=== PATIENT | female | born 1955 | race African-American/Black ===

== ENCOUNTER 2018-11-20 16:05 | Observation (INO) | payer OTHER ==
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
--- OUTSIDE RECORDS SUMMARY | 2018-11-20 16:08 | XMS REPORT | Clinical Summary ---
:1955 Author Organization [facility] Address [address] [place] [address] Care Team Providers Name Role Phone Michelle Pollard MD Primary Care Provider Allergies No Known Allergies Medications Medication Sig Dispensed Refills Start Date End Date Status metoprolol succinate Take 25 mg by 0 Active XL (TOPROL-XL) 25 MG mouth daily. 24 hr tablet zolpidem (AMBIEN) 10 Take 10 mg by 0 Active mg tablet mouth nightly as needed for sleep. therapeutic Take 1 tablet by 0 Active multivitamin mouth daily. (THERAGRAN) tablet exemestane (AROMASIN) Take 25 mg by 3 04/08/2017 Active 25 mg chemo tablet mouth once daily. atorvastatin (LIPITOR) Take 10 mg by 3 04/27/2017 Active 10 MG tablet mouth once daily. HYDROcodone-acetaminop Take 1 tablet by 0 Active hen (NORCO) 5-325 mg mouth every 6 per tablet (six) hours as needed for moderate pain. ASPIRIN/CAFFEINE Take 500 mg by 0 Active (MOLLY BACK AND BODY mouth as needed. ORAL) Active Problems Problem Noted Date Recurrent left pleural effusion 09/01/2016 Pleural effusion on left 08/25/2016 Family History Medical History Relation Name Comments Lung cancer Father Breast cancer Sister Breast cancer Sister Ovarian cancer Sister Relation Name Status Comments Father Sister Sister Sister Social History Tobacco Use Types Packs/Day Years Used Date Former Smoker Cigarettes 5 Quit: 06/03/1997 Alcohol Use Drinks/Week oz/Week Comments No Sex Assigned at Date Recorded Not on file Job Start Date Occupation Industry Not on file Not on file Not on file Travel History Travel Start Travel End No recent travel history available. Last Filed Vital Signs Not on file Plan of Treatment Health Maintenance Due Date Last Done Comments CERVICAL CANCER SCREENING 1977 COLON CANCER SCREENING 2006 SHINGLES VACCINES (1 of 2) 2006 BREAST CANCER SCREENING 04/08/2014 04/08/2012 INFLUENZA VACCINE 06/08/2018 Results Not on fileafter 11/19/2017 Insurance Payer Benefit Plan / Group Subscriber ID Type Phone Address MEDICARE MEDICARE PART A AND B xxxxxxxxxx Medicare [place], [place] MEDICAID MEDICAID xxxxxxxxx Medicaid Advance Directives Patient has advance care planning documents on file. For more information, please contact:Don Sam[address] [place] [address]
[2018-11-20] MEDS ORDERED: TETANUS & DIPHTHERIA TOX,ADULT 0.5 ML VIAL ONE (16:21)
--- NOTE | 2018-11-20 17:23 | RAD REPORT ---
EXAM DESCRIPTION: RAD - Chest Single View - 11/20/2018 5:13 pm CLINICAL HISTORY: CHEST PAIN Chest pain. COMPARISON: Chest Pa And Lat (2 Views) dated 01/11/2018; Chest Single View dated 08/21/2016; Chest Sin gle View dated 08/21/2016; Chest Single View dated 08/20/2016 FINDINGS: Portable technique limits examination quality. Emphysematous changes are present with a small amount of haziness in the left base with a small left pleural effusion. The heart is normal in size. Mild dextroscoliosis of the thoracic spine is present.
[2018-11-20 17:26] LABS: Absolute Lymphocytes (CBC) 2.8 K/uL (0.7-4.9); Absolute Monocytes 0.4 K/uL (0.1-1.3); Absolute Neutrophil 2.7 K/uL (1.8-8.0); Basophils % 2.1 % (0-1.3); Eosinophils % 2.2 % (0-4.4); Hematocrit 35.8 % (36.0-45.0); Lymphocytes % 45.7 % (15.3-44.8); MPV 7.4 fL (7.6-11.3); Monocytes % 7.1 % (3.3-12.3); RBC Red Blood Cell Count 3.45 M/uL (3.86-4.86)
[2018-11-20 17:30] LABS: Protime INR 1.03
[2018-11-20 17:46] LABS: Albumin 3.4 g/dL (3.4-5.0); Bilirubin Direct 0.1 mg/dL (0-0.2); Bilirubin Total 0.4 mg/dL (0.2-1.0); Magnesium 2.2 mg/dL (1.8-2.4); Potassium 4.2 mmol/L (3.5-5.1); Protein, Total 7.7 g/dL (6.4-8.2); Troponin (Emerg Dept Use Only) 0.02 ng/mL (0.0-0.045)
[2018-11-20] MEDS ORDERED: LEVALBUTEROL 1.25 MG/3 ML NEB ONE (18:02)
[2018-11-20 18:27] LABS: Platelet Estimate DECR; Urine White Blood Cell Casts OK
[2018-11-20 18:28] LABS: Blood Morphology Comment NOT SEEN (NOT SEEN)
--- NOTE | 2018-11-20 20:21 | EDPHYS ---
Physician Documentation [facility] Name: Angie Spring Age: 63 yrs Sex: Female : 1955 Arrival Date: 11/20/2018 Time: 16:06 Bed 6 Private MD: Michelle Pollard ED Physician Fernando Anderson HPI: 11/20 16:24 This 63 yrs old Black Female presents to ER via Wheelchair with complaints of Chest jmm Pain, Shortness Of Breath. 16:24 The patient or guardian reports chest pain that is located primarily in the substernal jmm area. Onset: gradually, 1 week(s) ago. The pain does not radiate. Associated signs and symptoms: Pertinent positives: shortness of breath. The chest pain is described as aching, sharp. Duration: The patient or guardian reports multiple episodes, that are intermittent. This is a 63 year old female with a history of breast cancer, htn, that presents to the ED with substernal chest pain beginning approx a week ago with shortness of breath. Patient denies fever. States symptoms are worsened with exertion. . Historical: - Allergies: 16:12 No Known Allergies; aj1 - Home Meds: 16:12 anastrozole Oral [Active]; metoprolol [Active]; Zolpidem Tartrate Oral [Active]; aj1 - PMHx: 16:12 breast cancer; Hypertension; lymphedema; fluid around lungs; aj1 - Immunization history:: Flu vaccine is up to date. - Social history:: Smoking status: Patient/guardian denies using tobacco. - Ebola Screening: : Patient denies travel to an Ebola-affected area in the 21 days before illness onset. ROS: 16:24 Constitutional: Negative for fever, chills, and weight loss, Eyes: Negative for injury, jmm pain, redness, and discharge. 16:24 Abdomen/GI: Negative for abdominal pain, nausea, vomiting, diarrhea, and constipation, MS/Extremity: Negative for injury and deformity, Skin: Negative for injury, rash, and discoloration, Neuro: Negative for headache, weakness, numbness, tingling, and seizure. 16:24 Cardiovascular: Positive for chest pain. 16:24 Respiratory: Positive for shortness of breath. 16:24 All other systems are negative. Exam: 16:24 Constitutional: This is a well developed, well nourished patient who is awake, alert, jmm and in no acute distress. Head/Face: atraumatic. Eyes: EOMI, no conjunctival erythema appreciated ENT: Moist Mucus Membranes Neck: Trachea midline, Supple Chest/axilla: Normal chest wall appearance and motion. Cardiovascular: Regular rate and rhythm. No edema appreciated Respiratory: Normal respirations, no respiratory distress appreciated Abdomen/GI: Non distended, soft Back: Normal ROM Skin: General appearance color normal MS/ Extremity: Moves all extremities, no obvious deformities appreciated, no edema noted to the lower extremities Neuro: Awake and alert, normal gait Psych: Behavior is normal, Mood is normal, Patient is cooperative and pleasant 16:24 Cardiovascular: Rate: normal, Rhythm: regular, Pulses: no pulse deficits are appreciated. 16:24 Respiratory: the patient does not display signs of respiratory distress, Respirations: normal, Breath sounds: are clear throughout. Vital Signs: 16:12 BP 141 / 75; Pulse 99; Resp 28; Temp 97.7; Pulse Ox 100% on R/A; Weight 95.25 kg (R); aj1 Height 5 ft. 8 in. (172.72 cm) (R); Pain 6/10; 16:56 Pulse 89; Resp 24; Pulse Ox 98% ; sv 17:40 BP 121 / 74; Pulse 88; Resp 18; Pulse Ox 98% on R/A; sv 18:47 BP 131 / 86; Pulse 93; Resp 16; Pulse Ox 98% on R/A; sv 21:34 BP 122 / 73; Pulse 95; Resp 18; Pulse Ox 97% on R/A; tl2 23:00 BP 122 / 73; Pulse 98; Resp 22; Pulse Ox 97% on R/A; tl2 16:12 Body Mass Index 31.93 (95.25 kg, 172.72 cm) aj1 MDM: 16:24 Patient medically screened. [facility] 20:19 Data reviewed: vital signs, nurses notes. Counseling: I had a detailed discussion with karan the patient and/or guardian regarding: the historical points, exam findings, and any diagnostic results supporting the discharge/admit diagnosis, lab results, radiology results, the need for further work-up and treatment in the hospital. ED course: I discussed the patient with Dr. Yeung whom accepted admission. 11/20 16:25 Order name: Basic Metabolic Panel; Complete Time: 17:48 [facility] 11/20 16:25 Order name: CBC with Diff; Complete Time: 18:28 [facility] 11/20 16:25 Order name: LFT's; Complete Time: 17:48 [facility] 11/20 16:25 Order name: Magnesium; Complete Time: 17:48 [facility] 11/20 16:25 Order name: NT PRO-BNP; Complete Time: 17:48 [facility] 11/20 16:25 Order name: PT-INR; Complete Time: 17:44 [facility] 11/20 16:25 Order name: Troponin (emerg Dept Use Only); Complete Time: 17:48 [facility] 11/20 16:25 Order name: XRAY Chest (1 view); Complete Time: 17:30 [facility] 11/20 16:25 Order name: EKG; Complete Time: 16:26 [facility] 11/20 16:25 Order name: Cardiac monitoring; Complete Time: 16:54 [facility] 11/20 17:31 Order name: CBC Smear Scan; Complete Time: 18:28 [facility] 11/20 20:12 Order name: D-Dimer [facility] 11/20 16:25 Order name: EKG - Nurse/Tech; Complete Time: 16:54 [facility] 11/20 16:25 Order name: IV Saline Lock; Complete Time: 16:54 [facility] 11/20 16:25 Order name: Labs collected and sent; Complete Time: 16:54 [facility] 11/20 16:25 Order name: O2 Per Protocol; Complete Time: 16:54 [facility] 11/20 16:25 Order name: O2 Sat Monitoring; Complete Time: 16:54 [facility] Administered Medications: 17:56 Drug: Xopenex (3) 1.25 mg Route: Inhalation; sv 22:27 Drug: Aspirin Chewable Tablet 324 mg Route: PO; tl2 11/21 00:13 Follow up: Response: No adverse reaction lp1 Disposition: 11/20/18 20:20 Hospitalization ordered by Jonathon Yeung for Observation. Preliminary diagnosis is Chest pain, unspecified. - Bed requested for Telemetry/MedSurg (observation). - Status is Observation. lp1 - Condition is Stable. - Problem is new. - Symptoms are unchanged. UTI on Admission? No Addendum: 11/25/2018 01:34 Co-signature as Attending Physician, Fernando Anderson MD. g s Signatures: Dispatcher [employer] EDOK Lorrie Mejia, RN RN aj1 Brigid Pichardo, RN RN Sen Calderon PA PA [facility] Lia Vega, RN RN Leticia Astudillo, RN RN lp1 Leyda Siu, RN RN tl2 Fernando Anderson MD MD Corrections: (The following items were deleted from the chart) 11/20 22:35 20:20 Hospitalization Ordered by Jonathon Yeung MD for Observation. Preliminary diagnosis is Chest pain, unspecified. Bed requested for Telemetry/MedSurg (observation). Status is Observation. Condition is Stable. Problem is new. Symptoms are unchanged. UTI on Admission? No. [facility] 11/21 00:13 11/20 22:35 11/20/2018 20:20 Hospitalization Ordered by Jonathon Yeung MD for lp1 Observation. Preliminary diagnosis is Chest pain, unspecified. Bed requested for Telemetry/MedSurg (observation). Status is Observation. Condition is Stable. Problem is new. Symptoms are unchanged. UTI on Admission? No. fc
--- NOTE | 2018-11-20 20:21 | ER ---
Nurse's Notes [facility] Name: Angie Spring Age: 63 yrs Sex: Female : 1955 Arrival Date: 11/20/2018 Time: 16:06 Bed 6 Private MD: Michelle Pollard Diagnosis: Chest pain, unspecified Presentation: 11/20 16:09 Presenting complaint: Patient states: Shortness of breath, light headedness, chest pain aj1 for the past week. Reports nasal congestion and discharge, denies cough. Denies fever. Transition of care: patient was not received from another setting of care. Onset of symptoms was November 13, 2017. Risk Assessment: Do you want to hurt yourself or someone else? Patient reports no desire to harm self or others. Initial Sepsis Screen: Does the patient meet any 2 criteria? HR > 90 bpm. No. Patient's initial sepsis screen is negative. Does the patient have a suspected source of infection? No. Patient's initial sepsis screen is negative. Care prior to arrival: None. 16:09 Method Of Arrival: Wheelchair aj1 16:09 Acuity: KAT 3 aj1 Triage Assessment: 16:12 General: Appears in no apparent distress. uncomfortable, Behavior is calm, cooperative, aj1 appropriate for age. Pain: Complains of pain in chest Pain currently is 6 out of 10 on a pain scale. Is intermittent. Neuro: Level of Consciousness is awake, alert, obeys commands. Cardiovascular: Reports chest pain, lightheadedness, shortness of breath, Patient's skin is warm and dry. Respiratory: Reports shortness of breath Airway is patent Respiratory effort is even, labored, Respiratory pattern is regular, symmetrical, tachypnea. Historical: - Allergies: 16:12 No Known Allergies; aj1 - Home Meds: 16:12 anastrozole Oral [Active]; metoprolol [Active]; Zolpidem Tartrate Oral [Active]; aj1 - PMHx: 16:12 breast cancer; Hypertension; lymphedema; fluid around lungs; aj1 - Immunization history:: Flu vaccine is up to date. - Social history:: Smoking status: Patient/guardian denies using tobacco. - Ebola Screening: : Patient denies travel to an Ebola-affected area in the 21 days before illness onset. Screenin:02 Abuse screen: Denies threats or abuse. Denies injuries from another. Nutritional sv screening: No deficits noted. Tuberculosis screening: No symptoms or risk factors identified. Fall Risk None identified. Assessment: 16:50 General: Appears in no apparent distress. uncomfortable, well developed, Behavior is sv calm, cooperative, appropriate for age. Pain: Complains of pain in chest Pain does not radiate. Pain currently is 6 out of 10 on a pain scale. Pain began suddenly, Is intermittent. Neuro: Level of Consciousness is awake, alert, obeys commands, Oriented to person, place, time, situation, Moves all extremities. Full function Gait is steady. Respiratory: Reports shortness of breath at rest on exertion Respiratory effort is even, unlabored, Respiratory pattern is regular, symmetrical. Derm: Skin is normal. 16:54 Reassessment: Inside lab called to get blood from pt. sv 17:02 Reassessment: Lab at bedside. sv 17:56 Reassessment: Patient appears in no apparent distress at this time. No changes from sv previously documented assessment. Patient and/or family updated on plan of care and expected duration. Pain level reassessed. Patient is alert, oriented x 3, equal unlabored respirations, skin warm/dry/pink. 18:20 Reassessment: Patient appears in no apparent distress at this time. No changes from sv previously documented assessment. Patient and/or family updated on plan of care and expected duration. Pain level reassessed. Patient is alert, oriented x 3, equal unlabored respirations, skin warm/dry/pink. 19:20 General: Appears in no apparent distress. uncomfortable, Behavior is calm, cooperative, lp1 appropriate for age. Pain: Complains of pain in chest Pain does not radiate. Neuro: Level of Consciousness is awake, alert, obeys commands, Oriented to person, place, time, situation. Cardiovascular: Chest pain is described as vague, is located in chest wall episodes are intermittent. Respiratory: Reports shortness of breath Airway is patent Respiratory effort is even, unlabored, Respiratory pattern is regular, symmetrical. GI: No signs and/or symptoms were reported involving the gastrointestinal system. Derm: Skin is pink, warm \T\ dry. 21:00 Reassessment: Patient appears in no apparent distress at this time. Patient and/or lp1 family updated on plan of care and expected duration. Pain level reassessed. Patient is alert, oriented x 3, equal unlabored respirations, skin warm/dry/pink. 22:30 Reassessment: Patient appears in no apparent distress at this time. Patient and/or tl2 family updated on plan of care and expected duration. Pain level reassessed. Patient is alert, oriented x 3, equal unlabored respirations, skin warm/dry/pink. 23:30 Reassessment: Patient appears in no apparent distress at this time. Patient and/or lp1 family updated on plan of care and expected duration. Pain level reassessed. Patient is alert, oriented x 3, equal unlabored respirations, skin warm/dry/pink. pt stable and ready for transport to floor. Vital Signs: 16:12 BP 141 / 75; Pulse 99; Resp 28; Temp 97.7; Pulse Ox 100% on R/A; Weight 95.25 kg (R); aj1 Height 5 ft. 8 in. (172.72 cm) (R); Pain 6/10; 16:56 Pulse 89; Resp 24; Pulse Ox 98% ; sv 17:40 BP 121 / 74; Pulse 88; Resp 18; Pulse Ox 98% on R/A; sv 18:47 BP 131 / 86; Pulse 93; Resp 16; Pulse Ox 98% on R/A; sv 21:34 BP 122 / 73; Pulse 95; Resp 18; Pulse Ox 97% on R/A; tl2 23:00 BP 122 / 73; Pulse 98; Resp 22; Pulse Ox 97% on R/A; tl2 16:12 Body Mass Index 31.93 (95.25 kg, 172.72 cm) [facility] Vitals: 21:34 Cardiac Rhythm Assessment Sinus rhythm. tl2 ED Course: 16:05 Patient has correct armband on for positive identification. Placed in gown. Bed in low sv position. Call light in reach. lead maintenance technician on. Pulse ox on. NIBP on. Door closed. Warm blanket given. Head of bed elevated. 16:06 Patient arrived in ED. sb2 16:07 Michelle Pollard MD is Private Physician. sb2 16:12 Triage completed. aj 16:12 Arm band placed on Patient placed in an exam room. [facility] 16:18 [facility] 16:18 Fernando Anderson MD is Attending Physician. [facility] 16:36 Brigid Pichardo, RN is Primary Nurse. sv 16:50 Inserted saline lock: 22 gauge in left forearm, using aseptic technique. Flushed left sv forearm with 5 ml normal saline. 16:52 X-ray(s) taken. sv 17:03 Patient maintains SpO2 saturation greater than 95% on room air. sv 17:14 XRAY Chest (1 view) In Process Unspecified. EDMS 20:03 Primary Nurse role handed off by Brigid Pichardo, SEVERIANO sv 20:20 Jonathon Yeung MD is Hospitalizing Provider. [facility] 22:15 Notified ED physician of a critical lab result(s). d dimer 1720 - notified Dr Yeung. 23:30 No provider procedures requiring assistance completed. Patient admitted, IV remains in lp1 place. Administered Medications: 17:56 Drug: Xopenex (3) 1.25 mg Route: Inhalation; sv 22:27 Drug: Aspirin Chewable Tablet 324 mg Route: PO; tl2 11/21 00:13 Follow up: Response: No adverse reaction lp1 Outcome: 11/20 20:20 Decision to Hospitalize by Provider. [facility] 23:30 Admitted to Tele accompanied by tech, via stretcher, room 428, with chart, Report lp1 called to SEVERIANO Lucero 23:30 Condition: stable 23:30 Discharge instructions given to patient, Instructed on the need for admit. 11/21 00:13 Patient left the ED. lp1 Signatures: Dispatcher [employer] EDMS Lorrie Mejia RN RN aj1 Brigid Pichardo, RN RN Sen Galindo PA PA [facility] Lia Vega RN RN eLticia Astudillo RN RN lp1 Leyda Siu RN RN tl2 Anna Hilario sb2 Corrections: (The following items were deleted from the chart) 11/20 17:03 16:50 Inserted saline lock: 20 gauge in left forearm, using aseptic technique. Flushed sv left forearm with 5 ml normal saline sv
--- NOTE | 2018-11-20 21:44 | P.HP ---
Certification for Inpatient Patient admitted to: Observation With expected LOS: <2 Midnights Practitioner: I am a practitioner with admitting privileges, knowledge of patient current condition, hospital course, and medical plan of care. Services: Services provided to patient in accordance with Admission requirements found in Title 42 Section 412.3 of the Code of Federal Regulations Patient History Date of Service: 11/20/18 Reason for admission: chest pain History of Present Illness: Ms Spring is a 63 years old woman with history of breast cancer, HTN, Dyslipidemia, who came to ED complaining of episodes of SOB associated with chest pain, nasal congestion for about 1 week. She has had subjective fever episodes at home. She describe the chest pain as pressure like in substernal area, comes and go, lasting for 3-4 minutes each time, 5/10 of intensity. She has never had this pain before. Lab work shows normal WBC count, negative trop I , abnormal kidney function, EKG shows SR without ST-T abnormalities. Afebrile at arrival, CXR remarkable for COPD. Allergies No Known Allergies Allergy (Verified 08/18/16 03:47) Home Medications: Anastrozole [Arimidex*] 1 mg PO DAILY 08/18/16 Lovastatin [Mevacor*] 20 mg PO BEDTIME 08/18/16 Metoprolol Tartrate [Lopressor*] 25 mg PO DAILY 08/18/16 Zolpidem Tartrate [Ambien*] 10 mg PO BEDTIME PRN PRN 08/18/16 - Past Medical/Surgical History Diabetic: No -: Thyroid disease -: Breast cancer -: hypertension -: Insomnia -: Dyslipidemia -: Lumpectomy -: Thyroidectomy - Social History Smoking Status: Former smoker Alcohol use: No CD- Drugs: No Caffeine use: No Place of Residence: Home Review of Systems 10-point ROS is otherwise unremarkable Physical Examination - Physical Exam General: Alert, In no apparent distress HEENT: Atraumatic, PERRLA, Mucous membr. moist/pink, EOMI, Sclerae nonicteric Neck: Supple, 2+ carotid pulse no bruit, No LAD, Without JVD or thyroid abnormality Respiratory: Clear to auscultation bilaterally, Normal air movement Cardiovascular: Regular rate/rhythm, Normal S1 S2 Gastrointestinal: Normal bowel sounds, No tenderness Musculoskeletal: No tenderness Integumentary: No rashes Neurological: Normal gait, Normal speech, Normal strength at 5/5 x4 extr, Normal tone, Normal affect Lymphatics: No axilla or inguinal lymphadenopathy - Studies Laboratory Data (last 24 hrs) 11/20/18 17:05: PT 12.2, INR 1.03 11/20/18 17:05: WBC 6.2, Hgb 12.2, Hct 35.8 L, Plt Count 152 11/20/18 17:05: Sodium 143, Potassium 4.2, BUN 18, Creatinine 1.88 H, Glucose 103, Magnesium 2.2, Total Bilirubin 0.4, AST 19, ALT 15, Alkaline Phosphatase 57 Assessment and Plan - Problems (Diagnosis) (1) Breast cancer Current Visit: No Status: Acute Qualifiers: Breast location: unspecified site of breast Estrogen receptor status: unspecified Patient sex: female Laterality: unspecified laterality Qualified Code(s): C50.919 - Malignant neoplasm of unspecified site of unspecified female breast (2) Hypertension Current Visit: No Status: Acute Qualifiers: Hypertension type: essential hypertension Qualified Code(s): I10 - Essential (primary) hypertension (3) SOB (shortness of breath) Onset Date: 08/18/16 Current Visit: No Status: Acute - Plan The patient will be admitted to the hospital due to chest pain evaluation in order to rule out ACS. So fare negative work up. Will order serial cardiac enzymes, EKG, ECHO and cardiology consult. - Advance Directives Does patient have a Living Will: No Does patient have a Durable POA for Healthcare: No - Code Status/Comfort Care Code Status Assessed: Yes Code Status: Full Code
[2018-11-20] MEDS ORDERED: ASPIRIN 81 MG CHEWABLE TABLET ONE (22:32)
[2018-11-21] MEDS ORDERED: ACETAMINOPHEN 500 MG TAB PO PRN (00:29)
[2018-11-21] MEDS ORDERED: NITROGLYCERIN 0.4 MG/TAB SL PRN (00:29)
[2018-11-21] MEDS ORDERED: ENOXAPARIN 100 MG/ML SYR SQ SCH (04:00)
--- NOTE | 2018-11-21 07:58 | EKG ---
Test Date: 2018-11-20 Test Time: 17:02:53 Air Bag Buffer: HALLIE MEASUREMENT RESULTS: Intervals: Rate: 85 CA: 160 QRSD: 76 QT: 364 QTc: 433 [place]: P: 49 CA: 160 QRS: 47 T: 37 INTERPRETIVE STATEMENTS: Normal sinus rhythm Normal ECG Compared to ECG 08/17/2016 15:59:17 No significant changes Electronically Signed On 11-21-18 07:58:15 SORT WORKER by Jean-Paul Calderon
--- NOTE | 2018-11-21 08:27 | RAD REPORT ---
EXAM DESCRIPTION: US - Extrem Venous W Compress E[place] - 11/21/2018 8:16 am CLINICAL HISTORY: R/O DVT Bilateral leg edema and swelling. COMPARISON: No comparisons TECHNIQUE: Real-time sonographic interrogation of the left and right lower extremity deep venous sys tems was performed. FINDINGS: Normal compressibility, flow augmentation, phasic flow and spontaneous flow is identified in both the left and right lower extremity deep venous systems. IMPRESSION: No sonographic evidence of left or right lower extremity deep venous thrombosis.
[2018-11-21] MEDS ORDERED: ASPIRIN EC 81 MG TAB PO SCH (09:00)
[2018-11-21] MEDS ORDERED: REGADENOSON 0.4 MG/5 ML SYR IV ONE (10:16)
--- NOTE | 2018-11-21 12:07 | ECHO ---
HEIGHT: 5 ft 8 in WEIGHT: 222 lb 11.2 oz DATE OF STUDY: 11/21/[address]: Jonathon Julien MD 2-DIMENSIONAL: YES M.MODE: YES DOPPLER: YES COLOR FLOW: YES TDS: NO PORTABLE: NO DEFINITY: NO BUBBLE STUDY: NO DIAGNOSIS: CHEST PAIN, SHORTNESS OF BREATH CARDIAC HISTORY: CATHERIZATION: NO SURGERY: NO PROSTHETIC VALVE: NO PACEMAKER: NO MEASUREMENTS (cm) DIASTOLIC (NORMALS) SYSTOLIC (NORMALS) IVSd 1.1 (0.6-1.2) LA Diam 3.3 (1.9-4.0) LVEF 74% LVIDd 4.3 (3.5-5.7) LVIDs 2.5 (2.0-3.5) %FS 43% LVPWd 1.1 (0.6-1.2) Ao Diam 3.0 (2.0-3.7) 2 DIMENSIONAL ASSESSMENT: RIGHT ATRIUM: NORMAL LEFT ATRIUM: NORMAL RIGHT VENTRICLE: NORMAL LEFT VENTRICLE: NORMAL TRICUSPID VALVE: NORMAL MITRAL VALVE: NORMAL PULMONIC VALVE: NORMAL AORTIC VALVE: NORMAL PERICARDIAL EFFUSION: NONE AORTIC ROOT: NORMAL LEFT VENTRICULAR WALL MOTION: NORMAL. DOPPLER/COLOR FLOW: NORMAL. COMMENTS: NORMAL 2D ECHOCARDIOGRAM WITH DOPPLER. TECHNOLOGIST: VICTORINO WILHELM RDCS
--- NOTE | 2018-11-21 13:50 | P.SSS ---
Patient History Date of Service: 11/21/18 Reason for admission: chest pain History of Present Illness: Ms Spring is a 63 years old woman with history of breast cancer, HTN, Dyslipidemia, who came to ED complaining of episodes of SOB associated with chest pain, nasal congestion for about 1 week. She has had subjective fever episodes at home. She describe the chest pain as pressure like in substernal area, comes and go, lasting for 3-4 minutes each time, 5/10 of intensity. She has never had this pain before. Lab work shows normal WBC count, negative trop I , abnormal kidney function, EKG shows SR without ST-T abnormalities. Afebrile at arrival, CXR remarkable for COPD. Allergies No Known Allergies Allergy (Verified 11/21/18 02:52) Home Medications: Zolpidem Tartrate [Ambien*] 10 mg PO BEDTIME PRN PRN 08/18/16 Metoprolol Tartrate [Lopressor*] 25 mg PO DAILY 11/21/18 Vit D3/Folic Acid/B2/B6/B12 [Folgard Tablet] 1 each PO DAILY 11/21/18 - Past Medical/Surgical History Has patient received pneumonia vaccine in the past: Yes Diabetic: No -: Thyroid disease -: Breast cancer -: hypertension -: Insomnia -: Dyslipidemia -: Lumpectomy -: Thyroidectomy - Family History Brother -: Hypertension Sister -: Hypertension - Social History Smoking Status: Former smoker Alcohol use: No CD- Drugs: No Caffeine use: Yes Place of Residence: Home Review of Systems 10-point ROS is otherwise unremarkable Physical Examination - Vital Signs Temperature: 97.3 F Blood Pressure: 121/58 Pulse: 94 Respirations: 20 Pulse Ox (%): 99 - Physical Exam General: Alert, In no apparent distress HEENT: Atraumatic, PERRLA, Mucous membr. moist/pink, EOMI, Sclerae nonicteric Neck: Supple, 2+ carotid pulse no bruit, No LAD, Without JVD or thyroid abnormality Respiratory: Clear to auscultation bilaterally, Normal air movement Cardiovascular: Regular rate/rhythm, Normal S1 S2 Gastrointestinal: Normal bowel sounds, No tenderness Musculoskeletal: No tenderness Integumentary: No rashes Neurological: Normal gait, Normal speech, Normal strength at 5/5 x4 extr, Normal tone, Normal affect Lymphatics: No axilla or inguinal lymphadenopathy - Studies Laboratory Data (last 24 hrs) 11/20/18 17:05: PT 12.2, INR 1.03 11/20/18 17:05: WBC 6.2, Hgb 12.2, Hct 35.8 L, Plt Count 152 11/20/18 17:05: Sodium 143, Potassium 4.2, BUN 18, Creatinine 1.88 H, Glucose 103, Magnesium 2.2, Total Bilirubin 0.4, AST 19, ALT 15, Alkaline Phosphatase 57 Treatment Summary: Overall during the hospital stay patient remained stable Patient was initially admitted to the hospital for having chest pain. Troponin x2 was negative. Initial EKG was negative for any acute abnormality. Cardiology was consulted who recommended echocardiogram and stress test. Both of which were done here in the hospital. Echocardiogram and stress test were will within normal limits no signs of acute coronary syndrome. Patient then was discharged home under stable condition was asked to follow up with primary care provider in about 1-2 days post discharge. Patient chest pain was most likely secondary to Anxiety vs GERD. Patient thus was asked to follow up with primary care provider for further treatment. - Disposition Condition: GOOD Patient Discharge Instructions: Please followup with PCP and cardiology in about 1-2 weeks post discharge. No new medications Diet: Regular Activity: Ad martina
--- NOTE | 2018-11-21 15:28 | CON ---
CARDIOLOGY CONSULT Chief Complaint: Shortness of breath. History Of Present Illness: The patient has been to the emergency room 3 different times for the ariel e symptoms over the last several months. She gets pain in the chest, and if she walks very far, she g ets very out of breath. Sometimes, she describes it as pain and tightness. The patient has never had heart disease in the past. She does not have diabetes, dyslipidemia, or smoking history. She has a history of breast cancer, had a mastectomy. Has lymphedema in the right arm because of that. She ta kes a blood pressure medicine, metoprolol. Outpatient medications are vitamin D3, metoprolol and zol pidem. She has no allergies. Alcohol use, none. Tobacco use, none. Physical Examination: General: She is 5 feet 8 inches, 222 pounds. Obese. Alert, oriented, pleasant. Not in distress. Lungs: Clear. Heart Exam: Within normal limits. Abdomen: Soft. Extremities: Palpable distal pulses. Her right arm has 2 to 3+ lymphedema. Left arm, no edema. Diagnostic Data: Electrocardiogram shows sinus rhythm and it is normal in every way. Impression: Mrs. Spring has pain that is suspicious at least for being due to coronary heart disease. Her enzymes are normal. EKGs normal. I would recommend we do an echocardiogram and pharmacologic n uclear stress test. After that, we will see what we need to see if she has a perfusion defect on str ess imaging. We will do a cardiac cath. Her echocardiogram preliminary report is her ejection fract ion is normal without any significant valvular heart disease. Thank you very much for your kind referral of Mrs. Angie Spring. I will follow her with you. DANILO Voice ID: [id number] Report ID: [id number]
== END 2018-11-21 17:40 | disposition home or self-care (01) ==
LOC: ER 16:05 → ERHOLD 21:31 → 4TH 23:29
PROVIDERS: ADMIT Internal Medicine; ATTEND Internal Medicine
DX: R07.9 Chest pain, unspecified (principal); I10 Essential (primary) hypertension; E78.5 Hyperlipidemia, unspecified; Z85.3 Personal history of malignant neoplasm of breast; Z87.891 Personal history of nicotine dependence
CPT/HCPCS: 36415; 71045; 80048; 80061; 80076; 83735; 83880; 84484 ×4; 85025; 85379; 85610; 93005; 93306; 93970; 99285; G0378 ×2; J1650; 90714; J2785

== ENCOUNTER 2019-01-15 14:04 | Observation (INO) | payer OTHER ==
--- OUTSIDE RECORDS SUMMARY | 2019-01-15 14:07 | XMS REPORT | Clinical Summary ---
:1955 Author Organization [facility] Address [address] [place] [address] Care Team Providers Name Role Phone Michelle [...] 1976 COLON CANCER SCREENING 2006 SHINGLES VACCINES (#1) 2006 BREAST CANCER SCREENING 04/08/2014 04/08/2012 INFLUENZA VACCINE 06/08/2018 Results Not on fileafter 01/14/2018 Insurance Payer Benefit Plan / Group Subscriber ID Type Phone Address MEDICARE MEDICARE PART A AND B xxxxxxxxxx Medicare [place], [place] MEDICAID MEDICAID xxxxxxxxx Medicaid Advance Directives Patient has advance care planning documents on file. For more information, please contact:Don Sam[address] [place] [address]
[2019-01-15 14:54] LABS: Absolute Lymphocytes (CBC) 1.3 K/uL (0.7-4.9); Absolute Monocytes 0.2 K/uL (0.1-1.3); Absolute Neutrophil 4.3 K/uL (1.8-8.0); Eosinophils % 0.9 % (0-4.4); Hematocrit 31.4 % (36.0-45.0); Lymphocytes % 21.5 % (15.3-44.8); MPV 6.9 fL (7.6-11.3); Protime INR 1.27
[2019-01-15 15:19] LABS: Albumin 2.7 g/dL (3.4-5.0); Bilirubin Direct 0.2 mg/dL (0-0.2); Bilirubin Total 0.6 mg/dL (0.2-1.0); Magnesium 2.1 mg/dL (1.8-2.4); Potassium 3.4 mmol/L (3.5-5.1); Troponin (Emerg Dept Use Only) 0.1 ng/mL (0.0-0.045)
--- NOTE | 2019-01-15 15:28 | RAD REPORT ---
EXAM DESCRIPTION: RAD - Chest Single View - 01/15/2019 2:50 pm CLINICAL HISTORY: CHEST PAIN Chest pain. COMPARISON: Chest Single View dated 11/20/2018; Chest Pa And Lat (2 Views) dated 01/11/2018; Chest Sing le View dated 08/21/2016; Chest Single View dated 08/21/2016 FINDINGS: Portable technique limits examination quality. The lungs are grossly clear. Small left pleural effusion suspected. The heart is normal in size. No d isplaced fractures.Aortic atherosclerosis.
--- NOTE | 2019-01-15 17:02 | RAD REPORT ---
EXAM DESCRIPTION: CT - Chest Abdomen Pelvis W Cont - 01/15/2019 4:47 pm CLINICAL HISTORY: Chest and abdomen pain. abdominal pain, IV ONLY COMPARISON: Bone Imaging Whole Body dated 04/07/2017 TECHNIQUE: Approximately 100 mL nonionic IV contrast was administered to the patient. All CT scans are performed using dose optimization technique as appropriate and may include automated exposure control or mA/KV adjustment according to patient size. FINDINGS: Opacity is present in the left lung base, likely an area of aspiration or atelectasis. Sma ll left pleural effusion is seen.Small hiatal hernia.No intrathoracic adenopathy. Mild ascites is seen. Fatty liver is noted. The spleen, pancreas, adrenal glands left kidney normal. Right kidney contains a 12 mm cyst lateral right kidney. No bowel obstruction, free air, free fluid or abscess. Normal appendix. Sigmoid diverticulosis is pre sent without diverticulitis. No pathologic lymphadenopathy in the abdomen or pelvis. Areas of sclerosis are seen throughout the axial skeleton raising suspicion for blastic bony metastat ic disease. IMPRESSION: Small left lung base opacity with small left pleural effusion suspicious for aspiration or pneumonia. Mild ascites with fatty liver. Subtle areas sclerosis seen in the axial skeleton suspicious for bony metastasis. Recommend nuclear m edicine bone scan correlation for followup assessment.
--- NOTE | 2019-01-15 17:31 | RAD REPORT ---
EXAM DESCRIPTION: US - Abdomen Exam Limited - 01/15/2019 5:12 pm CLINICAL HISTORY: EPIGASTRIC PAIN COMPARISON: No comparisons FINDINGS: The gallbladder demonstrates no gallstones. No pericholecystic fluid or gallbladder wall t hickening. The common bile duct is normal measuring 4 mm. Mild ascites noted. IMPRESSION: Negative gallbladder/ biliary tree findings.
[2019-01-15 18:24] LABS: Urine Bacteria <20 /HPF (<20); Urine Culture Reflex Order NOT NEEDED; Urine RBC <5 /HPF (NONE SEEN)
--- NOTE | 2019-01-15 19:52 | RAD REPORT ---
EXAM DESCRIPTION: CT - Abdomen Pelvis Wo Contrast - 01/15/2019 7:37 pm CLINICAL HISTORY: Abdominal pain. oral only COMPARISON: No comparisons TECHNIQUE: CT imaging of the abdomen and pelvis was performed without contrast. Solid organ and vasc ular assessment is limited due to lack of IV contrast. All CT scans are performed using dose optimization technique as appropriate and may include automated exposure control or mA/KV adjustment according to patient size. FINDINGS: Left basilar lung opacity may represent an area of aspiration or atelectasis. Trace left p leural fluid is seen. Small hiatal hernia is noted. Mild ascites is noted in the abdomen. Several mildly prominent small bowel loops are seen with slight ly thickened vazquez which could indicate enteritis.No acute solid organ abnormality. No evidence of or al contrast spillage into the peritoneal cavity. An abscess is not present. No free air. Moderate sigmoid diverticulosis coli without diverticulitis. The appendix is normal. Moderate degenerative changes present in the lower lumbar spine. Vague areas of sclerosis seen throug hout the axial skeleton raise the possibility of bony metastatic disease. IMPRESSION: Mild ascites with mildly prominent small bowel loops demonstrating mild fold thickening. This may indicate a nonspecific small bowel enteritis. No evidence of oral contrast spillage into th e peritoneal cavity. Subtle areas of sclerosis are present in the axial skeleton raising suspicion for bony metastasis. Fo llowup nuclear medicine bone scan would be recommended. Sigmoid diverticulosis coli is present without diverticulitis. Small left pleural effusion with opacity in the left lung base which may represent an area of aspirat ion or atelectasis. A limited non-contrast examination was performed as detailed.
--- NOTE | 2019-01-15 19:59 | ER ---
Nurse's Notes [facility] Name: Angie Spring Age: 63 yrs Sex: Female : 1955 Arrival Date: 01/15/2019 Time: 14:05 Bed 15 Private MD: Diagnosis: Non-ST elevation (NSTEMI) myocardial infarction Presentation: 01/15 14:17 Presenting complaint: Patient states: Substernal chest pain x 2-3 days, also c/o ph palpitations, upper abdominal pain, SOB, N/V. Transition of care: patient was not received from another setting of care. Onset of symptoms was January 15, 2019. Risk Assessment: Do you want to hurt yourself or someone else? Patient reports no desire to harm self or others. Initial Sepsis Screen: Does the patient meet any 2 criteria? No. Patient's initial sepsis screen is negative. Does the patient have a suspected source of infection? No. Patient's initial sepsis screen is negative. Care prior to arrival: None. 14:17 Method Of Arrival: Ambulatory ph 14:17 Acuity: KAT 2 ph Historical: - Allergies: 14:20 No Known Allergies; ph - Home Meds: 14:20 anastrozole Oral [Active]; metoprolol [Active]; Zolpidem Tartrate Oral [Active]; ph - PMHx: 14:20 breast cancer; fluid around lungs; Hypertension; lymphedema; ph - Immunization history:: Adult Immunizations unknown. - Social history:: Smoking status: Patient/guardian denies using tobacco. - Ebola Screening: : No symptoms or risks identified at this time. Screenin:20 Abuse screen: Denies threats or abuse. Denies injuries from another. Nutritional aj1 screening: No deficits noted. Tuberculosis screening: No symptoms or risk factors identified. 23:10 Fall Risk No fall in past 12 months (0 pts). Secondary diagnosis (15 points) impaired aj1 mobility, IV access (20 points). Ambulatory Aid- None/Bed Rest/Nurse Assist (0 pts). Gait- Weak (10 pts.). Mental Status- Oriented to own ability (0 pts). Total Reza Fall Scale indicates High Risk Score (45 or more points). Frequent Obs/Assessments Occuring As available patient and family educated on Fall Prevention Program and Strategies. Assessment: 14:20 General: Appears in no apparent distress. uncomfortable, Behavior is calm, cooperative. aj1 Pain: Complains of pain in mid-sternal area and abdomen Pain does not radiate. Pain currently is 8 out of 10 on a pain scale. Pain began suddenly. Neuro: Level of Consciousness is awake, alert, obeys commands, Oriented to person, place, time, situation, Speech is normal. Cardiovascular: Reports chest pain, palpitations, shortness of breath, Heart tones S1 S2 present Patient's skin is warm and dry. Rhythm is sinus tachycardia. Respiratory: Airway is patent Respiratory effort is even, unlabored, Respiratory pattern is regular, symmetrical, Breath sounds are diminished in left posterior lower lobe and right posterior lower lobe. GI: Abdomen is round Bowel sounds present X 4 quads. Abd is soft X 4 quads Abdomen is tender to palpation X 4 quads. Reports nausea, vomiting. : No signs and/or symptoms were reported regarding the genitourinary system. EENT: No signs and/or symptoms were reported regarding the EENT system. Derm: No signs and/or symptoms reported regarding the dermatologic system. Skin is pink, warm \T\ dry. normal. Musculoskeletal: No signs and/or symptoms reported regarding the musculoskeletal system. Circulation, motion, and sensation intact. 15:43 Reassessment: Patient appears in no apparent distress at this time. No changes from aj1 previously documented assessment. Patient and/or family updated on plan of care and expected duration. Pain level reassessed. Patient is alert, oriented x 3, equal unlabored respirations, skin warm/dry/pink. 17:32 Reassessment: Patient appears in no apparent distress at this time. Patient and/or ch family updated on plan of care and expected duration. Pain level reassessed. Patient is alert, oriented x 3, equal unlabored respirations, skin warm/dry/pink. pt c/o pain, medicated per orders. pt oob to bsc, tolerated well. 18:06 Reassessment: Patient appears in no apparent distress at this time. Patient and/or ch family updated on plan of care and expected duration. Pain level reassessed. Patient is alert, oriented x 3, equal unlabored respirations, skin warm/dry/pink. pt awaiting admission to floor. 19:09 Reassessment: Patient and/or family updated on plan of care and expected duration. Pain aj1 level reassessed. General: Appears in no apparent distress. comfortable, Behavior is calm, cooperative. Neuro: Level of Consciousness is awake, alert, obeys commands, Oriented to person, place, time, situation, Speech is normal. Cardiovascular: Heart tones S1 S2 present Patient's skin is warm and dry. Rhythm is sinus rhythm. Respiratory: Airway is patent Respiratory effort is even, unlabored, Respiratory pattern is regular, symmetrical. GI: Abdomen is round. Derm: No signs and/or symptoms reported regarding the dermatologic system. Skin is pink, warm \T\ dry. normal. Musculoskeletal: No signs and/or symptoms reported regarding the musculoskeletal system. Circulation, motion, and sensation intact. 20:07 Reassessment: Patient appears in no apparent distress at this time. No changes from [facility] previously documented assessment. Patient and/or family updated on plan of care and expected duration. Pain level reassessed. Patient is alert, oriented x 3, equal unlabored respirations, skin warm/dry/pink. 21:05 Reassessment: Patient appears in no apparent distress at this time. No changes from [facility] previously documented assessment. Patient and/or family updated on plan of care and expected duration. Pain level reassessed. Patient is alert, oriented x 3, equal unlabored respirations, skin warm/dry/pink. 21:43 Reassessment: Patient heart rate up to the 140's. Patient denies any new symptoms at [facility] this time. Reports that she is having intermittent chest pain, in the same manner that she has since arrival. Repeat EKG obtained and Dr. Yeung notified. Denies shortness of breath, denies palpitations. Breath sounds diminished bilaterally at bases. 21:50 Reassessment: DR. Yeung at bedside to evaluate patient. Order received to give [facility] patient Lopressor PO and monitor pt, if heart rate comes down to low 100's send patient upstairs. If heart rate has not improved in 2 hours, notify Dr. Yeung. 22:20 Reassessment: HR is down to 115, patient states that she is feeling better than when [facility] she originally arrived, but still isn't feeling well. Patient is sinus tachycardia on the monitor, respirations are even and unlabored. 22:32 Reassessment: Patient's heart rate is up to the 150's. Dr. Yeung at bedside to aj1 evaluate patient. Patient is sitting up on the side of the bed, reports that she is feeling nauseated and just threw up. No obvious blood noted in emesis. Order received to give patient Zofran 4mg IV and upgrade patient to ICU. Patient denies chest pain at this time, denies shortness of breath, denies palpitations. Patient is sinus tachycardia on the monitor, respirations are even and unlabored at this time. 23:10 Reassessment: Patient's heart rate has decreased to the 120's, remains sinus aj1 tachycardia on the monitor. General: Appears in no apparent distress. comfortable, Behavior is calm, cooperative. Neuro: Level of Consciousness is awake, alert, obeys commands, Oriented to person, place, time, situation, Speech is normal. Cardiovascular: Patient's skin is warm and dry. Respiratory: Airway is patent Respiratory effort is even, unlabored, Respiratory pattern is regular, symmetrical. GI: Abdomen is round distended, Abd is soft X 4 quads Abdomen is tender to palpation X 4 quads. Derm: Skin is pink, warm \T\ dry. normal. 01/16 15:50 Reassessment: pt waiting for a ride, refused to wait at the lobby;;. hj Vital Signs: 01/15 14:20 BP 117 / 81; Pulse 130; Resp 24; Temp 97.7; Pulse Ox 99% on R/A; Weight 97.52 kg; ph Height 5 ft. 7 in. (170.18 cm); 15:16 BP 112 / 75; Pulse 119; Resp 24; Pulse Ox 97% on R/A; aj1 17:32 BP 167 / 99; Pulse 94; Resp 21; Pulse Ox 99% on R/A; Pain 7/10; ch 18:07 BP 116 / 74; Pulse 108; Resp 22; Pulse Ox 99% on R/A; Pain 6/10; ch 19:10 BP 106 / 55; Pulse 94; Resp 18; Pulse Ox 95% on R/A; aj1 20:05 BP 125 / 85; Pulse 102; Resp 20; Pulse Ox 97% on R/A; aj1 21:10 BP 132 / 75; Pulse 108; Resp 20; Pulse Ox 98% on R/A; aj1 21:43 BP 137 / 98; Pulse 141; Resp 20; Pulse Ox 98% on R/A; ak1 22:17 BP 136 / 77; Pulse 117; Resp 18; Pulse Ox 98% on R/A; ak1 22:32 BP 120 / 68; Pulse 158; Resp 20; Pulse Ox 100% ; aj1 23:10 BP 114 / 82; Pulse 128; Resp 18; Pulse Ox 100% on R/A; aj1 14:20 Body Mass Index 33.67 (97.52 kg, 170.18 cm) ph ED Course: 14:05 Patient arrived in ED. mr 14:19 Triage completed. ph 14:20 Patient has correct armband on for positive identification. quality assurance monitor chassis on. Pulse aj1 ox on. NIBP on. 14:20 No provider procedures requiring assistance completed. Patient maintains SpO2 aj1 saturation greater than 95% on room air. 14:21 Arm band placed on Patient placed in an exam room, on a stretcher, on pvc monitor, ph on pulse oximetry. 14:30 Lorrie Mejia RN is Primary Nurse. aj1 14:40 Sen Galindo PA is PHCP. [facility] 14:40 Vidal Espinal MD is Attending Physician. jmm 14:40 Inserted saline lock: 24 gauge in left ,using aseptic technique. anterior chest wall. ss 14:49 XRAY Chest (1 view) In Process Unspecified. EDMS 14:58 Radiology exam delayed due to lab results not completed at this time. (BUN/Creatinine). kw1 15:43 Radiology exam delayed due to PA with pt at this time /drawing blood. sg3 16:22 Radiology exam delayed due to pt in CT. sg3 16:47 Chest Abdomen Pelvis W Cont In Process Unspecified. EDMS 16:47 CT completed. Patient tolerated procedure well. Patient moved back from CT. kw1 17:00 EKG done, by ED staff, reviewed by Sen PARKS. dh3 17:12 US Abdomen Limited In Process Unspecified. EDMS 18:04 Urine collected: hat, monica. dh3 19:04 EKG done, by ED staff, reviewed by Sen PARKS. dh3 19:37 CT Abd/Pelvis - Without Cont In Process Unspecified. EDMS 19:37 CT completed. Patient tolerated procedure well. Patient moved back from CT. kw1 19:58 Jonathon Yeung MD is Hospitalizing Provider. jmm 23:10 Patient admitted, IV remains in place. aj1 23:15 Report given to SEVERIANO Brantley, who will start her documentation as ER HOLD in [facility]. aj1 01/16 15:32 Echocardiogram with doppler done by coordinate measuring machine technician. tc Administered Medications: 01/15 16:30 Drug: NS 0.9% 1000 ml Route: IV; Rate: 1 bolus; Site: left upper arm; aj1 20:30 Follow up: IV Status: Completed infusion; IV Intake: 1000ml aj1 17:22 Drug: morphine 4 mg Route: IVP; Site: left upper arm; 19:36 Follow up: Response: No adverse reaction aj1 19:36 Follow up: Response: Pain is decreased aj1 17:22 Drug: Zofran 4 mg Route: IVP; Site: left upper arm; 19:37 Follow up: Response: No adverse reaction aj1 17:42 CANCELLED (will evaluate ct first): Aspirin Chewable Tablet 324 mg PO once; 81 mg jmm tablets x 4 20:56 Drug: Aspirin Chewable Tablet 324 mg Route: PO; aj1 22:00 Follow up: Response: No adverse reaction aj1 20:56 Drug: Lovenox 1 mg/kg Route: Sub-Q; Site: left lower abdomen; aj1 22:00 Follow up: Response: No adverse reaction aj1 20:57 Drug: Zofran 4 mg Route: IVP; Site: left upper arm; aj1 22:00 Follow up: Response: No adverse reaction aj1 22:26 Drug: Lopressor 25 mg Route: PO; ak1 23:15 Follow up: Response: No adverse reaction; No change in condition aj1 23:00 Drug: Zofran 4 mg Route: IVP; Site: left upper arm; aj1 01/16 00:06 Follow up: Response: No adverse reaction aj1 Intake: 01/15 20:30 IV: 1000ml; Total: 1000ml. aj1 Outcome: 19:58 Decision to Hospitalize by Provider. jmm 23:58 Admitted to ICU Other Patient ER HOLD aj1 23:58 critical 23:58 Discharge instructions given to patient, Instructed on the need for admit. 01/16 16:07 Patient left the ED. hj Signatures: Dispatcher [employer] EDMS Lisbeth Crawford RN RN Lorrie Mejia RN RN aj1 Sen Galindo PA PA jmm Daniel, Damaris mr Cisco, Pearl, RN RN ss Kathleen Otto, focus puller EKG Ttc Monica Orellana, RN RN ak1 Iman May, RN RN Sunny Wadsworth, RN RN Barrington, Maddie 3 Kassie Alas 1 Pirscila Avery 3 Corrections: (The following items were deleted from the chart) 01/15 23:19 21:43 Reassessment: Patient heart rate up to the 140's. Patient denies any new symptoms aj1 at this time. Reports that she is having intermittent chest pain, in the same manner that she has since arrival. Repeat EKG obtained and Dr. Yeung notified. aj1 23:55 22:32 Reassessment: Patient's heart rate is up to the 150's. Dr. Yeung at bedside to aj1 evaluate patient. Patient is sitting up on the side of the bed, reports that she is feeling nauseated and just threw up. No obvious blood noted in emesis. Order received to give patient Zofran 4mg IV and upgrade patient to ICU. aj1
--- NOTE | 2019-01-15 19:59 | EDPHYS ---
Physician Documentation [facility] Name: Angie Spring Age: 63 yrs Sex: Female : 1955 Arrival Date: 01/15/2019 Time: 14:05 Bed 15 Private MD: ED Physician Vidal Espinal HPI: 01/15 14:41 This 63 yrs old Black Female presents to ER via Ambulatory with complaints of Chest jmm Pain, Elevated Heart Rate. 14:41 The patient or guardian reports chest pain that is located primarily in the substernal jmm area. Onset: gradually, 5 day(s) ago. The pain radiates to Associated signs and symptoms: Pertinent positives: abdominal pain. This is a 63 year old female with a history of htn that presents to the ED with complaints of abdominal pain ongoing for the past 5 days. patient was diagnosed with gastroenteritits at another ED. Patient noticed today her heart rate was high and no complains of chest pain. . Historical: - Allergies: 14:20 No Known Allergies; ph - Home Meds: 14:20 anastrozole Oral [Active]; metoprolol [Active]; Zolpidem Tartrate Oral [Active]; ph - PMHx: 14:20 breast cancer; fluid around lungs; Hypertension; lymphedema; ph - Immunization history:: Adult Immunizations unknown. - Social history:: Smoking status: Patient/guardian denies using tobacco. - Ebola Screening: : No symptoms or risks identified at this time. ROS: 14:41 Constitutional: Negative for fever, chills, and weight loss, Respiratory: Negative for jmm shortness of breath, cough, wheezing, and pleuritic chest pain. 14:41 Back: Negative for injury and pain, MS/Extremity: Negative for injury and deformity, Skin: Negative for injury, rash, and discoloration, Neuro: Negative for headache, weakness, numbness, tingling, and seizure. 14:41 Cardiovascular: Positive for chest pain, palpitations. 14:41 Respiratory: Positive for shortness of breath. 14:41 Abdomen/GI: Positive for abdominal pain, nausea and vomiting. 14:41 All other systems are negative. Exam: 14:41 Head/Face: atraumatic. Eyes: EOMI, no conjunctival erythema appreciated ENT: Moist jmm Mucus Membranes Neck: Trachea midline, Supple Chest/axilla: Normal chest wall appearance and motion. 14:41 Constitutional: The patient appears in no acute distress, alert, awake. 14:41 Cardiovascular: Rate: tachycardic, Rhythm: regular. 14:41 Respiratory: the patient does not display signs of respiratory distress, Respirations: normal, Breath sounds: are clear throughout. 14:41 Abdomen/GI: Inspection: abdomen appears normal, Bowel sounds: normal, Palpation: soft, mild abdominal tenderness, in the right upper quadrant and left upper quadrant. 14:41 Back: ROM is normal. 14:41 Musculoskeletal/extremity: ROM: intact in all extremities. 14:41 Skin: Appearance: Color: normal in color. 14:41 Neuro: Orientation: is normal, Mentation: is normal, Memory: is normal. 14:41 Psych: Behavior/mood is pleasant, cooperative. Vital Signs: 14:20 BP 117 / 81; Pulse 130; Resp 24; Temp 97.7; Pulse Ox 99% on R/A; Weight 97.52 kg; ph Height 5 ft. 7 in. (170.18 cm); 15:16 BP 112 / 75; Pulse 119; Resp 24; Pulse Ox 97% on R/A; aj1 17:32 BP 167 / 99; Pulse 94; Resp 21; Pulse Ox 99% on R/A; Pain 7/10; ch 18:07 BP 116 / 74; Pulse 108; Resp 22; Pulse Ox 99% on R/A; Pain 6/10; ch 19:10 BP 106 / 55; Pulse 94; Resp 18; Pulse Ox 95% on R/A; aj1 20:05 BP 125 / 85; Pulse 102; Resp 20; Pulse Ox 97% on R/A; aj1 21:10 BP 132 / 75; Pulse 108; Resp 20; Pulse Ox 98% on R/A; aj1 21:43 BP 137 / 98; Pulse 141; Resp 20; Pulse Ox 98% on R/A; ak1 22:17 BP 136 / 77; Pulse 117; Resp 18; Pulse Ox 98% on R/A; ak1 22:32 BP 120 / 68; Pulse 158; Resp 20; Pulse Ox 100% ; aj1 23:10 BP 114 / 82; Pulse 128; Resp 18; Pulse Ox 100% on R/A; aj1 14:20 Body Mass Index 33.67 (97.52 kg, 170.18 cm) ph MDM: 14:41 Patient medically screened. [facility] 19:57 The patient was given aspirin in the Emergency Department. Data reviewed: vital signs, [facility] nurses notes, lab test result(s), radiologic studies, plain films. ED course: I discussed the patient with Dr. Yeung whom accepted admission. . 01/15 14:34 Order name: Basic Metabolic Panel; Complete Time: 15:56 [facility] 01/15 14:34 Order name: CBC with Diff; Complete Time: 15:56 [facility] 01/15 14:34 Order name: LFT's; Complete Time: 15:56 [facility] 01/15 14:34 Order name: Magnesium; Complete Time: 15:56 [facility] 01/15 14:34 Order name: NT PRO-BNP; Complete Time: 15:56 [facility] 01/15 14:34 Order name: PT-INR; Complete Time: 15:56 [facility] 01/15 14:34 Order name: Troponin (emerg Dept Use Only); Complete Time: 15:56 [facility] 01/15 14:40 Order name: Lipase; Complete Time: 15:56 [facility] 01/15 14:40 Order name: Procalcitonin; Complete Time: 15:56 [facility] 01/15 14:40 Order name: Lactate; Complete Time: 16:31 [facility] 01/15 14:40 Order name: Blood Culture Adult (2) [facility] 01/15 17:42 Order name: Troponin (emerg Dept Use Only); Complete Time: 20:38 [facility] 01/15 18:04 Order name: Urine Microscopic Only; Complete Time: 18:48 dh3 01/15 18:05 Order name: Urine Dipstick--Ancillary (enter results); Complete Time: 20:17 ms 01/15 14:34 Order name: XRAY Chest (1 view); Complete Time: 15:56 [facility] 01/15 14:41 Order name: US Abdomen Limited; Complete Time: 17:40 [facility] 01/15 16:14 Order name: Chest Abdomen Pelvis W Cont; Complete Time: 17:18 [facility] 01/15 17:41 Order name: CT Abd/Pelvis - Without Cont; Complete Time: 19:56 [facility] 01/15 22:54 Order name: Hemoglobin [facility] 01/15 22:54 Order name: Hematocrit [facility] 01/15 23:21 Order name: Hemoglobin; Complete Time: 08:47 EDMT 01/15 23:21 Order name: Hematocrit; Complete Time: 08:47 EDMS 01/16 05:45 Order name: Troponin I; Complete Time: 08:47 EDMT 01/16 06:54 Order name: CBC with Automated Diff; Complete Time: 08:47 EDMS 01/16 07:25 Order name: Basic Metabolic Panel; Complete Time: 08:47 EDMS 01/16 07:25 Order name: Troponin I; Complete Time: 08:47 EDMS 01/16 07:25 Order name: Lipid Profile; Complete Time: 08:47 EDMT 01/15 14:34 Order name: EKG; Complete Time: 14:34 [facility] 01/15 14:34 Order name: Cardiac monitoring; Complete Time: 14:58 [facility] 01/15 14:34 Order name: EKG - Nurse/Tech; Complete Time: 15:44 [facility] 01/15 14:34 Order name: IV Saline Lock; Complete Time: 14:58 [facility] 01/15 14:34 Order name: Labs collected and sent; Complete Time: 14:58 [facility] 01/15 14:34 Order name: O2 Per Protocol; Complete Time: 14:58 [facility] 01/15 14:34 Order name: O2 Sat Monitoring; Complete Time: 14:58 [facility] 01/15 18:49 Order name: EKG - Nurse/Tech; Complete Time: 19:03 [facility] 01/16 14:24 Order name: NM EDMT Administered Medications: 16:30 Drug: NS 0.9% 1000 ml Route: IV; Rate: 1 bolus; Site: left upper arm; aj1 20:30 Follow up: IV Status: Completed infusion; IV Intake: 1000ml aj1 17:22 Drug: morphine 4 mg Route: IVP; Site: left upper arm; ch 19:36 Follow up: Response: No adverse reaction aj1 19:36 Follow up: Response: Pain is decreased aj1 17:22 Drug: Zofran 4 mg Route: IVP; Site: left upper arm; ch 19:37 Follow up: Response: No adverse reaction aj1 17:42 CANCELLED (will evaluate ct first): Aspirin Chewable Tablet 324 mg PO once; 81 mg jmm tablets x 4 20:56 Drug: Aspirin Chewable Tablet 324 mg Route: PO; aj1 22:00 Follow up: Response: No adverse reaction aj1 20:56 Drug: Lovenox 1 mg/kg Route: Sub-Q; Site: left lower abdomen; aj1 22:00 Follow up: Response: No adverse reaction aj1 20:57 Drug: Zofran 4 mg Route: IVP; Site: left upper arm; aj1 22:00 Follow up: Response: No adverse reaction aj1 22:26 Drug: Lopressor 25 mg Route: PO; ak1 23:15 Follow up: Response: No adverse reaction; No change in condition aj1 23:00 Drug: Zofran 4 mg Route: IVP; Site: left upper arm; aj1 01/16 00:06 Follow up: Response: No adverse reaction aj1 Disposition: 01/17 06:18 Co-signature as Attending Physician, Vidal Espinal MD I agree with the assessment and aminata plan of care. Disposition: 01/15/19 19:58 Hospitalization ordered by Jonathon Yeung for Observation. Preliminary diagnosis is Non-ST elevation (NSTEMI) myocardial infarction. - Bed requested for [facility] ER HOLD. - Status is Observation. hj - Condition is Stable. - Problem is new. - Symptoms have improved. UTI on Admission? Yes Signatures: Dispatcher [employer] EDMT Lisbeth Crawford, RN Lorrie Rice ch RN RN aj1 Aurora Rowe RN Vidal Leyva MD MD cha Mickail, Joel, PA PA jmm Krenek, Amber RN RN ak1 Iman May RN Sunny Ramon ph, RN Vidal Villaseñor PA PA cp Botello, Elizabeth eb Corrections: (The following items were deleted from the chart) 01/15 14:54 14:41 Chest Abdomen Pelvis W Con+CT.RAD.BRZ ordered. EDMT EDMS 16:14 14:46 Abdomen Pelvis W Con+CT.RAD.BRZ ordered. EDMT EDMS 16:25 14:46 Chest For PE Angio+CT.RAD.BRZ ordered. [facility] EDMS 17:42 17:27 Aspirin Chewable Tablet 324 mg PO once; 81 mg tablets x 4 ordered. [facility] 21:03 19:58 Hospitalization Ordered by Jonathon Yeung MD for Observation. Preliminary diagnosis is Non-ST elevation (NSTEMI) myocardial infarction. Bed requested for Telemetry/MedSurg (observation). Status is Observation. Condition is Stable. Problem is new. Symptoms have improved. UTI on Admission? Yes. jmm 01/16 00:51 01/15 21:03 01/15/2019 19:58 Hospitalization Ordered by Jonathon Yeung MD for dw Observation. Preliminary diagnosis is Non-ST elevation (NSTEMI) myocardial infarction. Bed requested for Telemetry/MedSurg (observation). Status is Observation. Condition is Stable. Problem is new. Symptoms have improved. UTI on Admission? Yes. dw 01/16 01:58 00:51 01/15/2019 19:58 Hospitalization Ordered by Jonathon Yeung MD for Observation. eb Preliminary diagnosis is Non-ST elevation (NSTEMI) myocardial infarction. Bed requested for [facility] ER HOLD. Status is Observation. Condition is Stable. Problem is new. Symptoms have improved. UTI on Admission? Yes. dw 16:07 01:58 01/15/2019 19:58 Hospitalization Ordered by Jonathon Yeung MD for Observation. hj Preliminary diagnosis is Non-ST elevation (NSTEMI) myocardial infarction. Bed requested for [facility] ER HOLD. Status is Observation. Condition is Stable. Problem is new. Symptoms have improved. UTI on Admission? Yes. eb
[2019-01-15 20:08] LABS: Urine Blood NEGATIVE (NEG); Urine Glucose NEGATIVE (NEG); Urine Protein 1+ (NEG)
[2019-01-15] MEDS ORDERED: ASPIRIN 81 MG CHEWABLE TABLET ONE (20:46)
[2019-01-15] MEDS ORDERED: ENOXAPARIN 100 MG/ML SYR SQ ONE (20:46)
[2019-01-15] MEDS ORDERED: SODIUM CHLORIDE 0.9% 10ML INJ IV PRN (20:47)
[2019-01-15] MEDS ORDERED: ONDANSETRON 4 MG/2 ML VIAL ONE ×2 (20:53→23:04)
--- NOTE | 2019-01-15 21:03 | P.HP ---
Certification for Inpatient Patient admitted to: Inpatient With expected LOS: >2 Midnights Practitioner: I am a practitioner with admitting privileges, knowledge of patient current condition, hospital course, and medical plan of care. Services: Services provided to patient in accordance with Admission requirements found in Title 42 Section 412.3 of the Code of Federal Regulations Patient History Date of Service: 01/15/19 Reason for admission: NSTEMI History of Present Illness: Ms Spring is a 63 years old woman with history of breast cancer, HTN and dyslipidemia, who was admitted to the hospital in 11/26 due to chest pain and SOB. She had an ECHO which was basically unremarkable, normal cardiac enzymes, no changes on EKG. She was evaluated by cardiology team, it was recommended a stress test, but it was not done. About 4 days ago, she start with epigastric pain. She went to [facility] and was diagnosed with enteritis. She was started on oral antibiotics. Today, she also start feeling chest pain. She describe a sharp pain, on left chest wall, no radiating, comes and go, lasting for 3 seconds, associated with SOB. She denied nausea or vomiting, sweating episodes. EKG shows nor acute ST-T changes, however, trop I was elevated 0.1. Subsequent trop I was 0.09. At my encounter the patient was pain free. CT chest/ abd/pelvis was remarkable for left base infiltrate consistent with possible pneumonia and left pleural effusion, however, the patient has no respiratory symptoms consistent with pneumonia. Also report small amount of ascites and possible bone mets. Allergies No Known Allergies Allergy (Verified 11/21/18 02:52) Home medications list reviewed: Yes Home Medications: Zolpidem Tartrate [Ambien*] 10 mg PO BEDTIME PRN PRN 08/18/16 Metoprolol Tartrate [Lopressor*] 25 mg PO DAILY 11/21/18 Vit D3/Folic Acid/B2/B6/B12 [Folgard Tablet] 1 each PO DAILY 11/21/18 - Past Medical/Surgical History Diabetic: No -: Thyroid disease -: Breast cancer -: hypertension -: Insomnia -: Dyslipidemia -: Lumpectomy -: Thyroidectomy - Family History Brother -: Hypertension Sister -: Hypertension - Social History Smoking Status: Never smoker Alcohol use: No CD- Drugs: No Caffeine use: Yes Place of Residence: Home Review of Systems 10-point ROS is otherwise unremarkable Physical Examination - Physical Exam General: Alert, In no apparent distress HEENT: Atraumatic, PERRLA, Mucous membr. moist/pink, EOMI, Sclerae nonicteric Neck: Supple, 2+ carotid pulse no bruit, No LAD, Without JVD or thyroid abnormality Respiratory: Clear to auscultation bilaterally, Normal air movement Cardiovascular: Regular rate/rhythm, Normal S1 S2 Gastrointestinal: Normal bowel sounds, No tenderness Musculoskeletal: No tenderness Integumentary: No rashes Neurological: Normal speech, Normal strength at 5/5 x4 extr, Normal tone, Normal affect Lymphatics: No axilla or inguinal lymphadenopathy - Studies Laboratory Data (last 24 hrs) 01/15/19 14:31: Lipase 65 L 01/15/19 14:31: PT 14.9 H, INR 1.27 01/15/19 14:31: WBC 6.0, Hgb 10.6 L, Hct 31.4 L, Plt Count 266 01/15/19 14:31: Sodium 139, Potassium 3.4 L, BUN 10, Creatinine 1.48 H, Glucose 152 H, Magnesium 2.1, Total Bilirubin 0.6, AST 14 L, ALT 9 L, Alkaline Phosphatase 44 L Assessment and Plan - Problems (Diagnosis) (1) NSTEMI (non-ST elevated myocardial infarction) Current Visit: Yes Status: Acute (2) Enteritis Current Visit: Yes Status: Acute (3) Breast cancer Onset Date: 11/21/18 Current Visit: No Status: Acute Qualifiers: Breast location: unspecified site of breast Estrogen receptor status: unspecified Patient sex: female Laterality: unspecified laterality Qualified Code(s): C50.919 - Malignant neoplasm of unspecified site of unspecified female breast (4) Hypertension Onset Date: 11/21/18 Current Visit: No Status: Acute Qualifiers: Hypertension type: essential hypertension Qualified Code(s): I10 - Essential (primary) hypertension (5) Pleural effusion, left Onset Date: 08/18/16 Current Visit: No Status: Acute - Plan Will admit the patient due to chest pain, she has no EKG changes but elevated troponin I. Will assume as a NSTEMI, will start ASA, Full dose lovenox, Statins , beta blockers. She has a recent ECHO already. Consult Cardiology team. Also start empiric antibiotics for enteritis. - Advance Directives Does patient have a Living Will: No Does patient have a Durable POA for Healthcare: No - Code Status/Comfort Care Code Status Assessed: Yes Code Status: Full Code
[2019-01-15] MEDS ORDERED: METOPROLOL TAR 25 MG TAB ONE (22:36)
[2019-01-16] MEDS ORDERED: ZOLPIDEM TARTRATE 10 MG TABLET PO PRN ×2 (00:47→05:52)
[2019-01-16] MEDS ORDERED: ZOLPIDEM TARTRATE 5 MG TABLET ONE (01:02)
[2019-01-16] MEDS ORDERED: ATORVASTATIN 80 MG TAB PO SCH ×2 (05:52→21:00)
[2019-01-16] MEDS: METRONIDAZOLE 500mg IVPB 500 MG/100 ML BAG IV SCH ×2 (05:52→08:07)
[2019-01-16] MEDS ORDERED: ENOXAPARIN 100 MG/ML SYR SQ SCH (05:52)
[2019-01-16 06:49] LABS: Absolute Lymphocytes (CBC) 1.1 K/uL (0.7-4.9); Absolute Monocytes 0.3 K/uL (0.1-1.3); Absolute Neutrophil 3.9 K/uL (1.8-8.0); Basophils % 1.1 % (0-1.3); Eosinophils % 1.6 % (0-4.4); Hematocrit 31.5 % (36.0-45.0); Lymphocytes % 19.6 % (15.3-44.8); MPV 6.7 fL (7.6-11.3); Monocytes % 6.3 % (3.3-12.3)
[2019-01-16 07:24] LABS: Potassium 3.8 mmol/L (3.5-5.1); Troponin I 0.06 ng/mL (0.0-0.045)
[2019-01-16] MEDS: ENOXAPARIN 100 MG/ML SYR SQ SCH ×2 (08:26→09:00)
[2019-01-16] MEDS ORDERED: METOPROLOL TAR 25 MG TAB ONE (08:29)
[2019-01-16] MEDS ORDERED: ASPIRIN 81 MG CHEWABLE TABLET ONE (08:29)
[2019-01-16] MEDS ORDERED: CIPROFLOXACIN 400mg IV 400 MG/200 ML BAG IV ONE (08:30)
[2019-01-16] MEDS ORDERED: PANTOPRAZOLE 40 MG INJ ONE (08:30)
[2019-01-16] MEDS ORDERED: ENOXAPARIN 100 MG/ML SYR SQ ONE (08:30)
--- NOTE | 2019-01-16 08:34 | EKG ---
Test Date: 2019-01-15 Test Time: 20:52:53 Histotechnician: LUDA MEASUREMENT RESULTS: Intervals: Rate: 141 SC: 122 QRSD: 74 QT: 302 QTc: 462 [place]: P: 30 SC: 122 QRS: 60 T: 14 INTERPRETIVE STATEMENTS: Sinus tachycardia Otherwise normal ECG Compared to ECG 01/15/2019 17:58:56 Sinus rhythm no longer present T-wave abnormality no longer present Electronically Signed On 01-16-19 08:33:35 CDT by Jean-Paul Calderon
--- NOTE | 2019-01-16 08:35 | EKG ---
Test Date: 2019-01-15 Test Time: 17:58:56 Edger Technician: DOUGLAS MEASUREMENT RESULTS: Intervals: Rate: 98 FL: 146 QRSD: 76 QT: 338 QTc: 431 [place]: P: 26 FL: 146 QRS: 54 T: -8 INTERPRETIVE STATEMENTS: Normal sinus rhythm Non specific T wave abnormality Abnormal ECG Compared to ECG 11/20/2018 17:02:53 T-wave abnormality now present Electronically Signed On 01-16-19 08:35:36 CDT by Jean-Paul Calderon
--- NOTE | 2019-01-16 08:38 | EKG ---
Test Date: 2019-01-15 Test Time: 16:15:13 Photo Colorer: DOUGLAS MEASUREMENT RESULTS: Intervals: Rate: 97 RI: 144 QRSD: 78 QT: 372 QTc: 472 [place]: P: 46 RI: 144 QRS: 61 T: 39 INTERPRETIVE STATEMENTS: Normal sinus rhythm Normal ECG Compared to ECG 11/20/2018 17:02:53 No significant changes Electronically Signed On 01-16-19 08:37:31 CDT by Jean-Paul Calderon
[2019-01-16] MEDS ORDERED: ASPIRIN EC 81 MG TAB PO SCH (09:00)
[2019-01-16] MEDS ORDERED: PANTOPRAZOLE 40 MG INJ IVP SCH (09:00)
[2019-01-16] MEDS ORDERED: METOPROLOL TAR 25 MG TAB PO SCH (09:00)
[2019-01-16] MEDS ORDERED: CIPROFLOXACIN 400mg IV 400 MG/200 ML BAG IV SCH (09:00)
[2019-01-16] MEDS ORDERED: ONDANSETRON 4 MG/2 ML VIAL IV PRN (11:44)
[2019-01-16] MEDS ORDERED: ONDANSETRON 4 MG/2 ML VIAL ONE (11:58)
--- NOTE | 2019-01-16 12:00 | CON ---
Chief Complaint: Chest pain. History Of Present Illness: Mrs. Spring has been having chest pain off and on. It is in left of the sternum, just about the left sternal border, one location, nonradiating, does not seem to be related to exertion, body position, deep breath, or anything else. It has been fairly constant. Since she h as been in the hospital, her troponins are elevated. They are all virtually the same over an almost 24-hour period, 230 in the afternoon yesterday until this morning; they are all 0.10, 0.09, 0.06. Th e patient has never had myocardial infarction or stroke. She had breast cancer treated with lumpecto my, adjuvant chemotherapy, anastrozole, and later developed metastatic breast cancer with a malignant pleural effusion, I believe it was on the right, and she is on other chemotherapy now, and I think t he oncologists would have to tell us what her overall prognosis is from the breast cancer. The newes t agent is abemaciclib or Verzenio 150 b.i.d. She has underlying hypertension, and she takes zolpide m, metoprolol, vitamin D, Protonix, and Verzenio. She uses no tobacco. Never had myocardial infarct ion or stroke. In November of this year, she came in with a similar presentation. We ordered a stres s test, it was not ever accomplished, not sure the reason why. I think it was scheduled as an outpat ient, and she failed to follow through. She is in the hospital now, and I think it is a good time fo r us to do a stress test and see. Her electrocardiogram would not indicate an acute coronary syndrom e, it shows sinus tachycardia; otherwise, it is normal. The troponins be what they are, would make barbie valdivia most concerned that it could be from pericardial involvement or myocardial involvement, or just the pleural effusion with malignant cells, and that could make this level of troponin go up. A chest CT indicates there is an abnormality in the chest, and the CT of the abdomen reveals mild ascites in th e abdomen, degenerative changes in the lower lumbar skeleton raise the possibility of bony metastases , and she has a left pleural effusion consistent with her history of malignant pleural effusion. I would recommend we do an echocardiogram and pharmacologic nuclear stress test to see if we can help her. In spite of the troponins being what they are, I really doubt she has an acute coronary syndro me. I would not label this as non-ST elevation AR as was done in the emergency room. LISA/COLTEN Voice ID: [id number] Report ID: [id number]
[2019-01-16] MEDS ORDERED: REGADENOSON 0.4 MG/5 ML SYR IV ONE (12:18)
--- NOTE | 2019-01-16 14:23 | RAD REPORT ---
EXAM DESCRIPTION: NM - Rest Stress Cardiac Imaging - 01/16/2019 2:16 pm CLINICAL HISTORY: CP Chest pain. COMPARISON: No comparisons TECHNIQUE: The patient was administered approximately 10mCi of Tc 99m Sestamibi prior to resting SPE CT imaging of the heart. The patient was then administered approximately 30 mCi of Tc 99m Sestamibi f ollowing exercise or pharmacologic stress. Multiplanar SPECT images were reviewed. FINDINGS: No stress induced ischemic defect is seen to suggest stress induced ischemia. No fixed def ect is seen to suggest hibernating myocardium or scarred myocardium. The end diastolic volume is 73 ml, the end systolic volume is 36 ml, and the ejection fraction is 51 %. IMPRESSION: No stress induced ischemia.
--- NOTE | 2019-01-16 14:35 | P.SSS ---
Patient History Date of Service: 01/16/19 Reason for admission: NSTEMI History of Present Illness: Ms Spring is a 63 years old woman with history of breast cancer, HTN and dyslipidemia, who was admitted to the hospital in 11/26 due to chest pain and SOB. She had an ECHO which was basically unremarkable, normal cardiac enzymes, no changes on EKG. She was evaluated by cardiology team, it was recommended a stress test, but it was not done. About 4 days ago, she start with epigastric pain. She went to [facility] and was diagnosed with enteritis. She was started on oral antibiotics. Today, she also start feeling chest pain. She describe a sharp pain, on left chest wall, no radiating, comes and go, lasting for 3 seconds, associated with SOB. She denied nausea or vomiting, sweating episodes. EKG shows nor acute ST-T changes, however, trop I was elevated 0.1. Subsequent trop I was 0.09. At my encounter the patient was pain free. CT chest/ abd/pelvis was remarkable for left base infiltrate consistent with possible pneumonia and left pleural effusion, however, the patient has no respiratory symptoms consistent with pneumonia. Also report small amount of ascites and possible bone mets. Allergies No Known Allergies Allergy (Verified 11/21/18 02:52) Home Medications: Zolpidem Tartrate [Ambien*] 10 mg PO BEDTIME PRN PRN 08/18/16 Metoprolol Tartrate [Lopressor*] 25 mg PO DAILY 11/21/18 Vit D3/Folic Acid/B2/B6/B12 [Folgard Tablet] 1 each PO DAILY 11/21/18 Abemaciclib [Verzenio] 150 mg PO BID 01/16/19 Pantoprazole [Protonix Tab*] 40 mg PO DAILY 01/16/19 - Past Medical/Surgical History Has patient received pneumonia vaccine in the past: Yes Diabetic: No -: Thyroid disease -: Breast cancer -: hypertension -: Insomnia -: Dyslipidemia -: Lumpectomy -: Thyroidectomy - Family History Brother -: Hypertension Sister -: Hypertension - Social History Smoking Status: Never smoker Alcohol use: No CD- Drugs: No Caffeine use: Yes Place of Residence: Home Review of Systems 10-point ROS is otherwise unremarkable Physical Examination - Vital Signs Temperature: 97.8 F Blood Pressure: 95/74 Pulse: 89 Respirations: 17 Pulse Ox (%): 98 - Physical Exam General: Alert, In no apparent distress HEENT: Atraumatic, PERRLA, Mucous membr. moist/pink, EOMI, Sclerae nonicteric Neck: Supple, 2+ carotid pulse no bruit, No LAD, Without JVD or thyroid abnormality Respiratory: Clear to auscultation bilaterally, Normal air movement Cardiovascular: Regular rate/rhythm, Normal S1 S2 Gastrointestinal: Normal bowel sounds, No tenderness Musculoskeletal: No tenderness Integumentary: No rashes Neurological: Normal gait, Normal speech, Normal strength at 5/5 x4 extr, Normal tone, Normal affect Lymphatics: No axilla or inguinal lymphadenopathy - Studies Laboratory Data (last 24 hrs) 01/15/19 14:31: Lipase 65 L 01/15/19 14:31: PT 14.9 H, INR 1.27 01/15/19 14:31: WBC 6.0, Hgb 10.6 L, Hct 31.4 L, Plt Count 266 01/15/19 14:31: Sodium 139, Potassium 3.4 L, BUN 10, Creatinine 1.48 H, Glucose 152 H, Magnesium 2.1, Total Bilirubin 0.6, AST 14 L, ALT 9 L, Alkaline Phosphatase 44 L - Diagnosis (Problem(s)) (1) Enteritis Current Visit: Yes Status: Acute (2) Breast cancer Onset Date: 11/21/18 Current Visit: No Status: Chronic Qualifiers: Breast location: unspecified site of breast Estrogen receptor status: unspecified Patient sex: female Laterality: unspecified laterality Qualified Code(s): C50.919 - Malignant neoplasm of unspecified site of unspecified female breast (3) Hypertension Onset Date: 11/21/18 Current Visit: No Status: Chronic Qualifiers: Hypertension type: essential hypertension Qualified Code(s): I10 - Essential (primary) hypertension (4) Hypothyroidism Current Visit: No Status: Chronic Qualifiers: Hypothyroidism type: acquired Qualified Code(s): E03.9 - Hypothyroidism, unspecified (5) Malignant pleural effusion Current Visit: No Status: Chronic Treatment Summary: Overall during the hospital stay patient remained stable Patient was initially admitted to the hospital for intermittent chest pain with elevated troponins and negative EKG. Cardiology was consulted. Who ordered echocardiogram and stress test. Cardiology disease the patient's troponin are falsely positive and patient does not have non ST elevation MT or coronary artery disease. Patient's echocardiogram done couple of months ago was negative for any acute abnormality. Stress test done here in the hospital was also negative for any acute coronary artery syndrome. Patient's chest pain intermittent in the epigastric area was most likely secondary to gastritis. Patient's pain in the shoulder area is most likely secondary to her metastatic breast cancer. Patient at that time was discharged home and was asked to follow up with primary care provider along with baffle mounter and outcomes analyst. Patient was also asked to resume taking her antibiotics that she was prescribed for her enteritis at this [facility]. Patient demonstrated understanding and thus was discharged home under stable condition. - Disposition Disposition: ROUTINE DISCHARGE Condition: GOOD Diet: Regular Activity: Ad martina
--- NOTE | 2019-01-16 15:41 | ECHO ---
HEIGHT: 5 ft 7 in WEIGHT: 215 lb 0 oz DATE OF STUDY: 01/16/[address]: Jean-Paul Calderon MD 2-DIMENSIONAL: YES M.MODE: YES DOPPLER: YES COLOR FLOW: YES TDS: PORTABLE: YES DEFINITY: BUBBLE STUDY: DIAGNOSIS: RULE OUT MAGLIGNANT PERICARDIAL EFFUSION CARDIAC HISTORY: CATHERIZATION: NO SURGERY: NO PROSTHETIC VALVE: NO PACEMAKER: NO MEASUREMENTS (cm) DIASTOLIC (NORMALS) SYSTOLIC (NORMALS) IVSd 1.0 (0.6-1.2) LA Diam 3.5 (1.9-4.0) LVEF 51% LVIDd 3.5 (3.5-5.7) LVIDs 2.7 (2.0-3.5) %FS 25% LVPWd 1.1 (0.6-1.2) Ao Diam 2.8 (2.0-3.7) 2 DIMENSIONAL ASSESSMENT: RIGHT ATRIUM: NORMAL LEFT ATRIUM: NORMAL RIGHT VENTRICLE: NORMAL LEFT VENTRICLE: NORMAL TRICUSPID VALVE: NORMAL MITRAL VALVE: NORMAL PULMONIC VALVE: NORMAL AORTIC VALVE: NORMAL PERICARDIAL EFFUSION: NONE AORTIC ROOT: NORMAL LEFT VENTRICULAR WALL MOTION: NORMAL DOPPLER/COLOR FLOW: NORMAL COMMENTS: NORMAL 2-DIMENSIONAL ECHOCARDIOGRAM WITH DOPPLER. TECHNOLOGIST: KATE BREEN
--- NOTE | 2019-01-16 15:47 | TREADPHA ---
DX: CHEST PAIN Date of Study: 01/16/2019 Ht: 5 7 Wt: 215 lb 0 oz Consulting Physician: MIKEY MEDICATIONS: ASPIRIN, LIPITOR, CIPRO, LOVENOX, LOPRESSOR, FLAGYL, PROTONIX HISTORY: 63 YEAR OLD FEMALE WITH COMPLAINTS OF CHEST PAIN. HISTORY OF HYPERTENSION, HYPERLIPIDEMIA, BREAST CANCER EIGHT YEARS AGO, RIGHT LUMPECTOMY. PHYSICIAL EXAMINATION: RESTING B.P.: 118/82 RESTING H.R.: 90 RESTING EKG: NORMAL PROTOCOL: LEXISCAN EXERCISE TIME: 3:30 B.P. AT PEAK STRESS: 117/83 IMPRESSION: LEXISCAN INJECTED, CARDIOLITE INJECTED PER PROTOCOL. SEE NUCLEAR MEDICINE REPORT. NO SUPRAVENTRICULAR TACHYCARDIA. NO VENTRICULAR TACHYCARDIA. NO PREMATURE VENTRICULAR COMPLEXES. DENIED CHEST PAIN. NON-DIAGNOSTIC ELECTROCARDIOGRAM WITH LEXISCAN STRESS.
[2019-01-17] MEDS ORDERED: PANTOPRAZOLE 40MG TABLET PO SCH (09:00)
== END 2019-01-16 16:11 | disposition home or self-care (01) ==
LOC: ER 14:04 → INTOOBSV 20:41 → ERHOLD 20:41
PROVIDERS: ADMIT Internal Medicine; ATTEND Internal Medicine
DX: K52.9 Noninfective gastroenteritis and colitis, unspecified (principal); R07.9 Chest pain, unspecified; I10 Essential (primary) hypertension; E78.5 Hyperlipidemia, unspecified; E03.9 Hypothyroidism, unspecified; Z85.3 Personal history of malignant neoplasm of breast; J91.0 Malignant pleural effusion
CPT/HCPCS: 96361; 93005 ×3; 93017; 93306; 87040 ×2; 85025 ×2; 80048 ×2; 36415; 83735; 85610; 80061; 80076; 83605; 85018; 85014; 84484 ×4; 83690; 84145; 83880; 71260; 74176; 74177; 71045; 76705; 78452; 96375; 96372; 96374; 99285; Q9967; C9113; J1650 ×2; J2785; J2405 ×3; J0744; A9500; G0378 ×2; 81003; 81015

== ENCOUNTER 2019-01-19 13:56 | Inpatient (IN) | payer OTHER ==
--- OUTSIDE RECORDS SUMMARY | 2019-01-19 14:02 | XMS REPORT | Clinical Summary ---
:1955 Author Organization [facility] Address [address] [place] [address] Care Team Providers Name Role Phone Michelle [...] INFLUENZA VACCINE 06/08/2018 Results Not on fileafter 01/18/2018 Insurance Payer Benefit Plan / Group Subscriber ID Type Phone Address MEDICARE MEDICARE PART A AND B xxxxxxxxxx Medicare [place], [place] MEDICAID MEDICAID xxxxxxxxx Medicaid Advance Directives Patient has advance care planning documents on file. For more information, please contact:Don Sam[address] [place] [address]
--- NOTE | 2019-01-19 15:31 | RAD REPORT ---
EXAM DESCRIPTION: US - Abdomen Exam Limited - 01/19/2019 3:22 pm CLINICAL HISTORY: ABD PAIN COMPARISON: Abdomen Exam Limited dated 01/15/2019; Abdomen Pelvis Wo Contrast dated 01/15/2019; Ches t Abdomen Pelvis W Cont dated 01/15/2019 FINDINGS: The gallbladder demonstrates no gallstones. No pericholecystic fluid or gallbladder wall t hickening. The common bile duct is normal measuring 3 mm. Mild ascites is present. IMPRESSION: Negative gallbladder findings.
--- NOTE | 2019-01-19 15:34 | RAD REPORT ---
EXAM DESCRIPTION: RAD - Chest Single View - 01/19/2019 3:03 pm CLINICAL HISTORY: CHEST PAIN Chest pain. COMPARISON: Chest Single View dated 01/15/2019; Chest Single View dated 11/20/2018; Chest Pa And Lat ( 2 Views) dated 01/11/2018; Chest Single View dated 08/21/2016 FINDINGS: Portable technique limits examination quality. The lungs are grossly clear. Small left pleural effusion present. Heart is mildly prominent size. IMPRESSION: Stable chest since 01/15/2019
--- NOTE | 2019-01-19 16:20 | EDPHYS ---
Physician Documentation [facility] Name: Angie Spring Age: 63 yrs Sex: Female : 1955 Arrival Date: 01/19/2019 Time: 13:59 Bed 18 Private MD: ED Physician Vidal Espinal HPI: 01/19 14:41 This 63 yrs old Black Female presents to ER via Wheelchair with complaints of Chest aminata Pain. 14:41 The patient or guardian reports chest pain that is located primarily in the substernal aminata area, epigastric area, anterior chest wall. Onset: 2 day(s) ago. The pain does not radiate. Associated signs and symptoms: Pertinent positives: abdominal pain, nausea, vomiting. The chest pain is described as a pressure. Severity of pain: At its worst the pain was mild moderate in the emergency department the pain is unchanged. The patient has experienced similar episodes in the past, a few times. Historical: - Allergies: 14:17 No Known Allergies; ph - PMHx: 14:17 breast cancer; fluid around lungs; Hypertension; lymphedema; ph - Immunization history:: Adult Immunizations up to date. - Social history:: Smoking status: Patient/guardian denies using tobacco. - Ebola Screening: : Patient denies travel to an Ebola-affected area in the 21 days before illness onset. ROS: 14:43 Constitutional: Negative for fever, chills, and weight loss, Eyes: Negative for injury, aminata pain, redness, and discharge, ENT: Negative for injury, pain, and discharge, Neck: Negative for injury, pain, and swelling, Respiratory: Negative for shortness of breath, cough, wheezing, and pleuritic chest pain, Back: Negative for injury and pain, : Negative for injury, bleeding, discharge, and swelling, MS/Extremity: Negative for injury and deformity, Skin: Negative for injury, rash, and discoloration, Neuro: Negative for headache, weakness, numbness, tingling, and seizure, Psych: Negative for depression, anxiety, suicide ideation, homicidal ideation, and hallucinations, Allergy/Immunology: Negative for hives, rash, and allergies, Endocrine: Negative for neck swelling, polydipsia, polyuria, polyphagia, and marked weight changes, Hematologic/Lymphatic: Negative for swollen nodes, abnormal bleeding, and unusual bruising. 14:43 Cardiovascular: Positive for chest pain. 14:43 Abdomen/GI: Positive for abdominal pain, nausea and vomiting, abdominal distension, of the right upper quadrant, left upper quadrant, right lower quadrant and left lower quadrant. Exam: 14:43 Constitutional: This is a well developed, well nourished patient who is awake, alert, aminata and in no acute distress. Head/Face: Normocephalic, atraumatic. Eyes: Pupils equal round and reactive to light, extra-ocular motions intact. Lids and lashes normal. Conjunctiva and sclera are non-icteric and not injected. Cornea within normal limits. Periorbital areas with no swelling, redness, or edema. ENT: Nares patent. No nasal discharge, no septal abnormalities noted. Tympanic membranes are normal and external auditory canals are clear. Oropharynx with no redness, swelling, or masses, exudates, or evidence of obstruction, uvula midline. Mucous membranes moist. Neck: Trachea midline, no thyromegaly or masses palpated, and no cervical lymphadenopathy. Supple, full range of motion without nuchal rigidity, or vertebral point tenderness. No Meningismus. Chest/axilla: Normal chest wall appearance and motion. Nontender with no deformity. No lesions are appreciated. Respiratory: Lungs have equal breath sounds bilaterally, clear to auscultation and percussion. No rales, rhonchi or wheezes noted. No increased work of breathing, no retractions or nasal flaring. Back: No spinal tenderness. No costovertebral tenderness. Full range of motion. Female : Normal external genitalia. Skin: Warm, dry with normal turgor. Normal color with no rashes, no lesions, and no evidence of cellulitis. MS/ Extremity: Pulses equal, no cyanosis. Neurovascular intact. Full, normal range of motion. Neuro: Awake and alert, GCS 15, oriented to person, place, time, and situation. Cranial nerves II-XII grossly intact. Motor strength 5/5 in all extremities. Sensory grossly intact. Cerebellar exam normal. Normal gait. Psych: Awake, alert, with orientation to person, place and time. Behavior, mood, and affect are within normal limits. 14:43 Cardiovascular: Rate: tachycardic, Rhythm: regular, Pulses: Pulses are 4+ in bilateral radial, brachial, femoral, popliteal, posterior tibial and and dorsalis pedis arteries.. 14:43 Abdomen/GI: Inspection: distension, Bowel sounds: normal, Palpation: moderate abdominal tenderness, in all quadrants, Liver: tenderness, Hernia: not appreciated. Vital Signs: 14:15 BP 124 / 78; Pulse 140; Resp 20; Pulse Ox 100% on R/A; Weight 97.52 kg; Height 5 ft. 7 ph in. (170.18 cm); 15:45 BP 118 / 99; Pulse 118; Resp 24; Pulse Ox 99% ; aj1 16:45 BP 141 / 91; Pulse 120; Resp 18; Pulse Ox 100% on R/A; aj1 17:45 BP 134 / 95; Pulse 118; Resp 20; Pulse Ox 100% on R/A; aj1 18:45 BP 116 / 87; Pulse 92; Resp 18; Pulse Ox 100% on R/A; aj1 19:15 BP 114 / 88; Pulse 90; Resp 18; Pulse Ox 99% on R/A; jb4 20:00 BP 116 / 90; Pulse 94; Resp 16; Temp 98.3(O); Pulse Ox 100% on R/A; jb4 14:15 Body Mass Index 33.67 (97.52 kg, 170.18 cm) ph Procedures: 16:22 Peripheral line: by aseptic technique a peripheral line was placed in the left external aminata jugular vein. MDM: 14:28 Patient medically screened. [facility] 14:45 Data reviewed: vital signs, nurses notes, lab test result(s), EKG, radiologic studies, [facility] CT scan, plain films. 01/19 14:28 Order name: Basic Metabolic Panel; Complete Time: 17:43 hb 01/19 14:28 Order name: CBC with Diff; Complete Time: 16:52 hb 01/19 14:28 Order name: LFT's; Complete Time: 17:43 hb 01/19 14:28 Order name: Magnesium; Complete Time: 17:43 hb 01/19 14:28 Order name: NT PRO-BNP; Complete Time: 17:43 hb 01/19 14:28 Order name: PT-INR; Complete Time: 16:52 hb 01/19 14:28 Order name: Troponin (emerg Dept Use Only); Complete Time: 17:43 hb 01/19 14:28 Order name: XRAY Chest (1 view); Complete Time: 15:44 hb 01/19 14:41 Order name: Lipase; Complete Time: 17:43 aminata 01/19 14:41 Order name: Urine Culture aminata 01/19 14:41 Order name: TSH; Complete Time: 17:43 [facility] 01/19 15:45 Order name: AMMONIA; Complete Time: 17:43 [facility] 01/19 16:46 Order name: Urine Dipstick--Ancillary (enter results) 01/19 16:57 Order name: Urine Dipstick-Ancillary; Complete Time: 17:43 EDMS 01/19 14:28 Order name: EKG; Complete Time: 14:29 hb 01/19 14:28 Order name: Cardiac monitoring; Complete Time: 14:44 hb 01/19 14:28 Order name: EKG - Nurse/Tech; Complete Time: 14:44 hb 01/19 14:28 Order name: IV Saline Lock; Complete Time: 14:44 hb 01/19 14:28 Order name: Labs collected and sent; Complete Time: 14:44 hb 01/19 14:28 Order name: O2 Per Protocol; Complete Time: 14:44 hb 01/19 14:28 Order name: O2 Sat Monitoring; Complete Time: 14:44 hb 01/19 14:41 Order name: Urine Dipstick-Ancillary (obtain specimen); Complete Time: 16:48 aminata 01/19 14:41 Order name: CT Aorta for Dissection [facility] 01/19 14:45 Order name: US Abdomen Limited; Complete Time: 15:44 [facility] 01/19 17:58 Order name: CT; Complete Time: 18:17 EDMS Administered Medications: 17:22 Drug: Zofran 4 mg Route: IVP; Site: left jugular; aj1 19:00 Follow up: Response: No adverse reaction jb4 17:22 Drug: Lopressor (metoprolol TARTRATE) 50 mg Route: PO; aj1 19:00 Follow up: Response: No adverse reaction jb4 17:23 Drug: NS 0.9% 1000 ml Route: IV; Rate: 125 ml/hr; Site: left jugular; aj1 20:17 Follow up: Response: No adverse reaction; IV Status: Infusion continued upon admission jb4 17:23 Drug: morphine 4 mg Route: IVP; Site: left jugular; aj1 20:17 Follow up: Response: No adverse reaction; Pain is decreased jb4 18:18 Drug: Rocephin - (cefTRIAXone) 1 grams Route: IVPB; Infused Over: 30 mins; Site: left aj1 jugular; Disposition: 01/19/19 16:20 Hospitalization ordered by Napoleon Birmingham for Inpatient Admission. Preliminary diagnosis are Chest pain, unspecified, Abdominal tenderness, Tachycardia, unspecified, Unspecified kidney failure, Urinary tract infection, site not specified. - Bed requested for Telemetry/MedSurg (Inpatient). - Status is Inpatient Admission. jb4 - Condition is Fair. - Problem is new. - Symptoms have improved. UTI on Admission? Yes Signatures: Dispatcher [employer] EDMS Galina Sheffield Angela RN RN aj1 Aurora Rowe RN Vidal Leyva MD MD cha Hall, Patricia RN RN Sara Arreola, RN RN Mazin Guzman RN RN jb4 Corrections: (The following items were deleted from the chart) 16:20 16:20 Hospitalization Ordered by Napoleon Birmingham MD for Inpatient Admission. Preliminary aminata diagnosis is Chest pain, unspecified; Abdominal tenderness. Bed requested for Telemetry/MedSurg (Inpatient). Status is Inpatient Admission. Condition is Fair. Problem is new. Symptoms have improved. UTI on Admission? No. aminata 17:45 16:20 01/19/2019 16:20 Hospitalization Ordered by Napoleon Birmingham MD for Inpatient aminata Admission. Preliminary diagnosis is Chest pain, unspecified; Abdominal tenderness; Tachycardia, unspecified. Bed requested for Telemetry/MedSurg (Inpatient). Status is Inpatient Admission. Condition is Fair. Problem is new. Symptoms have improved. UTI on Admission? No. aminata 18:34 17:45 01/19/2019 16:20 Hospitalization Ordered by Napoleon Birmingham MD for Inpatient dw Admission. Preliminary diagnosis is Chest pain, unspecified; Abdominal tenderness; Tachycardia, unspecified; Unspecified kidney failure; Urinary tract infection, site not specified. Bed requested for Telemetry/MedSurg (Inpatient). Status is Inpatient Admission. Condition is Fair. Problem is new. Symptoms have improved. UTI on Admission? Yes. aminata 18:34 18:34 01/19/2019 16:20 Hospitalization Ordered by Napoleon Birmingham MD for Inpatient bd Admission. Preliminary diagnosis is Chest pain, unspecified; Abdominal tenderness; Tachycardia, unspecified; Unspecified kidney failure; Urinary tract infection, site not specified. Bed requested for Telemetry/MedSurg (Inpatient). Status is Inpatient Admission. Condition is Fair. Problem is new. Symptoms have improved. UTI on Admission? Yes. 20:18 18:34 01/19/2019 16:20 Hospitalization Ordered by Napoleon Birmingham MD for Inpatient jb4 Admission. Preliminary diagnosis is Chest pain, unspecified; Abdominal tenderness; Tachycardia, unspecified; Unspecified kidney failure; Urinary tract infection, site not specified. Bed requested for Telemetry/MedSurg (Inpatient). Status is Inpatient Admission. Condition is Fair. Problem is new. Symptoms have improved. UTI on Admission? Yes. bd
--- NOTE | 2019-01-19 16:20 | ER ---
Nurse's Notes [facility] Name: Angie Spring Age: 63 yrs Sex: Female : 1955 Arrival Date: 01/19/2019 Time: 13:59 Bed 18 Private MD: Diagnosis: Chest pain, unspecified;Abdominal tenderness;Tachycardia, unspecified;Unspecified kidney failure;Urinary tract infection, site not specified Presentation: 01/19 14:13 Presenting complaint: Patient states: Admitted last week for chest pain ,was following ph up w/ linotype worker and HR was 150, pt reports substernal chest pain, nausea, palpitations and SOB, HR 140 in triage. Transition of care: patient was not received from another setting of care. Onset of symptoms was January 19, 2019. Risk Assessment: Do you want to hurt yourself or someone else? Patient reports no desire to harm self or others. Initial Sepsis Screen: Does the patient meet any 2 criteria? No. Patient's initial sepsis screen is negative. Care prior to arrival: None. 14:13 Method Of Arrival: Wheelchair ph 14:13 Acuity: KAT 2 ph 19:18 Initial Sepsis Screen: Does the patient have a suspected source of infection? Yes: aj1 Acute abdominal pain. Historical: - Allergies: 14:17 No Known Allergies; ph - PMHx: 14:17 breast cancer; fluid around lungs; Hypertension; lymphedema; ph - Immunization history:: Adult Immunizations up to date. - Social history:: Smoking status: Patient/guardian denies using tobacco. - Ebola Screening: : Patient denies travel to an Ebola-affected area in the 21 days before illness onset. Screenin:30 Abuse screen: Denies threats or abuse. Denies injuries from another. Nutritional aj1 screening: No deficits noted. Tuberculosis screening: No symptoms or risk factors identified. 19:00 Fall Risk IV access (20 points). Mental Status- Oriented to own ability (0 pts). Total jb4 Reza Fall Scale indicates No Risk (0-24 pts). Assessment: 14:30 General: Appears in no apparent distress. uncomfortable, Behavior is calm, cooperative, aj1 appropriate for age. Pain: Complains of pain in chest and abdomen Pain does not radiate. Pain currently is 8 out of 10 on a pain scale. Pain began 5-6 days. Neuro: Level of Consciousness is awake, alert, obeys commands, Oriented to person, place, time, situation, Speech is normal, Facial symmetry appears normal. Cardiovascular: Reports chest pain, Heart tones S1 S2 present Patient's skin is warm and dry. Rhythm is sinus tachycardia Chest pain is described as Pain is 8 out of 10 on a pain scale. quality is aching is located in substernal area. Respiratory: Airway is patent Respiratory effort is even, unlabored, Respiratory pattern is regular, symmetrical, Breath sounds are diminished bilaterally. GI: Abdomen is round distended, Bowel sounds present X 4 quads. Reports lower abdominal pain, upper abdominal pain, nausea, vomiting. : No signs and/or symptoms were reported regarding the genitourinary system. EENT: No signs and/or symptoms were reported regarding the EENT system. Derm: No signs and/or symptoms reported regarding the dermatologic system. Skin is pink, warm \T\ dry. normal. Musculoskeletal: No signs and/or symptoms reported regarding the musculoskeletal system. Circulation, motion, and sensation intact. 15:14 Reassessment: Patient taken to ultrasound via stretcher. aj1 15:45 Reassessment: Patient returned to room. aj1 15:45 Reassessment: Patient appears in no apparent distress at this time. No changes from aj1 previously documented assessment. Patient and/or family updated on plan of care and expected duration. Pain level reassessed. Patient is alert, oriented x 3, equal unlabored respirations, skin warm/dry/pink. 16:34 Reassessment: Patient appears in no apparent distress at this time. No changes from aj1 previously documented assessment. Patient and/or family updated on plan of care and expected duration. Pain level reassessed. Patient is alert, oriented x 3, equal unlabored respirations, skin warm/dry/pink. 17:30 Reassessment: Patient and/or family updated on plan of care and expected duration. Pain aj1 level reassessed. General: Appears in no apparent distress. comfortable, Behavior is calm, cooperative, appropriate for age. Neuro: Level of Consciousness is awake, alert, obeys commands, Oriented to person, place, time, situation. Cardiovascular: Heart tones S1 S2 present Patient's skin is warm and dry. Rhythm is sinus tachycardia. Respiratory: Airway is patent Respiratory effort is even, unlabored, Respiratory pattern is regular, symmetrical, Breath sounds are diminished bilaterally. GI: Abdomen is round distended. Derm: Skin is pink, warm \T\ dry. normal. Musculoskeletal: No signs and/or symptoms reported regarding the musculoskeletal system. Circulation, motion, and sensation intact. 18:30 Reassessment: Patient appears in no apparent distress at this time. No changes from aj1 previously documented assessment. Patient and/or family updated on plan of care and expected duration. Pain level reassessed. Patient is alert, oriented x 3, equal unlabored respirations, skin warm/dry/pink. 19:10 Reassessment: Patient appears in no apparent distress at this time. Patient and/or jb4 family updated on plan of care and expected duration. Pain level reassessed. Patient is alert, oriented x 3, equal unlabored respirations, skin warm/dry/pink. 20:14 Reassessment: Patient appears in no apparent distress at this time. Patient and/or jb4 family updated on plan of care and expected duration. Pain level reassessed. Patient is alert, oriented x 3, equal unlabored respirations, skin warm/dry/pink. Vital Signs: 14:15 BP 124 / 78; Pulse 140; Resp 20; Pulse Ox 100% on R/A; Weight 97.52 kg; Height 5 ft. 7 ph in. (170.18 cm); 15:45 BP 118 / 99; Pulse 118; Resp 24; Pulse Ox 99% ; aj1 16:45 BP 141 / 91; Pulse 120; Resp 18; Pulse Ox 100% on R/A; aj1 17:45 BP 134 / 95; Pulse 118; Resp 20; Pulse Ox 100% on R/A; aj1 18:45 BP 116 / 87; Pulse 92; Resp 18; Pulse Ox 100% on R/A; aj1 19:15 BP 114 / 88; Pulse 90; Resp 18; Pulse Ox 99% on R/A; jb4 20:00 BP 116 / 90; Pulse 94; Resp 16; Temp 98.3(O); Pulse Ox 100% on R/A; jb4 14:15 Body Mass Index 33.67 (97.52 kg, 170.18 cm) ph ED Course: 13:59 Patient arrived in ED. tw3 14:15 Triage completed. ph 14:17 Arm band placed on. ph 14:21 EKG done, by hvac technician. reviewed by Vidal Espinal MD. sm3 14:27 Vidal Espinal MD is Attending Physician. aminata 14:30 Patient has correct armband on for positive identification. ruby on rails software developer on. Pulse aj1 ox on. NIBP on. 14:30 No provider procedures requiring assistance completed. Patient maintains SpO2 aj1 saturation greater than 95% on room air. 14:33 Lorrie Mejia, RN is Primary Nurse. aj1 15:03 XRAY Chest (1 view) In Process Unspecified. EDMS 15:05 X-ray completed. Portable x-ray completed in exam room. Patient tolerated procedure jb2 well. 15:06 Patient has correct armband on for positive identification. Placed in gown. Bed in low mh5 position. Call light in reach. Side rails up X2. Warm blanket given. ruby on rails software developer on. Pulse ox on. NIBP on. 15:23 US Abdomen Limited In Process Unspecified. EDMS 15:54 Radiology exam delayed due to lab results not completed at this time. (BUN/Creatinine). j6 16:18 Napoleon Birmingham MD is Hospitalizing Provider. [facility] 16:43 Initial lab(s) drawn, by ED staff, sent to lab. Urine collected:. Accessed [facility] 16:44 Radiology exam delayed due to lab results not completed at this time. (BUN/Creatinine). 2 16:47 Urine Dipstick--Ancillary (enter results) Sent. 5 16:47 AMMONIA Sent. 5 16:48 TSH Sent. 5 16:48 Urine Culture Sent. 5 16:48 Lipase Sent. 5 16:48 Troponin (emerg Dept Use Only) Sent. 5 16:48 LFT's Sent. 5 16:48 Magnesium Sent. 5 16:48 NT PRO-BNP Sent. 5 17:[address] via stretcher. vm2 17:34 CT completed. Patient tolerated procedure well. Patient moved back from CT. nj 20:15 Patient admitted, IV remains in place. jb4 Administered Medications: 17:22 Drug: Zofran 4 mg Route: IVP; Site: left jugular; aj1 19:00 Follow up: Response: No adverse reaction jb4 17:22 Drug: Lopressor (metoprolol TARTRATE) 50 mg Route: PO; aj1 19:00 Follow up: Response: No adverse reaction jb4 17:23 Drug: NS 0.9% 1000 ml Route: IV; Rate: 125 ml/hr; Site: left jugular; aj1 20:17 Follow up: Response: No adverse reaction; IV Status: Infusion continued upon admission jb4 17:23 Drug: morphine 4 mg Route: IVP; Site: left jugular; aj1 20:17 Follow up: Response: No adverse reaction; Pain is decreased jb4 18:18 Drug: Rocephin - (cefTRIAXone) 1 grams Route: IVPB; Infused Over: 30 mins; Site: left aj1 jugular; Outcome: 16:20 Decision to Hospitalize by Provider. aminata 20:15 Admitted to Med/surg accompanied by tech, via stretcher, room 216, with chart, Report jb4 called to SEVERIANO Langley 20:15 Condition: stable 20:15 Discharge instructions given to patient, Instructed on the need for admit, Demonstrated understanding of instructions. 20:18 Patient left the ED. jb4 Signatures: Dispatcher [employer] EDLorrie Mcdaniel RN RN audelia1 Vidal Espinal MD MD cha Buechter, Jesse jb2 Iman May, RN RN Mazin Guzman, RN RN jb4 Pranav Phoenix Maria 5 Tyshawn, Keisha pearson3 Annmarie Naylor Shakira sm3 Garcia, Jessica jg6
[2019-01-19 16:41] LABS: Absolute Lymphocytes (CBC) 1.4 K/uL (0.7-4.9); Absolute Monocytes 0.4 K/uL (0.1-1.3); Absolute Neutrophil 3.8 K/uL (1.8-8.0); Basophils % 0.6 % (0-1.3); Eosinophils % 0.8 % (0-4.4); Hematocrit 30.9 % (36.0-45.0); Lymphocytes % 24.3 % (15.3-44.8); MPV 6.5 fL (7.6-11.3); Monocytes % 7.3 % (3.3-12.3); RBC Red Blood Cell Count 3.05 M/uL (3.86-4.86)
[2019-01-19 16:42] LABS: Protime INR 1.27
[2019-01-19 16:57] LABS: Urine Blood TRACE (NEG); Urine Glucose NEGATIVE (NEG); Urine Protein 2+ (NEG); Urine Specific Gravity 1.015 (1.005-1.030)
[2019-01-19 16:59] LABS: ALT/SGPT 9 U/L (12-78); AST/SGOT 11 U/L (15-37); Albumin 2.6 g/dL (3.4-5.0); Alkaline Phosphatase 38 U/L (45-117); BUN Blood Urea Nitrogen 9 mg/dL (7-18); Bicarbonate 26 mmol/L (21-32); Bilirubin Direct 0.2 mg/dL (0-0.2); Bilirubin Total 0.5 mg/dL (0.2-1.0); Glucose Level 107 mg/dL (74-106); Magnesium 2.2 mg/dL (1.8-2.4); NT PRO-BNP 100 pg/mL (<125); Potassium 3.6 mmol/L (3.5-5.1); Sodium Level 139 mmol/L (136-145); Troponin (Emerg Dept Use Only) < 0.02 ng/mL (0.0-0.045)
[2019-01-19 17:13] LABS: Thyroid Stimulating Hormone 0.812 uIU/mL (0.360-3.740)
[2019-01-19] MEDS ORDERED: NA CHLORIDE 0.9% 1,000 ML ONE (17:20)
[2019-01-19] MEDS ORDERED: ONDANSETRON 4 MG/2 ML VIAL ONE (17:20)
[2019-01-19] MEDS ORDERED: MORPHINE 4 MG/ML SYR ONE (17:20)
[2019-01-19] MEDS ORDERED: METOPROLOL TAR 50 MG TAB ONE (17:20)
--- NOTE | 2019-01-19 17:57 | RAD REPORT ---
EXAM DESCRIPTION: CT - Chest Abdomen Pelvis W Cont - 01/19/2019 5:34 pm CLINICAL HISTORY: Chest and abdomen pain. Abdominal distention;Chest pain COMPARISON: Chest Abdomen Pelvis W Cont dated 01/15/2019 TECHNIQUE: Approximately 100 mL nonionic IV contrast was administered to the patient. All CT scans are performed using dose optimization technique as appropriate and may include automated exposure control or mA/KV adjustment according to patient size. FINDINGS: Linear opacities are present in the left lung base with a small left pleural effusion seen . Left basilar lung aeration does appear improved since the comparative study, however.Small hiatal h ernia with dilatation of the esophagus present.No intrathoracic adenopathy.Postsurgical changes a pre vious right lobectomy. Liver cirrhosis is seen with a small liver size. Spleen the pancreas, adrenal glands kidneys show no new or acute finding. Prominent small bowel loops are seen in the central abdomen in a non-organized fashion. No abscess or free air. Normal appendix. Sigmoid diverticulosis is present without diverticulitis. No pathologic l ymphadenopathy in the abdomen or pelvis. Mild ascites is present. Moderate lumbosacral degenerative changes. Areas of sclerosis again noted throughout the axial skelet on. IMPRESSION: Non-organized mildly distended small bowel loops are present in central abdomen with mil d ascites, appearing similar there to the prior study. Mild improvement in left base lung aeration since comparative study. Sclerotic axial skeleton lesions again seen, without significant change. Liver cirrhosis.
[2019-01-19] MEDS ORDERED: CEFTRIAXONE/SWI 1gm 1 GM/10 ML SYR ONE (18:25)
[2019-01-19] MEDS ORDERED: MORPHINE 4 MG/ML SYR IV PRN (22:48)
[2019-01-19] MEDS ORDERED: ACETAMINOPHEN 500 MG TAB PO PRN (22:48)
[2019-01-19] MEDS ORDERED: PANTOPRAZOLE 40 MG INJ IVP ONE (22:51)
[2019-01-19] MEDS: ALPRAZOLAM 0.25 MG TABLET PO PRN (23:41)
[2019-01-20] MEDS ORDERED: ONDANSETRON 4 MG/2 ML VIAL IV ONE (02:53)
[2019-01-20 05:09] LABS: Absolute Lymphocytes (CBC) 0.8 K/uL (0.7-4.9); Absolute Monocytes 0.6 K/uL (0.1-1.3); Absolute Neutrophil 3.6 K/uL (1.8-8.0); Basophils % 0.8 % (0-1.3); Eosinophils % 1.1 % (0-4.4); Hematocrit 33.3 % (36.0-45.0); Lymphocytes % 14.9 % (15.3-44.8); MPV 6.7 fL (7.6-11.3); Monocytes % 12.3 % (3.3-12.3); RBC Red Blood Cell Count 3.27 M/uL (3.86-4.86)
[2019-01-20 05:21] LABS: Potassium 3.9 mmol/L (3.5-5.1)
--- NOTE | 2019-01-20 05:29 | EKG ---
Test Date: 2019-01-19 Test Time: 14:17:10 Crm Developer: HETAL MEASUREMENT RESULTS: Intervals: Rate: 136 NH: 132 QRSD: 74 QT: 384 QTc: 577 Bangs: P: 59 NH: 132 QRS: 89 T: 34 INTERPRETIVE STATEMENTS: Sinus tachycardia T wave abnormality, consider inferior ischemia Abnormal ECG Compared to ECG 01/15/2019 20:52:53 T-wave abnormality now present Possible ischemia now present Electronically Signed On 01-20-19 05:28:15 CDT by Jean-Paul Calderon
[2019-01-20] MEDS: PANTOPRAZOLE 40 MG INJ IVP SCH ×2 (08:57→21:08)
[2019-01-20] MEDS: ENOXAPARIN 40 MG/0.4 ML SQ SCH (08:57)
[2019-01-20] MEDS: METOPROLOL TAR 50 MG TAB PO SCH ×2 (08:57→21:00)
[2019-01-20] MEDS: ASPIRIN EC 81 MG TAB PO SCH (08:58)
[2019-01-20] MEDS ORDERED: ASPIRIN 325 MG TAB PO SCH (09:00)
[2019-01-20] MEDS: ALPRAZOLAM 0.25 MG TABLET PO PRN (09:11)
[2019-01-20] MEDS ORDERED: INFLUENZA VACCINE (for 3y+) 0.5 ML DOSE IMVAC ONE (10:00)
[2019-01-20] MEDS: ONDANSETRON 4 MG/2 ML VIAL IV PRN ×2 (15:01→18:34)
--- NOTE | 2019-01-20 18:20 | P.PN ---
Subjective Date of Service: 01/20/19 Chief Complaint: Abdominal pain Subjective: Improving Patient seen and examined at bedside. No family at bedside. Chart reviewed and case discussed with nursing staff. States that her chest pain has improved. And her abdominal pain is also improved. No acute events noted overnight Continues to be tachycardic. Slightly tolerating clear liquids but would still like to try something more. Review of Systems 10-point ROS is otherwise unremarkable Physical Examination - Vital Signs Temperature: 97.9 F Blood Pressure: 104/60 Pulse: 99 Respirations: 16 Pulse Ox (%): 99 - Physical Exam General: Alert, In no apparent distress HEENT: Atraumatic, PERRLA, EOMI Neck: Supple, JVD not distended Respiratory: Clear to auscultation bilaterally, Normal air movement Cardiovascular: Regular rate/rhythm, Normal S1 S2 Gastrointestinal: Normal bowel sounds, Tenderness Musculoskeletal: No tenderness Integumentary: No rashes Neurological: Normal speech, Normal tone, Normal affect Assessment And Plan - Plan This is a 63-year-old female with: Abdominal pain Chest pain Nausea/vomiting Patient with a recent negative stress test and echocardiogram in 4 days ago. We will continue IV fluids. Patient would like to try more food, trial of full liquids. Discussed with patient that if unable to tolerate, back down to clear liquids. Zofran for nausea/vomiting. Chest pain has resolved at this time. Disposition: Pending symptomatic improvement. Possible discharge in the next 24-48 hr
[2019-01-20] MEDS: SODIUM CHLORIDE 0.9% 10ML INJ IV PRN (21:07)
[2019-01-21] MEDS: ZOLPIDEM TARTRATE 10 MG TABLET PO PRN ×2 (01:06→22:36)
[2019-01-21] MEDS: ENOXAPARIN 40 MG/0.4 ML SQ SCH (09:58)
[2019-01-21] MEDS: METOPROLOL TAR 50 MG TAB PO SCH ×2 (09:58→22:36)
[2019-01-21] MEDS: ASPIRIN EC 81 MG TAB PO SCH (09:58)
[2019-01-21] MEDS: PANTOPRAZOLE 40 MG INJ IVP SCH ×2 (09:59→21:06)
--- NOTE | 2019-01-21 18:11 | P.PN ---
Subjective Date of Service: 01/21/19 Chief Complaint: Abdominal pain Subjective: Improving Patient seen and examined at bedside. No family at bedside. Chart reviewed and case discussed with nursing staff. States that her chest pain has improved. And her abdominal pain is also improved. No acute events noted overnight Continues to be tachycardic. Slightly tolerating clear liquids but would still like to try something more. Review of Systems 10-point ROS is otherwise unremarkable Physical Examination - Vital Signs Temperature: 97.5 F Blood Pressure: 114/76 Pulse: 109 Respirations: 18 Pulse Ox (%): 98 - Physical Exam General: Alert, In no apparent distress, Obese HEENT: Atraumatic, PERRLA, EOMI Neck: Supple, JVD not distended Respiratory: Clear to auscultation bilaterally, Normal air movement Cardiovascular: Regular rate/rhythm, Normal S1 S2 Gastrointestinal: Normal bowel sounds, Tenderness Musculoskeletal: No tenderness Integumentary: No rashes Neurological: Normal speech, Normal tone, Normal affect Lymphatics: No axilla or inguinal lymphadenopathy Assessment And Plan - Plan This is a 63-year-old female with: Abdominal pain Chest pain Nausea/vomiting Patient with a recent negative stress test and echocardiogram in 4 days ago. We will continue IV fluids. Patient would like to try more food, trial of full liquids. Discussed with patient that if unable to tolerate, back down to clear liquids. Zofran for nausea/vomiting. Chest pain has resolved at this time. Disposition: Pending symptomatic improvement. Possible discharge in the next 24-48 hr
[2019-01-21] MEDS: SODIUM CHLORIDE 0.9% 10ML INJ IV PRN (21:08)
[2019-01-22] MEDS: ALPRAZOLAM 0.25 MG TABLET PO PRN (01:32)
[2019-01-22] MEDS: ONDANSETRON 4 MG/2 ML VIAL IV PRN (01:54)
[2019-01-22 06:40] LABS: Absolute Lymphocytes (CBC) 1.1 K/uL (0.7-4.9); Absolute Monocytes 0.5 K/uL (0.1-1.3); Basophils % 0.8 % (0-1.3); Eosinophils % 1.2 % (0-4.4); Hematocrit 30.7 % (36.0-45.0); MPV 6.5 fL (7.6-11.3); Monocytes % 8.2 % (3.3-12.3); RBC Red Blood Cell Count 3.06 M/uL (3.86-4.86)
[2019-01-22 06:58] LABS: Albumin 2.4 g/dL (3.4-5.0); Bilirubin Total 0.5 mg/dL (0.2-1.0); Potassium 3.8 mmol/L (3.5-5.1); Protein, Total 6.9 g/dL (6.4-8.2)
[2019-01-22] MEDS: PANTOPRAZOLE 40 MG INJ IVP SCH (09:59)
[2019-01-22] MEDS: ASPIRIN EC 81 MG TAB PO SCH (10:00)
[2019-01-22] MEDS: METOPROLOL TAR 50 MG TAB PO SCH (10:00)
[2019-01-22] MEDS: ENOXAPARIN 40 MG/0.4 ML SQ SCH (10:00)
--- NOTE | 2019-02-06 04:21 | P.HP ---
Certification for Inpatient Patient admitted to: Inpatient With expected LOS: >2 Midnights Patient will require the following post-hospital care: None Practitioner: I am a practitioner with admitting privileges, knowledge of patient current condition, hospital course, and medical plan of care. Services: Services provided to patient in accordance with Admission requirements found in Title 42 Section 412.3 of the Code of Federal Regulations Patient History Date of Service: 01/19/19 Reason for admission: Abdominal pain/chest pain History of Present Illness: Patient is a 63-year-old female came to the hospital with chest discomfort. Pain was mainly in the sternal region. The was no radiation. Patient came to the ER in troponin and EKG were negative. Patient be admitted to the hospital for further workup. Allergies No Known Allergies Allergy (Verified 11/21/18 02:52) Home Medications: Zolpidem Tartrate [Ambien*] 10 mg PO BEDTIME PRN PRN 08/18/16 Vit D3/Folic Acid/B2/B6/B12 [Folgard Tablet] 1 each PO DAILY 11/21/18 Abemaciclib [Verzenio] 150 mg PO BID 01/16/19 Pantoprazole [Protonix Tab*] 40 mg PO DAILY 01/16/19 Metoprolol Tartrate [Lopressor*] 50 mg PO BID #60 tab 01/22/19 Ondansetron [Zofran] 4 mg PO Q6H PRN #15 tab 01/22/19 - Past Medical/Surgical History Has patient received pneumonia vaccine in the past: Yes Diabetic: No -: Thyroid disease -: Breast cancer -: hypertension -: Insomnia -: Dyslipidemia -: Lumpectomy Rt -: Thyroidectomy - Family History Brother Medical History: Hypertension Sister Medical History: Hypertension - Social History Smoking Status: Never smoker Alcohol use: No CD- Drugs: No Caffeine use: No Place of Residence: Home Review of Systems 10-point ROS is otherwise unremarkable Physical Examination - Vital Signs Temperature: 98.7 F Blood Pressure: 94/66 Pulse: 97 Respirations: 18 Pulse Ox (%): 96 - Physical Exam General: Alert, In no apparent distress, Oriented x3 HEENT: Atraumatic, PERRLA, Mucous membr. moist/pink, EOMI, Sclerae nonicteric Neck: Supple, 2+ carotid pulse no bruit, No LAD, Without JVD or thyroid abnormality Respiratory: Clear to auscultation bilaterally, Normal air movement Cardiovascular: Regular rate/rhythm, Normal S1 S2 Gastrointestinal: Normal bowel sounds, Soft and benign, Non-distended, No tenderness Musculoskeletal: No clubbing, No swelling, No tenderness Integumentary: No rashes Neurological: Normal gait, Normal speech, Normal strength at 5/5 x4 extr, Normal tone, Sensation intact, Cranial nerves 3-12 intact, Normal affect Lymphatics: No axilla or inguinal lymphadenopathy Assessment & Plan - Problems (Diagnosis) (1) Chest pain Status: Acute (2) Abdominal pain Status: Acute (3) Enteritis Status: Acute (4) SOB (shortness of breath) Onset Date: 08/18/16 Status: Acute (5) Hypertension Onset Date: 11/21/18 Status: Chronic Qualifiers: Hypertension type: essential hypertension Qualified Code(s): I10 - Essential (primary) hypertension (6) Hypothyroidism Status: Chronic Qualifiers: Hypothyroidism type: acquired Qualified Code(s): E03.9 - Hypothyroidism, unspecified (7) Malignant pleural effusion Status: Chronic - Plan 1. Serial troponins and EKG 2. Cardiology consultation 3. Echocardiogram and may need stress test to further evaluate 4. Anti-platelet therapy, anti coagulation, beta-byron, statin, and O2 as needed 5. IV morphine for pain 6. Nitro p.r.n. Discharge Plan: Home Plan to discharge in: Greater than 2 days - Advance Directives Does patient have a Living Will: No Does patient have a Durable POA for Healthcare: No - Code Status/Comfort Care Code Status Assessed: Yes Code Status: Full Code Critical Care: No Time Spent Managing PTS Care (In Minutes): 45
--- NOTE | 2019-02-08 16:45 | P.DS ---
Admission Date: 01/21/19 Discharge Date: 01/22/19 Disposition: ROUTINE DISCHARGE Discharge Condition: GOOD Reason for Admission: Abdominal pain Hospital Course: Patient admitted for Abdominal pain Chest pain Nausea/vomiting Patient with a recent negative stress test and echocardiogram 4 days ago. Started on IVF, kept NPO. SLowly restarted diet. Given zofran for nausea/ vomiting. Her chest pain resolved as did her abdominal pain. She was instructed to follow up [facility] outpatient GI. Vital Signs/Physical Exam: Temp Pulse Resp BP Pulse Ox 98.7 F 97 H 18 94/66 96 02/06/19 04:21 02/06/19 04:21 02/06/19 04:21 02/06/19 04:21 02/06/19 04:21 General: Alert, In no apparent distress HEENT: Atraumatic, PERRLA, EOMI Neck: Supple, JVD not distended Respiratory: Clear to auscultation bilaterally, Normal air movement Cardiovascular: Regular rate/rhythm, Normal S1 S2 Gastrointestinal: Normal bowel sounds, No tenderness Musculoskeletal: No tenderness Integumentary: No rashes Neurological: Normal speech, Normal tone, Normal affect Lymphatics: No axilla or inguinal lymphadenopathy Laboratory Data at Discharge: WBC 5.7 K/uL (4.3-10.9) 01/22/19 06:14 Hgb 10.6 g/dL (12.0-15.0) L 01/22/19 06:14 Hct 30.7 % (36.0-45.0) L 01/22/19 06:14 Plt Count 336 K/uL (152-406) 01/22/19 06:14 PT 14.9 SECONDS (9.5-12.5) H 01/19/19 16:19 INR 1.27 01/19/19 16:19 Sodium 137 mmol/L (136-145) 01/22/19 06:14 Potassium 3.8 mmol/L (3.5-5.1) 01/22/19 06:14 BUN 12 mg/dL (7-18) 01/22/19 06:14 Creatinine 1.28 mg/dL (0.55-1.3) 01/22/19 06:14 Glucose 122 mg/dL (74-106) H 01/22/19 06:14 Magnesium 2.2 mg/dL (1.8-2.4) 01/19/19 16:19 Total Bilirubin 0.5 mg/dL (0.2-1.0) 01/22/19 06:14 AST 13 U/L (15-37) L 01/22/19 06:14 ALT 9 U/L (12-78) L 01/22/19 06:14 Alkaline Phosphatase 38 U/L (45-117) L 01/22/19 06:14 Lipase 72 U/L (73-393) L 01/19/19 16:19 Home Medications: Zolpidem Tartrate [Ambien*] 10 mg PO BEDTIME PRN PRN 08/18/16 Vit D3/Folic Acid/B2/B6/B12 [Folgard Tablet] 1 each PO DAILY 11/21/18 Abemaciclib [Verzenio] 150 mg PO BID 01/16/19 Pantoprazole [Protonix Tab*] 40 mg PO DAILY 01/16/19 Metoprolol Tartrate [Lopressor*] 50 mg PO BID #60 tab 01/22/19 Ondansetron [Zofran] 4 mg PO Q6H PRN #15 tab 01/22/19 New Medications: Metoprolol Tartrate [Lopressor*] 50 mg PO BID #60 tab Ondansetron [Zofran] 4 mg PO Q6H PRN #15 tab PRN Reason: Nausea / Vomiting Patient Discharge Instructions: Please follow up with your primary care physician in 2-3 days. I have provided you with information for 3 gastroenterology doctors. Please call their office to schedule an appointment with them. Please return to the Emergency Room with worsening symptoms. Diet: [place] Activity: Ad martina Followup: Michelle Pollard MD [OUTSIDE PHYSICIAN] - Liam Wu MD [ACTIVE - CAN ADMIT] - Miles Blanton MD [ACTIVE - CAN ADMIT] - Kevin Rosales MD [ASSOCIATE-ACTIVE - CAN ADMIT] - Time spent managing pt's care (in minutes): 60
== END 2019-01-22 15:04 | disposition home or self-care (01) | DRG 313 ==
LOC: ER 13:56 → ERHOLD 16:35 → 2ND 20:01 → OBSVTOIN 01-21 22:11
PROVIDERS: ADMIT Family Medicine; ATTEND Family Medicine
PROC: 05HQ33Z Insertion of Infusion Device into Left External Jugular Vein, Percutaneous Approach (ICD-10-PCS; principal; 2019-01-21)
DX: R07.9 Chest pain, unspecified (principal); J91.0 Malignant pleural effusion; R11.2 Nausea with vomiting, unspecified; Z85.3 Personal history of malignant neoplasm of breast; I10 Essential (primary) hypertension; E78.5 Hyperlipidemia, unspecified; K52.9 Noninfective gastroenteritis and colitis, unspecified; R06.02 Shortness of breath; E03.9 Hypothyroidism, unspecified; R00.0 Tachycardia, unspecified
CPT/HCPCS: 36415; 71045; 71260; 74177; 76705; 80048; 80053; 80076; 81003; 82140; 83690; 83735; 83880; 84443; 84484; 85025; 85610; 87086; 87088; 93005; 96361; 96374; 96375; 99285; C9113; G0378; J0696; J1650; J2405; J7030; Q9967

== ENCOUNTER 2019-02-08 12:59 | Inpatient (IN) | payer OTHER ==
[2019-02-08] MEDS ORDERED: ONDANSETRON 4 MG/2 ML VIAL ONE (14:04)
[2019-02-08] MEDS ORDERED: NA CHLORIDE 0.9% 500 ML ONE ×3 (14:04→18:40)
[2019-02-08 15:12] LABS: Absolute Lymphocytes (CBC) 1.8 K/uL (0.7-4.9); Absolute Monocytes 0.5 K/uL (0.1-1.3); Absolute Neutrophil 4.4 K/uL (1.8-8.0); Basophils % 1.3 % (0-1.3); Eosinophils % 0.4 % (0-4.4); Hematocrit 31.9 % (36.0-45.0); Lymphocytes % 26.1 % (15.3-44.8); MPV 6.6 fL (7.6-11.3); Monocytes % 7.3 % (3.3-12.3); RBC Red Blood Cell Count 3.23 M/uL (3.86-4.86)
[2019-02-08] MEDS ORDERED: PROMETHAZINE 25 MG/ML VIAL ONE (15:19)
[2019-02-08 15:25] LABS: Albumin 2.5 g/dL (3.4-5.0); Bilirubin Direct 0.3 mg/dL (0-0.2); Bilirubin Total 0.9 mg/dL (0.2-1.0); Potassium 4.2 mmol/L (3.5-5.1); Protein, Total 7.5 g/dL (6.4-8.2)
--- OUTSIDE RECORDS SUMMARY | 2019-02-08 16:05 | XMS REPORT | Clinical Summary ---
:1955 Author Organization [facility] Address [address] [place] [address] Care Team Providers Name Role Phone Pcp, No Primary Care Provider Unavailable Allergies No Known Allergies Medications Medication Sig Dispensed Refills Start Date End Date Status metoprolol Take 50 mg by 0 01/22/2019 Active (LOPRESSOR) 50 MG mouth daily. tablet zolpidem (AMBIEN) 10 Take 10 mg by 5 01/13/2019 Active mg tablet mouth every night as needed. pantoprazole Take 40 mg by 0 Active (PROTONIX) 40 MG mouth daily. tablet abemaciclib 150 mg Take 150 mg by 0 Active Tab mouth 2 (two) times daily. ondansetron Take 4 mg by 0 01/22/2019 Active (ZOFRAN-ODT) 4 MG mouth every 6 disintegrating (six) hours as tablet needed DISSOLVE FOR NAUSEA AND VOMITING. sertraline (ZOLOFT) Take 50 mg by 12 12/15/2018 Active 50 MG tablet mouth daily. ALPRAZolam (XANAX) Take 0.5 mg by 0 Active 0.5 MG mouth 3 tabletIndications: (three) times anxiety daily as needed for Anxiety. metroNIDAZOLE Take 500 mg by 0 01/09/2019 Discontinued (FLAGYL) 500 MG mouth every 8 9 tablet (eight) hours. metoprolol Take 25 mg by 4 01/09/2019 Discontinued (TOPROL-XL) 25 MG 24 mouth daily. 9 hr tablet Active Problems Problem Noted Date Abdominal distension 01/31/2019 Nausea and vomiting 01/31/2019 Weight loss 01/31/2019 Ascites 01/31/2019 Encounters Date Type Specialty Care Team Description 02/01/2019 Travel 01/31/2019 - Hospital Encounter General Internal Kassie Lovett Intractable vomiting with nausea, unspecified vomiting type; 02/03/2019 Jacqui Hearn MD Abdominal distension; Rosina Wolfe Other ascites; Lou Oconnell, Weight loss MD Elizondo, Mary Plunkett, MD Charline Kasper, Krysten Yanez MD after 02/07/2018 Family History Medical History Relation Name Comments Cancer Neg Hx Social History Tobacco Use Types Packs/Day Years Used Date Former Smoker Smokeless Tobacco: Never Used Comments: Remote, social Alcohol Use Drinks/Week oz/Week Comments No Alcohol Habits Answer Date Recorded How often do you have a drink containing alcohol? Never 01/31/2019 How many drinks containing alcohol do you have on a typical Not asked day when you are drinking? How often do you have six or more drinks on one occasion? Not asked Sex Assigned at Date Recorded Not on file Job Start Date Occupation Industry Not on file Not on file Not on file Travel History Travel Start Travel End No recent travel history available. Last Filed Vital Signs Vital Sign Reading Time Taken Blood Pressure 118/60 02/03/2019 3:27 PM CDT Pulse 94 02/03/2019 3:27 PM CDT Temperature 36.5 C (97.7 F) 02/03/2019 3:27 PM CDT Respiratory Rate 18 02/03/2019 3:27 PM CDT Oxygen Saturation 97% 02/03/2019 8:00 AM CDT Inhaled Oxygen Concentration - - Weight 79.4 kg (175 lb) 01/31/2019 9:27 PM CDT Height 170.2 cm (5' 7") 01/31/2019 9:27 PM CDT Body Mass Index 27.41 01/31/2019 9:27 PM CDT Plan of Treatment Not on file Procedures Procedure Name Priority Date/Time Associated Comments Diagnosis C. DIFFICILE GDH Routine 02/02/2019 1:36 Results for this TOXIN PM CDT procedure are in the results section. STOOL PATH CHARGE Routine 02/02/2019 1:35 Results for this PM CDT procedure are in the results section. SHIGA TOXIN SCREEN Routine 02/02/2019 1:35 Results for this PM CDT procedure are in the results section. STOOL CULTURE + SHIGA Routine 02/02/2019 1:35 Results for this TOXIN PM CDT procedure are in the results section. CBC W/PLT COUNT & Routine 02/02/2019 12:33 Results for this AUTO DIFFERENTIAL PM CDT procedure are in the results section. CBC W/PLT COUNT & Routine 02/02/2019 12:33 Results for this AUTO DIFFERENTIAL PM CDT procedure are in the results section. MAGNESIUM Routine 02/02/2019 12:33 Results for this PM CDT procedure are in the results section. BASIC METABOLIC PANEL Routine 02/02/2019 12:33 Results for this (7) PM CDT procedure are in the results section. HEPATIC FUNCTION Routine 02/02/2019 12:33 Results for this PANEL PM CDT procedure are in the results section. US ABDOMINAL WITH Routine 02/02/2019 6:17 Results for this DOPPLER AM CDT procedure are in the results section. US PARACENTESIS Routine 02/01/2019 5:05 Results for this PM CDT procedure are in the results section. ALBUMIN, BODY FLUID Routine 02/01/2019 4:55 Results for this PM CDT procedure are in the results section. PROTEIN, BODY FLUID Routine 02/01/2019 4:55 Results for this PM CDT procedure are in the results section. BODY FLUID CULTURE + Routine 02/01/2019 4:55 Results for this GRAM STAIN PM CDT procedure are in the results section. BODY FLUID CELL COUNT Routine 02/01/2019 4:55 Results for this WITH DIFFERENTIAL PM CDT procedure are in the results section. CYTOLOGY AP Routine 02/01/2019 4:54 Results for this PM CDT procedure are in the results section. PROTHROMBIN TIME/INR Routine 02/01/2019 12:20 Results for this PM CDT procedure are in the results section. CBC (HEMOGRAM ONLY) Routine 02/01/2019 12:20 Results for this PM CDT procedure are in the results section. MAGNESIUM Routine 02/01/2019 12:20 Results for this PM CDT procedure are in the results section. BASIC METABOLIC PANEL Routine 02/01/2019 12:20 Results for this (7) PM CDT procedure are in the results section. HEPATIC FUNCTION Routine 02/01/2019 12:20 Results for this PANEL PM CDT procedure are in the results section. after 02/07/2018 Results Clostridium difficile GDH Toxin (02/02/2019 1:36 PM CDT) C. Difficle Toxin Negative Negative [facility] C. Difficile GDH Antigen NegativeComment: No Negative [facility] indication of [facility] difficile infection and no colonization. Discontinue enteric isolation and therapy. Specimen Stool - Stool Narrative Performed At Testing performed by [employer] [facility] Assay.For GDH, published sensitivity of the assay is 98.7% compared to cytotoxicity testing.For Toxin AB, published sensitivity is 87.8% and specificity 99.4% compared to cytotoxicity testing. Verification of kit performance was done by the [facility] Microbiology Lab prior to clinical use. Performing Organization Address [facility] Phone Number [address] [address] [phone] [place] STOOL PATH CHARGE (02/02/2019 1:35 PM CDT) Pathogen exam charged Done [facility] Specimen Stool - Stool Performing Organization Address [facility] Phone Number [address] [address] [place] Shiga Toxin Screen (02/02/2019 1:35 PM CDT) Shiga toxin 1 Not detected Not detected [facility] Shiga toxin 2 Not detected Not detected [facility] Specimen Stool - Stool Narrative Performed At Resubmit new specimen if clinically [facility] indicated. Performing Organization Address [facility] Phone Number [address] [address] [place] Stool culture + Shiga toxin (02/02/2019 1:35 PM CDT) Result No Salmonella, Shigella or [facility] Campylobacter isolated [facility] [place] Specimen Stool - Stool Performing Organization Address [facility] Phone Number [address] [address] [place] CBC with platelet count + automated diff (02/02/2019 12:33 PM CDT) WBC 6.6 3.5 - 10.5 K/L [facility] RBC 2.65 (L) 3.93 - 5.22 M/L [facility] Hemoglobin 8.6 (L) 11.2 - 15.7 GM/DL [facility] Hematocrit 28.1 (L) 34.1 - 44.9 % [facility] MCV 106.0 (H) 79.4 - 94.8 fL [facility] MCH 32.5 (H) 25.6 - 32.2 pg [facility] MCHC 30.6 (L) 32.2 - 35.5 GM/DL [facility] RDW 13.6 11.7 - 14.4 % [facility] Platelets 285 150 - 450 K/CU MM [facility] MPV 8.3 (L) 9.4 - 12.3 fL [facility] nRBC 0 0 - 0 /100 WBC [facility] % Neutros 71 % [facility] % Lymphs 22 % [facility] % Monos 6 % [facility] % Eos 0 % [facility] % Baso 1 % [facility] # Neutros 4.68 1.56 - 6.13 K/L [facility] # Lymphs 1.43 1.18 - 3.74 K/L [facility] # Monos 0.39 (H) 0.24 - 0.36 K/L [facility] # Eos 0.02 (L) 0.04 - 0.36 K/L [facility] # Baso 0.03 0.01 - 0.08 K/L [facility] Immature 1 0 - 1 % [facility] Granulocytes-[facility] Specimen Blood - Arm, Left Performing Organization Address City/State/Zipcode Phone Number [facility] [address] [place] [address] [place] Magnesium (02/02/2019 12:33 PM CDT)Only the most recent of2 resultswithin the time period is included. Magnesium 1.9 1.6 - 2.6 mg/dL [facility] Specimen Blood - Arm, Left Performing Organization Address [facility] Phone Number [address] [address] [phone] [place] Hepatic function panel (02/02/2019 12:33 PM CDT)Only the most recent of2 resultswithin the time period is included. Protein, Total 6.2 6.0 - 8.3 gm/dL [facility] Albumin 2.7 (L) 3.5 - 5.0 g/dL [facility] Total Bilirubin 0.5 0.2 - 1.2 mg/dL [facility] Bilirubin, Direct 0.2 0.1 - 0.5 mg/dL [facility] Alkaline Phosphatase 36 (L) 40 - 150 U/L [facility] AST 16 5 - 34 U/L [facility] ALT 10 6 - 55 U/L [facility] Specimen Blood - Arm, Left Performing Organization Address [facility] Phone Number [address] [address] [place] Basic metabolic panel (02/02/2019 12:33 PM CDT)Only the most recent of2 resultswithin the time period is included. Sodium 139 136 - 145 meq/L [facility] Potassium 4.0 3.5 - 5.1 meq/L [facility] Chloride 110 (H) 98 - 107 meq/L [facility] CO2 21 (L) 22 - 29 meq/L [facility] BUN 21 7 - 21 mg/dL [facility] Creatinine 1.34 (H) 0.57 - 1.25 mg/dL [facility] Glucose 112 (H) 70 - 105 mg/dL [facility] Calcium 8.5 8.4 - 10.2 mg/dL [facility] EGFR 49Comment: ESTIMATED GFR IS mL/min/1.73 sq m [facility] NOT ACCURATE CREATININE [facility] CLEARANCE IN PREDICTING GLOMERULAR FILTRATION RATE. ESTIMATED GFR IS NOT APPLICABLE FOR DIALYSIS PATIENTS. Specimen Blood - Arm, Left Performing Organization Address City/State/Zipcode Phone Number [facility] [address] [place] [address] CENTER US abdominal with doppler (02/02/2019 6:17 AM CDT) Narrative Performed At FINAL REPORT [facility] Abdominal ultrasound and Doppler Clinical History:Portal vein thrombosis Discussion: Sonographic evaluation of the the abdomen is performed including color Doppler and spectral waveform analysis The liver has normal size and measures 11.2 cm in length. The liver demonstrates heterogeneous echotexture, without focal mass. There is no intrahepatic biliary dilatation. The common bile duct was not visualized. The gallbladder has normal appearance, without wall thickening, stones, or pericholecystic fluid.The main portal vein diameter is normal,measuring 8 mm. The pancreas was not well seen. There is moderate ascites. The right and the left kidney measure 9.0 and 9.3 cm in length respectively and are normal in size. There is no renal mass, hydronephrosis, or shadowing renal calculus. The spleen measures 7.2 cm in length and is normal in echotexture. Segments of the inferior vena cava and aorta visualized demonstrate no abnormality. The main portal vein is 0.8 cm in diameter with peak systolic velocity of 51 cm/sec. The main, right, and left portal vein demonstrate hepatopedal flow. The resistive indices of the proper, right and left hepatic arteries are 0.7, 0.6 and 0.5. The IVC, right, middle hepatic veins and splenic veins are patent. The left hepatic vein was not visualized. Impression: 1. Heterogeneous liver echotexture likely represents cirrhosis. 2. Moderate ascites. 3. No Doppler evidence of portal vein thrombosis. Signed: Vahid Espinoza MD Report Verified Date/Time:02/02/2019 10:51:26 Reading Location: [address] Ultrasound Reading Room Procedure Note Interface, External Ris In - 02/02/2019 10:53 AM CDT FINAL REPORT Abdominal ultrasound and Doppler Clinical History: Portal vein thrombosis Discussion: Sonographic evaluation of the the abdomen is performed including color Doppler and spectral waveform analysis The liver has normal size and measures 11.2 cm in length. The liver demonstrates heterogeneous echotexture, without focal mass. There is no intrahepatic biliary dilatation. The common bile duct was not visualized. The gallbladder has normal appearance, without wall thickening, stones, or pericholecystic fluid. The main portal vein diameter is normal, measuring 8 mm. The pancreas was not well seen. There is moderate ascites. The right and the left kidney measure 9.0 and 9.3 cm in length respectively and are normal in size. There is no renal mass, hydronephrosis, or shadowing renal calculus. The spleen measures 7.2 cm in length and is normal in echotexture. Segments of the inferior vena cava and aorta visualized demonstrate no abnormality. The main portal vein is 0.8 cm in diameter with peak systolic velocity of 51 cm/sec. The main, right, and left portal vein demonstrate hepatopedal flow. The resistive indices of the proper, right and left hepatic arteries are 0.7, 0.6 and 0.5. The IVC, right, middle hepatic veins and splenic veins are patent. The left hepatic vein was not visualized. Impression: 1. Heterogeneous liver echotexture likely represents cirrhosis. 2. Moderate ascites. 3. No Doppler evidence of portal vein thrombosis. Signed: Vahid Espinoza MD Report Verified Date/Time: 02/02/2019 10:51:26 Reading Location: [address] Ultrasound Reading Room Performing Organization Address City/State/Zipcode Phone Number [facility] US paracentesis (02/01/2019 5:05 PM CDT) Narrative Performed At FINAL REPORT [facility] Ultrasound-guided paracentesis. Clinical History: Ascites Informed consent was obtained from the patient and the risks of the procedure were explained including bleeding, infection, bowel perforation and visceral injury. Sedation: 1% Xylocaine was used as local sedation. Conscious sedation protocol was not utilized as no systemic analgesia was administered. Technique: Using sterile technique, ultrasound guidance and a 5 Guinean coaxial needle, a single pass right lower quadrant paracentesis was performed.The inner needle was removed and the plastic catheter was left in place and connected through sterile tubing to an evacuated container.The procedure yielded 4100 cc of serous fluid. The catheter was then removed.No immediate complications developed. Labs were sent as requested. Estimated blood loss: None Patient disposition: The patient was asymptomatic at the end of the exam. Impression: Successful paracentesis yielding 4100 cc of fluid Signed: Brian Segundo MD Report Verified Date/Time:02/01/2019 17:07:23 Reading Location: [address] Ultrasound Reading Room Procedure Note Interface, External Ris In - 02/01/2019 5:29 PM CDT FINAL REPORT Ultrasound-guided paracentesis. Clinical History: Ascites Informed consent was obtained from the patient and the risks of the procedure were explained including bleeding, infection, bowel perforation and visceral injury. Sedation: 1% Xylocaine was used as local sedation. Conscious sedation protocol was not utilized as no systemic analgesia was administered. Technique: Using sterile technique, ultrasound guidance and a 5 Guinean coaxial needle, a single pass right lower quadrant paracentesis was performed. The inner needle was removed and the plastic catheter was left in place and connected through sterile tubing to an evacuated container. The procedure yielded 4100 cc of serous fluid. The catheter was then removed. No immediate complications developed. Labs were sent as requested. Estimated blood loss: None Patient disposition: The patient was asymptomatic at the end of the exam. Impression: Successful paracentesis yielding 4100 cc of fluid Signed: Brian Segundo MD Report Verified Date/Time: 02/01/2019 17:07:23 Reading Location: [address] Ultrasound Reading Room Performing Organization Address [facility] Phone Number GE RIS Body fluid culture + gram stain (02/01/2019 4:55 PM CDT) Result No growth [facility] Gram Stain Result 1+ WBCs [facility] Gram Stain Result No organisms seen [facility] Specimen Body Fluid - Ascites Performing Organization Address [facility] Phone Number [facility] [address] [place] [address] [phone] CENTER Body fluid cell count with differential (02/01/2019 4:55 PM CDT) Appearance Slightly Hazy (A) Clear [facility] Color Yellow (A) Colorless, Straw [facility] RBCs 262 (H) <=1 /cu mm [facility] Adjusted WBC Count 93 (H) <=5 /cu mm [facility] Lining Cells 4 (H) <=1 /cu mm [facility] % Segs 1 % [facility] % Lymphs 14 % [facility] % Monos 85 % [facility] % Eos 0 % [facility] % Baso 0 % [facility] Container Body Fluid EDTA Tube [facility] Specimen Body Fluid - Ascites Performing Organization Address [facility] Phone Number [facility] [address] [place] [address] CENTER Protein, body fluid (02/01/2019 4:55 PM CDT) Protein, Fluid 4.6 g/dL [facility] Specimen Body Fluid - Ascites Narrative Performed At Absence of reference range indicates that [facility] normals have not been defined. Assay performance has not been validated for this type of specimen. Performing Organization Address [facility]/Zipcode Phone Number [facility] [address], [place] [address] [phone] [place] Albumin, body fluid (02/01/2019 4:55 PM CDT) Albumin, Fluid 2.6 gm/dL [facility] Specimen Body Fluid - Ascites Narrative Performed At Reference Range:No Normals [facility] Assay performance has not been validated for this type of specimen. Performing Organization Address City/[facility] Phone Number [facility] [address] [place] [address] [place] Cytology (02/01/2019 4:54 PM CDT) Case Report Medical Cytology Report Case: [id number] [facility] Authorizing Provider:Mary Elizondo MD Collected: 02/01/2019 1654 [facility] Ordering Location: [address] Received: 02/02/2019 0857 Service Pathologist: Cherri Covington MD Specimen:Peritoneal Fluid DIAGNOSIS PERITONEAL FLUID (CYTOSPINS AND CELL BLOCK): [facility] - METASTATIC ADENOCARCINOMA, COMPATIBLE WITH BREAST PRIMARY (SEE COMMENT ) [facility] Signing Pathologist Direct Phone Line: [phone] COMMENT The peritoneal fluid shows few atypical cells, scattered mostly singly. These cells are positive for MOC-31, Irwin-EP4 and MAYUR-3. GCDFP is negative. Calretinin and WT-1 highlight mesothelial cells. The i [facility] mmunoprofile is compatible with patient's history of breast primary [facility] An addendm report will follow with the results of the biomarkers. CPT Code(s) 68213, 73459; 17806; 97438 x 5 [facility] CLINICAL DATA Ascites, history of of breast cancer (dx 2009 s/p chemoXRT, lumpectomy) [facility] SPECIMEN SOURCE PERITONEAL FLUID [facility] GROSS DESCRIPTION 1100 mls yellow; 4 cytospins, cell block [facility] Collected: [id number] [facility] Received: [id number] STATEMENT OF ADEQUACY Satisfactory [facility] SPECIAL STUDIES The interpretation of this case included the use of immunohistochemistry or special stains. [facility] Calretinin; WT-1; MAYUR-3; GCDFP; MOC-31 AND IRWIN-EP4 [facility] Immunohistochemistry technical testing was performed at [facility], Pathology Laboratory where it was developed and its performance characteristics were determined. It has not be en cleared or approved by the U.S. Food and Drug Administration. The FDA has determined that such clearance or approval is not necessary. The test is used for clinical purposes. It should not be regarde d as investigational or for research. This laboratory is certified under the Clinical Laboratory Improvement Amendments of 1988 (CLIA-88) as qualified to perform high complexity clinical laboratory testing. Gross assessment was [facility] performed at [place], Department [facility], [address] [place] [id number], Technical component was [facility] performed at [place], Department of [facility] Pathology, [address] [place] [address], Professional component [facility] was performed at [place], [facility], [address] [place] [id number], Specimen Body Fluid - Peritoneal Fluid Narrative Performed At Performing Organization Address City/State/Zipcode Phone Number [address] [address] [place] Prothrombin time/INR (02/01/2019 12:20 PM CDT) Protime 16.5 (H) 11.7 - 14.7 seconds [facility] INR 1.3 <=5.9 [facility] Specimen Blood Narrative Performed At RECOMMENDED COUMADIN/WARFARIN INR THERAPY [facility] RANGES STANDARD DOSE: 2.0 - 3.0 Includes: PROPHYLAXIS for venous thrombosis, systemic embolization; TREATMENT for venous thrombosis and/or pulmonary embolus. HIGH RISK: Target INR is 2.5-3.5 for patients with mechanical heart valves. Performing Organization Address City/State/Zipcode Phone Number [facility] [address], [place] [phone] [place] CBC (Hemogram only) (02/01/2019 12:20 PM CDT) WBC 9.6 3.5 - 10.5 K/L [facility] RBC 2.77 (L) 3.93 - 5.22 M/L [facility] Hemoglobin 9.1 (L) 11.2 - 15.7 GM/DL [facility] Hematocrit 28.9 (L) 34.1 - 44.9 % [facility] MCV 104.3 (H) 79.4 - 94.8 fL [facility] MCH 32.9 (H) 25.6 - 32.2 pg [facility] MCHC 31.5 (L) 32.2 - 35.5 GM/DL [facility] RDW 13.7 11.7 - 14.4 % [facility] Platelets 318 150 - 450 K/CU MM [facility] MPV 8.3 (L) 9.4 - 12.3 fL [facility] nRBC 0 0 - 0 /100 WBC [facility] Specimen Blood Performing Organization Address City/State/Zipcode Phone Number [facility] [address] [place] [address] CENTER after 02/07/2018 Insurance Payer Benefit Plan / Group Subscriber ID Type Phone Address MEDICARE MEDICARE A B xxxxxxxxxxx Medicare MEDICAID MEDICAID [facility] [place] Medicaid Advance Directives For more information, please contact:[address] [phone] Code Status Date Activated Date Inactivated Comments Full Code 01/31/2019 10:57 PM 02/03/2019 7:00 PM This code status was determined by: Patient
--- OUTSIDE RECORDS SUMMARY | 2019-02-08 16:05 | XMS REPORT | Clinical Summary ---
:1955 Author Organization [facility] Address [address] [place] [address] Care Team Providers Name Role Phone Michelle [...] BREAST CANCER SCREENING 04/08/2014 04/08/2012 INFLUENZA VACCINE 06/08/2019 Results Not on fileafter 02/07/2018 Insurance Payer Benefit Plan / Group Subscriber ID Type Phone Address MEDICARE MEDICARE PART A AND B xxxxxxxxxx Medicare [place] MEDICA[place] MEDICAID xxxxxxxxx Medicaid Advance Directives Patient has advance care planning documents on file. For more information, please contact:Don Sam[address] [place] [address]
--- OUTSIDE RECORDS SUMMARY | 2019-02-08 16:06 | XMS REPORT ---
:1955 Author Organization [facility] Address [address] [place] [address] [address] [place] [address] Care Team Providers Name Role Phone MADISON DOUGLAS Unavailable Unavailable Problems This patient has no known problems. Allergies, Adverse Reactions, Alerts This patient has no known allergies or adverse reactions. Medications This patient has no known medications. Results Test Description Test Time Test Comments Text Results Atomic Results Result Comments CYTOLOGY 2019-02-07 16:06:00 Medical Cytology Report Case: [id number] Authorizing Provider: Mary Elizondo MD Collected: 02/01/2019 1654 Ordering Location: [address] Received: 02/02/2019 0857 Service Pathologist: Cherri Covington MD Specimen: Peritoneal Fluid PERITONEAL FLUID (CYTOSPINS AND CELL BLOCK): - METASTATIC ADENOCARCINOMA, COMPATIBLE WITH BREAST PRIMARY (SEE COMMENT) Signing Pathologist Direct Phone Line: [phone] signed by hCerri Covington MD on 02/07/2019 at 4:06 PMThe peritoneal fluid shows few atypical cells, scattered mostly singly. These cells are positive for MOC-31, Esteban-EP4 and MAYUR-3. GCDFP is negative. Calretinin and WT-1 highlight mesothelial cells. The immunoprofile is compatible with patient's history of breast primaryAn addendm report will follow with the results of the biomarkers.45762, 05920; 15793; 08197 x 5Ascites, history of of breast cancer (dx 2009 s/p chemoXRT, lumpectomy)PERITONEAL [id number] mls yellow; 4 cytospins, cell blockCollected: [id number]: [id number] interpretation of this case included the use of immunohistochemistry or special stains. Calretinin; WT-1; MAYUR-3; GCDFP; MOC-31 AND ESTEBAN-TK3Kfbgidhwqkbhssqufgfk technical testing was performed at [facility], Pathology Laboratory where it was developed and its performance characteristics were determined. It has not been cleared or approved by the U.S. Food and Drug Administration. The FDA has determined that such clearance or approval is not necessary. The test is used for clinical purposes. It should not be regarded as investigational or for research. This laboratory is certified under the Clinical Laboratory Improvement Amendments of 1988 (CLIA-88) as qualified to perform high complexity clinical laboratory testing.[facility], Department of Pathology, [address] [place] [address], [facility], [address] [place] [address], [facility], [facility] of [facility], [address] [place] [address], STOOL CULTURE + SHIGA TOXIN 2019-02-06 00:23:00 Test Item Value Reference Range Comments CULTURE (BEAKER) (test tqyf=1490) No Salmonella, Shigella or Campylobacter isolated SHIGA TOXIN [id number] 10:46:00 Test Item Value Reference Range Comments SHIGA TOXIN 1 (BEAKER) (test iipd=3449) Not detected Not detected SHIGA TOXIN 2 (BEAKER) (test assp=0738) Not detected Not detected Resubmit new specimen if clinically indicated.BODY FLUID CULTURE + GRAM [id number] 08:40:00 Test Item Value Reference Range Comments CULTURE (BEAKER) (test qvpx=1992) No growth GRAM STAIN RESULT (BEAKER) (test 1+ WBCs yhaf=0359) GRAM STAIN RESULT (BEAKER) (test No organisms seen sxdz=16046) STOOL PATH [id number] 11:26:00 Test Item Value Reference Range Comments PATHOGEN EXAM CHARGED (BEAKER) (test ehjx=1058) Done C. DIFFICILE GDH [id number] 17:05:00 Test Item Value Reference Range Comments CDT TOXIN (test Negative Negative gzap=[id number]) CDT GDH ANTIGEN (test Negative Negative No indication of Clostridium eqwg=[id number]) difficile infection and no colonization. Discontinue enteric isolation and therapy. Testing performed by [facility] Rapid Cassette Assay. For GDH, published sensitivity of the assay is 98.7% compared to cytotoxicity testing. For Toxin AB, published sensitivity is 87.8% and specificity 99.4% compared to cytotoxicity testing.Verification of kit performance was done by the [facility] Microbiology Lab prior to clinical use.[id number] 13:10:00 Test Item Value Reference Range Comments MAGNESIUM (BEAKER) (test lior=229) 1.9 mg/dL 1.6-2.6 BASIC METABOLIC [id number] 13:10:00 Test Item Value Reference Range Comments SODIUM (BEAKER) (test 139 meq/L 136-145 ydar=768) POTASSIUM (BEAKER) (test 4.0 meq/L 3.5-5.1 luee=099) CHLORIDE (BEAKER) (test 110 meq/L 98-107 oyin=781) CO2 (BEAKER) (test 21 meq/L 22-29 dhfk=779) BLOOD UREA NITROGEN 21 mg/dL 7-21 (BEAKER) (test dcew=648) CREATININE (BEAKER) (test 1.34 mg/dL 0.57-1.25 axdz=545) GLUCOSE RANDOM (BEAKER) 112 mg/dL 70-105 (test chrv=162) CALCIUM (BEAKER) (test 8.5 mg/dL 8.4-10.2 yhud=682) EGFR (BEAKER) (test 49 mL/min/1.73 sq m ESTIMATED GFR IS NOT eoxc=7738) ACCURATE CREATININE CLEARANCE IN PREDICTING GLOMERULAR FILTRATION RATE. ESTIMATED GFR IS NOT APPLICABLE FOR DIALYSIS PATIENTS. HEPATIC FUNCTION [id number] 13:10:00 Test Item Value Reference Range Comments TOTAL PROTEIN (BEAKER) (test ujxv=397) 6.2 gm/dL 6.0-8.3 ALBUMIN (BEAKER) (test avvc=0770) 2.7 g/dL 3.5-5.0 BILIRUBIN TOTAL (BEAKER) (test argb=668) 0.5 mg/dL 0.2-1.2 BILIRUBIN DIRECT (BEAKER) (test lsyh=512) 0.2 mg/dL 0.1-0.5 ALKALINE PHOSPHATASE (BEAKER) (test xljm=902) 36 U/L 40-150 AST (SGOT) (BEAKER) (test bgct=491) 16 U/L 5-34 ALT (SGPT) (BEAKER) (test tyrn=100) 10 U/L 6-55 CBC W/PLT COUNT & AUTO [id number] 12:41:00 Test Item Value Reference Range Comments WHITE BLOOD CELL COUNT (BEAKER) (test hiyx=801) 6.6 K/ L 3.5-10.5 RED BLOOD CELL COUNT (BEAKER) (test jkwb=016) 2.65 M/ L 3.93-5.22 HEMOGLOBIN (BEAKER) (test gxqv=639) 8.6 GM/DL 11.2-15.7 HEMATOCRIT (BEAKER) (test plmo=624) 28.1 % 34.1-44.9 MEAN CORPUSCULAR VOLUME (BEAKER) (test upqe=174) 106.0 fL 79.4-94.8 MEAN CORPUSCULAR HEMOGLOBIN (BEAKER) (test 32.5 pg 25.6-32.2 azst=377) MEAN CORPUSCULAR HEMOGLOBIN CONC (BEAKER) (test 30.6 GM/DL 32.2-35.5 mgrl=039) RED CELL DISTRIBUTION WIDTH (BEAKER) (test 13.6 % 11.7-14.4 zqqe=486) PLATELET COUNT (BEAKER) (test cyre=003) 285 K/CU MM 150-450 MEAN PLATELET VOLUME (BEAKER) (test jygw=423) 8.3 fL 9.4-12.3 NUCLEATED RED BLOOD CELLS (BEAKER) (test 0 /100 WBC 0-0 dehk=900) NEUTROPHILS RELATIVE PERCENT (BEAKER) (test 71 % gnuy=183) LYMPHOCYTES RELATIVE PERCENT (BEAKER) (test 22 % buzu=270) MONOCYTES RELATIVE PERCENT (BEAKER) (test 6 % ensv=027) EOSINOPHILS RELATIVE PERCENT (BEAKER) (test 0 % yqko=689) BASOPHILS RELATIVE PERCENT (BEAKER) (test 1 % govt=596) NEUTROPHILS ABSOLUTE COUNT (BEAKER) (test 4.68 K/ L 1.56-6.13 iulo=464) LYMPHOCYTES ABSOLUTE COUNT (BEAKER) (test 1.43 K/ L 1.18-3.74 cvfs=557) MONOCYTES ABSOLUTE COUNT (BEAKER) (test 0.39 K/ L 0.24-0.36 ptdu=876) EOSINOPHILS ABSOLUTE COUNT (BEAKER) (test 0.02 K/ L 0.04-0.36 eczo=745) BASOPHILS ABSOLUTE COUNT (BEAKER) (test 0.03 K/ L 0.01-0.08 mbsy=894) IMMATURE GRANULOCYTES-RELATIVE PERCENT (BEAKER) 1 % 0-1 (test mmjg=4801) U/S, ABDOMINAL, WITH [id number] 10:51:00Reason for exam:->ascites, evaluate for PVTFINAL REPORT Abdominal ultrasound and Doppler Clinical History: Portal vein thrombosis Discussion: Sonographic evaluation of the the abdomen is performed including color Dopplerand spectral waveform analysis The liver has normal [...] of portal vein thrombosis. Signed: Vahid Espinoza MDReport Verified Date/Time: 10:51:26 Reading Location: [address] Ultrasound Reading Room BODY FLUID CELL COUNT WITH [id number] 19:54:00 Test Item Value Reference Range Comments APPEARANCE FLUID (BEAKER) (test odzy=416) Slightly Hazy Clear COLOR FLUID (BEAKER) (test vssv=137) Yellow Colorless, Straw RBC FLUID (BEAKER) (test nslp=773) 262 /cu mm <=1 ADJUSTED WBC FLUID (BEAKER) (test bqbe=5075) 93 /cu mm <=5 LINING CELLS (BEAKER) (test xjsc=2428) 4 /cu mm <=1 NEUTROPHILS FLUID (BEAKER) (test cgtx=3592) 1 % LYMPHS FLUID (BEAKER) (test zjvu=773) 14 % MONO/MACROPHAGE FLUID (BEAKER) (test 85 % uhhp=295) EOSINOPHILS FLUID (BEAKER) (test mayy=333) 0 % BASO FLUID (BEAKER) (test rhha=738) 0 % CONTAINER BODY FLUID (BEAKER) (test EDTA Tube hldj=5209) ALBUMIN, BODY [id number] 18:05:00 Test Item Value Reference Range Comments ALBUMIN FLUID (BEAKER) (test oglg=170) 2.6 gm/dL Reference Range: No Normals Assay performance has not been validated for this type of specimen.PROTEIN, BODY [id number] 18:05:00 Test Item Value Reference Range Comments PROTEIN FLUID (BEAKER) (test ijbp=902) 4.6 g/dL Absence of reference range indicates that normals have not been defined.Assay performance has not been validated for this type of specimen.U/S, [id number] 17:07:00Reason for exam:->ascites of unclear etiology , for diagnosis and therapeuticFINAL REPORT Ultrasound- guided paracentesis. Clinical History: Ascites Informed consent was obtained from the patient and the risks of the procedure were explained including bleeding, infection, bowel perforation and visceral injury. Sedation: 1% Xylocaine was used as local sedation. Conscious sedation protocol was not utilized as no systemic analgesia was administered. Technique: Using sterile technique, ultrasound guidance and a 5 Azerbaijani coaxial needle, a single pass right lower [...] yielding 4100 cc of fluid Signed: Brian Segundoeport Verified Date/Time: 02/01/2019 17:07:23 Reading Location: [facility] P006J Ultrasound Reading Room [id number] 12:56:00 Test Item Value Reference Range Comments MAGNESIUM (BEAKER) (test knzj=269) 2.2 mg/dL 1.6-2.6 BASIC METABOLIC [id number] 12:56:00 Test Item Value Reference Range Comments SODIUM (BEAKER) (test 142 meq/L 136-145 trud=589) POTASSIUM (BEAKER) (test 4.3 meq/L 3.5-5.1 bpda=170) CHLORIDE (BEAKER) (test 108 meq/L 98-107 cezl=586) CO2 (BEAKER) (test 24 meq/L 22-29 jucs=699) BLOOD UREA NITROGEN 22 mg/dL 7-21 (BEAKER) (test lprv=532) CREATININE (BEAKER) (test 1.72 mg/dL 0.57-1.25 mfby=833) GLUCOSE RANDOM (BEAKER) 139 mg/dL 70-105 (test wdro=460) CALCIUM (BEAKER) (test 9.1 mg/dL 8.4-10.2 tfhh=395) EGFR (BEAKER) (test 36 mL/min/1.73 sq m ESTIMATED GFR IS NOT lcwg=0315) ACCURATE CREATININE CLEARANCE IN PREDICTING GLOMERULAR FILTRATION RATE. ESTIMATED GFR IS NOT APPLICABLE FOR DIALYSIS PATIENTS. HEPATIC FUNCTION [id number] 12:56:00 Test Item Value Reference Range Comments TOTAL PROTEIN (BEAKER) (test mqsw=144) 7.0 gm/dL 6.0-8.3 ALBUMIN (BEAKER) (test crkf=0742) 3.1 g/dL 3.5-5.0 BILIRUBIN TOTAL (BEAKER) (test llrd=031) 0.6 mg/dL 0.2-1.2 BILIRUBIN DIRECT (BEAKER) (test dahf=286) 0.4 mg/dL 0.1-0.5 ALKALINE PHOSPHATASE (BEAKER) (test nxtb=356) 42 U/L 40-150 AST (SGOT) (BEAKER) (test yufp=374) 15 U/L 5-34 ALT (SGPT) (BEAKER) (test usvz=757) 10 U/L 6-55 PROTHROMBIN [id number] 12:51:00 Test Item Value Reference Range Comments PROTIME (BEAKER) (test gutt=900) 16.5 seconds 11.7-14.7 INR (BEAKER) (test bzpw=982) 1.3 <=5.9 RECOMMENDED COUMADIN/WARFARIN INR THERAPY RANGESSTANDARD DOSE: 2.0 - 3.0 Includes: PROPHYLAXIS forvenous thrombosis, systemic embolization; TREATMENT for venous thrombosis and/or pulmonary embolus.HIGH RISK: Target INR is 2.5-3.5 for patients with mechanical heart valves.CBC (HEMOGRAM ONLY)2019-02-01 12:38:00 Test Item Value Reference Range Comments WHITE BLOOD CELL COUNT (BEAKER) (test eyrc=803) 9.6 K/ L 3.5-10.5 RED BLOOD CELL COUNT (BEAKER) (test tmgd=058) 2.77 M/ L 3.93-5.22 HEMOGLOBIN (BEAKER) (test yloy=304) 9.1 GM/DL 11.2-15.7 HEMATOCRIT (BEAKER) (test meel=497) 28.9 % 34.1-44.9 MEAN CORPUSCULAR VOLUME (BEAKER) (test cdtu=946) 104.3 fL 79.4-94.8 MEAN CORPUSCULAR HEMOGLOBIN (BEAKER) (test 32.9 pg 25.6-32.2 alwo=460) MEAN CORPUSCULAR HEMOGLOBIN CONC (BEAKER) (test 31.5 GM/DL 32.2-35.5 crda=445) RED CELL DISTRIBUTION WIDTH (BEAKER) (test 13.7 % 11.7-14.4 gogm=254) PLATELET COUNT (BEAKER) (test uwpv=368) 318 K/CU MM 150-450 MEAN PLATELET VOLUME (BEAKER) (test eoal=904) 8.3 fL 9.4-12.3 NUCLEATED RED BLOOD CELLS (BEAKER) (test 0 /100 WBC 0-0 vyah=552)
--- NOTE | 2019-02-08 16:40 | RAD REPORT ---
EXAM DESCRIPTION: CT - Abdomen Pelvis Wo Contrast - 02/08/2019 3:50 pm CLINICAL HISTORY: Abdominal pain COMPARISON: January 15, 2019 TECHNIQUE: Computed axial tomography of the abdomen and pelvis was obtained. IV and oral contrast we re not requested. All CT scans are performed using dose optimization technique as appropriate and may include automated exposure control or mA/KV adjustment according to patient size. FINDINGS: The evaluation of solid organs, vessels and bowel is limited secondary to the lack of con trast administration. 16 x 5 centimeter loculated low-density fluid collection is present within the lateral aspect of the right upper quadrant. It compresses and displaces the right lobe of the liver medially. A small to moderate amount of ascites is present within the remainder of the abdomen. A small amount of ascites is present within the pelvis. Portions of the ascites superior loculated. Spleen, pancreas, adrenals and kidneys demonstrate no acute abnormality. There is no evidence of diverticulitis. Previously described sclerotic foci within the bones is unchanged Small to moderate hiatal hernia Several mildly dilated loops of small bowel probably indicate an ileus IMPRESSION: 16 x 5 centimeter loculated low-density fluid collection within the lateral aspect of th e right upper quadrant exhibits mass effect on the adjacent liver. The liver is compressed and displa betito medially. Presumably this represents loculated ascites. A subcapsular hepatic hematoma which has developed since the prior CAT scan is doubtful but should be correlated with clinical history and hem atocrit. Given the loculated ascites this may be malignant.
--- NOTE | 2019-02-08 16:56 | EDPHYS ---
Physician Documentation [facility] Name: Angie Spring Age: 63 yrs Sex: Female : 1955 Arrival Date: 02/08/2019 Time: 13:05 Bed 23 Private MD: ED Physician Hal Patino HPI: 02/08 14:43 This 63 yrs old Black Female presents to ER via EMS with complaints of low blood rn pressure. 14:43 The patient presents to the emergency department with nausea, vomiting. Onset: The rn symptoms/episode began/occurred at an unknown time. Possible causes: unknown. The symptoms are aggravated by nothing. The symptoms are alleviated by nothing. Severity of symptoms: At their worst the symptoms were moderate in the emergency department the symptoms are unchanged. The patient has experienced similar episodes in the past. Sent by Dr. Blanton from GI center for hypotension and vomiting, was tachycardic, reports was at clinic to get results of recent EGD, denies chest pain/sob/urinary symptoms/blood in stool. + chronic acid reflux, has been throwing up this week. . Historical: - Allergies: 13:16 No Known Allergies; ca1 - Home Meds: 13:16 metoprolol [Active]; ca1 - PMHx: 13:16 breast cancer; fluid around lungs; Hypertension; lymphedema; ca1 - PSHx: 13:16 Lymph Nodes removed (8); ca1 - Immunization history:: Flu vaccine is up to date. - Social history:: Smoking status: Patient/guardian denies using tobacco. - Ebola Screening: : No symptoms or risks identified at this time. - Family history:: not pertinent. - Hospitalizations: : No recent hospitalization is reported. ROS: 14:43 Constitutional: Negative for fever, chills, and weight loss, Eyes: Negative for injury, rn pain, redness, and discharge, Neck: Negative for injury, pain, and swelling, Cardiovascular: Negative for chest pain, palpitations, and edema, Respiratory: Negative for shortness of breath, cough, wheezing, and pleuritic chest pain, Abdomen/GI: + nausea/vomiting MS/Extremity: Negative for injury and deformity, Skin: Negative for injury, rash, and discoloration, Neuro: + generalized weakness, no focal weakness Exam: 14:43 Constitutional: This is a well developed, well nourished patient who is awake, alert, rn appears tired Head/Face: Normocephalic, atraumatic. Eyes: Pupils equal round and reactive to light, extra-ocular motions intact. Lids and lashes normal. Conjunctiva and sclera are non-icteric and not injected. Cornea within normal limits. Periorbital areas with no swelling, redness, or edema. ENT: dry MM Cardiovascular: tachycardic, regular, no murmur Respiratory: Diminished bilateral breath sounds at bases, no wheezing Abdomen/GI: sof,t non-tender MS/ Extremity: Pulses equal, no cyanosis. Neurovascular intact. Full, normal range of motion. Equal circumference. Neuro: Awake and alert, GCS 15, oriented to person, place, time, and situation. Cranial nerves II-XII grossly intact. Motor strength 4/5 in all extremities. Sensory grossly intact. Vital Signs: 13:16 BP 114 / 77; Pulse 131; Resp 19; Temp 98.1(O); Pulse Ox 100% on R/A; Weight 95.25 kg; ca1 Height 5 ft. 7 in. (170.18 cm); Pain 6/10; 14:07 BP 96 / 66; Pulse 132; Resp 16; Pulse Ox 97% ; ca1 14:45 BP 121 / 89; Pulse 121; Resp 20; Pulse Ox 100% ; ca1 15:16 BP 121 / 73; Pulse 129; Resp 19; Pulse Ox 100% on R/A; ca1 16:07 BP 111 / 74; Pulse 125; Resp 16; Pulse Ox 97% on R/A; ca1 16:15 BP 103 / 80; Pulse 126; Resp 19; Pulse Ox 99% on R/A; ca1 16:30 BP 98 / 74; Pulse 128; Resp 21; Pulse Ox 99% on R/A; ca1 16:45 BP 106 / 80; Pulse 128; Resp 20; Pulse Ox 99% on R/A; ca1 17:00 BP 118 / 86; Pulse 130; Resp 20; Pulse Ox 99% on R/A; ca1 17:15 BP 101 / 76; Pulse 129; Resp 19; Pulse Ox 99% on R/A; ca1 17:30 BP 100 / 81; Pulse 130; Resp 21; Pulse Ox 99% on R/A; ca1 17:45 BP 107 / 80; Pulse 146; Resp 20; Pulse Ox 98% on R/A; ca1 18:00 BP 103 / 84; Pulse 137; Resp 20; Pulse Ox 99% on R/A; ca1 19:00 BP 105 / 67; Pulse 138; Resp 20; Pulse Ox 95% on R/A; ca1 20:00 BP 108 / 89; Pulse 131; Resp 19; Pulse Ox 100% on R/A; ca1 20:30 BP 108 / 85; Pulse 136; Resp 21; Pulse Ox 99% on R/A; ca1 21:00 BP 107 / 79; Pulse 134; Resp 21; Pulse Ox 98% on R/A; ca1 21:30 BP 109 / 81; Pulse 134; Resp 20; Pulse Ox 99% on R/A; ca1 22:13 BP 116 / 80; Pulse 140; Resp 19; Pulse Ox 100% on R/A; ca1 22:40 BP 118 / 81; Pulse 138; Resp 18; Pulse Ox 99% on R/A; ca1 13:16 Body Mass Index 32.89 (95.25 kg, 170.18 cm) ca1 MDM: 13:05 Patient medically screened. rn 16:53 Differential diagnosis: Nonspecific abd pain, ascites, ileus, dehydration, cancer, rn cirrhosis. Data reviewed: vital signs, nurses notes, lab test result(s), radiologic studies, CT scan, and as a result, I will admit patient. Counseling: I had a detailed discussion with the patient and/or guardian regarding: the historical points, exam findings, and any diagnostic results supporting the discharge/admit diagnosis, lab results, radiology results, the need for further work-up and treatment in the hospital. Admission orders: after a detailed discussion of the patient's condition and case, the admit orders are written by me. ED course: Paged Dr. Blanton, PA returned call, notified her of loculated ascites and ileus and need for admission, states will pass on information to Dr. Blanton.. 18:05 ED course: Consulted with Dr. Lincoln and Dr. Blanton at [facility], were contacted by rn our Dr. Blanton and Delonte Bowen, they accept for transfer pending an ICU bed, Request Abx and blood cultures. . 18:18 ED course: No bed available at [facility] despite being accepted for transfer, told by [facility] to admit to our ICU and will remain on transfer list (waiting). Notified Dr. Bowen and will put in admit orders. . 02/08 13:06 Order name: Basic Metabolic Panel; Complete Time: 15:53 rn 02/08 13:06 Order name: CBC with Diff; Complete Time: 15:53 rn 02/08 13:06 Order name: Hepatic Function; Complete Time: 15:53 rn 02/08 13:06 Order name: Lipase; Complete Time: 15:53 rn 02/08 13:08 Order name: BNP; Complete Time: 15:53 rn 02/08 18:07 Order name: Blood Culture Adult (2) rn 02/08 15:30 Order name: Abdomen ; Complete Time: 16:43 EDMS 02/08 13:06 Order name: IV Saline Lock; Complete Time: 15:14 rn 02/08 13:06 Order name: Labs collected and sent; Complete Time: 15:14 rn 02/08 13:06 Order name: EKG; Complete Time: 13:07 rn 02/08 13:06 Order name: EKG - Nurse/Tech; Complete Time: 13:59 rn Administered Medications: 14:40 Drug: NS 0.9% 500 ml Route: IV; Rate: bolus; Site: left upper arm; ca1 15:13 Follow up: IV Status: Completed infusion ca1 14:40 Drug: Zofran 4 mg Route: IVP; Site: left upper arm; ca1 15:13 Follow up: Response: No adverse reaction; Vomiting unchanged; Vomiting unchanged, ca1 informed provider 14:40 Drug: NS 0.9% 500 ml Route: IV; Rate: bolus; Site: left upper arm; ca1 17:16 Follow up: Urine output 300 ml; Response: No adverse reaction; IV Status: Completed ca1 infusion 15:13 Drug: Phenergan 12.5 mg Route: IVP; Site: left upper arm; ca1 17:15 Follow up: Response: No adverse reaction; Nausea is decreased; Nausea is decreased, no ca1 reports of vomiting 18:10 Drug: NS 0.9% 500 ml Route: IV; Rate: bolus; Site: left upper arm; ca1 18:40 Follow up: Response: No adverse reaction; IV Status: Completed infusion ca1 19:40 Drug: vancoMYCIN 1 grams Route: IVPB; Infused Over: 2 hrs; Site: left upper arm; ca1 22:00 Follow up: Response: No adverse reaction; IV Status: Completed infusion ca1 22:38 Drug: Zosyn 3.375 grams Route: IVPB; Infused Over: 60 mins; Site: left upper arm; ca1 22:38 Follow up: IV Status: Infusion continued upon admission ca1 Disposition: 02/08/19 18:19 Hospitalization ordered by Alex Bowen for Inpatient Admission. Preliminary diagnosis are Ileus, unspecified, Dehydration, Tachycardia, unspecified, Intraperitoneal fluid collection. - Bed requested for Intensive Care Unit. - Status is Inpatient Admission. ca1 - Condition is Stable. - Problem is new. - Symptoms have improved. UTI on Admission? No Signatures: Dispatcher [employer] EDMD Hal Patino MD MD rn Garcia, Cindy, RN RN cg Acob, Cheryl, RN RN ca1 Corrections: (The following items were deleted from the chart) 15:30 13:08 Abdomen Pelvis W Con+CT.RAD.BRZ ordered. [facility] EDMD 17:58 16:56 Hospitalization Ordered by Alex Bowen DO for Inpatient Admission. Preliminary rn diagnosis is Dehydration; Ileus, unspecified; Ascites. Bed requested for Telemetry/MedSurg (Inpatient). Status is Inpatient Admission. Condition is Stable. Problem is new. Symptoms have improved. UTI on Admission? No. rn 18:07 17:59 02/08/2019 17:[address] [facility]. Diagnosis is rn Ileus, unspecified. Reason for transfer: Higher level of care. Accepting physician is Dr. Shin. Condition is Stable. Problem is new. Symptoms have improved. rn 18:19 18:07 02/08/2019 17:[address] [facility]. Diagnosis is rn Ileus, unspecified; Loculated ascites; Intraperitoneal Hematoma. Reason for transfer: Higher level of care. Accepting physician is Dr. Lincoln. Condition is Stable. Problem is new. Symptoms have improved. rn 21:57 18:19 Hospitalization Ordered by Alex Bowen DO for Inpatient Admission. Preliminary cg diagnosis is Ileus, unspecified; Dehydration; Tachycardia, unspecified; Intraperitoneal fluid collection. Bed requested for Intensive Care Unit. Status is Inpatient Admission. Condition is Stable. Problem is new. Symptoms have improved. UTI on Admission? No. rn 23:25 21:57 02/08/2019 18:19 Hospitalization Ordered by Alex Bowen DO for Inpatient ca1 Admission. Preliminary diagnosis is Ileus, unspecified; Dehydration; Tachycardia, unspecified; Intraperitoneal fluid collection. Bed requested for Intensive Care Unit. Status is Inpatient Admission. Condition is Stable. Problem is new. Symptoms have improved. UTI on Admission? No. cg
--- NOTE | 2019-02-08 16:56 | ER ---
Nurse's Notes [facility] Name: Angie Spring Age: 63 yrs Sex: Female : 1955 Arrival Date: 02/08/2019 Time: 13:05 Bed 23 Private MD: Diagnosis: Ileus, unspecified;Dehydration;Tachycardia, unspecified;Intraperitoneal fluid collection Presentation: 02/08 13:10 Presenting complaint: EMS states: pt from GI center, c/o dizziness with HR 153, SBP 76, ca1 positive orthostatics. Pt was put on Trendelenburg, HR decreased to 134, SBP increased to 134. Transition of care: patient was received from another setting of care (ambulatory specialty care practice), GI center for result of upper GI studies done a week ago. Onset of symptoms was February 08, 2019. Risk Assessment: Do you want to hurt yourself or someone else? Patient reports no desire to harm self or others. Initial Sepsis Screen: Does the patient meet any 2 criteria? No. Patient's initial sepsis screen is negative. Does the patient have a suspected source of infection? No. Patient's initial sepsis screen is negative. Care prior to arrival: Glucose check: 117 Orthostatics done, put on Trendelenburg position. 13:10 Method Of Arrival: EMS: [facility] ca1 13:10 Acuity: KAT 2 iw Triage Assessment: 13:16 General: Appears in no apparent distress. ill, Behavior is calm, cooperative, ca1 appropriate for age. Pain: Complains of pain in abdomen Pain currently is 6 out of 10 on a pain scale. Cardiovascular: Heart tones S1 S2 present Capillary refill < 3 seconds Patient's skin is warm and dry. Rhythm is sinus tachycardia. Historical: - Allergies: 13:16 No Known Allergies; ca1 - Home Meds: 13:16 metoprolol [Active]; ca1 - PMHx: 13:16 breast cancer; fluid around lungs; Hypertension; lymphedema; ca1 - PSHx: 13:16 Lymph Nodes removed (8); ca1 - Immunization history:: Flu vaccine is up to date. - Social history:: Smoking status: Patient/guardian denies using tobacco. - Ebola Screening: : No symptoms or risks identified at this time. - Family history:: not pertinent. - Hospitalizations: : No recent hospitalization is reported. Screenin:18 Abuse screen: Denies threats or abuse. Denies injuries from another. Nutritional ca1 screening: No deficits noted. Tuberculosis screening: No symptoms or risk factors identified. Fall Risk IV access (20 points). Assessment: 13:18 General: Appears in no apparent distress. ill, Behavior is calm, cooperative, ca1 appropriate for age. Pain: Complains of pain in abdomen Pain does not radiate. Pain currently is 6 out of 10 on a pain scale. Pain began several days ago. Neuro: Level of Consciousness is awake, alert, obeys commands, Oriented to person, place, time, situation. Cardiovascular: Heart tones S1 S2 present Capillary refill < 3 seconds Patient's skin is warm and dry. Edema is 2+ to right elbow, right forearm, right wrist, right hand and right fingers Rhythm is sinus tachycardia. Respiratory: Airway is patent Respiratory effort is even, unlabored, Respiratory pattern is regular, symmetrical, Breath sounds are clear bilaterally. GI: Abdomen is round non-distended, Bowel sounds present X 4 quads. Abd is soft X 4 quads Abdomen is tender to palpation in epigastric area Reports nausea, vomiting. : No deficits noted. No signs and/or symptoms were reported regarding the genitourinary system. EENT: No deficits noted. No signs and/or symptoms were reported regarding the EENT system. Derm: Skin is intact, is healthy with good turgor, Skin is pink, warm \T\ dry. Musculoskeletal: Circulation, motion, and sensation intact. Capillary refill < 3 seconds. 13:45 Reassessment: Asked CN for assistance with IV insertion. 3 attempts by 2 ED techs. ca1 14:00 Reassessment: Patient appears in no apparent distress at this time. Patient is alert, ca1 oriented x 3, equal unlabored respirations, skin warm/dry/pink. 14:54 Reassessment: Patient appears in no apparent distress at this time. Patient and/or ca1 family updated on plan of care and expected duration. Pain level reassessed. Patient is alert, oriented x 3, equal unlabored respirations, skin warm/dry/pink. 15:10 Reassessment: PT vomited, informed Dr. Patino. ca1 15:20 Reassessment: Pt to CT scan, informed medical supply technician, oral contrast not consumed due to ca1 delayed IV insertion, hence administration of Zofran. After Zofran administration, pt vomited, administered Phenergan, waited few minutes to start taking oral contrast again. 16:04 Reassessment: Patient appears in no apparent distress at this time. Patient is alert, ca1 oriented x 3, equal unlabored respirations, skin warm/dry/pink. Pt from CT scan, went to restroom to urinate then assisted back to bed. 17:05 Reassessment: Patient appears in no apparent distress at this time. Patient and/or ca1 family updated on plan of care and expected duration. Pain level reassessed. Patient is alert, oriented x 3, equal unlabored respirations, skin warm/dry/pink. 18:00 Reassessment: Patient appears in no apparent distress at this time. Patient and/or ca1 family updated on plan of care and expected duration. Pain level reassessed. Patient is alert, oriented x 3, equal unlabored respirations, skin warm/dry/pink. Dr. Bowen at bedside. Awaiting room assignment. 18:10 Reassessment: Attempted to draw blood for cultures. No visible veins, called lab for ca1 blood culture draw. 18:30 Reassessment: Transfer ordered, awaiting acceptance. [facility] 18:50 Reassessment: Lab came and look for a vein, found a good one at the foot. Informed Dr. anibal Patino. Dr. Patino says just insert a midline and draw cultures from feet. Informed CN. 19:00 Reassessment: Patient appears in no apparent distress at this time. Patient and/or ca1 family updated on plan of care and expected duration. Pain level reassessed. 19:10 Reassessment: Pt being hospitalized here, since no bed is available at [address] 20:00 Reassessment: Patient appears in no apparent distress at this time. Patient is alert, ca1 oriented x 3, equal unlabored respirations, skin warm/dry/pink. 21:28 Reassessment: Patient appears in no apparent distress at this time. Patient and/or ca1 family updated on plan of care and expected duration. Pain level reassessed. Patient is alert, oriented x 3, equal unlabored respirations, skin warm/dry/pink. Pending room assignement. 22:00 Reassessment: Patient appears in no apparent distress at this time. Patient and/or ca1 family updated on plan of care and expected duration. Pain level reassessed. Patient is alert, oriented x 3, equal unlabored respirations, skin warm/dry/pink. Awaiting ICU bed assignment. 22:15 Reassessment: Called ICU for report. Receiving RN will call back. ca1 Vital Signs: 13:16 BP 114 / 77; Pulse 131; Resp 19; Temp 98.1(O); Pulse Ox 100% on R/A; Weight 95.25 kg; ca1 Height 5 ft. 7 in. (170.18 cm); Pain 6/10; 14:07 BP 96 / 66; Pulse 132; Resp 16; Pulse Ox 97% ; ca1 14:45 BP 121 / 89; Pulse 121; Resp 20; Pulse Ox 100% ; ca1 15:16 BP 121 / 73; Pulse 129; Resp 19; Pulse Ox 100% on R/A; ca1 16:07 BP 111 / 74; Pulse 125; Resp 16; Pulse Ox 97% on R/A; ca1 16:15 BP 103 / 80; Pulse 126; Resp 19; Pulse Ox 99% on R/A; ca1 16:30 BP 98 / 74; Pulse 128; Resp 21; Pulse Ox 99% on R/A; ca1 16:45 BP 106 / 80; Pulse 128; Resp 20; Pulse Ox 99% on R/A; ca1 17:00 BP 118 / 86; Pulse 130; Resp 20; Pulse Ox 99% on R/A; ca1 17:15 BP 101 / 76; Pulse 129; Resp 19; Pulse Ox 99% on R/A; ca1 17:30 BP 100 / 81; Pulse 130; Resp 21; Pulse Ox 99% on R/A; ca1 17:45 BP 107 / 80; Pulse 146; Resp 20; Pulse Ox 98% on R/A; ca1 18:00 BP 103 / 84; Pulse 137; Resp 20; Pulse Ox 99% on R/A; ca1 19:00 BP 105 / 67; Pulse 138; Resp 20; Pulse Ox 95% on R/A; ca1 20:00 BP 108 / 89; Pulse 131; Resp 19; Pulse Ox 100% on R/A; ca1 20:30 BP 108 / 85; Pulse 136; Resp 21; Pulse Ox 99% on R/A; ca1 21:00 BP 107 / 79; Pulse 134; Resp 21; Pulse Ox 98% on R/A; ca1 21:30 BP 109 / 81; Pulse 134; Resp 20; Pulse Ox 99% on R/A; ca1 22:13 BP 116 / 80; Pulse 140; Resp 19; Pulse Ox 100% on R/A; ca1 22:40 BP 118 / 81; Pulse 138; Resp 18; Pulse Ox 99% on R/A; ca1 13:16 Body Mass Index 32.89 (95.25 kg, 170.18 cm) ca1 ED Course: 13:05 Patient arrived in ED. iw 13:05 Hal Patino MD is Attending Physician. rn 13:09 Shania Jiang RN is Primary Nurse. ca1 13:14 Triage completed. ca1 13:16 Arm band placed on right wrist. EKG completed in triage. Results shown to MD. ca1 13:17 EKG done, by sonography technologist. reviewed by Hal Patino MD. sm3 13:18 Patient maintains SpO2 saturation greater than 95% on room air. ca1 13:18 Patient has correct armband on for positive identification. Placed in gown. Bed in low ca1 position. Call light in reach. Side rails up X 1. surveillance monitor on. Pulse ox on. NIBP on. Warm blanket given. 13:20 Missed attempt(s): 20 gauge in left antecubital area. ca1 13:30 Missed attempt(s): 22 gauge in left forearm. ca1 13:40 Missed attempt(s): 22 gauge in left hand. ca1 14:39 Initial lab(s) drawn, by me, sent to lab. Inserted saline lock: 22 gauge in left ,using iw aseptic technique. shoulder Blood collected. 15:07 Radiology exam delayed due to lab results not completed at this time. (BUN/Creatinine). jg6 15:20 Radiology exam delayed due to lab results not completed at this time. (BUN/Creatinine). jg6 15:49 CT completed. Patient tolerated procedure well. Patient moved back from CT. vm2 15:50 Abdomen In Process Unspecified. EDMS 16:55 Alex Bowen DO is Hospitalizing Provider. rn 17:35 attempted transfer to [facility], pt denied due to no capacity, per stevie. bd 17:36 attempted transfer to [facility], no interventional radiology available. per bd stevie. 18:19 Alex Bowen DO is Hospitalizing Provider. rn 19:40 First set of blood cultures drawn. Inserted 18 gauge 10 cm midline to left upper fc brachial vein on first attempt. Line with good blood return and flushes well. Done per Galen Vega RN. 22:15 No provider procedures requiring assistance completed. Patient admitted, IV remains in ca1 place. Administered Medications: 14:40 Drug: NS 0.9% 500 ml Route: IV; Rate: bolus; Site: left upper arm; ca1 15:13 Follow up: IV Status: Completed infusion ca1 14:40 Drug: Zofran 4 mg Route: IVP; Site: left upper arm; ca1 15:13 Follow up: Response: No adverse reaction; Vomiting unchanged; Vomiting unchanged, ca1 informed provider 14:40 Drug: NS 0.9% 500 ml Route: IV; Rate: bolus; Site: left upper arm; ca1 17:16 Follow up: Urine output 300 ml; Response: No adverse reaction; IV Status: Completed ca1 infusion 15:13 Drug: Phenergan 12.5 mg Route: IVP; Site: left upper arm; ca1 17:15 Follow up: Response: No adverse reaction; Nausea is decreased; Nausea is decreased, no ca1 reports of vomiting 18:10 Drug: NS 0.9% 500 ml Route: IV; Rate: bolus; Site: left upper arm; ca1 18:40 Follow up: Response: No adverse reaction; IV Status: Completed infusion ca1 19:40 Drug: vancoMYCIN 1 grams Route: IVPB; Infused Over: 2 hrs; Site: left upper arm; ca1 22:00 Follow up: Response: No adverse reaction; IV Status: Completed infusion ca1 22:38 Drug: Zosyn 3.375 grams Route: IVPB; Infused Over: 60 mins; Site: left upper arm; ca1 22:38 Follow up: IV Status: Infusion continued upon admission ca1 Output: 17:16 Urine: 300ml; Total: 300ml. ca1 Outcome: 16:56 Decision to Hospitalize by Provider. rn 17:59 ER care complete, transfer ordered by MD. rn 18:19 Decision to Hospitalize by Provider. rn 22:51 Admitted to ICU accompanied by nurse, accompanied by tech, via stretcher, room #7, on ca1 monitor, with chart, Report called to Alina Bautista RN 22:51 Condition: stable 22:51 Instructed on the need for admit. 23:25 Patient left the ED. ca1 Signatures: Dispatcher [employer] EDMS Galina Sheffield Felicia, SEVERIANO RN Lisbeth Zuluaga RN RN Hal Patino MD MD rn McGuire, Victoria 2 Beatrzi Dunaway 3 Miriam Mitchell Shania Jiang RN RN ca1 Corrections: (The following items were deleted from the chart) 13:40 13:10 Acuity: KAT 3 ca1 iw 20:08 19:40 Inserted 18 gauge 10 cm midline to left upper brachial vein on first attempt. fc Line with good blood return and flushes well. iw 20:08 19:40 First set of blood cultures drawn [facility] 22:12 18:00 Reassessment: Patient appears in no apparent distress at this time. Patient ca1 and/or family updated on plan of care and expected duration. Pain level reassessed. Patient is alert, oriented x 3, equal unlabored respirations, skin warm/dry/pink. ca1 22:15 18:40 Reassessment: Lab came and look for a vein, found a good one at the foot. ca1 Informed Dr[address] Patino. Dr. Patino says just insert a midline and draw cultures from their. ca1 22:54 22:51 Admitted to ICU accompanied by nurse, accompanied by tech, via stretcher, room ca1 #7, with chart, Report called to Alina Bautista, SEVERIANO ca1
[2019-02-08] MEDS ORDERED: PIPER/TAZO/NS 3.375gm 3.375 GM/100 ML BAG ONE (18:41)
[2019-02-08] MEDS ORDERED: VANCOMYCIN/NS 1 gm 1 GM/250 ML BAG IV ONE (18:45)
--- NOTE | 2019-02-08 21:10 | P.HP ---
Certification for Inpatient Patient admitted to: Inpatient With expected LOS: >2 Midnights Practitioner: I am a practitioner with admitting privileges, knowledge of patient current condition, hospital course, and medical plan of care. Services: Services provided to patient in accordance with Admission requirements found in Title 42 Section 412.3 of the Code of Federal Regulations Patient History Date of Service: 02/08/19 Reason for admission: hypovolemic shock History of Present Illness: Ms Spring is a 63 years old woman with history of liver cirrhosis, breast cancer , HTN, who was admitted last week ago due to ascites, she had a paracentesis, I bilieve in [facility]. Since she was discharged, she has been with nausea and vomiting, unable to keep fluids or solids down. Today, whe went to see Dr Blanton to his office for follow up. The patient was foun hypotensive and tachycardic. She was transfer to ER for further evaluation. Lab work shows normal WBC count. Hgb 10.5 mg/dl, creatinine 1.88, increased compared with 2 weeks ago. No fever or chills. CT abd/pelvis remarkable for possible loculated ascites and liver hematoma, (see CT scan report for details) Allergies No Known Allergies Allergy (Verified 11/21/18 02:52) Home medications list reviewed: Yes Home Medications: Zolpidem Tartrate [Ambien*] 10 mg PO BEDTIME PRN PRN 08/18/16 Vit D3/Folic Acid/B2/B6/B12 [Folgard Tablet] 1 each PO DAILY 11/21/18 Abemaciclib [Verzenio] 150 mg PO BID 01/16/19 Pantoprazole [Protonix Tab*] 40 mg PO DAILY 01/16/19 Metoprolol Tartrate [Lopressor*] 50 mg PO BID #60 tab 01/22/19 Ondansetron [Zofran] 4 mg PO Q6H PRN #15 tab 01/22/19 - Past Medical/Surgical History Diabetic: No -: Thyroid disease -: Breast cancer -: hypertension -: Insomnia -: Dyslipidemia -: Lumpectomy Rt -: Thyroidectomy - Family History Brother -: Hypertension Sister -: Hypertension - Social History Smoking Status: Former smoker Alcohol use: No CD- Drugs: No Caffeine use: No Place of Residence: Home Review of Systems 10-point ROS is otherwise unremarkable Physical Examination - Physical Exam General: Alert, In no apparent distress HEENT: Atraumatic, PERRLA, Mucous membr. moist/pink, EOMI, Sclerae nonicteric Neck: Supple, 2+ carotid pulse no bruit, No LAD, Without JVD or thyroid abnormality Respiratory: Clear to auscultation bilaterally, Normal air movement Cardiovascular: Regular rate/rhythm, Normal S1 S2 Gastrointestinal: Normal bowel sounds, No tenderness Musculoskeletal: No tenderness Integumentary: No rashes Neurological: Normal speech, Normal strength at 5/5 x4 extr, Normal tone, Normal affect Lymphatics: No axilla or inguinal lymphadenopathy - Studies Laboratory Data (last 24 hrs) 02/08/19 14:35: WBC 6.8, Hgb 10.5 L, Hct 31.9 L, Plt Count 284 02/08/19 14:35: Sodium 141, Potassium 4.2, BUN 18, Creatinine 1.88 H, Glucose 107 H, Total Bilirubin 0.9, AST 22, ALT 19, Alkaline Phosphatase 44 L, Lipase 99 Assessment and Plan - Problems (Diagnosis) (1) Ascites Current Visit: Yes Status: Acute Qualifiers: Ascites type: other type Qualified Code(s): R18.8 - Other ascites (2) Cirrhosis Current Visit: Yes Status: Acute Qualifiers: Hepatic cirrhosis type: unspecified hepatic cirrhosis Ascites presence: with ascites Qualified Code(s): K74.60 - Unspecified cirrhosis of liver; R18.8 - Other ascites (3) Orthostatic hypotension Current Visit: Yes Status: Acute (4) Volume depletion Current Visit: Yes Status: Acute (5) Hypertension Onset Date: 11/21/18 Current Visit: No Status: Chronic Qualifiers: Hypertension type: essential hypertension Qualified Code(s): I10 - Essential (primary) hypertension - Plan The patient will be admitted to the hospital due to tachycardia and hypotension in context of volume depletion. Will order gently IV fluid replacement, paracentesis US guided, empiric treatment with Zosyn. Attempt to transfer the patient to a tertiary facility for higher level of care was done, however, no bed available. Consult Dr Blanton. - Advance Directives Does patient have a Living Will: No Does patient have a Durable POA for Healthcare: No - Code Status/Comfort Care Code Status Assessed: Yes Code Status: Full Code
[2019-02-08] MEDS ORDERED: ONDANSETRON 4 MG/2 ML VIAL IV PRN (23:39)
[2019-02-08] MEDS ORDERED: NA CHLORIDE 0.9% 1,000 ML IV SCH (23:39)
[2019-02-09 05:52] LABS: Albumin 2.1 g/dL (3.4-5.0); Bilirubin Total 0.8 mg/dL (0.2-1.0); Potassium 3.4 mmol/L (3.5-5.1); Protein, Total 6.2 g/dL (6.4-8.2)
[2019-02-09 06:00] LABS: Absolute Lymphocytes (CBC) 1.3 K/uL (0.7-4.9); Absolute Monocytes 0.5 K/uL (0.1-1.3); Absolute Neutrophil 4.3 K/uL (1.8-8.0); Basophils % 1.4 % (0-1.3); Eosinophils % 1.2 % (0-4.4); Hematocrit 26.7 % (36.0-45.0); Lymphocytes % 20.4 % (15.3-44.8); MPV 6.8 fL (7.6-11.3); Monocytes % 8.1 % (3.3-12.3); RBC Red Blood Cell Count 2.72 M/uL (3.86-4.86)
[2019-02-09] MEDS ORDERED: NA CHLORIDE 0.9% 100 ML ONE (06:07)
[2019-02-09] MEDS ORDERED: PIPERACIL/TAZO 3.375 GM VIAL IV ONE (06:07)
[2019-02-09] MEDS: PIPER/TAZO/NS 3.375gm 3.375 GM/100 ML BAG IVPB SCH ×2 (06:23)
[2019-02-09] MEDS ORDERED: SODIUM CHLORIDE 0.9% 10ML INJ IV PRN (07:16)
[2019-02-09] MEDS ORDERED: PANTOPRAZOLE 40 MG INJ IVP SCH (09:00)
[2019-02-09 09:37] LABS: Hematocrit 28.3 % (36.0-45.0)
--- NOTE | 2019-02-09 10:19 | RAD REPORT ---
EXAM DESCRIPTION: RAD - Chest Single View - 02/09/2019 10:12 am CLINICAL HISTORY: monitor for Pulmonary edema, Hx cirrhosis Chest pain. COMPARISON: Chest Single View dated 01/19/2019; Chest Single View dated 01/15/2019; Chest Single View dated 11/20/2018; Chest Pa And Lat (2 Views) dated 01/11/2018 FINDINGS: Portable technique limits examination quality. The lungs are grossly clear. The heart is normal in size. Small left pleural effusion.Aortic atherosc lerosis. IMPRESSION: Small left pleural effusion.
--- NOTE | 2019-02-09 10:54 | P.PN ---
Subjective Date of Service: 02/09/19 Primary Care Provider: Dr. Guerrero([place]); GI-Dr. Blanton Chief Complaint: Low blood pressure Subjective: Other (Patient appears stable. Patient still tachycardic.) Physical Examination - Vital Signs Temperature: 99.1 F Blood Pressure: 99/67 Pulse: 130 Respirations: 19 Pulse Ox (%): 99 - Physical Exam General: Alert, In no apparent distress, Cooperative HEENT: Atraumatic Neck: Supple Respiratory: Clear to auscultation bilaterally, Normal air movement Cardiovascular: Abnormal pulses (Sinus tachycardia rate 130s) Gastrointestinal: Normal bowel sounds, Soft and benign, Non-distended, No tenderness, No masses, No rebound, No guarding, Ascites (Mild ascites noted) Integumentary: No erythema, No warmth, No cyanosis Neurological: Normal speech, Normal strength at 5/5 x4 extr, Normal tone, Normal affect - Studies Laboratory Data (last 24 hrs) 02/08/19 14:35: WBC 6.8, Hgb 10.5 L, Hct 31.9 L, Plt Count 284 02/08/19 14:35: Sodium 141, Potassium 4.2, BUN 18, Creatinine 1.88 H, Glucose 107 H, Total Bilirubin 0.9, AST 22, ALT 19, Alkaline Phosphatase 44 L, Lipase 99 Medications List Reviewed: Yes Assessment & Plan Discharge Plan: Transfer Plan to discharge in: 24 Hours Physician Review Additional Text: Impression: Hypotension and tachycardia likely volume depletion 16 x 5 cm loculated low-density fluid collection within the lateral aspect of the right upper quadrant compressing the right lobe of the liver medially complicated with history of liver cirrhosis and recent paracentesis to the right quadrant Small left pleural effusion Anemia of chronic disease History of breast cancer GERD with hiatal hernia Acute on Chronic renal disease, stage 3 Plan: Hypotension and tachycardia likely volume depletion: Patient received IV fluids upon admission. Will discontinue IV fluids due to the left pleural effusion and history of liver cirrhosis. Will continue to monitor closely. Tachycardia remains stable. Patient with history of hypertension and previously on beta-byron therapy. Will continue to hold blood pressure medication due to low blood pressure. Patient does not appear septic. Blood cultures obtained. Patient on IV antibiotic therapy. Pharmacy to monitor and adjust. Patient with complicated loculated fluid collection to the right upper quadrant. Etiology unknown. Differential includes hematoma, cancer, other. Patient did have recent paracentesis up in [place]. Arrangements for transfer for higher level of care including interventional radiology and hepatology to further evaluate has been initiated. Patient was to be transferred from the ER but there was no bed availability up in [place]. Patient currently in ICU awaiting bed. Case discussed at length with GI and liver specialist-Dr. Lincoln who also recommends and agrees with transfer of care to further evaluate her condition. 16 x 5 cm loculated low-density blood collection within the lateral aspect of the right upper quadrant compressing the right lobe of the liver medially complicated with history of liver cirrhosis and recent paracentesis to the right quadrant: Case discussed with GI and liver specialist. Awaiting transfer to [place] for further evaluation. Patient will need interventional radiology. Will need to further assess her condition. Differential includes hematoma, cancer verses other. Patient on IV antibiotic therapy. Pharmacy to monitor and adjust. Will monitor closely. Continue to monitor hemoglobin. Will keep the patient NPO as patient may require intervention in [place]. Small left pleural effusion: Will maintain oxygen saturations above 90%. Will monitor closely. Recent echocardiogram and cardiac stress test unremarkable. Anemia of chronic disease: Continue as above. Hemoglobin remained stable. No DVT prophylaxis at this time due to possible hematoma. Will provide SCD for DVT prophylaxis. History of breast cancer: Stable. GERD with hiatal hernia: Will provide medication. Acute on Chronic renal disease, stage 3: Overall stable. Will consult Nephrology to further evaluate. Patient may be volume depleted. IV fluids discontinued due to liver cirrhosis and pleural effusion. Will discuss with nephrology. Time Spent Managing Pts Care (In Minutes): 55
--- NOTE | 2019-02-09 11:39 | P.DS ---
Admission Date: 02/08/19 Discharge Date: 02/09/19 Primary Care Provider: Dr. Guerrero([place]); GI-Dr. Blanton Disposition: TRANSFER TO [facility] Discharge Condition: FAIR Reason for Admission: Low blood pressure Consultations: GI-Dr. Blanton Procedures: CT scan: FINDINGS: The evaluation of solid organs, vessels and bowel is limited secondary to the lack of contrast administration. 16 x 5 centimeter loculated low-density fluid collection is present within the lateral aspect of the right upper quadrant. It compresses and displaces the right lobe of the liver medially. A small to moderate amount of ascites is present within the remainder of the abdomen. A small amount of ascites is present within the pelvis. Portions of the ascites superior loculated. Spleen, pancreas, adrenals and kidneys demonstrate no acute abnormality. There is no evidence of diverticulitis. Previously described sclerotic foci within the bones is unchanged Small to moderate hiatal hernia Several mildly dilated loops of small bowel probably indicate an ileus IMPRESSION: 16 x 5 centimeter loculated low-density fluid collection within the lateral aspect of the right upper quadrant exhibits mass effect on the adjacent liver. The liver is compressed and displaced medially. Presumably this represents loculated ascites. A subcapsular hepatic hematoma which has developed since the prior CAT scan is doubtful but should be correlated with clinical history and hematocrit. Given the loculated ascites this may be malignant. CXR: FINDINGS: Portable technique limits examination quality. The lungs are grossly clear. The heart is normal in size. Small left pleural effusion.Aortic atherosclerosis. IMPRESSION: Small left pleural effusion. Medical Problem List: Hypotension and tachycardia likely volume depletion 16 x 5 cm loculated low-density fluid collection within the lateral aspect of the right upper quadrant compressing the right lobe of the liver medially complicated with history of liver cirrhosis and recent paracentesis to the right quadrant Small left pleural effusion Anemia of chronic disease History of breast cancer GERD with hiatal hernia Acute on Chronic renal disease, stage 3 Brief History of Present Illness: 63-year-old female presented to the emergency room after she was seen by her GI specialist for tachycardia and hypotension. Patient with liver cirrhosis, breast cancer. In the ER patient was evaluated. Patient with tachycardia with a rate around 140. Patient given IV fluid in the emergency room. CT scan revealed a loculated right upper quadrant fluid collection compressing the right lobe of the kidney. Transfer was initiated. No beds were available. Patient was admitted to ICU. Hospital Course: Patient presented with hypotension and tachycardia. Patient found to have some volume depletion. Patient with underlying history of liver cirrhosis. Patient had recent paracentesis up in [place]. Patient also found to have a 16 x 5 cm loculated low-density fluid collection within the lateral aspect of the right upper quadrant compressing the right lobe of the liver medially. Transfer was initiated in the Emergency room due to the complexity of her issues. Beds were not available. Case discussed with GI and hepatology. Patient was monitored Overnite in the ICU. Bed now available. Patient will be transferred for further evaluation and treatment. Patient will likely require interventional radiology to further assess the fluid collection. Hematoma versus cancer versus other will need to be further evaluated. Patient may require further intervention. Patient with small pleural effusion. This to be further monitored and addressed. Recent echocardiogram and cardiac stress test unremarkable. \ Patient with anemia of chronic disease Hemoglobin has remained stable. This will need to be monitored closely due to the fluid collection as this may be a hematoma from recent paracentesis. Patient with history of breast cancer. Patient currently on chemotherapy. Patient with GERD and hiatal hernia. Patient will continue with medication. Patient with history of hypertension. Beta-byron therapy currently on hold due to low blood pressure. This can be further monitored and addressed in [place]. Vital Signs/Physical Exam: Temp Pulse Resp BP Pulse Ox 99.1 F 130 H 19 99/67 99 02/09/19 10:58 02/09/19 10:58 02/09/19 10:58 02/09/19 10:58 02/09/19 10:58 General: Alert, In no apparent distress, Cooperative HEENT: Atraumatic Neck: Supple Respiratory: Clear to auscultation bilaterally, Normal air movement Cardiovascular: Abnormal pulses (Sinus tachycardia) Gastrointestinal: Normal bowel sounds, No tenderness, No masses, No rebound, No guarding, Ascites (Mild ascites) Musculoskeletal: No erythema, No tenderness, No warmth Integumentary: No erythema, No warmth, No cyanosis Neurological: Normal speech, Normal strength at 5/5 x4 extr, Normal tone Laboratory Data at Discharge: WBC 6.3 K/uL (4.3-10.9) 02/09/19 05:05 Hgb 9.2 g/dL (12.0-15.0) L 02/09/19 09:22 Hct 28.3 % (36.0-45.0) L 02/09/19 09:22 Plt Count 254 K/uL (152-406) 02/09/19 05:05 Sodium 142 mmol/L (136-145) 02/09/19 05:05 Potassium 3.4 mmol/L (3.5-5.1) L 02/09/19 05:05 BUN 17 mg/dL (7-18) 02/09/19 05:05 Creatinine 1.93 mg/dL (0.55-1.3) H 02/09/19 05:05 Glucose 119 mg/dL (74-106) H 02/09/19 05:05 Total Bilirubin 0.8 mg/dL (0.2-1.0) 02/09/19 05:05 AST 19 U/L (15-37) 02/09/19 05:05 ALT 18 U/L (12-78) 02/09/19 05:05 Alkaline Phosphatase 39 U/L (45-117) L 02/09/19 05:05 Lipase 99 U/L (73-393) 02/08/19 14:35 Home Medications: Zolpidem Tartrate [Ambien*] 10 mg PO BEDTIME PRN PRN 08/18/16 Vit D3/Folic Acid/B2/B6/B12 [Folgard Tablet] 1 each PO DAILY 11/21/18 Abemaciclib [Verzenio] 150 mg PO BID 01/16/19 Pantoprazole [Protonix Tab*] 40 mg PO DAILY 01/16/19 Metoprolol Tartrate [Lopressor*] 50 mg PO BID #60 tab 01/22/19 Ondansetron [Zofran] 4 mg PO Q6H PRN #15 tab 01/22/19 Patient Discharge Instructions: Patient to be discharge to [facility] for further evaluation by interventional radiology and hepatology Diet: NPO Activity: Bedrest Time spent managing pt's care (in minutes): 55
[2019-02-09] MEDS ORDERED: PIPER/TAZO/NS 3.375gm 3.375 GM/100 ML BAG IVPB SCH (17:00)
--- NOTE | 2019-02-14 11:15 | EKG ---
Test Date: 2019-02-08 Test Time: 13:10:43 Tank Filler: HETAL MEASUREMENT RESULTS: Intervals: Rate: 131 LA: 128 QRSD: 72 QT: 302 QTc: 445 [place]: P: 59 LA: 128 QRS: 85 T: 23 INTERPRETIVE STATEMENTS: Sinus tachycardia Otherwise normal ECG Compared to ECG 01/19/2019 14:17:10 T-wave abnormality no longer present Possible ischemia no longer present Electronically Signed On 02-08-19 16:58:59 CDT by Jean-Paul Calderon
== END 2019-02-09 11:45 | disposition short-term general hospital (02) | DRG 315 ==
LOC: ER 12:59 → ERHOLD 20:59 → 3RD-ICU 22:51
PROVIDERS: ADMIT Internal Medicine; ATTEND Internal Medicine
DX: I95.9 Hypotension, unspecified (principal); J90 Pleural effusion, not elsewhere classified; R18.8 Other ascites; N17.9 Acute kidney failure, unspecified; E86.9 Volume depletion, unspecified; R00.0 Tachycardia, unspecified; D64.9 Anemia, unspecified; K21.9 Gastro-esophageal reflux disease without esophagitis; K44.9 Diaphragmatic hernia without obstruction or gangrene; I10 Essential (primary) hypertension; I12.9 Hypertensive chronic kidney disease with stage 1 through stage 4 chronic kidney disease, or unspecified chronic kidney disease; N18.3 Chronic kidney disease, stage 3 (moderate); Z85.3 Personal history of malignant neoplasm of breast
CPT/HCPCS: 36415; 71045; 74176; 80048; 80053; 80076; 83690; 83880; 85014; 85018; 85025; 87040; 87493; 93005; 96361; 96365; 96366; 96375; 99285; C9113; J2405; J2543; J2550; J3370; J7030

== ENCOUNTER 2019-03-15 08:17 | Day surgery (SDC) | payer OTHER ==
--- OUTSIDE RECORDS SUMMARY | 2019-03-15 08:22 | XMS REPORT | Clinical Summary ---
:1955 Author Organization [facility] Address [address] [place] [address] Care Team Providers Name Role Phone Michelle [...] INFLUENZA VACCINE 06/08/2019 Results Not on fileafter 03/14/2018 Insurance Payer Benefit Plan / Group Subscriber ID Type Phone Address MEDICARE MEDICARE PART A AND B xxxxxxxxxx Medicare [place], [place] MEDICAID MEDICAID xxxxxxxxx Medicaid Advance Directives Patient has advance care planning documents on file. For more information, please contact:Don [id number] [place] [address]
--- OUTSIDE RECORDS SUMMARY | 2019-03-15 08:23 | XMS REPORT | Clinical Summary ---
:1955 Author Organization [facility] Address [address] [place] [address] Care Team Providers Name Role Phone Pcp, [...] Active (PROTONIX) 40 MG mouth daily. tablet ondansetron Take 4 mg by 0 01/22/2019 Active (ZOFRAN-ODT) 4 MG mouth every 6 disintegrating (six) hours as tablet needed DISSOLVE FOR NAUSEA AND VOMITING. ALPRAZolam (XANAX) Take 0.5 mg by 0 Active 0.5 MG mouth 3 tabletIndications: (three) times anxiety daily as needed for Anxiety. acetaminophen Take 2 tablets 30 tablet 0 02/20/2019 Active (TYLENOL) 325 MG (650 mg total) 0 tablet by mouth every 6 (six) hours as needed for up to 360 days. allopurinol Take 1 tablet 30 tablet 0 02/21/2019 Active (ZYLOPRIM) 100 MG (100 mg total) 0 tablet by mouth daily. Lactobacillus Take 1 tablet 30 tablet 0 02/20/2019 Active acidoph-L.bulgar by mouth 2 (FLORANEX) 1 million (two) times cell Tab per tablet daily. abemaciclib 150 mg Take 150 mg by 0 Discontinued Tab mouth 2 (two) 9 times daily. metroNIDAZOLE Take 500 mg by 0 01/09/2019 Discontinued (FLAGYL) 500 MG mouth every 8 9 tablet (eight) hours. sertraline (ZOLOFT) Take 50 mg by 12 12/15/2018 Discontinued 50 MG tablet mouth daily. 9 metoprolol Take 25 mg by 4 01/09/2019 Discontinued (TOPROL-XL) 25 MG 24 mouth daily. 9 hr tablet loperamide (IMODIUM) Take 1 capsule 30 capsule 0 02/20/2019 2 mg capsule (2 mg total) 9 by mouth 3 (three) times daily as needed for Diarrhea for up to 10 days. ondansetron (ZOFRAN) Take 1 tablet 30 tablet 0 02/20/2019 8 MG tablet (8 mg total) 9 by mouth every 8 (eight) hours as needed for Nausea for up to 7 days. Active Problems Problem Noted Date Tachycardia 02/10/2019 [place] (acute kidney injury) 02/10/2019 Cirrhosis of liver 02/10/2019 Hypodense mass of liver 02/09/2019 Abdominal distension 01/31/2019 Nausea and vomiting 01/31/2019 Weight loss 01/31/2019 Malignant ascites 01/31/2019 Encounters Date Type Specialty Care Team Description 02/16/2019 Travel 02/09/2019 - Hospital Encounter Oncology [facility], Abdominal distension; 02/20/2019 Ramon Kay MD CARLEY (acute kidney injury) (HCC); Srikanth Arzate MD Malignant ascites; [place], Tachycardia; MD [place] Weight loss Erika Turpin MD 02/09/2019 Orders Only General Internal Medicine 02/01/2019 Travel 01/31/2019 - Hospital Encounter General Internal Kassie Lovett Intractable vomiting with nausea, unspecified vomiting type; 02/03/2019 Medicine MD Nadiya Abdominal distension; Rosina Wolfe Other ascites; Lou Oconnell, Weight loss Mary Farrar MD Shiekh Sroujieh, Krysten Yanez MD after 03/14/2018 Family History Medical History Relation Name Comments [...] Vital Sign Reading Time Taken Blood Pressure 126/69 02/20/2019 4:00 PM CDT Pulse 110 02/20/2019 4:00 PM CDT Temperature 37.5 C (99.5 F) 02/20/2019 4:00 PM CDT Respiratory Rate 18 02/20/2019 4:00 PM CDT Oxygen Saturation 100% 02/20/2019 4:00 PM CDT Inhaled Oxygen Concentration - - Weight 95.5 kg (210 lb 8.6 oz) 02/16/2019 11:10 AM CDT Height 170.2 cm (5' 7") 02/16/2019 11:10 AM CDT Body Mass Index 32.98 02/16/2019 11:10 AM CDT Plan of Treatment Not on file Procedures Procedure Name Priority Date/Time Associated Comments Diagnosis RHYTHM STRIP - SCAN 02/22/2019 3:51 PM CDT REPORT OF PROCEDURE - 02/22/2019 3:51 ENDOSCOPY SCAN PM CDT (CELLAVISION MANUAL Routine 02/20/2019 5:26 Results for this DIFF) AM CDT procedure are in the results section. CBC W/PLT COUNT & Routine 02/20/2019 5:26 Results for this AUTO DIFFERENTIAL AM CDT procedure are in the results section. HEPATIC FUNCTION Routine 02/20/2019 5:26 Results for this PANEL AM CDT procedure are in the results section. PHOSPHORUS Routine 02/20/2019 5:26 Results for this AM CDT procedure are in the results section. MAGNESIUM Routine 02/20/2019 5:26 Results for this AM CDT procedure are in the results section. BASIC METABOLIC PANEL Routine 02/20/2019 5:26 Results for this (7) AM CDT procedure are in the results section. CBC W/PLT COUNT & Routine 02/20/2019 5:26 Results for this AUTO DIFFERENTIAL AM CDT procedure are in the results section. CREATINE KINASE (CK) Routine 02/20/2019 5:26 Results for this AM CDT procedure are in the results section. TRANSFUSION SERVICE 02/19/2019 6:00 REPORT - SCAN PM CDT CBC W/PLT COUNT & Routine 02/19/2019 6:31 Results for this AUTO DIFFERENTIAL AM CDT procedure are in the results section. HEPATIC FUNCTION Routine 02/19/2019 6:31 Results for this PANEL AM CDT procedure are in the results section. PHOSPHORUS Routine 02/19/2019 6:31 Results for this AM CDT procedure are in the results section. MAGNESIUM Routine 02/19/2019 6:31 Results for this AM CDT procedure are in the results section. CBC W/PLT COUNT & Routine 02/19/2019 6:31 Results for this AUTO DIFFERENTIAL AM CDT procedure are in the results section. BASIC METABOLIC PANEL Routine 02/19/2019 6:31 Results for this (7) AM CDT procedure are in the results section. PREPARE LEUKO-REDUCED Routine 02/18/2019 11:54 Results for this RBC PM CDT procedure are in the results section. TRANSFUSION SERVICE 02/18/2019 6:01 REPORT - SCAN PM CDT US PARACENTESIS STAT 02/18/2019 5:38 Results for this PM CDT procedure are in the results section. CBC W/PLT COUNT & Routine 02/18/2019 6:27 Results for this AUTO DIFFERENTIAL AM CDT procedure are in the results section. HEPATIC FUNCTION Routine 02/18/2019 6:27 Results for this PANEL AM CDT procedure are in the results section. PHOSPHORUS Routine 02/18/2019 6:27 Results for this AM CDT procedure are in the results section. MAGNESIUM Routine 02/18/2019 6:27 Results for this AM CDT procedure are in the results section. CBC W/PLT COUNT & Routine 02/18/2019 6:27 Results for this AUTO DIFFERENTIAL AM CDT procedure are in the results section. PT/APTT Routine 02/18/2019 6:27 Results for this AM CDT procedure are in the results section. BASIC METABOLIC PANEL Routine 02/18/2019 6:27 Results for this (7) AM CDT procedure are in the results section. ECG 12-LEAD Routine 02/18/2019 5:09 AM CDT Procedure Note - Interface, External Ris In - 02/18/2019 6:30 AM CDT Ventricular Rate 121 BPM Atrial Rate 121 BPM P-R Interval 144 ms QRS Duration 74 ms Q-T Interval 342 ms QTC Calculation(Bazett) 485 ms P Broughton 45 degrees R Broughton 59 degrees T Broughton 41 degrees Sinus tachycardia Otherwise normal ECG When compared with ECG of 16-FEB-2019 09:02, No significant change was found ECG 12-LEAD STAT 02/18/2019 5:09 AM CDT TRANSFUSE LEUKO-REDUCED RED Routine 02/17/2019 5:47 PM CDT BLOOD CELLS TYPE AND SCREEN, AUTOMATED Routine 02/17/2019 12:01 PM CDT CBC W/PLT COUNT & AUTO Routine 02/17/2019 7:48 AM CDT Results for this DIFFERENTIAL procedure are in the results section. HEPATIC FUNCTION PANEL Routine 02/17/2019 7:48 AM CDT PHOSPHORUS Routine 02/17/2019 7:48 AM CDT MAGNESIUM Routine 02/17/2019 7:48 AM CDT BASIC METABOLIC PANEL (7) Routine 02/17/2019 7:48 AM CDT URIC ACID Routine 02/17/2019 7:48 AM CDT COMPREHENSIVE METABOLIC Routine 02/17/2019 7:48 AM CDT Results for this PANEL procedure are in the results section. CALCIUM, IONIZED Routine 02/17/2019 7:48 AM CDT CBC W/PLT COUNT & AUTO Routine 02/17/2019 7:48 AM CDT Results for this DIFFERENTIAL procedure are in the results section. C. DIFFICILE GDH TOXIN Routine 02/16/2019 5:52 PM CDT ECG 12-LEAD Routine 02/16/2019 9:02 AM CDT (MANUAL DIFFERENTIAL) Routine 02/16/2019 5:33 AM CDT CBC W/PLT COUNT & AUTO Routine 02/16/2019 5:33 AM CDT Results for this DIFFERENTIAL procedure are in the results section. HEPATIC FUNCTION PANEL Routine 02/16/2019 5:33 AM CDT PHOSPHORUS Routine 02/16/2019 5:33 AM CDT MAGNESIUM Routine 02/16/2019 5:33 AM CDT BASIC METABOLIC PANEL (7) Routine 02/16/2019 5:33 AM CDT CBC W/PLT COUNT & AUTO Routine 02/16/2019 5:33 AM CDT Results for this DIFFERENTIAL procedure are in the results section. COMPREHENSIVE METABOLIC Routine 02/16/2019 5:33 AM CDT Results for this PANEL procedure are in the results section. CALCIUM, IONIZED Routine 02/16/2019 5:33 AM CDT XR CHEST 1 VIEW STAT 02/15/2019 8:25 PM CDT Results for this PORTABLE/BEDSIDE procedure are in the results section. PROTEIN, RANDOM URINE Routine 02/15/2019 5:57 AM CDT CREATININE, RANDOM URINE Routine 02/15/2019 5:57 AM CDT (CELLAVISION MANUAL DIFF) Routine 02/15/2019 5:29 AM CDT CBC W/PLT COUNT & AUTO Routine 02/15/2019 5:29 AM CDT Results for this DIFFERENTIAL procedure are in the results section. CBC W/PLT COUNT & AUTO Routine 02/15/2019 5:29 AM CDT Results for this DIFFERENTIAL procedure are in the results section. HEPATIC FUNCTION PANEL Routine 02/15/2019 5:29 AM CDT PHOSPHORUS Routine 02/15/2019 5:29 AM CDT MAGNESIUM Routine 02/15/2019 5:29 AM CDT CBC W/PLT COUNT & AUTO Routine 02/15/2019 5:29 AM CDT Results for this DIFFERENTIAL procedure are in the results section. CALCIUM, IONIZED Routine 02/15/2019 5:29 AM CDT COMPREHENSIVE METABOLIC Routine 02/15/2019 5:29 AM CDT Results for this PANEL procedure are in the results section. HEPATIC FUNCTION PANEL Routine 02/15/2019 5:29 AM CDT CBC W/PLT COUNT & AUTO Routine 02/15/2019 5:29 AM CDT Results for this DIFFERENTIAL procedure are in the results section. HEMOGLOBIN AND HEMATOCRIT Routine 02/14/2019 12:53 PM CDT CBC W/PLT COUNT & AUTO Routine 02/14/2019 5:22 AM CDT Results for this DIFFERENTIAL procedure are in the results section. PHOSPHORUS Routine 02/14/2019 5:22 AM CDT MAGNESIUM Routine 02/14/2019 5:22 AM CDT CBC W/PLT COUNT & AUTO Routine 02/14/2019 5:22 AM CDT Results for this DIFFERENTIAL procedure are in the results section. COMPREHENSIVE METABOLIC Routine 02/14/2019 5:22 AM CDT Results for this PANEL procedure are in the results section. CALCIUM, IONIZED Routine 02/14/2019 5:22 AM CDT ECHOCARDIOGRAM REPORT - 02/13/2019 9:11 PM CDT SCAN 2D ECHO W/ DOPPLER Routine 02/13/2019 1:10 PM CDT Results for this (CW/PW/COLOR) procedure are in the results section. XR CHEST 1 VIEW Routine 02/13/2019 11:33 AM CDT Results for this PORTABLE/BEDSIDE procedure are in the results section. CBC W/PLT COUNT & AUTO Routine 02/13/2019 10:03 AM CDT Results for this DIFFERENTIAL procedure are in the results section. PHOSPHORUS Routine 02/13/2019 10:03 AM CDT MAGNESIUM Routine 02/13/2019 10:03 AM CDT CREATINE KINASE (CK) Routine 02/13/2019 10:03 AM CDT B-TYPE NATRIURETIC FACTOR Routine 02/13/2019 10:03 AM CDT Results for this (BNP) procedure are in the results section. CBC W/PLT COUNT & AUTO Routine 02/13/2019 10:03 AM CDT Results for this DIFFERENTIAL procedure are in the results section. COMPREHENSIVE METABOLIC Routine 02/13/2019 10:03 AM CDT Results for this PANEL procedure are in the results section. CALCIUM, IONIZED Routine 02/13/2019 10:03 AM CDT HEPATIC FUNCTION PANEL Routine 02/13/2019 10:03 AM CDT BASIC METABOLIC PANEL (7) Routine 02/13/2019 10:03 AM CDT RHYTHM STRIP - SCAN 02/13/2019 9:00 AM CDT CBC W/PLT COUNT & AUTO Routine 02/12/2019 6:00 AM CDT Results for this DIFFERENTIAL procedure are in the results section. PHOSPHORUS Routine 02/12/2019 6:00 AM CDT MAGNESIUM Routine 02/12/2019 6:00 AM CDT CBC W/PLT COUNT & AUTO Routine 02/12/2019 6:00 AM CDT Results for this DIFFERENTIAL procedure are in the results section. COMPREHENSIVE METABOLIC Routine 02/12/2019 6:00 AM CDT Results for this PANEL procedure are in the results section. CALCIUM, IONIZED Routine 02/12/2019 6:00 AM CDT PERIPHERAL VASCULAR REPORT 02/11/2019 9:11 PM CDT - SCAN CBC W/PLT COUNT & AUTO Routine 02/11/2019 4:46 PM CDT Results for this DIFFERENTIAL procedure are in the results section. CBC W/PLT COUNT & AUTO Routine 02/11/2019 4:46 PM CDT Results for this DIFFERENTIAL procedure are in the results section. B-TYPE NATRIURETIC FACTOR Routine 02/11/2019 4:46 PM CDT Results for this (BNP) procedure are in the results section. CT ABDOMEN/PELVIS WITHOUT STAT 02/11/2019 3:25 PM CDT Results for this IV CONTRAST procedure are in the results section. TRANSFUSION SERVICE REPORT 02/10/2019 5:54 PM CDT - SCAN VENOUS DOPPLER ARMS Routine 02/10/2019 3:00 PM CDT Results for this BILATERAL procedure are in the results section. VENOUS DOPPLER LEGS Routine 02/10/2019 3:00 PM CDT Results for this BILATERAL procedure are in the results section. CBC W/PLT COUNT & AUTO Routine 02/10/2019 3:53 AM CDT Results for this DIFFERENTIAL procedure are in the results section. HEPATIC FUNCTION PANEL Routine 02/10/2019 3:53 AM CDT PHOSPHORUS Routine 02/10/2019 3:53 AM CDT MAGNESIUM Routine 02/10/2019 3:53 AM CDT BASIC METABOLIC PANEL (7) Routine 02/10/2019 3:53 AM CDT CBC W/PLT COUNT & AUTO Routine 02/10/2019 3:53 AM CDT Results for this DIFFERENTIAL procedure are in the results section. ANTI-MITOCHONDRIAL AB, Routine 02/10/2019 3:53 AM CDT REFLEX TO TITER ACTIN (SMOOTH MUSCLE) Routine 02/10/2019 3:53 AM CDT Results for this ANTIBODY, IGG procedure are in the results section. ABORH, MANUAL STAT 02/09/2019 6:14 PM CDT CARROL TITER AND PATTERN Routine 02/09/2019 6:14 PM CDT GAMMA GLUTAMYL TRANSFERASE Routine 02/09/2019 6:14 PM CDT Results for this (GGT) procedure are in the results section. IMMUNOGLOBULIN G (IGG) Routine 02/09/2019 6:14 PM CDT HEPATITIS C ANTIBODY Routine 02/09/2019 6:14 PM CDT HEPATITIS B SURFACE ANTIGEN Routine 02/09/2019 6:14 PM CDT HEPATITIS B SURFACE Routine 02/09/2019 6:14 PM CDT Results for this ANTIBODY procedure are in the results section. HEPATITIS A ANTIBODY, IGG Routine 02/09/2019 6:14 PM CDT FERRITIN Routine 02/09/2019 6:14 PM CDT IRON, TIBC, % SAT. (WITHOUT Routine 02/09/2019 6:14 PM CDT Results for this FERRITIN) procedure are in the results section. ANTI-NUCLEAR ANTIBODY (CARROL) Routine 02/09/2019 6:14 PM CDT US ABDOMINAL WITH DOPPLER STAT 02/09/2019 5:45 PM CDT CYTOLOGY AP Routine 02/09/2019 4:00 PM CDT BODY FLUID CULTURE + GRAM Routine 02/09/2019 4:00 PM CDT Results for this STAIN procedure are in the results section. ALBUMIN, BODY FLUID Routine 02/09/2019 3:59 PM CDT LACTATE DEHYDROGENASE Routine 02/09/2019 3:59 PM CDT Results for this (LDH), BODY FLUID procedure are in the results section. BODY FLUID CELL COUNT WITH Routine 02/09/2019 3:59 PM CDT Results for this DIFFERENTIAL procedure are in the results section. URINALYSIS W/ REFLEX URINE Routine 02/09/2019 3:35 PM CDT Results for this CULTURE procedure are in the results section. UREA NITROGEN, RANDOM URINE Routine 02/09/2019 3:35 PM CDT CREATININE, RANDOM URINE Routine 02/09/2019 3:35 PM CDT SODIUM, RANDOM URINE Routine 02/09/2019 3:35 PM CDT URINE CULTURE Routine 02/09/2019 3:35 PM CDT XR CHEST 1 VIEW Routine 02/09/2019 3:03 PM CDT Results for this PORTABLE/BEDSIDE procedure are in the results section. BLOOD CULTURE Routine 02/09/2019 2:54 PM CDT CBC W/PLT COUNT & AUTO Routine 02/09/2019 2:53 PM CDT Results for this DIFFERENTIAL procedure are in the results section. TYPE AND SCREEN, AUTOMATED Routine 02/09/2019 2:53 PM CDT PROCALCITONIN STAT 02/09/2019 2:53 PM CDT B-TYPE NATRIURETIC FACTOR Routine 02/09/2019 2:53 PM CDT Results for this (BNP) procedure are in the results section. TROPONIN I Routine 02/09/2019 2:53 PM CDT AMMONIA Routine 02/09/2019 2:53 PM CDT LACTIC ACID, VENOUS STAT 02/09/2019 2:53 PM CDT FIBRINOGEN Routine 02/09/2019 2:53 PM CDT PROTHROMBIN TIME/INR Routine 02/09/2019 2:53 PM CDT HEPATIC FUNCTION PANEL Routine 02/09/2019 2:53 PM CDT BASIC METABOLIC PANEL (7) Routine 02/09/2019 2:53 PM CDT CBC W/PLT COUNT & AUTO Routine 02/09/2019 2:53 PM CDT Results for this DIFFERENTIAL procedure are in the results section. ECG 12-LEAD Routine 02/09/2019 1:58 PM CDT ECG 12-LEAD Routine 02/09/2019 1:58 PM CDT Procedure Note - Interface, External Ris In - 02/09/2019 2:09 PM CDT Ventricular Rate 121 BPM Atrial Rate 121 BPM P-R Interval 140 ms QRS Duration 72 ms Q-T Interval 320 ms QTC Calculation(Bazett) 454 ms P Broughton 28 degrees R Broughton 40 degrees T Broughton 20 degrees Sinus tachycardia Nonspecific T wave abnormality Abnormal ECG When compared with ECG of 09-FEB-2019 13:57, No significant change was found ECG 12-LEAD Routine 02/09/2019 1:57 PM CDT ECG 12-LEAD Routine 02/09/2019 1:57 PM CDT Procedure Note - Interface, External Ris In - 02/09/2019 2:08 PM CDT Ventricular Rate 119 BPM Atrial Rate 119 BPM P-R Interval 130 ms QRS Duration 72 ms Q-T Interval 332 ms QTC Calculation(Bazett) 467 ms P Broughton 31 degrees R Broughton 40 degrees T Broughton 24 degrees Sinus tachycardia Otherwise normal ECG No previous ECGs available C. DIFFICILE GDH TOXIN Routine 02/02/2019 1:36 PM CDT STOOL PATH CHARGE Routine 02/02/2019 1:35 PM CDT SHIGA TOXIN SCREEN Routine 02/02/2019 1:35 PM CDT STOOL CULTURE + SHIGA Routine 02/02/2019 1:35 PM CDT Results for this TOXIN procedure are in the results section. CBC W/PLT COUNT & AUTO Routine 02/02/2019 12:33 PM CDT Results for this DIFFERENTIAL procedure are in the results section. CBC W/PLT COUNT & AUTO Routine 02/02/2019 12:33 PM CDT Results for this DIFFERENTIAL procedure are in the results section. MAGNESIUM Routine 02/02/2019 12:33 PM CDT BASIC METABOLIC PANEL (7) Routine 02/02/2019 12:33 PM CDT HEPATIC FUNCTION PANEL Routine 02/02/2019 12:33 PM CDT US ABDOMINAL WITH DOPPLER Routine 02/02/2019 6:17 AM CDT US PARACENTESIS Routine 02/01/2019 5:05 PM CDT ALBUMIN, BODY FLUID Routine 02/01/2019 4:55 PM CDT PROTEIN, BODY FLUID Routine 02/01/2019 4:55 PM CDT BODY FLUID CULTURE + GRAM Routine 02/01/2019 4:55 PM CDT Results for this STAIN procedure are in the results section. BODY FLUID CELL COUNT WITH Routine 02/01/2019 4:55 PM CDT Results for this DIFFERENTIAL procedure are in the results section. CYTOLOGY AP Routine 02/01/2019 4:54 PM CDT PROTHROMBIN TIME/INR Routine 02/01/2019 12:20 PM CDT CBC (HEMOGRAM ONLY) Routine 02/01/2019 12:20 PM CDT MAGNESIUM Routine 02/01/2019 12:20 PM CDT BASIC METABOLIC PANEL (7) Routine 02/01/2019 12:20 PM CDT HEPATIC FUNCTION PANEL Routine 02/01/2019 12:20 PM CDT after 03/14/2018 Results RHYTHM STRIP - SCAN (02/22/2019 3:51 PM CDT)Only the most recent of2 resultswithin the time period is included. Narrative Performed At EKG-SCANNED (02/22/2019 3:51 PM CDT) Narrative Performed At Manual Differential (02/20/2019 5:26 AM CDT)Only the most recent of2 resultswithin the time period is included. % Neutros 86 % [facility] % Lymphs 7 % [facility] % Monos 1 % [facility] % [place] 3 (H) 0 - 0 % [facility] % Bands 3 0 - 10 % [facility] # Neutros 4.39 1.56 - 6.13 K/ul [facility] # Lymphs 0.36 (L) 1.18 - 3.74 K/ul [facility] # Monos 0.05 (L) 0.24 - 0.36 K/uL [facility] # Metamyelo 0.15 (H) 0.00 - 0.00 K/uL [facility] # Bands 0.15 0.00 - 0.80 K/uL [facility] Total Counted 100 [facility] Smudge Cells Present [facility] Large Platelet Present [facility] Anisocytosis 1+ few [facility] Poikilocytes 1+ few [facility] Schistocytes 1+ few [facility] Elliptocytes 2+ moderate [facility] [place] Cells 2+ moderate [facility] Artifact Present [facility] Platelet Conc Adequate [facility] Specimen Blood Narrative Performed At Received comment: [facility] User comments: Slide comments: WBC: SEGMENTED WITH TOXIC GRANULATION PRESENT Performing Organization Address City/State/Zipcode Phone Number [facility] [address] [place] [address] CENTER CBC with platelet count + automated diff (02/20/2019 5:26 AM CDT)Only the most recent of14 resultswithin the time period is included. WBC 5.1 3.5 - 10.5 K/L [facility] RBC 2.77 (L) 3.93 - 5.22 M/L [facility] Hemoglobin 8.4 (L) 11.2 - 15.7 GM/DL [facility] Hematocrit 26.7 (L) 34.1 - 44.9 % [facility] MCV 96.4 (H) 79.4 - 94.8 fL [facility] MCH 30.3 25.6 - 32.2 pg [facility] MCHC 31.5 (L) 32.2 - 35.5 GM/DL [facility] RDW 15.5 (H) 11.7 - 14.4 % [facility] Platelets 179 150 - 450 K/CU MM [facility] MPV 10.2 9.4 - 12.3 fL [facility] nRBC 0 0 - 0 /100 WBC [facility] Specimen Blood Performing Organization Address City/[facility]/Zipcode Phone Number [address] [address] CENTER Phosphorus (02/20/2019 5:26 AM CDT)Only the most recent of10 resultswithin the time period is included. Phosphorus 1.9 (L) 2.3 - 4.7 mg/dL [facility] Specimen Blood Performing Organization Address City/[facility]/Zipcode Phone Number [address] [address] CENTER Magnesium (02/20/2019 5:26 AM CDT)Only the most recent of12 resultswithin the time period is included. Magnesium 1.5 (L) 1.6 - 2.6 mg/dL [facility] Specimen Blood Performing Organization Address City/[facility]/Zipcode Phone Number [address] [phone] CENTER Creatine Kinase (CK) (02/20/2019 5:26 AM CDT)Only the most recent of2 resultswithin the time period is included. Total CK 39 29 - 200 U/L [facility] Specimen Blood Performing Organization Address City/[facility] Phone Number [address] [address] [place] Hepatic function panel (02/20/2019 5:26 AM CDT)Only the most recent of12 resultswithin the time period is included. Protein, Total 5.4 (L) 6.0 - 8.3 gm/dL [facility] Albumin 2.9 (L) 3.5 - 5.0 g/dL [facility] Total Bilirubin 1.0 0.2 - 1.2 mg/dL [facility] Bilirubin, Direct 0.6 (H) 0.1 - 0.5 mg/dL [facility] Alkaline Phosphatase 47 40 - 150 U/L [facility] AST 44 (H) 5 - 34 U/L [facility] ALT 22 6 - 55 U/L [facility] Specimen Blood Performing Organization Address City/[facility] Phone Number [address] [address] [place] Basic Metabolic Panel (02/20/2019 5:26 AM CDT)Only the most recent of10 resultswithin the time period is included. Sodium 140 136 - 145 meq/L [facility] Potassium 3.4 (L) 3.5 - 5.1 meq/L [facility] Chloride 107 98 - 107 meq/L [facility] CO2 26 22 - 29 meq/L [facility] BUN 14 7 - 21 mg/dL [facility] Creatinine 1.71 (H) 0.57 - 1.25 mg/dL [facility] Glucose 104 70 - 105 mg/dL [facility] Calcium 7.8 (L) 8.4 - 10.2 mg/dL [facility] EGFR 37Comment: ESTIMATED GFR IS mL/min/1.73 sq m [facility] NOT ACCURATE CREATININE MEDICAL CENTER CLEARANCE IN PREDICTING GLOMERULAR FILTRATION RATE. ESTIMATED GFR IS NOT APPLICABLE FOR DIALYSIS PATIENTS. Specimen Blood Performing Organization Address City/State/Zipcode Phone Number [place] [phone] [place] [address] CENTER TRANSFUSION SERVICE REPORT - SCAN (02/19/2019 6:00 PM CDT)Only the most recent of3 resultswithin the time period is included. Narrative Performed At Prepare Leuko-Red RBC (02/18/2019 11:54 PM CDT) CROSSMATCH COMPATIBLE [employer] TX Unit ABO O Pos [employer] TX UNIT NUMBER [id number] [employer] TX Status TX_TIMEINCHART [employer] TX Blood Bank Product RED BLOOD CELLS [employer] [place] PRODUCT CODE [id number] [employer] [place] Specimen Other Performing Organization Address City/[facility] Phone Number [employer] [place] US paracentesis (02/18/2019 5:38 PM CDT)Only the most recent of2 resultswithin the time period is included. Specimen Narrative Performed At FINAL REPORT Press About Us Ultrasound-guided paracentesis. Clinical History: Ascites Informed consent was obtained from the patient and the risks of the procedure were explained including bleeding, infection, bowel perforation and visceral injury. Sedation: 1% Xylocaine was used as local sedation. Conscious sedation protocol was not utilized as no systemic analgesia was administered. Technique: Using sterile technique, ultrasound guidance and a 5 Venezuelan coaxial needle, a single pass right lower quadrant paracentesis was performed.The inner needle was removed and the plastic catheter was left in place and connected through sterile tubing to an evacuated container.The procedure yielded 3600 cc of clear yellow fluid. The catheter was then removed.No immediate complications developed. No labs were ordered,Purple and red top test tubes were sent to the lab to be stored for 7 days in the event that labs are required. Estimated blood loss: None Patient disposition: The patient was asymptomatic at the end of the exam. Impression: Successful paracentesis yielding 3600 cc of fluid Signed: Brian Segundo MD Report Verified Date/Time:02/18/2019 17:56:45 Reading Location: [facility] C0[facility] Ortho Consult Reading Room Procedure Note Interface, External Ris In - 02/18/2019 5:58 PM CDT FINAL REPORT Ultrasound-guided paracentesis. Clinical History: Ascites Informed consent was obtained from the patient and the risks of the procedure were explained including bleeding, infection, bowel perforation and visceral injury. Sedation: 1% Xylocaine was used as local sedation. Conscious sedation protocol was not utilized as no systemic analgesia was administered. Technique: Using sterile technique, ultrasound guidance and a 5 Venezuelan coaxial needle, a single pass right lower quadrant paracentesis was performed. The inner needle was removed and the plastic catheter was left in place and connected through sterile tubing to an evacuated container. The procedure yielded 3600 cc of clear yellow fluid. The catheter was then removed. No immediate complications developed. No labs were ordered, Purple and red top test tubes were sent to the lab to be stored for 7 days in the event that labs are required. Estimated blood loss: None Patient disposition: The patient was asymptomatic at the end of the exam. Impression: Successful paracentesis yielding 3600 cc of fluid Signed: Brian Segundo MD Report Verified Date/Time: 02/18/2019 17:56:45 Reading Location: [facility] C013X Ortho Consult Reading Room Performing Organization Address City/State/Zipcode Phone Number [facility] PT/aPTT (02/18/2019 6:27 AM CDT) Protime 15.1 (H) 11.7 - 14.7 seconds [facility] INR 1.2 <=5.9 [facility] PTT 31.5 22.5 - 36.0 seconds [facility] Specimen Blood Narrative Performed At RECOMMENDED COUMADIN/WARFARIN INR THERAPY [facility] RANGES STANDARD DOSE: 2.0 - 3.0 Includes: PROPHYLAXIS for venous thrombosis, systemic embolization; TREATMENT for venous thrombosis and/or pulmonary embolus. HIGH RISK: Target INR is 2.5-3.5 for patients with mechanical heart valves. Forparacentesis Forparacentesis Performing Organization Address City/State/Zipcode Phone Number [facility] [address] [place] [address] CENTER ECG 12 lead (02/18/2019 5:09 AM CDT)Only the most recent of4 resultswithin the time period is included. Specimen Narrative Performed At Ventricular Rate 121 BPM GE MUSE Atrial Rate 121 BPM P-R Interval 144 ms QRS Duration 74 ms Q-T Interval 342 ms QTC Calculation(Bazett) 485 ms P Broughton 45 degrees R Broughton 59 degrees T Broughton 41 degrees Sinus tachycardia Otherwise normal ECG When compared with ECG of 16-FEB-2019 09:02, No significant change was found Confirmed by MD Lew Roberto ([id number]) on 02/18/2019 4:23:29 PM Procedure Note Interface, External Ris In - 02/18/2019 4:23 PM CDT Ventricular Rate 121 BPM Atrial Rate 121 BPM P-R Interval 144 ms QRS Duration 74 ms Q-T Interval 342 ms QTC Calculation(Bazett) 485 ms P Broughton 45 degrees R Broughton 59 degrees T Broughton 41 degrees Sinus tachycardia Otherwise normal ECG When compared with ECG of 16-FEB-2019 09:02, No significant change was found Confirmed by MD Lew Roberto ([id number]) on 02/18/2019 4:23:29 PM Performing Organization Address City/[facility]/Zipcode Phone Number GE MUSE Transfuse Leuko-Red RBC (02/17/2019 5:47 PM CDT)Only the most recent of2 resultswithin the time period is included.Type and screen, automated (2018 12:01 PM CDT)Only the most recent of2 resultswithin the time period is included. ABO/RH AUTOMATED (BEAKER) O POSITIVE [facility] Ab Scrn NEGATIVE [facility] Specimen Blood Performing Organization Address City/State/Zipcode Phone Number [facility] [address] [place] [phone] Calcium, Ionized (02/17/2019 7:48 AM CDT)Only the most recent of6 resultswithin the time period is included. Calcium, Ion 0.92 (L) 1.12 - 1.27 mmol/L [facility] pH, Blood 7.41 [facility] Specimen Blood Performing Organization Address City/State/Zipcode Phone Number [address] [address] CENTER Uric acid (02/17/2019 7:48 AM CDT) Uric Acid 8.7 (H) 2.6 - 7.2 mg/dL [facility] Specimen Blood Performing Organization Address City/State/Zipcode Phone Number [facility] [address] [place] [phone] CENTER Comprehensive metabolic panel (02/17/2019 7:48 AM CDT)Only the most recent of6 resultswithin the time period is included. Protein, Total 5.9 (L) 6.0 - 8.3 gm/dL [facility] Albumin 3.2 (L) 3.5 - 5.0 g/dL [facility] Alkaline Phosphatase 46 40 - 150 U/L [facility] Total Bilirubin 0.8 0.2 - 1.2 mg/dL [facility] Sodium 139 136 - 145 meq/L [facility] Potassium 3.5 3.5 - 5.1 meq/L [facility] Chloride 106 98 - 107 meq/L [facility] CO2 23 22 - 29 meq/L [facility] BUN 20 7 - 21 mg/dL [facility] Creatinine 2.29 (H) 0.57 - 1.25 mg/dL [facility] Glucose 130 (H) 70 - 105 mg/dL [facility] Calcium 7.8 (L) 8.4 - 10.2 mg/dL [facility] AST 32 5 - 34 U/L [facility] ALT 16 6 - 55 U/L [facility] EGFR 26Comment: ESTIMATED GFR mL/min/1.73 sq m [facility] IS NOT ACCURATE [facility] CREATININE CLEARANCE IN PREDICTING GLOMERULAR FILTRATION RATE. ESTIMATED GFR IS NOT APPLICABLE FOR DIALYSIS PATIENTS. Specimen Blood Performing Organization Address City/[facility] Cent[facility]ode Phone Number [address] [address] CENTER Clostridium difficile [facility] Toxin (02/16/2019 5:52 PM CDT)Only the most recent of2 resultswithin the time period is included. C. Difficle Toxin Negative Negative [facility] C. Difficile [facility] Antigen NegativeComment: No Negative [facility] indication of Clostridium [facility] difficile infection and no colonization. Discontinue enteric isolation and therapy. Specimen Stool Narrative Performed At Testing performed by [employer] [facility] Assay.For GDH, published sensitivity of the assay is 98.7% compared to cytotoxicity testing.For Toxin AB, published sensitivity is 87.8% and specificity 99.4% compared to cytotoxicity testing. Verification of kit performance was done by the [facility] Microbiology Lab prior to clinical use. Performing Organization Address City/[facility]/Zipcode Phone Number [address] [address] CENTER Manual Differential (02/16/2019 5:33 AM CDT) % Neutros (manual) 74 % [facility] % Lymphs (manual) 14 % [facility] % Monos (manual) 10 % [facility] % Eos (manual) 1 % [facility] % Baso (manual) 1 % [facility] # Neutros (manual) 5.40 1.80 - 8.00 K/L [facility] # Lymphs (manual) 1.02 (L) 1.48 - 4.50 K/L [facility] # Monos (manual) 0.73 0.00 - 1.30 K/L [facility] # Eos (manual) 0.07 0.00 - 0.50 K/L [facility] # Baso (manual) 0.07 0.00 - 0.20 K/L [facility] Total Counted 100 [facility] WBC Morphology Normal [facility] Platelet Morphology Normal [facility] RBC Morphology Normal [facility] Specimen Blood Performing Organization Address City/State/Zipcode Phone Number [place] [id number] [place] [address] [phone] CENTER XR chest 1 view portable / bedside (02/15/2019 8:25 PM CDT)Only the most recent of3 resultswithin the time period is included. Specimen Narrative Performed At FINAL REPORT [facility] History: PICC line placement. Comparison: 02/13/2019 Findings: A single view of the chest is submitted. A left-sided PICC line tip overlies the superior vena cava. The cardiac silhouette is within normal limits for size. There is atherosclerotic calcification of the aorta. A small left pleural effusion and adjacent opacity in the left lower lung is similar to previous. There is no pneumothorax, evidence of overt pulmonary edema or acute bony abnormality. Signed: Aneesh Reed MD Report Verified Date/Time:02/15/2019 21:33:22 Reading Location: [address] Reading Room Procedure Note Interface, External Ris In - 02/15/2019 9:35 PM CDT FINAL REPORT History: PICC line placement. Comparison: 02/13/2019 Findings: A single view of the chest is submitted. A left-sided PICC line tip overlies the superior vena cava. The cardiac silhouette is within normal limits for size. There is atherosclerotic calcification of the aorta. A small left pleural effusion and adjacent opacity in the left lower lung is similar to previous. There is no pneumothorax, evidence of overt pulmonary edema or acute bony abnormality. Signed: Aneesh Reed MD Report Verified Date/Time: 02/15/2019 21:33:22 Reading Location: [address] Reading Room Performing Organization Address City/[facility] Center[facility]m Phone Number RIS Protein, random urine (02/15/2019 5:57 AM CDT) Protein, Urine 58 (H) 0 - 14 mg/dL [facility] Specimen Urine Performing Organization Address [facility] Phone Number [address] [address] [place] Creatinine, random urine (02/15/2019 5:57 AM CDT)Only the most recent of2 resultswithin the time period is included. Creatinine, Ur 166.6 mg/dL [facility] Specimen Urine Narrative Performed At Reference Range: No Normals [facility] Performing Organization Address City/[facility] Centercode Phone Number [address] [address] CENTER Hemoglobin and hematocrit (02/14/2019 12:53 PM CDT) Hemoglobin 8.1 (L) 11.2 - 15.7 GM/DL [facility] Hematocrit 25.7 (L) 34.1 - 44.9 % [facility] Specimen Blood Performing Organization Address City/[facility] Centercode Phone Number [facility] [address] [place] [address] CENTER ECHOCARDIOGRAM REPORT - SCAN (02/13/2019 9:11 PM CDT) Narrative Performed At 2D Echo W/Doppler(CW/PW/Color) (02/13/2019 1:10 PM CDT) Ejection Fraction [facility] Specimen Narrative Performed At Transthoracic Echocardiography Report (TTE) [facility] Demographics Patient NameANGIE SPRING Date of Study02/13/2019 Female Visit [id number] Black Room [id number] Number Date of 1955Referring Roslyn Espinosa Age 63 year(s)SonographBere Sheehan [facility] Printmaker Javier Zamora Interpreting Jeremy Shepherd MD Physician Procedure Type of Study TTE procedure:2DECHO W DOPPLER(CW/PW/COLOR) (Routine) Indications:Cirrhosis and Hypertension. Clinical History HGB 7.6 HCT 23.2 % Cancer, Cirrhosis, Ascites, Tachycardia, HTN Height: 67 inches Weight: 95.25 kg (210 lbs) BSA: 2.06 m^2 BMI: 32.89 kg/m^2 HR: 106 bpm BP: 119/65 mmHg Summary Normal left ventricular chamber size. Normal wall thickness. Normal overall left ventricular systolic function. No apparent segmental wall motion abnormalities. Estimated LVEF by qualitative assessment is normal (>60%) . Grade 1 diastolic dysfunction (impaired relaxation and low-normal LA pressure). Estimated peak systolic PA pressure is 30-35 mmHg . No evidence of pericardial effusion. Signature Findings Technical Quality: Technically adequate exam. Left Ventricle Normal left ventricular chamber size. Normal wall th ickness. Normal overall left ventricular systolic fu nction. No apparent segmental wall motion ab normalities. Estimated LVEF by qualitative as sessment is normal (>60%) . Grade 1 diastolic dy sfunction (impaired relaxation and low-normal LA pr essure). Left AtriumLA size is normal . Right VentricleNormal right ventricle structure and function. Right Atrium Normal right atrium. Aortic Valve Normal AoV structure and function. Mitral Valve Normal MV structure and function. Tricuspid ValveA trace of tricuspid regurgitation. Es timated peak systolic PA pressure is 30-35 mmHg . Pulmonic Valve Normal PV structure and function by limited views an d Doppler. AortaAortic root size (SInus of Valsalva diameter) is no rmal . PericardiumNo evidence of pericardial effusion. IVC/SVC/PA/PV/PleuralThe estimated RA pressure by IVC dynamics 5-10mmHg . Chambers/Structures Left Atrium LA Volume: 41.37 ml LA Area: 16.08 cm^2 LA Vol. Index: 20 ml/m^2 Left Ventricle LVIDd: 4.78 cm LVEDV:106.58 ml LVIDs: 3.21 cm LVESV:33.05 ml LV Septum Diastolic: 0.6 cmLVEF 2D Cube: 69.8 % LV PW Diastolic: 0.45 cm LVEDV Jo's:56.67 ml LV Length: 7.39 cm LVESV Jo's:17.77 ml LV FS: 32.9 % LVEF Jo's: 68.6 % LVEDVI: 28 ml/m^2 LVOT Diameter: 2.21 cm LVESVI: 9 ml/m^2 LVEF: 69 % Doppler/Quantitative Measurements Mitral Valve MV Peak E-Wave: 0.7 m/sMV Peak A-Wave: 0.85 m/s P1/2t: 46.3 msec E/A Ratio: 0.83 Peak Gradient: 1.97 mmHg Deceleration Time: 177.3 msec MV Area (PHT): 4.75 cm^2 MV Eduardo. Peak: Aortic Valve Peak Velocity: 1.23 m/sMean Velocity: 0.82 m/s Peak Gradient: 6.02 mmHg Mean Gradient: 3.13 mmHg AV Area (continuity): 3.62 cm^2 AV VTI: 21.63 cm AV DVI: 0.94 LVOT Peak Velocity: 1.12 m/s Peak Gradient: 5.06 mmHg Mean Velocity: 0.64 m/s Mean Gradient: 2 mmHg LVOT Diameter: 2.21 cmLVOT VTI: 20.43 cm LVOT Area: 3.84 cm^2LVOT SV:78.33 ml LVOT CO: 8.3 l/minLVOT CI: 4.03 l/min/m^2 Procedure Note Interface, External Ris In - 02/13/2019 3:37 PM CDT Transthoracic Echocardiography Report (TTE) Demographics Patient Name ANGIE SPRING Date of Study 02/13/2019 Gender Female Visit Number [id number] Race Black Room Number [id number] Number Date of 1955 Referring Physician Duarte Espinosa Age 63 year(s) Educational Fundraising Director Angeles Sheehan, [facility] Printmaker Javier Zamora Interpreting Jeremy Shepherd MD Physician Procedure Type of Study TTE procedure:2DECHO W DOPPLER(CW/PW/COLOR) (Routine) Indications:Cirrhosis and Hypertension. Clinical History HGB 7.6 HCT 23.2 % Cancer, Cirrhosis, Ascites, Tachycardia, HTN Height: 67 inches Weight: 95.25 kg (210 lbs) BSA: 2.06 m^2 BMI: 32.89 kg/m^2 HR: 106 bpm BP: 119/65 mmHg Summary Normal left ventricular chamber size. Normal wall thickness. Normal overall left ventricular systolic function. No apparent segmental wall motion abnormalities. Estimated LVEF by qualitative assessment is normal (>60%) . Grade 1 diastolic dysfunction (impaired relaxation and low-normal LA pressure). Estimated peak systolic PA pressure is 30-35 mmHg . No evidence of pericardial effusion. Signature Findings Technical Quality: Technically adequate exam. Left Ventricle Normal left ventricular chamber size. Normal wall thickness. Normal overall left ventricular systolic function. No apparent segmental wall motion abnormalities. Estimated LVEF by qualitative assessment is normal (>60%) . Grade 1 diastolic dysfunction (impaired relaxation and low-normal LA pressure). Left Atrium LA size is normal . Right Ventricle Normal right ventricle structure and function. Right Atrium Normal right atrium. Aortic Valve Normal AoV structure and function. Mitral Valve Normal MV structure and function. Tricuspid Valve A trace of tricuspid regurgitation. Estimated peak systolic PA pressure is 30-35 mmHg . Pulmonic Valve Normal PV structure and function by limited views and Doppler. Aorta Aortic root size (SInus of Valsalva diameter) is normal . Pericardium No evidence of pericardial effusion. IVC/SVC/PA/PV/Pleural The estimated RA pressure by IVC dynamics 5-10mmHg . Chambers/Structures Left Atrium LA Volume: 41.37 ml LA Area: 16.08 cm^2 LA Vol. Index: 20 ml/m^2 Left Ventricle LVIDd: 4.78 cm LVEDV:106.58 ml LVIDs: 3.21 cm LVESV:33.05 ml LV Septum Diastolic: 0.6 cm LVEF 2D Cube: 69.8 % LV PW Diastolic: 0.45 cm LVEDV Jo's:56.67 ml LV Length: 7.39 cm LVESV Jo's:17.77 ml LV FS: 32.9 % LVEF Jo's: 68.6 % LVEDVI: 28 ml/m^2 LVOT Diameter: 2.21 cm LVESVI: 9 ml/m^2 LVEF: 69 % Doppler/Quantitative Measurements Mitral Valve MV Peak E-Wave: 0.7 m/s MV Peak A-Wave: 0.85 m/s P1/2t: 46.3 msec E/A Ratio: 0.83 Peak Gradient: 1.97 mmHg Deceleration Time: 177.3 msec MV Area (PHT): 4.75 cm^2 MV Eduardo. Peak: Aortic Valve Peak Velocity: 1.23 m/s Mean Velocity: 0.82 m/s Peak Gradient: 6.02 mmHg Mean Gradient: 3.13 mmHg AV Area (continuity): 3.62 cm^2 AV VTI: 21.63 cm AV DVI: 0.94 LVOT Peak Velocity: 1.12 m/s Peak Gradient: 5.06 mmHg Mean Velocity: 0.64 m/s Mean Gradient: 2 mmHg LVOT Diameter: 2.21 cm LVOT VTI: 20.43 cm LVOT Area: 3.84 cm^2 LVOT SV:78.33 ml LVOT CO: 8.3 l/min LVOT CI: 4.03 l/min/m^2 Performing Organization Address City/[facility] Cent[facility]ode Phone Number [facility] CP[facility] B-type Natriuretic Factor (BNP) (02/13/2019 10:03 AM CDT)Only the most recent of3 resultswithin the time period is included. BNP 107 (H) 0 - 100 pg/mL [facility] Specimen Blood Performing Organization Address [facility] Phone Number [facility] [address] [place] [address] [phone] CENTER PERIPHERAL VASCULAR REPORT - SCAN (02/11/2019 9:11 PM CDT) Narrative Performed At CT abdomen/pelvis without iv contrast (02/11/2019 3:25 PM CDT) Specimen Narrative Performed At FINAL REPORT Yaphie TECHNIQUE: CT of the abdomen and pelvis WITHOUT intravenous contrast and WITHOUT oral contrast. Dose modulation, iterative reconstruction, and/or weight-based adjustment of the mA/kV was utilized to reduce the radiation dose to as low as reasonably achievable. INDICATION: 63-year-old woman with loculated hepatic fluid collection. COMPARISON: Outside abdomen and pelvis CT 02/08/2019. FINDINGS: ABSENCE OF INTRAVENOUS CONTRAST DECREASES SENSITIVITY FOR DETECTION OF FOCAL LESIONS AND VASCULAR PATHOLOGY. LOWER THORAX: Trace bilateral pleural effusions. Unchanged hyperdensity/calcification along the pleura in the left lung base. HEPATOBILIARY: No focal hepatic lesions. Gallbladder is unremarkable. No biliary ductal dilatation. SPLEEN: No splenomegaly. PANCREAS: No focal masses or ductal dilatation. ADRENALS: No adrenal nodules. KIDNEYS/URETERS: No hydronephrosis or stones. 1.7 x 1.3 cm right renal cyst. PELVIC ORGANS/BLADDER: Prior hysterectomy. No adnexal mass. Bladder is unremarkable. PERITONEUM/RETROPERITONEUM: Small-moderate loculated ascites. No free air. LYMPH NODES: No lymphadenopathy. VESSELS: Unremarkable. GI TRACT: Mildly distended loops of small bowel in the right abdomen. Evaluation for transition point is limited without intravenous or oral contrast. Colonic diverticula. Normal appendix. Small hiatal hernia. BONES AND SOFT TISSUES: Scattered sclerotic lesions in the visualized thoracolumbar lumbar spine and bony pelvis measure up to 1.1 cm. Unchanged mild presacral soft tissue stranding. IMPRESSION: Small-moderate loculated ascites. Mildly distended loops of small bowel in the right abdomen are nonspecific, but may be seen in the setting of small bowel obstruction. Evaluation for a transition point is limited by lack of intravenous or oral contrast. Scattered sclerotic lesions in the visualized bones, suspicious for metastases. Signed: Jose Mayorga MD Report Verified Date/Time:02/11/2019 16:19:52 Reading Location: [facility] C013Y CT Body Reading Room Procedure Note Interface, External Ris In - 02/11/2019 4:22 PM CDT FINAL REPORT TECHNIQUE: CT of the abdomen and pelvis WITHOUT intravenous contrast and WITHOUT oral contrast. Dose modulation, iterative reconstruction, and/or weight-based adjustment of the mA/kV was utilized to reduce the radiation dose to as low as reasonably achievable. INDICATION: 63-year-old woman with loculated hepatic fluid collection. COMPARISON: Outside abdomen and pelvis CT 02/08/2019. FINDINGS: ABSENCE OF INTRAVENOUS CONTRAST DECREASES SENSITIVITY FOR DETECTION OF FOCAL LESIONS AND VASCULAR PATHOLOGY. LOWER THORAX: Trace bilateral pleural effusions. Unchanged hyperdensity/calcification along the pleura in the left lung base. HEPATOBILIARY: No focal hepatic lesions. Gallbladder is unremarkable. No biliary ductal dilatation. SPLEEN: No splenomegaly. PANCREAS: No focal masses or ductal dilatation. ADRENALS: No adrenal nodules. KIDNEYS/URETERS: No hydronephrosis or stones. 1.7 x 1.3 cm right renal cyst. PELVIC ORGANS/BLADDER: Prior hysterectomy. No adnexal mass. Bladder is unremarkable. PERITONEUM/RETROPERITONEUM: Small-moderate loculated ascites. No free air. LYMPH NODES: No lymphadenopathy. VESSELS: Unremarkable. GI TRACT: Mildly distended loops of small bowel in the right abdomen. Evaluation for transition point is limited without intravenous or oral contrast. Colonic diverticula. Normal appendix. Small hiatal hernia. BONES AND SOFT TISSUES: Scattered sclerotic lesions in the visualized thoracolumbar lumbar spine and bony pelvis measure up to 1.1 cm. Unchanged mild presacral soft tissue stranding. IMPRESSION: Small-moderate loculated ascites. Mildly distended loops of small bowel in the right abdomen are nonspecific, but may be seen in the setting of small bowel obstruction. Evaluation for a transition point is limited by lack of intravenous or oral contrast. Scattered sclerotic lesions in the visualized bones, suspicious for metastases. Signed: Jose Mayorga MD Report Verified Date/Time: 02/11/2019 16:19:52 Reading Location: [facility] C013Y CT Body Reading Room Performing Organization Address City/State/Zipcode Phone Number [employer] RIS Venous doppler legs bilateral (02/10/2019 3:00 PM CDT) Ejection Fraction [facility] Specimen Impressions Performed At Right Impression [facility] CP[facility] 1. There is no deep venous obstruction in the common femoral, profunda femoral, femoral, popliteal, posterior tibial or peroneal veins. 2. There is no superficial venous obstruction in the great saphenous vein. Left Impression 1. There is no deep venous obstruction in the common femoral, profunda femoral, femoral, popliteal, posterior tibial or peroneal veins. 2. There is no superficial venous obstruction in the great saphenous vein. Conclusions Summary Venous duplex imaging and compression of the bilateral lower extremities were performed. The veins were adequately visualized. The bilateral venous systems were patent and compressible with no evidence of thrombus. The venous Doppler waveforms were phasic with respiration . Signature Velocities are measured in cm/s ; Diameters are measured in cm Narrative Performed At LAB - Lower Extremities DVT Study [facility] Demographics Patient NameANGIE SPRING Date of Study 02/10/2019 63 Visit [id number] Female of 1955 Referring Charles Heredia Number [id number] Physician Educational Fundraising Director Ryan Vasquez [facility] Physician Procedure Type of Study: Veins: Lower Extremities DVT Study, VENOUS DOPPLER LEG, BILATERAL. Indications for Study:R/O DVT. Patient Status:Routine. Study Location:Portable. Technical Quality:Adequate visualization. Risk Factors History of Disease +---------+----+ + !Diagnosis!Date!Comments ! +---------+----+ + !Other!!Invasive line (left arm), Morbid Obesity ! +---------+----+ + Procedure Note Interface, External Ris In - 02/11/2019 12:05 PM CDT [facility] LAB - Lower Extremities DVT Study Demographics Patient Name ANGIE SPRING Date of Study 02/10/2019 Age 63 Visit Number [id number] Gender Female Accession Number [id number] Date of 1955 Referring Charles Jaimes Room Number [id number] Physician Educational Fundraising Director Ryan Small Interpreting Domi Vasquez, T Physician Procedure Type of Study: Veins: Lower Extremities DVT Study, VENOUS DOPPLER LEG, BILATERAL. Indications for Study:R/O DVT. Patient Status:Routine. Study Location:Portable. Technical Quality:Adequate visualization. Risk Factors History of Disease +---------+----+ + !Diagnosis!Date!Comments ! +---------+----+ + !Other ! !Invasive line (left arm), Morbid Obesity ! +---------+----+ + Impressions Right Impression 1. There is no deep venous obstruction in the common femoral, profunda femoral, femoral, popliteal, posterior tibial or peroneal veins. 2. There is no superficial venous obstruction in the great saphenous vein. Left Impression 1. There is no deep venous obstruction in the common femoral, profunda femoral, femoral, popliteal, posterior tibial or peroneal veins. 2. There is no superficial venous obstruction in the great saphenous vein. Conclusions Summary Venous duplex imaging and compression of the bilateral lower extremities were performed. The veins were adequately visualized. The bilateral venous systems were patent and compressible with no evidence of thrombus. The venous Doppler waveforms were phasic with respiration . Signature Velocities are measured in cm/s ; Diameters are measured in cm Performing Organization Address City/State/[facility] Phone Number [facility] [address] Venous doppler arms bilateral (02/10/2019 3:00 PM CDT) Ejection Fraction [facility] [address] Specimen Impressions Performed At Right Impression [facility] [address] 1. There is no deep venous obstruction in the jugular, subclavian, axillary, brachial, radial or ulnar veins. 2. There is no superficial venous obstruction in the cephalic or basilic veins. Left Impression 1. There is no deep venous obstruction in the jugular, subclavian, axillary, radial or ulnar veins. 2. The brachial vein was not visualized due to a line. 3. The cephalic and basilic veins were not visualized. Conclusions Summary Venous duplex imaging and compression of the bilateral upper extremities was performed. The veins were adequately visualized except as stated above. The bilateral venous systems were patent and compressible with no evidence of thrombus where visualized. Signature Velocities are measured in cm/s ; Diameters are measured in cm Narrative Performed At PV LAB - Upper Extremities Veins [facility] Demographics Patient NameANGIE SPRING Date of Study 02/10/2019 63 Visit [id number] Female of 1955 Referring Charles Heredia Number [id number] Physician Educational Fundraising Director Ryan Vasquez T Physician Procedure Type of Study: Veins: Upper Extremities Veins, VENOUS DOPPLER ARMS, BILATERAL. Indications for Study:R/O DVT. Patient Status:Routine. Study Location:Portable. Technical Quality:Adequate visualization. Risk Factors History of Disease +---------+----+ + !Diagnosis!Date!Comments ! +---------+----+ + !Other!!Invasive line (left arm), Morbid Obesity ! +---------+----+ + Procedure Note Interface, External Ris In - 02/11/2019 12:04 PM CDT [facility] LAB - Upper Extremities Veins Demographics Patient Name ANGIE SPRING Date of Study 02/10/2019 Age 63 Visit Number [id number] Gender Female Accession Number [id number] Date of 1955 Referring [facility] Room Number 2434 Physician Educational Fundraising Director Ryan Small Interpreting Domi Vasquez T Physician Procedure Type of Study: Veins: Upper Extremities Veins, VENOUS DOPPLER ARMS, BILATERAL. Indications for Study:R/O DVT. Patient Status:Routine. Study Location:Portable. Technical Quality:Adequate visualization. Risk Factors History of Disease +---------+----+ + !Diagnosis!Date!Comments ! +---------+----+ + !Other ! !Invasive line (left arm), Morbid Obesity ! +---------+----+ + Impressions Right Impression 1. There is no deep venous obstruction in the jugular, subclavian, axillary, brachial, radial or ulnar veins. 2. There is no superficial venous obstruction in the cephalic or basilic veins. Left Impression 1. There is no deep venous obstruction in the jugular, subclavian, axillary, radial or ulnar veins. 2. The brachial vein was not visualized due to a line. 3. The cephalic and basilic veins were not visualized. Conclusions Summary Venous duplex imaging and compression of the bilateral upper extremities was performed. The veins were adequately visualized except as stated above. The bilateral venous systems were patent and compressible with no evidence of thrombus where visualized. Signature Velocities are measured in cm/s ; Diameters are measured in cm Performing Organization Address City/[facility] Phone Number [facility] Anti-Mitochondrial Ab, reflex to titer (02/10/2019 3:53 AM CDT) Scan Result [facility] Specimen Blood Narrative Performed At Performing Organization Address [facility] Phone [place] [address] [address] [place] [address] Actin (Smooth Muscle) Antibody, IgG (02/10/2019 3:53 AM CDT) Anti-Smooth Muscle Ab <20 See Note: U [facility] Comment: INCORPORATED Reference Range: <20 NEGATIVE > OR=20 POSITIVE Antibodies recognizing actin are the main component of smooth muscle antibodies associated with autoimmune liver disease. Actin antibodies are found in approximately 75% of patients with autoimmune hepatitis (AIH) type 1, approximately 65% of patients with autoimmune cholangitis, approximately 30% of patients with primary biliary cirrhosis, and approximately 2% of healthy people. High values are closely correlated with AIH type 1. Specimen Blood Narrative Performed At Performing Lab [facility] [place] [address] [place] [address] Patricia Juan MD, PhD, OG Performing Organization Address City/State/Zipcode Phone Number [facility], [place] [address] INC[facility]PORATED [address] [facility] Hepatitis A antibody, IgG (02/09/2019 6:14 PM CDT) Hep A IgG Reactive (A) Nonreactive [facility] Specimen Blood Performing Organization Address [facility] Phone Number [address] [address] CENTER ABORH, manual (02/09/2019 6:14 PM CDT) ABO Grouping O [facility] Rh Factor POS [facility] Specimen Blood Performing Organization Address [facility] Phone Number [address] [address] [phone] Iron, TIBC, % sat. (without ferritin) (02/09/2019 6:14 PM CDT) Iron 23.0 (L) 40.0 - 160.0 ug/dL [facility] TIBC 94 (L) 250 - 450 ug/dL [facility] Iron % Saturation 24 20 - 55 % [facility] Specimen Blood Performing Organization Address [facility] Phone Number [address] [address] [phone] [place] Hepatitis C antibody (02/09/2019 6:14 PM CDT) Hepatitis C Ab NON-REACTIVE Nonreactive [facility] Specimen Blood Performing Organization Address [facility] Phone Number [address] [address] [place] CARROL Titer & Pattern (02/09/2019 6:14 PM CDT) CARROL Titer 1:160 [facility] CARROL Pattern Homogeneous [facility] Specimen Blood Performing Organization Address [facility] Phone Number [address] [address] [place] Hepatitis B surface antibody (02/09/2019 6:14 PM CDT) Hep B S Ab <8.0 <8.0 mIU/mL [facility] Specimen Blood Performing Organization Address [facility] Phone Number [address] [address] [place] Hepatitis B surface antigen (02/09/2019 6:14 PM CDT) hepatitis B Surface Ag NON-REACTIVE Nonreactive [facility] Specimen Blood Performing Organization Address [facility] Phone Number [address] [address] [place] Anti-Nuclear Antibody (CARROL) (02/09/2019 6:14 PM CDT) [place] Positive (A) Negative [facility] Specimen Blood Narrative Performed At Test performed by IFA method. [facility] Performing Organization Address [facility] Phone Number [address] [address] [phone] CENTER Gamma Glutamyl Transferase (GGT) (02/09/2019 6:14 PM CDT) GGT 21Comment: Specimen slightly 9 - 64 U/L [facility] hemolyzed CENTER Specimen Blood Performing Organization Address [facility] Phone Number [address] [address] CENTER Immunoglobulin G (IgG) (02/09/2019 6:14 PM CDT) IgG 926 540-1,822 mg/dL [facility] Specimen Blood Performing Organization Address [facility] Phone Number [address] [address] CENTER Ferritin (02/09/2019 6:14 PM CDT) Ferritin 1,896 (H) 5 - 275 ng/mL [facility] Specimen Blood Performing Organization Address City/State/Zipcode Phone Number [facility] [address] [place] [address] [place] US abdominal with doppler (02/09/2019 5:45 PM CDT)Only the most recent of2 resultswithin the time period is included. Specimen Narrative Performed At FINAL REPORT Yaphie INDICATION: Cirrhosis. TECHNIQUE: Ultrasound of the Abdomen and Doppler evaluation. Sonographic evaluation of the abdomen was performed, including color flow and spectral Doppler analysis of the abdominal vasculature. Exam was technically difficult because of bowel gas. COMPARISON: February 02, 2019 FINDINGS: Hepatic Vasculature: Main portal vein shows hepatopedal flow with a velocity of 33 cm/s. Right portal vein demonstrates hepatopedal flow. Left portal vein not visualized. Proper hepatic artery resistive index is 0.75. Right hepatic artery and left hepatic artery not visualized. Right, middle, and left hepatic veins are patent. Hepatic venous confluence and visualized part of the IVC patent. Hepatopedal flow demonstrated in the splenic vein at the hilum. Splenic vein at the level of the pancreas not visualized. Other: Pancreas not visualized because of bowel gas. Liver echotexture is coarse, in keeping with cirrhosis. No liver mass identified. Mild ascites. Gallbladder unremarkable. Common bile duct appears to measure 0.6 cm. Right kidney measures 10.0 x 4.5 x 4.0 cm. Left kidney measures 11.8 x 5.7 x 6.0 cm. No hydronephrosis or renal mass demonstrated. Spleen measures 9 x 3 cm. Abdominal aorta not visualized because of bowel gas. IMPRESSION: Technically difficult exam because of bowel gas. Coarse liver echotexture, in keeping with cirrhosis. Mild ascites. Signed: Justo Goss MD Report Verified Date/Time:02/09/2019 20:08:48 Reading Location: [facility] B1 [id number] Consult Reading Room Procedure Note Interface, External Ris In - 02/09/2019 8:10 PM CDT FINAL REPORT INDICATION: Cirrhosis. TECHNIQUE: Ultrasound of the Abdomen and Doppler evaluation. Sonographic evaluation of the abdomen was performed, including color flow and spectral Doppler analysis of the abdominal vasculature. Exam was technically difficult because of bowel gas. COMPARISON: February 02, 2019 FINDINGS: Hepatic Vasculature: Main portal vein shows hepatopedal flow with a velocity of 33 cm/s. Right portal vein demonstrates hepatopedal flow. Left portal vein not visualized. Proper hepatic artery resistive index is 0.75. Right hepatic artery and left hepatic artery not visualized. Right, middle, and left hepatic veins are patent. Hepatic venous confluence and visualized part of the IVC patent. Hepatopedal flow demonstrated in the splenic vein at the hilum. Splenic vein at the level of the pancreas not visualized. Other: Pancreas not visualized because of bowel gas. Liver echotexture is coarse, in keeping with cirrhosis. No liver mass identified. Mild ascites. Gallbladder unremarkable. Common bile duct appears to measure 0.6 cm. Right kidney measures 10.0 x 4.5 x 4.0 cm. Left kidney measures 11.8 x 5.7 x 6.0 cm. No hydronephrosis or renal mass demonstrated. Spleen measures 9 x 3 cm. Abdominal aorta not visualized because of bowel gas. IMPRESSION: Technically difficult exam because of bowel gas. Coarse liver echotexture, in keeping with cirrhosis. Mild ascites. Signed: Justo Goss MD Report Verified Date/Time: 02/09/2019 20:08:48 Reading Location: [address] Consult Reading Room Performing Organization Address City/State/Zipcode Phone Number [facility] Body fluid culture + gram stain (02/09/2019 4:00 PM CDT)Only the most recent of2 resultswithin the time period is included. Result No growth [facility] Gram Stain Result <1+ White blood cells seen [facility] Gram Stain Result No organisms seen [facility] Specimen Body Fluid Performing Organization Address City/[facility]/Zipcode Phone Number [facility] [address] [place] [address] [phone] CENTER Cytology (02/09/2019 4:00 PM CDT)Only the most recent of2 resultswithin the time period is included. Case Report Medical Cytology Report Case: [id number] [facility] Authorizing Provider:Charles Jaimes NP Collected: 02/09/2019 1600 [facility] Ordering Location: [place] [address] ICUReceived: 02/10/2019 0805 Pathologist: Ayesha Vance MD Specimen:Peritoneal Fluid DIAGNOSIS PERITONEAL FLUID (CYTOSPINS AND CELL BLOCK): [facility] - SCATTERED ATYPICAL CELLS, COMPATIBLE WITH METASTATIC ADENOCARCINOMA [facility] (SEE COMMENT) Signing Pathologist Direct Phone Line: [phone] COMMENT The patient has a recent [facility] sample of peritoneal fluid [facility] ([id number]) with metastatic adenocarcinoma. In the current sample, atypical cells with similar features are seen. Please see the prior sample ([id number]) for additional evaluation and information. CPT Code(s) 87326, 90888 [facility] CLINICAL DATA Breast ca s/p chemo/xrt, and e/o recurrent adenocarcinoma on malignant ascites 02/03/19(see [id number]) [facility] SPECIMEN SOURCE PERITONEAL FLUID [facility] GROSS DESCRIPTION 900 mls yellow; 4 cytospins, cell block [facility] Collected: [id number] [facility] Received: [id number] STATEMENT OF ADEQUACY Satisfactory [facility] Gross assessment was [facility] performed at [place], Department [facility], [address] [place] [address], Technical component was [facility] performed at [place], Department of [facility] Pathology, [address] [place] [address], Professional component was [facility] performed at [place], Department [facility], [address] [place] [address], Specimen Body Fluid Narrative Performed At Performing Organization Address [facility]/Zipcode Phone Number [facility] [address] [place] [address] [place] Body fluid cell count with differential (02/09/2019 3:59 PM CDT)Only the most recent of2 resultswithin the time period is included. Appearance Slightly Hazy (A) Clear [facility] Color Yellow (A) Colorless, Straw [facility] RBCs 200 (H) <=1 /cu mm [facility] Adjusted WBC Count 88 (H) <=5 /cu mm [facility] Lining Cells 2 (H) <=1 /cu mm [facility] % Segs 1 % [facility] % Lymphs 57 % [facility] % Monos 40 % [facility] % Eos 2 % [facility] % Baso 0 % [facility] Container Body Fluid EDTA Tube [facility] Specimen Body Fluid Performing Organization Address [facility] Phone Number [place] [id number] [place] [address] [phone] [place] Lactate dehydrogenase (LDH), body fluid (02/09/2019 3:59 PM CDT) LDH, Fluid 288 U/L [facility] Specimen Body Fluid Narrative Performed At Absence of reference range indicates that [facility] normals have not been defined. Assay performance has not been validated for this type of specimen. Performing Organization Address [facility]/Zipcode Phone Number [facility] [address] [place] [address] [place] Albumin, body fluid (02/09/2019 3:59 PM CDT)Only the most recent of2 resultswithin the time period is included. Albumin, Fluid 2.3 gm/dL [facility] Specimen Body Fluid Narrative Performed At Reference Range:No Normals [facility] Assay performance has not been validated for this type of specimen. Performing Organization Address City/[facility] Phone Number [facility] [address] [place] [address] [phone] CENTER Urinalysis w/Microscopic + Reflex to Culture (02/09/2019 3:35 PM CDT) Color, UA Yellow [facility] Clarity, UA Hazy [facility] Specific [place], UA 1.015 1.001 - 1.035 [facility] pH, UA 5.5 5.0 - 8.0 [facility] Protein, UA 20 mg/dL (A) Negative [facility] Glucose, UA Negative Negative [facility] Ketones, UA Trace (A) Negative [facility] Bilirubin, UA Negative Negative [facility] Blood, UA Negative Negative [facility] Nitrite, UA Negative Negative [facility] Leukocytes, UA Large (A) Negative [facility] Urobilinogen, UA 0.2 0.2 - 1.0 mg/dL [facility] RBC, UA 1 /HPF [facility] WBC, UA 10 /HPF [facility] Squam Epithel, UA 3 /HPF [facility] Hyaline Casts, UA 2 /LPF [facility] Crystals, Urine Rare [facility] Yeast Occasional [facility] Specimen Source [facility] Specimen Urine Performing Organization Address City/[facility]/Zipcode Phone Number [address] [address] [phone] [place] Urea Nitrogen, random urine (02/09/2019 3:35 PM CDT) Urea Nitrogen, Ur 557 mg/dL [facility] Specimen Urine Narrative Performed At Reference Range: No Normals [facility] Performing Organization Address [facility]ode Phone Number [address] [address] [place] Sodium, random urine (02/09/2019 3:35 PM CDT) Sodium Urine <20 meq/L [facility] Specimen Urine Narrative Performed At Reference Range: No Normals [facility] Performing Organization Address [facility] Phone Number [address] [address] [phone] [place] Urine culture (02/09/2019 3:35 PM CDT) Result RENETTA GLABRATA (A) [facility] Specimen Urine Performing Organization Address [facility] Phone Number [address] [address] [phone] [place] Blood Culture - Routine (Left Venipuncture) (02/09/2019 2:54 PM CDT) Result No growth in 5 days [facility] Specimen Blood Performing Organization Address [facility]/Zipcode Phone Number [address] [address] [place] Procalcitonin (02/09/2019 2:53 PM CDT) Procalcitonin 0.12 (H) <0.05 ng/mL [facility] Specimen Blood Narrative Performed At SEPSIS RISK (ng/mL) [facility] Low:0.05-0.50 Intermediate: 0.51-2.00 High: >=2.01 Performing Organization Address [facility] Phone Number [address] [address] [phone] CENTER Troponin I (02/09/2019 2:53 PM CDT) Troponin I <0.01 0.00 - 0.03 ng/mL [facility] Specimen Blood Narrative Performed At Troponin I (TnI) levels must be interpreted [facility] in the context of the presenting symptoms and the clinical findings. Elevated TnI levels indicate myocardial damage, but are not specific for ischemic heart disease. Elevated TnI levels are seen in patients with other cardiac conditions (including myocarditis and congestive heart failure), and slight TnI elevations occur in patients with other conditions, including sepsis, renal failure, acidosis, acute neurological disease, and persistent tachyarrhythmia. Performing Organization Address [facility] [facility] Phone Number [address] [address] [place] Lactic acid, venous (02/09/2019 2:53 PM CDT) Lactate, Venous 1.3Comment: Specimen 0.5 - 2.2 mmol/L [facility] moderately hemolyzed [facility] Specimen Blood Performing Organization Address [facility] Phone Number [address] [address] [phone] [place] Prothrombin time/INR (02/09/2019 2:53 PM CDT)Only the most recent of2 resultswithin the time period is included. Protime 16.0 (H) 11.7 - 14.7 seconds [facility] INR 1.3 <=5.9 [facility] Specimen Blood Narrative Performed At RECOMMENDED COUMADIN/WARFARIN INR THERAPY [facility] RANGES STANDARD DOSE: 2.0 - 3.0 Includes: PROPHYLAXIS for venous thrombosis, systemic embolization; TREATMENT for venous thrombosis and/or pulmonary embolus. HIGH RISK: Target INR is 2.5-3.5 for patients with mechanical heart valves. Performing Organization Address [facility]/Zipcode Phone Number [address] [address] CENTER Fibrinogen (02/09/2019 2:53 PM CDT) Fibrinogen 718 (H) 225 - 434 mg/dl [facility] Specimen Blood Performing Organization Address [facility] Phone Number [address] [address] C[place] Ammonia (02/09/2019 2:53 PM CDT) Ammonia 17 (L)Comment: Specimen 18 - 72 mol/L [facility] moderately hemolyzed [facility] Specimen Blood Performing Organization Address [facility] Phone Number [address] [address] [place] STOOL PATH CHARGE (02/02/2019 1:35 PM CDT) Pathogen exam charged Done [facility] Specimen Stool Performing Organization Address [facility] Phone Number [address] [address] [place] Shiga Toxin Screen (02/02/2019 1:35 PM CDT) Shiga toxin 1 Not detected Not detected [facility] Shiga toxin 2 Not detected Not detected [facility] Specimen Stool Narrative Performed At Resubmit new specimen if clinically [facility] indicated. Performing Organization Address [facility] Phone Number [address] [address] [place] Stool culture + Shiga toxin (02/02/2019 1:35 PM CDT) Result No Salmonella, Shigella or [facility] Campylobacter isolated [facility] Specimen Stool Performing Organization Address [facility]/Zipcode Phone Number [address] [address] [phone] [place] Protein, body fluid (02/01/2019 4:55 PM CDT) Protein, Fluid 4.6 g/dL [facility] Specimen Body Fluid Narrative Performed At Absence of reference range indicates that [facility] normals have not been defined. Assay performance has not been validated for this type of specimen. Performing Organization Address City/[facility] Phone Number [facility] [address] [place] [address] CENTER CBC (Hemogram only) (02/01/2019 12:20 PM CDT) WBC 9.6 3.5 - 10.5 K/L [facility] RBC 2.77 (L) 3.93 - 5.22 M/L [facility] Hemoglobin 9.1 (L) 11.2 - 15.7 GM/DL [facility] Hematocrit 28.9 (L) 34.1 - 44.9 % [facility] MCV 104.3 (H) 79.4 - 94.8 fL [facility] MCH 32.9 (H) 25.6 - 32.2 pg [facility] MCHC 31.5 (L) 32.2 - 35.5 GM/DL [facility] RDW 13.7 11.7 - 14.4 % [facility] Platelets 318 150 - 450 K/CU MM [facility] MPV 8.3 (L) 9.4 - 12.3 fL [facility] nRBC 0 0 - 0 /100 WBC [facility] Specimen Blood Performing Organization Address City/State/Zipcode Phone Number [facility] [address] [place] [address] CENTER after 03/14/2018 Insurance Payer Benefit Plan / Group Subscriber ID Type Phone Address MEDICARE MEDICARE A B xxxxxxxxxxx Medicare MEDICAID MEDICAID [facility] xxxxxxxxx Medicaid Advance Directives For more information, please contact:[address] [phone] Code Status Date Activated Date Inactivated Comments Full Code 02/09/2019 6:02 PM 02/20/2019 11:35 PM This code status was determined by: Patient Full Code 01/31/2019 10:57 PM 02/03/2019 7:00 PM This code status was determined by: Patient
--- OUTSIDE RECORDS SUMMARY | 2019-03-15 08:26 | XMS REPORT ---
:1955 [facility] [place] [address] Care Team Providers Name Role Phone DANIELLE BOYER JEANNIE Unavailable Unavailable MADISON DOUGLAS Unavailable Unavailable Problems This patient has no known problems. Allergies, Adverse Reactions, Alerts This patient has no known allergies or adverse reactions. Medications This patient has no known medications. Results Test Description Test Time Test Comments Text Results Atomic Results Result Comments CBC W/PLT COUNT & AUTO DIFFERENTIAL 2019-02-20 12:08:00 Test Item Value Reference Range Comments WHITE BLOOD CELL COUNT (BEAKER) (test xwby=694) 5.1 K/ L 3.5-10.5 RED BLOOD CELL COUNT (BEAKER) (test bfif=452) 2.77 M/ L 3.93-5.22 HEMOGLOBIN (BEAKER) (test xaos=192) 8.4 GM/DL 11.2-15.7 HEMATOCRIT (BEAKER) (test aqyu=565) 26.7 % 34.1-44.9 MEAN CORPUSCULAR VOLUME (BEAKER) (test xcqy=619) 96.4 fL 79.4-94.8 MEAN CORPUSCULAR HEMOGLOBIN (BEAKER) (test rtgm=463) 30.3 pg 25.6-32.2 MEAN CORPUSCULAR HEMOGLOBIN CONC (BEAKER) (test fomd=998) 31.5 GM/DL 32.2- 35.5 RED CELL DISTRIBUTION WIDTH (BEAKER) (test gfcu=841) 15.5 % 11.7-14.4 PLATELET COUNT (BEAKER) (test ysvf=018) 179 K/CU MM 150-450 MEAN PLATELET VOLUME (BEAKER) (test ysqo=954) 10.2 fL 9.4-12.3 NUCLEATED RED BLOOD CELLS (BEAKER) (test wdyq=694) 0 /100 WBC 0-0 (CELLAVISION MANUAL DIFF)2019-02-20 12:08:00 Test Item Value Reference Range Comments NEUTROPHILS - REL (CELLAVISION)(BEAKER) (test 86 % chgq=7418) LYMPHOCYTES - REL (CELLAVISION)(BEAKER) (test 7 % qwqu=8283) MONOCYTES - REL (CELLAVISION)(BEAKER) (test 1 % nrxi=1555) METAMYELOCYTES - REL (CELLAVISION)(BEAKER) (test 3 % 0-0 ozof=5261) BANDS - REL (CELLAVISION)(BEAKER) (test 3 % 0-10 vizc=2322) NEUTROPHILS - ABS (CELLAVISION)(BEAKER) (test 4.39 K/ul 1.56-6.13 gjwg=9372) LYMPHOCYTES - ABS (CELLAVISION)(BEAKER) (test 0.36 K/ul 1.18-3.74 jhdr=0972) MONOCYTES - ABS (CELLAVISION)(BEAKER) (test 0.05 K/uL 0.24-0.36 glor=9103) METAMYELOCYTES - ABS (CELLAVISION)(BEAKER) (test 0.15 K/uL 0.00-0.00 spdh=9249) BANDS - ABS (CELLAVISION)(BEAKER) (test 0.15 K/uL 0.00-0.80 oyug=4051) TOTAL COUNTED (BEAKER) (test nptv=8356) 100 SMUDGE CELLS (BEAKER) (test wbcm=7747) Present LARGE PLT(BEAKER) (test zwel=1947) Present ANISOCYTOSIS (BEAKER) (test jrou=523) 1+ few POIKILOCYTES (BEAKER) (test fpgv=034) 1+ few SCHISTOCYTES (BEAKER) (test mmlw=486) 1+ few ELLIPTOCYTES (BEAKER) (test vdhr=840) 2+ moderate VIDHI CELLS (BEAKER) (test xstn=106) 2+ moderate ARTIFACT (CELLAVISION)(BEAKER) (test jden=2730) Present PLATELET CONCENTRATION (CELLAVISION)(BEAKER) Adequate (test yoou=8516) Received comment: User comments: Slide comments: WBC: SEGMENTED WITH TOXIC GRANULATION PRESENTBASIC METABOLIC [id number] 07:54:00 Test Item Value Reference Range Comments SODIUM (BEAKER) (test 140 meq/L 136-145 ptlv=025) POTASSIUM (BEAKER) (test 3.4 meq/L 3.5-5.1 ampo=346) CHLORIDE (BEAKER) (test 107 meq/L 98-107 iheu=170) CO2 (BEAKER) (test 26 meq/L 22-29 cllo=582) BLOOD UREA NITROGEN 14 mg/dL 7-21 (BEAKER) (test koyz=147) CREATININE (BEAKER) (test 1.71 mg/dL 0.57-1.25 xslw=911) GLUCOSE RANDOM (BEAKER) 104 mg/dL 70-105 (test puub=188) CALCIUM (BEAKER) (test 7.8 mg/dL 8.4-10.2 gaqq=882) EGFR (BEAKER) (test 37 mL/min/1.73 sq m ESTIMATED GFR IS NOT tlja=6195) ACCURATE CREATININE CLEARANCE IN PREDICTING GLOMERULAR FILTRATION RATE. ESTIMATED GFR IS NOT APPLICABLE FOR DIALYSIS PATIENTS. [id number] 07:48:00 Test Item Value Reference Range Comments PHOSPHORUS (BEAKER) (test hfjn=082) 1.9 mg/dL 2.3-4.7 [id number] 07:48:00 Test Item Value Reference Range Comments MAGNESIUM (BEAKER) (test gtvd=737) 1.5 mg/dL 1.6-2.6 HEPATIC FUNCTION [id number] 07:48:00 Test Item Value Reference Range Comments TOTAL PROTEIN (BEAKER) (test veup=246) 5.4 gm/dL 6.0-8.3 ALBUMIN (BEAKER) (test squx=7047) 2.9 g/dL 3.5-5.0 BILIRUBIN TOTAL (BEAKER) (test rkmq=652) 1.0 mg/dL 0.2-1.2 BILIRUBIN DIRECT (BEAKER) (test qilz=167) 0.6 mg/dL 0.1-0.5 ALKALINE PHOSPHATASE (BEAKER) (test sgyn=690) 47 U/L 40-150 AST (SGOT) (BEAKER) (test ljhs=219) 44 U/L 5-34 ALT (SGPT) (BEAKER) (test mwyo=502) 22 U/L 6-55 CREATINE KINASE (CK)2019-02-20 07:48:00 Test Item Value Reference Range Comments CREATINE KINASE TOTAL (BEAKER) (test vhtq=726) 39 U/L 29-200 [id number] 07:48:00 Test Item Value Reference Range Comments PHOSPHORUS (BEAKER) (test cufg=726) 2.0 mg/dL 2.3-4.7 [id number] 07:48:00 Test Item Value Reference Range Comments MAGNESIUM (BEAKER) (test yrkt=424) 1.7 mg/dL 1.6-2.6 BASIC METABOLIC [id number] 07:48:00 Test Item Value Reference Range Comments SODIUM (BEAKER) (test 142 meq/L 136-145 fjyr=786) POTASSIUM (BEAKER) (test 3.3 meq/L 3.5-5.1 yvkf=849) CHLORIDE (BEAKER) (test 106 meq/L 98-107 qsud=680) CO2 (BEAKER) (test 26 meq/L 22-29 ruut=124) BLOOD UREA NITROGEN 19 mg/dL 7-21 (BEAKER) (test gbpn=614) CREATININE (BEAKER) (test 1.97 mg/dL 0.57-1.25 ducp=666) GLUCOSE RANDOM (BEAKER) 113 mg/dL 70-105 (test rvbu=246) CALCIUM (BEAKER) (test 8.1 mg/dL 8.4-10.2 zdqk=361) EGFR (BEAKER) (test 31 mL/min/1.73 sq m ESTIMATED GFR IS NOT sbcz=0183) ACCURATE CREATININE CLEARANCE IN PREDICTING GLOMERULAR FILTRATION RATE. ESTIMATED GFR IS NOT APPLICABLE FOR DIALYSIS PATIENTS. HEPATIC FUNCTION [id number] 07:48:00 Test Item Value Reference Range Comments TOTAL PROTEIN (BEAKER) (test hdjr=813) 5.7 gm/dL 6.0-8.3 ALBUMIN (BEAKER) (test wnbr=1245) 3.1 g/dL 3.5-5.0 BILIRUBIN TOTAL (BEAKER) (test swkh=206) 1.3 mg/dL 0.2-1.2 BILIRUBIN DIRECT (BEAKER) (test zsdd=999) 0.8 mg/dL 0.1-0.5 ALKALINE PHOSPHATASE (BEAKER) (test itqt=145) 51 U/L 40-150 AST (SGOT) (BEAKER) (test jiqh=328) 30 U/L 5-34 ALT (SGPT) (BEAKER) (test ehfp=878) 15 U/L 6-55 CBC W/PLT COUNT & AUTO [id number] 07:29:00 Test Item Value Reference Range Comments WHITE BLOOD CELL COUNT (BEAKER) (test dcoh=015) 5.5 K/ L 3.5-10.5 RED BLOOD CELL COUNT (BEAKER) (test viqc=281) 2.97 M/ L 3.93-5.22 HEMOGLOBIN (BEAKER) (test ulve=193) 9.2 GM/DL 11.2-15.7 HEMATOCRIT (BEAKER) (test xdxz=873) 27.9 % 34.1-44.9 MEAN CORPUSCULAR VOLUME (BEAKER) (test mayd=145) 93.9 fL 79.4-94.8 MEAN CORPUSCULAR HEMOGLOBIN (BEAKER) (test 31.0 pg 25.6-32.2 bmra=756) MEAN CORPUSCULAR HEMOGLOBIN CONC (BEAKER) (test 33.0 GM/DL 32.2-35.5 samt=891) RED CELL DISTRIBUTION WIDTH (BEAKER) (test 15.9 % 11.7-14.4 llyk=785) PLATELET COUNT (BEAKER) (test tmkv=774) 177 K/CU MM 150-450 MEAN PLATELET VOLUME (BEAKER) (test ffjz=429) 10.0 fL 9.4-12.3 NUCLEATED RED BLOOD CELLS (BEAKER) (test 0 /100 WBC 0-0 ryfk=505) NEUTROPHILS RELATIVE PERCENT (BEAKER) (test 78 % pmqe=882) LYMPHOCYTES RELATIVE PERCENT (BEAKER) (test 18 % qrvt=967) MONOCYTES RELATIVE PERCENT (BEAKER) (test 2 % wldi=657) EOSINOPHILS RELATIVE PERCENT (BEAKER) (test 1 % xlef=634) BASOPHILS RELATIVE PERCENT (BEAKER) (test 0 % kzlz=081) NEUTROPHILS ABSOLUTE COUNT (BEAKER) (test 4.29 K/ L 1.56-6.13 nkug=270) LYMPHOCYTES ABSOLUTE COUNT (BEAKER) (test 1.00 K/ L 1.18-3.74 iaiu=209) MONOCYTES ABSOLUTE COUNT (BEAKER) (test 0.11 K/ L 0.24-0.36 dktc=286) EOSINOPHILS ABSOLUTE COUNT (BEAKER) (test 0.04 K/ L 0.04-0.36 hqcy=899) BASOPHILS ABSOLUTE COUNT (BEAKER) (test 0.02 K/ L 0.01-0.08 hazq=142) IMMATURE GRANULOCYTES-RELATIVE PERCENT (BEAKER) 0 % 0-1 (test hpdx=2610) U/S, [id number] 17:56:00Reason for exam:->ascitesFINAL REPORT Ultrasound-guided paracentesis. Clinical History: Ascites Informed consent was obtained from the patient and the risks of the procedure were explained including bleeding, infection, bowel perforation and visceral injury. Sedation: 1% Xylocaine was used as local sedation. Conscious sedation protocol was not utilized as no systemic analgesia was administered. Technique: Using sterile technique, ultrasound guidance and a 5 Spanish coaxial needle, a single pass right lower [...] yielding 3600 cc of fluid Signed: Brian Segundoeport Verified Date/Time: 02/18/2019 17:56:45 Reading Location: [address] Consult Reading Room [facility] METABOLIC [id number] 10:29:00 Test Item Value Reference Range Comments SODIUM (BEAKER) (test 136 meq/L 136-145 mwaa=336) POTASSIUM (BEAKER) (test 3.2 meq/L 3.5-5.1 jswn=910) CHLORIDE (BEAKER) (test 106 meq/L 98-107 yuos=781) CO2 (BEAKER) (test 21 meq/L 22-29 mykw=401) BLOOD UREA NITROGEN 21 mg/dL 7-21 (BEAKER) (test civw=477) CREATININE (BEAKER) (test 2.30 mg/dL 0.57-1.25 ejzq=017) GLUCOSE RANDOM (BEAKER) 100 mg/dL 70-105 (test ltyn=290) CALCIUM (BEAKER) (test 7.9 mg/dL 8.4-10.2 rkdf=375) EGFR (BEAKER) (test 26 mL/min/1.73 sq m ESTIMATED GFR IS NOT xyqd=3416) ACCURATE CREATININE CLEARANCE IN PREDICTING GLOMERULAR FILTRATION RATE. ESTIMATED GFR IS NOT APPLICABLE FOR DIALYSIS PATIENTS. [id number] 10:16:00 Test Item Value Reference Range Comments PHOSPHORUS (BEAKER) (test pcmj=041) 1.9 mg/dL 2.3-4.7 [id number] 10:16:00 Test Item Value Reference Range Comments MAGNESIUM (BEAKER) (test oaux=595) 2.0 mg/dL 1.6-2.6 HEPATIC FUNCTION [id number] 10:16:00 Test Item Value Reference Range Comments TOTAL PROTEIN (BEAKER) (test ewcw=402) 6.6 gm/dL 6.0-8.3 ALBUMIN (BEAKER) (test wmmd=3679) 3.3 g/dL 3.5-5.0 BILIRUBIN TOTAL (BEAKER) (test etfy=387) 1.2 mg/dL 0.2-1.2 BILIRUBIN DIRECT (BEAKER) (test axto=721) 0.6 mg/dL 0.1-0.5 ALKALINE PHOSPHATASE (BEAKER) (test mnfq=585) 51 U/L 40-150 AST (SGOT) (BEAKER) (test izna=903) 30 U/L 5-34 ALT (SGPT) (BEAKER) (test iixc=855) 16 U/L 6-55 [id number] 06:55:00 Test Item Value Reference Range Comments PROTIME (BEAKER) (test ekro=218) 15.1 seconds 11.7-14.7 INR (BEAKER) (test yrio=459) 1.2 <=5.9 PARTIAL THROMBOPLASTIN TIME (BEAKER) (test 31.5 seconds 22.5-36.0 mips=896) RECOMMENDED COUMADIN/WARFARIN INR THERAPY RANGESSTANDARD DOSE: 2.0 - 3.0 Includes: PROPHYLAXIS forvenous thrombosis, systemic embolization; TREATMENT for venous thrombosis and/or pulmonary embolus.HIGH RISK: Target INR is 2.5-3.5 for patients with mechanical heart valves.For paracentesisFor paracentesisCBC W/PLT COUNT & AUTO [id number] 06:51:00 Test Item Value Reference Range Comments WHITE BLOOD CELL COUNT (BEAKER) (test pgwv=649) 6.0 K/ L 3.5-10.5 RED BLOOD CELL COUNT (BEAKER) (test cmeu=494) 2.89 M/ L 3.93-5.22 HEMOGLOBIN (BEAKER) (test xozd=977) 8.9 GM/DL 11.2-15.7 HEMATOCRIT (BEAKER) (test umih=778) 27.4 % 34.1-44.9 MEAN CORPUSCULAR VOLUME (BEAKER) (test uqbi=160) 94.8 fL 79.4-94.8 MEAN CORPUSCULAR HEMOGLOBIN (BEAKER) (test 30.8 pg 25.6-32.2 zame=650) MEAN CORPUSCULAR HEMOGLOBIN CONC (BEAKER) (test 32.5 GM/DL 32.2-35.5 agyf=556) RED CELL DISTRIBUTION WIDTH (BEAKER) (test 16.2 % 11.7-14.4 qnmm=894) PLATELET COUNT (BEAKER) (test ftoj=049) 161 K/CU MM 150-450 MEAN PLATELET VOLUME (BEAKER) (test yget=865) 9.8 fL 9.4-12.3 NUCLEATED RED BLOOD CELLS (BEAKER) (test 0 /100 WBC 0-0 wnah=359) NEUTROPHILS RELATIVE PERCENT (BEAKER) (test 77 % kpbt=823) LYMPHOCYTES RELATIVE PERCENT (BEAKER) (test 18 % opef=677) MONOCYTES RELATIVE PERCENT (BEAKER) (test 4 % odiv=301) EOSINOPHILS RELATIVE PERCENT (BEAKER) (test 1 % xled=131) BASOPHILS RELATIVE PERCENT (BEAKER) (test 0 % tvis=103) NEUTROPHILS ABSOLUTE COUNT (BEAKER) (test 4.64 K/ L 1.56-6.13 yury=083) LYMPHOCYTES ABSOLUTE COUNT (BEAKER) (test 1.10 K/ L 1.18-3.74 qbfu=532) MONOCYTES ABSOLUTE COUNT (BEAKER) (test 0.23 K/ L 0.24-0.36 snci=519) EOSINOPHILS ABSOLUTE COUNT (BEAKER) (test 0.03 K/ L 0.04-0.36 kvid=802) BASOPHILS ABSOLUTE COUNT (BEAKER) (test 0.01 K/ L 0.01-0.08 lqiv=352) IMMATURE GRANULOCYTES-RELATIVE PERCENT (BEAKER) 1 % 0-1 (test qcaj=1736) BASIC METABOLIC [id number] 09:31:00 Test Item Value Reference Range Comments SODIUM (BEAKER) (test 139 meq/L 136-145 yjyi=988) POTASSIUM (BEAKER) (test 3.5 meq/L 3.5-5.1 mgck=084) CHLORIDE (BEAKER) (test 106 meq/L 98-107 ssuo=509) CO2 (BEAKER) (test 23 meq/L 22-29 keuo=342) BLOOD UREA NITROGEN 20 mg/dL 7-21 (BEAKER) (test jtan=369) CREATININE (BEAKER) (test 2.29 mg/dL 0.57-1.25 qbbw=637) GLUCOSE RANDOM (BEAKER) 130 mg/dL 70-105 (test hnvm=496) CALCIUM (BEAKER) (test 7.8 mg/dL 8.4-10.2 dhbi=954) EGFR (BEAKER) (test 26 mL/min/1.73 sq m ESTIMATED GFR IS NOT mbjc=6291) ACCURATE CREATININE CLEARANCE IN PREDICTING GLOMERULAR FILTRATION RATE. ESTIMATED GFR IS NOT APPLICABLE FOR DIALYSIS PATIENTS. COMPREHENSIVE METABOLIC [id number] 09:31:00 Test Item Value Reference Range Comments TOTAL PROTEIN (BEAKER) 5.9 gm/dL 6.0-8.3 (test cuob=669) ALBUMIN (BEAKER) (test 3.2 g/dL 3.5-5.0 hqax=8899) ALKALINE PHOSPHATASE 46 U/L 40-150 (BEAKER) (test plab=032) BILIRUBIN TOTAL (BEAKER) 0.8 mg/dL 0.2-1.2 (test njfs=546) SODIUM (BEAKER) (test 139 meq/L 136-145 tcbk=919) POTASSIUM (BEAKER) (test 3.5 meq/L 3.5-5.1 blwb=410) CHLORIDE (BEAKER) (test 106 meq/L 98-107 ieyi=906) CO2 (BEAKER) (test 23 meq/L 22-29 fyvp=952) BLOOD UREA NITROGEN 20 mg/dL 7-21 (BEAKER) (test whjm=912) CREATININE (BEAKER) (test 2.29 mg/dL 0.57-1.25 sexk=364) GLUCOSE RANDOM (BEAKER) 130 mg/dL 70-105 (test lxmf=551) CALCIUM (BEAKER) (test 7.8 mg/dL 8.4-10.2 luqh=488) AST (SGOT) (BEAKER) (test 32 U/L 5-34 fhya=615) ALT (SGPT) (BEAKER) (test 16 U/L 6-55 vebw=794) EGFR (BEAKER) (test 26 mL/min/1.73 sq m ESTIMATED GFR IS NOT wdsi=4692) ACCURATE CREATININE CLEARANCE IN PREDICTING GLOMERULAR FILTRATION RATE. ESTIMATED GFR IS NOT APPLICABLE FOR DIALYSIS PATIENTS. [id number] 09:30:00 Test Item Value Reference Range Comments PHOSPHORUS (BEAKER) (test qlsj=524) 2.5 mg/dL 2.3-4.7 URIC [id number] 09:30:00 Test Item Value Reference Range Comments URIC ACID (BEAKER) (test bdln=445) 8.7 mg/dL 2.6-7.2 HEPATIC FUNCTION [id number] 09:30:00 Test Item Value Reference Range Comments TOTAL PROTEIN (BEAKER) (test gyvj=139) 5.9 gm/dL 6.0-8.3 ALBUMIN (BEAKER) (test nsjq=8156) 3.2 g/dL 3.5-5.0 BILIRUBIN TOTAL (BEAKER) (test jghs=540) 0.8 mg/dL 0.2-1.2 BILIRUBIN DIRECT (BEAKER) (test nfwr=337) 0.5 mg/dL 0.1-0.5 ALKALINE PHOSPHATASE (BEAKER) (test yncn=966) 46 U/L 40-150 AST (SGOT) (BEAKER) (test spje=113) 32 U/L 5-34 ALT (SGPT) (BEAKER) (test ojej=260) 16 U/L 6-55 CALCIUM, [id number] 08:41:00 Test Item Value Reference Range Comments CALCIUM IONIZED (BEAKER) (test nufs=830) 0.92 mmol/L 1.12-1.27 PH, BLOOD (BEAKER) (test eoph=0603) 7.41 [id number] 08:38:00 Test Item Value Reference Range Comments MAGNESIUM (BEAKER) (test sqbi=292) 1.8 mg/dL 1.6-2.6 CBC W/PLT COUNT & AUTO [id number] 08:34:00 Test Item Value Reference Range Comments WHITE BLOOD CELL COUNT (BEAKER) (test uuqy=421) 6.1 K/ L 3.5-10.5 RED BLOOD CELL COUNT (BEAKER) (test eacr=192) 2.29 M/ L 3.93-5.22 HEMOGLOBIN (BEAKER) (test zrhh=055) 7.1 GM/DL 11.2-15.7 HEMATOCRIT (BEAKER) (test rhwo=908) 22.6 % 34.1-44.9 MEAN CORPUSCULAR VOLUME (BEAKER) (test epjg=152) 98.7 fL 79.4-94.8 MEAN CORPUSCULAR HEMOGLOBIN (BEAKER) (test 31.0 pg 25.6-32.2 kvgp=051) MEAN CORPUSCULAR HEMOGLOBIN CONC (BEAKER) (test 31.4 GM/DL 32.2-35.5 fqyq=467) RED CELL DISTRIBUTION WIDTH (BEAKER) (test 13.9 % 11.7-14.4 jidn=360) PLATELET COUNT (BEAKER) (test tpqg=788) 193 K/CU MM 150-450 MEAN PLATELET VOLUME (BEAKER) (test dhik=286) 9.0 fL 9.4-12.3 NUCLEATED RED BLOOD CELLS (BEAKER) (test 0 /100 WBC 0-0 canl=272) NEUTROPHILS RELATIVE PERCENT (BEAKER) (test 80 % cnap=777) LYMPHOCYTES RELATIVE PERCENT (BEAKER) (test 16 % eprw=928) MONOCYTES RELATIVE PERCENT (BEAKER) (test 4 % aljl=142) EOSINOPHILS RELATIVE PERCENT (BEAKER) (test 0 % ovqa=626) BASOPHILS RELATIVE PERCENT (BEAKER) (test 0 % rznr=938) NEUTROPHILS ABSOLUTE COUNT (BEAKER) (test 4.88 K/ L 1.56-6.13 estc=413) LYMPHOCYTES ABSOLUTE COUNT (BEAKER) (test 0.95 K/ L 1.18-3.74 ktok=859) MONOCYTES ABSOLUTE COUNT (BEAKER) (test 0.23 K/ L 0.24-0.36 rcrs=049) EOSINOPHILS ABSOLUTE COUNT (BEAKER) (test 0.00 K/ L 0.04-0.36 xmfc=585) BASOPHILS ABSOLUTE COUNT (BEAKER) (test 0.01 K/ L 0.01-0.08 sray=615) IMMATURE GRANULOCYTES-RELATIVE PERCENT (BEAKER) 1 % 0-1 (test yfqf=0257) C. DIFFICILE GDH [id number] 19:27:00 Test Item Value Reference Range Comments CDT TOXIN (test Negative Negative kgit=[id number]) CDT GDH ANTIGEN (test Negative Negative No indication of Clostridium deqx=[id number]) difficile infection and no colonization. Discontinue enteric isolation and therapy. Testing performed by [employer] Rapid Cassette Assay. For GDH, published sensitivity of the assay is 98.7% compared to cytotoxicity testing. For Toxin AB, published sensitivity is 87.8% and specificity 99.4% compared to cytotoxicity testing.Verification of kit performance was done by the [facility] prior to clinical use.CBC W/PLT COUNT & AUTO [id number] 13:33:00 Test Item Value Reference Range Comments WHITE BLOOD CELL COUNT (BEAKER) (test fxhk=653) 7.3 K/ L 3.5-10.5 RED BLOOD CELL COUNT (BEAKER) (test wltd=018) 2.43 M/ L 3.93-5.22 HEMOGLOBIN (BEAKER) (test duqp=495) 7.6 GM/DL 11.2-15.7 HEMATOCRIT (BEAKER) (test wclp=401) 24.4 % 34.1-44.9 MEAN CORPUSCULAR VOLUME (BEAKER) (test fbgt=074) 100.4 fL 79.4-94.8 MEAN CORPUSCULAR HEMOGLOBIN (BEAKER) (test 31.3 pg 25.6-32.2 fzuf=643) MEAN CORPUSCULAR HEMOGLOBIN CONC (BEAKER) (test 31.1 GM/DL 32.2-35.5 aynl=692) RED CELL DISTRIBUTION WIDTH (BEAKER) (test 14.1 % 11.7-14.4 wjgw=849) PLATELET COUNT (BEAKER) (test cpst=894) 214 K/CU MM 150-450 MEAN PLATELET VOLUME (BEAKER) (test lygd=409) 8.7 fL 9.4-12.3 NUCLEATED RED BLOOD CELLS (BEAKER) (test 0 /100 WBC 0-0 yqkn=678) (MANUAL DIFFERENTIAL)[id number] 13:33:00 Test Item Value Reference Range Comments NEUTROPHILS - REL (DIFF) (BEAKER) (test nbxd=7653) 74 % LYMPHOCYTES - REL (DIFF) (BEAKER) (test dkfg=2217) 14 % MONOCYTES - REL (DIFF) (BEAKER) (test apqb=5354) 10 % EOSINOPHILS - REL (DIFF) (BEAKER) (test vmdq=7880) 1 % BASOPHILS - REL (DIFF) (BEAKER) (test cbbu=8253) 1 % NEUTROPHILS - ABS (DIFF) (BEAKER) (test gbzq=5259) 5.40 K/ L 1.80-8.00 LYMPHOCYTES - ABS (DIFF) (BEAKER) (test jfoy=4280) 1.02 K/ L 1.48-4.50 MONOCYTES - ABS (DIFF) (BEAKER) (test htkl=8487) 0.73 K/ L 0.00-1.30 EOSINOPHILS - ABS (DIFF) (BEAKER) (test elbq=2674) 0.07 K/ L 0.00-0.50 BASOPHILS - ABS (DIFF) (BEAKER) (test yolp=9003) 0.07 K/ L 0.00-0.20 TOTAL COUNTED (BEAKER) (test adcd=4987) 100 WBC MORPHOLOGY (BEAKER) (test wmqh=073) Normal PLT MORPHOLOGY (BEAKER) (test mztx=852) Normal RBC MORPHOLOGY (BEAKER) (test bskf=258) Normal CALCIUM, [id number] 08:55:00 Test Item Value Reference Range Comments CALCIUM IONIZED (BEAKER) (test qsmp=595) 0.81 mmol/L 1.12-1.27 PH, BLOOD (BEAKER) (test tvso=9964) 7.38 COMPREHENSIVE METABOLIC [id number] 07:16:00 Test Item Value Reference Range Comments TOTAL PROTEIN (BEAKER) 6.3 gm/dL 6.0-8.3 (test fibo=356) ALBUMIN (BEAKER) (test 3.5 g/dL 3.5-5.0 rovn=5304) ALKALINE PHOSPHATASE 39 U/L 40-150 (BEAKER) (test zews=205) BILIRUBIN TOTAL (BEAKER) 1.3 mg/dL 0.2-1.2 (test ukax=907) SODIUM (BEAKER) (test 140 meq/L 136-145 bbpc=454) POTASSIUM (BEAKER) (test 3.6 meq/L 3.5-5.1 kzvh=471) CHLORIDE (BEAKER) (test 109 meq/L 98-107 lnfx=754) CO2 (BEAKER) (test 19 meq/L 22-29 hhol=581) BLOOD UREA NITROGEN 16 mg/dL 7-21 (BEAKER) (test pird=263) CREATININE (BEAKER) (test 2.52 mg/dL 0.57-1.25 wxjx=099) GLUCOSE RANDOM (BEAKER) 116 mg/dL 70-105 (test nbmv=737) CALCIUM (BEAKER) (test 8.4 mg/dL 8.4-10.2 xiqu=700) AST (SGOT) (BEAKER) (test 25 U/L 5-34 ihtg=885) ALT (SGPT) (BEAKER) (test 13 U/L 6-55 rtiz=001) EGFR (BEAKER) (test 23 mL/min/1.73 sq m ESTIMATED GFR IS NOT hylj=7452) ACCURATE CREATININE CLEARANCE IN PREDICTING GLOMERULAR FILTRATION RATE. ESTIMATED GFR IS NOT APPLICABLE FOR DIALYSIS PATIENTS. BASIC METABOLIC [id number] 07:15:00 Test Item Value Reference Range Comments SODIUM (BEAKER) (test 140 meq/L 136-145 pezv=637) POTASSIUM (BEAKER) (test 3.6 meq/L 3.5-5.1 lptb=566) CHLORIDE (BEAKER) (test 109 meq/L 98-107 lbmt=833) CO2 (BEAKER) (test 19 meq/L 22-29 zphl=755) BLOOD UREA NITROGEN 16 mg/dL 7-21 (BEAKER) (test ljzy=700) CREATININE (BEAKER) (test 2.52 mg/dL 0.57-1.25 okru=717) GLUCOSE RANDOM (BEAKER) 116 mg/dL 70-105 (test svrk=749) CALCIUM (BEAKER) (test 8.4 mg/dL 8.4-10.2 olvh=826) EGFR (BEAKER) (test 23 mL/min/1.73 sq m ESTIMATED GFR IS NOT ivru=3802) ACCURATE CREATININE CLEARANCE IN PREDICTING GLOMERULAR FILTRATION RATE. ESTIMATED GFR IS NOT APPLICABLE FOR DIALYSIS PATIENTS. [id number] 07:10:00 Test Item Value Reference Range Comments PHOSPHORUS (BEAKER) (test puif=797) 1.9 mg/dL 2.3-4.7 [id number] 07:10:00 Test Item Value Reference Range Comments MAGNESIUM (BEAKER) (test hwys=751) 1.9 mg/dL 1.6-2.6 HEPATIC FUNCTION [id number] 07:10:00 Test Item Value Reference Range Comments TOTAL PROTEIN (BEAKER) (test nmdj=747) 6.3 gm/dL 6.0-8.3 ALBUMIN (BEAKER) (test wchm=5462) 3.5 g/dL 3.5-5.0 BILIRUBIN TOTAL (BEAKER) (test oqko=081) 1.3 mg/dL 0.2-1.2 BILIRUBIN DIRECT (BEAKER) (test bdwq=717) 0.8 mg/dL 0.1-0.5 ALKALINE PHOSPHATASE (BEAKER) (test raqy=059) 39 U/L 40-150 AST (SGOT) (BEAKER) (test xnqz=997) 25 U/L 5-34 ALT (SGPT) (BEAKER) (test nlmh=162) 13 U/L 6-55 RAD, CHEST, 1 VIEW, NON [id number] 21:33:00Reason for exam:->PICC LINE TIP VERIFICATIONShould this be performed at the bedside?->YesFINAL REPORT History: PICC line placement. Comparison: 02/13/2019 [...] overt pulmonary edema or acute bony abnormality. Signed:Aneesh Reed MDReport Verified Date/Time: 02/15 21:33:22 Reading Location: [address] Reading Room CBC W/PLT COUNT & AUTO [id number] 11:37:00 Test Item Value Reference Range Comments WHITE BLOOD CELL COUNT (BEAKER) (test tfft=206) 7.1 K/ L 3.5-10.5 RED BLOOD CELL COUNT (BEAKER) (test zswn=056) 2.43 M/ L 3.93-5.22 HEMOGLOBIN (BEAKER) (test eejg=666) 7.7 GM/DL 11.2-15.7 HEMATOCRIT (BEAKER) (test iibs=942) 24.3 % 34.1-44.9 MEAN CORPUSCULAR VOLUME (BEAKER) (test rzaa=833) 100.0 fL 79.4-94.8 MEAN CORPUSCULAR HEMOGLOBIN (BEAKER) (test 31.7 pg 25.6-32.2 tdxt=794) MEAN CORPUSCULAR HEMOGLOBIN CONC (BEAKER) (test 31.7 GM/DL 32.2-35.5 vvuj=599) RED CELL DISTRIBUTION WIDTH (BEAKER) (test 13.8 % 11.7-14.4 hprt=271) PLATELET COUNT (BEAKER) (test lety=867) 216 K/CU MM 150-450 MEAN PLATELET VOLUME (BEAKER) (test cgmu=598) 8.8 fL 9.4-12.3 NUCLEATED RED BLOOD CELLS (BEAKER) (test 0 /100 WBC 0-0 yojw=831) (CELLAVISION MANUAL DIFF)2019-02-15 11:37:00 Test Item Value Reference Range Comments NEUTROPHILS - REL (CELLAVISION)(BEAKER) (test 75 % fgli=3703) LYMPHOCYTES - REL (CELLAVISION)(BEAKER) (test 20 % evkg=4591) MONOCYTES - REL (CELLAVISION)(BEAKER) (test 4 % luup=1817) ATYPICAL LYMPHOCYTES - REL (CELLAVISION)(BEAKER) 1 % 0-0 (test erxk=0633) NEUTROPHILS - ABS (CELLAVISION)(BEAKER) (test 5.33 K/ul 1.56-6.13 dgrw=2778) LYMPHOCYTES - ABS (CELLAVISION)(BEAKER) (test 1.42 K/ul 1.18-3.74 afpr=8024) MONOCYTES - ABS (CELLAVISION)(BEAKER) (test 0.28 K/uL 0.24-0.36 mxot=2494) ATYPICAL LYMPHOCYTES - ABS (CELLAVISION)(BEAKER) 0.07 K/uL 0.00-0.00 (test dtvl=3154) TOTAL COUNTED (BEAKER) (test wenw=1842) 100 WBC MORPHOLOGY (BEAKER) (test xhar=490) Normal LARGE PLT(BEAKER) (test oafp=7061) Present POLYCHROMATOPHILLIC RBCS(BEAKER) (test lbsr=083) 1+ few HYPOCHROMIA (BEAKER) (test tkns=601) 1+ few ARTIFACT (CELLAVISION)(BEAKER) (test qqau=1394) Present PLATELET CONCENTRATION (CELLAVISION)(BEAKER) (test Adequate lexh=4865) Received comment: User comments: Slide comments:CREATININE, RANDOM [id number] 08:13:00 Test Item Value Reference Range Comments CREATININE URINE (BEAKER) (test bjom=983) 166.6 mg/dL Reference Range: No NormalsPROTEIN, RANDOM [id number] 07:32:00 Test Item Value Reference Range Comments PROTEIN, URINE (BEAKER) (test cwzg=3625) 58 mg/dL 0-14 CALCIUM, [id number] 07:05:00 Test Item Value Reference Range Comments CALCIUM IONIZED (BEAKER) (test qldt=101) 0.72 mmol/L 1.12-1.27 PH, BLOOD (BEAKER) (test byne=1592) 7.50 CBC W/PLT COUNT & AUTO [id number] 06:47:00 Test Item Value Reference Range Comments WHITE BLOOD CELL COUNT (BEAKER) (test lkwv=429) 7.2 K/ L 3.5-10.5 RED BLOOD CELL COUNT (BEAKER) (test hvuq=173) 2.42 M/ L 3.93-5.22 HEMOGLOBIN (BEAKER) (test ipxl=162) 7.5 GM/DL 11.2-15.7 HEMATOCRIT (BEAKER) (test xskp=240) 24.2 % 34.1-44.9 MEAN CORPUSCULAR VOLUME (BEAKER) (test jbas=332) 100.0 fL 79.4-94.8 MEAN CORPUSCULAR HEMOGLOBIN (BEAKER) (test 31.0 pg 25.6-32.2 duvt=214) MEAN CORPUSCULAR HEMOGLOBIN CONC (BEAKER) (test 31.0 GM/DL 32.2-35.5 kffp=570) RED CELL DISTRIBUTION WIDTH (BEAKER) (test 14.0 % 11.7-14.4 mgbs=039) PLATELET COUNT (BEAKER) (test ftxc=607) 220 K/CU MM 150-450 MEAN PLATELET VOLUME (BEAKER) (test lcvv=103) 8.5 fL 9.4-12.3 NUCLEATED RED BLOOD CELLS (BEAKER) (test 0 /100 WBC 0-0 mzbs=260) NEUTROPHILS RELATIVE PERCENT (BEAKER) (test 69 % riph=738) LYMPHOCYTES RELATIVE PERCENT (BEAKER) (test 22 % nndy=207) MONOCYTES RELATIVE PERCENT (BEAKER) (test 7 % cpii=536) EOSINOPHILS RELATIVE PERCENT (BEAKER) (test 1 % npaw=013) BASOPHILS RELATIVE PERCENT (BEAKER) (test 1 % nrsn=155) NEUTROPHILS ABSOLUTE COUNT (BEAKER) (test 4.98 K/ L 1.56-6.13 bomv=721) LYMPHOCYTES ABSOLUTE COUNT (BEAKER) (test 1.60 K/ L 1.18-3.74 ospo=387) MONOCYTES ABSOLUTE COUNT (BEAKER) (test 0.53 K/ L 0.24-0.36 uccv=075) EOSINOPHILS ABSOLUTE COUNT (BEAKER) (test 0.04 K/ L 0.04-0.36 zmqu=512) BASOPHILS ABSOLUTE COUNT (BEAKER) (test 0.04 K/ L 0.01-0.08 vezn=776) IMMATURE GRANULOCYTES-RELATIVE PERCENT (BEAKER) 0 % 0-1 (test sats=1566) COMPREHENSIVE METABOLIC [id number] 06:39:00 Test Item Value Reference Range Comments TOTAL PROTEIN (BEAKER) 6.4 gm/dL 6.0-8.3 (test jxzr=168) ALBUMIN (BEAKER) (test 3.6 g/dL 3.5-5.0 yrbq=2737) ALKALINE PHOSPHATASE 32 U/L 40-150 (BEAKER) (test cwuo=384) BILIRUBIN TOTAL (BEAKER) 1.4 mg/dL 0.2-1.2 (test aztk=892) SODIUM (BEAKER) (test 140 meq/L 136-145 nwej=455) POTASSIUM (BEAKER) (test 3.8 meq/L 3.5-5.1 vtdu=613) CHLORIDE (BEAKER) (test 110 meq/L 98-107 ftjh=867) CO2 (BEAKER) (test 19 meq/L 22-29 ygjw=973) BLOOD UREA NITROGEN 15 mg/dL 7-21 (BEAKER) (test ywvc=595) CREATININE (BEAKER) (test 2.30 mg/dL 0.57-1.25 yfrb=322) GLUCOSE RANDOM (BEAKER) 102 mg/dL 70-105 (test xrcd=473) CALCIUM (BEAKER) (test 8.0 mg/dL 8.4-10.2 vhue=547) AST (SGOT) (BEAKER) (test 17 U/L 5-34 yrhe=724) ALT (SGPT) (BEAKER) (test 9 U/L 6-55 zpvv=954) EGFR (BEAKER) (test 26 mL/min/1.73 sq m ESTIMATED GFR IS NOT auzg=9881) ACCURATE CREATININE CLEARANCE IN PREDICTING GLOMERULAR FILTRATION RATE. ESTIMATED GFR IS NOT APPLICABLE FOR DIALYSIS PATIENTS. HEPATIC FUNCTION [id number] 06:23:00 Test Item Value Reference Range Comments TOTAL PROTEIN (BEAKER) (test sfmj=110) 6.4 gm/dL 6.0-8.3 ALBUMIN (BEAKER) (test bbws=7206) 3.6 g/dL 3.5-5.0 BILIRUBIN TOTAL (BEAKER) (test lfsi=235) 1.3 mg/dL 0.2-1.2 BILIRUBIN DIRECT (BEAKER) (test oywl=777) 0.7 mg/dL 0.1-0.5 ALKALINE PHOSPHATASE (BEAKER) (test ahaq=060) 34 U/L 40-150 AST (SGOT) (BEAKER) (test ssfz=396) 19 U/L 5-34 ALT (SGPT) (BEAKER) (test stoh=923) 8 U/L 6-55 [id number] 06:22:00 Test Item Value Reference Range Comments PHOSPHORUS (BEAKER) (test qwrd=514) 2.3 mg/dL 2.3-4.7 [id number] 06:22:00 Test Item Value Reference Range Comments MAGNESIUM (BEAKER) (test nfdx=277) 2.2 mg/dL 1.6-2.6 HEPATIC FUNCTION [id number] 06:22:00 Test Item Value Reference Range Comments TOTAL PROTEIN (BEAKER) (test bnmt=221) 6.4 gm/dL 6.0-8.3 ALBUMIN (BEAKER) (test xpzl=2141) 3.6 g/dL 3.5-5.0 BILIRUBIN TOTAL (BEAKER) (test vuoc=076) 1.4 mg/dL 0.2-1.2 BILIRUBIN DIRECT (BEAKER) (test govv=261) 0.7 mg/dL 0.1-0.5 ALKALINE PHOSPHATASE (BEAKER) (test dbbh=964) 32 U/L 40-150 AST (SGOT) (BEAKER) (test vadg=170) 17 U/L 5-34 ALT (SGPT) (BEAKER) (test lycf=261) 9 U/L 6-55 BLOOD [id number] 20:01:00 Test Item Value Reference Range Comments CULTURE (BEAKER) (test oykf=5747) No growth in 5 days HEMOGLOBIN AND [id number] 13:02:00 Test Item Value Reference Range Comments HEMOGLOBIN (BEAKER) (test gcrb=166) 8.1 GM/DL 11.2-15.7 HEMATOCRIT (BEAKER) (test ooky=581) 25.7 % 34.1-44.9 ANTI-MITOCHONDRIAL AB, REFLEX TO [id number] 12:19:00 Test Item Value Reference Range Comments SCAN RESULT (test wdrq=[id number]) [id number] 07:43:00 Test Item Value Reference Range Comments PHOSPHORUS (BEAKER) (test qxqb=621) 1.3 mg/dL 2.3-4.7 CALCIUM, [id number] 06:25:00 Test Item Value Reference Range Comments CALCIUM IONIZED (BEAKER) (test whcx=381) 1.05 mmol/L 1.12-1.27 PH, BLOOD (BEAKER) (test pqxi=9199) 7.44 COMPREHENSIVE METABOLIC [id number] 06:24:00 Test Item Value Reference Range Comments TOTAL PROTEIN (BEAKER) 6.3 gm/dL 6.0-8.3 (test ajpr=744) ALBUMIN (BEAKER) (test 3.8 g/dL 3.5-5.0 hvul=2083) ALKALINE PHOSPHATASE 31 U/L 40-150 (BEAKER) (test sqdi=136) BILIRUBIN TOTAL (BEAKER) 1.3 mg/dL 0.2-1.2 (test odal=151) SODIUM (BEAKER) (test 141 meq/L 136-145 rkll=854) POTASSIUM (BEAKER) (test 3.5 meq/L 3.5-5.1 gzzx=157) CHLORIDE (BEAKER) (test 110 meq/L 98-107 ghes=895) CO2 (BEAKER) (test 22 meq/L 22-29 hdxb=368) BLOOD UREA NITROGEN 13 mg/dL 7-21 (BEAKER) (test czwr=436) CREATININE (BEAKER) (test 2.36 mg/dL 0.57-1.25 ebzr=663) GLUCOSE RANDOM (BEAKER) 108 mg/dL 70-105 (test gdsa=867) CALCIUM (BEAKER) (test 8.2 mg/dL 8.4-10.2 kitb=964) AST (SGOT) (BEAKER) (test 14 U/L 5-34 jzbo=025) ALT (SGPT) (BEAKER) (test 6 U/L 6-55 dunu=170) EGFR (BEAKER) (test 25 mL/min/1.73 sq m ESTIMATED GFR IS NOT tkny=2302) ACCURATE CREATININE CLEARANCE IN PREDICTING GLOMERULAR FILTRATION RATE. ESTIMATED GFR IS NOT APPLICABLE FOR DIALYSIS PATIENTS. [id number] 06:17:00 Test Item Value Reference Range Comments MAGNESIUM (BEAKER) (test lzaf=195) 2.2 mg/dL 1.6-2.6 CBC W/PLT COUNT & AUTO [id number] 05:33:00 Test Item Value Reference Range Comments WHITE BLOOD CELL COUNT (BEAKER) (test fcfp=121) 5.8 K/ L 3.5-10.5 RED BLOOD CELL COUNT (BEAKER) (test fvdg=923) 2.22 M/ L 3.93-5.22 HEMOGLOBIN (BEAKER) (test fnko=475) 7.0 GM/DL 11.2-15.7 HEMATOCRIT (BEAKER) (test pxmm=804) 22.5 % 34.1-44.9 MEAN CORPUSCULAR VOLUME (BEAKER) (test naja=859) 101.4 fL 79.4-94.8 MEAN CORPUSCULAR HEMOGLOBIN (BEAKER) (test 31.5 pg 25.6-32.2 xccx=337) MEAN CORPUSCULAR HEMOGLOBIN CONC (BEAKER) (test 31.1 GM/DL 32.2-35.5 wkxi=231) RED CELL DISTRIBUTION WIDTH (BEAKER) (test 13.6 % 11.7-14.4 rjqy=836) PLATELET COUNT (BEAKER) (test args=399) 169 K/CU MM 150-450 MEAN PLATELET VOLUME (BEAKER) (test zeaq=574) 8.5 fL 9.4-12.3 NUCLEATED RED BLOOD CELLS (BEAKER) (test 0 /100 WBC 0-0 autg=773) NEUTROPHILS RELATIVE PERCENT (BEAKER) (test 67 % ynjg=420) LYMPHOCYTES RELATIVE PERCENT (BEAKER) (test 22 % dutb=605) MONOCYTES RELATIVE PERCENT (BEAKER) (test 9 % rdjp=841) EOSINOPHILS RELATIVE PERCENT (BEAKER) (test 1 % ssad=039) BASOPHILS RELATIVE PERCENT (BEAKER) (test 1 % umap=352) NEUTROPHILS ABSOLUTE COUNT (BEAKER) (test 3.84 K/ L 1.56-6.13 mzey=717) LYMPHOCYTES ABSOLUTE COUNT (BEAKER) (test 1.28 K/ L 1.18-3.74 rgso=857) MONOCYTES ABSOLUTE COUNT (BEAKER) (test 0.50 K/ L 0.24-0.36 fkrl=367) EOSINOPHILS ABSOLUTE COUNT (BEAKER) (test 0.07 K/ L 0.04-0.36 guon=969) BASOPHILS ABSOLUTE COUNT (BEAKER) (test 0.06 K/ L 0.01-0.08 wzqy=578) IMMATURE GRANULOCYTES-RELATIVE PERCENT (BEAKER) 0 % 0-1 (test hnqf=0893) RAD, CHEST, 1 VIEW, NON [id number] 12:56:00Reason for exam:->edemaShould this be performed at the bedside?->YesFINAL REPORT EXAM: Frontal chest radiograph HISTORY PROVIDED: Edema COMPARISON: 02/09/2019 IMPRESSION:A small left pleural effusion persists with left basilar opacities which may represent atelectasis. Pneumonitis should be excluded clinically. A trace right pleural effusion is suspected. No discernible pneumothorax. No significant pulmonary edema. The cardiac silhouette is magnified. Surgical clips project over the right axilla and right lower neck. No acute osseous abnormality. Signed: Hans Castellano MDReport Verified Date/Time: 2018 12:56:07 Reading Location: [facility] Mammo Reading Room [id number] 11:09: 00Medical Cytology Report Case: [id number] Authorizing Provider: Charles Jaimes NP Collected : 02/09/2019 1600 Ordering Location: [place] [address] ICU Received: 02/10/2019 0805 Pathologist: Ayesha Vance MD Specimen: Peritoneal Fluid PERITONEAL FLUID (CYTOSPINS AND CELL BLOCK): - SCATTERED ATYPICAL CELLS, COMPATIBLE WITH METASTATIC ADENOCARCINOMA (SEE COMMENT) Signing Pathologist Direct Phone Line: [phone] signed by Ayesha Vance MD on 02/13/2019 at 11:09 AMThe patient has a recent sample of peritoneal fluid ([id number]) with metastatic adenocarcinoma. In the current sample , atypical cells with similar features are seen.Please see the prior sample ([id number] -[id number]) for additional evaluation and information. 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 02/03/19(see [id number] )PERITONEAL ESHWJ055 mls yellow; 4 cytospins, cell blockCollected: [id number]: [id number] [facility], Department of Pathology, [address] [place] [address], [facility], [address] [place] [address], [facility], Department of [facility]ology, [address] [place] [address], b-TYPE NATRIURETIC FACTOR (BNP)2019-02-13 10:48:00 Test Item Value Reference Range Comments B-TYPE NATRIURETIC PEPTIDE (BEAKER) (test 107 pg/mL 0-100 cwmj=478) COMPREHENSIVE METABOLIC [id number] 10:41:00 Test Item Value Reference Range Comments TOTAL PROTEIN (BEAKER) 6.8 gm/dL 6.0-8.3 (test gtiw=587) ALBUMIN (BEAKER) (test 4.2 g/dL 3.5-5.0 myqe=2522) ALKALINE PHOSPHATASE 35 U/L 40-150 (BEAKER) (test rixy=422) BILIRUBIN TOTAL (BEAKER) 1.3 mg/dL 0.2-1.2 (test pvew=261) SODIUM (BEAKER) (test 143 meq/L 136-145 ermm=751) POTASSIUM (BEAKER) (test 3.3 meq/L 3.5-5.1 qpuo=338) CHLORIDE (BEAKER) (test 111 meq/L 98-107 ojwh=747) CO2 (BEAKER) (test 20 meq/L 22-29 vpxm=504) BLOOD UREA NITROGEN 12 mg/dL 7-21 (BEAKER) (test etzf=688) CREATININE (BEAKER) (test 2.68 mg/dL 0.57-1.25 gkyx=804) GLUCOSE RANDOM (BEAKER) 97 mg/dL 70-105 (test xjwe=579) CALCIUM (BEAKER) (test 8.6 mg/dL 8.4-10.2 dkbe=737) AST (SGOT) (BEAKER) (test 13 U/L 5-34 ibhh=176) ALT (SGPT) (BEAKER) (test 6 U/L 6-55 coho=609) EGFR (BEAKER) (test 22 mL/min/1.73 sq m ESTIMATED GFR IS NOT jeky=0581) ACCURATE CREATININE CLEARANCE IN PREDICTING GLOMERULAR FILTRATION RATE. ESTIMATED GFR IS NOT APPLICABLE FOR DIALYSIS PATIENTS. BASIC METABOLIC [id number] 10:41:00 Test Item Value Reference Range Comments SODIUM (BEAKER) (test 143 meq/L 136-145 lhsv=854) POTASSIUM (BEAKER) (test 3.3 meq/L 3.5-5.1 hyjy=937) CHLORIDE (BEAKER) (test 111 meq/L 98-107 byfi=382) CO2 (BEAKER) (test 20 meq/L 22-29 vtpj=335) BLOOD UREA NITROGEN 12 mg/dL 7-21 (BEAKER) (test tzft=272) CREATININE (BEAKER) (test 2.68 mg/dL 0.57-1.25 dsff=774) GLUCOSE RANDOM (BEAKER) 97 mg/dL 70-105 (test dvnd=585) CALCIUM (BEAKER) (test 8.6 mg/dL 8.4-10.2 sixo=754) EGFR (BEAKER) (test 22 mL/min/1.73 sq m ESTIMATED GFR IS NOT bspm=8039) ACCURATE CREATININE CLEARANCE IN PREDICTING GLOMERULAR FILTRATION RATE. ESTIMATED GFR IS NOT APPLICABLE FOR DIALYSIS PATIENTS. CBC W/PLT COUNT & AUTO [id number] 10:37:00 Test Item Value Reference Range Comments WHITE BLOOD CELL COUNT (BEAKER) (test zkcg=710) 6.0 K/ L 3.5-10.5 RED BLOOD CELL COUNT (BEAKER) (test frgw=443) 2.33 M/ L 3.93-5.22 HEMOGLOBIN (BEAKER) (test ebrx=120) 7.6 GM/DL 11.2-15.7 HEMATOCRIT (BEAKER) (test npty=585) 23.2 % 34.1-44.9 MEAN CORPUSCULAR VOLUME (BEAKER) (test kono=828) 99.6 fL 79.4-94.8 MEAN CORPUSCULAR HEMOGLOBIN (BEAKER) (test 32.6 pg 25.6-32.2 mhka=245) MEAN CORPUSCULAR HEMOGLOBIN CONC (BEAKER) (test 32.8 GM/DL 32.2-35.5 ooxk=237) RED CELL DISTRIBUTION WIDTH (BEAKER) (test 13.6 % 11.7-14.4 pdym=255) PLATELET COUNT (BEAKER) (test gpjw=565) 210 K/CU MM 150-450 MEAN PLATELET VOLUME (BEAKER) (test pdbx=113) 8.9 fL 9.4-12.3 NUCLEATED RED BLOOD CELLS (BEAKER) (test 0 /100 WBC 0-0 lnfo=577) NEUTROPHILS RELATIVE PERCENT (BEAKER) (test 69 % ypkz=699) LYMPHOCYTES RELATIVE PERCENT (BEAKER) (test 23 % veap=896) MONOCYTES RELATIVE PERCENT (BEAKER) (test 6 % khrq=231) EOSINOPHILS RELATIVE PERCENT (BEAKER) (test 1 % qqhi=926) BASOPHILS RELATIVE PERCENT (BEAKER) (test 1 % rgcy=248) NEUTROPHILS ABSOLUTE COUNT (BEAKER) (test 4.14 K/ L 1.56-6.13 ihmd=245) LYMPHOCYTES ABSOLUTE COUNT (BEAKER) (test 1.38 K/ L 1.18-3.74 lrwl=815) MONOCYTES ABSOLUTE COUNT (BEAKER) (test 0.35 K/ L 0.24-0.36 ufhq=645) EOSINOPHILS ABSOLUTE COUNT (BEAKER) (test 0.06 K/ L 0.04-0.36 tbkw=569) BASOPHILS ABSOLUTE COUNT (BEAKER) (test 0.05 K/ L 0.01-0.08 zmdo=192) IMMATURE GRANULOCYTES-RELATIVE PERCENT (BEAKER) 0 % 0-1 (test zoln=0665) [id number] 10:34:00 Test Item Value Reference Range Comments PHOSPHORUS (BEAKER) (test rqtu=479) 1.8 mg/dL 2.3-4.7 [id number] 10:34:00 Test Item Value Reference Range Comments MAGNESIUM (BEAKER) (test tkod=619) 2.4 mg/dL 1.6-2.6 HEPATIC FUNCTION [id number] 10:34:00 Test Item Value Reference Range Comments TOTAL PROTEIN (BEAKER) (test qmhx=065) 6.8 gm/dL 6.0-8.3 ALBUMIN (BEAKER) (test uhpt=8082) 4.2 g/dL 3.5-5.0 BILIRUBIN TOTAL (BEAKER) (test gjvn=089) 1.3 mg/dL 0.2-1.2 BILIRUBIN DIRECT (BEAKER) (test zjiy=642) 0.7 mg/dL 0.1-0.5 ALKALINE PHOSPHATASE (BEAKER) (test tema=305) 35 U/L 40-150 AST (SGOT) (BEAKER) (test bqzy=025) 13 U/L 5-34 ALT (SGPT) (BEAKER) (test udmf=800) 6 U/L 6-55 CREATINE KINASE (CK)2019-02-13 10:34:00 Test Item Value Reference Range Comments CREATINE KINASE TOTAL (BEAKER) (test qfps=331) 37 U/L 29-200 ANTI-NUCLEAR ANTIBODY (CARROL)2019-02-13 10:25:00 Test Item Value Reference Range Comments ANTI-NUCLEAR ANTIBODY (CARROL) (BEAKER) (test Positive Negative fqou=780) Test performed by IFA method.CARROL TITER AND [id number] 10:25:00 Test Item Value Reference Range Comments CARROL TITER (BEAKER) (test rlgx=8424) :160 CARROL PATTERN (BEAKER) (test wsaj=7418) Homogeneous CALCIUM, [id number] 10:17:00 Test Item Value Reference Range Comments CALCIUM IONIZED (BEAKER) (test vqzb=955) 1.03 mmol/L 1.12-1.27 PH, BLOOD (BEAKER) (test cvfl=5404) 7.51 BODY FLUID CULTURE + GRAM [id number] 12:36:00 Test Item Value Reference Range Comments CULTURE (BEAKER) (test qoii=8732) No growth GRAM STAIN RESULT (BEAKER) (test <1+ White blood cells seen mqus=2245) GRAM STAIN RESULT (BEAKER) (test No organisms seen gizf=77271) [id number] 09:07:00 Test Item Value Reference Range Comments PHOSPHORUS (BEAKER) (test cyym=789) 2.2 mg/dL 2.3-4.7 [id number] 09:07:00 Test Item Value Reference Range Comments MAGNESIUM (BEAKER) (test fkqr=559) 2.4 mg/dL 1.6-2.6 COMPREHENSIVE METABOLIC [id number] 09:07:00 Test Item Value Reference Range Comments TOTAL PROTEIN (BEAKER) 6.2 gm/dL 6.0-8.3 (test yyvl=226) ALBUMIN (BEAKER) (test 3.7 g/dL 3.5-5.0 csgp=5615) ALKALINE PHOSPHATASE 27 U/L 40-150 (BEAKER) (test mnre=522) BILIRUBIN TOTAL (BEAKER) 0.8 mg/dL 0.2-1.2 (test tqhb=494) SODIUM (BEAKER) (test 142 meq/L 136-145 znep=021) POTASSIUM (BEAKER) (test 3.4 meq/L 3.5-5.1 zshk=037) CHLORIDE (BEAKER) (test 111 meq/L 98-107 uyri=742) CO2 (BEAKER) (test 20 meq/L 22-29 wyrv=091) BLOOD UREA NITROGEN 10 mg/dL 7-21 (BEAKER) (test cznt=690) CREATININE (BEAKER) (test 2.89 mg/dL 0.57-1.25 ekwu=443) GLUCOSE RANDOM (BEAKER) 98 mg/dL 70-105 (test ywbq=789) CALCIUM (BEAKER) (test 8.5 mg/dL 8.4-10.2 bojk=080) AST (SGOT) (BEAKER) (test 14 U/L 5-34 adwz=938) ALT (SGPT) (BEAKER) (test 6 U/L 6-55 wuqh=552) EGFR (BEAKER) (test 20 mL/min/1.73 sq m ESTIMATED GFR IS NOT kbzu=4448) ACCURATE CREATININE CLEARANCE IN PREDICTING GLOMERULAR FILTRATION RATE. ESTIMATED GFR IS NOT APPLICABLE FOR DIALYSIS PATIENTS. CALCIUM, [id number] 07:28:00 Test Item Value Reference Range Comments CALCIUM IONIZED (BEAKER) (test znrq=142) 1.02 mmol/L 1.12-1.27 PH, BLOOD (BEAKER) (test utwk=1732) 7.46 CBC W/PLT COUNT & AUTO [id number] 06:55:00 Test Item Value Reference Range Comments WHITE BLOOD CELL COUNT (BEAKER) (test zoxu=386) 5.8 K/ L 3.5-10.5 RED BLOOD CELL COUNT (BEAKER) (test qcsu=161) 2.33 M/ L 3.93-5.22 HEMOGLOBIN (BEAKER) (test qnuh=293) 7.5 GM/DL 11.2-15.7 HEMATOCRIT (BEAKER) (test gdyd=105) 23.5 % 34.1-44.9 MEAN CORPUSCULAR VOLUME (BEAKER) (test basi=427) 100.9 fL 79.4-94.8 MEAN CORPUSCULAR HEMOGLOBIN (BEAKER) (test 32.2 pg 25.6-32.2 ayfw=233) MEAN CORPUSCULAR HEMOGLOBIN CONC (BEAKER) (test 31.9 GM/DL 32.2-35.5 cqpl=579) RED CELL DISTRIBUTION WIDTH (BEAKER) (test 13.7 % 11.7-14.4 bohv=081) PLATELET COUNT (BEAKER) (test mtrl=076) 183 K/CU MM 150-450 MEAN PLATELET VOLUME (BEAKER) (test lfae=107) 8.3 fL 9.4-12.3 NUCLEATED RED BLOOD CELLS (BEAKER) (test 0 /100 WBC 0-0 gipt=383) NEUTROPHILS RELATIVE PERCENT (BEAKER) (test 71 % munc=325) LYMPHOCYTES RELATIVE PERCENT (BEAKER) (test 21 % gosn=668) MONOCYTES RELATIVE PERCENT (BEAKER) (test 6 % znbc=442) EOSINOPHILS RELATIVE PERCENT (BEAKER) (test 2 % etep=341) BASOPHILS RELATIVE PERCENT (BEAKER) (test 1 % ngrx=172) NEUTROPHILS ABSOLUTE COUNT (BEAKER) (test 4.13 K/ L 1.56-6.13 qpjb=169) LYMPHOCYTES ABSOLUTE COUNT (BEAKER) (test 1.20 K/ L 1.18-3.74 spqp=904) MONOCYTES ABSOLUTE COUNT (BEAKER) (test 0.34 K/ L 0.24-0.36 qpye=424) EOSINOPHILS ABSOLUTE COUNT (BEAKER) (test 0.09 K/ L 0.04-0.36 vpui=119) BASOPHILS ABSOLUTE COUNT (BEAKER) (test 0.05 K/ L 0.01-0.08 hurl=470) IMMATURE GRANULOCYTES-RELATIVE PERCENT (BEAKER) 0 % 0-1 (test epna=9698) B-TYPE NATRIURETIC FACTOR (BNP)2019-02-11 17:28:00 Test Item Value Reference Range Comments B-TYPE NATRIURETIC PEPTIDE (BEAKER) (test vlnx=042) 61 pg/mL 0-100 CBC W/PLT COUNT & AUTO [id number] 17:10:00 Test Item Value Reference Range Comments WHITE BLOOD CELL COUNT (BEAKER) (test iced=506) 5.8 K/ L 3.5-10.5 RED BLOOD CELL COUNT (BEAKER) (test epkg=710) 2.27 M/ L 3.93-5.22 HEMOGLOBIN (BEAKER) (test tlfs=889) 7.3 GM/DL 11.2-15.7 HEMATOCRIT (BEAKER) (test obcq=453) 23.4 % 34.1-44.9 MEAN CORPUSCULAR VOLUME (BEAKER) (test fzuf=077) 103.1 fL 79.4-94.8 MEAN CORPUSCULAR HEMOGLOBIN (BEAKER) (test 32.2 pg 25.6-32.2 njma=107) MEAN CORPUSCULAR HEMOGLOBIN CONC (BEAKER) (test 31.2 GM/DL 32.2-35.5 ywim=384) RED CELL DISTRIBUTION WIDTH (BEAKER) (test 14.0 % 11.7-14.4 fkjw=839) PLATELET COUNT (BEAKER) (test fzbi=147) 204 K/CU MM 150-450 MEAN PLATELET VOLUME (BEAKER) (test fivn=205) 9.8 fL 9.4-12.3 NUCLEATED RED BLOOD CELLS (BEAKER) (test 0 /100 WBC 0-0 xeah=949) NEUTROPHILS RELATIVE PERCENT (BEAKER) (test 69 % hkhi=486) LYMPHOCYTES RELATIVE PERCENT (BEAKER) (test 21 % juxv=767) MONOCYTES RELATIVE PERCENT (BEAKER) (test 6 % tvzf=381) EOSINOPHILS RELATIVE PERCENT (BEAKER) (test 2 % zuvd=457) BASOPHILS RELATIVE PERCENT (BEAKER) (test 1 % tobh=696) NEUTROPHILS ABSOLUTE COUNT (BEAKER) (test 4.04 K/ L 1.56-6.13 yybb=612) LYMPHOCYTES ABSOLUTE COUNT (BEAKER) (test 1.24 K/ L 1.18-3.74 qoze=754) MONOCYTES ABSOLUTE COUNT (BEAKER) (test 0.36 K/ L 0.24-0.36 ganm=205) EOSINOPHILS ABSOLUTE COUNT (BEAKER) (test 0.11 K/ L 0.04-0.36 xfwn=116) BASOPHILS ABSOLUTE COUNT (BEAKER) (test 0.05 K/ L 0.01-0.08 ygja=713) IMMATURE GRANULOCYTES-RELATIVE PERCENT (BEAKER) 1 % 0-1 (test vcbd=1814) CT, [id number] 16:19:00FINAL REPORT TECHNIQUE: CT of the abdomen and pelvis WITHOUT intravenous contrast and WITHOUT oral contrast. Dose modulation, iterative reconstruction, and/or weight-based adjustment of the mA/kV was utilized to reduce the radiation dose to as low as reasonably achievable. INDICATION: 63-year-old woman with loculated hepatic fluid collection. COMPARISON: Outside abdomen and pelvis CT 02/08/2019. FINDINGS : ABSENCE OF INTRAVENOUS CONTRAST DECREASES SENSITIVITY FOR DETECTION OF FOCAL LESIONS AND VASCULAR PATHOLOGY. LOWER THORAX: Trace bilateral pleural effusions. Unchanged hyperdensity/calcification along the pleura in the left lung base. HEPATOBILIARY: No focal hepatic lesions.Gallbladder is unremarkable. No biliary ductal dilatation.SPLEEN: No splenomegaly.PANCREAS: No focalmasses or ductal dilatation. ADRENALS: No adrenal nodules.KIDNEYS/URETERS: No hydronephrosis or stones. 1.7 x 1.3 cm right renal cyst.PELVIC ORGANS/BLADDER: Prior hysterectomy. No adnexal mass. Bladderis unremarkable. PERITONEUM/ RETROPERITONEUM: Small-moderate loculated ascites. No free air.LYMPH NODES: No lymphadenopathy.VESSELS: Unremarkable. GI TRACT: Mildly distended loops of small bowel in the right abdomen. Evaluation for transition point is limited without intravenous or oral contrast. Colonic diverticula. Normal appendix. Small hiatal hernia. BONES AND SOFT TISSUES: Scattered sclerotic lesions in the visualized thoracolumbar lumbar spine and bony pelvis measure up to 1.1 cm. Unchanged mild presacral soft tissue stranding. IMPRESSION:Small-moderate loculated ascites. Mildly distended loops of small bowel in the right abdomen are nonspecific, but may be seen in the setting of small bowel obstruction. Evaluation for a transition point is limited by lack of intravenous or oral contrast. Scattered sclerotic lesions in the visualized bones, suspicious for metastases. Signed: Jose Mayorga MDReport Verified Date/Time: 02/11/2019 16: 19:52 Reading Location: [facility] B1 C013Y CT Body Reading Room [facility] METABOLIC [id number] 05:02:00 Test Item Value Reference Range Comments SODIUM (BEAKER) (test 142 meq/L 136-145 evvi=274) POTASSIUM (BEAKER) (test 3.7 meq/L 3.5-5.1 pvvy=066) CHLORIDE (BEAKER) (test 113 meq/L 98-107 bjxc=690) CO2 (BEAKER) (test 18 meq/L 22-29 mptc=980) BLOOD UREA NITROGEN 13 mg/dL 7-21 (BEAKER) (test kwwr=036) CREATININE (BEAKER) (test 2.15 mg/dL 0.57-1.25 yjyo=170) GLUCOSE RANDOM (BEAKER) 115 mg/dL 70-105 (test hhxb=284) CALCIUM (BEAKER) (test 8.1 mg/dL 8.4-10.2 nppu=574) EGFR (BEAKER) (test 28 mL/min/1.73 sq m ESTIMATED GFR IS NOT saan=8602) ACCURATE CREATININE CLEARANCE IN PREDICTING GLOMERULAR FILTRATION RATE. ESTIMATED GFR IS NOT APPLICABLE FOR DIALYSIS PATIENTS. HEPATIC FUNCTION [id number] 04:31:00 Test Item Value Reference Range Comments TOTAL PROTEIN (BEAKER) (test bgmq=084) 5.9 gm/dL 6.0-8.3 ALBUMIN (BEAKER) (test lnoc=8148) 3.0 g/dL 3.5-5.0 BILIRUBIN TOTAL (BEAKER) (test tpxv=784) 0.7 mg/dL 0.2-1.2 BILIRUBIN DIRECT (BEAKER) (test iudm=853) 0.4 mg/dL 0.1-0.5 ALKALINE PHOSPHATASE (BEAKER) (test jeaj=034) 34 U/L 40-150 AST (SGOT) (BEAKER) (test yvcb=485) 17 U/L 5-34 ALT (SGPT) (BEAKER) (test lfgn=435) 9 U/L 6-55 [id number] 04:30:00 Test Item Value Reference Range Comments PHOSPHORUS (BEAKER) (test brhb=519) 2.5 mg/dL 2.3-4.7 [id number] 04:30:00 Test Item Value Reference Range Comments MAGNESIUM (BEAKER) (test ppsw=859) 1.5 mg/dL 1.6-2.6 CBC W/PLT COUNT & AUTO [id number] 04:04:00 Test Item Value Reference Range Comments WHITE BLOOD CELL COUNT (BEAKER) (test qnao=593) 6.0 K/ L 3.5-10.5 RED BLOOD CELL COUNT (BEAKER) (test uypm=046) 2.64 M/ L 3.93-5.22 HEMOGLOBIN (BEAKER) (test tjmz=458) 8.3 GM/DL 11.2-15.7 HEMATOCRIT (BEAKER) (test fqla=263) 27.7 % 34.1-44.9 MEAN CORPUSCULAR VOLUME (BEAKER) (test yvks=991) 104.9 fL 79.4-94.8 MEAN CORPUSCULAR HEMOGLOBIN (BEAKER) (test 31.4 pg 25.6-32.2 brjj=106) MEAN CORPUSCULAR HEMOGLOBIN CONC (BEAKER) (test 30.0 GM/DL 32.2-35.5 xsjx=502) RED CELL DISTRIBUTION WIDTH (BEAKER) (test 14.1 % 11.7-14.4 cwcj=448) PLATELET COUNT (BEAKER) (test redb=843) 198 K/CU MM 150-450 MEAN PLATELET VOLUME (BEAKER) (test eqlk=457) 8.4 fL 9.4-12.3 NUCLEATED RED BLOOD CELLS (BEAKER) (test 0 /100 WBC 0-0 klbj=133) NEUTROPHILS RELATIVE PERCENT (BEAKER) (test 66 % jqhz=902) LYMPHOCYTES RELATIVE PERCENT (BEAKER) (test 25 % hnsw=300) MONOCYTES RELATIVE PERCENT (BEAKER) (test 6 % ruol=075) EOSINOPHILS RELATIVE PERCENT (BEAKER) (test 2 % rshx=106) BASOPHILS RELATIVE PERCENT (BEAKER) (test 1 % rdmh=880) NEUTROPHILS ABSOLUTE COUNT (BEAKER) (test 3.90 K/ L 1.56-6.13 yxyo=377) LYMPHOCYTES ABSOLUTE COUNT (BEAKER) (test 1.50 K/ L 1.18-3.74 dzqo=328) MONOCYTES ABSOLUTE COUNT (BEAKER) (test 0.37 K/ L 0.24-0.36 wuqh=601) EOSINOPHILS ABSOLUTE COUNT (BEAKER) (test 0.11 K/ L 0.04-0.36 gysk=556) BASOPHILS ABSOLUTE COUNT (BEAKER) (test 0.05 K/ L 0.01-0.08 mwrr=434) IMMATURE GRANULOCYTES-RELATIVE PERCENT (BEAKER) 1 % 0-1 (test hxun=7208) URINALYSIS W/ REFLEX URINE [id number] 21:08:00 Test Item Value Reference Range Comments COLOR (BEAKER) (test zgke=059) Yellow CLARITY (BEAKER) (test yurn=308) Hazy SPECIFIC GRAVITY UA (BEAKER) (test vblp=952) 1.015 1.001-1.035 PH UA (BEAKER) (test dhza=568) 5.5 5.0-8.0 PROTEIN UA (BEAKER) (test oyde=109) 20 mg/dL Negative GLUCOSE UA (BEAKER) (test nrkf=809) Negative Negative KETONES UA (BEAKER) (test rtrn=678) Trace Negative BILIRUBIN UA (BEAKER) (test aooe=190) Negative Negative BLOOD UA (BEAKER) (test cqji=023) Negative Negative NITRITE UA (BEAKER) (test ydfh=556) Negative Negative LEUKOCYTE ESTERASE UA (BEAKER) (test jztl=061) Large Negative UROBILINOGEN UA (BEAKER) (test gozc=570) 0.2 mg/dL 0.2-1.0 RBC UA (BEAKER) (test jzgo=247) 1 /HPF WBC UA (BEAKER) (test ushi=957) 10 /HPF SQUAMOUS EPITHELIAL (BEAKER) (test qbbk=626) 3 /HPF HYALINE CASTS (BEAKER) (test cjgw=895) 2 /LPF CRYSTALS, URINE (BEAKER) (test wskf=9893) Rare YEAST (BEAKER) (test pjxb=9364) Occasional SOURCE(BEAKER) (test zakq=7415) HEPATITIS B SURFACE [id number] 20:13:00 Test Item Value Reference Range Comments HEPATITIS B SURFACE ANTIBODY (BEAKER) (test < mIU/mL <8.0 zhsk=237) HEPATITIS A ANTIBODY, [id number] 20:13:00 Test Item Value Reference Range Comments HEPATITIS A IGG ANTIBODY (BEAKER) (test mual=7126) Reactive Nonreactive HEPATITIS B SURFACE [id number] 20:11:00 Test Item Value Reference Range Comments HEPATITIS B SURFACE ANTIGEN (2) (BEAKER) (test Nonreactive Nonreactive lfiy=7729) HEPATITIS C [id number] 20:11:00 Test Item Value Reference Range Comments HEPATITIS C ANTIBODY (BEAKER) (test pwik=445) Nonreactive Nonreactive U/S, ABDOMINAL, WITH [id number] 20:08:00Reason for exam:->evaluation for liver disease, other abdominal pathologyShould this be performedat the bedside?->YesFINAL REPORT INDICATION:Cirrhosis. TECHNIQUE:Ultrasound of the Abdomen and Doppler evaluation. Sonographic evaluation of the abdomen was performed, including color flow and spectral Doppler analysis of the abdominal vasculature. Exam was technically difficult because of bowel gas. COMPARISON:February 02, 2019 FINDINGS:Hepatic Vasculature: Main portal vein shows hepatopedal flow with a velocity of 33 cm/s.Right portal vein demonstrates hepatopedal flow.Left portal vein not visualized.Proper hepatic artery resistive index is 0.75.Right hepatic artery and left hepatic artery not visualized.Right, middle, and left hepatic veins are patent.Hepatic venous confluence and visualized part of the IVC patent.Hepatopedal flow demonstrated in the splenic vein at the hilum.Splenic vein at the level of the pancreas not visualized. Other:Pancreas not visualized because of bowel gas.Liver echotexture is coarse, in keeping with cirrhosis.No liver mass identified.Mild ascites.Gallbladder unremarkable.Common bile duct appears to measure 0.6 cm.Right kidney measures 10.0 x 4.5 x 4.0 cm.Left kidney measures 11.8 x 5.7 x 6.0 cm.No hydronephrosis or renal mass demonstrated.Spleen measures 9 x 3 cm.Abdominal aorta not visualized because of bowel gas. IMPRESSION:Technically difficult exam because of bowel gas.Coarse liver echotexture, in keeping with cirrhosis.Mild ascites. Signed: Justo Goss MDReport Verified Date/Time: 02/09/2019 20:08:48 Reading Location: [facility] C013W Consult Reading Room IMMUNOGLOBULIN G (IGG)2019-02-09 19:45:00 Test Item Value Reference Range Comments IMMUNOGLOBULIN G (IGG) (BEAKER) (test cvri=986) 926 mg/dL 540-1,822 [id number] 19:13:00 Test Item Value Reference Range Comments FERRITIN (BEAKER) (test efmp=062) 1896 ng/mL 5-275 BODY FLUID CELL COUNT WITH [id number] 19:01:00 Test Item Value Reference Range Comments APPEARANCE FLUID (BEAKER) (test vfyj=908) Slightly Hazy Clear COLOR FLUID (BEAKER) (test emcw=262) Yellow Colorless, Straw RBC FLUID (BEAKER) (test eqjr=720) 200 /cu mm <=1 ADJUSTED WBC FLUID (BEAKER) (test graq=3486) 88 /cu mm <=5 LINING CELLS (BEAKER) (test jjsl=7235) 2 /cu mm <=1 NEUTROPHILS FLUID (BEAKER) (test uspt=9068) 1 % LYMPHS FLUID (BEAKER) (test jftn=475) 57 % MONO/MACROPHAGE FLUID (BEAKER) (test 40 % utpj=676) EOSINOPHILS FLUID (BEAKER) (test gbvo=496) 2 % BASO FLUID (BEAKER) (test cajj=907) 0 % CONTAINER BODY FLUID (BEAKER) (test EDTA Tube ecic=4131) IRON, TIBC, % SAT. (WITHOUT FERRITIN)2019-02-09 18:53:00 Test Item Value Reference Range Comments IRON (BEAKER) (test rllq=118) 23.0 ug/dL 40.0-160.0 TOTAL IRON BINDING CAPACITY (BEAKER) (test 94 ug/dL 250-450 jqnz=706) IRON % SATURATION (2) (BEAKER) (test xwup=2553) 24 % 20-55 GAMMA GLUTAMYL TRANSFERASE (GGT)2019-02-09 18:51:00 Test Item Value Reference Range Comments GAMMA GLUTAMYL TRANSFERASE 21 U/L 9-64 Specimen slightly hemolyzed (BEAKER) (test wtkc=008) ALBUMIN, BODY [id number] 18:07:00 Test Item Value Reference Range Comments ALBUMIN FLUID (BEAKER) (test edyy=027) 2.3 gm/dL Reference Range: No Normals Assay performance has not been validated for this type of specimen.LACTATE DEHYDROGENASE (LDH), BODY [id number] 18:07:00 Test Item Value Reference Range Comments LACTATE DEHYDROGENASE FLUID (BEAKER) (test zild=586) 288 U/L Absence of reference range indicates that normals have not been defined.Assay performance has not been validated for this type of specimen.RAD, CHEST, 1 VIEW , NON [id number] 17:55:00Reason for exam:->dyspneaShould this be performed at the bedside?->YesFINAL REPORT INDICATION : dyspnea COMPARISON:None. TECHNIQUE: Chest radiograph, single view, portable technique. FINDINGS / IMPRESSION: There is a small left pleural effusion. Lungs are clear and heart shadow is normal in size. Calcified plaque in the aortic arch and right axillary and right low neck surgical clips noted. Signed: Justo Goss MDReport Verified Date/Time: 02/09/2019 17:55:29 Reading Location: [facility] C013W Consult Reading Room SODIUM, RANDOM [id number] 16:13:00 Test Item Value Reference Range Comments SODIUM URINE (BEAKER) (test tpzu=259) < meq/L Reference Range: No NormalsCREATININE, RANDOM [id number] 16:11:00 Test Item Value Reference Range Comments CREATININE URINE (BEAKER) (test coew=611) 177.2 mg/dL Reference Range: No NormalsUREA NITROGEN, RANDOM [id number] 16:11:00 Test Item Value Reference Range Comments UREA NITROGEN URINE (BEAKER) (test vcon=288) 557 mg/dL Reference Range: No [id number] 15:34:00 Test Item Value Reference Range Comments PROCALCITONIN (BEAKER) (test ozsf=6977) 0.12 ng/mL <0.05 SEPSIS RISK (ng/mL)Low: 0.05-0.50Intermediate: 0.51-2.00High: & gt;=2.01B-TYPE NATRIURETIC FACTOR (BNP)2019-02-09 15:28:00 Test Item Value Reference Range Comments B-TYPE NATRIURETIC PEPTIDE (BEAKER) (test piuh=703) 17 pg/mL 0-100 TROPONIN [id number] 15:27:00 Test Item Value Reference Range Comments TROPONIN I (BEAKER) (test qigf=021) < ng/mL 0.00-0.03 Troponin I (TnI) levels must be interpreted in the context of the presenting symptoms and the clinical findings. Elevated TnI levels indicate myocardial damage, but are not specific for ischemic heart disease. Elevated TnI levels are seen in patients with other cardiac conditions (including myocarditis and congestive heart failure), and slight TnI elevations occur in patients with other conditions, including sepsis, renal failure, acidosis, acute neurological disease, and persistent tachyarrhythmia.HEPATIC FUNCTION [id number] 15:21: 00 Test Item Value Reference Range Comments TOTAL PROTEIN (BEAKER) (test zcxt=459) 6.3 gm/dL 6.0-8.3 ALBUMIN (BEAKER) (test huvd=8314) 2.9 g/dL 3.5-5.0 BILIRUBIN TOTAL (BEAKER) (test mmag=187) 0.9 mg/dL 0.2-1.2 BILIRUBIN DIRECT (BEAKER) (test zapz=397) 0.5 mg/dL 0.1-0.5 ALKALINE PHOSPHATASE (BEAKER) (test foze=119) 40 U/L 40-150 AST (SGOT) (BEAKER) (test xnre=850) 19 U/L 5-34 ALT (SGPT) (BEAKER) (test umvl=260) 12 U/L 6-55 BASIC METABOLIC [id number] 15:21:00 Test Item Value Reference Range Comments SODIUM (BEAKER) (test 143 meq/L 136-145 rbge=206) POTASSIUM (BEAKER) (test 3.3 meq/L 3.5-5.1 vexk=951) CHLORIDE (BEAKER) (test 112 meq/L 98-107 fsfs=005) CO2 (BEAKER) (test 17 meq/L 22-29 uehh=000) BLOOD UREA NITROGEN 16 mg/dL 7-21 (BEAKER) (test bdiz=614) CREATININE (BEAKER) (test 1.92 mg/dL 0.57-1.25 afvy=797) GLUCOSE RANDOM (BEAKER) 111 mg/dL 70-105 (test awrh=573) CALCIUM (BEAKER) (test 8.6 mg/dL 8.4-10.2 oiij=180) EGFR (BEAKER) (test 32 mL/min/1.73 sq m ESTIMATED GFR IS NOT jnxl=2332) ACCURATE CREATININE CLEARANCE IN PREDICTING GLOMERULAR FILTRATION RATE. ESTIMATED GFR IS NOT APPLICABLE FOR DIALYSIS PATIENTS. PROTHROMBIN TIME/[id number] 15:17:00 Test Item Value Reference Range Comments PROTIME (BEAKER) (test rcfo=131) 16.0 seconds 11.7-14.7 INR (BEAKER) (test xbvh=484) 1.3 <=5.9 RECOMMENDED COUMADIN/WARFARIN INR THERAPY RANGESSTANDARD DOSE: 2.0 - 3.0 Includes: PROPHYLAXIS forvenous thrombosis, systemic embolization; TREATMENT for venous thrombosis and/or pulmonary embolus.HIGH RISK: Target INR is 2.5-3.5 for patients with mechanical heart valves.[id number] 15:17:00 Test Item Value Reference Range Comments FIBRINOGEN LEVEL (BEAKER) (test xfsw=416) 718 mg/dl 225-434 CBC W/PLT COUNT & AUTO [id number] 15:15:00 Test Item Value Reference Range Comments WHITE BLOOD CELL COUNT (BEAKER) (test vniy=690) 7.0 K/ L 3.5-10.5 RED BLOOD CELL COUNT (BEAKER) (test pbkz=492) 2.80 M/ L 3.93-5.22 HEMOGLOBIN (BEAKER) (test ckgk=864) 9.1 GM/DL 11.2-15.7 HEMATOCRIT (BEAKER) (test dyku=446) 28.5 % 34.1-44.9 MEAN CORPUSCULAR VOLUME (BEAKER) (test reil=406) 101.8 fL 79.4-94.8 MEAN CORPUSCULAR HEMOGLOBIN (BEAKER) (test 32.5 pg 25.6-32.2 avlg=656) MEAN CORPUSCULAR HEMOGLOBIN CONC (BEAKER) (test 31.9 GM/DL 32.2-35.5 ckxs=567) RED CELL DISTRIBUTION WIDTH (BEAKER) (test 13.8 % 11.7-14.4 xjcw=313) PLATELET COUNT (BEAKER) (test liit=749) 212 K/CU MM 150-450 MEAN PLATELET VOLUME (BEAKER) (test efdn=093) 9.2 fL 9.4-12.3 NUCLEATED RED BLOOD CELLS (BEAKER) (test 0 /100 WBC 0-0 dmou=033) NEUTROPHILS RELATIVE PERCENT (BEAKER) (test 70 % nmvv=565) LYMPHOCYTES RELATIVE PERCENT (BEAKER) (test 22 % vubd=779) MONOCYTES RELATIVE PERCENT (BEAKER) (test 5 % qwez=930) EOSINOPHILS RELATIVE PERCENT (BEAKER) (test 1 % jlbp=807) BASOPHILS RELATIVE PERCENT (BEAKER) (test 1 % kbbi=413) NEUTROPHILS ABSOLUTE COUNT (BEAKER) (test 4.92 K/ L 1.56-6.13 yyap=927) LYMPHOCYTES ABSOLUTE COUNT (BEAKER) (test 1.58 K/ L 1.18-3.74 kabt=459) MONOCYTES ABSOLUTE COUNT (BEAKER) (test 0.35 K/ L 0.24-0.36 rspx=064) EOSINOPHILS ABSOLUTE COUNT (BEAKER) (test 0.09 K/ L 0.04-0.36 gctn=381) BASOPHILS ABSOLUTE COUNT (BEAKER) (test 0.07 K/ L 0.01-0.08 azbr=424) IMMATURE GRANULOCYTES-RELATIVE PERCENT (BEAKER) 0 % 0-1 (test mksk=7583) LACTIC ACID, [id number] 15:15:00 Test Item Value Reference Range Comments LACTATE BLOOD VENOUS (2) 1.3 mmol/L 0.5-2.2 Specimen moderately hemolyzed (BEAKER) (test qjtv=2737) [id number] 15:14:00 Test Item Value Reference Range Comments AMMONIA (BEAKER) (test 17 mol/L 18-72 Specimen moderately hemolyzed fbgz=297) [id number] 14:17:00Medical Cytology Report Case: [id number] Authorizing Provider: Mary Elizondo MD Collected: 02/01/2019 1654 Ordering Location: [address] Received: 02/02/2019 0857 Service Pathologist: Cherri Covington MD Specimen: Peritoneal Fluid REASON FOR ADDENDUM:TO REPORT BIOMARKERS RESULTS.COMMENT: WITH TIRADO- CYTOKERATIN IMMUNOSTAIN, THE NUMBER OF EPITHELIAL CELLS CAN BE ASSESSED. - BIOMARKERS PERFORMED ON SECTION # A-2 - ESTROGEN RECEPTOR: POSITIVE - PROPORTION SCORE: 4/5 - INTENSITY SCORE: 2/3 - SUMMARY: 40% POSITIVE, INTERMEDIATE INTENSITY - PROGESTERONE RECEPTOR: POSITIVE - PROPORTION SCORE: 2/5 - INTENSITY SCORE: 1/3 - SUMMARY: 5% POSITIVE, WEAK INTENSITY - HER 2 OVER-EXPRESSION: NEGATIVE (SCORE: 0)PB: [id number] X3, 36754 CAP REGULATION: FIXATION TIME FOR BIOMARKERS ASSESSMENTCollection date and time: 1654Placed in fixative dateand time: 02/02/2018 0857Removed from formalin date and time: 02/03/2018 0400NOTE: THE PROLONGED TIME FROM COLLECTION TO FIXATION MAY PRODUCE DECREASED BIOMARKERS SIGNAL.Methodology: Fixation type and length: tissue was fixed in 10% neutral buffered formalin for a minimal of at least 6 hours and not longer than 72 hours. Antibody and Assay Methodology : Antibodies for ER, PgR, Her2 and Ki67 were assessed using clones SP1 ([place] ), 1294 ([facility]), 4B5 (FDA Approved [place] [employer]) and 30-9 ([place]) respectively. Control Slides Examined: In-house known ER, NE, HER2 and Ki67 positive controls were evaluated along with test tissue. These control slides run alongside of the patients sample show appropriate staining. Internal controls when available are evaluated.Interpretive Criteria: The staining results according to the ASCO/CAP guidelines for HER2 (Jaylen AC et al. Arch Pathol Lab Med December 29) and ER/NE (Yvette HERNÁNDEZ et al. Arch Pathol Lab Med 2010; 134:e48-e72) by ASCO/CAP guidelines.ER and NE "positive" requires greater or equal to 1% tumor cells with nuclear staining.HER2 "positive" (3+) requires circumferential membrane staining that is complete and intense in more than 10% of tumor cells. HER2 "equivocal" (2+) requires weak to moderate complete membrane staining observed in more than 10% of tumor cells .HER2 "negative" (1+) requires incomplete membrane staining that is faint/barely perceptible and in more than 10%of tumor cells. HER2 "negative (0)" requires no staining or membrane staining that is incomplete and is faint/barely perceptible and in less than or equal to 10% of tumor cells. The ER/NE Proportion Score indicates the proportion of positive staining tumor cells (0= none; 1 < 1/100; 2=1/100-1/10; 3=1/10-1/3; 4=1/3-2/3; 5> 2/3). The intensity score indicates the average intensity of positive staining tumor cells (0=none; 1=weak; 2=intermediate; 3=strong). For the purpose of defining "positive", the proportion and intensity scores were added to obtain a total score (range 0-8). ER and PgR "positive" (total score >2) were defined in studies correlating IHC total scores with clinical outcome in patients receiving hormonal therapy (see: Modern Pathol 11:155, 1998; J Clin Oncol 17: 1474, 1998; Int J Cancer 89:111, 2000; Breast Cancer Res Treat 76:S36[abst#30], 2002). Immunohistochemistry technical testing was performed at [facility], Pathology Laboratory where it was developed [...] qualified to perform high complexity clinical laboratory testing.Addendum electronically signed by Liliam Camacho MD on 02/09/2019 at 2:17 PMPERITONEAL FLUID (CYTOSPINS AND CELL BLOCK): - METASTATIC ADENOCARCINOMA, COMPATIBLE WITH BREASTPRIMARY (SEE COMMENT) Signing Pathologist Direct Phone Line: [phone] signed by Cherri Covington MD on 02/07/2019 at 4:06 PMThe peritoneal fluid shows few atypical cells,scattered mostly singly. These cells are positive for MOC-31, Irwin -EP4 and MAYUR-3. GCDFP is negative.Calretinin and WT-1 highlight mesothelial cells. The immunoprofile is compatible with patient's history of breast primaryAn addendm report will follow with the results of the biomarkers.37137, 87399; 18513; 87816 x 5Ascites, history of of breast cancer (dx 2010 s/p chemoXRT, lumpectomy)PERITONEAL MTIFH2942 mls yellow; 4 cytospins, cell blockCollected: [id number]: [id number] interpretation of this case included the use of immunohistochemistry or special stains. Calretinin; WT- 1; MAYUR-3; GCDFP; MOC-31 AND IRWIN-RN2Epcjmfdkiejvbgchplvx technical testing was performed at [facility], Pathology Laboratory where it was [...] qualified to perform high complexity clinical laboratory testing.[facility], Department of Pathology, [address] [place] [id number], Tel [facility], [facility] of [facility], [address] [place] [address], [facility], [facility] of [facility]ology, [address] [place] [address], Tel STOOL CULTURE + SHIGA [id number] 00:23:00 Test Item Value Reference Range Comments CULTURE (BEAKER) (test No Salmonella, Shigella or hrue=2851) Campylobacter isolated SHIGA TOXIN [id number] 10:46:00 Test Item Value Reference Range Comments SHIGA TOXIN 1 (BEAKER) (test thmd=8654) Not detected Not detected SHIGA TOXIN 2 (BEAKER) (test ebhe=0043) Not detected Not detected Resubmit new specimen if clinically indicated.BODY FLUID CULTURE + GRAM [id number] 08:40:00 Test Item Value Reference Range Comments CULTURE (BEAKER) (test fuwa=8948) No growth GRAM STAIN RESULT (BEAKER) (test 1+ WBCs bmpg=4924) GRAM STAIN RESULT (BEAKER) (test No organisms seen bzeq=40596) STOOL PATH [id number] 11:26:00 Test Item Value Reference Range Comments PATHOGEN EXAM CHARGED (BEAKER) (test vcpk=2388) Done C. DIFFICILE GDH [id number] 17:05:00 Test Item Value Reference Range Comments CDT TOXIN (test Negative Negative tmzf=[id number]) CDT GDH ANTIGEN (test Negative Negative No indication of Clostridium jlpk=[id number]) difficile infection and no colonization. Discontinue enteric isolation and therapy. Testing performed by [employer] Rapid Cassette Assay. For GDH, published sensitivity of the assay is 98.7% compared to cytotoxicity testing. For Toxin AB, published sensitivity is 87.8% and specificity 99.4% compared to cytotoxicity testing.Verification of kit performance was done by the [facility] Microbiology Lab prior to clinical use.[id number] 13:10:00 Test Item Value Reference Range Comments MAGNESIUM (BEAKER) (test nyie=521) 1.9 mg/dL 1.6-2.6 BASIC METABOLIC [id number] 13:10:00 Test Item Value Reference Range Comments SODIUM (BEAKER) (test 139 meq/L 136-145 lcej=351) POTASSIUM (BEAKER) (test 4.0 meq/L 3.5-5.1 bedz=389) CHLORIDE (BEAKER) (test 110 meq/L 98-107 zwhr=732) CO2 (BEAKER) (test 21 meq/L 22-29 uggf=548) BLOOD UREA NITROGEN 21 mg/dL 7-21 (BEAKER) (test mnbk=932) CREATININE (BEAKER) (test 1.34 mg/dL 0.57-1.25 svbv=980) GLUCOSE RANDOM (BEAKER) 112 mg/dL 70-105 (test bwjw=436) CALCIUM (BEAKER) (test 8.5 mg/dL 8.4-10.2 wgsp=132) EGFR (BEAKER) (test 49 mL/min/1.73 sq m ESTIMATED GFR IS NOT lhmz=9213) ACCURATE CREATININE CLEARANCE IN PREDICTING GLOMERULAR FILTRATION RATE. ESTIMATED GFR IS NOT APPLICABLE FOR DIALYSIS PATIENTS. HEPATIC FUNCTION [id number] 13:10:00 Test Item Value Reference Range Comments TOTAL PROTEIN (BEAKER) (test disd=439) 6.2 gm/dL 6.0-8.3 ALBUMIN (BEAKER) (test keqb=2167) 2.7 g/dL 3.5-5.0 BILIRUBIN TOTAL (BEAKER) (test txms=791) 0.5 mg/dL 0.2-1.2 BILIRUBIN DIRECT (BEAKER) (test bpgz=700) 0.2 mg/dL 0.1-0.5 ALKALINE PHOSPHATASE (BEAKER) (test bnog=773) 36 U/L 40-150 AST (SGOT) (BEAKER) (test beha=731) 16 U/L 5-34 ALT (SGPT) (BEAKER) (test zjol=101) 10 U/L 6-55 CBC W/PLT COUNT & AUTO [id number] 12:41:00 Test Item Value Reference Range Comments WHITE BLOOD CELL COUNT (BEAKER) (test bydj=058) 6.6 K/ L 3.5-10.5 RED BLOOD CELL COUNT (BEAKER) (test xbon=617) 2.65 M/ L 3.93-5.22 HEMOGLOBIN (BEAKER) (test ehbi=176) 8.6 GM/DL 11.2-15.7 HEMATOCRIT (BEAKER) (test solg=711) 28.1 % 34.1-44.9 MEAN CORPUSCULAR VOLUME (BEAKER) (test qbrp=019) 106.0 fL 79.4-94.8 MEAN CORPUSCULAR HEMOGLOBIN (BEAKER) (test 32.5 pg 25.6-32.2 vpsw=062) MEAN CORPUSCULAR HEMOGLOBIN CONC (BEAKER) (test 30.6 GM/DL 32.2-35.5 miyh=798) RED CELL DISTRIBUTION WIDTH (BEAKER) (test 13.6 % 11.7-14.4 rieo=581) PLATELET COUNT (BEAKER) (test smtk=947) 285 K/CU MM 150-450 MEAN PLATELET VOLUME (BEAKER) (test sxrb=802) 8.3 fL 9.4-12.3 NUCLEATED RED BLOOD CELLS (BEAKER) (test 0 /100 WBC 0-0 orkh=897) NEUTROPHILS RELATIVE PERCENT (BEAKER) (test 71 % bgga=771) LYMPHOCYTES RELATIVE PERCENT (BEAKER) (test 22 % nzjt=305) MONOCYTES RELATIVE PERCENT (BEAKER) (test 6 % ntyp=877) EOSINOPHILS RELATIVE PERCENT (BEAKER) (test 0 % oafq=035) BASOPHILS RELATIVE PERCENT (BEAKER) (test 1 % xhrw=296) NEUTROPHILS ABSOLUTE COUNT (BEAKER) (test 4.68 K/ L 1.56-6.13 yruo=375) LYMPHOCYTES ABSOLUTE COUNT (BEAKER) (test 1.43 K/ L 1.18-3.74 wmoj=021) MONOCYTES ABSOLUTE COUNT (BEAKER) (test 0.39 K/ L 0.24-0.36 hwlw=939) EOSINOPHILS ABSOLUTE COUNT (BEAKER) (test 0.02 K/ L 0.04-0.36 zxqy=880) BASOPHILS ABSOLUTE COUNT (BEAKER) (test 0.03 K/ L 0.01-0.08 hyxp=327) IMMATURE GRANULOCYTES-RELATIVE PERCENT (BEAKER) 1 % 0-1 (test hift=3722) U/S, ABDOMINAL, WITH [id number] 10:51:00Reason for exam:->ascites, evaluate for PVTFINAL REPORT [...] evidence of portal vein thrombosis. Signed: Vahid Espinozaeport Verified Date/Time: 10:51:26 Reading Location: [address] Ultrasound Reading Room BODY FLUID CELL COUNT WITH [id number] 19:54:00 Test Item Value Reference Range Comments APPEARANCE FLUID (BEAKER) (test dcxl=170) Slightly Hazy Clear COLOR FLUID (BEAKER) (test sqik=546) Yellow Colorless, Straw RBC FLUID (BEAKER) (test xjjk=184) 262 /cu mm <=1 ADJUSTED WBC FLUID (BEAKER) (test botq=6929) 93 /cu mm <=5 LINING CELLS (BEAKER) (test idhp=9033) 4 /cu mm <=1 NEUTROPHILS FLUID (BEAKER) (test uale=1212) 1 % LYMPHS FLUID (BEAKER) (test psha=058) 14 % MONO/MACROPHAGE FLUID (BEAKER) (test 85 % opvg=359) EOSINOPHILS FLUID (BEAKER) (test ycxf=686) 0 % BASO FLUID (BEAKER) (test lmoi=792) 0 % CONTAINER BODY FLUID (BEAKER) (test EDTA Tube ebgg=3876) ALBUMIN, BODY [id number] 18:05:00 Test Item Value Reference Range Comments ALBUMIN FLUID (BEAKER) (test jryw=848) 2.6 gm/dL Reference Range: No Normals Assay performance has not been validated for this type of specimen.PROTEIN, BODY [id number] 18:05:00 Test Item Value Reference Range Comments PROTEIN FLUID (BEAKER) (test dheq=087) 4.6 g/dL Absence of reference range indicates that normals have not been defined.Assay performance has not been validated for this type of specimen.U/S, [id number] 17:07:00Reason for exam:->ascites of unclear etiology , [...] sterile technique, ultrasound guidance and a 5 Spanish coaxial needle, a single pass right lower [...] 4100 cc of fluid Signed: Brian Segundo MDReport Verified Date/Time: 02/01/2019 17:07:23 Reading Location: [place] [id number] Ultrasound Reading Room [id number] 12:56:00 Test Item Value Reference Range Comments MAGNESIUM (BEAKER) (test ckze=142) 2.2 mg/dL 1.6-2.6 BASIC METABOLIC [id number] 12:56:00 Test Item Value Reference Range Comments SODIUM (BEAKER) (test 142 meq/L 136-145 xkhx=878) POTASSIUM (BEAKER) (test 4.3 meq/L 3.5-5.1 tovu=564) CHLORIDE (BEAKER) (test 108 meq/L 98-107 vfhh=475) CO2 (BEAKER) (test 24 meq/L 22-29 tnsj=514) BLOOD UREA NITROGEN 22 mg/dL 7-21 (BEAKER) (test yvin=219) CREATININE (BEAKER) (test 1.72 mg/dL 0.57-1.25 otvt=631) GLUCOSE RANDOM (BEAKER) 139 mg/dL 70-105 (test yjcf=304) CALCIUM (BEAKER) (test 9.1 mg/dL 8.4-10.2 pkts=000) EGFR (BEAKER) (test 36 mL/min/1.73 sq m ESTIMATED GFR IS NOT jfrz=4826) ACCURATE CREATININE CLEARANCE IN PREDICTING GLOMERULAR FILTRATION RATE. ESTIMATED GFR IS NOT APPLICABLE FOR DIALYSIS PATIENTS. HEPATIC FUNCTION [id number] 12:56:00 Test Item Value Reference Range Comments TOTAL PROTEIN (BEAKER) (test wyew=018) 7.0 gm/dL 6.0-8.3 ALBUMIN (BEAKER) (test jlwu=2607) 3.1 g/dL 3.5-5.0 BILIRUBIN TOTAL (BEAKER) (test elci=702) 0.6 mg/dL 0.2-1.2 BILIRUBIN DIRECT (BEAKER) (test zbfj=791) 0.4 mg/dL 0.1-0.5 ALKALINE PHOSPHATASE (BEAKER) (test lmle=147) 42 U/L 40-150 AST (SGOT) (BEAKER) (test tcta=115) 15 U/L 5-34 ALT (SGPT) (BEAKER) (test oxko=541) 10 U/L 6-55 PROTHROMBIN [id number] 12:51:00 Test Item Value Reference Range Comments PROTIME (BEAKER) (test qwfs=776) 16.5 seconds 11.7-14.7 INR (BEAKER) (test meqg=695) 1.3 <=5.9 RECOMMENDED COUMADIN/WARFARIN INR THERAPY RANGESSTANDARD DOSE: 2.0 - 3.0 Includes: PROPHYLAXIS forvenous thrombosis, systemic embolization; TREATMENT for venous thrombosis and/or pulmonary embolus.HIGH RISK: Target INR is 2.5-3.5 for patients with mechanical heart valves.CBC (HEMOGRAM ONLY)[id number] 12:38:00 Test Item Value Reference Range Comments WHITE BLOOD CELL COUNT (BEAKER) (test kngp=255) 9.6 K/ L 3.5-10.5 RED BLOOD CELL COUNT (BEAKER) (test grms=127) 2.77 M/ L 3.93-5.22 HEMOGLOBIN (BEAKER) (test ixpv=290) 9.1 GM/DL 11.2-15.7 HEMATOCRIT (BEAKER) (test ypzb=350) 28.9 % 34.1-44.9 MEAN CORPUSCULAR VOLUME (BEAKER) (test ajke=665) 104.3 fL 79.4-94.8 MEAN CORPUSCULAR HEMOGLOBIN (BEAKER) (test 32.9 pg 25.6-32.2 eluj=609) MEAN CORPUSCULAR HEMOGLOBIN CONC (BEAKER) (test 31.5 GM/DL 32.2-35.5 cbea=393) RED CELL DISTRIBUTION WIDTH (BEAKER) (test 13.7 % 11.7-14.4 oatv=149) PLATELET COUNT (BEAKER) (test voqq=229) 318 K/CU MM 150-450 MEAN PLATELET VOLUME (BEAKER) (test hdrl=060) 8.3 fL 9.4-12.3 NUCLEATED RED BLOOD CELLS (BEAKER) (test 0 /100 WBC 0-0 mbqm=226)
[2019-03-15] MEDS ORDERED: CEFAZOLIN/SWI 1gm 1 GM/10 ML SYR ONE (08:55)
[2019-03-15] MEDS ORDERED: Ringers Lactate 1,000 ML IV ONE (08:55)
[2019-03-15] MEDS ORDERED: NS 0.9% VIAL 20 ML ONE (09:52)
[2019-03-15] MEDS ORDERED: HEPARIN 5000 UNIT/ML 1 ML VIAL ONE (09:52)
[2019-03-15] MEDS ORDERED: PROPOFOL 200 MG/20 ML VIAL IV ONE (09:53)
[2019-03-15] MEDS ORDERED: LIDOCAINE 1% MPF 30 ML VIAL ONE (09:53)
[2019-03-15] MEDS ORDERED: FENTANYL CITR 100 MCG/2 ML ONE (09:54)
[2019-03-15] MEDS ORDERED: LIDOCAINE 1% MPF 2 ML AMPULE ONE (09:55)
[2019-03-15] MEDS ORDERED: ONDANSETRON 4 MG/2 ML VIAL ONE ×2 (09:55→10:34)
[2019-03-15] MEDS ORDERED: MIDAZOLAM HCL 2 MG/2 ML INJ ONE (09:55)
--- NOTE | 2019-03-15 11:53 | RAD REPORT ---
EXAM DESCRIPTION: Luis At Single View03/15/2019 11:47 am CLINICAL HISTORY: Device placement central line placement COMPARISON: February 2019 FINDINGS: A central venous line has been inserted into the superior vena cava. A pneumothorax is not seen. Small left pleural effusion. The lungs appear clear of acute infiltrate. The heart is normal size
[2019-03-15] MEDS ORDERED: MEPERIDINE HCL 25 MG/0.5 ML ONE (12:10)
--- NOTE | 2019-03-15 12:21 | RAD REPORT ---
EXAM DESCRIPTION: RAD - Fluoroscopy <1 Hour - 03/15/2019 12:14 pm CLINICAL HISTORY: Device placement central venous catheter placement FINDINGS: A central venous catheter was placed into the superior vena cava.3 fluoroscopic spot image s are submitted. The fluoroscopy time 20 second. The examination was performed by Dr. Morgan
--- NOTE | 2019-03-15 19:58 | OP ---
Date of Procedure: 03/15/2019 Surgeon: Jaden Morgan MD Preoperative Diagnosis: Right breast cancer, metastatic in nature. Postoperative Diagnosis: Right breast cancer, metastatic in nature. Procedures: 1.Right internal jugular Port-A-Cath placement. 2.Interpretation of intraoperative fluoroscopy. Estimated Blood Loss: Minimal. Specimen: None. Findings: Normal anatomy. Anesthesia: General. Complications: None. Disposition: The patient tolerated the procedure in stable condition, taken to Recovery in good gene ral condition. Procedure In Detail: The patient was brought to the OR and placed in supine position. General anest hesia was began. The patient was prepped and draped in usual sterile fashion. Lidocaine 1% infiltra navid locally. An 18-gauge needle was used to access the right IJ vein. Guidewire was passed. Positi on was confirmed with fluoroscopy. A 3 cm counterincision was made on the right anterior chest. Sub cutaneous tissue divided, pocket created. Bleeding controlled with cautery. Then a tunneling device was used to tunnel the catheter between the 2 wounds and then Seldinger technique used and tip of th e catheter placed in the SVC under fluoroscopy. Catheter cut to appropriate size, attached to the Po rt-A-Cath device. Port-A-Cath device attached to the subcutaneous tissue with 3-0 Vicryl. The Port- A-Cath flushed with heparin and packed with heparin with good blood flow. Fluoroscopy confirmed good placement of the catheter, and then, 3-0 chromic used to approximate the subcutaneous tissue and carlos se the skin. Sterile dressing was applied. The patient was awakened and taken to Recovery in good g eneral condition. /MODL Voice ID: [id number] Report ID: [id number]
--- NOTE | 2019-03-15 20:04 | DS ---
Date of Discharge: 03/15/2019 The patient will go to Day Surgery and home when stable. Disposition: Home. Condition: Stable. Discharge Instructions: Resume home medications and diet. Activity as tolerated. No heavy lifting. Remove outer dressing in 2 days. Shower. Keep wound clean and dry. Keep Steri-Strips on at all t imes. Follow up in my office in 2 weeks. Call for appointment. Tylenol No. 3 one tablet p.o. q.4 p .r.n. pain. [facility]. JUDITH/COLTEN Voice ID: [id number] Report ID: [id number]
== END 2019-03-15 13:00 | disposition home or self-care (01) ==
LOC: OR 08:17
PROVIDERS: ATTEND Surgery
PROC: 02HV33Z Insertion of Infusion Device into Superior Vena Cava, Percutaneous Approach (ICD-10-PCS; 2019-03-15)
PROC: B518YZZ Fluoroscopy of Superior Vena Cava using Other Contrast (ICD-10-PCS; 2019-03-15)
PROC: 0JH63XZ Insertion of Tunneled Vascular Access Device into Chest Subcutaneous Tissue and Fascia, Percutaneous Approach (ICD-10-PCS; principal; 2019-03-15 10:00)
DX: C50.911 Malignant neoplasm of unspecified site of right female breast (principal); C78.89 Secondary malignant neoplasm of other digestive organs; I10 Essential (primary) hypertension; Z79.899 Other long term (current) drug therapy
CPT/HCPCS: 36561; 77001; 71045; J2704; J1644 ×3; J2250; J3010; J2175; J2001; J0690; J2405 ×2; C1788; 76000

== ENCOUNTER 2019-04-01 12:44 | Emergency (ER) | payer OTHER ==
--- OUTSIDE RECORDS SUMMARY | 2019-04-01 12:47 | XMS REPORT | Clinical Summary ---
:1955 Author Organization [facility] Address [address] [place] [address] Care Team Providers Name Role Phone Michelle [...] Health Maintenance Due Date Last Done Comments COLON CANCER SCREENING 2006 SHINGLES VACCINES (#1) 2006 BREAST CANCER SCREENING 04/08/2014 04/08/2012 INFLUENZA VACCINE 06/08/2019 Results Not on fileafter 03/31/2018 Insurance Payer Benefit Plan / Subscriber ID Effective Dates Phone Address Type Group MEDICARE MEDICARE PART A xxxxxxxxxx 2014-Present [place], [place] Medicare [place] B MEDICAID MEDICAID xxxxxxxxx 2015-Present Medicaid Advance Directives Patient has advance care planning documents on file. For more information, please contact:Don [id number] [place] [address]
--- OUTSIDE RECORDS SUMMARY | 2019-04-01 12:49 | XMS REPORT | Clinical Summary ---
:1955 Author Organization [facility] Address [address] [place] [address] Care Team Providers Name Role Phone Pcp, [...] MD Shiekh Sroujieh, Krysten Yanez MD after 03/31/2018 Family History Medical History Relation Name Comments [...] 342 ms QTC Calculation(Bazett) 485 ms P [place] 45 degrees R [place] 59 degrees T [place] 41 degrees Sinus tachycardia Otherwise normal ECG [...] 320 ms QTC Calculation(Bazett) 454 ms P [place] 28 degrees R [place] 40 degrees T [place] 20 degrees Sinus tachycardia Nonspecific T wave [...] 332 ms QTC Calculation(Bazett) 467 ms P [place] 31 degrees R [place] 40 degrees T [place] 24 degrees Sinus tachycardia Otherwise normal ECG [...] PANEL Routine 02/01/2019 12:20 PM CDT after 03/31/2018 Results RHYTHM STRIP - SCAN (02/22/2019 3:51 PM CDT)Only the most recent of2 resultswithin the time period is included. Narrative Performed At EKG-SCANNED (02/22/2019 3:51 PM CDT) Narrative Performed At Manual Differential (02/20/2019 5:26 AM CDT)Only the most recent of2 resultswithin the time period is included. % Neutros 86 % [facility] % Lymphs 7 % [facility] % Monos 1 % [facility] % Metamyelo 3 (H) 0 - 0 % [facility] % Bands 3 0 - 10 % [facility] # Neutros 4.39 1.56 - 6.13 K/ul [facility] # Lymphs 0.36 (L) 1.18 - 3.74 K/ul [facility] # Monos 0.05 (L) 0.24 - 0.36 K/uL [facility] # Metamyelo 0.15 (H) 0.00 - 0.00 K/uL [facility] # Bands 0.15 0.00 - 0.80 K/uL [facility] Total Counted 100 [facility] Smudge Cells Present [facility] Large Platelet Present [facility] Anisocytosis 1+ few [facility] Poikilocytes 1+ few [facility] Schistocytes 1+ few [facility] Elliptocytes 2+ moderate [facility] Clark Cells 2+ moderate [facility] Artifact Present [facility] Platelet Conc Adequate [facility] Specimen Blood Narrative Performed At Received comment: [facility] User comments: Slide comments: WBC: SEGMENTED WITH TOXIC GRANULATION PRESENT Performing Organization Address City/State/Zipcode Phone Number [facility] [address] [place] [address] CENTER CBC with platelet count + automated diff (02/20/2019 5:26 AM CDT)Only the most recent of14 resultswithin the time period is included. WBC 5.1 3.5 - 10.5 K/L [facility] RBC 2.77 (L) 3.93 - 5.22 M/L [facility] Hemoglobin 8.4 (L) 11.2 - 15.7 GM/DL [facility] Hematocrit 26.7 (L) 34.1 - 44.9 % [facility] MCV 96.4 (H) 79.4 - 94.[address] [facility] MCH 30.3 25.6 - 32.[address] [facility] MCHC 31.5 (L) 32.2 - 35.5 GM/DL [facility] RDW 15.5 (H) 11.7 - 14.4 % [facility] Platelets 179 150 - 450 K/CU MM [facility] MPV 10.2 9.4 - 12.[address] [facility] nRBC 0 0 - 0 /[address] [facility] Specimen Blood Performing Organization Address City/[facility]/Zipcode Phone Number [address] [address] CENTER Phosphorus (02/20/2019 5:26 AM CDT)Only the most recent of10 resultswithin the time period is included. Phosphorus 1.9 (L) 2.3 - 4.7 mg/dL [facility] Specimen Blood Performing Organization Address City/[facility]/Zipcode Phone Number [address] [address] [phone] CENTER Magnesium (02/20/2019 5:26 AM CDT)Only the most recent of12 resultswithin the time period is included. Magnesium 1.5 (L) 1.6 - 2.6 mg/dL [facility] Specimen Blood Performing Organization Address City/[facility]/Zipcode Phone Number [address] [phone] CENTER Creatine Kinase (CK) (02/20/2019 5:26 AM CDT)Only the most recent of2 resultswithin the time period is included. Total CK 39 29 - 200 U/L [facility] Specimen Blood Performing Organization Address City/[facility] Phone Number [address] [address] [place] Hepatic function panel (02/20/2019 5:26 AM CDT)Only the most recent of12 resultswithin the time period is included. Protein, Total 5.4 (L) 6.0 - 8.3 gm/dL [facility] Albumin 2.9 (L) 3.5 - 5.0 g/dL [facility] Total Bilirubin 1.0 0.2 - 1.2 mg/dL [facility] Bilirubin, Direct 0.6 (H) 0.1 - 0.5 mg/dL [facility] Alkaline Phosphatase 47 40 - 150 U/L [facility] AST 44 (H) 5 - 34 U/L [facility] ALT 22 6 - 55 U/L [facility] Specimen Blood Performing Organization Address City/[facility] Phone Number [address] [address] [place] Basic Metabolic Panel (02/20/2019 5:26 AM CDT)Only the most recent of10 resultswithin the time period is included. Sodium 140 136 - 145 meq/L [facility] Potassium 3.4 (L) 3.5 - 5.1 meq/L [facility] Chloride 107 98 - 107 meq/L [facility] CO2 26 22 - 29 meq/L [facility] BUN 14 7 - 21 mg/dL [facility] Creatinine 1.71 (H) 0.57 - 1.25 mg/dL [facility] Glucose 104 70 - 105 mg/dL [facility] Calcium 7.8 (L) 8.4 - 10.2 mg/dL [facility] EGFR 37Comment: ESTIMATED GFR IS mL/min/1.73 sq m [facility] NOT ACCURATE [facility] CLEARANCE IN PREDICTING GLOMERULAR FILTRATION RATE. ESTIMATED GFR IS NOT APPLICABLE FOR DIALYSIS PATIENTS. Specimen Blood Performing Organization Address City/State/Zipcode Phone Number [place] [phone] [place] [address] CENTER TRANSFUSION SERVICE REPORT - SCAN (02/19/2019 6:00 PM CDT)Only the most recent of3 resultswithin the time period is included. Narrative Performed At Prepare Leuko-Red RBC (02/18/2019 11:54 PM CDT) CROSSMATCH COMPATIBLE SAFETRACE TX Unit ABO O Pos SAFETRACE TX UNIT NUMBER [id number] SAFETRACE TX Status TX_TIMEINCHART SAFETRACE TX Blood Bank Product RED BLOOD CELLS SAFETRACE TX PRODUCT CODE [id number] SAFETRACE [place] Specimen Other Performing Organization Address City/[facility] Phone Number [employer] US paracentesis (02/18/2019 5:38 PM CDT)Only the most recent of2 resultswithin the time period is included. Specimen Narrative Performed At FINAL REPORT Spoot[employer] Ultrasound-guided paracentesis. Clinical History: Ascites Informed consent was obtained from the patient and the risks of the procedure were explained including bleeding, infection, bowel perforation and visceral injury. Sedation: 1% Xylocaine was used as local sedation. Conscious sedation protocol was not utilized as no systemic analgesia was administered. Technique: Using sterile technique, ultrasound guidance and a 5 New Zealander coaxial needle, a single pass right lower [...] MD Report Verified Date/Time:02/18/2019 17:56:45 Reading Location: [id number] Consult Reading Room Procedure Note Interface, [...] sterile technique, ultrasound guidance and a 5 New Zealander coaxial needle, a single pass right lower [...] Report Verified Date/Time: 02/18/2019 17:56:45 Reading Location: [facility] [id number] Ortho Consult Reading Room Performing Organization Address City/State/Zipcode Phone Number [facility] PT/aPTT (02/18/2019 6:27 AM CDT) Protime 15.1 (H) 11.7 - 14.[address] [facility] INR 1.2 <=[address]9 [facility] PTT 31.5 22.5 - 36.[address] [facility] Specimen Blood Narrative Performed At RECOMMENDED COUMADIN/WARFARIN INR THERAPY [facility] RANGES STANDARD DOSE: 2.0 - 3.0 Includes: PROPHYLAXIS for venous thrombosis, systemic embolization; TREATMENT for venous thrombosis and/or pulmonary embolus. HIGH RISK: Target INR is 2.5-3.5 for patients with mechanical heart valves. Forparacentesis Forparacentesis Performing Organization Address City/State/Zipcode Phone Number [facility] [address] [place] [address] [phone] CENTER ECG 12 lead (02/18/2019 5:09 AM CDT)Only the most recent of4 resultswithin the time period is included. Specimen Narrative Performed At Ventricular Rate 121 BPM GE MUSE Atrial Rate 121 BPM P-R Interval 144 ms QRS Duration 74 ms Q-T Interval 342 ms QTC Calculation(Bazett) 485 ms P [place] 45 degrees R [place] 59 degrees T [place] 41 degrees Sinus tachycardia Otherwise normal ECG [...] 342 ms QTC Calculation(Bazett) 485 ms P [place] 45 degrees R [place] 59 degrees T [place] 41 degrees Sinus tachycardia Otherwise normal ECG When compared with ECG of 16-FEB-2019 09:02, No significant change was found Confirmed by MD Lew Roberto ([id number]) on 02/18/2019 4:23:29 PM Performing Organization Address City/[facility]/Zipcode Phone Number GE MUSE Transfuse Leuko-Red RBC (02/17/2019 5:47 PM CDT)Only the most recent of2 resultswithin the time period is included.Type and screen, automated (2018 12:01 PM CDT)Only the most recent of2 resultswithin the time period is included. ABO/RH AUTOMATED (BEAKER) O POSITIVE [facility] Ab Scrn NEGATIVE [facility] Specimen Blood Performing Organization Address City/State/Zipcode Phone Number [facility] [address] [place] [phone] Calcium, Ionized (02/17/2019 7:48 AM CDT)Only the most recent of6 resultswithin the time period is included. Calcium, Ion 0.92 (L) 1.12 - 1.27 mmol/L [facility] pH, Blood 7.41 [facility] Specimen Blood Performing Organization Address City/State/Zipcode Phone Number [address] [address] [phone] CENTER Uric acid (02/17/2019 7:48 AM CDT) Uric Acid 8.7 (H) 2.6 - 7.2 mg/dL [facility] Specimen Blood Performing Organization Address City/State/Zipcode Phone Number [facility] [address] [place] [address] CENTER Comprehensive metabolic panel (02/17/2019 7:48 AM CDT)Only the most recent of6 resultswithin the time period is included. Protein, Total 5.9 (L) 6.0 - 8.3 gm/dL [facility] Albumin 3.2 (L) 3.5 - 5.0 g/dL [facility] Alkaline Phosphatase 46 40 - 150 U/L [facility] Total Bilirubin 0.8 0.2 - 1.2 mg/dL [facility] Sodium 139 136 - 145 meq/L [facility] Potassium 3.5 3.5 - 5.1 meq/L [facility] Chloride 106 98 - 107 meq/L [facility] CO2 23 22 - 29 meq/L [facility] BUN 20 7 - 21 mg/dL [facility] Creatinine 2.29 (H) 0.57 - 1.25 mg/dL [facility] Glucose 130 (H) 70 - 105 mg/dL [facility] Calcium 7.8 (L) 8.4 - 10.2 mg/dL [facility] AST 32 5 - 34 U/L [facility] ALT 16 6 - 55 U/L [facility] EGFR 26Comment: ESTIMATED GFR mL/min/1.73 sq m [facility] IS NOT ACCURATE [facility] CREATININE CLEARANCE IN PREDICTING GLOMERULAR FILTRATION RATE. ESTIMATED GFR IS NOT APPLICABLE FOR DIALYSIS PATIENTS. Specimen Blood Performing Organization Address City/[facility] Cent[facility] Phone Number [address] [address] CENTER Clostridium difficile GDH Toxin (02/16/2019 5:52 PM CDT)Only the most recent of2 resultswithin the time period is included. C. Difficle Toxin Negative Negative [facility] C. Difficile GDH Antigen NegativeComment: No Negative [facility] indication of Clostridium MEDICAL CENTER difficile infection and no colonization. Discontinue enteric isolation and therapy. Specimen Stool Narrative Performed At Testing performed by Alere Rapid Cassette [facility] Assay.For GDH, published sensitivity of the assay is 98.7% compared to cytotoxicity testing.For Toxin AB, published sensitivity is 87.8% and specificity 99.4% compared to cytotoxicity testing. Verification of kit performance was done by the [facility] Microbiology Lab prior to clinical use. Performing Organization Address City/[facility]/Zipcode Phone Number [address] [address] CENTER Manual Differential (02/16/2019 5:33 AM CDT) % Neutros (manual) 74 % [facility] % Lymphs (manual) 14 % [facility] % Monos (manual) 10 % [facility] % Eos (manual) 1 % [facility] % Baso (manual) 1 % [facility] # Neutros (manual) 5.40 1.80 - 8.00 K/L [facility] # Lymphs (manual) 1.02 (L) 1.48 - 4.50 K/L [facility] # Monos (manual) 0.73 0.00 - 1.30 K/L [facility] # Eos (manual) 0.07 0.00 - 0.50 K/L [facility] # Baso (manual) 0.07 0.00 - 0.20 K/L [facility] Total Counted 100 [facility] WBC Morphology Normal [facility] Platelet Morphology Normal [facility] RBC Morphology Normal [facility] Specimen Blood Performing Organization Address City/State/Zipcode Phone Number [place] [phone] [place] [address] [phone] CENTER XR chest 1 view portable / bedside (02/15/2019 8:25 PM CDT)Only the most recent of3 resultswithin the time period is included. Specimen Narrative Performed At FINAL REPORT [facility] History: PICC line placement. Comparison: 02/13/2019 Findings: [...] MD Report Verified Date/Time:02/15/2019 21:33:22 Reading Location: [address] Reading Room Procedure Note Interface, External [...] Report Verified Date/Time: 02/15/2019 21:33:22 Reading Location: [address] Reading Room Performing Organization Address City/[facility] Phone Number RIS Protein, random urine (02/15/2019 5:57 AM CDT) Protein, Urine 58 (H) 0 - 14 mg/dL [facility] Specimen Urine Performing Organization Address [facility] Phone Number [address] [address] [phone] [place] Creatinine, random urine (02/15/2019 5:57 AM CDT)Only the most recent of2 resultswithin the time period is included. Creatinine, Ur 166.6 mg/dL [facility] Specimen Urine Narrative Performed At Reference Range: No Normals [facility] Performing Organization Address City/[facility] Cent[facility]ode Phone Number [address] [address] CENTER Hemoglobin and hematocrit (02/14/2019 12:53 PM CDT) Hemoglobin 8.1 (L) 11.2 - 15.7 GM/DL [facility] Hematocrit 25.7 (L) 34.1 - 44.9 % [facility] Specimen Blood Performing Organization Address City/[facility] Cent[facility] Phone Number [facility] [address] [place] [address] CENTER ECHOCARDIOGRAM REPORT - SCAN (02/13/2019 9:11 PM CDT) Narrative Performed At 2D Echo W/Doppler(CW/PW/Color) (02/13/2019 1:10 PM CDT) Ejection Fraction [facility] ECHO [facility] Specimen Narrative Performed At Transthoracic Echocardiography Report (TTE) [facility]CHO [facility] Demographics Patient NameANGIE SPRING Date of Study02/13/2019 Female Visit [id number] Black Room [id number] Number Date of 1955Referring Roslyn Espinosa Age 63 year(s)SonographBere Sheehan [facility] Gum Mixer Javier Zamora Interpreting Jeremy Shepherd MD Physician [...] of Study 02/13/2019 Gender Female Visit Number [id number] Race Black Room Number [id number] Number Date of 1955 Referring Physician Duarte Espinosa Age 63 year(s) Sas Architect Angeles Sheehan, [facility] Gum Mixer Javier Zamora Interpreting Jeremy Shepherd MD Physician [...] LVOT CI: 4.03 l/min/m^2 Performing Organization Address City/[facility] Cent[facility]ode Phone Number [facility] ECHO HEARTLAB MKCKESSON CPACS B-type Natriuretic Factor (BNP) (02/13/2019 10:03 AM CDT)Only the most recent of3 resultswithin the time period is included. BNP 107 (H) 0 - 100 pg/mL [facility] Specimen Blood Performing Organization Address [facility] Phone Number [facility] [address] [place] [address] [phone] CENTER PERIPHERAL VASCULAR REPORT - SCAN (02/11/2019 9:11 PM CDT) Narrative Performed At CT abdomen/pelvis without iv contrast (02/11/2019 3:25 PM CDT) Specimen Narrative Performed At FINAL REPORT [employer] TECHNIQUE: CT of the abdomen and pelvis [...] MD Report Verified Date/Time:02/11/2019 16:19:52 Reading Location: [facility] C013Y CT Body Reading Room Procedure Note [...] Report Verified Date/Time: 02/11/2019 16:19:52 Reading Location: [facility] C013Y CT Body Reading Room Performing Organization Address City/State/Zipcode Phone Number MtoV RIS Venous doppler legs bilateral (02/10/2019 3:00 PM CDT) Ejection Fraction [facility] ECHO HEARTLAB MKCKESSON CPA Specimen Impressions Performed At Right Impression [facility] ECHO HEARTLAB [facility] CPACS 1. There is [...] At LAB - Lower Extremities DVT Study [facility] ECHO HEARTLAB MKCK[facility]ON [facility] Demographics Patient NameANGIE SPRING Date of Study 02/10/2019 63 Visit [id number] Female of 1955 Referring Charles Heredia Number [id number] Physician Sas Architect Ryan Vasquez RUST Physician Procedure Type of Study: Veins: Lower [...] of Study 02/10/2019 Age 63 Visit Number [id number] Gender Female Accession Number [id number] Date of 1955 Referring Charles Jaimes Room Number 2434 Physician Sas Architect Ryan Small Interpreting Domi Vasquez, T Physician [...] are measured in cm Performing Organization Address City/State/[facility] Phone Number [facility] [employer] Venous doppler arms bilateral (02/10/2019 3:00 PM CDT) Ejection Fraction [facility] [employer] Specimen Impressions Performed At Right Impression [facility] [employer] 1. There is no deep venous obstruction [...] Upper Extremities Veins [facility] ECHO HEARTLAB MKCKESSON [facility] Demographics Patient NameANGIE SPRING Date of Study 02/10/2019 63 Visit [id number] Female of 1955 Referring Charles Heredia Number [id number] Physician Sas Architect Ryan Vasquez T Physician Procedure Type of [...] of Study 02/10/2019 Age 63 Visit Number [id number] Gender Female Accession Number [id number] Date of 1955 Referring [facility] Room Number 2434 Physician Sas Architect Ryan Small Interpreting Domi Vasquez T Physician [...] are measured in cm Performing Organization Address City/[facility] Phone Number [facility] ECHO HEART[facility] MKCKESSON [facility] Anti-Mitochondrial Ab, reflex to titer (02/10/2019 3:53 AM CDT) Scan Result [employer] Specimen Blood Narrative Performed At Performing Organization Address [facility] Phone [place] [address] [address] [place] [address] Actin (Smooth Muscle) Antibody, IgG (02/10/2019 3:53 AM CDT) Anti-Smooth Muscle Ab <20 See Note: U [facility] Comment: [facility] Reference Range: <20 NEGATIVE [...] Specimen Blood Narrative Performed At Performing Lab [facility] [address] [place] [address] Patricia Juan MD, PhD, OG Performing Organization Address City/State/Zipcode Phone Number [facility], [place] [address] [employer] [address] [facility] Hepatitis A antibody, IgG (02/09/2019 6:14 PM CDT) Hep A IgG Reactive (A) Nonreactive [facility] Specimen Blood Performing Organization Address [facility] Centercode Phone Number [address] [address] CENTER ABORH, manual (02/09/2019 6:14 PM CDT) ABO Grouping O [facility] Rh Factor POS [facility] Specimen Blood Performing Organization Address [facility] Cent[facility] Phone Number [address] [address] [phone] Iron, TIBC, % sat. (without ferritin) (02/09/2019 6:14 PM CDT) Iron 23.0 (L) 40.0 - 160.0 ug/dL [facility] TIBC 94 (L) 250 - 450 ug/dL [facility] Iron % Saturation 24 20 - 55 % [facility] Specimen Blood Performing Organization Address [facility] Phone Number [address] [address] [phone] [place] Hepatitis C antibody (02/09/2019 6:14 PM CDT) Hepatitis C Ab NON-REACTIVE Nonreactive [facility] Specimen Blood Performing Organization Address [facility] Cent[facility] Phone Number [address] [address] [phone] [place] CARROL Titer & Pattern (02/09/2019 6:14 PM CDT) CARROL Titer 1:160 [facility] CARROL Pattern Homogeneous [facility] Specimen Blood Performing Organization Address [facility] Cent[facility]ode Phone Number [address] [address] [phone] [place] Hepatitis B surface antibody (02/09/2019 6:14 PM CDT) Hep B S Ab <8.0 <8.0 mIU/mL [facility] Specimen Blood Performing Organization Address [facility] Phone Number [address] [address] [place] Hepatitis B surface antigen (02/09/2019 6:14 PM CDT) hepatitis B Surface Ag NON-REACTIVE Nonreactive [facility] Specimen Blood Performing Organization Address [facility] Phone Number [address] [address] [place] Anti-Nuclear Antibody (CARROL) (02/09/2019 6:14 PM CDT) CARR[place] Positive (A) Negative [facility] Specimen Blood Narrative Performed At Test performed by IFA method. [facility] Performing Organization Address [facility] Phone Number [address] [address] [place] Gamma Glutamyl Transferase (GGT) (02/09/2019 6:14 PM CDT) GGT 21Comment: Specimen slightly 9 - 64 U/L [facility] hemolyzed CENTER Specimen Blood Performing Organization Address [facility] Phone Number [address] [address] [place] Immunoglobulin G (IgG) (02/09/2019 6:14 PM CDT) IgG 926 540-1,822 mg/dL [facility] Specimen Blood Performing Organization Address [facility] Phone Number [address] [address] [place] Ferritin (02/09/2019 6:14 PM CDT) Ferritin 1,896 (H) 5 - 275 ng/mL [facility] Specimen Blood Performing Organization Address City/State/Zipcode Phone Number [facility] [address] [place] [address] [place] US abdominal with doppler (02/09/2019 5:45 PM CDT)Only the most recent of2 resultswithin the time period is included. Specimen Narrative Performed At FINAL REPORT [employer] INDICATION: Cirrhosis. TECHNIQUE: Ultrasound of the Abdomen [...] MD Report Verified Date/Time:02/09/2019 20:08:48 Reading Location: [facility] B1 [id number] Consult Reading Room Procedure Note [...] Report Verified Date/Time: 02/09/2019 20:08:48 Reading Location: [address] Consult Reading Room Performing Organization Address City/State/Zipcode Phone Number [facility] Body fluid culture + gram stain (02/09/2019 4:00 PM CDT)Only the most recent of2 resultswithin the time period is included. Result No growth [facility] Gram Stain Result <1+ White blood cells seen [facility] Gram Stain Result No organisms seen [facility] Specimen Body Fluid Performing Organization Address City/[facility]/Zipcode Phone Number [facility] [address] [place] [address] C[place] Cytology (02/09/2019 4:00 PM CDT)Only the most recent of2 resultswithin the time period is included. Case Report Medical Cytology Report Case: [id number] [facility] Authorizing Provider:Charles Jaimes NP Collected: 02/09/[address] [facility] Ordering Location: [place] [address] ICUReceived: 02/10/2019 0805 Pathologist: Ayesha Vance MD Specimen:Peritoneal Fluid DIAGNOSIS PERITONEAL FLUID (CYTOSPINS AND CELL BLOCK): [facility] - SCATTERED ATYPICAL CELLS, COMPATIBLE WITH METASTATIC ADENOCARCINOMA [facility] (SEE COMMENT) Signing Pathologist Direct Phone Line: [phone] COMMENT The patient has a recent [facility] sample of peritoneal fluid [facility] ([id number]) with metastatic adenocarcinoma. In the current sample, atypical cells with similar features are seen. Please see the prior sample ([id number]) for additional evaluation and information. CPT Code(s) 00736, [address] [facility] CLINICAL DATA Breast ca s/p chemo/xrt, and e/o recurrent adenocarcinoma on malignant ascites 02/03/19(see [id number]) [facility] SPECIMEN SOURCE PERITONEAL FLUID [facility] GROSS DESCRIPTION 900 mls yellow; 4 cytospins, cell block [facility] Collected: [id number] [facility] Received: [id number] STATEMENT OF ADEQUACY Satisfactory [facility] Gross assessment was [facility] performed at [place], Department [facility], [address] [place] [id number], Technical component was [facility] performed at [place], Department of [facility] Pathology, [address] [place] [id number], Professional component was [facility] performed at [place], Department [facility], [address] [place] [address], Specimen Body Fluid Narrative Performed At Performing Organization Address [facility]/Zipcode Phone Number [facility] [address] [place] [address] [place] Body fluid cell count with differential (02/09/2019 3:59 PM CDT)Only the most recent of2 resultswithin the time period is included. Appearance Slightly Hazy (A) Clear [facility] Color Yellow (A) Colorless, Straw [facility] RBCs 200 (H) <=1 /cu mm [facility] Adjusted WBC Count 88 (H) <=5 /cu mm [facility] Lining Cells 2 (H) <=1 /cu mm [facility] % Segs 1 % [facility] % Lymphs 57 % [facility] % Monos 40 % [facility] % Eos 2 % [facility] % Baso 0 % [facility] Container Body Fluid EDTA Tube [facility] Specimen Body Fluid Performing Organization Address [facility]ode Phone Number [place] [phone] [place] [address] [phone] [place] Lactate dehydrogenase (LDH), body fluid (02/09/2019 3:59 PM CDT) LDH, Fluid 288 U/L [facility] Specimen Body Fluid Narrative Performed At Absence of reference range indicates that [facility] normals have not been defined. Assay performance has not been validated for this type of specimen. Performing Organization Address [facility]/Zipcode Phone Number [facility] [address] [place] [address] [phone] [place] Albumin, body fluid (02/09/2019 3:59 PM CDT)Only the most recent of2 resultswithin the time period is included. Albumin, Fluid 2.3 gm/dL [facility] Specimen Body Fluid Narrative Performed At Reference Range:No Normals [facility] Assay performance has not been validated for this type of specimen. Performing Organization Address City/[facility] Phone Number [facility] [address] [place] [address] C[place] Urinalysis w/Microscopic + Reflex to Culture (02/09/2019 3:35 PM CDT) Color, UA Yellow [facility] Clarity, UA Hazy [facility] Specific [place], UA 1.015 1.001 - 1.035 [facility] pH, UA 5.5 5.0 - 8.0 [facility] Protein, UA 20 mg/dL (A) Negative [facility] Glucose, UA Negative Negative [facility] Ketones, UA Trace (A) Negative [facility] Bilirubin, UA Negative Negative [facility] Blood, UA Negative Negative [facility] Nitrite, UA Negative Negative [facility] Leukocytes, UA Large (A) Negative [facility] Urobilinogen, UA 0.2 0.2 - 1.0 mg/dL [facility] RBC, UA 1 /HPF [facility] WBC, UA 10 /HPF [facility] Squam Epithel, UA 3 /HPF [facility] Hyaline Casts, UA 2 /LPF [facility] Crystals, Urine Rare [facility] Yeast Occasional [facility] Specimen Source [facility] Specimen Urine Performing Organization Address City/[facility]/Zipcode Phone Number [address] [address] [phone] [place] Urea Nitrogen, random urine (02/09/2019 3:35 PM CDT) Urea Nitrogen, Ur 557 mg/dL [facility] Specimen Urine Narrative Performed At Reference Range: No Normals [facility] Performing Organization Address [facility] Phone Number [address] [address] [place] Sodium, random urine (02/09/2019 3:35 PM CDT) Sodium Urine <20 meq/L [facility] Specimen Urine Narrative Performed At Reference Range: No Normals [facility] Performing Organization Address [facility] Phone Number [address] [address] [phone] [place] Urine culture (02/09/2019 3:35 PM CDT) Result RENETTA GLABRATA (A) [facility] Specimen Urine Performing Organization Address [facility] Phone Number [address] [address] [place] Blood Culture - Routine (Left Venipuncture) (02/09/2019 2:54 PM CDT) Result No growth in [address] [facility] Specimen Blood Performing Organization Address [facility]/Zipcode Phone Number [address] [address] [phone] [place] Procalcitonin (02/09/2019 2:53 PM CDT) Procalcitonin 0.12 (H) <0.05 ng/mL [facility] Specimen Blood Narrative Performed At SEPSIS RISK (ng/mL) [facility] Low:0.05-0.50 Intermediate: 0.51-2.00 High: >=2.01 Performing Organization Address [facility] Phone Number [address] [address] [place] Troponin I (02/09/2019 2:53 PM CDT) Troponin I <0.01 0.00 - 0.03 ng/mL [facility] Specimen Blood Narrative Performed At Troponin I (TnI) levels must be interpreted [facility] in the context of the presenting [...] disease, and persistent tachyarrhythmia. Performing Organization Address [facility] Phone Number [address] [address] [phone] [place] Lactic acid, venous (02/09/2019 2:53 PM CDT) Lactate, Venous 1.3Comment: Specimen 0.5 - 2.2 mmol/L [facility] moderately hemolyzed [facility] Specimen Blood Performing Organization Address [facility] Phone Number [address] [address] [place] Prothrombin time/INR (02/09/2019 2:53 PM CDT)Only the most recent of2 resultswithin the time period is included. Protime 16.0 (H) 11.7 - 14.[address] [facility] INR 1.3 <=[address]9 [facility] Specimen Blood Narrative Performed At RECOMMENDED COUMADIN/WARFARIN INR THERAPY [facility] RANGES STANDARD DOSE: 2.0 - 3.0 Includes: PROPHYLAXIS for venous thrombosis, systemic embolization; TREATMENT for venous thrombosis and/or pulmonary embolus. HIGH RISK: Target INR is 2.5-3.5 for patients with mechanical heart valves. Performing Organization Address [facility]/Zipcode Phone Number [address] [address] [place] Fibrinogen (02/09/2019 2:53 PM CDT) Fibrinogen 718 (H) 225 - 434 mg/dl [facility] Specimen Blood Performing Organization Address [facility] Phone Number [address] [address] [place] Ammonia (02/09/2019 2:53 PM CDT) Ammonia 17 (L)Comment: Specimen 18 - 72 mol/L [facility] moderately hemolyzed [facility] Specimen Blood Performing Organization Address [facility] Phone Number [address] [address] [place] STOOL PATH CHARGE (02/02/2019 1:35 PM CDT) Pathogen exam charged Done [facility] Specimen Stool Performing Organization Address [facility] Phone Number [address] [address] [place] Shiga Toxin Screen (02/02/2019 1:35 PM CDT) Shiga toxin 1 Not detected Not detected [facility] Shiga toxin 2 Not detected Not detected [facility] Specimen Stool Narrative Performed At Resubmit new specimen if clinically [facility] indicated. Performing Organization Address [facility] Phone Number [address] [address] [place] Stool culture + Shiga toxin (02/02/2019 1:35 PM CDT) Result No Salmonella, Shigella or [facility] Campylobacter isolated [facility] Specimen Stool Performing Organization Address [facility]/Zipcode Phone Number [address] [address] [place] Protein, body fluid (02/01/2019 4:55 PM CDT) Protein, Fluid 4.6 g/dL [facility] Specimen Body Fluid Narrative Performed At Absence of reference range indicates that [facility] normals have not been defined. Assay performance has not been validated for this type of specimen. Performing Organization Address City/[facility] Phone Number [facility] [address] [place] [address] CENTER CBC (Hemogram only) (02/01/2019 12:20 PM CDT) WBC 9.6 3.5 - 10.5 K/L [facility] RBC 2.77 (L) 3.93 - 5.22 M/L [facility] Hemoglobin 9.1 (L) 11.2 - 15.7 GM/DL [facility] Hematocrit 28.9 (L) 34.1 - 44.9 % [facility] MCV 104.3 (H) 79.4 - 94.[address] [facility] MCH 32.9 (H) 25.6 - 32.[address] [facility] MCHC 31.5 (L) 32.2 - 35.5 GM/DL [facility] RDW 13.7 11.7 - 14.4 % [facility] Platelets 318 150 - 450 K/CU MM [facility] MPV 8.3 (L) 9.4 - 12.[address] [facility] nRBC 0 0 - 0 /[address] [facility] Specimen Blood Performing Organization Address City/State/Zipcode Phone Number [facility] [address] [place] [address] [phone] [place] after 03/31/2018 Insurance Payer Benefit Plan / Group Subscriber ID Type Phone Address MEDICARE MEDICARE A B xxxxxxxxxxx Medicare MEDICAID MEDICAID [facility] xxxxxxxxx Medicaid Advance Directives For more information, please contact:[address] [phone] Code Status Date Activated Date Inactivated Comments Full Code 02/09/2019 6:02 PM 02/20/2019 11:35 PM This code status was determined by: Patient Full Code 01/31/2019 10:57 PM 02/03/2019 7:00 PM This code status was determined by: Patient
--- OUTSIDE RECORDS SUMMARY | 2019-04-01 12:52 | XMS REPORT ---
:1955 [facility] [place] [address] Care Team Providers Name Role Phone DANIELLE [...] Comments WHITE BLOOD CELL COUNT (BEAKER) (test zpah=844) 5.1 K/ L 3.5-10.5 RED BLOOD CELL COUNT (BEAKER) (test xwle=650) 2.77 M/ L 3.93-5.22 HEMOGLOBIN (BEAKER) (test dxht=980) 8.4 GM/DL 11.2-15.7 HEMATOCRIT (BEAKER) (test ufsv=443) 26.7 % 34.1-44.9 MEAN CORPUSCULAR VOLUME (BEAKER) (test mkqe=906) 96.4 fL 79.4-94.8 MEAN CORPUSCULAR HEMOGLOBIN (BEAKER) (test gick=055) 30.3 pg 25.6-32.2 MEAN CORPUSCULAR HEMOGLOBIN CONC (BEAKER) (test vkld=297) 31.5 GM/DL 32.2- 35.5 RED CELL DISTRIBUTION WIDTH (BEAKER) (test viga=151) 15.5 % 11.7-14.4 PLATELET COUNT (BEAKER) (test dkyq=827) 179 K/CU MM 150-450 MEAN PLATELET VOLUME (BEAKER) (test zhdj=668) 10.2 fL 9.4-12.3 NUCLEATED RED BLOOD CELLS (BEAKER) (test auhg=147) 0 /100 WBC 0-0 (CELLAVISION MANUAL DIFF)2019-02-20 12:08:00 Test Item Value Reference Range Comments NEUTROPHILS - REL (CELLAVISION)(BEAKER) (test 86 % slnv=3653) LYMPHOCYTES - REL (CELLAVISION)(BEAKER) (test 7 % oxla=8391) MONOCYTES - REL (CELLAVISION)(BEAKER) (test 1 % vaxb=3315) METAMYELOCYTES - REL (CELLAVISION)(BEAKER) (test 3 % 0-0 kgps=1987) BANDS - REL (CELLAVISION)(BEAKER) (test 3 % 0-10 comk=7164) NEUTROPHILS - ABS (CELLAVISION)(BEAKER) (test 4.39 K/ul 1.56-6.13 uvcb=7201) LYMPHOCYTES - ABS (CELLAVISION)(BEAKER) (test 0.36 K/ul 1.18-3.74 frzd=1528) MONOCYTES - ABS (CELLAVISION)(BEAKER) (test 0.05 K/uL 0.24-0.36 oxnl=8585) METAMYELOCYTES - ABS (CELLAVISION)(BEAKER) (test 0.15 K/uL 0.00-0.00 uinh=3084) BANDS - ABS (CELLAVISION)(BEAKER) (test 0.15 K/uL 0.00-0.80 bqxk=5063) TOTAL COUNTED (BEAKER) (test mxdo=8009) 100 SMUDGE CELLS (BEAKER) (test jimx=7220) Present LARGE PLT(BEAKER) (test gdby=0808) Present ANISOCYTOSIS (BEAKER) (test qbqh=817) 1+ few POIKILOCYTES (BEAKER) (test gqih=914) 1+ few SCHISTOCYTES (BEAKER) (test uxqg=955) 1+ few ELLIPTOCYTES (BEAKER) (test amqj=635) 2+ moderate VIDHI CELLS (BEAKER) (test mant=732) 2+ moderate ARTIFACT (CELLAVISION)(BEAKER) (test qlxr=4339) Present PLATELET CONCENTRATION (CELLAVISION)(BEAKER) Adequate (test nkyi=7659) Received comment: User comments: Slide comments: WBC: SEGMENTED WITH TOXIC GRANULATION PRESENTBASIC METABOLIC [id number] 07:54:00 Test Item Value Reference Range Comments SODIUM (BEAKER) (test 140 meq/L 136-145 wcxq=738) POTASSIUM (BEAKER) (test 3.4 meq/L 3.5-5.1 jjba=198) CHLORIDE (BEAKER) (test 107 meq/L 98-107 bdsk=010) CO2 (BEAKER) (test 26 meq/L 22-29 bxdl=228) BLOOD UREA NITROGEN 14 mg/dL 7-21 (BEAKER) (test iydt=270) CREATININE (BEAKER) (test 1.71 mg/dL 0.57-1.25 ioju=859) GLUCOSE RANDOM (BEAKER) 104 mg/dL 70-105 (test ejot=309) CALCIUM (BEAKER) (test 7.8 mg/dL 8.4-10.2 qrxj=514) EGFR (BEAKER) (test 37 mL/min/1.73 sq m ESTIMATED GFR IS NOT ruyq=5970) ACCURATE CREATININE CLEARANCE IN PREDICTING GLOMERULAR FILTRATION RATE. ESTIMATED GFR IS NOT APPLICABLE FOR DIALYSIS PATIENTS. [id number] 07:48:00 Test Item Value Reference Range Comments PHOSPHORUS (BEAKER) (test oijn=392) 1.9 mg/dL 2.3-4.7 [id number] 07:48:00 Test Item Value Reference Range Comments MAGNESIUM (BEAKER) (test vyis=661) 1.5 mg/dL 1.6-2.6 HEPATIC FUNCTION [id number] 07:48:00 Test Item Value Reference Range Comments TOTAL PROTEIN (BEAKER) (test pnkq=209) 5.4 gm/dL 6.0-8.3 ALBUMIN (BEAKER) (test dnri=5202) 2.9 g/dL 3.5-5.0 BILIRUBIN TOTAL (BEAKER) (test djdz=266) 1.0 mg/dL 0.2-1.2 BILIRUBIN DIRECT (BEAKER) (test exhe=209) 0.6 mg/dL 0.1-0.5 ALKALINE PHOSPHATASE (BEAKER) (test cfpe=090) 47 U/L 40-150 AST (SGOT) (BEAKER) (test cidy=678) 44 U/L 5-34 ALT (SGPT) (BEAKER) (test jito=446) 22 U/L 6-55 CREATINE KINASE (CK)2019-02-20 07:48:00 Test Item Value Reference Range Comments CREATINE KINASE TOTAL (BEAKER) (test idti=744) 39 U/L 29-200 [id number] 07:48:00 Test Item Value Reference Range Comments PHOSPHORUS (BEAKER) (test duyt=683) 2.0 mg/dL 2.3-4.7 [id number] 07:48:00 Test Item Value Reference Range Comments MAGNESIUM (BEAKER) (test gimr=496) 1.7 mg/dL 1.6-2.6 BASIC METABOLIC [id number] 07:48:00 Test Item Value Reference Range Comments SODIUM (BEAKER) (test 142 meq/L 136-145 wxzv=089) POTASSIUM (BEAKER) (test 3.3 meq/L 3.5-5.1 buli=144) CHLORIDE (BEAKER) (test 106 meq/L 98-107 qyzu=079) CO2 (BEAKER) (test 26 meq/L 22-29 bdwe=881) BLOOD UREA NITROGEN 19 mg/dL 7-21 (BEAKER) (test kazf=631) CREATININE (BEAKER) (test 1.97 mg/dL 0.57-1.25 okmx=717) GLUCOSE RANDOM (BEAKER) 113 mg/dL 70-105 (test nlfk=435) CALCIUM (BEAKER) (test 8.1 mg/dL 8.4-10.2 iwqc=512) EGFR (BEAKER) (test 31 mL/min/1.73 sq m ESTIMATED GFR IS NOT urrg=1217) ACCURATE CREATININE CLEARANCE IN PREDICTING GLOMERULAR FILTRATION RATE. ESTIMATED GFR IS NOT APPLICABLE FOR DIALYSIS PATIENTS. HEPATIC FUNCTION [id number] 07:48:00 Test Item Value Reference Range Comments TOTAL PROTEIN (BEAKER) (test mjsu=211) 5.7 gm/dL 6.0-8.3 ALBUMIN (BEAKER) (test ifkh=0612) 3.1 g/dL 3.5-5.0 BILIRUBIN TOTAL (BEAKER) (test vayl=160) 1.3 mg/dL 0.2-1.2 BILIRUBIN DIRECT (BEAKER) (test jskn=343) 0.8 mg/dL 0.1-0.5 ALKALINE PHOSPHATASE (BEAKER) (test rhlx=312) 51 U/L 40-150 AST (SGOT) (BEAKER) (test fwor=708) 30 U/L 5-34 ALT (SGPT) (BEAKER) (test gmoz=317) 15 U/L 6-55 CBC W/PLT COUNT & AUTO [id number] 07:29:00 Test Item Value Reference Range Comments WHITE BLOOD CELL COUNT (BEAKER) (test ncbr=656) 5.5 K/ L 3.5-10.5 RED BLOOD CELL COUNT (BEAKER) (test nzvh=283) 2.97 M/ L 3.93-5.22 HEMOGLOBIN (BEAKER) (test jbrq=769) 9.2 GM/DL 11.2-15.7 HEMATOCRIT (BEAKER) (test mgsy=178) 27.9 % 34.1-44.9 MEAN CORPUSCULAR VOLUME (BEAKER) (test guhq=118) 93.9 fL 79.4-94.8 MEAN CORPUSCULAR HEMOGLOBIN (BEAKER) (test 31.0 pg 25.6-32.2 ksah=520) MEAN CORPUSCULAR HEMOGLOBIN CONC (BEAKER) (test 33.0 GM/DL 32.2-35.5 xfem=619) RED CELL DISTRIBUTION WIDTH (BEAKER) (test 15.9 % 11.7-14.4 pjtr=402) PLATELET COUNT (BEAKER) (test dhuo=163) 177 K/CU MM 150-450 MEAN PLATELET VOLUME (BEAKER) (test sttd=171) 10.0 fL 9.4-12.3 NUCLEATED RED BLOOD CELLS (BEAKER) (test 0 /100 WBC 0-0 izlq=159) NEUTROPHILS RELATIVE PERCENT (BEAKER) (test 78 % falg=410) LYMPHOCYTES RELATIVE PERCENT (BEAKER) (test 18 % upui=664) MONOCYTES RELATIVE PERCENT (BEAKER) (test 2 % paby=485) EOSINOPHILS RELATIVE PERCENT (BEAKER) (test 1 % fxiv=777) BASOPHILS RELATIVE PERCENT (BEAKER) (test 0 % roez=382) NEUTROPHILS ABSOLUTE COUNT (BEAKER) (test 4.29 K/ L 1.56-6.13 mqfz=593) LYMPHOCYTES ABSOLUTE COUNT (BEAKER) (test 1.00 K/ L 1.18-3.74 tyki=357) MONOCYTES ABSOLUTE COUNT (BEAKER) (test 0.11 K/ L 0.24-0.36 nfzh=882) EOSINOPHILS ABSOLUTE COUNT (BEAKER) (test 0.04 K/ L 0.04-0.36 ltoz=586) BASOPHILS ABSOLUTE COUNT (BEAKER) (test 0.02 K/ L 0.01-0.08 txbe=189) IMMATURE GRANULOCYTES-RELATIVE PERCENT (BEAKER) 0 % 0-1 (test zylj=2143) U/S, [id number] 17:56:00Reason for exam:->ascitesFINAL REPORT Ultrasound-guided paracentesis. Clinical History: Ascites Informed consent was obtained from the patient and the risks of the procedure were explained including bleeding, infection, bowel perforation and visceral injury. Sedation: 1% Xylocaine was used as local sedation. Conscious sedation protocol was not utilized as no systemic analgesia was administered. Technique: Using sterile technique, ultrasound guidance and a 5 [place] [employer] coaxial needle, a single pass right lower [...] [place]ort Verified Date/Time: 02/18/2019 17:56:45 Reading Location: [address] Consult Reading Room [facility] METABOLIC [id number] 10:29:00 Test Item Value Reference Range Comments SODIUM (BEAKER) (test 136 meq/L 136-145 bewv=811) POTASSIUM (BEAKER) (test 3.2 meq/L 3.5-5.1 cool=567) CHLORIDE (BEAKER) (test 106 meq/L 98-107 ddfw=649) CO2 (BEAKER) (test 21 meq/L 22-29 zxtt=802) BLOOD UREA NITROGEN 21 mg/dL 7-21 (BEAKER) (test sbue=284) CREATININE (BEAKER) (test 2.30 mg/dL 0.57-1.25 ovox=350) GLUCOSE RANDOM (BEAKER) 100 mg/dL 70-105 (test yfdf=567) CALCIUM (BEAKER) (test 7.9 mg/dL 8.4-10.2 xrch=435) EGFR (BEAKER) (test 26 mL/min/1.73 sq m ESTIMATED GFR IS NOT ooii=8571) ACCURATE CREATININE CLEARANCE IN PREDICTING GLOMERULAR FILTRATION RATE. ESTIMATED GFR IS NOT APPLICABLE FOR DIALYSIS PATIENTS. [id number] 10:16:00 Test Item Value Reference Range Comments PHOSPHORUS (BEAKER) (test uupc=862) 1.9 mg/dL 2.3-4.7 [id number] 10:16:00 Test Item Value Reference Range Comments MAGNESIUM (BEAKER) (test lmps=015) 2.0 mg/dL 1.6-2.6 HEPATIC FUNCTION [id number] 10:16:00 Test Item Value Reference Range Comments TOTAL PROTEIN (BEAKER) (test uptg=646) 6.6 gm/dL 6.0-8.3 ALBUMIN (BEAKER) (test zwgu=9264) 3.3 g/dL 3.5-5.0 BILIRUBIN TOTAL (BEAKER) (test ntum=150) 1.2 mg/dL 0.2-1.2 BILIRUBIN DIRECT (BEAKER) (test slid=754) 0.6 mg/dL 0.1-0.5 ALKALINE PHOSPHATASE (BEAKER) (test oayb=930) 51 U/L 40-150 AST (SGOT) (BEAKER) (test zrmc=556) 30 U/L 5-34 ALT (SGPT) (BEAKER) (test sogj=457) 16 U/L 6-55 [id number] 06:55:00 Test Item Value Reference Range Comments PROTIME (BEAKER) (test xmtp=965) 15.1 seconds 11.7-14.7 INR (BEAKER) (test erty=303) 1.2 <=5.9 PARTIAL THROMBOPLASTIN TIME (BEAKER) (test 31.5 seconds 22.5-36.0 lpby=803) RECOMMENDED COUMADIN/WARFARIN INR THERAPY RANGESSTANDARD DOSE: 2.0 - 3.0 Includes: PROPHYLAXIS forvenous thrombosis, systemic embolization; TREATMENT for venous thrombosis and/or pulmonary embolus.HIGH RISK: Target INR is 2.5-3.5 for patients with mechanical heart valves.For paracentesisFor paracentesisCBC W/PLT COUNT & AUTO [id number] 06:51:00 Test Item Value Reference Range Comments WHITE BLOOD CELL COUNT (BEAKER) (test pxdi=274) 6.0 K/ L 3.5-10.5 RED BLOOD CELL COUNT (BEAKER) (test klhm=725) 2.89 M/ L 3.93-5.22 HEMOGLOBIN (BEAKER) (test gbva=009) 8.9 GM/DL 11.2-15.7 HEMATOCRIT (BEAKER) (test vlpm=683) 27.4 % 34.1-44.9 MEAN CORPUSCULAR VOLUME (BEAKER) (test yeej=791) 94.8 fL 79.4-94.8 MEAN CORPUSCULAR HEMOGLOBIN (BEAKER) (test 30.8 pg 25.6-32.2 kaov=417) MEAN CORPUSCULAR HEMOGLOBIN CONC (BEAKER) (test 32.5 GM/DL 32.2-35.5 aser=985) RED CELL DISTRIBUTION WIDTH (BEAKER) (test 16.2 % 11.7-14.4 heak=655) PLATELET COUNT (BEAKER) (test bfyr=271) 161 K/CU MM 150-450 MEAN PLATELET VOLUME (BEAKER) (test khfm=312) 9.8 fL 9.4-12.3 NUCLEATED RED BLOOD CELLS (BEAKER) (test 0 /100 WBC 0-0 vzgt=671) NEUTROPHILS RELATIVE PERCENT (BEAKER) (test 77 % uffe=215) LYMPHOCYTES RELATIVE PERCENT (BEAKER) (test 18 % ceqj=916) MONOCYTES RELATIVE PERCENT (BEAKER) (test 4 % sose=085) EOSINOPHILS RELATIVE PERCENT (BEAKER) (test 1 % baep=095) BASOPHILS RELATIVE PERCENT (BEAKER) (test 0 % qoqs=715) NEUTROPHILS ABSOLUTE COUNT (BEAKER) (test 4.64 K/ L 1.56-6.13 ekce=692) LYMPHOCYTES ABSOLUTE COUNT (BEAKER) (test 1.10 K/ L 1.18-3.74 rtxd=930) MONOCYTES ABSOLUTE COUNT (BEAKER) (test 0.23 K/ L 0.24-0.36 wseb=587) EOSINOPHILS ABSOLUTE COUNT (BEAKER) (test 0.03 K/ L 0.04-0.36 efcu=731) BASOPHILS ABSOLUTE COUNT (BEAKER) (test 0.01 K/ L 0.01-0.08 wgex=128) IMMATURE GRANULOCYTES-RELATIVE PERCENT (BEAKER) 1 % 0-1 (test znai=7176) BASIC METABOLIC [id number] 09:31:00 Test Item Value Reference Range Comments SODIUM (BEAKER) (test 139 meq/L 136-145 pyvh=990) POTASSIUM (BEAKER) (test 3.5 meq/L 3.5-5.1 nfgi=729) CHLORIDE (BEAKER) (test 106 meq/L 98-107 abvi=102) CO2 (BEAKER) (test 23 meq/L 22-29 vdut=907) BLOOD UREA NITROGEN 20 mg/dL 7-21 (BEAKER) (test hygs=482) CREATININE (BEAKER) (test 2.29 mg/dL 0.57-1.25 srzj=438) GLUCOSE RANDOM (BEAKER) 130 mg/dL 70-105 (test vlsb=902) CALCIUM (BEAKER) (test 7.8 mg/dL 8.4-10.2 wxsd=893) EGFR (BEAKER) (test 26 mL/min/1.73 sq m ESTIMATED GFR IS NOT gmso=9328) ACCURATE CREATININE CLEARANCE IN PREDICTING GLOMERULAR FILTRATION RATE. ESTIMATED GFR IS NOT APPLICABLE FOR DIALYSIS PATIENTS. COMPREHENSIVE METABOLIC [id number] 09:31:00 Test Item Value Reference Range Comments TOTAL PROTEIN (BEAKER) 5.9 gm/dL 6.0-8.3 (test xwsm=096) ALBUMIN (BEAKER) (test 3.2 g/dL 3.5-5.0 sgdx=8162) ALKALINE PHOSPHATASE 46 U/L 40-150 (BEAKER) (test tdjc=387) BILIRUBIN TOTAL (BEAKER) 0.8 mg/dL 0.2-1.2 (test glhw=001) SODIUM (BEAKER) (test 139 meq/L 136-145 hlbu=112) POTASSIUM (BEAKER) (test 3.5 meq/L 3.5-5.1 lxbk=251) CHLORIDE (BEAKER) (test 106 meq/L 98-107 ahmd=754) CO2 (BEAKER) (test 23 meq/L 22-29 onwx=436) BLOOD UREA NITROGEN 20 mg/dL 7-21 (BEAKER) (test umgd=657) CREATININE (BEAKER) (test 2.29 mg/dL 0.57-1.25 opax=256) GLUCOSE RANDOM (BEAKER) 130 mg/dL 70-105 (test tamw=475) CALCIUM (BEAKER) (test 7.8 mg/dL 8.4-10.2 scya=835) AST (SGOT) (BEAKER) (test 32 U/L 5-34 lcxw=108) ALT (SGPT) (BEAKER) (test 16 U/L 6-55 iclu=522) EGFR (BEAKER) (test 26 mL/min/1.73 sq m ESTIMATED GFR IS NOT mvgp=4517) ACCURATE CREATININE CLEARANCE IN PREDICTING GLOMERULAR FILTRATION RATE. ESTIMATED GFR IS NOT APPLICABLE FOR DIALYSIS PATIENTS. [id number] 09:30:00 Test Item Value Reference Range Comments PHOSPHORUS (BEAKER) (test fbys=967) 2.5 mg/dL 2.3-4.7 URIC [id number] 09:30:00 Test Item Value Reference Range Comments URIC ACID (BEAKER) (test kxgo=300) 8.7 mg/dL 2.6-7.2 HEPATIC FUNCTION [id number] 09:30:00 Test Item Value Reference Range Comments TOTAL PROTEIN (BEAKER) (test btjy=431) 5.9 gm/dL 6.0-8.3 ALBUMIN (BEAKER) (test ozxs=3674) 3.2 g/dL 3.5-5.0 BILIRUBIN TOTAL (BEAKER) (test xpmg=844) 0.8 mg/dL 0.2-1.2 BILIRUBIN DIRECT (BEAKER) (test xldj=430) 0.5 mg/dL 0.1-0.5 ALKALINE PHOSPHATASE (BEAKER) (test reln=216) 46 U/L 40-150 AST (SGOT) (BEAKER) (test ondr=962) 32 U/L 5-34 ALT (SGPT) (BEAKER) (test msba=161) 16 U/L 6-55 CALCIUM, [id number] 08:41:00 Test Item Value Reference Range Comments CALCIUM IONIZED (BEAKER) (test cumg=985) 0.92 mmol/L 1.12-1.27 PH, BLOOD (BEAKER) (test fwbn=5976) 7.41 [id number] 08:38:00 Test Item Value Reference Range Comments MAGNESIUM (BEAKER) (test mrew=068) 1.8 mg/dL 1.6-2.6 CBC W/PLT COUNT & AUTO [id number] 08:34:00 Test Item Value Reference Range Comments WHITE BLOOD CELL COUNT (BEAKER) (test htzt=154) 6.1 K/ L 3.5-10.5 RED BLOOD CELL COUNT (BEAKER) (test kpct=630) 2.29 M/ L 3.93-5.22 HEMOGLOBIN (BEAKER) (test iowa=370) 7.1 GM/DL 11.2-15.7 HEMATOCRIT (BEAKER) (test mhvg=805) 22.6 % 34.1-44.9 MEAN CORPUSCULAR VOLUME (BEAKER) (test mnrm=396) 98.7 fL 79.4-94.8 MEAN CORPUSCULAR HEMOGLOBIN (BEAKER) (test 31.0 pg 25.6-32.2 baba=270) MEAN CORPUSCULAR HEMOGLOBIN CONC (BEAKER) (test 31.4 GM/DL 32.2-35.5 elzt=418) RED CELL DISTRIBUTION WIDTH (BEAKER) (test 13.9 % 11.7-14.4 ntes=585) PLATELET COUNT (BEAKER) (test yoxt=477) 193 K/CU MM 150-450 MEAN PLATELET VOLUME (BEAKER) (test zeac=151) 9.0 fL 9.4-12.3 NUCLEATED RED BLOOD CELLS (BEAKER) (test 0 /100 WBC 0-0 rltc=296) NEUTROPHILS RELATIVE PERCENT (BEAKER) (test 80 % cyst=306) LYMPHOCYTES RELATIVE PERCENT (BEAKER) (test 16 % wgpl=687) MONOCYTES RELATIVE PERCENT (BEAKER) (test 4 % ahtg=639) EOSINOPHILS RELATIVE PERCENT (BEAKER) (test 0 % thgn=297) BASOPHILS RELATIVE PERCENT (BEAKER) (test 0 % bbgv=775) NEUTROPHILS ABSOLUTE COUNT (BEAKER) (test 4.88 K/ L 1.56-6.13 lpll=370) LYMPHOCYTES ABSOLUTE COUNT (BEAKER) (test 0.95 K/ L 1.18-3.74 xiut=301) MONOCYTES ABSOLUTE COUNT (BEAKER) (test 0.23 K/ L 0.24-0.36 yluc=920) EOSINOPHILS ABSOLUTE COUNT (BEAKER) (test 0.00 K/ L 0.04-0.36 cyil=321) BASOPHILS ABSOLUTE COUNT (BEAKER) (test 0.01 K/ L 0.01-0.08 msqe=216) IMMATURE GRANULOCYTES-RELATIVE PERCENT (BEAKER) 1 % 0-1 (test mehq=4572) C. DIFFICILE GDH [id number] 19:27:00 Test Item Value Reference Range Comments CDT TOXIN (test Negative Negative xbej=[id number]) CDT GDH ANTIGEN (test Negative Negative No indication of Clostridium akyb=[id number]) difficile infection and no colonization. Discontinue enteric isolation and therapy. Testing performed by [employer] Rapid Cassette Assay. For GDH, published sensitivity of the assay is 98.7% compared to cytotoxicity testing. For Toxin AB, published sensitivity is 87.8% and specificity 99.4% compared to cytotoxicity testing.Verification of kit performance was done by the [facility] Micro[facility] prior to clinical use.CBC W/PLT COUNT & AUTO [id number] 13:33:00 Test Item Value Reference Range Comments WHITE BLOOD CELL COUNT (BEAKER) (test bqme=598) 7.3 K/ L 3.5-10.5 RED BLOOD CELL COUNT (BEAKER) (test rmxo=221) 2.43 M/ L 3.93-5.22 HEMOGLOBIN (BEAKER) (test anda=683) 7.6 GM/DL 11.2-15.7 HEMATOCRIT (BEAKER) (test dpbm=513) 24.4 % 34.1-44.9 MEAN CORPUSCULAR VOLUME (BEAKER) (test nlqq=120) 100.4 fL 79.4-94.8 MEAN CORPUSCULAR HEMOGLOBIN (BEAKER) (test 31.3 pg 25.6-32.2 kwhu=042) MEAN CORPUSCULAR HEMOGLOBIN CONC (BEAKER) (test 31.1 GM/DL 32.2-35.5 nmxz=180) RED CELL DISTRIBUTION WIDTH (BEAKER) (test 14.1 % 11.7-14.4 klzg=810) PLATELET COUNT (BEAKER) (test eslr=284) 214 K/CU MM 150-450 MEAN PLATELET VOLUME (BEAKER) (test eddd=544) 8.7 fL 9.4-12.3 NUCLEATED RED BLOOD CELLS (BEAKER) (test 0 /100 WBC 0-0 kttt=226) (MANUAL DIFFERENTIAL)2019-02-16 13:33:00 Test Item Value Reference Range Comments NEUTROPHILS - REL (DIFF) (BEAKER) (test gjtf=8308) 74 % LYMPHOCYTES - REL (DIFF) (BEAKER) (test asxn=9179) 14 % MONOCYTES - REL (DIFF) (BEAKER) (test envb=3343) 10 % EOSINOPHILS - REL (DIFF) (BEAKER) (test qsaf=3859) 1 % BASOPHILS - REL (DIFF) (BEAKER) (test jabz=0255) 1 % NEUTROPHILS - ABS (DIFF) (BEAKER) (test smck=8753) 5.40 K/ L 1.80-8.00 LYMPHOCYTES - ABS (DIFF) (BEAKER) (test brif=3493) 1.02 K/ L 1.48-4.50 MONOCYTES - ABS (DIFF) (BEAKER) (test ming=1628) 0.73 K/ L 0.00-1.30 EOSINOPHILS - ABS (DIFF) (BEAKER) (test kcyg=1584) 0.07 K/ L 0.00-0.50 BASOPHILS - ABS (DIFF) (BEAKER) (test jotp=2069) 0.07 K/ L 0.00-0.20 TOTAL COUNTED (BEAKER) (test gryc=3756) 100 WBC MORPHOLOGY (BEAKER) (test guqy=779) Normal PLT MORPHOLOGY (BEAKER) (test blqt=012) Normal RBC MORPHOLOGY (BEAKER) (test gpbo=990) Normal CALCIUM, [id number] 08:55:00 Test Item Value Reference Range Comments CALCIUM IONIZED (BEAKER) (test bdog=993) 0.81 mmol/L 1.12-1.27 PH, BLOOD (BEAKER) (test upjs=5969) 7.38 COMPREHENSIVE METABOLIC [id number] 07:16:00 Test Item Value Reference Range Comments TOTAL PROTEIN (BEAKER) 6.3 gm/dL 6.0-8.3 (test pvwb=298) ALBUMIN (BEAKER) (test 3.5 g/dL 3.5-5.0 bzcw=9899) ALKALINE PHOSPHATASE 39 U/L 40-150 (BEAKER) (test kitd=106) BILIRUBIN TOTAL (BEAKER) 1.3 mg/dL 0.2-1.2 (test riuj=690) SODIUM (BEAKER) (test 140 meq/L 136-145 disp=458) POTASSIUM (BEAKER) (test 3.6 meq/L 3.5-5.1 nsvv=838) CHLORIDE (BEAKER) (test 109 meq/L 98-107 oemq=109) CO2 (BEAKER) (test 19 meq/L 22-29 myzk=411) BLOOD UREA NITROGEN 16 mg/dL 7-21 (BEAKER) (test skhs=060) CREATININE (BEAKER) (test 2.52 mg/dL 0.57-1.25 mnfn=920) GLUCOSE RANDOM (BEAKER) 116 mg/dL 70-105 (test lxnc=294) CALCIUM (BEAKER) (test 8.4 mg/dL 8.4-10.2 adqf=815) AST (SGOT) (BEAKER) (test 25 U/L 5-34 xiyu=440) ALT (SGPT) (BEAKER) (test 13 U/L 6-55 seuw=156) EGFR (BEAKER) (test 23 mL/min/1.73 sq m ESTIMATED GFR IS NOT btvn=1480) ACCURATE CREATININE CLEARANCE IN PREDICTING GLOMERULAR FILTRATION RATE. ESTIMATED GFR IS NOT APPLICABLE FOR DIALYSIS PATIENTS. BASIC METABOLIC [id number] 07:15:00 Test Item Value Reference Range Comments SODIUM (BEAKER) (test 140 meq/L 136-145 nmnk=451) POTASSIUM (BEAKER) (test 3.6 meq/L 3.5-5.1 qdgq=806) CHLORIDE (BEAKER) (test 109 meq/L 98-107 ilbr=038) CO2 (BEAKER) (test 19 meq/L 22-29 ckgb=362) BLOOD UREA NITROGEN 16 mg/dL 7-21 (BEAKER) (test rpxo=921) CREATININE (BEAKER) (test 2.52 mg/dL 0.57-1.25 pgep=856) GLUCOSE RANDOM (BEAKER) 116 mg/dL 70-105 (test ppvu=266) CALCIUM (BEAKER) (test 8.4 mg/dL 8.4-10.2 hnyn=655) EGFR (BEAKER) (test 23 mL/min/1.73 sq m ESTIMATED GFR IS NOT dnsr=0708) ACCURATE CREATININE CLEARANCE IN PREDICTING GLOMERULAR FILTRATION RATE. ESTIMATED GFR IS NOT APPLICABLE FOR DIALYSIS PATIENTS. [id number] 07:10:00 Test Item Value Reference Range Comments PHOSPHORUS (BEAKER) (test chdn=981) 1.9 mg/dL 2.3-4.7 [id number] 07:10:00 Test Item Value Reference Range Comments MAGNESIUM (BEAKER) (test gkkg=546) 1.9 mg/dL 1.6-2.6 HEPATIC FUNCTION [id number] 07:10:00 Test Item Value Reference Range Comments TOTAL PROTEIN (BEAKER) (test uuun=936) 6.3 gm/dL 6.0-8.3 ALBUMIN (BEAKER) (test ajpe=2991) 3.5 g/dL 3.5-5.0 BILIRUBIN TOTAL (BEAKER) (test rzah=380) 1.3 mg/dL 0.2-1.2 BILIRUBIN DIRECT (BEAKER) (test jpij=480) 0.8 mg/dL 0.1-0.5 ALKALINE PHOSPHATASE (BEAKER) (test obvw=094) 39 U/L 40-150 AST (SGOT) (BEAKER) (test jkav=884) 25 U/L 5-34 ALT (SGPT) (BEAKER) (test reqi=764) 13 U/L 6-55 RAD, CHEST, 1 VIEW, NON [id number] 21:33:00Reason for exam:->PICC LINE TIP VERIFICATIONShould this [...] MDReport Verified Date/Time: 02/15 21:33:22 Reading Location: [address] Reading Room CBC W/PLT COUNT & AUTO [id number] 11:37:00 Test Item Value Reference Range Comments WHITE BLOOD CELL COUNT (BEAKER) (test avvx=334) 7.1 K/ L 3.5-10.5 RED BLOOD CELL COUNT (BEAKER) (test szzl=362) 2.43 M/ L 3.93-5.22 HEMOGLOBIN (BEAKER) (test ivya=345) 7.7 GM/DL 11.2-15.7 HEMATOCRIT (BEAKER) (test nrwz=624) 24.3 % 34.1-44.9 MEAN CORPUSCULAR VOLUME (BEAKER) (test qxox=611) 100.0 fL 79.4-94.8 MEAN CORPUSCULAR HEMOGLOBIN (BEAKER) (test 31.7 pg 25.6-32.2 rqri=521) MEAN CORPUSCULAR HEMOGLOBIN CONC (BEAKER) (test 31.7 GM/DL 32.2-35.5 lcrg=247) RED CELL DISTRIBUTION WIDTH (BEAKER) (test 13.8 % 11.7-14.4 lcqd=026) PLATELET COUNT (BEAKER) (test cptd=542) 216 K/CU MM 150-450 MEAN PLATELET VOLUME (BEAKER) (test nasv=027) 8.8 fL 9.4-12.3 NUCLEATED RED BLOOD CELLS (BEAKER) (test 0 /100 WBC 0-0 aiqn=682) (CELLAVISION MANUAL DIFF)2019-02-15 11:37:00 Test Item Value Reference Range Comments NEUTROPHILS - REL (CELLAVISION)(BEAKER) (test 75 % flai=1085) LYMPHOCYTES - REL (CELLAVISION)(BEAKER) (test 20 % ihnk=8641) MONOCYTES - REL (CELLAVISION)(BEAKER) (test 4 % tsmn=3854) ATYPICAL LYMPHOCYTES - REL (CELLAVISION)(BEAKER) 1 % 0-0 (test okok=3669) NEUTROPHILS - ABS (CELLAVISION)(BEAKER) (test 5.33 K/ul 1.56-6.13 cjvv=3210) LYMPHOCYTES - ABS (CELLAVISION)(BEAKER) (test 1.42 K/ul 1.18-3.74 yyms=2631) MONOCYTES - ABS (CELLAVISION)(BEAKER) (test 0.28 K/uL 0.24-0.36 vqrc=7215) ATYPICAL LYMPHOCYTES - ABS (CELLAVISION)(BEAKER) 0.07 K/uL 0.00-0.00 (test ivtc=2407) TOTAL COUNTED (BEAKER) (test owys=1319) 100 WBC MORPHOLOGY (BEAKER) (test vwwy=668) Normal LARGE PLT(BEAKER) (test royn=4303) Present POLYCHROMATOPHILLIC RBCS(BEAKER) (test ukmc=611) 1+ few HYPOCHROMIA (BEAKER) (test nkea=718) 1+ few ARTIFACT (CELLAVISION)(BEAKER) (test izsg=6880) Present PLATELET CONCENTRATION (CELLAVISION)(BEAKER) (test Adequate qrqc=4816) Received comment: User comments: Slide comments:CREATININE, RANDOM [id number] 08:13:00 Test Item Value Reference Range Comments CREATININE URINE (BEAKER) (test rpvu=858) 166.6 mg/dL Reference Range: No NormalsPROTEIN, RANDOM [id number] 07:32:00 Test Item Value Reference Range Comments PROTEIN, URINE (BEAKER) (test srtc=9568) 58 mg/dL 0-14 CALCIUM, [id number] 07:05:00 Test Item Value Reference Range Comments CALCIUM IONIZED (BEAKER) (test yhom=172) 0.72 mmol/L 1.12-1.27 PH, BLOOD (BEAKER) (test inpr=5458) 7.50 CBC W/PLT COUNT & AUTO [id number] 06:47:00 Test Item Value Reference Range Comments WHITE BLOOD CELL COUNT (BEAKER) (test aiqc=715) 7.2 K/ L 3.5-10.5 RED BLOOD CELL COUNT (BEAKER) (test hsfd=091) 2.42 M/ L 3.93-5.22 HEMOGLOBIN (BEAKER) (test bwrl=813) 7.5 GM/DL 11.2-15.7 HEMATOCRIT (BEAKER) (test wfwm=787) 24.2 % 34.1-44.9 MEAN CORPUSCULAR VOLUME (BEAKER) (test grbf=730) 100.0 fL 79.4-94.8 MEAN CORPUSCULAR HEMOGLOBIN (BEAKER) (test 31.0 pg 25.6-32.2 kgjh=395) MEAN CORPUSCULAR HEMOGLOBIN CONC (BEAKER) (test 31.0 GM/DL 32.2-35.5 ckfk=753) RED CELL DISTRIBUTION WIDTH (BEAKER) (test 14.0 % 11.7-14.4 gyjr=772) PLATELET COUNT (BEAKER) (test zqne=813) 220 K/CU MM 150-450 MEAN PLATELET VOLUME (BEAKER) (test zpeb=011) 8.5 fL 9.4-12.3 NUCLEATED RED BLOOD CELLS (BEAKER) (test 0 /100 WBC 0-0 gdmg=576) NEUTROPHILS RELATIVE PERCENT (BEAKER) (test 69 % gewm=227) LYMPHOCYTES RELATIVE PERCENT (BEAKER) (test 22 % xsfh=819) MONOCYTES RELATIVE PERCENT (BEAKER) (test 7 % rwfa=429) EOSINOPHILS RELATIVE PERCENT (BEAKER) (test 1 % gqgb=977) BASOPHILS RELATIVE PERCENT (BEAKER) (test 1 % evvy=794) NEUTROPHILS ABSOLUTE COUNT (BEAKER) (test 4.98 K/ L 1.56-6.13 mvpr=895) LYMPHOCYTES ABSOLUTE COUNT (BEAKER) (test 1.60 K/ L 1.18-3.74 fsqq=102) MONOCYTES ABSOLUTE COUNT (BEAKER) (test 0.53 K/ L 0.24-0.36 bemg=222) EOSINOPHILS ABSOLUTE COUNT (BEAKER) (test 0.04 K/ L 0.04-0.36 pxih=390) BASOPHILS ABSOLUTE COUNT (BEAKER) (test 0.04 K/ L 0.01-0.08 jnpj=746) IMMATURE GRANULOCYTES-RELATIVE PERCENT (BEAKER) 0 % 0-1 (test snpx=2454) COMPREHENSIVE METABOLIC [id number] 06:39:00 Test Item Value Reference Range Comments TOTAL PROTEIN (BEAKER) 6.4 gm/dL 6.0-8.3 (test zyon=012) ALBUMIN (BEAKER) (test 3.6 g/dL 3.5-5.0 soug=7904) ALKALINE PHOSPHATASE 32 U/L 40-150 (BEAKER) (test vygk=287) BILIRUBIN TOTAL (BEAKER) 1.4 mg/dL 0.2-1.2 (test lers=342) SODIUM (BEAKER) (test 140 meq/L 136-145 lsaq=119) POTASSIUM (BEAKER) (test 3.8 meq/L 3.5-5.1 mcfu=173) CHLORIDE (BEAKER) (test 110 meq/L 98-107 xuwl=561) CO2 (BEAKER) (test 19 meq/L 22-29 oomn=652) BLOOD UREA NITROGEN 15 mg/dL 7-21 (BEAKER) (test pjin=398) CREATININE (BEAKER) (test 2.30 mg/dL 0.57-1.25 biui=797) GLUCOSE RANDOM (BEAKER) 102 mg/dL 70-105 (test quvl=554) CALCIUM (BEAKER) (test 8.0 mg/dL 8.4-10.2 mpxe=158) AST (SGOT) (BEAKER) (test 17 U/L 5-34 qqav=535) ALT (SGPT) (BEAKER) (test 9 U/L 6-55 iodv=855) EGFR (BEAKER) (test 26 mL/min/1.73 sq m ESTIMATED GFR IS NOT lfas=9624) ACCURATE CREATININE CLEARANCE IN PREDICTING GLOMERULAR FILTRATION RATE. ESTIMATED GFR IS NOT APPLICABLE FOR DIALYSIS PATIENTS. HEPATIC FUNCTION [id number] 06:23:00 Test Item Value Reference Range Comments TOTAL PROTEIN (BEAKER) (test turi=609) 6.4 gm/dL 6.0-8.3 ALBUMIN (BEAKER) (test sagg=1393) 3.6 g/dL 3.5-5.0 BILIRUBIN TOTAL (BEAKER) (test bfrq=994) 1.3 mg/dL 0.2-1.2 BILIRUBIN DIRECT (BEAKER) (test eadg=093) 0.7 mg/dL 0.1-0.5 ALKALINE PHOSPHATASE (BEAKER) (test hmfq=463) 34 U/L 40-150 AST (SGOT) (BEAKER) (test anad=161) 19 U/L 5-34 ALT (SGPT) (BEAKER) (test xdxq=345) 8 U/L 6-55 [id number] 06:22:00 Test Item Value Reference Range Comments PHOSPHORUS (BEAKER) (test velv=333) 2.3 mg/dL 2.3-4.7 [id number] 06:22:00 Test Item Value Reference Range Comments MAGNESIUM (BEAKER) (test wqoi=940) 2.2 mg/dL 1.6-2.6 HEPATIC FUNCTION [id number] 06:22:00 Test Item Value Reference Range Comments TOTAL PROTEIN (BEAKER) (test runl=115) 6.4 gm/dL 6.0-8.3 ALBUMIN (BEAKER) (test nkcf=3424) 3.6 g/dL 3.5-5.0 BILIRUBIN TOTAL (BEAKER) (test hdnp=105) 1.4 mg/dL 0.2-1.2 BILIRUBIN DIRECT (BEAKER) (test rmii=402) 0.7 mg/dL 0.1-0.5 ALKALINE PHOSPHATASE (BEAKER) (test jsiz=372) 32 U/L 40-150 AST (SGOT) (BEAKER) (test cujl=742) 17 U/L 5-34 ALT (SGPT) (BEAKER) (test qike=814) 9 U/L 6-55 BLOOD [id number] 20:01:00 Test Item Value Reference Range Comments CULTURE (BEAKER) (test iars=1388) No growth in 5 days HEMOGLOBIN AND [id number] 13:02:00 Test Item Value Reference Range Comments HEMOGLOBIN (BEAKER) (test jlth=658) 8.1 GM/DL 11.2-15.7 HEMATOCRIT (BEAKER) (test kdph=106) 25.7 % 34.1-44.9 ANTI-MITOCHONDRIAL AB, REFLEX TO [id number] 12:19:00 Test Item Value Reference Range Comments SCAN RESULT (test zvyl=[id number]) [id number] 07:43:00 Test Item Value Reference Range Comments PHOSPHORUS (BEAKER) (test ekdl=264) 1.3 mg/dL 2.3-4.7 CALCIUM, [id number] 06:25:00 Test Item Value Reference Range Comments CALCIUM IONIZED (BEAKER) (test fwaw=111) 1.05 mmol/L 1.12-1.27 PH, BLOOD (BEAKER) (test nbdc=1679) 7.44 COMPREHENSIVE METABOLIC [id number] 06:24:00 Test Item Value Reference Range Comments TOTAL PROTEIN (BEAKER) 6.3 gm/dL 6.0-8.3 (test tdhi=609) ALBUMIN (BEAKER) (test 3.8 g/dL 3.5-5.0 xrjq=0086) ALKALINE PHOSPHATASE 31 U/L 40-150 (BEAKER) (test uwrz=945) BILIRUBIN TOTAL (BEAKER) 1.3 mg/dL 0.2-1.2 (test vpcq=745) SODIUM (BEAKER) (test 141 meq/L 136-145 kybu=098) POTASSIUM (BEAKER) (test 3.5 meq/L 3.5-5.1 xhbi=506) CHLORIDE (BEAKER) (test 110 meq/L 98-107 mgtu=635) CO2 (BEAKER) (test 22 meq/L 22-29 hnyc=406) BLOOD UREA NITROGEN 13 mg/dL 7-21 (BEAKER) (test nbso=837) CREATININE (BEAKER) (test 2.36 mg/dL 0.57-1.25 hkdl=255) GLUCOSE RANDOM (BEAKER) 108 mg/dL 70-105 (test hymv=051) CALCIUM (BEAKER) (test 8.2 mg/dL 8.4-10.2 nrlu=054) AST (SGOT) (BEAKER) (test 14 U/L 5-34 mkbm=488) ALT (SGPT) (BEAKER) (test 6 U/L 6-55 amdn=296) EGFR (BEAKER) (test 25 mL/min/1.73 sq m ESTIMATED GFR IS NOT yqhg=3965) ACCURATE CREATININE CLEARANCE IN PREDICTING GLOMERULAR FILTRATION RATE. ESTIMATED GFR IS NOT APPLICABLE FOR DIALYSIS PATIENTS. [id number] 06:17:00 Test Item Value Reference Range Comments MAGNESIUM (BEAKER) (test fdrm=609) 2.2 mg/dL 1.6-2.6 CBC W/PLT COUNT & AUTO [id number] 05:33:00 Test Item Value Reference Range Comments WHITE BLOOD CELL COUNT (BEAKER) (test jpgn=771) 5.8 K/ L 3.5-10.5 RED BLOOD CELL COUNT (BEAKER) (test btol=234) 2.22 M/ L 3.93-5.22 HEMOGLOBIN (BEAKER) (test cruk=309) 7.0 GM/DL 11.2-15.7 HEMATOCRIT (BEAKER) (test xmcw=947) 22.5 % 34.1-44.9 MEAN CORPUSCULAR VOLUME (BEAKER) (test dzwa=384) 101.4 fL 79.4-94.8 MEAN CORPUSCULAR HEMOGLOBIN (BEAKER) (test 31.5 pg 25.6-32.2 ulnn=969) MEAN CORPUSCULAR HEMOGLOBIN CONC (BEAKER) (test 31.1 GM/DL 32.2-35.5 vnyc=619) RED CELL DISTRIBUTION WIDTH (BEAKER) (test 13.6 % 11.7-14.4 aflf=806) PLATELET COUNT (BEAKER) (test qtnl=302) 169 K/CU MM 150-450 MEAN PLATELET VOLUME (BEAKER) (test nqel=052) 8.5 fL 9.4-12.3 NUCLEATED RED BLOOD CELLS (BEAKER) (test 0 /100 WBC 0-0 ewpw=784) NEUTROPHILS RELATIVE PERCENT (BEAKER) (test 67 % dqku=086) LYMPHOCYTES RELATIVE PERCENT (BEAKER) (test 22 % zcgr=291) MONOCYTES RELATIVE PERCENT (BEAKER) (test 9 % gugu=673) EOSINOPHILS RELATIVE PERCENT (BEAKER) (test 1 % bqiq=294) BASOPHILS RELATIVE PERCENT (BEAKER) (test 1 % xcgw=060) NEUTROPHILS ABSOLUTE COUNT (BEAKER) (test 3.84 K/ L 1.56-6.13 zyag=051) LYMPHOCYTES ABSOLUTE COUNT (BEAKER) (test 1.28 K/ L 1.18-3.74 gjpk=578) MONOCYTES ABSOLUTE COUNT (BEAKER) (test 0.50 K/ L 0.24-0.36 xzjg=194) EOSINOPHILS ABSOLUTE COUNT (BEAKER) (test 0.07 K/ L 0.04-0.36 unnw=617) BASOPHILS ABSOLUTE COUNT (BEAKER) (test 0.06 K/ L 0.01-0.08 ikjp=369) IMMATURE GRANULOCYTES-RELATIVE PERCENT (BEAKER) 0 % 0-1 (test ejbu=4694) RAD, CHEST, 1 VIEW, NON [id number] 12:56:00Reason for exam:->edemaShould this be performed at [...] MDReport Verified Date/Time: 2018 12:56:07 Reading Location: [facility] Mammo Reading Room [id number] 11:09: 00Medical Cytology Report Case: [id number] Authorizing Provider: Charles Jaimes NP Collected : 02/09/2019 1600 Ordering Location: [place] [address] ICU Received: 02/10/2019 0805 Pathologist: Ayesha Vance MD Specimen: Peritoneal Fluid PERITONEAL FLUID (CYTOSPINS AND CELL BLOCK): - SCATTERED ATYPICAL CELLS, COMPATIBLE WITH METASTATIC ADENOCARCINOMA (SEE COMMENT) Signing Pathologist Direct Phone Line: [phone] signed by Ayesha Vance MD on 02/13/2019 at 11:09 AMThe patient has a recent sample of peritoneal fluid ([id number]) with metastatic adenocarcinoma. In the current sample , atypical cells with similar features are seen.Please see the prior sample ([id number] -834) for additional evaluation and information. 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 02/03/19(see [id number] )PERITONEAL [id number] mls yellow; 4 cytospins, cell blockCollected: [id number]: [id number] [facility], Department of Pathology, [address] [place] [address], [facility], [facility], [address] [place] [address], [facility], [facility], [address] [place] [address], b-TYPE NATRIURETIC FACTOR (BNP)2019-02-13 10:48:00 Test Item Value Reference Range Comments B-TYPE NATRIURETIC PEPTIDE (BEAKER) (test 107 pg/mL 0-100 pdgu=755) COMPREHENSIVE METABOLIC [id number] 10:41:00 Test Item Value Reference Range Comments TOTAL PROTEIN (BEAKER) 6.8 gm/dL 6.0-8.3 (test oadq=082) ALBUMIN (BEAKER) (test 4.2 g/dL 3.5-5.0 mawt=5594) ALKALINE PHOSPHATASE 35 U/L 40-150 (BEAKER) (test ixci=242) BILIRUBIN TOTAL (BEAKER) 1.3 mg/dL 0.2-1.2 (test lelj=695) SODIUM (BEAKER) (test 143 meq/L 136-145 occd=669) POTASSIUM (BEAKER) (test 3.3 meq/L 3.5-5.1 jgql=335) CHLORIDE (BEAKER) (test 111 meq/L 98-107 dzhi=296) CO2 (BEAKER) (test 20 meq/L 22-29 ggnm=817) BLOOD UREA NITROGEN 12 mg/dL 7-21 (BEAKER) (test jyzp=967) CREATININE (BEAKER) (test 2.68 mg/dL 0.57-1.25 wuzu=108) GLUCOSE RANDOM (BEAKER) 97 mg/dL 70-105 (test ejxw=979) CALCIUM (BEAKER) (test 8.6 mg/dL 8.4-10.2 omoh=555) AST (SGOT) (BEAKER) (test 13 U/L 5-34 muph=551) ALT (SGPT) (BEAKER) (test 6 U/L 6-55 eogc=384) EGFR (BEAKER) (test 22 mL/min/1.73 sq m ESTIMATED GFR IS NOT qxoe=8581) ACCURATE CREATININE CLEARANCE IN PREDICTING GLOMERULAR FILTRATION RATE. ESTIMATED GFR IS NOT APPLICABLE FOR DIALYSIS PATIENTS. BASIC METABOLIC [id number] 10:41:00 Test Item Value Reference Range Comments SODIUM (BEAKER) (test 143 meq/L 136-145 ailr=625) POTASSIUM (BEAKER) (test 3.3 meq/L 3.5-5.1 jbwe=729) CHLORIDE (BEAKER) (test 111 meq/L 98-107 ezxd=393) CO2 (BEAKER) (test 20 meq/L 22-29 qkax=357) BLOOD UREA NITROGEN 12 mg/dL 7-21 (BEAKER) (test znut=304) CREATININE (BEAKER) (test 2.68 mg/dL 0.57-1.25 fitx=107) GLUCOSE RANDOM (BEAKER) 97 mg/dL 70-105 (test csjx=924) CALCIUM (BEAKER) (test 8.6 mg/dL 8.4-10.2 zidj=128) EGFR (BEAKER) (test 22 mL/min/1.73 sq m ESTIMATED GFR IS NOT mbtn=3324) ACCURATE CREATININE CLEARANCE IN PREDICTING GLOMERULAR FILTRATION RATE. ESTIMATED GFR IS NOT APPLICABLE FOR DIALYSIS PATIENTS. CBC W/PLT COUNT & AUTO [id number] 10:37:00 Test Item Value Reference Range Comments WHITE BLOOD CELL COUNT (BEAKER) (test oidi=280) 6.0 K/ L 3.5-10.5 RED BLOOD CELL COUNT (BEAKER) (test jpsi=708) 2.33 M/ L 3.93-5.22 HEMOGLOBIN (BEAKER) (test itgy=000) 7.6 GM/DL 11.2-15.7 HEMATOCRIT (BEAKER) (test lato=589) 23.2 % 34.1-44.9 MEAN CORPUSCULAR VOLUME (BEAKER) (test tmdh=672) 99.6 fL 79.4-94.8 MEAN CORPUSCULAR HEMOGLOBIN (BEAKER) (test 32.6 pg 25.6-32.2 ueiq=995) MEAN CORPUSCULAR HEMOGLOBIN CONC (BEAKER) (test 32.8 GM/DL 32.2-35.5 pfhz=200) RED CELL DISTRIBUTION WIDTH (BEAKER) (test 13.6 % 11.7-14.4 mhwp=711) PLATELET COUNT (BEAKER) (test fcxs=951) 210 K/CU MM 150-450 MEAN PLATELET VOLUME (BEAKER) (test wekg=903) 8.9 fL 9.4-12.3 NUCLEATED RED BLOOD CELLS (BEAKER) (test 0 /100 WBC 0-0 ifwc=334) NEUTROPHILS RELATIVE PERCENT (BEAKER) (test 69 % pcvv=527) LYMPHOCYTES RELATIVE PERCENT (BEAKER) (test 23 % tkva=274) MONOCYTES RELATIVE PERCENT (BEAKER) (test 6 % xoab=125) EOSINOPHILS RELATIVE PERCENT (BEAKER) (test 1 % kqma=415) BASOPHILS RELATIVE PERCENT (BEAKER) (test 1 % nfxc=210) NEUTROPHILS ABSOLUTE COUNT (BEAKER) (test 4.14 K/ L 1.56-6.13 yjfz=317) LYMPHOCYTES ABSOLUTE COUNT (BEAKER) (test 1.38 K/ L 1.18-3.74 aops=784) MONOCYTES ABSOLUTE COUNT (BEAKER) (test 0.35 K/ L 0.24-0.36 tcaw=703) EOSINOPHILS ABSOLUTE COUNT (BEAKER) (test 0.06 K/ L 0.04-0.36 ottd=533) BASOPHILS ABSOLUTE COUNT (BEAKER) (test 0.05 K/ L 0.01-0.08 leri=779) IMMATURE GRANULOCYTES-RELATIVE PERCENT (BEAKER) 0 % 0-1 (test wzee=6862) [id number] 10:34:00 Test Item Value Reference Range Comments PHOSPHORUS (BEAKER) (test ckwq=039) 1.8 mg/dL 2.3-4.7 [id number] 10:34:00 Test Item Value Reference Range Comments MAGNESIUM (BEAKER) (test ypsc=383) 2.4 mg/dL 1.6-2.6 HEPATIC FUNCTION [id number] 10:34:00 Test Item Value Reference Range Comments TOTAL PROTEIN (BEAKER) (test hkse=089) 6.8 gm/dL 6.0-8.3 ALBUMIN (BEAKER) (test gkik=7268) 4.2 g/dL 3.5-5.0 BILIRUBIN TOTAL (BEAKER) (test ckwr=971) 1.3 mg/dL 0.2-1.2 BILIRUBIN DIRECT (BEAKER) (test tgke=676) 0.7 mg/dL 0.1-0.5 ALKALINE PHOSPHATASE (BEAKER) (test yxfg=227) 35 U/L 40-150 AST (SGOT) (BEAKER) (test otdk=647) 13 U/L 5-34 ALT (SGPT) (BEAKER) (test jtff=567) 6 U/L 6-55 CREATINE KINASE (CK)2019-02-13 10:34:00 Test Item Value Reference Range Comments CREATINE KINASE TOTAL (BEAKER) (test kgqd=767) 37 U/L 29-200 ANTI-NUCLEAR ANTIBODY (CARROL)2019-02-13 10:25:00 Test Item Value Reference Range Comments ANTI-NUCLEAR ANTIBODY (CARROL) (BEAKER) (test Positive Negative sjox=358) Test performed by IFA method.CARROL TITER AND [id number] 10:25:00 Test Item Value Reference Range Comments CARROL TITER (BEAKER) (test myad=2940) :160 CARROL PATTERN (BEAKER) (test qnyv=3745) Homogeneous CALCIUM, [id number] 10:17:00 Test Item Value Reference Range Comments CALCIUM IONIZED (BEAKER) (test pxfv=436) 1.03 mmol/L 1.12-1.27 PH, BLOOD (BEAKER) (test sxjq=9640) 7.51 BODY FLUID CULTURE + GRAM [id number] 12:36:00 Test Item Value Reference Range Comments CULTURE (BEAKER) (test clcd=2099) No growth GRAM STAIN RESULT (BEAKER) (test <1+ White blood cells seen ldrx=8057) GRAM STAIN RESULT (BEAKER) (test No organisms seen pvjr=10832) [id number] 09:07:00 Test Item Value Reference Range Comments PHOSPHORUS (BEAKER) (test bvns=519) 2.2 mg/dL 2.3-4.7 [id number] 09:07:00 Test Item Value Reference Range Comments MAGNESIUM (BEAKER) (test pzsd=651) 2.4 mg/dL 1.6-2.6 COMPREHENSIVE METABOLIC [id number] 09:07:00 Test Item Value Reference Range Comments TOTAL PROTEIN (BEAKER) 6.2 gm/dL 6.0-8.3 (test rxys=248) ALBUMIN (BEAKER) (test 3.7 g/dL 3.5-5.0 ffhq=0974) ALKALINE PHOSPHATASE 27 U/L 40-150 (BEAKER) (test cmcl=244) BILIRUBIN TOTAL (BEAKER) 0.8 mg/dL 0.2-1.2 (test zttm=184) SODIUM (BEAKER) (test 142 meq/L 136-145 ccdv=369) POTASSIUM (BEAKER) (test 3.4 meq/L 3.5-5.1 siaa=419) CHLORIDE (BEAKER) (test 111 meq/L 98-107 hueh=316) CO2 (BEAKER) (test 20 meq/L 22-29 btwa=772) BLOOD UREA NITROGEN 10 mg/dL 7-21 (BEAKER) (test rvye=207) CREATININE (BEAKER) (test 2.89 mg/dL 0.57-1.25 wbgg=670) GLUCOSE RANDOM (BEAKER) 98 mg/dL 70-105 (test pldv=403) CALCIUM (BEAKER) (test 8.5 mg/dL 8.4-10.2 lpdq=272) AST (SGOT) (BEAKER) (test 14 U/L 5-34 jwdd=930) ALT (SGPT) (BEAKER) (test 6 U/L 6-55 bunr=632) EGFR (BEAKER) (test 20 mL/min/1.73 sq m ESTIMATED GFR IS NOT sjin=8467) ACCURATE CREATININE CLEARANCE IN PREDICTING GLOMERULAR FILTRATION RATE. ESTIMATED GFR IS NOT APPLICABLE FOR DIALYSIS PATIENTS. CALCIUM, [id number] 07:28:00 Test Item Value Reference Range Comments CALCIUM IONIZED (BEAKER) (test oums=755) 1.02 mmol/L 1.12-1.27 PH, BLOOD (BEAKER) (test pnpa=2335) 7.46 CBC W/PLT COUNT & AUTO [id number] 06:55:00 Test Item Value Reference Range Comments WHITE BLOOD CELL COUNT (BEAKER) (test hllq=018) 5.8 K/ L 3.5-10.5 RED BLOOD CELL COUNT (BEAKER) (test awxe=389) 2.33 M/ L 3.93-5.22 HEMOGLOBIN (BEAKER) (test yadk=893) 7.5 GM/DL 11.2-15.7 HEMATOCRIT (BEAKER) (test bvht=116) 23.5 % 34.1-44.9 MEAN CORPUSCULAR VOLUME (BEAKER) (test nyow=511) 100.9 fL 79.4-94.8 MEAN CORPUSCULAR HEMOGLOBIN (BEAKER) (test 32.2 pg 25.6-32.2 lzkn=195) MEAN CORPUSCULAR HEMOGLOBIN CONC (BEAKER) (test 31.9 GM/DL 32.2-35.5 wnpq=283) RED CELL DISTRIBUTION WIDTH (BEAKER) (test 13.7 % 11.7-14.4 ovhl=702) PLATELET COUNT (BEAKER) (test jupc=536) 183 K/CU MM 150-450 MEAN PLATELET VOLUME (BEAKER) (test atgz=339) 8.3 fL 9.4-12.3 NUCLEATED RED BLOOD CELLS (BEAKER) (test 0 /100 WBC 0-0 rgrb=573) NEUTROPHILS RELATIVE PERCENT (BEAKER) (test 71 % clls=702) LYMPHOCYTES RELATIVE PERCENT (BEAKER) (test 21 % thod=865) MONOCYTES RELATIVE PERCENT (BEAKER) (test 6 % ywet=078) EOSINOPHILS RELATIVE PERCENT (BEAKER) (test 2 % wqep=233) BASOPHILS RELATIVE PERCENT (BEAKER) (test 1 % pbke=170) NEUTROPHILS ABSOLUTE COUNT (BEAKER) (test 4.13 K/ L 1.56-6.13 lnpv=596) LYMPHOCYTES ABSOLUTE COUNT (BEAKER) (test 1.20 K/ L 1.18-3.74 sisf=580) MONOCYTES ABSOLUTE COUNT (BEAKER) (test 0.34 K/ L 0.24-0.36 jnbs=315) EOSINOPHILS ABSOLUTE COUNT (BEAKER) (test 0.09 K/ L 0.04-0.36 rgit=986) BASOPHILS ABSOLUTE COUNT (BEAKER) (test 0.05 K/ L 0.01-0.08 iwsj=172) IMMATURE GRANULOCYTES-RELATIVE PERCENT (BEAKER) 0 % 0-1 (test jtpy=6173) B-TYPE NATRIURETIC FACTOR (BNP)2019-02-11 17:28:00 Test Item Value Reference Range Comments B-TYPE NATRIURETIC PEPTIDE (BEAKER) (test fzum=746) 61 pg/mL 0-100 CBC W/PLT COUNT & AUTO [id number] 17:10:00 Test Item Value Reference Range Comments WHITE BLOOD CELL COUNT (BEAKER) (test wqyi=606) 5.8 K/ L 3.5-10.5 RED BLOOD CELL COUNT (BEAKER) (test vauc=303) 2.27 M/ L 3.93-5.22 HEMOGLOBIN (BEAKER) (test zrzm=666) 7.3 GM/DL 11.2-15.7 HEMATOCRIT (BEAKER) (test xrnp=593) 23.4 % 34.1-44.9 MEAN CORPUSCULAR VOLUME (BEAKER) (test jzop=248) 103.1 fL 79.4-94.8 MEAN CORPUSCULAR HEMOGLOBIN (BEAKER) (test 32.2 pg 25.6-32.2 lram=358) MEAN CORPUSCULAR HEMOGLOBIN CONC (BEAKER) (test 31.2 GM/DL 32.2-35.5 ifaw=942) RED CELL DISTRIBUTION WIDTH (BEAKER) (test 14.0 % 11.7-14.4 kgin=894) PLATELET COUNT (BEAKER) (test ukaq=423) 204 K/CU MM 150-450 MEAN PLATELET VOLUME (BEAKER) (test oljh=583) 9.8 fL 9.4-12.3 NUCLEATED RED BLOOD CELLS (BEAKER) (test 0 /100 WBC 0-0 xttk=687) NEUTROPHILS RELATIVE PERCENT (BEAKER) (test 69 % qrbo=395) LYMPHOCYTES RELATIVE PERCENT (BEAKER) (test 21 % have=496) MONOCYTES RELATIVE PERCENT (BEAKER) (test 6 % vhlr=135) EOSINOPHILS RELATIVE PERCENT (BEAKER) (test 2 % wkwy=844) BASOPHILS RELATIVE PERCENT (BEAKER) (test 1 % xkay=151) NEUTROPHILS ABSOLUTE COUNT (BEAKER) (test 4.04 K/ L 1.56-6.13 amwm=440) LYMPHOCYTES ABSOLUTE COUNT (BEAKER) (test 1.24 K/ L 1.18-3.74 sqtx=861) MONOCYTES ABSOLUTE COUNT (BEAKER) (test 0.36 K/ L 0.24-0.36 rkrl=307) EOSINOPHILS ABSOLUTE COUNT (BEAKER) (test 0.11 K/ L 0.04-0.36 blou=746) BASOPHILS ABSOLUTE COUNT (BEAKER) (test 0.05 K/ L 0.01-0.08 ypmz=109) IMMATURE GRANULOCYTES-RELATIVE PERCENT (BEAKER) 1 % 0-1 (test ogta=0273) CT, [id number] 16:19:00FINAL REPORT TECHNIQUE: CT of the abdomen [...] Verified Date/Time: 02/11/2019 16: 19:52 Reading Location: [facility] [address] CT Body Reading Room [facility] METABOLIC [id number] 05:02:00 Test Item Value Reference Range Comments SODIUM (BEAKER) (test 142 meq/L 136-145 gntp=545) POTASSIUM (BEAKER) (test 3.7 meq/L 3.5-5.1 cwzu=406) CHLORIDE (BEAKER) (test 113 meq/L 98-107 wagr=579) CO2 (BEAKER) (test 18 meq/L 22-29 zfky=946) BLOOD UREA NITROGEN 13 mg/dL 7-21 (BEAKER) (test tocz=396) CREATININE (BEAKER) (test 2.15 mg/dL 0.57-1.25 emaw=265) GLUCOSE RANDOM (BEAKER) 115 mg/dL 70-105 (test rskn=807) CALCIUM (BEAKER) (test 8.1 mg/dL 8.4-10.2 uddd=158) EGFR (BEAKER) (test 28 mL/min/1.73 sq m ESTIMATED GFR IS NOT gedj=5240) ACCURATE CREATININE CLEARANCE IN PREDICTING GLOMERULAR FILTRATION RATE. ESTIMATED GFR IS NOT APPLICABLE FOR DIALYSIS PATIENTS. HEPATIC FUNCTION [id number] 04:31:00 Test Item Value Reference Range Comments TOTAL PROTEIN (BEAKER) (test ilja=965) 5.9 gm/dL 6.0-8.3 ALBUMIN (BEAKER) (test cnag=5211) 3.0 g/dL 3.5-5.0 BILIRUBIN TOTAL (BEAKER) (test qnym=925) 0.7 mg/dL 0.2-1.2 BILIRUBIN DIRECT (BEAKER) (test xlol=637) 0.4 mg/dL 0.1-0.5 ALKALINE PHOSPHATASE (BEAKER) (test xwwd=208) 34 U/L 40-150 AST (SGOT) (BEAKER) (test yodn=029) 17 U/L 5-34 ALT (SGPT) (BEAKER) (test vcfc=120) 9 U/L 6-55 [id number] 04:30:00 Test Item Value Reference Range Comments PHOSPHORUS (BEAKER) (test nveo=370) 2.5 mg/dL 2.3-4.7 [id number] 04:30:00 Test Item Value Reference Range Comments MAGNESIUM (BEAKER) (test lkuc=637) 1.5 mg/dL 1.6-2.6 CBC W/PLT COUNT & AUTO [id number] 04:04:00 Test Item Value Reference Range Comments WHITE BLOOD CELL COUNT (BEAKER) (test iwus=831) 6.0 K/ L 3.5-10.5 RED BLOOD CELL COUNT (BEAKER) (test qfal=146) 2.64 M/ L 3.93-5.22 HEMOGLOBIN (BEAKER) (test zsdy=977) 8.3 GM/DL 11.2-15.7 HEMATOCRIT (BEAKER) (test xynq=332) 27.7 % 34.1-44.9 MEAN CORPUSCULAR VOLUME (BEAKER) (test mrqi=937) 104.9 fL 79.4-94.8 MEAN CORPUSCULAR HEMOGLOBIN (BEAKER) (test 31.4 pg 25.6-32.2 wwsl=670) MEAN CORPUSCULAR HEMOGLOBIN CONC (BEAKER) (test 30.0 GM/DL 32.2-35.5 ikhk=451) RED CELL DISTRIBUTION WIDTH (BEAKER) (test 14.1 % 11.7-14.4 scwq=677) PLATELET COUNT (BEAKER) (test hplh=036) 198 K/CU MM 150-450 MEAN PLATELET VOLUME (BEAKER) (test fvbb=039) 8.4 fL 9.4-12.3 NUCLEATED RED BLOOD CELLS (BEAKER) (test 0 /100 WBC 0-0 oagn=671) NEUTROPHILS RELATIVE PERCENT (BEAKER) (test 66 % lcwn=522) LYMPHOCYTES RELATIVE PERCENT (BEAKER) (test 25 % ciqv=082) MONOCYTES RELATIVE PERCENT (BEAKER) (test 6 % uoef=872) EOSINOPHILS RELATIVE PERCENT (BEAKER) (test 2 % wbha=342) BASOPHILS RELATIVE PERCENT (BEAKER) (test 1 % zosr=389) NEUTROPHILS ABSOLUTE COUNT (BEAKER) (test 3.90 K/ L 1.56-6.13 vjyh=053) LYMPHOCYTES ABSOLUTE COUNT (BEAKER) (test 1.50 K/ L 1.18-3.74 yqmh=358) MONOCYTES ABSOLUTE COUNT (BEAKER) (test 0.37 K/ L 0.24-0.36 qfrf=014) EOSINOPHILS ABSOLUTE COUNT (BEAKER) (test 0.11 K/ L 0.04-0.36 mufw=510) BASOPHILS ABSOLUTE COUNT (BEAKER) (test 0.05 K/ L 0.01-0.08 xgym=906) IMMATURE GRANULOCYTES-RELATIVE PERCENT (BEAKER) 1 % 0-1 (test zcuf=8656) URINALYSIS W/ REFLEX URINE [id number] 21:08:00 Test Item Value Reference Range Comments COLOR (BEAKER) (test hhzf=343) Yellow CLARITY (BEAKER) (test wsra=231) Hazy SPECIFIC GRAVITY UA (BEAKER) (test yrtq=320) 1.015 1.001-1.035 PH UA (BEAKER) (test mfbq=304) 5.5 5.0-8.0 PROTEIN UA (BEAKER) (test rbat=492) 20 mg/dL Negative GLUCOSE UA (BEAKER) (test twli=876) Negative Negative KETONES UA (BEAKER) (test qdji=704) Trace Negative BILIRUBIN UA (BEAKER) (test oboi=201) Negative Negative BLOOD UA (BEAKER) (test esoj=596) Negative Negative NITRITE UA (BEAKER) (test hasu=522) Negative Negative LEUKOCYTE ESTERASE UA (BEAKER) (test wsem=960) Large Negative UROBILINOGEN UA (BEAKER) (test wdhp=035) 0.2 mg/dL 0.2-1.0 RBC UA (BEAKER) (test mocx=986) 1 /HPF WBC UA (BEAKER) (test hlfx=251) 10 /HPF SQUAMOUS EPITHELIAL (BEAKER) (test kjes=289) 3 /HPF HYALINE CASTS (BEAKER) (test wtha=106) 2 /LPF CRYSTALS, URINE (BEAKER) (test awfv=7690) Rare YEAST (BEAKER) (test voyg=4995) Occasional SOURCE(BEAKER) (test pstl=5994) HEPATITIS B SURFACE [id number] 20:13:00 Test Item Value Reference Range Comments HEPATITIS B SURFACE ANTIBODY (BEAKER) (test < mIU/mL <8.0 jkfw=650) HEPATITIS A ANTIBODY, [id number] 20:13:00 Test Item Value Reference Range Comments HEPATITIS A IGG ANTIBODY (BEAKER) (test vtin=9988) Reactive Nonreactive HEPATITIS B SURFACE [id number] 20:11:00 Test Item Value Reference Range Comments HEPATITIS B SURFACE ANTIGEN (2) (BEAKER) (test Nonreactive Nonreactive otgq=1814) HEPATITIS C [id number] 20:11:00 Test Item Value Reference Range Comments HEPATITIS C ANTIBODY (BEAKER) (test xxuh=791) Nonreactive Nonreactive U/S, ABDOMINAL, WITH [id number] 20:08:00Reason for exam:->evaluation for liver disease, other [...] MDReport Verified Date/Time: 02/09/2019 20:08:48 Reading Location: [facility] C013W Consult Reading Room IMMUNOGLOBULIN G (IGG)2019-02-09 19:45:00 Test Item Value Reference Range Comments IMMUNOGLOBULIN G (IGG) (BEAKER) (test behn=628) 926 mg/dL 540-1,822 [id number] 19:13:00 Test Item Value Reference Range Comments FERRITIN (BEAKER) (test wmov=362) 1896 ng/mL 5-275 BODY FLUID CELL COUNT WITH [id number] 19:01:00 Test Item Value Reference Range Comments APPEARANCE FLUID (BEAKER) (test yuza=041) Slightly Hazy Clear COLOR FLUID (BEAKER) (test lpbf=294) Yellow Colorless, Straw RBC FLUID (BEAKER) (test aiyo=582) 200 /cu mm <=1 ADJUSTED WBC FLUID (BEAKER) (test blcp=4800) 88 /cu mm <=5 LINING CELLS (BEAKER) (test tkrb=6391) 2 /cu mm <=1 NEUTROPHILS FLUID (BEAKER) (test vjik=2105) 1 % LYMPHS FLUID (BEAKER) (test vyza=011) 57 % MONO/MACROPHAGE FLUID (BEAKER) (test 40 % fepk=518) EOSINOPHILS FLUID (BEAKER) (test muoa=087) 2 % BASO FLUID (BEAKER) (test rdhm=163) 0 % CONTAINER BODY FLUID (BEAKER) (test EDTA Tube vslk=7830) IRON, TIBC, % SAT. (WITHOUT FERRITIN)2019-02-09 18:53:00 Test Item Value Reference Range Comments IRON (BEAKER) (test csql=706) 23.0 ug/dL 40.0-160.0 TOTAL IRON BINDING CAPACITY (BEAKER) (test 94 ug/dL 250-450 hzey=552) IRON % SATURATION (2) (BEAKER) (test tngc=5366) 24 % 20-55 GAMMA GLUTAMYL TRANSFERASE (GGT)2019-02-09 18:51:00 Test Item Value Reference Range Comments GAMMA GLUTAMYL TRANSFERASE 21 U/L 9-64 Specimen slightly hemolyzed (BEAKER) (test jmii=308) ALBUMIN, BODY [id number] 18:07:00 Test Item Value Reference Range Comments ALBUMIN FLUID (BEAKER) (test qsdq=248) 2.3 gm/dL Reference Range: No Normals Assay performance has not been validated for this type of specimen.LACTATE DEHYDROGENASE (LDH), BODY [id number] 18:07:00 Test Item Value Reference Range Comments LACTATE DEHYDROGENASE FLUID (BEAKER) (test cncm=301) 288 U/L Absence of reference range indicates that normals have not been defined.Assay performance has not been validated for this type of specimen.RAD, CHEST, 1 VIEW , NON [id number] 17:55:00Reason for exam:->dyspneaShould this be performed at [...] MDReport Verified Date/Time: 02/09/2019 17:55:29 Reading Location: [facility] [id number] Consult Reading Room SODIUM, RANDOM [id number] 16:13:00 Test Item Value Reference Range Comments SODIUM URINE (BEAKER) (test wybj=745) < meq/L Reference Range: No NormalsCREATININE, RANDOM [id number] 16:11:00 Test Item Value Reference Range Comments CREATININE URINE (BEAKER) (test vflx=707) 177.2 mg/dL Reference Range: No NormalsUREA NITROGEN, RANDOM [id number] 16:11:00 Test Item Value Reference Range Comments UREA NITROGEN URINE (BEAKER) (test hisv=908) 557 mg/dL Reference Range: No [id number] 15:34:00 Test Item Value Reference Range Comments PROCALCITONIN (BEAKER) (test baff=8000) 0.12 ng/mL <0.05 SEPSIS RISK (ng/mL)Low: 0.05-0.50Intermediate: 0.51-2.00High: & gt;=2.01B-TYPE NATRIURETIC FACTOR (BNP)2019-02-09 15:28:00 Test Item Value Reference Range Comments B-TYPE NATRIURETIC PEPTIDE (BEAKER) (test ersc=805) 17 pg/mL 0-100 TROPONIN [id number] 15:27:00 Test Item Value Reference Range Comments TROPONIN I (BEAKER) (test rcrr=532) < ng/mL 0.00-0.03 Troponin I (TnI) levels [...] acute neurological disease, and persistent tachyarrhythmia.HEPATIC FUNCTION [id number] 15:21: 00 Test Item Value Reference Range Comments TOTAL PROTEIN (BEAKER) (test ecgs=714) 6.3 gm/dL 6.0-8.3 ALBUMIN (BEAKER) (test aitn=0979) 2.9 g/dL 3.5-5.0 BILIRUBIN TOTAL (BEAKER) (test bezq=646) 0.9 mg/dL 0.2-1.2 BILIRUBIN DIRECT (BEAKER) (test xcjx=566) 0.5 mg/dL 0.1-0.5 ALKALINE PHOSPHATASE (BEAKER) (test xvhn=039) 40 U/L 40-150 AST (SGOT) (BEAKER) (test nytp=274) 19 U/L 5-34 ALT (SGPT) (BEAKER) (test pbpd=274) 12 U/L 6-55 BASIC METABOLIC [id number] 15:21:00 Test Item Value Reference Range Comments SODIUM (BEAKER) (test 143 meq/L 136-145 idxv=721) POTASSIUM (BEAKER) (test 3.3 meq/L 3.5-5.1 otyn=127) CHLORIDE (BEAKER) (test 112 meq/L 98-107 edxn=360) CO2 (BEAKER) (test 17 meq/L 22-29 nuud=649) BLOOD UREA NITROGEN 16 mg/dL 7-21 (BEAKER) (test errh=256) CREATININE (BEAKER) (test 1.92 mg/dL 0.57-1.25 zhva=425) GLUCOSE RANDOM (BEAKER) 111 mg/dL 70-105 (test rxvj=874) CALCIUM (BEAKER) (test 8.6 mg/dL 8.4-10.2 aayc=572) EGFR (BEAKER) (test 32 mL/min/1.73 sq m ESTIMATED GFR IS NOT tfgc=8062) ACCURATE CREATININE CLEARANCE IN PREDICTING GLOMERULAR FILTRATION RATE. ESTIMATED GFR IS NOT APPLICABLE FOR DIALYSIS PATIENTS. PROTHROMBIN TIME/[id number] 15:17:00 Test Item Value Reference Range Comments PROTIME (BEAKER) (test kgxo=825) 16.0 seconds 11.7-14.7 INR (BEAKER) (test arup=517) 1.3 <=5.9 RECOMMENDED COUMADIN/WARFARIN INR THERAPY RANGESSTANDARD DOSE: 2.0 - 3.0 Includes: PROPHYLAXIS forvenous thrombosis, systemic embolization; TREATMENT for venous thrombosis and/or pulmonary embolus.HIGH RISK: Target INR is 2.5-3.5 for patients with mechanical heart valves.[id number] 15:17:00 Test Item Value Reference Range Comments FIBRINOGEN LEVEL (BEAKER) (test yydh=455) 718 mg/dl 225-434 CBC W/PLT COUNT & AUTO [id number] 15:15:00 Test Item Value Reference Range Comments WHITE BLOOD CELL COUNT (BEAKER) (test held=024) 7.0 K/ L 3.5-10.5 RED BLOOD CELL COUNT (BEAKER) (test zbpt=236) 2.80 M/ L 3.93-5.22 HEMOGLOBIN (BEAKER) (test ieje=243) 9.1 GM/DL 11.2-15.7 HEMATOCRIT (BEAKER) (test cuwz=187) 28.5 % 34.1-44.9 MEAN CORPUSCULAR VOLUME (BEAKER) (test vdht=150) 101.8 fL 79.4-94.8 MEAN CORPUSCULAR HEMOGLOBIN (BEAKER) (test 32.5 pg 25.6-32.2 vgbd=994) MEAN CORPUSCULAR HEMOGLOBIN CONC (BEAKER) (test 31.9 GM/DL 32.2-35.5 cwmn=616) RED CELL DISTRIBUTION WIDTH (BEAKER) (test 13.8 % 11.7-14.4 euid=423) PLATELET COUNT (BEAKER) (test akhr=218) 212 K/CU MM 150-450 MEAN PLATELET VOLUME (BEAKER) (test lnbz=109) 9.2 fL 9.4-12.3 NUCLEATED RED BLOOD CELLS (BEAKER) (test 0 /100 WBC 0-0 hvws=823) NEUTROPHILS RELATIVE PERCENT (BEAKER) (test 70 % mhgk=168) LYMPHOCYTES RELATIVE PERCENT (BEAKER) (test 22 % gmzv=819) MONOCYTES RELATIVE PERCENT (BEAKER) (test 5 % vwre=600) EOSINOPHILS RELATIVE PERCENT (BEAKER) (test 1 % jzcc=442) BASOPHILS RELATIVE PERCENT (BEAKER) (test 1 % onza=614) NEUTROPHILS ABSOLUTE COUNT (BEAKER) (test 4.92 K/ L 1.56-6.13 iswa=012) LYMPHOCYTES ABSOLUTE COUNT (BEAKER) (test 1.58 K/ L 1.18-3.74 onhp=839) MONOCYTES ABSOLUTE COUNT (BEAKER) (test 0.35 K/ L 0.24-0.36 cphz=999) EOSINOPHILS ABSOLUTE COUNT (BEAKER) (test 0.09 K/ L 0.04-0.36 dewt=036) BASOPHILS ABSOLUTE COUNT (BEAKER) (test 0.07 K/ L 0.01-0.08 ybmo=902) IMMATURE GRANULOCYTES-RELATIVE PERCENT (BEAKER) 0 % 0-1 (test iiar=3624) LACTIC ACID, [id number] 15:15:00 Test Item Value Reference Range Comments LACTATE BLOOD VENOUS (2) 1.3 mmol/L 0.5-2.2 Specimen moderately hemolyzed (BEAKER) (test bquz=3372) [id number] 15:14:00 Test Item Value Reference Range Comments AMMONIA (BEAKER) (test 17 mol/L 18-72 Specimen moderately hemolyzed hikd=962) [id number] 14:17:00Medical Cytology Report Case: [id number] Authorizing Provider: Mary Elizondo MD Collected: 02/01/2019 1654 Ordering Location: [address] Received: 02/02/2019 0857 Service Pathologist: Cherri [...] - HER 2 OVER-EXPRESSION: NEGATIVE (SCORE: 0)PB: [id number] X3, 61718 CAP REGULATION: FIXATION TIME FOR BIOMARKERS ASSESSMENTCollection [...] and Ki67 were assessed using clones SP1 ([place] ), 1294 ([place]), 4B5 (FDA Approved [place] [employer]) and 30-9 ([place]) respectively. Control Slides Examined: In-house known ER, MO, HER2 and Ki67 positive controls were evaluated along with test tissue. These control slides run alongside of the patients sample show appropriate staining. Internal controls when available are evaluated.Interpretive Criteria: The staining results according to the ASCO/CAP guidelines for HER2 (Jayeln AC et al. Arch Pathol Lab Med December 29) and ER/MO (Yvette HERNÁNDEZ et al. Arch Pathol Lab Med 2010; 134:e48-e72) by ASCO/CAP guidelines.ER and MO "positive" requires greater or equal to 1% [...] equal to 10% of tumor cells. The ER/MO Proportion Score indicates the proportion of positive [...] 2002). Immunohistochemistry technical testing was performed at [facility], Pathology Laboratory where it was developed [...] (SEE COMMENT) Signing Pathologist Direct Phone Line: [phone] signed by Cherri Covington MD on 02/07/2019 at 4:06 PMThe peritoneal fluid shows few atypical cells,scattered mostly singly. These cells are positive for MOC-31, Irwin -EP4 and MAYUR-3. GCDFP is negative.Calretinin and WT-1 highlight mesothelial cells. The immunoprofile is compatible with patient's history of breast primaryAn addendm report will follow with the results of the biomarkers.35576, 58962; 18156; 58405 x 5Ascites, history of of breast cancer (dx 2010 s/p chemoXRT, lumpectomy)PERITONEAL OGIKA6860 mls yellow; 4 cytospins, cell blockCollected: [id number]: [id number] interpretation of this case included the use of immunohistochemistry or special stains. Calretinin; WT- 1; MAYUR-3; GCDFP; MOC-31 AND IRWIN-KL2Ffwhfhrnbpfffhwxjpbt technical testing was performed at [facility], Pathology Laboratory where it was developed [...] qualified to perform high complexity clinical laboratory testing.[facility], Department of Pathology, [address] [place] [address], Tel [facility], [facility], [address] [place] [address], [facility]wfksEl [facility], [facility] of [facility], [address] [place] [address], Tel STOOL CULTURE + SHIGA [id number] 00:23:00 Test Item Value Reference Range Comments CULTURE (BEAKER) (test No Salmonella, Shigella or eeru=5660) Campylobacter isolated SHIGA TOXIN [id number] 10:46:00 Test Item Value Reference Range Comments SHIGA TOXIN 1 (BEAKER) (test ahbh=5761) Not detected Not detected SHIGA TOXIN 2 (BEAKER) (test nipv=0009) Not detected Not detected Resubmit new specimen if clinically indicated.BODY FLUID CULTURE + GRAM [id number] 08:40:00 Test Item Value Reference Range Comments CULTURE (BEAKER) (test ohwh=2666) No growth GRAM STAIN RESULT (BEAKER) (test 1+ WBCs cvvw=2391) GRAM STAIN RESULT (BEAKER) (test No organisms seen uqip=16946) STOOL PATH [id number] 11:26:00 Test Item Value Reference Range Comments PATHOGEN EXAM CHARGED (BEAKER) (test uwrn=4185) Done C. DIFFICILE GDH [id number] 17:05:00 Test Item Value Reference Range Comments CDT TOXIN (test Negative Negative tqxe=[id number]) CDT GDH ANTIGEN (test Negative Negative No indication of Clostridium xaho=[id number]) difficile infection and no colonization. Discontinue enteric isolation and therapy. Testing performed by [employer] Rapid Cassette Assay. For GDH, published sensitivity of the assay is 98.7% compared to cytotoxicity testing. For Toxin AB, published sensitivity is 87.8% and specificity 99.4% compared to cytotoxicity testing.Verification of kit performance was done by the [facility] Microbiology Lab prior to clinical use.[id number] 13:10:00 Test Item Value Reference Range Comments MAGNESIUM (BEAKER) (test eyjz=886) 1.9 mg/dL 1.6-2.6 BASIC METABOLIC [id number] 13:10:00 Test Item Value Reference Range Comments SODIUM (BEAKER) (test 139 meq/L 136-145 szug=146) POTASSIUM (BEAKER) (test 4.0 meq/L 3.5-5.1 fjem=611) CHLORIDE (BEAKER) (test 110 meq/L 98-107 zoip=800) CO2 (BEAKER) (test 21 meq/L 22-29 hqqt=799) BLOOD UREA NITROGEN 21 mg/dL 7-21 (BEAKER) (test crcc=300) CREATININE (BEAKER) (test 1.34 mg/dL 0.57-1.25 sibu=317) GLUCOSE RANDOM (BEAKER) 112 mg/dL 70-105 (test yypr=371) CALCIUM (BEAKER) (test 8.5 mg/dL 8.4-10.2 hjtf=671) EGFR (BEAKER) (test 49 mL/min/1.73 sq m ESTIMATED GFR IS NOT npmz=9279) ACCURATE CREATININE CLEARANCE IN PREDICTING GLOMERULAR FILTRATION RATE. ESTIMATED GFR IS NOT APPLICABLE FOR DIALYSIS PATIENTS. HEPATIC FUNCTION [id number] 13:10:00 Test Item Value Reference Range Comments TOTAL PROTEIN (BEAKER) (test iveg=708) 6.2 gm/dL 6.0-8.3 ALBUMIN (BEAKER) (test azjf=0750) 2.7 g/dL 3.5-5.0 BILIRUBIN TOTAL (BEAKER) (test kzxx=594) 0.5 mg/dL 0.2-1.2 BILIRUBIN DIRECT (BEAKER) (test zyia=224) 0.2 mg/dL 0.1-0.5 ALKALINE PHOSPHATASE (BEAKER) (test vfbg=398) 36 U/L 40-150 AST (SGOT) (BEAKER) (test uujj=492) 16 U/L 5-34 ALT (SGPT) (BEAKER) (test ojfj=548) 10 U/L 6-55 CBC W/PLT COUNT & AUTO [id number] 12:41:00 Test Item Value Reference Range Comments WHITE BLOOD CELL COUNT (BEAKER) (test jdqa=291) 6.6 K/ L 3.5-10.5 RED BLOOD CELL COUNT (BEAKER) (test grva=168) 2.65 M/ L 3.93-5.22 HEMOGLOBIN (BEAKER) (test dnwn=137) 8.6 GM/DL 11.2-15.7 HEMATOCRIT (BEAKER) (test jygh=470) 28.1 % 34.1-44.9 MEAN CORPUSCULAR VOLUME (BEAKER) (test ftog=101) 106.0 fL 79.4-94.8 MEAN CORPUSCULAR HEMOGLOBIN (BEAKER) (test 32.5 pg 25.6-32.2 xfuw=283) MEAN CORPUSCULAR HEMOGLOBIN CONC (BEAKER) (test 30.6 GM/DL 32.2-35.5 zyhj=466) RED CELL DISTRIBUTION WIDTH (BEAKER) (test 13.6 % 11.7-14.4 abjo=823) PLATELET COUNT (BEAKER) (test ajdx=388) 285 K/CU MM 150-450 MEAN PLATELET VOLUME (BEAKER) (test itdu=796) 8.3 fL 9.4-12.3 NUCLEATED RED BLOOD CELLS (BEAKER) (test 0 /100 WBC 0-0 tgal=515) NEUTROPHILS RELATIVE PERCENT (BEAKER) (test 71 % zoun=895) LYMPHOCYTES RELATIVE PERCENT (BEAKER) (test 22 % ihjs=604) MONOCYTES RELATIVE PERCENT (BEAKER) (test 6 % zhsu=472) EOSINOPHILS RELATIVE PERCENT (BEAKER) (test 0 % qiyv=487) BASOPHILS RELATIVE PERCENT (BEAKER) (test 1 % lyii=965) NEUTROPHILS ABSOLUTE COUNT (BEAKER) (test 4.68 K/ L 1.56-6.13 wxrc=572) LYMPHOCYTES ABSOLUTE COUNT (BEAKER) (test 1.43 K/ L 1.18-3.74 nagn=868) MONOCYTES ABSOLUTE COUNT (BEAKER) (test 0.39 K/ L 0.24-0.36 wphc=915) EOSINOPHILS ABSOLUTE COUNT (BEAKER) (test 0.02 K/ L 0.04-0.36 nrru=881) BASOPHILS ABSOLUTE COUNT (BEAKER) (test 0.03 K/ L 0.01-0.08 bchr=167) IMMATURE GRANULOCYTES-RELATIVE PERCENT (BEAKER) 1 % 0-1 (test puep=0550) U/S, ABDOMINAL, WITH [id number] 10:51:00Reason for exam:->ascites, evaluate for PVTFINAL REPORT [...] Espinozaeport Verified Date/Time: 10:51:26 Reading Location: [address] Ultrasound Reading Room BODY FLUID CELL COUNT WITH [id number] 19:54:00 Test Item Value Reference Range Comments APPEARANCE FLUID (BEAKER) (test ilfn=681) Slightly Hazy Clear COLOR FLUID (BEAKER) (test mryi=050) Yellow Colorless, Straw RBC FLUID (BEAKER) (test kcnq=753) 262 /cu mm <=1 ADJUSTED WBC FLUID (BEAKER) (test rklp=9448) 93 /cu mm <=5 LINING CELLS (BEAKER) (test ybnf=6620) 4 /cu mm <=1 NEUTROPHILS FLUID (BEAKER) (test mhbu=5063) 1 % LYMPHS FLUID (BEAKER) (test kecb=036) 14 % MONO/MACROPHAGE FLUID (BEAKER) (test 85 % nklr=408) EOSINOPHILS FLUID (BEAKER) (test wdce=352) 0 % BASO FLUID (BEAKER) (test dmrw=670) 0 % CONTAINER BODY FLUID (BEAKER) (test EDTA Tube tslo=8092) ALBUMIN, BODY [id number] 18:05:00 Test Item Value Reference Range Comments ALBUMIN FLUID (BEAKER) (test bchd=795) 2.6 gm/dL Reference Range: No Normals Assay performance has not been validated for this type of specimen.PROTEIN, BODY [id number] 18:05:00 Test Item Value Reference Range Comments PROTEIN FLUID (BEAKER) (test xjvn=250) 4.6 g/dL Absence of reference range indicates that normals have not been defined.Assay performance has not been validated for this type of specimen.U/S, [id number] 17:07:00Reason for exam:->ascites of unclear etiology , [...] sterile technique, ultrasound guidance and a 5 [place] coaxial needle, a single pass right lower [...] MDReport Verified Date/Time: 02/01/2019 17:07:23 Reading Location: [place] [id number] Ultrasound Reading Room [id number] 12:56:00 Test Item Value Reference Range Comments MAGNESIUM (BEAKER) (test zhsj=147) 2.2 mg/dL 1.6-2.6 BASIC METABOLIC [id number] 12:56:00 Test Item Value Reference Range Comments SODIUM (BEAKER) (test 142 meq/L 136-145 joci=151) POTASSIUM (BEAKER) (test 4.3 meq/L 3.5-5.1 nokq=458) CHLORIDE (BEAKER) (test 108 meq/L 98-107 gghy=756) CO2 (BEAKER) (test 24 meq/L 22-29 vqom=424) BLOOD UREA NITROGEN 22 mg/dL 7-21 (BEAKER) (test fole=695) CREATININE (BEAKER) (test 1.72 mg/dL 0.57-1.25 hgct=823) GLUCOSE RANDOM (BEAKER) 139 mg/dL 70-105 (test pvvz=493) CALCIUM (BEAKER) (test 9.1 mg/dL 8.4-10.2 ioqk=990) EGFR (BEAKER) (test 36 mL/min/1.73 sq m ESTIMATED GFR IS NOT rbjx=1882) ACCURATE CREATININE CLEARANCE IN PREDICTING GLOMERULAR FILTRATION RATE. ESTIMATED GFR IS NOT APPLICABLE FOR DIALYSIS PATIENTS. HEPATIC FUNCTION [id number] 12:56:00 Test Item Value Reference Range Comments TOTAL PROTEIN (BEAKER) (test fcvr=495) 7.0 gm/dL 6.0-8.3 ALBUMIN (BEAKER) (test slfo=9840) 3.1 g/dL 3.5-5.0 BILIRUBIN TOTAL (BEAKER) (test wmvt=129) 0.6 mg/dL 0.2-1.2 BILIRUBIN DIRECT (BEAKER) (test weqg=856) 0.4 mg/dL 0.1-0.5 ALKALINE PHOSPHATASE (BEAKER) (test repk=583) 42 U/L 40-150 AST (SGOT) (BEAKER) (test gtho=886) 15 U/L 5-34 ALT (SGPT) (BEAKER) (test qpei=442) 10 U/L 6-55 PROTHROMBIN [id number] 12:51:00 Test Item Value Reference Range Comments PROTIME (BEAKER) (test bjvl=699) 16.5 seconds 11.7-14.7 INR (BEAKER) (test dbtl=554) 1.3 <=5.9 RECOMMENDED COUMADIN/WARFARIN INR THERAPY RANGESSTANDARD DOSE: 2.0 - 3.0 Includes: PROPHYLAXIS forvenous thrombosis, systemic embolization; TREATMENT for venous thrombosis and/or pulmonary embolus.HIGH RISK: Target INR is 2.5-3.5 for patients with mechanical heart valves.CBC (HEMOGRAM ONLY)2019-02-01 12:38:00 Test Item Value Reference Range Comments WHITE BLOOD CELL COUNT (BEAKER) (test ndzk=883) 9.6 K/ L 3.5-10.5 RED BLOOD CELL COUNT (BEAKER) (test arwf=191) 2.77 M/ L 3.93-5.22 HEMOGLOBIN (BEAKER) (test kopq=570) 9.1 GM/DL 11.2-15.7 HEMATOCRIT (BEAKER) (test ybpn=718) 28.9 % 34.1-44.9 MEAN CORPUSCULAR VOLUME (BEAKER) (test ezar=716) 104.3 fL 79.4-94.8 MEAN CORPUSCULAR HEMOGLOBIN (BEAKER) (test 32.9 pg 25.6-32.2 ctly=826) MEAN CORPUSCULAR HEMOGLOBIN CONC (BEAKER) (test 31.5 GM/DL 32.2-35.5 cvyl=397) RED CELL DISTRIBUTION WIDTH (BEAKER) (test 13.7 % 11.7-14.4 ieyl=946) PLATELET COUNT (BEAKER) (test ayax=783) 318 K/CU MM 150-450 MEAN PLATELET VOLUME (BEAKER) (test yykk=816) 8.3 fL 9.4-12.3 NUCLEATED RED BLOOD CELLS (BEAKER) (test 0 /100 WBC 0-0 wuty=081)
--- NOTE | 2019-04-01 13:51 | RAD REPORT ---
EXAM DESCRIPTION: RAD - Chest Single View - 04/01/2019 1:43 pm CLINICAL HISTORY: Cough;Abdominal distention Chest pain. COMPARISON: <Comparisons> FINDINGS: Portable technique limits examination quality. A small left pleural effusion is noted, unchanged. Haziness in left lung base is likely related to at electasis. The heart is mildly prominent with right-sided venous catheter. Tip is in the SVC region.
[2019-04-01 14:08] LABS: Absolute Lymphocytes (CBC) 1.4 K/uL (0.7-4.9); Absolute Monocytes 0.1 K/uL (0.1-1.3); Basophils % 1.3 % (0-1.3); Eosinophils % 1.8 % (0-4.4); Hematocrit 26.8 % (36.0-45.0); Lymphocytes % 38.3 % (15.3-44.8); MPV 7.8 fL (7.6-11.3); Monocytes % 2.1 % (3.3-12.3); Protime INR 1.19; RBC Red Blood Cell Count 2.93 M/uL (3.86-4.86)
[2019-04-01] MEDS ORDERED: ONDANSETRON 4 MG/2 ML VIAL ONE (14:20)
[2019-04-01] MEDS ORDERED: NA CHLORIDE 0.9% 1,000 ML ONE (14:20)
[2019-04-01 14:24] LABS: ALT/SGPT 14 U/L (12-78); AST/SGOT 17 U/L (15-37); Albumin 2.9 g/dL (3.4-5.0); Alkaline Phosphatase 73 U/L (45-117); BUN Blood Urea Nitrogen 9 mg/dL (7-18); Bicarbonate 23 mmol/L (21-32); Bilirubin Direct 0.2 mg/dL (0-0.2); Bilirubin Total 0.9 mg/dL (0.2-1.0); Glucose Level 110 mg/dL (74-106); Lipase 175 U/L (73-393); Magnesium 1.5 mg/dL (1.8-2.4); NT PRO-BNP 144 pg/mL (<125); Potassium 3.2 mmol/L (3.5-5.1); Protein, Total 7.2 g/dL (6.4-8.2); Sodium Level 142 mmol/L (136-145); Troponin (Emerg Dept Use Only) < 0.02 ng/mL (0.0-0.045)
--- NOTE | 2019-04-01 14:58 | ER ---
Nurse's Notes [facility] Name: Angie Spring Age: 63 yrs Sex: Female : 1955 Arrival Date: 04/01/2019 Time: 12:47 Bed 15 Private MD: Diagnosis: Ascites;Hypomagnesemia;Hypokalemia;Pleural condition, unspecified;Pleural effusion, not elsewhere classified-MALIGANT EFFUSION;Unspecified kidney failure-insufficency Presentation: 04/01 12:51 Presenting complaint: Patient states: I called Dr. Baker and she told me to come in la1 because there is fluid in my belly and I need to see if it needs to be drained again, last abdominocentesis was about a month ago. Pt reports minimal pain but feels full. Transition of care: patient was not received from another setting of care. Onset of symptoms was April 01, 2019. Risk Assessment: Do you want to hurt yourself or someone else? Patient reports no desire to harm self or others. Initial Sepsis Screen: Does the patient meet any 2 criteria? No. Patient's initial sepsis screen is negative. Does the patient have a suspected source of infection? No. Patient's initial sepsis screen is negative. Care prior to arrival: None. 12:51 Method Of Arrival: Wheelchair la1 12:51 Acuity: KAT 2 la1 Historical: - Allergies: 12:54 No Known Allergies; la1 - PMHx: 12:54 breast cancer; fluid around lungs; Hypertension; lymphedema; Currently on Chemo; la1 - PSHx: 12:54 Right lumpectomy; partial throidectomy; la1 - Immunization history:: Adult Immunizations up to date. - Social history:: Smoking status: Patient/guardian denies using tobacco. - Ebola Screening: : No symptoms or risks identified at this time. - Family history:: not pertinent. Screenin:30 Abuse screen: Denies threats or abuse. Nutritional screening: No deficits noted. aa5 Tuberculosis screening: No symptoms or risk factors identified. Fall Risk None identified. Assessment: 13:15 General: Appears comfortable, Behavior is calm, cooperative. Pain: Denies pain. Neuro: aa5 Level of Consciousness is awake, alert, obeys commands, Oriented to person, place, time, situation. Cardiovascular: Heart tones S1 S2 present Rhythm is sinus tachycardia. Respiratory: Reports shortness of breath Airway is patent Respiratory effort is even, unlabored, Respiratory pattern is regular, symmetrical, Breath sounds are clear bilaterally. 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 : No signs and/or symptoms were reported regarding the genitourinary system. EENT: No signs and/or symptoms were reported regarding the EENT system. Derm: Skin is dry, Skin is normal, Skin temperature is warm. Musculoskeletal: Range of motion: intact in all extremities, Swelling present in right arm. 13:30 Reassessment: Pt vomited 300cc of stomach contents, pt requesting to hold IV placement aa5 for now.. 13:45 Reassessment: Pt states feeling better at this time, VO to access port-a-cath at this aa5 time. To bedside to access port-a-cath. . 14:15 Neuro: Level of Consciousness is awake, alert, obeys commands, Oriented to person, aa5 place, time, situation. Respiratory: Airway is patent Respiratory effort is even, unlabored, Respiratory pattern is regular, symmetrical. Derm: Skin is dry, Skin is normal, Skin temperature is warm. 15:15 Neuro: Level of Consciousness is awake, alert, obeys commands, Oriented to person, aa5 place, time, situation. Respiratory: Airway is patent Respiratory effort is even, unlabored, Respiratory pattern is regular, symmetrical. Derm: Skin is dry, Skin is normal, Skin temperature is warm. 16:05 Neuro: Level of Consciousness is awake, alert, obeys commands, Oriented to person, aa5 place, time, situation. Respiratory: Airway is patent Respiratory effort is even, unlabored, Respiratory pattern is regular, symmetrical. Derm: Skin is dry, Skin is normal, Skin temperature is warm. 16:35 Neuro: Level of Consciousness is awake, alert, obeys commands, Oriented to person, aa5 place, time, situation. Respiratory: Airway is patent Respiratory effort is even, unlabored, Respiratory pattern is regular, symmetrical. Derm: Skin is dry, Skin is normal, Skin temperature is warm. Vital Signs: 12:54 BP 108 / 78; Pulse 125; Resp 15; Temp 98.0; Pulse Ox 98% on R/A; Weight 92.99 kg; la1 Height 5 ft. 7 in. (170.18 cm); 14:15 BP 92 / 77; Pulse 108; Resp 20 S; Pulse Ox 98% on R/A; Pain 0/10; aa5 15:30 BP 93 / 73; Pulse 98; Resp 16 S; Temp 98.6(O); Pulse Ox 98% on R/A; aa5 16:05 BP 107 / 75; Pulse 97; Resp 16 S; Temp 98.5(O); Pulse Ox 99% on R/A; Pain 0/10; aa5 12:54 Body Mass Index 32.11 (92.99 kg, 170.18 cm) la1 ED Course: 12:47 Patient arrived in ED. rg4 12:53 Triage completed. la1 12:54 Arm band placed on left wrist. la1 12:58 Vidal Espinal MD is Attending Physician. aminata 13:02 Violet Green, RN is Primary Nurse. aa5 13:15 Patient has correct armband on for positive identification. Bed in low position. Call aa5 light in reach. Side rails up X2. Adult w/ patient. 13:44 XRAY Chest (1 view) In Process Unspecified. EDMS 13:45 EKG done, by ED staff, reviewed by Vidal Espinal MD. jp3 13:50 Accessed Port-a-Cath. using accessed w/ # 20 [place] needle, ,sterile technique, per [facility] hospital protocol. Clean \T\ dry. Good blood return. Flushes easily. 13:50 Initial lab(s) drawn, by me, sent to lab. aa5 13:50 No provider procedures requiring assistance completed. aa5 14:55 Rufina Hooper MD is Referral Physician. aminata 16:35 port-a-cath dc'd, locked with heparin per protocol, pt tolerated well, band-aid applied aa5 to site. Administered Medications: 14:17 Drug: Zofran 4 mg Route: IVP; Site: Port-a-cath; aa5 14:25 Follow up: Response: No adverse reaction aa5 14:18 Drug: NS 0.9% 1000 ml Route: IV; Rate: 125 ml/hr; Site: Port-a-cath; aa5 16:35 Follow up: IV Status: Order to discontinue infusion; IV Intake: 250ml aa5 15:00 Drug: Magnesium Sulfate 2 grams Route: IVPB; Infused Over: 2 hrs; Site: Port-a-cath; aa5 16:35 Follow up: Response: No adverse reaction; IV Status: Completed infusion aa5 16:20 Not Given (Patient Refused): Potassium Effervescent Tablet 50 mEq PO once; dissolve in aa5 4 ounces of water or juice Intake: 16:35 IV: 250ml; Total: 250ml. aa5 Outcome: 14:57 Discharge ordered by . aminata 16:35 Discharged to home via wheelchair, with family. aa5 16:35 Condition: stable 16:35 Discharge instructions given to patient, Instructed on discharge instructions, follow up and referral plans. Demonstrated understanding of instructions, follow-up care. 16:42 Patient left the ED. aa5 Signatures: Dispatcher [employer] Vidal Sterling MD MD cha Calderon, Audri RN RN aa5 Foster Mckinney RN RN Elisa Brown4 David Mcintosh 3
--- NOTE | 2019-04-01 14:58 | EDPHYS ---
Physician Documentation [facility] Name: Angie Spring Age: 63 yrs Sex: Female : 1955 Arrival Date: 04/01/2019 Time: 12:47 Bed 15 Private MD: EMMIE Physician Vidal Espinal HPI: 04/01 14:10 This 63 yrs old Black Female presents to ER via Wheelchair with complaints of Abdominal aminata Swelling. 14:10 The patient presents with abdominal distention in the upper abdomen, in the lower aminata abdomen. Onset: The symptoms/episode began/occurred 5 day(s) ago. The symptoms do not radiate. Associated signs and symptoms: none. The symptoms are described as crampy. Modifying factors: The symptoms are alleviated by nothing, the symptoms are aggravated by nothing. The patient has experienced similar episodes in the past, a few times. Historical: - Allergies: 12:54 No Known Allergies; la1 - PMHx: 12:54 breast cancer; fluid around lungs; Hypertension; lymphedema; Currently on Chemo; la1 - PSHx: 12:54 Right lumpectomy; partial throidectomy; la1 - Immunization history:: Adult Immunizations up to date. - Social history:: Smoking status: Patient/guardian denies using tobacco. - Ebola Screening: : No symptoms or risks identified at this time. - Family history:: not pertinent. ROS: 14:10 Constitutional: Negative for fever, chills, and weight loss, Eyes: Negative for injury, aminata pain, redness, and discharge, ENT: Negative for injury, pain, and discharge, Neck: Negative for injury, pain, and swelling, Cardiovascular: Negative for chest pain, palpitations, and edema, Respiratory: Negative for shortness of breath, cough, wheezing, and pleuritic chest pain, Back: Negative for injury and pain, : Negative for injury, bleeding, discharge, and swelling, MS/Extremity: Negative for injury and deformity, Skin: Negative for injury, rash, and discoloration, Neuro: Negative for headache, weakness, numbness, tingling, and seizure, Psych: Negative for depression, anxiety, suicide ideation, homicidal ideation, and hallucinations, Allergy/Immunology: Negative for hives, rash, and allergies, Endocrine: Negative for neck swelling, polydipsia, polyuria, polyphagia, and marked weight changes, Hematologic/Lymphatic: Negative for swollen nodes, abnormal bleeding, and unusual bruising. 14:10 Abdomen/GI: Positive for abdominal distension, of the right upper quadrant, left upper quadrant, right lower quadrant and left lower quadrant. Exam: 14:10 Constitutional: This is a well developed, well nourished patient who is awake, alert, aminata and in no acute distress. Head/Face: Normocephalic, atraumatic. Eyes: Pupils equal round and reactive to light, extra-ocular motions intact. Lids and lashes normal. Conjunctiva and sclera are non-icteric and not injected. Cornea within normal limits. Periorbital areas with no swelling, redness, or edema. ENT: Nares patent. No nasal discharge, no septal abnormalities noted. Tympanic membranes are normal and external auditory canals are clear. Oropharynx with no redness, swelling, or masses, exudates, or evidence of obstruction, uvula midline. Mucous membranes moist. Neck: Trachea midline, no thyromegaly or masses palpated, and no cervical lymphadenopathy. Supple, full range of motion without nuchal rigidity, or vertebral point tenderness. No Meningismus. Chest/axilla: Normal chest wall appearance and motion. Nontender with no deformity. No lesions are appreciated. Cardiovascular: Regular rate and rhythm with a normal S1 and S2. No gallops, murmurs, or rubs. Normal PMI, no JVD. No pulse deficits. Respiratory: Lungs have equal breath sounds bilaterally, clear to auscultation and percussion. No rales, rhonchi or wheezes noted. No increased work of breathing, no retractions or nasal flaring. Back: No spinal tenderness. No costovertebral tenderness. Full range of motion. Female : Normal external genitalia. Skin: Warm, dry with normal turgor. Normal color with no rashes, no lesions, and no evidence of cellulitis. MS/ Extremity: Pulses equal, no cyanosis. Neurovascular intact. Full, normal range of motion. Neuro: Awake and alert, GCS 15, oriented to person, place, time, and situation. Cranial nerves II-XII grossly intact. Motor strength 5/5 in all extremities. Sensory grossly intact. Cerebellar exam normal. Normal gait. Psych: Awake, alert, with orientation to person, place and time. Behavior, mood, and affect are within normal limits. 14:10 Abdomen/GI: Inspection: distension, Bowel sounds: normal, Palpation: abdomen is soft and non-tender, Liver: no appreciated palpable abnormalities, Hernia: not appreciated. 14:53 Musculoskeletal/extremity: DVT Exam: No signs of deep vein thrombosis. no pain, no aminata swelling, no tenderness, negative Homans' sign noted on exam, no appreciated bluish discoloration, no erythema, no increased warmth. Vital Signs: 12:54 BP 108 / 78; Pulse 125; Resp 15; Temp 98.0; Pulse Ox 98% on R/A; Weight 92.99 kg; la1 Height 5 ft. 7 in. (170.18 cm); 14:15 BP 92 / 77; Pulse 108; Resp 20 S; Pulse Ox 98% on R/A; Pain 0/10; aa5 15:30 BP 93 / 73; Pulse 98; Resp 16 S; Temp 98.6(O); Pulse Ox 98% on R/A; aa5 16:05 BP 107 / 75; Pulse 97; Resp 16 S; Temp 98.5(O); Pulse Ox 99% on R/A; Pain 0/10; aa5 12:54 Body Mass Index 32.11 (92.99 kg, 170.18 cm) la1 MDM: 12:58 Patient medically screened. [facility] 14:11 Data reviewed: vital signs, nurses notes, lab test result(s), EKG, radiologic studies, aminata plain films. 04/01 13:01 Order name: Basic Metabolic Panel [facility] 04/01 13:01 Order name: CBC with Diff [facility] 04/01 13:01 Order name: LFT's [facility] 04/01 13:01 Order name: Magnesium [facility] 04/01 13:01 Order name: NT PRO-BNP [facility] 04/01 13:01 Order name: PT-INR; Complete Time: 14:51 [facility] 04/01 13:01 Order name: Troponin (emerg Dept Use Only) [facility] 04/01 13:01 Order name: Lipase [facility] 04/01 13:01 Order name: AMMONIA; Complete Time: 14:51 [facility] 04/01 13:01 Order name: Basic Metabolic Panel; Complete Time: 14:51 EDMO 04/01 13:01 Order name: CBC with Automated Diff; Complete Time: 14:51 EDMO 04/01 13:01 Order name: Liver (Hepatic) Function; Complete Time: 14:51 EDMS 04/01 13:01 Order name: Magnesium; Complete Time: 14:51 EDMS 04/01 13:01 Order name: XRAY Chest (1 view); Complete Time: 14:51 [facility] 04/01 13:01 Order name: EKG; Complete Time: 13:02 [facility] 04/01 13:01 Order name: Cardiac monitoring; Complete Time: 13:34 [facility] 04/01 13:01 Order name: EKG - Nurse/Tech; Complete Time: 13:34 [facility] 04/01 13:01 Order name: IV Saline Lock; Complete Time: 13:59 [facility] 04/01 13:01 Order name: Labs collected and sent; Complete Time: 13:59 [facility] 04/01 13:01 Order name: O2 Per Protocol; Complete Time: 13:33 [facility] 04/01 13:01 Order name: O2 Sat Monitoring; Complete Time: 13:33 [facility] 04/01 13:02 Order name: NT PRO-BNP; Complete Time: 14:51 EDMS 04/01 13:02 Order name: Troponin (Emerg Dept Use Only); Complete Time: 14:51 EDMS 04/01 13:02 Order name: Lipase; Complete Time: 14:51 EDMS Administered Medications: 14:17 Drug: Zofran 4 mg Route: IVP; Site: Port-a-cath; aa5 14:25 Follow up: Response: No adverse reaction aa5 14:18 Drug: NS 0.9% 1000 ml Route: IV; Rate: 125 ml/hr; Site: Port-a-cath; aa5 16:35 Follow up: IV Status: Order to discontinue infusion; IV Intake: 250ml aa5 15:00 Drug: Magnesium Sulfate 2 grams Route: IVPB; Infused Over: 2 hrs; Site: Port-a-cath; aa5 16:35 Follow up: Response: No adverse reaction; IV Status: Completed infusion aa5 16:20 Not Given (Patient Refused): Potassium Effervescent Tablet 50 mEq PO once; dissolve in aa5 4 ounces of water or juice Disposition: 04/01/19 14:57 Discharged to Home. Impression: Ascites, Hypomagnesemia, Hypokalemia, Pleural condition, unspecified, Pleural effusion, not elsewhere classified - MALIGANT EFFUSION, Unspecified kidney failure - insufficency. - Condition is Stable. - Discharge Instructions: Ascites, Potassium Content of Foods, Hypomagnesemia, Pleural Effusion, Heart Failure, [id number], Hypokalemia. - Medication Reconciliation Form, Thank You Letter, Antibiotic Education, Prescription Opioid Use form. - Follow up: Private Physician; When: 2 - 3 days; Reason: Recheck today's complaints, Continuance of care, Re-evaluation by your physician. Follow up: Rufina Hooper MD; When: 2 - 3 days; Reason: Recheck today's complaints, Continuance of care, Re-evaluation by your physician. - Problem is new. - Symptoms have improved. Signatures: Dispatcher [employer] [facility] Vidal Espinal MD MD cha Calderon, Audri RN RN aa5 Foster Mckinney RN RN la1 Corrections: (The following items were deleted from the chart) 16:28 13:00 Urine Dipstick-Ancillary ordered. aminata perez 16:32 13:02 Urine Culture+BA.LAB.BRZ ordered. [facility] 16:42 14:57 04/01/2019 14:57 Discharged to Home. Impression: Ascites; Hypomagnesemia; aa5 Hypokalemia; Pleural condition, unspecified; Pleural effusion, not elsewhere classified - MALIGANT EFFUSION; Unspecified kidney failure - insufficency. Condition is Stable. Forms are Medication Reconciliation Form, Thank You Letter, Antibiotic Education, Prescription Opioid Use. Follow up: Private Physician; When: 2 - 3 days; Reason: Recheck today's complaints, Continuance of care, Re-evaluation by your physician. Follow up: Rufina Dueñas; When: 2 - 3 days; Reason: Recheck today's complaints, Continuance of care, Re-evaluation by your physician. Problem is new. Symptoms have improved. aminata
[2019-04-01] MEDS ORDERED: Magnesium Sulfate 2gm IVPB 2 G/50 ML BAG IV ONE (15:10)
[2019-04-01] MEDS ORDERED: POTASSIUM 25 MEQ EFFERV TAB ONE (15:10)
[2019-04-01] MEDS ORDERED: HEPARIN 500 UNIT/5 ML SYR IV ONE (15:53)
--- NOTE | 2019-04-02 10:08 | EKG ---
Test Date: 2019-04-01 Test Time: 13:34:53 [employer] No[employer] Operator: DEANGELO MEASUREMENT RESULTS: Intervals: Rate: 112 CT: 134 QRSD: 72 QT: 346 QTc: 472 [place]: P: 27 CT: 134 QRS: 39 T: 19 INTERPRETIVE STATEMENTS: Sinus tachycardia Otherwise normal ECG Compared to ECG 02/08/2019 13:10:43 No significant changes Electronically Signed On 04-02-19 10:05:55 CDT by Jaime Foley
== END 2019-04-01 16:42 | disposition home or self-care (01) ==
LOC: ER 12:44
DX: R14.0 Abdominal distension (gaseous) (principal); R18.8 Other ascites; E83.42 Hypomagnesemia; E87.6 Hypokalemia; C80.1 Malignant (primary) neoplasm, unspecified; J91.0 Malignant pleural effusion; N19 Unspecified kidney failure; C50.919 Malignant neoplasm of unspecified site of unspecified female breast; I10 Essential (primary) hypertension
CPT/HCPCS: 96365; 96361; 93005; 85025; 80048; 36415; 82140; 83735; 85610; 80076; 84484; 83690; 83880; 71045; 96375; 99285; 96366; J3475; J1642; J7030; J2405

== ENCOUNTER 2019-11-23 13:20 | Emergency (ER) | payer OTHER ==
--- OUTSIDE RECORDS SUMMARY | 2019-11-23 13:25 | XMS REPORT ---
:1955 Author Organization [facility] Address [facility] [place] [address] Care Team Providers Name Role Phone DANIELLE [...] Comments WHITE BLOOD CELL COUNT (BEAKER) (test zicf=446) 5.1 K/ L 3.5-10.5 RED BLOOD CELL COUNT (BEAKER) (test vnpv=830) 2.77 M/ L 3.93-5.22 HEMOGLOBIN (BEAKER) (test skzj=966) 8.4 GM/DL 11.2-15.7 HEMATOCRIT (BEAKER) (test miag=762) 26.7 % 34.1-44.9 MEAN CORPUSCULAR VOLUME (BEAKER) (test lprg=268) 96.4 fL 79.4-94.8 MEAN CORPUSCULAR HEMOGLOBIN (BEAKER) (test mhxk=623) 30.3 pg 25.6-32.2 MEAN CORPUSCULAR HEMOGLOBIN CONC (BEAKER) (test ryyz=116) 31.5 GM/DL 32.2- 35.5 RED CELL DISTRIBUTION WIDTH (BEAKER) (test kuvr=504) 15.5 % 11.7-14.4 PLATELET COUNT (BEAKER) (test jurp=454) 179 K/CU MM 150-450 MEAN PLATELET VOLUME (BEAKER) (test dnty=103) 10.2 fL 9.4-12.3 NUCLEATED RED BLOOD CELLS (BEAKER) (test jzev=311) 0 /100 WBC 0-0 (CELLAVISION MANUAL DIFF)2019-02-20 12:08:00 Test Item Value Reference Range Comments NEUTROPHILS - REL (CELLAVISION)(BEAKER) (test 86 % wepc=4324) LYMPHOCYTES - REL (CELLAVISION)(BEAKER) (test 7 % lulr=5504) MONOCYTES - REL (CELLAVISION)(BEAKER) (test 1 % crnq=5050) METAMYELOCYTES - REL (CELLAVISION)(BEAKER) (test 3 % 0-0 fpdy=5393) BANDS - REL (CELLAVISION)(BEAKER) (test 3 % 0-10 ztjv=2388) NEUTROPHILS - ABS (CELLAVISION)(BEAKER) (test 4.39 K/ul 1.56-6.13 nwtb=5773) LYMPHOCYTES - ABS (CELLAVISION)(BEAKER) (test 0.36 K/ul 1.18-3.74 zidp=6192) MONOCYTES - ABS (CELLAVISION)(BEAKER) (test 0.05 K/uL 0.24-0.36 lduy=2002) METAMYELOCYTES - ABS (CELLAVISION)(BEAKER) (test 0.15 K/uL 0.00-0.00 yzfm=2028) BANDS - ABS (CELLAVISION)(BEAKER) (test 0.15 K/uL 0.00-0.80 uavq=7642) TOTAL COUNTED (BEAKER) (test akuc=5531) 100 SMUDGE CELLS (BEAKER) (test dzfa=5558) Present LARGE PLT(BEAKER) (test nlii=3109) Present ANISOCYTOSIS (BEAKER) (test fpsq=525) 1+ few POIKILOCYTES (BEAKER) (test meak=445) 1+ few SCHISTOCYTES (BEAKER) (test ipoh=018) 1+ few ELLIPTOCYTES (BEAKER) (test kqcp=596) 2+ moderate VIDHI CELLS (BEAKER) (test hasg=955) 2+ moderate ARTIFACT (CELLAVISION)(BEAKER) (test frnv=8428) Present PLATELET CONCENTRATION (CELLAVISION)(BEAKER) Adequate (test hhyb=4341) Received comment: User comments: Slide comments: WBC: SEGMENTED WITH TOXIC GRANULATION PRESENTBASIC METABOLIC [id number] 07:54:00 Test Item Value Reference Range Comments SODIUM (BEAKER) (test 140 meq/L 136-145 oifz=359) POTASSIUM (BEAKER) (test 3.4 meq/L 3.5-5.1 hnku=162) CHLORIDE (BEAKER) (test 107 meq/L 98-107 dhxg=292) CO2 (BEAKER) (test 26 meq/L 22-29 ugdl=654) BLOOD UREA NITROGEN 14 mg/dL 7-21 (BEAKER) (test cobi=670) CREATININE (BEAKER) (test 1.71 mg/dL 0.57-1.25 ubpb=720) GLUCOSE RANDOM (BEAKER) 104 mg/dL 70-105 (test iflf=895) CALCIUM (BEAKER) (test 7.8 mg/dL 8.4-10.2 ffol=914) EGFR (BEAKER) (test 37 mL/min/1.73 sq m ESTIMATED GFR IS NOT kdyy=8033) ACCURATE CREATININE CLEARANCE IN PREDICTING GLOMERULAR FILTRATION RATE. ESTIMATED GFR IS NOT APPLICABLE FOR DIALYSIS PATIENTS. [id number] 07:48:00 Test Item Value Reference Range Comments PHOSPHORUS (BEAKER) (test jldu=019) 1.9 mg/dL 2.3-4.7 [id number] 07:48:00 Test Item Value Reference Range Comments MAGNESIUM (BEAKER) (test ijsh=053) 1.5 mg/dL 1.6-2.6 HEPATIC FUNCTION [id number] 07:48:00 Test Item Value Reference Range Comments TOTAL PROTEIN (BEAKER) (test nbfd=720) 5.4 gm/dL 6.0-8.3 ALBUMIN (BEAKER) (test qqnb=8566) 2.9 g/dL 3.5-5.0 BILIRUBIN TOTAL (BEAKER) (test rybo=688) 1.0 mg/dL 0.2-1.2 BILIRUBIN DIRECT (BEAKER) (test balu=173) 0.6 mg/dL 0.1-0.5 ALKALINE PHOSPHATASE (BEAKER) (test lmnv=389) 47 U/L 40-150 AST (SGOT) (BEAKER) (test mvuy=957) 44 U/L 5-34 ALT (SGPT) (BEAKER) (test wndj=081) 22 U/L 6-55 CREATINE KINASE (CK)2019-02-20 07:48:00 Test Item Value Reference Range Comments CREATINE KINASE TOTAL (BEAKER) (test kjxx=221) 39 U/L 29-200 [id number] 07:48:00 Test Item Value Reference Range Comments PHOSPHORUS (BEAKER) (test wogq=268) 2.0 mg/dL 2.3-4.7 [id number] 07:48:00 Test Item Value Reference Range Comments MAGNESIUM (BEAKER) (test rhzy=664) 1.7 mg/dL 1.6-2.6 BASIC METABOLIC [id number] 07:48:00 Test Item Value Reference Range Comments SODIUM (BEAKER) (test 142 meq/L 136-145 jqjp=446) POTASSIUM (BEAKER) (test 3.3 meq/L 3.5-5.1 eryd=655) CHLORIDE (BEAKER) (test 106 meq/L 98-107 zojl=656) CO2 (BEAKER) (test 26 meq/L 22-29 vfzp=642) BLOOD UREA NITROGEN 19 mg/dL 7-21 (BEAKER) (test cbaj=880) CREATININE (BEAKER) (test 1.97 mg/dL 0.57-1.25 qmor=312) GLUCOSE RANDOM (BEAKER) 113 mg/dL 70-105 (test hipf=840) CALCIUM (BEAKER) (test 8.1 mg/dL 8.4-10.2 vbzr=338) EGFR (BEAKER) (test 31 mL/min/1.73 sq m ESTIMATED GFR IS NOT iwjk=0157) ACCURATE CREATININE CLEARANCE IN PREDICTING GLOMERULAR FILTRATION RATE. ESTIMATED GFR IS NOT APPLICABLE FOR DIALYSIS PATIENTS. HEPATIC FUNCTION [id number] 07:48:00 Test Item Value Reference Range Comments TOTAL PROTEIN (BEAKER) (test wgnc=430) 5.7 gm/dL 6.0-8.3 ALBUMIN (BEAKER) (test dpak=3002) 3.1 g/dL 3.5-5.0 BILIRUBIN TOTAL (BEAKER) (test fdym=763) 1.3 mg/dL 0.2-1.2 BILIRUBIN DIRECT (BEAKER) (test yrzd=918) 0.8 mg/dL 0.1-0.5 ALKALINE PHOSPHATASE (BEAKER) (test rmgu=737) 51 U/L 40-150 AST (SGOT) (BEAKER) (test ctzh=587) 30 U/L 5-34 ALT (SGPT) (BEAKER) (test slsh=555) 15 U/L 6-55 CBC W/PLT COUNT & AUTO [id number] 07:29:00 Test Item Value Reference Range Comments WHITE BLOOD CELL COUNT (BEAKER) (test psls=757) 5.5 K/ L 3.5-10.5 RED BLOOD CELL COUNT (BEAKER) (test ibqb=778) 2.97 M/ L 3.93-5.22 HEMOGLOBIN (BEAKER) (test xacg=367) 9.2 GM/DL 11.2-15.7 HEMATOCRIT (BEAKER) (test iokt=798) 27.9 % 34.1-44.9 MEAN CORPUSCULAR VOLUME (BEAKER) (test ruwi=884) 93.9 fL 79.4-94.8 MEAN CORPUSCULAR HEMOGLOBIN (BEAKER) (test 31.0 pg 25.6-32.2 jmfp=575) MEAN CORPUSCULAR HEMOGLOBIN CONC (BEAKER) (test 33.0 GM/DL 32.2-35.5 awyu=769) RED CELL DISTRIBUTION WIDTH (BEAKER) (test 15.9 % 11.7-14.4 ctpw=454) PLATELET COUNT (BEAKER) (test gvfa=775) 177 K/CU MM 150-450 MEAN PLATELET VOLUME (BEAKER) (test mkhf=616) 10.0 fL 9.4-12.3 NUCLEATED RED BLOOD CELLS (BEAKER) (test 0 /100 WBC 0-0 iixp=325) NEUTROPHILS RELATIVE PERCENT (BEAKER) (test 78 % sahn=140) LYMPHOCYTES RELATIVE PERCENT (BEAKER) (test 18 % qypz=810) MONOCYTES RELATIVE PERCENT (BEAKER) (test 2 % dfao=728) EOSINOPHILS RELATIVE PERCENT (BEAKER) (test 1 % qlfr=213) BASOPHILS RELATIVE PERCENT (BEAKER) (test 0 % ojew=853) NEUTROPHILS ABSOLUTE COUNT (BEAKER) (test 4.29 K/ L 1.56-6.13 hubm=213) LYMPHOCYTES ABSOLUTE COUNT (BEAKER) (test 1.00 K/ L 1.18-3.74 pfhr=243) MONOCYTES ABSOLUTE COUNT (BEAKER) (test 0.11 K/ L 0.24-0.36 mcmg=064) EOSINOPHILS ABSOLUTE COUNT (BEAKER) (test 0.04 K/ L 0.04-0.36 mcfw=274) BASOPHILS ABSOLUTE COUNT (BEAKER) (test 0.02 K/ L 0.01-0.08 oepq=185) IMMATURE GRANULOCYTES-RELATIVE PERCENT (BEAKER) 0 % 0-1 (test qpyo=5357) U/S, [id number] 17:56:00Reason for exam:->ascitesFINAL REPORT Ultrasound-guided paracentesis. Clinical History: Ascites Informed consent was obtained from the patient and the risks of the procedure were explained including bleeding, infection, bowel perforation and visceral injury. Sedation: 1% Xylocaine was used as local sedation. Conscious sedation protocol was not utilized as no systemic analgesia was administered. Technique: Using sterile technique, ultrasound guidance and a 5 Vietnamese coaxial needle, a single pass right lower [...] [place]ort Verified Date/Time: 02/18/2019 17:56:45 Reading Location: [address] Consult Reading Room [facility] METABOLIC [id number] 10:29:00 Test Item Value Reference Range Comments SODIUM (BEAKER) (test 136 meq/L 136-145 pseh=419) POTASSIUM (BEAKER) (test 3.2 meq/L 3.5-5.1 ajud=430) CHLORIDE (BEAKER) (test 106 meq/L 98-107 vgls=144) CO2 (BEAKER) (test 21 meq/L 22-29 rhaa=171) BLOOD UREA NITROGEN 21 mg/dL 7-21 (BEAKER) (test fatj=565) CREATININE (BEAKER) (test 2.30 mg/dL 0.57-1.25 qbji=838) GLUCOSE RANDOM (BEAKER) 100 mg/dL 70-105 (test ggzm=627) CALCIUM (BEAKER) (test 7.9 mg/dL 8.4-10.2 hoqm=279) EGFR (BEAKER) (test 26 mL/min/1.73 sq m ESTIMATED GFR IS NOT ojyf=5736) ACCURATE CREATININE CLEARANCE IN PREDICTING GLOMERULAR FILTRATION RATE. ESTIMATED GFR IS NOT APPLICABLE FOR DIALYSIS PATIENTS. [id number] 10:16:00 Test Item Value Reference Range Comments PHOSPHORUS (BEAKER) (test qdcz=613) 1.9 mg/dL 2.3-4.7 [id number] 10:16:00 Test Item Value Reference Range Comments MAGNESIUM (BEAKER) (test ygnc=476) 2.0 mg/dL 1.6-2.6 HEPATIC FUNCTION [id number] 10:16:00 Test Item Value Reference Range Comments TOTAL PROTEIN (BEAKER) (test kffl=071) 6.6 gm/dL 6.0-8.3 ALBUMIN (BEAKER) (test eoab=5898) 3.3 g/dL 3.5-5.0 BILIRUBIN TOTAL (BEAKER) (test gcbk=141) 1.2 mg/dL 0.2-1.2 BILIRUBIN DIRECT (BEAKER) (test izzk=792) 0.6 mg/dL 0.1-0.5 ALKALINE PHOSPHATASE (BEAKER) (test utkr=021) 51 U/L 40-150 AST (SGOT) (BEAKER) (test fhuu=993) 30 U/L 5-34 ALT (SGPT) (BEAKER) (test tozr=093) 16 U/L 6-55 [id number] 06:55:00 Test Item Value Reference Range Comments PROTIME (BEAKER) (test eprc=309) 15.1 seconds 11.7-14.7 INR (BEAKER) (test jwmd=555) 1.2 <=5.9 PARTIAL THROMBOPLASTIN TIME (BEAKER) (test 31.5 seconds 22.5-36.0 vzyd=562) RECOMMENDED COUMADIN/WARFARIN INR THERAPY RANGESSTANDARD DOSE: 2.0 - 3.0 Includes: PROPHYLAXIS forvenous thrombosis, systemic embolization; TREATMENT for venous thrombosis and/or pulmonary embolus.HIGH RISK: Target INR is 2.5-3.5 for patients with mechanical heart valves.For paracentesisFor paracentesisCBC W/PLT COUNT & AUTO [id number] 06:51:00 Test Item Value Reference Range Comments WHITE BLOOD CELL COUNT (BEAKER) (test raxo=304) 6.0 K/ L 3.5-10.5 RED BLOOD CELL COUNT (BEAKER) (test oamh=833) 2.89 M/ L 3.93-5.22 HEMOGLOBIN (BEAKER) (test kycv=620) 8.9 GM/DL 11.2-15.7 HEMATOCRIT (BEAKER) (test wfml=408) 27.4 % 34.1-44.9 MEAN CORPUSCULAR VOLUME (BEAKER) (test rrye=613) 94.8 fL 79.4-94.8 MEAN CORPUSCULAR HEMOGLOBIN (BEAKER) (test 30.8 pg 25.6-32.2 zhdf=375) MEAN CORPUSCULAR HEMOGLOBIN CONC (BEAKER) (test 32.5 GM/DL 32.2-35.5 zkhb=814) RED CELL DISTRIBUTION WIDTH (BEAKER) (test 16.2 % 11.7-14.4 cjbf=182) PLATELET COUNT (BEAKER) (test lusv=258) 161 K/CU MM 150-450 MEAN PLATELET VOLUME (BEAKER) (test dffj=057) 9.8 fL 9.4-12.3 NUCLEATED RED BLOOD CELLS (BEAKER) (test 0 /100 WBC 0-0 qsfh=039) NEUTROPHILS RELATIVE PERCENT (BEAKER) (test 77 % nkjc=840) LYMPHOCYTES RELATIVE PERCENT (BEAKER) (test 18 % thxh=690) MONOCYTES RELATIVE PERCENT (BEAKER) (test 4 % ovwk=117) EOSINOPHILS RELATIVE PERCENT (BEAKER) (test 1 % pnxm=904) BASOPHILS RELATIVE PERCENT (BEAKER) (test 0 % cuvs=182) NEUTROPHILS ABSOLUTE COUNT (BEAKER) (test 4.64 K/ L 1.56-6.13 tdyi=171) LYMPHOCYTES ABSOLUTE COUNT (BEAKER) (test 1.10 K/ L 1.18-3.74 wliy=696) MONOCYTES ABSOLUTE COUNT (BEAKER) (test 0.23 K/ L 0.24-0.36 kvmf=708) EOSINOPHILS ABSOLUTE COUNT (BEAKER) (test 0.03 K/ L 0.04-0.36 onxt=608) BASOPHILS ABSOLUTE COUNT (BEAKER) (test 0.01 K/ L 0.01-0.08 lzxk=258) IMMATURE GRANULOCYTES-RELATIVE PERCENT (BEAKER) 1 % 0-1 (test ebfa=4959) BASIC METABOLIC [id number] 09:31:00 Test Item Value Reference Range Comments SODIUM (BEAKER) (test 139 meq/L 136-145 nrty=764) POTASSIUM (BEAKER) (test 3.5 meq/L 3.5-5.1 tzzt=798) CHLORIDE (BEAKER) (test 106 meq/L 98-107 xvfw=145) CO2 (BEAKER) (test 23 meq/L 22-29 bwkd=578) BLOOD UREA NITROGEN 20 mg/dL 7-21 (BEAKER) (test bxnu=191) CREATININE (BEAKER) (test 2.29 mg/dL 0.57-1.25 pawt=780) GLUCOSE RANDOM (BEAKER) 130 mg/dL 70-105 (test uqiw=612) CALCIUM (BEAKER) (test 7.8 mg/dL 8.4-10.2 ipda=367) EGFR (BEAKER) (test 26 mL/min/1.73 sq m ESTIMATED GFR IS NOT hmhh=7226) ACCURATE CREATININE CLEARANCE IN PREDICTING GLOMERULAR FILTRATION RATE. ESTIMATED GFR IS NOT APPLICABLE FOR DIALYSIS PATIENTS. COMPREHENSIVE METABOLIC [id number] 09:31:00 Test Item Value Reference Range Comments TOTAL PROTEIN (BEAKER) 5.9 gm/dL 6.0-8.3 (test juza=532) ALBUMIN (BEAKER) (test 3.2 g/dL 3.5-5.0 keol=4611) ALKALINE PHOSPHATASE 46 U/L 40-150 (BEAKER) (test zmaf=373) BILIRUBIN TOTAL (BEAKER) 0.8 mg/dL 0.2-1.2 (test gicc=306) SODIUM (BEAKER) (test 139 meq/L 136-145 eniy=064) POTASSIUM (BEAKER) (test 3.5 meq/L 3.5-5.1 reov=045) CHLORIDE (BEAKER) (test 106 meq/L 98-107 sssv=039) CO2 (BEAKER) (test 23 meq/L 22-29 ypgp=472) BLOOD UREA NITROGEN 20 mg/dL 7-21 (BEAKER) (test xnke=286) CREATININE (BEAKER) (test 2.29 mg/dL 0.57-1.25 onpy=260) GLUCOSE RANDOM (BEAKER) 130 mg/dL 70-105 (test frtj=046) CALCIUM (BEAKER) (test 7.8 mg/dL 8.4-10.2 tlhp=756) AST (SGOT) (BEAKER) (test 32 U/L 5-34 fiav=956) ALT (SGPT) (BEAKER) (test 16 U/L 6-55 hihp=044) EGFR (BEAKER) (test 26 mL/min/1.73 sq m ESTIMATED GFR IS NOT glsj=8646) ACCURATE CREATININE CLEARANCE IN PREDICTING GLOMERULAR FILTRATION RATE. ESTIMATED GFR IS NOT APPLICABLE FOR DIALYSIS PATIENTS. [id number] 09:30:00 Test Item Value Reference Range Comments PHOSPHORUS (BEAKER) (test yizx=311) 2.5 mg/dL 2.3-4.7 URIC [id number] 09:30:00 Test Item Value Reference Range Comments URIC ACID (BEAKER) (test mvuk=585) 8.7 mg/dL 2.6-7.2 HEPATIC FUNCTION [id number] 09:30:00 Test Item Value Reference Range Comments TOTAL PROTEIN (BEAKER) (test jiey=208) 5.9 gm/dL 6.0-8.3 ALBUMIN (BEAKER) (test mwmc=2999) 3.2 g/dL 3.5-5.0 BILIRUBIN TOTAL (BEAKER) (test novb=178) 0.8 mg/dL 0.2-1.2 BILIRUBIN DIRECT (BEAKER) (test njpm=705) 0.5 mg/dL 0.1-0.5 ALKALINE PHOSPHATASE (BEAKER) (test fsfq=509) 46 U/L 40-150 AST (SGOT) (BEAKER) (test vogb=091) 32 U/L 5-34 ALT (SGPT) (BEAKER) (test rxnl=087) 16 U/L 6-55 CALCIUM, [id number] 08:41:00 Test Item Value Reference Range Comments CALCIUM IONIZED (BEAKER) (test oovc=608) 0.92 mmol/L 1.12-1.27 PH, BLOOD (BEAKER) (test pgia=4646) 7.41 [id number] 08:38:00 Test Item Value Reference Range Comments MAGNESIUM (BEAKER) (test knub=886) 1.8 mg/dL 1.6-2.6 CBC W/PLT COUNT & AUTO [id number] 08:34:00 Test Item Value Reference Range Comments WHITE BLOOD CELL COUNT (BEAKER) (test vbtd=145) 6.1 K/ L 3.5-10.5 RED BLOOD CELL COUNT (BEAKER) (test oxrn=423) 2.29 M/ L 3.93-5.22 HEMOGLOBIN (BEAKER) (test ywfb=861) 7.1 GM/DL 11.2-15.7 HEMATOCRIT (BEAKER) (test cmgn=613) 22.6 % 34.1-44.9 MEAN CORPUSCULAR VOLUME (BEAKER) (test asdb=041) 98.7 fL 79.4-94.8 MEAN CORPUSCULAR HEMOGLOBIN (BEAKER) (test 31.0 pg 25.6-32.2 ftsf=546) MEAN CORPUSCULAR HEMOGLOBIN CONC (BEAKER) (test 31.4 GM/DL 32.2-35.5 hpou=431) RED CELL DISTRIBUTION WIDTH (BEAKER) (test 13.9 % 11.7-14.4 tgnj=857) PLATELET COUNT (BEAKER) (test zizw=850) 193 K/CU MM 150-450 MEAN PLATELET VOLUME (BEAKER) (test ogbh=569) 9.0 fL 9.4-12.3 NUCLEATED RED BLOOD CELLS (BEAKER) (test 0 /100 WBC 0-0 evsz=996) NEUTROPHILS RELATIVE PERCENT (BEAKER) (test 80 % xtmr=043) LYMPHOCYTES RELATIVE PERCENT (BEAKER) (test 16 % nhbk=322) MONOCYTES RELATIVE PERCENT (BEAKER) (test 4 % lbhm=616) EOSINOPHILS RELATIVE PERCENT (BEAKER) (test 0 % olrm=960) BASOPHILS RELATIVE PERCENT (BEAKER) (test 0 % mxdj=681) NEUTROPHILS ABSOLUTE COUNT (BEAKER) (test 4.88 K/ L 1.56-6.13 dcib=001) LYMPHOCYTES ABSOLUTE COUNT (BEAKER) (test 0.95 K/ L 1.18-3.74 skwe=247) MONOCYTES ABSOLUTE COUNT (BEAKER) (test 0.23 K/ L 0.24-0.36 food=757) EOSINOPHILS ABSOLUTE COUNT (BEAKER) (test 0.00 K/ L 0.04-0.36 ahmi=525) BASOPHILS ABSOLUTE COUNT (BEAKER) (test 0.01 K/ L 0.01-0.08 udtz=275) IMMATURE GRANULOCYTES-RELATIVE PERCENT (BEAKER) 1 % 0-1 (test ctsa=7827) C. DIFFICILE GDH [id number] 19:27:00 Test Item Value Reference Range Comments CDT TOXIN (test Negative Negative yqre=[id number]) CDT GDH ANTIGEN (test Negative Negative No indication of Clostridium rvcg=[id number]) difficile infection and no colonization. Discontinue enteric isolation and therapy. Testing performed by Prifloat Rapid Cassette Assay. For GDH, published sensitivity of the assay is 98.7% compared to cytotoxicity testing. For Toxin AB, published sensitivity is 87.8% and specificity 99.4% compared to cytotoxicity testing.Verification of kit performance was done by the [facility] Microbiology Lab prior to clinical use.CBC W/PLT COUNT & AUTO [id number] 13:33:00 Test Item Value Reference Range Comments WHITE BLOOD CELL COUNT (BEAKER) (test chno=504) 7.3 K/ L 3.5-10.5 RED BLOOD CELL COUNT (BEAKER) (test olfp=480) 2.43 M/ L 3.93-5.22 HEMOGLOBIN (BEAKER) (test mebq=180) 7.6 GM/DL 11.2-15.7 HEMATOCRIT (BEAKER) (test dfjo=028) 24.4 % 34.1-44.9 MEAN CORPUSCULAR VOLUME (BEAKER) (test esrx=105) 100.4 fL 79.4-94.8 MEAN CORPUSCULAR HEMOGLOBIN (BEAKER) (test 31.3 pg 25.6-32.2 pigr=879) MEAN CORPUSCULAR HEMOGLOBIN CONC (BEAKER) (test 31.1 GM/DL 32.2-35.5 muso=272) RED CELL DISTRIBUTION WIDTH (BEAKER) (test 14.1 % 11.7-14.4 occq=331) PLATELET COUNT (BEAKER) (test refe=886) 214 K/CU MM 150-450 MEAN PLATELET VOLUME (BEAKER) (test mimr=837) 8.7 fL 9.4-12.3 NUCLEATED RED BLOOD CELLS (BEAKER) (test 0 /100 WBC 0-0 oskx=933) (MANUAL DIFFERENTIAL)[id number] 13:33:00 Test Item Value Reference Range Comments NEUTROPHILS - REL (DIFF) (BEAKER) (test bzys=5345) 74 % LYMPHOCYTES - REL (DIFF) (BEAKER) (test lovf=1998) 14 % MONOCYTES - REL (DIFF) (BEAKER) (test osqg=6798) 10 % EOSINOPHILS - REL (DIFF) (BEAKER) (test gsqr=3893) 1 % BASOPHILS - REL (DIFF) (BEAKER) (test pjxe=0428) 1 % NEUTROPHILS - ABS (DIFF) (BEAKER) (test mdgu=4918) 5.40 K/ L 1.80-8.00 LYMPHOCYTES - ABS (DIFF) (BEAKER) (test vmwa=5752) 1.02 K/ L 1.48-4.50 MONOCYTES - ABS (DIFF) (BEAKER) (test ojra=0513) 0.73 K/ L 0.00-1.30 EOSINOPHILS - ABS (DIFF) (BEAKER) (test bwsj=0700) 0.07 K/ L 0.00-0.50 BASOPHILS - ABS (DIFF) (BEAKER) (test srie=3395) 0.07 K/ L 0.00-0.20 TOTAL COUNTED (BEAKER) (test ynds=7210) 100 WBC MORPHOLOGY (BEAKER) (test kqjm=187) Normal PLT MORPHOLOGY (BEAKER) (test jqax=885) Normal RBC MORPHOLOGY (BEAKER) (test jghh=875) Normal CALCIUM, [id number] 08:55:00 Test Item Value Reference Range Comments CALCIUM IONIZED (BEAKER) (test wllv=588) 0.81 mmol/L 1.12-1.27 PH, BLOOD (BEAKER) (test wgtv=4110) 7.38 COMPREHENSIVE METABOLIC [id number] 07:16:00 Test Item Value Reference Range Comments TOTAL PROTEIN (BEAKER) 6.3 gm/dL 6.0-8.3 (test bxrj=352) ALBUMIN (BEAKER) (test 3.5 g/dL 3.5-5.0 jgbz=7512) ALKALINE PHOSPHATASE 39 U/L 40-150 (BEAKER) (test oqub=469) BILIRUBIN TOTAL (BEAKER) 1.3 mg/dL 0.2-1.2 (test qwma=718) SODIUM (BEAKER) (test 140 meq/L 136-145 rodj=001) POTASSIUM (BEAKER) (test 3.6 meq/L 3.5-5.1 pcum=417) CHLORIDE (BEAKER) (test 109 meq/L 98-107 sglg=413) CO2 (BEAKER) (test 19 meq/L 22-29 dtep=014) BLOOD UREA NITROGEN 16 mg/dL 7-21 (BEAKER) (test idts=742) CREATININE (BEAKER) (test 2.52 mg/dL 0.57-1.25 vsii=995) GLUCOSE RANDOM (BEAKER) 116 mg/dL 70-105 (test ozam=515) CALCIUM (BEAKER) (test 8.4 mg/dL 8.4-10.2 wtnh=147) AST (SGOT) (BEAKER) (test 25 U/L 5-34 dvln=793) ALT (SGPT) (BEAKER) (test 13 U/L 6-55 alfy=326) EGFR (BEAKER) (test 23 mL/min/1.73 sq m ESTIMATED GFR IS NOT ogmk=3213) ACCURATE CREATININE CLEARANCE IN PREDICTING GLOMERULAR FILTRATION RATE. ESTIMATED GFR IS NOT APPLICABLE FOR DIALYSIS PATIENTS. BASIC METABOLIC [id number] 07:15:00 Test Item Value Reference Range Comments SODIUM (BEAKER) (test 140 meq/L 136-145 ceek=513) POTASSIUM (BEAKER) (test 3.6 meq/L 3.5-5.1 npcn=716) CHLORIDE (BEAKER) (test 109 meq/L 98-107 mlef=133) CO2 (BEAKER) (test 19 meq/L 22-29 gvuw=874) BLOOD UREA NITROGEN 16 mg/dL 7-21 (BEAKER) (test dvro=281) CREATININE (BEAKER) (test 2.52 mg/dL 0.57-1.25 jlxj=694) GLUCOSE RANDOM (BEAKER) 116 mg/dL 70-105 (test teux=829) CALCIUM (BEAKER) (test 8.4 mg/dL 8.4-10.2 pdvr=021) EGFR (BEAKER) (test 23 mL/min/1.73 sq m ESTIMATED GFR IS NOT uffr=4732) ACCURATE CREATININE CLEARANCE IN PREDICTING GLOMERULAR FILTRATION RATE. ESTIMATED GFR IS NOT APPLICABLE FOR DIALYSIS PATIENTS. [id number] 07:10:00 Test Item Value Reference Range Comments PHOSPHORUS (BEAKER) (test urcl=906) 1.9 mg/dL 2.3-4.7 [id number] 07:10:00 Test Item Value Reference Range Comments MAGNESIUM (BEAKER) (test qlaj=011) 1.9 mg/dL 1.6-2.6 HEPATIC FUNCTION [id number] 07:10:00 Test Item Value Reference Range Comments TOTAL PROTEIN (BEAKER) (test yuvy=530) 6.3 gm/dL 6.0-8.3 ALBUMIN (BEAKER) (test nnuv=1980) 3.5 g/dL 3.5-5.0 BILIRUBIN TOTAL (BEAKER) (test lknx=403) 1.3 mg/dL 0.2-1.2 BILIRUBIN DIRECT (BEAKER) (test nesz=755) 0.8 mg/dL 0.1-0.5 ALKALINE PHOSPHATASE (BEAKER) (test zojw=606) 39 U/L 40-150 AST (SGOT) (BEAKER) (test pipg=419) 25 U/L 5-34 ALT (SGPT) (BEAKER) (test odln=799) 13 U/L 6-55 RAD, CHEST, 1 VIEW, NON [id number] 21:33:00Reason for exam:->PICC LINE TIP VERIFICATIONShould this [...] MDReport Verified Date/Time: 02/15 21:33:22 Reading Location: [address] Reading Room CBC W/PLT COUNT & AUTO [id number] 11:37:00 Test Item Value Reference Range Comments WHITE BLOOD CELL COUNT (BEAKER) (test ldpt=700) 7.1 K/ L 3.5-10.5 RED BLOOD CELL COUNT (BEAKER) (test movp=744) 2.43 M/ L 3.93-5.22 HEMOGLOBIN (BEAKER) (test tvpw=203) 7.7 GM/DL 11.2-15.7 HEMATOCRIT (BEAKER) (test euyy=502) 24.3 % 34.1-44.9 MEAN CORPUSCULAR VOLUME (BEAKER) (test ggvb=154) 100.0 fL 79.4-94.8 MEAN CORPUSCULAR HEMOGLOBIN (BEAKER) (test 31.7 pg 25.6-32.2 onlk=797) MEAN CORPUSCULAR HEMOGLOBIN CONC (BEAKER) (test 31.7 GM/DL 32.2-35.5 bndn=311) RED CELL DISTRIBUTION WIDTH (BEAKER) (test 13.8 % 11.7-14.4 govf=270) PLATELET COUNT (BEAKER) (test bxjw=816) 216 K/CU MM 150-450 MEAN PLATELET VOLUME (BEAKER) (test uvkr=830) 8.8 fL 9.4-12.3 NUCLEATED RED BLOOD CELLS (BEAKER) (test 0 /100 WBC 0-0 rofu=132) (CELLAVISION MANUAL DIFF)[id number] 11:37:00 Test Item Value Reference Range Comments NEUTROPHILS - REL (CELLAVISION)(BEAKER) (test 75 % jvao=5641) LYMPHOCYTES - REL (CELLAVISION)(BEAKER) (test 20 % aczn=6598) MONOCYTES - REL (CELLAVISION)(BEAKER) (test 4 % qoqe=8244) ATYPICAL LYMPHOCYTES - REL (CELLAVISION)(BEAKER) 1 % 0-0 (test fykz=3620) NEUTROPHILS - ABS (CELLAVISION)(BEAKER) (test 5.33 K/ul 1.56-6.13 ypbn=9185) LYMPHOCYTES - ABS (CELLAVISION)(BEAKER) (test 1.42 K/ul 1.18-3.74 ioxy=4518) MONOCYTES - ABS (CELLAVISION)(BEAKER) (test 0.28 K/uL 0.24-0.36 qcng=9230) ATYPICAL LYMPHOCYTES - ABS (CELLAVISION)(BEAKER) 0.07 K/uL 0.00-0.00 (test unxi=7258) TOTAL COUNTED (BEAKER) (test vsur=7899) 100 WBC MORPHOLOGY (BEAKER) (test cnkz=214) Normal LARGE PLT(BEAKER) (test swyk=1884) Present POLYCHROMATOPHILLIC RBCS(BEAKER) (test btnj=293) 1+ few HYPOCHROMIA (BEAKER) (test antb=753) 1+ few ARTIFACT (CELLAVISION)(BEAKER) (test tyrq=5252) Present PLATELET CONCENTRATION (CELLAVISION)(BEAKER) (test Adequate dvus=2000) Received comment: User comments: Slide comments:CREATININE, RANDOM [id number] 08:13:00 Test Item Value Reference Range Comments CREATININE URINE (BEAKER) (test lswe=237) 166.6 mg/dL Reference Range: No NormalsPROTEIN, RANDOM [id number] 07:32:00 Test Item Value Reference Range Comments PROTEIN, URINE (BEAKER) (test afxp=1279) 58 mg/dL 0-14 CALCIUM, [id number] 07:05:00 Test Item Value Reference Range Comments CALCIUM IONIZED (BEAKER) (test fjsl=899) 0.72 mmol/L 1.12-1.27 PH, BLOOD (BEAKER) (test eowk=4632) 7.50 CBC W/PLT COUNT & AUTO [id number] 06:47:00 Test Item Value Reference Range Comments WHITE BLOOD CELL COUNT (BEAKER) (test uabp=908) 7.2 K/ L 3.5-10.5 RED BLOOD CELL COUNT (BEAKER) (test ejzw=279) 2.42 M/ L 3.93-5.22 HEMOGLOBIN (BEAKER) (test ssrb=102) 7.5 GM/DL 11.2-15.7 HEMATOCRIT (BEAKER) (test kqzh=389) 24.2 % 34.1-44.9 MEAN CORPUSCULAR VOLUME (BEAKER) (test dazh=803) 100.0 fL 79.4-94.8 MEAN CORPUSCULAR HEMOGLOBIN (BEAKER) (test 31.0 pg 25.6-32.2 ovay=816) MEAN CORPUSCULAR HEMOGLOBIN CONC (BEAKER) (test 31.0 GM/DL 32.2-35.5 qzow=311) RED CELL DISTRIBUTION WIDTH (BEAKER) (test 14.0 % 11.7-14.4 ghds=639) PLATELET COUNT (BEAKER) (test miha=560) 220 K/CU MM 150-450 MEAN PLATELET VOLUME (BEAKER) (test bkac=574) 8.5 fL 9.4-12.3 NUCLEATED RED BLOOD CELLS (BEAKER) (test 0 /100 WBC 0-0 woar=678) NEUTROPHILS RELATIVE PERCENT (BEAKER) (test 69 % reca=575) LYMPHOCYTES RELATIVE PERCENT (BEAKER) (test 22 % paul=364) MONOCYTES RELATIVE PERCENT (BEAKER) (test 7 % bkhq=509) EOSINOPHILS RELATIVE PERCENT (BEAKER) (test 1 % twkl=432) BASOPHILS RELATIVE PERCENT (BEAKER) (test 1 % keqy=812) NEUTROPHILS ABSOLUTE COUNT (BEAKER) (test 4.98 K/ L 1.56-6.13 iwgg=161) LYMPHOCYTES ABSOLUTE COUNT (BEAKER) (test 1.60 K/ L 1.18-3.74 ayot=136) MONOCYTES ABSOLUTE COUNT (BEAKER) (test 0.53 K/ L 0.24-0.36 zpns=139) EOSINOPHILS ABSOLUTE COUNT (BEAKER) (test 0.04 K/ L 0.04-0.36 zmay=676) BASOPHILS ABSOLUTE COUNT (BEAKER) (test 0.04 K/ L 0.01-0.08 mzwe=311) IMMATURE GRANULOCYTES-RELATIVE PERCENT (BEAKER) 0 % 0-1 (test jwrk=7850) COMPREHENSIVE METABOLIC [id number] 06:39:00 Test Item Value Reference Range Comments TOTAL PROTEIN (BEAKER) 6.4 gm/dL 6.0-8.3 (test jkda=661) ALBUMIN (BEAKER) (test 3.6 g/dL 3.5-5.0 pntk=4109) ALKALINE PHOSPHATASE 32 U/L 40-150 (BEAKER) (test wcfi=227) BILIRUBIN TOTAL (BEAKER) 1.4 mg/dL 0.2-1.2 (test lmql=496) SODIUM (BEAKER) (test 140 meq/L 136-145 nyxc=300) POTASSIUM (BEAKER) (test 3.8 meq/L 3.5-5.1 yvkb=831) CHLORIDE (BEAKER) (test 110 meq/L 98-107 wykf=080) CO2 (BEAKER) (test 19 meq/L 22-29 tuzu=317) BLOOD UREA NITROGEN 15 mg/dL 7-21 (BEAKER) (test msko=695) CREATININE (BEAKER) (test 2.30 mg/dL 0.57-1.25 kwxy=912) GLUCOSE RANDOM (BEAKER) 102 mg/dL 70-105 (test yocd=778) CALCIUM (BEAKER) (test 8.0 mg/dL 8.4-10.2 wsox=780) AST (SGOT) (BEAKER) (test 17 U/L 5-34 bmxm=194) ALT (SGPT) (BEAKER) (test 9 U/L 6-55 qbaq=562) EGFR (BEAKER) (test 26 mL/min/1.73 sq m ESTIMATED GFR IS NOT fjoh=2585) ACCURATE CREATININE CLEARANCE IN PREDICTING GLOMERULAR FILTRATION RATE. ESTIMATED GFR IS NOT APPLICABLE FOR DIALYSIS PATIENTS. HEPATIC FUNCTION [id number] 06:23:00 Test Item Value Reference Range Comments TOTAL PROTEIN (BEAKER) (test ifym=589) 6.4 gm/dL 6.0-8.3 ALBUMIN (BEAKER) (test xeau=5162) 3.6 g/dL 3.5-5.0 BILIRUBIN TOTAL (BEAKER) (test nmbq=419) 1.3 mg/dL 0.2-1.2 BILIRUBIN DIRECT (BEAKER) (test jmdb=609) 0.7 mg/dL 0.1-0.5 ALKALINE PHOSPHATASE (BEAKER) (test ceef=559) 34 U/L 40-150 AST (SGOT) (BEAKER) (test inli=377) 19 U/L 5-34 ALT (SGPT) (BEAKER) (test sdyg=228) 8 U/L 6-55 [id number] 06:22:00 Test Item Value Reference Range Comments PHOSPHORUS (BEAKER) (test pnzs=478) 2.3 mg/dL 2.3-4.7 [id number] 06:22:00 Test Item Value Reference Range Comments MAGNESIUM (BEAKER) (test zmht=698) 2.2 mg/dL 1.6-2.6 HEPATIC FUNCTION [id number] 06:22:00 Test Item Value Reference Range Comments TOTAL PROTEIN (BEAKER) (test ofuh=481) 6.4 gm/dL 6.0-8.3 ALBUMIN (BEAKER) (test dgtx=2011) 3.6 g/dL 3.5-5.0 BILIRUBIN TOTAL (BEAKER) (test spol=459) 1.4 mg/dL 0.2-1.2 BILIRUBIN DIRECT (BEAKER) (test gsyt=737) 0.7 mg/dL 0.1-0.5 ALKALINE PHOSPHATASE (BEAKER) (test pybg=278) 32 U/L 40-150 AST (SGOT) (BEAKER) (test jiwv=633) 17 U/L 5-34 ALT (SGPT) (BEAKER) (test wunu=109) 9 U/L 6-55 BLOOD [id number] 20:01:00 Test Item Value Reference Range Comments CULTURE (BEAKER) (test eyfz=4803) No growth in 5 days HEMOGLOBIN AND [id number] 13:02:00 Test Item Value Reference Range Comments HEMOGLOBIN (BEAKER) (test xsox=516) 8.1 GM/DL 11.2-15.7 HEMATOCRIT (BEAKER) (test dyvb=304) 25.7 % 34.1-44.9 ANTI-MITOCHONDRIAL AB, REFLEX TO [id number] 12:19:00 Test Item Value Reference Range Comments SCAN RESULT (test otxc=[id number]) [id number] 07:43:00 Test Item Value Reference Range Comments PHOSPHORUS (BEAKER) (test guvr=202) 1.3 mg/dL 2.3-4.7 CALCIUM, [id number] 06:25:00 Test Item Value Reference Range Comments CALCIUM IONIZED (BEAKER) (test fcas=446) 1.05 mmol/L 1.12-1.27 PH, BLOOD (BEAKER) (test afob=0927) 7.44 COMPREHENSIVE METABOLIC [id number] 06:24:00 Test Item Value Reference Range Comments TOTAL PROTEIN (BEAKER) 6.3 gm/dL 6.0-8.3 (test shun=294) ALBUMIN (BEAKER) (test 3.8 g/dL 3.5-5.0 gliq=5178) ALKALINE PHOSPHATASE 31 U/L 40-150 (BEAKER) (test zxxq=971) BILIRUBIN TOTAL (BEAKER) 1.3 mg/dL 0.2-1.2 (test keox=929) SODIUM (BEAKER) (test 141 meq/L 136-145 tzjb=709) POTASSIUM (BEAKER) (test 3.5 meq/L 3.5-5.1 gjmh=527) CHLORIDE (BEAKER) (test 110 meq/L 98-107 ltmv=971) CO2 (BEAKER) (test 22 meq/L 22-29 lrne=653) BLOOD UREA NITROGEN 13 mg/dL 7-21 (BEAKER) (test pubr=086) CREATININE (BEAKER) (test 2.36 mg/dL 0.57-1.25 clik=259) GLUCOSE RANDOM (BEAKER) 108 mg/dL 70-105 (test knoc=443) CALCIUM (BEAKER) (test 8.2 mg/dL 8.4-10.2 gzwg=793) AST (SGOT) (BEAKER) (test 14 U/L 5-34 ufhp=339) ALT (SGPT) (BEAKER) (test 6 U/L 6-55 rqli=329) EGFR (BEAKER) (test 25 mL/min/1.73 sq m ESTIMATED GFR IS NOT uyqm=1805) ACCURATE CREATININE CLEARANCE IN PREDICTING GLOMERULAR FILTRATION RATE. ESTIMATED GFR IS NOT APPLICABLE FOR DIALYSIS PATIENTS. [id number] 06:17:00 Test Item Value Reference Range Comments MAGNESIUM (BEAKER) (test tkkr=099) 2.2 mg/dL 1.6-2.6 CBC W/PLT COUNT & AUTO [id number] 05:33:00 Test Item Value Reference Range Comments WHITE BLOOD CELL COUNT (BEAKER) (test koxp=048) 5.8 K/ L 3.5-10.5 RED BLOOD CELL COUNT (BEAKER) (test dqdh=542) 2.22 M/ L 3.93-5.22 HEMOGLOBIN (BEAKER) (test ngmu=005) 7.0 GM/DL 11.2-15.7 HEMATOCRIT (BEAKER) (test hwiw=977) 22.5 % 34.1-44.9 MEAN CORPUSCULAR VOLUME (BEAKER) (test xbwy=457) 101.4 fL 79.4-94.8 MEAN CORPUSCULAR HEMOGLOBIN (BEAKER) (test 31.5 pg 25.6-32.2 rync=602) MEAN CORPUSCULAR HEMOGLOBIN CONC (BEAKER) (test 31.1 GM/DL 32.2-35.5 naui=599) RED CELL DISTRIBUTION WIDTH (BEAKER) (test 13.6 % 11.7-14.4 xjwo=017) PLATELET COUNT (BEAKER) (test pxij=681) 169 K/CU MM 150-450 MEAN PLATELET VOLUME (BEAKER) (test xnum=989) 8.5 fL 9.4-12.3 NUCLEATED RED BLOOD CELLS (BEAKER) (test 0 /100 WBC 0-0 rpss=032) NEUTROPHILS RELATIVE PERCENT (BEAKER) (test 67 % hjke=435) LYMPHOCYTES RELATIVE PERCENT (BEAKER) (test 22 % nquk=829) MONOCYTES RELATIVE PERCENT (BEAKER) (test 9 % guig=154) EOSINOPHILS RELATIVE PERCENT (BEAKER) (test 1 % gszy=299) BASOPHILS RELATIVE PERCENT (BEAKER) (test 1 % piza=366) NEUTROPHILS ABSOLUTE COUNT (BEAKER) (test 3.84 K/ L 1.56-6.13 lmhp=134) LYMPHOCYTES ABSOLUTE COUNT (BEAKER) (test 1.28 K/ L 1.18-3.74 kyqp=857) MONOCYTES ABSOLUTE COUNT (BEAKER) (test 0.50 K/ L 0.24-0.36 sblu=291) EOSINOPHILS ABSOLUTE COUNT (BEAKER) (test 0.07 K/ L 0.04-0.36 sbqe=167) BASOPHILS ABSOLUTE COUNT (BEAKER) (test 0.06 K/ L 0.01-0.08 epjw=562) IMMATURE GRANULOCYTES-RELATIVE PERCENT (BEAKER) 0 % 0-1 (test nffs=5861) RAD, CHEST, 1 VIEW, NON [id number] 12:56:00Reason for exam:->edemaShould this be performed at [...] MDReport Verified Date/Time: 2018 12:56:07 Reading Location: [facility] Mammo Reading Room [id number] 11:09: 00Medical Cytology Report Case: [id number] Authorizing Provider: Charles Jaimes NP Collected : 02/09/2019 1600 Ordering Location: [place] [address] ICU Received: 02/10/2019 0805 Pathologist: Ayesha Vance MD Specimen: Peritoneal Fluid PERITONEAL FLUID (CYTOSPINS AND CELL BLOCK): - SCATTERED ATYPICAL CELLS, COMPATIBLE WITH METASTATIC ADENOCARCINOMA (SEE COMMENT) Signing Pathologist Direct Phone Line: [phone] signed by Ayesha Vance MD on 02/13/2019 at 11:09 AMThe patient has a recent sample of peritoneal fluid ([id number]) with metastatic adenocarcinoma. In the current sample , atypical cells with similar features are seen.Please see the prior sample (C19 -834) for additional evaluation and information. 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, Department of Pathology, [address] [place] [address], [facility], [address] [place] [address], [facility], [facility] of [facility], [address] [place] [address], b-TYPE NATRIURETIC FACTOR (BNP)2019-02-13 10:48:00 Test Item Value Reference Range Comments B-TYPE NATRIURETIC PEPTIDE (BEAKER) (test 107 pg/mL 0-100 hrsv=732) COMPREHENSIVE METABOLIC [id number] 10:41:00 Test Item Value Reference Range Comments TOTAL PROTEIN (BEAKER) 6.8 gm/dL 6.0-8.3 (test ozus=841) ALBUMIN (BEAKER) (test 4.2 g/dL 3.5-5.0 afvn=8222) ALKALINE PHOSPHATASE 35 U/L 40-150 (BEAKER) (test mmpo=486) BILIRUBIN TOTAL (BEAKER) 1.3 mg/dL 0.2-1.2 (test dsvd=391) SODIUM (BEAKER) (test 143 meq/L 136-145 bgnj=524) POTASSIUM (BEAKER) (test 3.3 meq/L 3.5-5.1 blmn=286) CHLORIDE (BEAKER) (test 111 meq/L 98-107 nqjr=624) CO2 (BEAKER) (test 20 meq/L 22-29 bveb=728) BLOOD UREA NITROGEN 12 mg/dL 7-21 (BEAKER) (test virb=291) CREATININE (BEAKER) (test 2.68 mg/dL 0.57-1.25 pmfv=439) GLUCOSE RANDOM (BEAKER) 97 mg/dL 70-105 (test uzfv=505) CALCIUM (BEAKER) (test 8.6 mg/dL 8.4-10.2 bmvk=151) AST (SGOT) (BEAKER) (test 13 U/L 5-34 bffa=381) ALT (SGPT) (BEAKER) (test 6 U/L 6-55 apin=092) EGFR (BEAKER) (test 22 mL/min/1.73 sq m ESTIMATED GFR IS NOT iotw=9626) ACCURATE CREATININE CLEARANCE IN PREDICTING GLOMERULAR FILTRATION RATE. ESTIMATED GFR IS NOT APPLICABLE FOR DIALYSIS PATIENTS. BASIC METABOLIC [id number] 10:41:00 Test Item Value Reference Range Comments SODIUM (BEAKER) (test 143 meq/L 136-145 rnin=199) POTASSIUM (BEAKER) (test 3.3 meq/L 3.5-5.1 ulel=091) CHLORIDE (BEAKER) (test 111 meq/L 98-107 mkzu=332) CO2 (BEAKER) (test 20 meq/L 22-29 whcp=959) BLOOD UREA NITROGEN 12 mg/dL 7-21 (BEAKER) (test fhch=337) CREATININE (BEAKER) (test 2.68 mg/dL 0.57-1.25 dopu=431) GLUCOSE RANDOM (BEAKER) 97 mg/dL 70-105 (test naod=321) CALCIUM (BEAKER) (test 8.6 mg/dL 8.4-10.2 inrz=169) EGFR (BEAKER) (test 22 mL/min/1.73 sq m ESTIMATED GFR IS NOT jpgu=5613) ACCURATE CREATININE CLEARANCE IN PREDICTING GLOMERULAR FILTRATION RATE. ESTIMATED GFR IS NOT APPLICABLE FOR DIALYSIS PATIENTS. CBC W/PLT COUNT & AUTO [id number] 10:37:00 Test Item Value Reference Range Comments WHITE BLOOD CELL COUNT (BEAKER) (test ysgm=363) 6.0 K/ L 3.5-10.5 RED BLOOD CELL COUNT (BEAKER) (test wlxa=263) 2.33 M/ L 3.93-5.22 HEMOGLOBIN (BEAKER) (test hetu=390) 7.6 GM/DL 11.2-15.7 HEMATOCRIT (BEAKER) (test whlc=018) 23.2 % 34.1-44.9 MEAN CORPUSCULAR VOLUME (BEAKER) (test ctbi=158) 99.6 fL 79.4-94.8 MEAN CORPUSCULAR HEMOGLOBIN (BEAKER) (test 32.6 pg 25.6-32.2 daks=783) MEAN CORPUSCULAR HEMOGLOBIN CONC (BEAKER) (test 32.8 GM/DL 32.2-35.5 jwnz=378) RED CELL DISTRIBUTION WIDTH (BEAKER) (test 13.6 % 11.7-14.4 vkak=776) PLATELET COUNT (BEAKER) (test hvds=171) 210 K/CU MM 150-450 MEAN PLATELET VOLUME (BEAKER) (test asob=394) 8.9 fL 9.4-12.3 NUCLEATED RED BLOOD CELLS (BEAKER) (test 0 /100 WBC 0-0 zldy=286) NEUTROPHILS RELATIVE PERCENT (BEAKER) (test 69 % yykb=332) LYMPHOCYTES RELATIVE PERCENT (BEAKER) (test 23 % zzbu=936) MONOCYTES RELATIVE PERCENT (BEAKER) (test 6 % ktqw=004) EOSINOPHILS RELATIVE PERCENT (BEAKER) (test 1 % xrfq=854) BASOPHILS RELATIVE PERCENT (BEAKER) (test 1 % yhay=362) NEUTROPHILS ABSOLUTE COUNT (BEAKER) (test 4.14 K/ L 1.56-6.13 yzfe=228) LYMPHOCYTES ABSOLUTE COUNT (BEAKER) (test 1.38 K/ L 1.18-3.74 vqdr=283) MONOCYTES ABSOLUTE COUNT (BEAKER) (test 0.35 K/ L 0.24-0.36 pdfw=369) EOSINOPHILS ABSOLUTE COUNT (BEAKER) (test 0.06 K/ L 0.04-0.36 fcfj=714) BASOPHILS ABSOLUTE COUNT (BEAKER) (test 0.05 K/ L 0.01-0.08 cybv=440) IMMATURE GRANULOCYTES-RELATIVE PERCENT (BEAKER) 0 % 0-1 (test bgww=8756) [id number] 10:34:00 Test Item Value Reference Range Comments PHOSPHORUS (BEAKER) (test efun=633) 1.8 mg/dL 2.3-4.7 [id number] 10:34:00 Test Item Value Reference Range Comments MAGNESIUM (BEAKER) (test svwa=279) 2.4 mg/dL 1.6-2.6 HEPATIC FUNCTION [id number] 10:34:00 Test Item Value Reference Range Comments TOTAL PROTEIN (BEAKER) (test syjz=211) 6.8 gm/dL 6.0-8.3 ALBUMIN (BEAKER) (test pdyu=6468) 4.2 g/dL 3.5-5.0 BILIRUBIN TOTAL (BEAKER) (test ivcd=140) 1.3 mg/dL 0.2-1.2 BILIRUBIN DIRECT (BEAKER) (test irwu=276) 0.7 mg/dL 0.1-0.5 ALKALINE PHOSPHATASE (BEAKER) (test usvy=690) 35 U/L 40-150 AST (SGOT) (BEAKER) (test bumu=407) 13 U/L 5-34 ALT (SGPT) (BEAKER) (test waff=389) 6 U/L 6-55 CREATINE KINASE (CK)2019-02-13 10:34:00 Test Item Value Reference Range Comments CREATINE KINASE TOTAL (BEAKER) (test kipm=384) 37 U/L 29-200 ANTI-NUCLEAR ANTIBODY (CARROL)2019-02-13 10:25:00 Test Item Value Reference Range Comments ANTI-NUCLEAR ANTIBODY (CARROL) (BEAKER) (test Positive Negative epfu=736) Test performed by IFA method.CARROL TITER AND [id number] 10:25:00 Test Item Value Reference Range Comments CARROL TITER (BEAKER) (test arvt=8656) :160 CARROL PATTERN (BEAKER) (test pftm=4932) Homogeneous CALCIUM, [id number] 10:17:00 Test Item Value Reference Range Comments CALCIUM IONIZED (BEAKER) (test fwab=001) 1.03 mmol/L 1.12-1.27 PH, BLOOD (BEAKER) (test bosv=1692) 7.51 BODY FLUID CULTURE + GRAM [id number] 12:36:00 Test Item Value Reference Range Comments CULTURE (BEAKER) (test gcrx=9081) No growth GRAM STAIN RESULT (BEAKER) (test <1+ White blood cells seen drpp=7216) GRAM STAIN RESULT (BEAKER) (test No organisms seen xgfb=15900) [id number] 09:07:00 Test Item Value Reference Range Comments PHOSPHORUS (BEAKER) (test yulw=727) 2.2 mg/dL 2.3-4.7 [id number] 09:07:00 Test Item Value Reference Range Comments MAGNESIUM (BEAKER) (test ahjz=920) 2.4 mg/dL 1.6-2.6 COMPREHENSIVE METABOLIC [id number] 09:07:00 Test Item Value Reference Range Comments TOTAL PROTEIN (BEAKER) 6.2 gm/dL 6.0-8.3 (test egvz=431) ALBUMIN (BEAKER) (test 3.7 g/dL 3.5-5.0 duyg=7067) ALKALINE PHOSPHATASE 27 U/L 40-150 (BEAKER) (test jqsr=650) BILIRUBIN TOTAL (BEAKER) 0.8 mg/dL 0.2-1.2 (test mtqh=219) SODIUM (BEAKER) (test 142 meq/L 136-145 zxmr=576) POTASSIUM (BEAKER) (test 3.4 meq/L 3.5-5.1 mmwr=258) CHLORIDE (BEAKER) (test 111 meq/L 98-107 zlbi=015) CO2 (BEAKER) (test 20 meq/L 22-29 ldem=634) BLOOD UREA NITROGEN 10 mg/dL 7-21 (BEAKER) (test gbyb=439) CREATININE (BEAKER) (test 2.89 mg/dL 0.57-1.25 oogv=706) GLUCOSE RANDOM (BEAKER) 98 mg/dL 70-105 (test hxqo=805) CALCIUM (BEAKER) (test 8.5 mg/dL 8.4-10.2 bzqr=672) AST (SGOT) (BEAKER) (test 14 U/L 5-34 ysyh=977) ALT (SGPT) (BEAKER) (test 6 U/L 6-55 smde=355) EGFR (BEAKER) (test 20 mL/min/1.73 sq m ESTIMATED GFR IS NOT wjei=0352) ACCURATE CREATININE CLEARANCE IN PREDICTING GLOMERULAR FILTRATION RATE. ESTIMATED GFR IS NOT APPLICABLE FOR DIALYSIS PATIENTS. CALCIUM, [id number] 07:28:00 Test Item Value Reference Range Comments CALCIUM IONIZED (BEAKER) (test zxhd=888) 1.02 mmol/L 1.12-1.27 PH, BLOOD (BEAKER) (test ouhs=3040) 7.46 CBC W/PLT COUNT & AUTO [id number] 06:55:00 Test Item Value Reference Range Comments WHITE BLOOD CELL COUNT (BEAKER) (test borv=672) 5.8 K/ L 3.5-10.5 RED BLOOD CELL COUNT (BEAKER) (test csfk=704) 2.33 M/ L 3.93-5.22 HEMOGLOBIN (BEAKER) (test yvfq=002) 7.5 GM/DL 11.2-15.7 HEMATOCRIT (BEAKER) (test vywc=642) 23.5 % 34.1-44.9 MEAN CORPUSCULAR VOLUME (BEAKER) (test ovpz=127) 100.9 fL 79.4-94.8 MEAN CORPUSCULAR HEMOGLOBIN (BEAKER) (test 32.2 pg 25.6-32.2 hbur=402) MEAN CORPUSCULAR HEMOGLOBIN CONC (BEAKER) (test 31.9 GM/DL 32.2-35.5 tvmo=939) RED CELL DISTRIBUTION WIDTH (BEAKER) (test 13.7 % 11.7-14.4 vqxf=292) PLATELET COUNT (BEAKER) (test pkxx=671) 183 K/CU MM 150-450 MEAN PLATELET VOLUME (BEAKER) (test graq=678) 8.3 fL 9.4-12.3 NUCLEATED RED BLOOD CELLS (BEAKER) (test 0 /100 WBC 0-0 boof=212) NEUTROPHILS RELATIVE PERCENT (BEAKER) (test 71 % jyzm=784) LYMPHOCYTES RELATIVE PERCENT (BEAKER) (test 21 % nxyy=564) MONOCYTES RELATIVE PERCENT (BEAKER) (test 6 % ygym=333) EOSINOPHILS RELATIVE PERCENT (BEAKER) (test 2 % enyk=884) BASOPHILS RELATIVE PERCENT (BEAKER) (test 1 % oxvx=808) NEUTROPHILS ABSOLUTE COUNT (BEAKER) (test 4.13 K/ L 1.56-6.13 oaen=144) LYMPHOCYTES ABSOLUTE COUNT (BEAKER) (test 1.20 K/ L 1.18-3.74 nuny=726) MONOCYTES ABSOLUTE COUNT (BEAKER) (test 0.34 K/ L 0.24-0.36 hvhs=222) EOSINOPHILS ABSOLUTE COUNT (BEAKER) (test 0.09 K/ L 0.04-0.36 kqwu=205) BASOPHILS ABSOLUTE COUNT (BEAKER) (test 0.05 K/ L 0.01-0.08 lnmi=434) IMMATURE GRANULOCYTES-RELATIVE PERCENT (BEAKER) 0 % 0-1 (test jgok=4392) B-TYPE NATRIURETIC FACTOR (BNP)2019-02-11 17:28:00 Test Item Value Reference Range Comments B-TYPE NATRIURETIC PEPTIDE (BEAKER) (test ppib=541) 61 pg/mL 0-100 CBC W/PLT COUNT & AUTO [id number] 17:10:00 Test Item Value Reference Range Comments WHITE BLOOD CELL COUNT (BEAKER) (test cpyv=373) 5.8 K/ L 3.5-10.5 RED BLOOD CELL COUNT (BEAKER) (test pzvn=876) 2.27 M/ L 3.93-5.22 HEMOGLOBIN (BEAKER) (test cqsv=890) 7.3 GM/DL 11.2-15.7 HEMATOCRIT (BEAKER) (test eqqe=646) 23.4 % 34.1-44.9 MEAN CORPUSCULAR VOLUME (BEAKER) (test jcow=695) 103.1 fL 79.4-94.8 MEAN CORPUSCULAR HEMOGLOBIN (BEAKER) (test 32.2 pg 25.6-32.2 rtwl=577) MEAN CORPUSCULAR HEMOGLOBIN CONC (BEAKER) (test 31.2 GM/DL 32.2-35.5 lbqs=634) RED CELL DISTRIBUTION WIDTH (BEAKER) (test 14.0 % 11.7-14.4 dnqd=647) PLATELET COUNT (BEAKER) (test xrcw=670) 204 K/CU MM 150-450 MEAN PLATELET VOLUME (BEAKER) (test kqny=089) 9.8 fL 9.4-12.3 NUCLEATED RED BLOOD CELLS (BEAKER) (test 0 /100 WBC 0-0 zyvp=536) NEUTROPHILS RELATIVE PERCENT (BEAKER) (test 69 % ofuo=094) LYMPHOCYTES RELATIVE PERCENT (BEAKER) (test 21 % jmto=391) MONOCYTES RELATIVE PERCENT (BEAKER) (test 6 % awda=934) EOSINOPHILS RELATIVE PERCENT (BEAKER) (test 2 % pqvz=521) BASOPHILS RELATIVE PERCENT (BEAKER) (test 1 % pepl=703) NEUTROPHILS ABSOLUTE COUNT (BEAKER) (test 4.04 K/ L 1.56-6.13 itpr=626) LYMPHOCYTES ABSOLUTE COUNT (BEAKER) (test 1.24 K/ L 1.18-3.74 ynuw=003) MONOCYTES ABSOLUTE COUNT (BEAKER) (test 0.36 K/ L 0.24-0.36 nwlb=654) EOSINOPHILS ABSOLUTE COUNT (BEAKER) (test 0.11 K/ L 0.04-0.36 wjym=244) BASOPHILS ABSOLUTE COUNT (BEAKER) (test 0.05 K/ L 0.01-0.08 rccy=726) IMMATURE GRANULOCYTES-RELATIVE PERCENT (BEAKER) 1 % 0-1 (test tgnu=7894) CT, [id number] 16:19:00FINAL REPORT TECHNIQUE: CT of the abdomen [...] Verified Date/Time: 02/11/2019 16: 19:52 Reading Location: [facility] B1 C013Y CT Body Reading Room [facility] METABOLIC [id number] 05:02:00 Test Item Value Reference Range Comments SODIUM (BEAKER) (test 142 meq/L 136-145 slse=725) POTASSIUM (BEAKER) (test 3.7 meq/L 3.5-5.1 ganw=113) CHLORIDE (BEAKER) (test 113 meq/L 98-107 lrvb=447) CO2 (BEAKER) (test 18 meq/L 22-29 gian=756) BLOOD UREA NITROGEN 13 mg/dL 7-21 (BEAKER) (test kxmu=651) CREATININE (BEAKER) (test 2.15 mg/dL 0.57-1.25 mmqe=125) GLUCOSE RANDOM (BEAKER) 115 mg/dL 70-105 (test mgha=151) CALCIUM (BEAKER) (test 8.1 mg/dL 8.4-10.2 zmwq=392) EGFR (BEAKER) (test 28 mL/min/1.73 sq m ESTIMATED GFR IS NOT aeaw=3361) ACCURATE CREATININE CLEARANCE IN PREDICTING GLOMERULAR FILTRATION RATE. ESTIMATED GFR IS NOT APPLICABLE FOR DIALYSIS PATIENTS. HEPATIC FUNCTION [id number] 04:31:00 Test Item Value Reference Range Comments TOTAL PROTEIN (BEAKER) (test zjha=310) 5.9 gm/dL 6.0-8.3 ALBUMIN (BEAKER) (test xozl=8815) 3.0 g/dL 3.5-5.0 BILIRUBIN TOTAL (BEAKER) (test injf=798) 0.7 mg/dL 0.2-1.2 BILIRUBIN DIRECT (BEAKER) (test sxdi=681) 0.4 mg/dL 0.1-0.5 ALKALINE PHOSPHATASE (BEAKER) (test vyht=482) 34 U/L 40-150 AST (SGOT) (BEAKER) (test ffbo=067) 17 U/L 5-34 ALT (SGPT) (BEAKER) (test zfxa=608) 9 U/L 6-55 [id number] 04:30:00 Test Item Value Reference Range Comments PHOSPHORUS (BEAKER) (test zvlf=198) 2.5 mg/dL 2.3-4.7 [id number] 04:30:00 Test Item Value Reference Range Comments MAGNESIUM (BEAKER) (test ysfe=260) 1.5 mg/dL 1.6-2.6 CBC W/PLT COUNT & AUTO [id number] 04:04:00 Test Item Value Reference Range Comments WHITE BLOOD CELL COUNT (BEAKER) (test wppo=331) 6.0 K/ L 3.5-10.5 RED BLOOD CELL COUNT (BEAKER) (test wfeo=343) 2.64 M/ L 3.93-5.22 HEMOGLOBIN (BEAKER) (test acvy=270) 8.3 GM/DL 11.2-15.7 HEMATOCRIT (BEAKER) (test sxew=007) 27.7 % 34.1-44.9 MEAN CORPUSCULAR VOLUME (BEAKER) (test fldv=061) 104.9 fL 79.4-94.8 MEAN CORPUSCULAR HEMOGLOBIN (BEAKER) (test 31.4 pg 25.6-32.2 yaur=876) MEAN CORPUSCULAR HEMOGLOBIN CONC (BEAKER) (test 30.0 GM/DL 32.2-35.5 rjpk=313) RED CELL DISTRIBUTION WIDTH (BEAKER) (test 14.1 % 11.7-14.4 xqxe=600) PLATELET COUNT (BEAKER) (test skko=903) 198 K/CU MM 150-450 MEAN PLATELET VOLUME (BEAKER) (test uexe=100) 8.4 fL 9.4-12.3 NUCLEATED RED BLOOD CELLS (BEAKER) (test 0 /100 WBC 0-0 xzep=128) NEUTROPHILS RELATIVE PERCENT (BEAKER) (test 66 % niuu=367) LYMPHOCYTES RELATIVE PERCENT (BEAKER) (test 25 % nfmw=494) MONOCYTES RELATIVE PERCENT (BEAKER) (test 6 % noaj=497) EOSINOPHILS RELATIVE PERCENT (BEAKER) (test 2 % tiry=305) BASOPHILS RELATIVE PERCENT (BEAKER) (test 1 % irig=577) NEUTROPHILS ABSOLUTE COUNT (BEAKER) (test 3.90 K/ L 1.56-6.13 nays=194) LYMPHOCYTES ABSOLUTE COUNT (BEAKER) (test 1.50 K/ L 1.18-3.74 oioj=465) MONOCYTES ABSOLUTE COUNT (BEAKER) (test 0.37 K/ L 0.24-0.36 takr=987) EOSINOPHILS ABSOLUTE COUNT (BEAKER) (test 0.11 K/ L 0.04-0.36 zggi=851) BASOPHILS ABSOLUTE COUNT (BEAKER) (test 0.05 K/ L 0.01-0.08 iivs=552) IMMATURE GRANULOCYTES-RELATIVE PERCENT (BEAKER) 1 % 0-1 (test djqa=7969) URINALYSIS W/ REFLEX URINE [id number] 21:08:00 Test Item Value Reference Range Comments COLOR (BEAKER) (test twyh=897) Yellow CLARITY (BEAKER) (test ujoy=510) Hazy SPECIFIC GRAVITY UA (BEAKER) (test dstl=826) 1.015 1.001-1.035 PH UA (BEAKER) (test uunf=993) 5.5 5.0-8.0 PROTEIN UA (BEAKER) (test izzh=967) 20 mg/dL Negative GLUCOSE UA (BEAKER) (test gvjl=099) Negative Negative KETONES UA (BEAKER) (test czkn=225) Trace Negative BILIRUBIN UA (BEAKER) (test zqwc=264) Negative Negative BLOOD UA (BEAKER) (test ajpz=042) Negative Negative NITRITE UA (BEAKER) (test aejw=858) Negative Negative LEUKOCYTE ESTERASE UA (BEAKER) (test umkp=627) Large Negative UROBILINOGEN UA (BEAKER) (test zzir=255) 0.2 mg/dL 0.2-1.0 RBC UA (BEAKER) (test hvwk=177) 1 /HPF WBC UA (BEAKER) (test qgmq=303) 10 /HPF SQUAMOUS EPITHELIAL (BEAKER) (test lfbw=773) 3 /HPF HYALINE CASTS (BEAKER) (test pcdh=632) 2 /LPF CRYSTALS, URINE (BEAKER) (test sqhy=3767) Rare YEAST (BEAKER) (test sxrh=3746) Occasional SOURCE(BEAKER) (test whsb=1296) HEPATITIS B SURFACE [id number] 20:13:00 Test Item Value Reference Range Comments HEPATITIS B SURFACE ANTIBODY (BEAKER) (test < mIU/mL <8.0 wcaf=839) HEPATITIS A ANTIBODY, [id number] 20:13:00 Test Item Value Reference Range Comments HEPATITIS A IGG ANTIBODY (BEAKER) (test zcvr=3085) Reactive Nonreactive HEPATITIS B SURFACE [id number] 20:11:00 Test Item Value Reference Range Comments HEPATITIS B SURFACE ANTIGEN (2) (BEAKER) (test Nonreactive Nonreactive iehh=1885) HEPATITIS C [id number] 20:11:00 Test Item Value Reference Range Comments HEPATITIS C ANTIBODY (BEAKER) (test iywn=399) Nonreactive Nonreactive U/S, ABDOMINAL, WITH [id number] 20:08:00Reason for exam:->evaluation for liver disease, other [...] MDReport Verified Date/Time: 02/09/2019 20:08:48 Reading Location: [facility] [place] [facility] Consult Reading Room IMMUNOGLOBULIN G (IGG)2019-02-09 19:45:00 Test Item Value Reference Range Comments IMMUNOGLOBULIN G (IGG) (BEAKER) (test sbfk=076) 926 mg/dL 540-1,822 [id number] 19:13:00 Test Item Value Reference Range Comments FERRITIN (BEAKER) (test hxlu=789) 1896 ng/mL 5-275 BODY FLUID CELL COUNT WITH [id number] 19:01:00 Test Item Value Reference Range Comments APPEARANCE FLUID (BEAKER) (test ejqf=722) Slightly Hazy Clear COLOR FLUID (BEAKER) (test uxsk=694) Yellow Colorless, Straw RBC FLUID (BEAKER) (test oicb=903) 200 /cu mm <=1 ADJUSTED WBC FLUID (BEAKER) (test kjdh=5179) 88 /cu mm <=5 LINING CELLS (BEAKER) (test mint=3538) 2 /cu mm <=1 NEUTROPHILS FLUID (BEAKER) (test jist=5631) 1 % LYMPHS FLUID (BEAKER) (test seru=989) 57 % MONO/MACROPHAGE FLUID (BEAKER) (test 40 % qvnw=177) EOSINOPHILS FLUID (BEAKER) (test gksi=552) 2 % BASO FLUID (BEAKER) (test usko=775) 0 % CONTAINER BODY FLUID (BEAKER) (test EDTA Tube fhov=1076) IRON, TIBC, % SAT. (WITHOUT FERRITIN)2019-02-09 18:53:00 Test Item Value Reference Range Comments IRON (BEAKER) (test izdl=215) 23.0 ug/dL 40.0-160.0 TOTAL IRON BINDING CAPACITY (BEAKER) (test 94 ug/dL 250-450 oich=871) IRON % SATURATION (2) (BEAKER) (test eyac=3802) 24 % 20-55 GAMMA GLUTAMYL TRANSFERASE (GGT)2019-02-09 18:51:00 Test Item Value Reference Range Comments GAMMA GLUTAMYL TRANSFERASE 21 U/L 9-64 Specimen slightly hemolyzed (BEAKER) (test zsyq=835) ALBUMIN, BODY [id number] 18:07:00 Test Item Value Reference Range Comments ALBUMIN FLUID (BEAKER) (test rngs=125) 2.3 gm/dL Reference Range: No Normals Assay performance has not been validated for this type of specimen.LACTATE DEHYDROGENASE (LDH), BODY [id number] 18:07:00 Test Item Value Reference Range Comments LACTATE DEHYDROGENASE FLUID (BEAKER) (test wovy=971) 288 U/L Absence of reference range indicates that normals have not been defined.Assay performance has not been validated for this type of specimen.RAD, CHEST, 1 VIEW , NON [id number] 17:55:00Reason for exam:->dyspneaShould this be performed at [...] MDReport Verified Date/Time: 02/09/2019 17:55:29 Reading Location: [facility] [place] [facility] Consult Reading Room SODIUM, RANDOM [id number] 16:13:00 Test Item Value Reference Range Comments SODIUM URINE (BEAKER) (test vlkq=123) < meq/L Reference Range: No NormalsCREATININE, RANDOM [id number] 16:11:00 Test Item Value Reference Range Comments CREATININE URINE (BEAKER) (test vkzw=327) 177.2 mg/dL Reference Range: No NormalsUREA NITROGEN, RANDOM [id number] 16:11:00 Test Item Value Reference Range Comments UREA NITROGEN URINE (BEAKER) (test zvps=724) 557 mg/dL Reference Range: No [id number] 15:34:00 Test Item Value Reference Range Comments PROCALCITONIN (BEAKER) (test zsqt=3296) 0.12 ng/mL <0.05 SEPSIS RISK (ng/mL)Low: 0.05-0.50Intermediate: 0.51-2.00High: & gt;=2.01B-TYPE NATRIURETIC FACTOR (BNP)2019-02-09 15:28:00 Test Item Value Reference Range Comments B-TYPE NATRIURETIC PEPTIDE (BEAKER) (test naal=951) 17 pg/mL 0-100 TROPONIN [id number] 15:27:00 Test Item Value Reference Range Comments TROPONIN I (BEAKER) (test mbnm=351) < ng/mL 0.00-0.03 Troponin I (TnI) levels [...] acute neurological disease, and persistent tachyarrhythmia.HEPATIC FUNCTION [id number] 15:21: 00 Test Item Value Reference Range Comments TOTAL PROTEIN (BEAKER) (test hado=107) 6.3 gm/dL 6.0-8.3 ALBUMIN (BEAKER) (test fktp=5608) 2.9 g/dL 3.5-5.0 BILIRUBIN TOTAL (BEAKER) (test iudh=023) 0.9 mg/dL 0.2-1.2 BILIRUBIN DIRECT (BEAKER) (test hirr=237) 0.5 mg/dL 0.1-0.5 ALKALINE PHOSPHATASE (BEAKER) (test lzol=324) 40 U/L 40-150 AST (SGOT) (BEAKER) (test duoe=695) 19 U/L 5-34 ALT (SGPT) (BEAKER) (test bond=163) 12 U/L 6-55 BASIC METABOLIC [id number] 15:21:00 Test Item Value Reference Range Comments SODIUM (BEAKER) (test 143 meq/L 136-145 bwcg=877) POTASSIUM (BEAKER) (test 3.3 meq/L 3.5-5.1 snkg=979) CHLORIDE (BEAKER) (test 112 meq/L 98-107 bykg=770) CO2 (BEAKER) (test 17 meq/L 22-29 lepr=894) BLOOD UREA NITROGEN 16 mg/dL 7-21 (BEAKER) (test pcwt=294) CREATININE (BEAKER) (test 1.92 mg/dL 0.57-1.25 rvgw=792) GLUCOSE RANDOM (BEAKER) 111 mg/dL 70-105 (test hdex=692) CALCIUM (BEAKER) (test 8.6 mg/dL 8.4-10.2 geun=286) EGFR (BEAKER) (test 32 mL/min/1.73 sq m ESTIMATED GFR IS NOT gnjl=1462) ACCURATE CREATININE CLEARANCE IN PREDICTING GLOMERULAR FILTRATION RATE. ESTIMATED GFR IS NOT APPLICABLE FOR DIALYSIS PATIENTS. PROTHROMBIN [id number] 15:17:00 Test Item Value Reference Range Comments PROTIME (BEAKER) (test szbq=615) 16.0 seconds 11.7-14.7 INR (BEAKER) (test piqg=848) 1.3 <=5.9 RECOMMENDED COUMADIN/WARFARIN INR THERAPY RANGESSTANDARD DOSE: 2.0 - 3.0 Includes: PROPHYLAXIS forvenous thrombosis, systemic embolization; TREATMENT for venous thrombosis and/or pulmonary embolus.HIGH RISK: Target INR is 2.5-3.5 for patients with mechanical heart valves.[id number] 15:17:00 Test Item Value Reference Range Comments FIBRINOGEN LEVEL (BEAKER) (test alkx=633) 718 mg/dl 225-434 CBC W/PLT COUNT & AUTO [id number] 15:15:00 Test Item Value Reference Range Comments WHITE BLOOD CELL COUNT (BEAKER) (test xyts=902) 7.0 K/ L 3.5-10.5 RED BLOOD CELL COUNT (BEAKER) (test eiwz=682) 2.80 M/ L 3.93-5.22 HEMOGLOBIN (BEAKER) (test dcpz=170) 9.1 GM/DL 11.2-15.7 HEMATOCRIT (BEAKER) (test tsum=748) 28.5 % 34.1-44.9 MEAN CORPUSCULAR VOLUME (BEAKER) (test ynlz=411) 101.8 fL 79.4-94.8 MEAN CORPUSCULAR HEMOGLOBIN (BEAKER) (test 32.5 pg 25.6-32.2 ilue=481) MEAN CORPUSCULAR HEMOGLOBIN CONC (BEAKER) (test 31.9 GM/DL 32.2-35.5 ewat=356) RED CELL DISTRIBUTION WIDTH (BEAKER) (test 13.8 % 11.7-14.4 fhon=657) PLATELET COUNT (BEAKER) (test zsaj=229) 212 K/CU MM 150-450 MEAN PLATELET VOLUME (BEAKER) (test gbzo=974) 9.2 fL 9.4-12.3 NUCLEATED RED BLOOD CELLS (BEAKER) (test 0 /100 WBC 0-0 ztax=217) NEUTROPHILS RELATIVE PERCENT (BEAKER) (test 70 % hxfq=816) LYMPHOCYTES RELATIVE PERCENT (BEAKER) (test 22 % hufi=669) MONOCYTES RELATIVE PERCENT (BEAKER) (test 5 % jygk=628) EOSINOPHILS RELATIVE PERCENT (BEAKER) (test 1 % mrks=453) BASOPHILS RELATIVE PERCENT (BEAKER) (test 1 % kvli=750) NEUTROPHILS ABSOLUTE COUNT (BEAKER) (test 4.92 K/ L 1.56-6.13 plzr=749) LYMPHOCYTES ABSOLUTE COUNT (BEAKER) (test 1.58 K/ L 1.18-3.74 uidl=957) MONOCYTES ABSOLUTE COUNT (BEAKER) (test 0.35 K/ L 0.24-0.36 auum=444) EOSINOPHILS ABSOLUTE COUNT (BEAKER) (test 0.09 K/ L 0.04-0.36 yife=444) BASOPHILS ABSOLUTE COUNT (BEAKER) (test 0.07 K/ L 0.01-0.08 zmuj=555) IMMATURE GRANULOCYTES-RELATIVE PERCENT (BEAKER) 0 % 0-1 (test qulb=3055) LACTIC ACID, [id number] 15:15:00 Test Item Value Reference Range Comments LACTATE BLOOD VENOUS (2) 1.3 mmol/L 0.5-2.2 Specimen moderately hemolyzed (BEAKER) (test kdnk=6507) [id number] 15:14:00 Test Item Value Reference Range Comments AMMONIA (BEAKER) (test 17 mol/L 18-72 Specimen moderately hemolyzed jxyn=496) [id number] 14:17:00Medical Cytology Report Case: [id number] Authorizing Provider: Mary Elizondo MD Collected: 02/01/2019 1654 Ordering Location: [address] Received: 02/02/2019 0857 Service Pathologist: Cherri [...] - HER 2 OVER-EXPRESSION: NEGATIVE (SCORE: 0)PB: 04806 X3, 02337 CAP REGULATION: FIXATION TIME FOR BIOMARKERS ASSESSMENTCollection [...] and Ki67 were assessed using clones SP1 ([place] ), 1294 (DAKO), 4B5 (FDA Approved [place] [facility]) and 30-9 ([place]) respectively. Control Slides Examined: In-house known ER, AZ, HER2 and Ki67 positive controls were evaluated along with test tissue. These control slides run alongside of the patients sample show appropriate staining. Internal controls when available are evaluated.Interpretive Criteria: The staining results according to the ASCO/CAP guidelines for HER2 (Jaylen AC et al. Arch Pathol Lab Med December 29) and ER/AZ (Yvette HERNÁNDEZ et al. Arch Pathol Lab Med 2010; 134:e48-e72) by ASCO/CAP guidelines.ER and [place] "positive" requires greater or equal to 1% [...] equal to 10% of tumor cells. The ER/AZ Proportion Score indicates the proportion of positive [...] Immunohistochemistry technical testing was performed at [facility], Pathology Laboratory where it was [...] (SEE COMMENT) Signing Pathologist Direct Phone Line: [phone] signed by Cherri Covington MD on 02/07/2019 at 4:06 PMThe peritoneal fluid shows few atypical cells,scattered mostly singly. These cells are positive for MOC-31, Irwin -EP4 and MAYUR-3. GCDFP is negative.Calretinin and WT-1 highlight mesothelial cells. The immunoprofile is compatible with patient's history of breast primaryAn addendm report will follow with the results of the biomarkers.18851, 92715; 73802; 14020 x 5Ascites, history of of breast cancer (dx 2010 s/p chemoXRT, lumpectomy)PERITONEAL [id number] mls yellow; 4 cytospins, cell blockCollected: [id number]: [id number] interpretation of this case included the use of immunohistochemistry or special stains. Calretinin; WT- 1; MAYUR-3; GCDFP; MOC-31 AND IRWIN-LV0Dzvkmsdfbpbwgrxwlwfm technical testing was performed at [facility], Pathology Laboratory where it was [...] qualified to perform high complexity clinical laboratory testing.[facility], Department of Pathology, [address] [place] [address], Tel [facility] of [facility], [address] [place] [address], [facility], [facility] of [facility], [address] [place] [address], Tel STOOL CULTURE + SHIGA [id number] 00:23:00 Test Item Value Reference Range Comments CULTURE (BEAKER) (test No Salmonella, Shigella or vgon=8905) Campylobacter isolated SHIGA TOXIN [id number] 10:46:00 Test Item Value Reference Range Comments SHIGA TOXIN 1 (BEAKER) (test xoon=2544) Not detected Not detected SHIGA TOXIN 2 (BEAKER) (test ighr=5433) Not detected Not detected Resubmit new specimen if clinically indicated.BODY FLUID CULTURE + GRAM [id number] 08:40:00 Test Item Value Reference Range Comments CULTURE (BEAKER) (test enwe=2921) No growth GRAM STAIN RESULT (BEAKER) (test 1+ WBCs sujw=6157) GRAM STAIN RESULT (BEAKER) (test No organisms seen mutg=13080) STOOL PATH [id number] 11:26:00 Test Item Value Reference Range Comments PATHOGEN EXAM CHARGED (BEAKER) (test cgrz=1976) Done C. DIFFICILE GDH [id number] 17:05:00 Test Item Value Reference Range Comments CDT TOXIN (test Negative Negative qhbi=[id number]) CDT GDH ANTIGEN (test Negative Negative No indication of Clostridium aoks=[id number]) difficile infection and no colonization. Discontinue enteric isolation and therapy. Testing performed by [employer] Rapid Cassette Assay. For GDH, published sensitivity of the assay is 98.7% compared to cytotoxicity testing. For Toxin AB, published sensitivity is 87.8% and specificity 99.4% compared to cytotoxicity testing.Verification of kit performance was done by the [facility] Microbiology Lab prior to clinical use.[id number] 13:10:00 Test Item Value Reference Range Comments MAGNESIUM (BEAKER) (test mwpq=609) 1.9 mg/dL 1.6-2.6 BASIC METABOLIC [id number] 13:10:00 Test Item Value Reference Range Comments SODIUM (BEAKER) (test 139 meq/L 136-145 omlh=659) POTASSIUM (BEAKER) (test 4.0 meq/L 3.5-5.1 jofy=398) CHLORIDE (BEAKER) (test 110 meq/L 98-107 ecdm=500) CO2 (BEAKER) (test 21 meq/L 22-29 stdw=923) BLOOD UREA NITROGEN 21 mg/dL 7-21 (BEAKER) (test mzla=992) CREATININE (BEAKER) (test 1.34 mg/dL 0.57-1.25 heux=247) GLUCOSE RANDOM (BEAKER) 112 mg/dL 70-105 (test acnk=942) CALCIUM (BEAKER) (test 8.5 mg/dL 8.4-10.2 rvgi=214) EGFR (BEAKER) (test 49 mL/min/1.73 sq m ESTIMATED GFR IS NOT trbm=6793) ACCURATE CREATININE CLEARANCE IN PREDICTING GLOMERULAR FILTRATION RATE. ESTIMATED GFR IS NOT APPLICABLE FOR DIALYSIS PATIENTS. HEPATIC FUNCTION [id number] 13:10:00 Test Item Value Reference Range Comments TOTAL PROTEIN (BEAKER) (test mmeu=987) 6.2 gm/dL 6.0-8.3 ALBUMIN (BEAKER) (test rvgy=4167) 2.7 g/dL 3.5-5.0 BILIRUBIN TOTAL (BEAKER) (test qbhr=725) 0.5 mg/dL 0.2-1.2 BILIRUBIN DIRECT (BEAKER) (test iowb=104) 0.2 mg/dL 0.1-0.5 ALKALINE PHOSPHATASE (BEAKER) (test hren=951) 36 U/L 40-150 AST (SGOT) (BEAKER) (test uffp=967) 16 U/L 5-34 ALT (SGPT) (BEAKER) (test jrvd=913) 10 U/L 6-55 CBC W/PLT COUNT & AUTO [id number] 12:41:00 Test Item Value Reference Range Comments WHITE BLOOD CELL COUNT (BEAKER) (test mckr=134) 6.6 K/ L 3.5-10.5 RED BLOOD CELL COUNT (BEAKER) (test ooma=637) 2.65 M/ L 3.93-5.22 HEMOGLOBIN (BEAKER) (test rttx=450) 8.6 GM/DL 11.2-15.7 HEMATOCRIT (BEAKER) (test pefr=743) 28.1 % 34.1-44.9 MEAN CORPUSCULAR VOLUME (BEAKER) (test pazf=292) 106.0 fL 79.4-94.8 MEAN CORPUSCULAR HEMOGLOBIN (BEAKER) (test 32.5 pg 25.6-32.2 iafk=773) MEAN CORPUSCULAR HEMOGLOBIN CONC (BEAKER) (test 30.6 GM/DL 32.2-35.5 mamz=971) RED CELL DISTRIBUTION WIDTH (BEAKER) (test 13.6 % 11.7-14.4 urbl=489) PLATELET COUNT (BEAKER) (test grio=388) 285 K/CU MM 150-450 MEAN PLATELET VOLUME (BEAKER) (test hsln=784) 8.3 fL 9.4-12.3 NUCLEATED RED BLOOD CELLS (BEAKER) (test 0 /100 WBC 0-0 ziaq=179) NEUTROPHILS RELATIVE PERCENT (BEAKER) (test 71 % eimx=106) LYMPHOCYTES RELATIVE PERCENT (BEAKER) (test 22 % eaai=704) MONOCYTES RELATIVE PERCENT (BEAKER) (test 6 % ikeh=423) EOSINOPHILS RELATIVE PERCENT (BEAKER) (test 0 % whnm=997) BASOPHILS RELATIVE PERCENT (BEAKER) (test 1 % wtly=537) NEUTROPHILS ABSOLUTE COUNT (BEAKER) (test 4.68 K/ L 1.56-6.13 nmgc=397) LYMPHOCYTES ABSOLUTE COUNT (BEAKER) (test 1.43 K/ L 1.18-3.74 adwp=509) MONOCYTES ABSOLUTE COUNT (BEAKER) (test 0.39 K/ L 0.24-0.36 vlkw=756) EOSINOPHILS ABSOLUTE COUNT (BEAKER) (test 0.02 K/ L 0.04-0.36 roqy=952) BASOPHILS ABSOLUTE COUNT (BEAKER) (test 0.03 K/ L 0.01-0.08 npdo=174) IMMATURE GRANULOCYTES-RELATIVE PERCENT (BEAKER) 1 % 0-1 (test eyuj=6681) U/S, ABDOMINAL, WITH [id number] 10:51:00Reason for exam:->ascites, evaluate for PVTFINAL REPORT [...] Vahid Espinozaeport Verified Date/Time: 10:51:26 Reading Location: [address] Ultrasound Reading Room BODY FLUID CELL COUNT WITH [id number] 19:54:00 Test Item Value Reference Range Comments APPEARANCE FLUID (BEAKER) (test ieen=633) Slightly Hazy Clear COLOR FLUID (BEAKER) (test cztm=762) Yellow Colorless, Straw RBC FLUID (BEAKER) (test gutx=733) 262 /cu mm <=1 ADJUSTED WBC FLUID (BEAKER) (test eoeo=0964) 93 /cu mm <=5 LINING CELLS (BEAKER) (test xklw=9311) 4 /cu mm <=1 NEUTROPHILS FLUID (BEAKER) (test tslp=2511) 1 % LYMPHS FLUID (BEAKER) (test lnjy=113) 14 % MONO/MACROPHAGE FLUID (BEAKER) (test 85 % tnvk=483) EOSINOPHILS FLUID (BEAKER) (test kpek=168) 0 % BASO FLUID (BEAKER) (test surf=550) 0 % CONTAINER BODY FLUID (BEAKER) (test EDTA Tube eoju=9446) ALBUMIN, BODY [id number] 18:05:00 Test Item Value Reference Range Comments ALBUMIN FLUID (BEAKER) (test hshw=187) 2.6 gm/dL Reference Range: No Normals Assay performance has not been validated for this type of specimen.PROTEIN, BODY [id number] 18:05:00 Test Item Value Reference Range Comments PROTEIN FLUID (BEAKER) (test hjgp=707) 4.6 g/dL Absence of reference range indicates that normals have not been defined.Assay performance has not been validated for this type of specimen.U/S, [id number] 17:07:00Reason for exam:->ascites of unclear etiology , [...] sterile technique, ultrasound guidance and a 5 Vietnamese coaxial needle, a single pass right lower [...] MDReport Verified Date/Time: 02/01/2019 17:07:23 Reading Location: [place] [id number] Ultrasound Reading Room [id number] 12:56:00 Test Item Value Reference Range Comments MAGNESIUM (BEAKER) (test xyez=596) 2.2 mg/dL 1.6-2.6 BASIC METABOLIC [id number] 12:56:00 Test Item Value Reference Range Comments SODIUM (BEAKER) (test 142 meq/L 136-145 ehgy=243) POTASSIUM (BEAKER) (test 4.3 meq/L 3.5-5.1 yyyg=726) CHLORIDE (BEAKER) (test 108 meq/L 98-107 jslg=681) CO2 (BEAKER) (test 24 meq/L 22-29 sepv=832) BLOOD UREA NITROGEN 22 mg/dL 7-21 (BEAKER) (test jajg=807) CREATININE (BEAKER) (test 1.72 mg/dL 0.57-1.25 revx=048) GLUCOSE RANDOM (BEAKER) 139 mg/dL 70-105 (test zcji=360) CALCIUM (BEAKER) (test 9.1 mg/dL 8.4-10.2 regm=440) EGFR (BEAKER) (test 36 mL/min/1.73 sq m ESTIMATED GFR IS NOT vgfx=6529) ACCURATE CREATININE CLEARANCE IN PREDICTING GLOMERULAR FILTRATION RATE. ESTIMATED GFR IS NOT APPLICABLE FOR DIALYSIS PATIENTS. HEPATIC FUNCTION [id number] 12:56:00 Test Item Value Reference Range Comments TOTAL PROTEIN (BEAKER) (test afsl=668) 7.0 gm/dL 6.0-8.3 ALBUMIN (BEAKER) (test mprc=0799) 3.1 g/dL 3.5-5.0 BILIRUBIN TOTAL (BEAKER) (test haxc=553) 0.6 mg/dL 0.2-1.2 BILIRUBIN DIRECT (BEAKER) (test qjuj=638) 0.4 mg/dL 0.1-0.5 ALKALINE PHOSPHATASE (BEAKER) (test luyd=271) 42 U/L 40-150 AST (SGOT) (BEAKER) (test zivm=020) 15 U/L 5-34 ALT (SGPT) (BEAKER) (test gidj=152) 10 U/L 6-55 PROTHROMBIN [id number] 12:51:00 Test Item Value Reference Range Comments PROTIME (BEAKER) (test qsfx=844) 16.5 seconds 11.7-14.7 INR (BEAKER) (test ryjp=813) 1.3 <=5.9 RECOMMENDED COUMADIN/WARFARIN INR THERAPY RANGESSTANDARD DOSE: 2.0 - 3.0 Includes: PROPHYLAXIS forvenous thrombosis, systemic embolization; TREATMENT for venous thrombosis and/or pulmonary embolus.HIGH RISK: Target INR is 2.5-3.5 for patients with mechanical heart valves.CBC (HEMOGRAM ONLY)2019-02-01 12:38:00 Test Item Value Reference Range Comments WHITE BLOOD CELL COUNT (BEAKER) (test dtct=530) 9.6 K/ L 3.5-10.5 RED BLOOD CELL COUNT (BEAKER) (test jaul=713) 2.77 M/ L 3.93-5.22 HEMOGLOBIN (BEAKER) (test gdeq=501) 9.1 GM/DL 11.2-15.7 HEMATOCRIT (BEAKER) (test smkk=971) 28.9 % 34.1-44.9 MEAN CORPUSCULAR VOLUME (BEAKER) (test nqaz=993) 104.3 fL 79.4-94.8 MEAN CORPUSCULAR HEMOGLOBIN (BEAKER) (test 32.9 pg 25.6-32.2 xupn=891) MEAN CORPUSCULAR HEMOGLOBIN CONC (BEAKER) (test 31.5 GM/DL 32.2-35.5 yhfu=363) RED CELL DISTRIBUTION WIDTH (BEAKER) (test 13.7 % 11.7-14.4 qitv=715) PLATELET COUNT (BEAKER) (test gndg=982) 318 K/CU MM 150-450 MEAN PLATELET VOLUME (BEAKER) (test sxgo=470) 8.3 fL 9.4-12.3 NUCLEATED RED BLOOD CELLS (BEAKER) (test 0 /100 WBC 0-0 sygj=444)
[2019-11-23 14:59] LABS: Absolute Lymphocytes (CBC) 1.7 K/uL (0.7-4.9); Basophils % 0.4 % (0-1.3); Hematocrit 38.2 % (36.0-45.0); Lymphocytes % 32.9 % (15.3-44.8); MPV 7.1 fL (7.6-11.3)
[2019-11-23 15:05] LABS: Protime INR 1.13
[2019-11-23 15:23] LABS: Albumin 3.2 g/dL (3.4-5.0); Bilirubin Direct 0.2 mg/dL (0-0.2); Bilirubin Total 0.7 mg/dL (0.2-1.0); Potassium 3.4 mmol/L (3.5-5.1); Protein, Total 7.2 g/dL (6.4-8.2)
[2019-11-23 15:38] LABS: Anisocytosis 1+; Blood Morphology Comment NOTED (NOT SEEN); Hypochromasia 1+; Ovalocytes 1+; Platelet Estimate ADEQ; Urine White Blood Cell Casts OK
--- NOTE | 2019-11-23 16:15 | ER ---
Nurse's Notes [facility] Name: Angie Spring Age: 64 yrs Sex: Female : 1955 Arrival Date: 11/23/2019 Time: 13:23 Bed 19 Private MD: Diagnosis: Ascites Presentation: 11/23 13:41 Presenting complaint: Patient states: abd swelling x 2 weeks. Pt reports that last time ss this happened she had a paracentesis. Pt was told by her PCP when this happens again to come to the ER for a paracentesis. Transition of care: patient was not received from another setting of care. Onset of symptoms was November 09, 2019. Risk Assessment: Do you want to hurt yourself or someone else? Patient reports no desire to harm self or others. Initial Sepsis Screen: Does the patient meet any 2 criteria? HR > 90 bpm. Does the patient have a suspected source of infection? No. Patient's initial sepsis screen is negative. Care prior to arrival: None. 13:41 Method Of Arrival: Ambulatory ss 13:41 Acuity: KAT 3 ss Historical: - Allergies: 13:45 No Known Allergies; ss - PMHx: 13:45 breast cancer; Currently on Chemo; fluid around lungs; Hypertension; lymphedema; ss ascites; - PSHx: 13:45 Right lumpectomy; partial throidectomy; ss - Immunization history:: Adult Immunizations up to date. - Social history:: Smoking status: Patient/guardian denies using tobacco. - Ebola Screening: : Patient denies exposure to infectious person Patient denies travel to an Ebola-affected area in the 21 days before illness onset. Screenin:50 Abuse screen: Denies threats or abuse. Nutritional screening: No deficits noted. rb1 Tuberculosis screening: No symptoms or risk factors identified. Fall Risk None identified. Assessment: 13:50 General: Appears in no apparent distress. comfortable, Behavior is calm, cooperative, rb1 Denies fever. Neuro: Level of Consciousness is awake, alert, obeys commands, Oriented to person, place, time, situation. Cardiovascular: Capillary refill < 3 seconds is brisk in bilateral fingers. Respiratory: Airway is patent Respiratory effort is even, unlabored, Respiratory pattern is regular, symmetrical. GI: Bowel sounds present X 4 quads. Reports abdominal swelling, has had paracentesis in the past. : No signs and/or symptoms were reported regarding the genitourinary system. Derm: Skin is dry, Skin is normal, Skin temperature is warm. 13:50 Pain: Denies pain. rb1 13:50 GI: Abdomen is distended, Abd is rigid X 4 quads. rb1 14:45 Reassessment: Patient appears in no apparent distress at this time. No changes from rb1 previously documented assessment. 15:44 Reassessment: Patient appears in no apparent distress at this time. Patient and/or rb1 family updated on plan of care and expected duration. Pain level reassessed. Patient is alert, oriented x 3, equal unlabored respirations, skin warm/dry/pink. Friend at the bedside. 16:33 Reassessment: Patient appears in no apparent distress at this time. No changes from rb1 previously documented assessment. Vital Signs: 13:45 BP 119 / 82; Pulse 94; Resp 16; Temp 97.9(O); Pulse Ox 100% on R/A; Weight 90.26 kg; ss Height 5 ft. 7 in. (170.18 cm); 15:45 BP 111 / 81; Pulse 75; Resp 17; Pulse Ox 100% on R/A; Pain 0/10; rb1 16:33 BP 108 / 79; Pulse 77; Resp 19; Pulse Ox 100% on R/A; rb1 13:45 Body Mass Index 31.17 (90.26 kg, 170.18 cm) ED Course: 13:23 Patient arrived in ED. as 13:44 Triage completed. ss 13:45 Arm band placed on right wrist. 13:50 Abdelrahman Berger PA is PHCP. jr8 13:50 Hal Patino MD is Attending Physician. jr8 13:50 Patient has correct armband on for positive identification. Bed in low position. Call rb1 light in reach. Side rails up X 1. Pulse ox on. NIBP on. Warm blanket given. 14:06 Lavern Mckinney, RN is Primary Nurse. rb1 14:22 Missed attempt(s): 22 gauge in left hand. Bleeding controlled, band aid applied, dh3 catheter tip intact. 14:52 Initial lab(s) drawn, by ky, sent to lab. Missed attempt(s): 24 gauge in left wrist. ss Bleeding controlled, band aid applied, catheter tip intact. 16:09 XRAY Chest (1 view) In Process Unspecified. EDMS 16:34 No provider procedures requiring assistance completed. Patient did not have IV access rb1 during this emergency room visit. Administered Medications: No medications were administered Outcome: 16:15 Discharge ordered by . joselyn 16:34 Discharged to home via wheelchair, with family. rb1 16:34 Condition: stable 16:34 Discharge instructions given to patient, Instructed on discharge instructions, follow up and referral plans. Demonstrated understanding of instructions, follow-up care, Prescriptions given X none 16:35 Patient left the ED. rb1 Signatures: Dispatcher [employer] EDMS Edyta Lopez Shelby, SEVERIANO RN Abdelrahman Berger PA PA jr8 Lavern Mckinney, RN RN rb1 Maddie Ferris 3
--- NOTE | 2019-11-23 16:15 | EDPHYS ---
Physician Documentation [facility] Name: Angie Spring Age: 64 yrs Sex: Female : 1955 Arrival Date: 11/23/2019 Time: 13:23 Bed 19 Private MD: ED Physician Hal Patino HPI: 11/23 15:24 This 64 yrs old Black Female presents to ER via Ambulatory with complaints of Abdominal jr8 Swelling. 15:24 Onset: The symptoms/episode began/occurred gradually, 4 month(s) ago. The symptoms do jr8 not radiate. Associated signs and symptoms: Pertinent positives: shortness of breath. The symptoms are described as vague. Modifying factors: The symptoms are alleviated by nothing, the symptoms are aggravated by nothing. Severity of pain: At its worst the pain was mild in the emergency department the pain is unchanged. The patient has experienced a previous episode. The patient has not recently seen a physician. 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 Occasionally needs paracentesis if abdomen gets too big. Stated that it is getting uncomfortable now and came to ED to see if we could drain it . Historical: - Allergies: 13:45 No Known Allergies; ss - PMHx: 13:45 breast cancer; Currently on Chemo; fluid around lungs; Hypertension; lymphedema; ss ascites; - PSHx: 13:45 Right lumpectomy; partial throidectomy; ss - Immunization history:: Adult Immunizations up to date. - Social history:: Smoking status: Patient/guardian denies using tobacco. - Ebola Screening: : Patient denies exposure to infectious person Patient denies travel to an Ebola-affected area in the 21 days before illness onset. ROS: 15:24 Eyes: Negative for injury, pain, redness, and discharge, ENT: Negative for injury, jr8 pain, and discharge, Neck: Negative for injury, pain, and swelling, Cardiovascular: Negative for chest pain, palpitations, and edema, Back: Negative for injury and pain, MS/Extremity: Negative for injury and deformity, Skin: Negative for injury, rash, and discoloration, Neuro: Negative for headache, weakness, numbness, tingling, and seizure. 15:24 Respiratory: Positive for shortness of breath. 15:24 Abdomen/GI: Positive for abdominal distension, Negative for abdominal pain, nausea, vomiting, and diarrhea. Exam: 15:24 Eyes: Pupils equal round and reactive to light, extra-ocular motions intact. Lids and jr8 lashes normal. Conjunctiva and sclera are non-icteric and not injected. Cornea within normal limits. Periorbital areas with no swelling, redness, or edema. ENT: Nares patent. No nasal discharge, no septal abnormalities noted. Tympanic membranes are normal and external auditory canals are clear. Oropharynx with no redness, swelling, or masses, exudates, or evidence of obstruction, uvula midline. Mucous membranes moist. Neck: Trachea midline, no thyromegaly or masses palpated, and no cervical lymphadenopathy. Supple, full range of motion without nuchal rigidity, or vertebral point tenderness. No Meningismus. Cardiovascular: Regular rate and rhythm with a normal S1 and S2. No gallops, murmurs, or rubs. Normal PMI, no JVD. No pulse deficits. Respiratory: Lungs have equal breath sounds bilaterally, clear to auscultation and percussion. No rales, rhonchi or wheezes noted. No increased work of breathing, no retractions or nasal flaring. Back: No spinal tenderness. No costovertebral tenderness. Full range of motion. Skin: Warm, dry with normal turgor. Normal color with no rashes, no lesions, and no evidence of cellulitis. MS/ Extremity: Pulses equal, no cyanosis. Neurovascular intact. Full, normal range of motion. Neuro: Awake and alert, GCS 15, oriented to person, place, time, and situation. Cranial nerves II-XII grossly intact. Motor strength 5/5 in all extremities. Sensory grossly intact. Cerebellar exam normal. Normal gait. 15:24 Abdomen/GI: Inspection: distension, that is moderate, Bowel sounds: active, all quadrants, Palpation: soft, in all quadrants, mild abdominal tenderness, in all quadrants, Indicators: McBurney's point is not tender, Das's sign is negative, Rovsing's sign is negative, Liver: tenderness, is not appreciated. Vital Signs: 13:45 BP 119 / 82; Pulse 94; Resp 16; Temp 97.9(O); Pulse Ox 100% on R/A; Weight 90.26 kg; ss Height 5 ft. 7 in. (170.18 cm); 15:45 BP 111 / 81; Pulse 75; Resp 17; Pulse Ox 100% on R/A; Pain 0/10; rb1 16:33 BP 108 / 79; Pulse 77; Resp 19; Pulse Ox 100% on R/A; rb1 13:45 Body Mass Index 31.17 (90.26 kg, 170.18 cm) ss MDM: 13:50 Patient medically screened. [facility] 15:24 Data reviewed: vital signs, nurses notes, lab test result(s), radiologic studies, plain jr8 films. Data interpreted: Pulse oximetry: on room air is 100 %. Interpretation: normal. Counseling: I had a detailed discussion with the patient and/or guardian regarding: the historical points, exam findings, and any diagnostic results supporting the discharge/admit diagnosis, lab results, radiology results, the need for outpatient follow up, Hematology/Oncology. 16:09 ED course: Patient hemodynamically stable. No acute respiratory compromise. No large jr8 pleural effusions noted. Labs otherwise stable. Patient in no acute distress. Explained to her that we cannot admit for therapeutic paracentesis. Tried to see if they could fit her in today but was unable to. Scheduled outpatient appointment for patient through radiology and wrote scrip for patient. Patient has Wednesday 8am appointment with IR for US guided paracentesis. Patient happy with this. Knows to come back if she were to develop worsening of symptoms . 11/23 13:50 Order name: Basic Metabolic Panel; Complete Time: 15:24 11/23 13:50 Order name: CBC with Diff; Complete Time: 15:44 11/23 13:50 Order name: Creatinine for Radiology; Complete Time: 15:22 11/23 13:50 Order name: Hepatic Function; Complete Time: 15:24 11/23 13:50 Order name: Lipase; Complete Time: 15:24 11/23 14:02 Order name: Protime (+inr); Complete Time: 15:22 11/23 13:50 Order name: Labs collected and sent; Complete Time: 14:52 11/23 14:02 Order name: Ptt, Activated; Complete Time: 15:22 11/23 15:24 Order name: XRAY Chest (1 view); Complete Time: 16:26 11/23 15:39 Order name: CBC Smear Scan; Complete Time: 15:44 EDMS Administered Medications: No medications were administered Disposition: 18:31 Co-signature as Attending Physician, Hal Patino MD. rn Disposition: 11/23/19 16:15 Discharged to Home. Impression: Ascites. - Condition is Stable. - Discharge Instructions: Ascites. - Medication Reconciliation Form, Thank You Letter, Antibiotic Education, Prescription Opioid Use form. - Follow up: Private Physician; When: 1 week; Reason: Recheck today's complaints, Continuance of care, Re-evaluation by your physician. - Problem is new. - Symptoms are unchanged. Signatures: Dispatcher [employer] EDMS Hal Patino MD MD rn Pearl Peck RN RN Abdelrahman Panda PA PA jr8 Lavern Mckinney RN RN rb1 Corrections: (The following items were deleted from the chart) 16:17 13:50 IV Saline Lock ordered. jr8 rb1 16:35 16:15 11/23/2019 16:15 Discharged to Home. Impression: Ascites. Condition is Stable. rb1 Forms are Medication Reconciliation Form, Thank You Letter, Antibiotic Education, Prescription Opioid Use. Follow up: Private Physician; When: 1 week; Reason: Recheck today's complaints, Continuance of care, Re-evaluation by your physician. Problem is new. Symptoms are unchanged. jr8
--- NOTE | 2019-11-23 16:21 | RAD REPORT ---
EXAM DESCRIPTION: RAD - Chest Single View - 11/23/2019 4:09 pm CLINICAL HISTORY: Dyspnea COMPARISON: August 2019 CT imaging, March 2019 portable chest imaging TECHNIQUE: AP portable chest image was obtained 1547 hour . FINDINGS: Lung volumes are low. Left hemidiaphragm is obscured. Heart size is normal. Vasculature wi thin normal limits. Right-sided Port-A-Cath in place. No right-sided pleural effusion. Left base pleu ral and parenchymal opacification stable finding. No acute bony abnormality seen. No acute aortic fin dings suspected. IMPRESSION: Chronic left base pleural and parenchymal opacification stable back to March 2019.
[2019-11-23 16:49] VITALS: TEMP 97.9; O2SAT 100
[2019-11-23 16:52] VITALS: BP 108/79
== END 2019-11-23 16:35 | disposition home or self-care (01) ==
LOC: ER 13:20
DX: R18.8 Other ascites (principal); Z85.3 Personal history of malignant neoplasm of breast
CPT/HCPCS: 36415; 71045; 80048; 80076; 83690; 85025; 85610; 85730; 99284

== ENCOUNTER → 2019-11-27 | Day surgery (SDC) | payer OTHER ==
[~2019-11-27] MED LIST: ALBUMIN HUMAN 25% 200 ML IV ONE
--- OUTSIDE RECORDS SUMMARY | 2019-11-27 07:36 | XMS REPORT ---
:1955 [facility] [place] [address] Care Team Providers Name Role Phone DANIELLE [...] Comments WHITE BLOOD CELL COUNT (BEAKER) (test yqas=861) 5.1 K/ L 3.5-10.5 RED BLOOD CELL COUNT (BEAKER) (test aojj=204) 2.77 M/ L 3.93-5.22 HEMOGLOBIN (BEAKER) (test xwic=224) 8.4 GM/DL 11.2-15.7 HEMATOCRIT (BEAKER) (test vszg=087) 26.7 % 34.1-44.9 MEAN CORPUSCULAR VOLUME (BEAKER) (test zuiy=764) 96.4 fL 79.4-94.8 MEAN CORPUSCULAR HEMOGLOBIN (BEAKER) (test yrgf=494) 30.3 pg 25.6-32.2 MEAN CORPUSCULAR HEMOGLOBIN CONC (BEAKER) (test esca=029) 31.5 GM/DL 32.2- 35.5 RED CELL DISTRIBUTION WIDTH (BEAKER) (test krxb=471) 15.5 % 11.7-14.4 PLATELET COUNT (BEAKER) (test qawh=092) 179 K/CU MM 150-450 MEAN PLATELET VOLUME (BEAKER) (test jfcc=765) 10.2 fL 9.4-12.3 NUCLEATED RED BLOOD CELLS (BEAKER) (test fydn=958) 0 /100 WBC 0-0 (CELLAVISION MANUAL DIFF)2019-02-20 12:08:00 Test Item Value Reference Range Comments NEUTROPHILS - REL (CELLAVISION)(BEAKER) (test 86 % zvgv=0522) LYMPHOCYTES - REL (CELLAVISION)(BEAKER) (test 7 % ycxd=5426) MONOCYTES - REL (CELLAVISION)(BEAKER) (test 1 % ghns=4663) METAMYELOCYTES - REL (CELLAVISION)(BEAKER) (test 3 % 0-0 fjme=9198) BANDS - REL (CELLAVISION)(BEAKER) (test 3 % 0-10 xlow=3607) NEUTROPHILS - ABS (CELLAVISION)(BEAKER) (test 4.39 K/ul 1.56-6.13 qosl=2200) LYMPHOCYTES - ABS (CELLAVISION)(BEAKER) (test 0.36 K/ul 1.18-3.74 ccnx=9565) MONOCYTES - ABS (CELLAVISION)(BEAKER) (test 0.05 K/uL 0.24-0.36 swym=7276) METAMYELOCYTES - ABS (CELLAVISION)(BEAKER) (test 0.15 K/uL 0.00-0.00 wvwy=7885) BANDS - ABS (CELLAVISION)(BEAKER) (test 0.15 K/uL 0.00-0.80 vglh=4273) TOTAL COUNTED (BEAKER) (test nwyl=5978) 100 SMUDGE CELLS (BEAKER) (test hirm=8782) Present LARGE PLT(BEAKER) (test jagt=2029) Present ANISOCYTOSIS (BEAKER) (test tkhz=941) 1+ few POIKILOCYTES (BEAKER) (test olai=012) 1+ few SCHISTOCYTES (BEAKER) (test ahgd=130) 1+ few ELLIPTOCYTES (BEAKER) (test gqsk=206) 2+ moderate VIDHI CELLS (BEAKER) (test blqb=530) 2+ moderate ARTIFACT (CELLAVISION)(BEAKER) (test tuti=7386) Present PLATELET CONCENTRATION (CELLAVISION)(BEAKER) Adequate (test lndg=2638) Received comment: User comments: Slide comments: WBC: SEGMENTED WITH TOXIC GRANULATION PRESENTBASIC METABOLIC [id number] 07:54:00 Test Item Value Reference Range Comments SODIUM (BEAKER) (test 140 meq/L 136-145 hyhl=535) POTASSIUM (BEAKER) (test 3.4 meq/L 3.5-5.1 zjqy=121) CHLORIDE (BEAKER) (test 107 meq/L 98-107 xemz=558) CO2 (BEAKER) (test 26 meq/L 22-29 nbun=961) BLOOD UREA NITROGEN 14 mg/dL 7-21 (BEAKER) (test slip=979) CREATININE (BEAKER) (test 1.71 mg/dL 0.57-1.25 vjhv=739) GLUCOSE RANDOM (BEAKER) 104 mg/dL 70-105 (test htkq=877) CALCIUM (BEAKER) (test 7.8 mg/dL 8.4-10.2 pdlr=026) EGFR (BEAKER) (test 37 mL/min/1.73 sq m ESTIMATED GFR IS NOT vcxj=2647) ACCURATE CREATININE CLEARANCE IN PREDICTING GLOMERULAR FILTRATION RATE. ESTIMATED GFR IS NOT APPLICABLE FOR DIALYSIS PATIENTS. [id number] 07:48:00 Test Item Value Reference Range Comments PHOSPHORUS (BEAKER) (test bodu=773) 1.9 mg/dL 2.3-4.7 [id number] 07:48:00 Test Item Value Reference Range Comments MAGNESIUM (BEAKER) (test bvtj=658) 1.5 mg/dL 1.6-2.6 HEPATIC FUNCTION [id number] 07:48:00 Test Item Value Reference Range Comments TOTAL PROTEIN (BEAKER) (test cgqc=614) 5.4 gm/dL 6.0-8.3 ALBUMIN (BEAKER) (test dspq=8732) 2.9 g/dL 3.5-5.0 BILIRUBIN TOTAL (BEAKER) (test lyuj=005) 1.0 mg/dL 0.2-1.2 BILIRUBIN DIRECT (BEAKER) (test qfwi=226) 0.6 mg/dL 0.1-0.5 ALKALINE PHOSPHATASE (BEAKER) (test ryqk=953) 47 U/L 40-150 AST (SGOT) (BEAKER) (test dadn=772) 44 U/L 5-34 ALT (SGPT) (BEAKER) (test cqdh=284) 22 U/L 6-55 CREATINE KINASE (CK)2019-02-20 07:48:00 Test Item Value Reference Range Comments CREATINE KINASE TOTAL (BEAKER) (test zakr=493) 39 U/L 29-200 [id number] 07:48:00 Test Item Value Reference Range Comments PHOSPHORUS (BEAKER) (test hthk=765) 2.0 mg/dL 2.3-4.7 [id number] 07:48:00 Test Item Value Reference Range Comments MAGNESIUM (BEAKER) (test pcgq=971) 1.7 mg/dL 1.6-2.6 BASIC METABOLIC [id number] 07:48:00 Test Item Value Reference Range Comments SODIUM (BEAKER) (test 142 meq/L 136-145 stmc=252) POTASSIUM (BEAKER) (test 3.3 meq/L 3.5-5.1 agls=433) CHLORIDE (BEAKER) (test 106 meq/L 98-107 vson=626) CO2 (BEAKER) (test 26 meq/L 22-29 iyej=731) BLOOD UREA NITROGEN 19 mg/dL 7-21 (BEAKER) (test duof=603) CREATININE (BEAKER) (test 1.97 mg/dL 0.57-1.25 lwys=953) GLUCOSE RANDOM (BEAKER) 113 mg/dL 70-105 (test qodi=842) CALCIUM (BEAKER) (test 8.1 mg/dL 8.4-10.2 uvkn=056) EGFR (BEAKER) (test 31 mL/min/1.73 sq m ESTIMATED GFR IS NOT vevb=1987) ACCURATE CREATININE CLEARANCE IN PREDICTING GLOMERULAR FILTRATION RATE. ESTIMATED GFR IS NOT APPLICABLE FOR DIALYSIS PATIENTS. HEPATIC FUNCTION [id number] 07:48:00 Test Item Value Reference Range Comments TOTAL PROTEIN (BEAKER) (test kybh=842) 5.7 gm/dL 6.0-8.3 ALBUMIN (BEAKER) (test yikl=6014) 3.1 g/dL 3.5-5.0 BILIRUBIN TOTAL (BEAKER) (test fjra=141) 1.3 mg/dL 0.2-1.2 BILIRUBIN DIRECT (BEAKER) (test ebgo=245) 0.8 mg/dL 0.1-0.5 ALKALINE PHOSPHATASE (BEAKER) (test fudx=032) 51 U/L 40-150 AST (SGOT) (BEAKER) (test dncy=511) 30 U/L 5-34 ALT (SGPT) (BEAKER) (test ibqs=182) 15 U/L 6-55 CBC W/PLT COUNT & AUTO [id number] 07:29:00 Test Item Value Reference Range Comments WHITE BLOOD CELL COUNT (BEAKER) (test axgs=838) 5.5 K/ L 3.5-10.5 RED BLOOD CELL COUNT (BEAKER) (test sgbl=282) 2.97 M/ L 3.93-5.22 HEMOGLOBIN (BEAKER) (test zlqk=141) 9.2 GM/DL 11.2-15.7 HEMATOCRIT (BEAKER) (test xhrb=531) 27.9 % 34.1-44.9 MEAN CORPUSCULAR VOLUME (BEAKER) (test imtx=709) 93.9 fL 79.4-94.8 MEAN CORPUSCULAR HEMOGLOBIN (BEAKER) (test 31.0 pg 25.6-32.2 hhus=544) MEAN CORPUSCULAR HEMOGLOBIN CONC (BEAKER) (test 33.0 GM/DL 32.2-35.5 msiz=520) RED CELL DISTRIBUTION WIDTH (BEAKER) (test 15.9 % 11.7-14.4 lflp=968) PLATELET COUNT (BEAKER) (test eqpg=542) 177 K/CU MM 150-450 MEAN PLATELET VOLUME (BEAKER) (test qdqe=082) 10.0 fL 9.4-12.3 NUCLEATED RED BLOOD CELLS (BEAKER) (test 0 /100 WBC 0-0 risp=742) NEUTROPHILS RELATIVE PERCENT (BEAKER) (test 78 % idnd=225) LYMPHOCYTES RELATIVE PERCENT (BEAKER) (test 18 % deha=425) MONOCYTES RELATIVE PERCENT (BEAKER) (test 2 % jghz=642) EOSINOPHILS RELATIVE PERCENT (BEAKER) (test 1 % zkui=677) BASOPHILS RELATIVE PERCENT (BEAKER) (test 0 % qdtk=471) NEUTROPHILS ABSOLUTE COUNT (BEAKER) (test 4.29 K/ L 1.56-6.13 cgbk=278) LYMPHOCYTES ABSOLUTE COUNT (BEAKER) (test 1.00 K/ L 1.18-3.74 hxbe=301) MONOCYTES ABSOLUTE COUNT (BEAKER) (test 0.11 K/ L 0.24-0.36 xhjf=674) EOSINOPHILS ABSOLUTE COUNT (BEAKER) (test 0.04 K/ L 0.04-0.36 ozxu=053) BASOPHILS ABSOLUTE COUNT (BEAKER) (test 0.02 K/ L 0.01-0.08 pxcq=608) IMMATURE GRANULOCYTES-RELATIVE PERCENT (BEAKER) 0 % 0-1 (test uebd=8312) U/S, [id number] 17:56:00Reason for exam:->ascitesFINAL REPORT Ultrasound-guided paracentesis. Clinical History: Ascites Informed consent was obtained from the patient and the risks of the procedure were explained including bleeding, infection, bowel perforation and visceral injury. Sedation: 1% Xylocaine was used as local sedation. Conscious sedation protocol was not utilized as no systemic analgesia was administered. Technique: Using sterile technique, ultrasound guidance and a 5 Wolof coaxial needle, a single pass right lower [...] [place] Verified Date/Time: 02/18/2019 17:56:45 Reading Location: [address] Consult Reading Room [facility] MET[facility]OL[facility] [id number] 10:29:00 Test Item Value Reference Range Comments SODIUM (BEAKER) (test 136 meq/L 136-145 xodx=243) POTASSIUM (BEAKER) (test 3.2 meq/L 3.5-5.1 iyvg=038) CHLORIDE (BEAKER) (test 106 meq/L 98-107 eohj=113) CO2 (BEAKER) (test 21 meq/L 22-29 fuey=377) BLOOD UREA NITROGEN 21 mg/dL 7-21 (BEAKER) (test ssiz=877) CREATININE (BEAKER) (test 2.30 mg/dL 0.57-1.25 auwc=033) GLUCOSE RANDOM (BEAKER) 100 mg/dL 70-105 (test etio=965) CALCIUM (BEAKER) (test 7.9 mg/dL 8.4-10.2 xxio=428) EGFR (BEAKER) (test 26 mL/min/1.73 sq m ESTIMATED GFR IS NOT hgsr=8010) ACCURATE CREATININE CLEARANCE IN PREDICTING GLOMERULAR FILTRATION RATE. ESTIMATED GFR IS NOT APPLICABLE FOR DIALYSIS PATIENTS. [id number] 10:16:00 Test Item Value Reference Range Comments PHOSPHORUS (BEAKER) (test rzgb=332) 1.9 mg/dL 2.3-4.7 [id number] 10:16:00 Test Item Value Reference Range Comments MAGNESIUM (BEAKER) (test btnr=604) 2.0 mg/dL 1.6-2.6 HEPATIC FUNCTION [id number] 10:16:00 Test Item Value Reference Range Comments TOTAL PROTEIN (BEAKER) (test cqmo=809) 6.6 gm/dL 6.0-8.3 ALBUMIN (BEAKER) (test koqc=6574) 3.3 g/dL 3.5-5.0 BILIRUBIN TOTAL (BEAKER) (test cyci=095) 1.2 mg/dL 0.2-1.2 BILIRUBIN DIRECT (BEAKER) (test dhhv=937) 0.6 mg/dL 0.1-0.5 ALKALINE PHOSPHATASE (BEAKER) (test xfez=505) 51 U/L 40-150 AST (SGOT) (BEAKER) (test eswz=393) 30 U/L 5-34 ALT (SGPT) (BEAKER) (test dayg=941) 16 U/L 6-55 [id number] 06:55:00 Test Item Value Reference Range Comments PROTIME (BEAKER) (test lgsh=402) 15.1 seconds 11.7-14.7 INR (BEAKER) (test tgea=519) 1.2 <=5.9 PARTIAL THROMBOPLASTIN TIME (BEAKER) (test 31.5 seconds 22.5-36.0 fsfn=308) RECOMMENDED COUMADIN/WARFARIN INR THERAPY RANGESSTANDARD DOSE: 2.0 - 3.0 Includes: PROPHYLAXIS forvenous thrombosis, systemic embolization; TREATMENT for venous thrombosis and/or pulmonary embolus.HIGH RISK: Target INR is 2.5-3.5 for patients with mechanical heart valves.For paracentesisFor paracentesisCBC W/PLT COUNT & AUTO [id number] 06:51:00 Test Item Value Reference Range Comments WHITE BLOOD CELL COUNT (BEAKER) (test sxsz=929) 6.0 K/ L 3.5-10.5 RED BLOOD CELL COUNT (BEAKER) (test sron=845) 2.89 M/ L 3.93-5.22 HEMOGLOBIN (BEAKER) (test alga=780) 8.9 GM/DL 11.2-15.7 HEMATOCRIT (BEAKER) (test njeg=532) 27.4 % 34.1-44.9 MEAN CORPUSCULAR VOLUME (BEAKER) (test qgsr=310) 94.8 fL 79.4-94.8 MEAN CORPUSCULAR HEMOGLOBIN (BEAKER) (test 30.8 pg 25.6-32.2 cmba=563) MEAN CORPUSCULAR HEMOGLOBIN CONC (BEAKER) (test 32.5 GM/DL 32.2-35.5 xlgt=966) RED CELL DISTRIBUTION WIDTH (BEAKER) (test 16.2 % 11.7-14.4 edau=780) PLATELET COUNT (BEAKER) (test eyoa=264) 161 K/CU MM 150-450 MEAN PLATELET VOLUME (BEAKER) (test hbnd=967) 9.8 fL 9.4-12.3 NUCLEATED RED BLOOD CELLS (BEAKER) (test 0 /100 WBC 0-0 httd=810) NEUTROPHILS RELATIVE PERCENT (BEAKER) (test 77 % rlfj=600) LYMPHOCYTES RELATIVE PERCENT (BEAKER) (test 18 % azlq=780) MONOCYTES RELATIVE PERCENT (BEAKER) (test 4 % enrk=659) EOSINOPHILS RELATIVE PERCENT (BEAKER) (test 1 % wavj=076) BASOPHILS RELATIVE PERCENT (BEAKER) (test 0 % utdh=578) NEUTROPHILS ABSOLUTE COUNT (BEAKER) (test 4.64 K/ L 1.56-6.13 wnzk=004) LYMPHOCYTES ABSOLUTE COUNT (BEAKER) (test 1.10 K/ L 1.18-3.74 hrkf=680) MONOCYTES ABSOLUTE COUNT (BEAKER) (test 0.23 K/ L 0.24-0.36 xrra=321) EOSINOPHILS ABSOLUTE COUNT (BEAKER) (test 0.03 K/ L 0.04-0.36 lesv=517) BASOPHILS ABSOLUTE COUNT (BEAKER) (test 0.01 K/ L 0.01-0.08 vhbe=867) IMMATURE GRANULOCYTES-RELATIVE PERCENT (BEAKER) 1 % 0-1 (test vgzw=8999) BASIC METABOLIC [id number] 09:31:00 Test Item Value Reference Range Comments SODIUM (BEAKER) (test 139 meq/L 136-145 fkra=799) POTASSIUM (BEAKER) (test 3.5 meq/L 3.5-5.1 qnfs=651) CHLORIDE (BEAKER) (test 106 meq/L 98-107 rboq=054) CO2 (BEAKER) (test 23 meq/L 22-29 clmk=122) BLOOD UREA NITROGEN 20 mg/dL 7-21 (BEAKER) (test vxxw=675) CREATININE (BEAKER) (test 2.29 mg/dL 0.57-1.25 drsy=915) GLUCOSE RANDOM (BEAKER) 130 mg/dL 70-105 (test ahyy=214) CALCIUM (BEAKER) (test 7.8 mg/dL 8.4-10.2 oyvr=255) EGFR (BEAKER) (test 26 mL/min/1.73 sq m ESTIMATED GFR IS NOT lnqf=8283) ACCURATE CREATININE CLEARANCE IN PREDICTING GLOMERULAR FILTRATION RATE. ESTIMATED GFR IS NOT APPLICABLE FOR DIALYSIS PATIENTS. COMPREHENSIVE METABOLIC [id number] 09:31:00 Test Item Value Reference Range Comments TOTAL PROTEIN (BEAKER) 5.9 gm/dL 6.0-8.3 (test pzdy=260) ALBUMIN (BEAKER) (test 3.2 g/dL 3.5-5.0 fqdq=0008) ALKALINE PHOSPHATASE 46 U/L 40-150 (BEAKER) (test luck=529) BILIRUBIN TOTAL (BEAKER) 0.8 mg/dL 0.2-1.2 (test jlfa=550) SODIUM (BEAKER) (test 139 meq/L 136-145 nmxc=966) POTASSIUM (BEAKER) (test 3.5 meq/L 3.5-5.1 hina=055) CHLORIDE (BEAKER) (test 106 meq/L 98-107 gdhz=215) CO2 (BEAKER) (test 23 meq/L 22-29 qnfx=150) BLOOD UREA NITROGEN 20 mg/dL 7-21 (BEAKER) (test ybpn=429) CREATININE (BEAKER) (test 2.29 mg/dL 0.57-1.25 gqqa=463) GLUCOSE RANDOM (BEAKER) 130 mg/dL 70-105 (test lcze=780) CALCIUM (BEAKER) (test 7.8 mg/dL 8.4-10.2 wmwe=681) AST (SGOT) (BEAKER) (test 32 U/L 5-34 yheu=985) ALT (SGPT) (BEAKER) (test 16 U/L 6-55 cymr=425) EGFR (BEAKER) (test 26 mL/min/1.73 sq m ESTIMATED GFR IS NOT ofry=4881) ACCURATE CREATININE CLEARANCE IN PREDICTING GLOMERULAR FILTRATION RATE. ESTIMATED GFR IS NOT APPLICABLE FOR DIALYSIS PATIENTS. [id number] 09:30:00 Test Item Value Reference Range Comments PHOSPHORUS (BEAKER) (test qtxy=304) 2.5 mg/dL 2.3-4.7 URIC [id number] 09:30:00 Test Item Value Reference Range Comments URIC ACID (BEAKER) (test xjig=099) 8.7 mg/dL 2.6-7.2 HEPATIC FUNCTION [id number] 09:30:00 Test Item Value Reference Range Comments TOTAL PROTEIN (BEAKER) (test lubb=915) 5.9 gm/dL 6.0-8.3 ALBUMIN (BEAKER) (test upiv=2049) 3.2 g/dL 3.5-5.0 BILIRUBIN TOTAL (BEAKER) (test qmri=800) 0.8 mg/dL 0.2-1.2 BILIRUBIN DIRECT (BEAKER) (test feje=647) 0.5 mg/dL 0.1-0.5 ALKALINE PHOSPHATASE (BEAKER) (test zvzt=158) 46 U/L 40-150 AST (SGOT) (BEAKER) (test wtlk=246) 32 U/L 5-34 ALT (SGPT) (BEAKER) (test zkft=181) 16 U/L 6-55 CALCIUM, [id number] 08:41:00 Test Item Value Reference Range Comments CALCIUM IONIZED (BEAKER) (test rgkv=411) 0.92 mmol/L 1.12-1.27 PH, BLOOD (BEAKER) (test ngmp=3762) 7.41 [id number] 08:38:00 Test Item Value Reference Range Comments MAGNESIUM (BEAKER) (test cvqa=382) 1.8 mg/dL 1.6-2.6 CBC W/PLT COUNT & AUTO [id number] 08:34:00 Test Item Value Reference Range Comments WHITE BLOOD CELL COUNT (BEAKER) (test ujpj=099) 6.1 K/ L 3.5-10.5 RED BLOOD CELL COUNT (BEAKER) (test dhez=846) 2.29 M/ L 3.93-5.22 HEMOGLOBIN (BEAKER) (test rhqe=866) 7.1 GM/DL 11.2-15.7 HEMATOCRIT (BEAKER) (test qffd=952) 22.6 % 34.1-44.9 MEAN CORPUSCULAR VOLUME (BEAKER) (test qeyj=000) 98.7 fL 79.4-94.8 MEAN CORPUSCULAR HEMOGLOBIN (BEAKER) (test 31.0 pg 25.6-32.2 wjnm=544) MEAN CORPUSCULAR HEMOGLOBIN CONC (BEAKER) (test 31.4 GM/DL 32.2-35.5 guiu=516) RED CELL DISTRIBUTION WIDTH (BEAKER) (test 13.9 % 11.7-14.4 hbfv=063) PLATELET COUNT (BEAKER) (test nwlj=406) 193 K/CU MM 150-450 MEAN PLATELET VOLUME (BEAKER) (test opom=957) 9.0 fL 9.4-12.3 NUCLEATED RED BLOOD CELLS (BEAKER) (test 0 /100 WBC 0-0 pjvu=649) NEUTROPHILS RELATIVE PERCENT (BEAKER) (test 80 % hqij=371) LYMPHOCYTES RELATIVE PERCENT (BEAKER) (test 16 % fehi=451) MONOCYTES RELATIVE PERCENT (BEAKER) (test 4 % ehwq=621) EOSINOPHILS RELATIVE PERCENT (BEAKER) (test 0 % bcyo=807) BASOPHILS RELATIVE PERCENT (BEAKER) (test 0 % mkns=292) NEUTROPHILS ABSOLUTE COUNT (BEAKER) (test 4.88 K/ L 1.56-6.13 sybe=095) LYMPHOCYTES ABSOLUTE COUNT (BEAKER) (test 0.95 K/ L 1.18-3.74 nteb=200) MONOCYTES ABSOLUTE COUNT (BEAKER) (test 0.23 K/ L 0.24-0.36 hsls=437) EOSINOPHILS ABSOLUTE COUNT (BEAKER) (test 0.00 K/ L 0.04-0.36 kesu=940) BASOPHILS ABSOLUTE COUNT (BEAKER) (test 0.01 K/ L 0.01-0.08 voqs=367) IMMATURE GRANULOCYTES-RELATIVE PERCENT (BEAKER) 1 % 0-1 (test slsi=7207) C. DIFFICILE GDH [id number] 19:27:00 Test Item Value Reference Range Comments CDT TOXIN (test Negative Negative ufcm=[id number]) CDT GDH ANTIGEN (test Negative Negative No indication of Clostridium vuwu=[id number]) difficile infection and no colonization. Discontinue enteric isolation and therapy. Testing performed by [facility] Rapid Cassette Assay. For GDH, published sensitivity of the assay is 98.7% compared to cytotoxicity testing. For Toxin AB, published sensitivity is 87.8% and specificity 99.4% compared to cytotoxicity testing.Verification of kit performance was done by the [facility] Microbiology Lab prior to clinical use.CBC W/PLT COUNT & AUTO [id number] 13:33:00 Test Item Value Reference Range Comments WHITE BLOOD CELL COUNT (BEAKER) (test dgdm=756) 7.3 K/ L 3.5-10.5 RED BLOOD CELL COUNT (BEAKER) (test plhr=807) 2.43 M/ L 3.93-5.22 HEMOGLOBIN (BEAKER) (test gejy=042) 7.6 GM/DL 11.2-15.7 HEMATOCRIT (BEAKER) (test fpkf=120) 24.4 % 34.1-44.9 MEAN CORPUSCULAR VOLUME (BEAKER) (test iczx=871) 100.4 fL 79.4-94.8 MEAN CORPUSCULAR HEMOGLOBIN (BEAKER) (test 31.3 pg 25.6-32.2 psxc=156) MEAN CORPUSCULAR HEMOGLOBIN CONC (BEAKER) (test 31.1 GM/DL 32.2-35.5 ffof=279) RED CELL DISTRIBUTION WIDTH (BEAKER) (test 14.1 % 11.7-14.4 lyox=048) PLATELET COUNT (BEAKER) (test xxxu=990) 214 K/CU MM 150-450 MEAN PLATELET VOLUME (BEAKER) (test ecsn=549) 8.7 fL 9.4-12.3 NUCLEATED RED BLOOD CELLS (BEAKER) (test 0 /100 WBC 0-0 tadh=207) (MANUAL DIFFERENTIAL)[id number] 13:33:00 Test Item Value Reference Range Comments NEUTROPHILS - REL (DIFF) (BEAKER) (test zona=0217) 74 % LYMPHOCYTES - REL (DIFF) (BEAKER) (test kvvs=2565) 14 % MONOCYTES - REL (DIFF) (BEAKER) (test eusb=6643) 10 % EOSINOPHILS - REL (DIFF) (BEAKER) (test oiez=3413) 1 % BASOPHILS - REL (DIFF) (BEAKER) (test skxl=2291) 1 % NEUTROPHILS - ABS (DIFF) (BEAKER) (test zuyo=0579) 5.40 K/ L 1.80-8.00 LYMPHOCYTES - ABS (DIFF) (BEAKER) (test oadt=7904) 1.02 K/ L 1.48-4.50 MONOCYTES - ABS (DIFF) (BEAKER) (test nkbp=2460) 0.73 K/ L 0.00-1.30 EOSINOPHILS - ABS (DIFF) (BEAKER) (test twtk=4662) 0.07 K/ L 0.00-0.50 BASOPHILS - ABS (DIFF) (BEAKER) (test exvl=1258) 0.07 K/ L 0.00-0.20 TOTAL COUNTED (BEAKER) (test ymjd=3536) 100 WBC MORPHOLOGY (BEAKER) (test xzfi=867) Normal PLT MORPHOLOGY (BEAKER) (test lwmr=195) Normal RBC MORPHOLOGY (BEAKER) (test ukdg=924) Normal CALCIUM, [id number] 08:55:00 Test Item Value Reference Range Comments CALCIUM IONIZED (BEAKER) (test iqrb=096) 0.81 mmol/L 1.12-1.27 PH, BLOOD (BEAKER) (test mwio=1859) 7.38 COMPREHENSIVE METABOLIC [id number] 07:16:00 Test Item Value Reference Range Comments TOTAL PROTEIN (BEAKER) 6.3 gm/dL 6.0-8.3 (test fgjn=871) ALBUMIN (BEAKER) (test 3.5 g/dL 3.5-5.0 imiq=5726) ALKALINE PHOSPHATASE 39 U/L 40-150 (BEAKER) (test mcmg=034) BILIRUBIN TOTAL (BEAKER) 1.3 mg/dL 0.2-1.2 (test kguu=380) SODIUM (BEAKER) (test 140 meq/L 136-145 dysx=191) POTASSIUM (BEAKER) (test 3.6 meq/L 3.5-5.1 oobz=716) CHLORIDE (BEAKER) (test 109 meq/L 98-107 fxwc=421) CO2 (BEAKER) (test 19 meq/L 22-29 mnng=909) BLOOD UREA NITROGEN 16 mg/dL 7-21 (BEAKER) (test kyic=974) CREATININE (BEAKER) (test 2.52 mg/dL 0.57-1.25 cgxm=486) GLUCOSE RANDOM (BEAKER) 116 mg/dL 70-105 (test pyxl=108) CALCIUM (BEAKER) (test 8.4 mg/dL 8.4-10.2 psdo=297) AST (SGOT) (BEAKER) (test 25 U/L 5-34 kxgr=912) ALT (SGPT) (BEAKER) (test 13 U/L 6-55 gjmp=542) EGFR (BEAKER) (test 23 mL/min/1.73 sq m ESTIMATED GFR IS NOT tcff=2939) ACCURATE CREATININE CLEARANCE IN PREDICTING GLOMERULAR FILTRATION RATE. ESTIMATED GFR IS NOT APPLICABLE FOR DIALYSIS PATIENTS. BASIC METABOLIC [id number] 07:15:00 Test Item Value Reference Range Comments SODIUM (BEAKER) (test 140 meq/L 136-145 qmtx=256) POTASSIUM (BEAKER) (test 3.6 meq/L 3.5-5.1 ksvc=507) CHLORIDE (BEAKER) (test 109 meq/L 98-107 brye=231) CO2 (BEAKER) (test 19 meq/L 22-29 ypyd=805) BLOOD UREA NITROGEN 16 mg/dL 7-21 (BEAKER) (test lfhb=285) CREATININE (BEAKER) (test 2.52 mg/dL 0.57-1.25 ybem=228) GLUCOSE RANDOM (BEAKER) 116 mg/dL 70-105 (test vysb=914) CALCIUM (BEAKER) (test 8.4 mg/dL 8.4-10.2 pcjc=104) EGFR (BEAKER) (test 23 mL/min/1.73 sq m ESTIMATED GFR IS NOT nyhb=4842) ACCURATE CREATININE CLEARANCE IN PREDICTING GLOMERULAR FILTRATION RATE. ESTIMATED GFR IS NOT APPLICABLE FOR DIALYSIS PATIENTS. [id number] 07:10:00 Test Item Value Reference Range Comments PHOSPHORUS (BEAKER) (test zasa=367) 1.9 mg/dL 2.3-4.7 [id number] 07:10:00 Test Item Value Reference Range Comments MAGNESIUM (BEAKER) (test rnak=871) 1.9 mg/dL 1.6-2.6 HEPATIC FUNCTION [id number] 07:10:00 Test Item Value Reference Range Comments TOTAL PROTEIN (BEAKER) (test szsa=172) 6.3 gm/dL 6.0-8.3 ALBUMIN (BEAKER) (test nqra=7019) 3.5 g/dL 3.5-5.0 BILIRUBIN TOTAL (BEAKER) (test kbsn=939) 1.3 mg/dL 0.2-1.2 BILIRUBIN DIRECT (BEAKER) (test iere=245) 0.8 mg/dL 0.1-0.5 ALKALINE PHOSPHATASE (BEAKER) (test utru=311) 39 U/L 40-150 AST (SGOT) (BEAKER) (test qfha=542) 25 U/L 5-34 ALT (SGPT) (BEAKER) (test ruji=372) 13 U/L 6-55 RAD, CHEST, 1 VIEW, NON [id number] 21:33:00Reason for exam:->PICC LINE TIP VERIFICATIONShould this [...] MDReport Verified Date/Time: 02/15 21:33:22 Reading Location: [address] Reading Room CBC W/PLT COUNT & AUTO [id number] 11:37:00 Test Item Value Reference Range Comments WHITE BLOOD CELL COUNT (BEAKER) (test ylqr=442) 7.1 K/ L 3.5-10.5 RED BLOOD CELL COUNT (BEAKER) (test ynzd=588) 2.43 M/ L 3.93-5.22 HEMOGLOBIN (BEAKER) (test bvpq=882) 7.7 GM/DL 11.2-15.7 HEMATOCRIT (BEAKER) (test jsdw=659) 24.3 % 34.1-44.9 MEAN CORPUSCULAR VOLUME (BEAKER) (test lbes=570) 100.0 fL 79.4-94.8 MEAN CORPUSCULAR HEMOGLOBIN (BEAKER) (test 31.7 pg 25.6-32.2 oyjc=926) MEAN CORPUSCULAR HEMOGLOBIN CONC (BEAKER) (test 31.7 GM/DL 32.2-35.5 mpct=040) RED CELL DISTRIBUTION WIDTH (BEAKER) (test 13.8 % 11.7-14.4 rgjl=466) PLATELET COUNT (BEAKER) (test kctn=108) 216 K/CU MM 150-450 MEAN PLATELET VOLUME (BEAKER) (test xvzd=730) 8.8 fL 9.4-12.3 NUCLEATED RED BLOOD CELLS (BEAKER) (test 0 /100 WBC 0-0 csqi=934) (CELLAVISION MANUAL DIFF)[id number] 11:37:00 Test Item Value Reference Range Comments NEUTROPHILS - REL (CELLAVISION)(BEAKER) (test 75 % grcp=7101) LYMPHOCYTES - REL (CELLAVISION)(BEAKER) (test 20 % mtvr=4698) MONOCYTES - REL (CELLAVISION)(BEAKER) (test 4 % uqbk=3419) ATYPICAL LYMPHOCYTES - REL (CELLAVISION)(BEAKER) 1 % 0-0 (test kjei=3231) NEUTROPHILS - ABS (CELLAVISION)(BEAKER) (test 5.33 K/ul 1.56-6.13 ykws=5299) LYMPHOCYTES - ABS (CELLAVISION)(BEAKER) (test 1.42 K/ul 1.18-3.74 qezw=2082) MONOCYTES - ABS (CELLAVISION)(BEAKER) (test 0.28 K/uL 0.24-0.36 jwvw=3656) ATYPICAL LYMPHOCYTES - ABS (CELLAVISION)(BEAKER) 0.07 K/uL 0.00-0.00 (test eemq=4897) TOTAL COUNTED (BEAKER) (test dxpg=2149) 100 WBC MORPHOLOGY (BEAKER) (test hqyl=628) Normal LARGE PLT(BEAKER) (test wbsm=8056) Present POLYCHROMATOPHILLIC RBCS(BEAKER) (test yflb=446) 1+ few HYPOCHROMIA (BEAKER) (test vaoo=380) 1+ few ARTIFACT (CELLAVISION)(BEAKER) (test crqf=7487) Present PLATELET CONCENTRATION (CELLAVISION)(BEAKER) (test Adequate xqfi=9293) Received comment: User comments: Slide comments:CREATININE, RANDOM [id number] 08:13:00 Test Item Value Reference Range Comments CREATININE URINE (BEAKER) (test gsnu=995) 166.6 mg/dL Reference Range: No NormalsPROTEIN, RANDOM [id number] 07:32:00 Test Item Value Reference Range Comments PROTEIN, URINE (BEAKER) (test pypk=1430) 58 mg/dL 0-14 CALCIUM, [id number] 07:05:00 Test Item Value Reference Range Comments CALCIUM IONIZED (BEAKER) (test nejh=833) 0.72 mmol/L 1.12-1.27 PH, BLOOD (BEAKER) (test shhj=7901) 7.50 CBC W/PLT COUNT & AUTO [id number] 06:47:00 Test Item Value Reference Range Comments WHITE BLOOD CELL COUNT (BEAKER) (test ffru=835) 7.2 K/ L 3.5-10.5 RED BLOOD CELL COUNT (BEAKER) (test qzbg=395) 2.42 M/ L 3.93-5.22 HEMOGLOBIN (BEAKER) (test cprk=104) 7.5 GM/DL 11.2-15.7 HEMATOCRIT (BEAKER) (test ogwi=089) 24.2 % 34.1-44.9 MEAN CORPUSCULAR VOLUME (BEAKER) (test bwal=051) 100.0 fL 79.4-94.8 MEAN CORPUSCULAR HEMOGLOBIN (BEAKER) (test 31.0 pg 25.6-32.2 zovh=154) MEAN CORPUSCULAR HEMOGLOBIN CONC (BEAKER) (test 31.0 GM/DL 32.2-35.5 bhjn=875) RED CELL DISTRIBUTION WIDTH (BEAKER) (test 14.0 % 11.7-14.4 nzua=983) PLATELET COUNT (BEAKER) (test dphn=592) 220 K/CU MM 150-450 MEAN PLATELET VOLUME (BEAKER) (test xxyh=962) 8.5 fL 9.4-12.3 NUCLEATED RED BLOOD CELLS (BEAKER) (test 0 /100 WBC 0-0 ydzm=545) NEUTROPHILS RELATIVE PERCENT (BEAKER) (test 69 % gnvt=639) LYMPHOCYTES RELATIVE PERCENT (BEAKER) (test 22 % gdza=133) MONOCYTES RELATIVE PERCENT (BEAKER) (test 7 % klyx=181) EOSINOPHILS RELATIVE PERCENT (BEAKER) (test 1 % nncj=995) BASOPHILS RELATIVE PERCENT (BEAKER) (test 1 % nnrt=321) NEUTROPHILS ABSOLUTE COUNT (BEAKER) (test 4.98 K/ L 1.56-6.13 lwcd=902) LYMPHOCYTES ABSOLUTE COUNT (BEAKER) (test 1.60 K/ L 1.18-3.74 yzij=713) MONOCYTES ABSOLUTE COUNT (BEAKER) (test 0.53 K/ L 0.24-0.36 jrmi=456) EOSINOPHILS ABSOLUTE COUNT (BEAKER) (test 0.04 K/ L 0.04-0.36 xkko=772) BASOPHILS ABSOLUTE COUNT (BEAKER) (test 0.04 K/ L 0.01-0.08 mftb=846) IMMATURE GRANULOCYTES-RELATIVE PERCENT (BEAKER) 0 % 0-1 (test bmqo=9283) COMPREHENSIVE METABOLIC [id number] 06:39:00 Test Item Value Reference Range Comments TOTAL PROTEIN (BEAKER) 6.4 gm/dL 6.0-8.3 (test mtle=169) ALBUMIN (BEAKER) (test 3.6 g/dL 3.5-5.0 tody=5789) ALKALINE PHOSPHATASE 32 U/L 40-150 (BEAKER) (test bcha=824) BILIRUBIN TOTAL (BEAKER) 1.4 mg/dL 0.2-1.2 (test ebiz=028) SODIUM (BEAKER) (test 140 meq/L 136-145 udsr=755) POTASSIUM (BEAKER) (test 3.8 meq/L 3.5-5.1 uoqt=494) CHLORIDE (BEAKER) (test 110 meq/L 98-107 sxar=652) CO2 (BEAKER) (test 19 meq/L 22-29 lhfq=154) BLOOD UREA NITROGEN 15 mg/dL 7-21 (BEAKER) (test qjni=271) CREATININE (BEAKER) (test 2.30 mg/dL 0.57-1.25 xuar=748) GLUCOSE RANDOM (BEAKER) 102 mg/dL 70-105 (test ptjx=453) CALCIUM (BEAKER) (test 8.0 mg/dL 8.4-10.2 pveu=017) AST (SGOT) (BEAKER) (test 17 U/L 5-34 uqbf=854) ALT (SGPT) (BEAKER) (test 9 U/L 6-55 vncv=433) EGFR (BEAKER) (test 26 mL/min/1.73 sq m ESTIMATED GFR IS NOT gpmu=7010) ACCURATE CREATININE CLEARANCE IN PREDICTING GLOMERULAR FILTRATION RATE. ESTIMATED GFR IS NOT APPLICABLE FOR DIALYSIS PATIENTS. HEPATIC FUNCTION [id number] 06:23:00 Test Item Value Reference Range Comments TOTAL PROTEIN (BEAKER) (test cssq=567) 6.4 gm/dL 6.0-8.3 ALBUMIN (BEAKER) (test mvmu=3018) 3.6 g/dL 3.5-5.0 BILIRUBIN TOTAL (BEAKER) (test oubr=190) 1.3 mg/dL 0.2-1.2 BILIRUBIN DIRECT (BEAKER) (test ktyb=391) 0.7 mg/dL 0.1-0.5 ALKALINE PHOSPHATASE (BEAKER) (test wdyu=004) 34 U/L 40-150 AST (SGOT) (BEAKER) (test zsmr=108) 19 U/L 5-34 ALT (SGPT) (BEAKER) (test qvwj=577) 8 U/L 6-55 [id number] 06:22:00 Test Item Value Reference Range Comments PHOSPHORUS (BEAKER) (test xajf=572) 2.3 mg/dL 2.3-4.7 [id number] 06:22:00 Test Item Value Reference Range Comments MAGNESIUM (BEAKER) (test obku=085) 2.2 mg/dL 1.6-2.6 HEPATIC FUNCTION [id number] 06:22:00 Test Item Value Reference Range Comments TOTAL PROTEIN (BEAKER) (test bwym=192) 6.4 gm/dL 6.0-8.3 ALBUMIN (BEAKER) (test zesr=7087) 3.6 g/dL 3.5-5.0 BILIRUBIN TOTAL (BEAKER) (test vbla=070) 1.4 mg/dL 0.2-1.2 BILIRUBIN DIRECT (BEAKER) (test ipzi=317) 0.7 mg/dL 0.1-0.5 ALKALINE PHOSPHATASE (BEAKER) (test yjar=772) 32 U/L 40-150 AST (SGOT) (BEAKER) (test nqfg=215) 17 U/L 5-34 ALT (SGPT) (BEAKER) (test yfzl=078) 9 U/L 6-55 BLOOD [id number] 20:01:00 Test Item Value Reference Range Comments CULTURE (BEAKER) (test pjel=4499) No growth in 5 days HEMOGLOBIN AND [id number] 13:02:00 Test Item Value Reference Range Comments HEMOGLOBIN (BEAKER) (test vcmv=280) 8.1 GM/DL 11.2-15.7 HEMATOCRIT (BEAKER) (test umsc=908) 25.7 % 34.1-44.9 ANTI-MITOCHONDRIAL AB, REFLEX TO [id number] 12:19:00 Test Item Value Reference Range Comments SCAN RESULT (test payf=[id number]) [id number] 07:43:00 Test Item Value Reference Range Comments PHOSPHORUS (BEAKER) (test ndtl=773) 1.3 mg/dL 2.3-4.7 CALCIUM, [id number] 06:25:00 Test Item Value Reference Range Comments CALCIUM IONIZED (BEAKER) (test wcgb=626) 1.05 mmol/L 1.12-1.27 PH, BLOOD (BEAKER) (test dwdh=0557) 7.44 COMPREHENSIVE METABOLIC [id number] 06:24:00 Test Item Value Reference Range Comments TOTAL PROTEIN (BEAKER) 6.3 gm/dL 6.0-8.3 (test ljni=872) ALBUMIN (BEAKER) (test 3.8 g/dL 3.5-5.0 jnts=7471) ALKALINE PHOSPHATASE 31 U/L 40-150 (BEAKER) (test gmim=726) BILIRUBIN TOTAL (BEAKER) 1.3 mg/dL 0.2-1.2 (test igmv=873) SODIUM (BEAKER) (test 141 meq/L 136-145 tkrq=475) POTASSIUM (BEAKER) (test 3.5 meq/L 3.5-5.1 euxj=388) CHLORIDE (BEAKER) (test 110 meq/L 98-107 xjdi=785) CO2 (BEAKER) (test 22 meq/L 22-29 okob=650) BLOOD UREA NITROGEN 13 mg/dL 7-21 (BEAKER) (test nhkw=673) CREATININE (BEAKER) (test 2.36 mg/dL 0.57-1.25 rzlg=793) GLUCOSE RANDOM (BEAKER) 108 mg/dL 70-105 (test trhe=472) CALCIUM (BEAKER) (test 8.2 mg/dL 8.4-10.2 mbuh=584) AST (SGOT) (BEAKER) (test 14 U/L 5-34 jeuz=039) ALT (SGPT) (BEAKER) (test 6 U/L 6-55 kcch=974) EGFR (BEAKER) (test 25 mL/min/1.73 sq m ESTIMATED GFR IS NOT czad=3458) ACCURATE CREATININE CLEARANCE IN PREDICTING GLOMERULAR FILTRATION RATE. ESTIMATED GFR IS NOT APPLICABLE FOR DIALYSIS PATIENTS. [id number] 06:17:00 Test Item Value Reference Range Comments MAGNESIUM (BEAKER) (test amuv=577) 2.2 mg/dL 1.6-2.6 CBC W/PLT COUNT & AUTO [id number] 05:33:00 Test Item Value Reference Range Comments WHITE BLOOD CELL COUNT (BEAKER) (test lvze=732) 5.8 K/ L 3.5-10.5 RED BLOOD CELL COUNT (BEAKER) (test uhim=272) 2.22 M/ L 3.93-5.22 HEMOGLOBIN (BEAKER) (test ikwn=913) 7.0 GM/DL 11.2-15.7 HEMATOCRIT (BEAKER) (test dafn=723) 22.5 % 34.1-44.9 MEAN CORPUSCULAR VOLUME (BEAKER) (test smaz=644) 101.4 fL 79.4-94.8 MEAN CORPUSCULAR HEMOGLOBIN (BEAKER) (test 31.5 pg 25.6-32.2 qmop=944) MEAN CORPUSCULAR HEMOGLOBIN CONC (BEAKER) (test 31.1 GM/DL 32.2-35.5 nejy=907) RED CELL DISTRIBUTION WIDTH (BEAKER) (test 13.6 % 11.7-14.4 wgdg=722) PLATELET COUNT (BEAKER) (test kegn=874) 169 K/CU MM 150-450 MEAN PLATELET VOLUME (BEAKER) (test wmqh=837) 8.5 fL 9.4-12.3 NUCLEATED RED BLOOD CELLS (BEAKER) (test 0 /100 WBC 0-0 eoqy=379) NEUTROPHILS RELATIVE PERCENT (BEAKER) (test 67 % rebs=313) LYMPHOCYTES RELATIVE PERCENT (BEAKER) (test 22 % nyql=249) MONOCYTES RELATIVE PERCENT (BEAKER) (test 9 % larf=676) EOSINOPHILS RELATIVE PERCENT (BEAKER) (test 1 % gfzr=056) BASOPHILS RELATIVE PERCENT (BEAKER) (test 1 % ocxl=831) NEUTROPHILS ABSOLUTE COUNT (BEAKER) (test 3.84 K/ L 1.56-6.13 behm=351) LYMPHOCYTES ABSOLUTE COUNT (BEAKER) (test 1.28 K/ L 1.18-3.74 gzwk=629) MONOCYTES ABSOLUTE COUNT (BEAKER) (test 0.50 K/ L 0.24-0.36 bjtx=986) EOSINOPHILS ABSOLUTE COUNT (BEAKER) (test 0.07 K/ L 0.04-0.36 kjmg=220) BASOPHILS ABSOLUTE COUNT (BEAKER) (test 0.06 K/ L 0.01-0.08 oizd=642) IMMATURE GRANULOCYTES-RELATIVE PERCENT (BEAKER) 0 % 0-1 (test qnoe=7176) RAD, CHEST, 1 VIEW, NON [id number] 12:56:00Reason for exam:->edemaShould this be performed at [...] MDReport Verified Date/Time: 2018 12:56:07 Reading Location: [facility] [address] Mammo Reading Room [id number] 11:09: 00Medical Cytology Report Case: [id number] Authorizing Provider: Charles Jaimes NP Collected : 02/09/2019 1600 Ordering Location: [place] [address] ICU Received: 02/10/2019 0805 Pathologist: Ayesha Vance MD Specimen: Peritoneal Fluid PERITONEAL FLUID (CYTOSPINS AND CELL BLOCK): - SCATTERED ATYPICAL CELLS, COMPATIBLE WITH METASTATIC ADENOCARCINOMA (SEE COMMENT) Signing Pathologist Direct Phone Line: [phone] signed by Ayesha Vance MD on 02/13/2019 at 11:09 AMThe patient has a recent sample of peritoneal fluid ([id number]) with metastatic adenocarcinoma. In the current sample , atypical cells with similar features are seen.Please see the prior sample (C19 -834) for additional evaluation and information. 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 02/03/19(see [id number] )PERITONEAL BSIWW154 mls yellow; 4 cytospins, cell blockCollected: [id number]: [id number], [facility] of [facility], [address] [place] [address], [facility], [facility] of [facility], [address] [place] [address], [facility]ntSan [facility], Department of Pathology, [address] [place] [address], b-TYPE NATRIURETIC FACTOR (BNP)2019-02-13 10:48:00 Test Item Value Reference Range Comments B-TYPE NATRIURETIC PEPTIDE (BEAKER) (test 107 pg/mL 0-100 lupe=971) COMPREHENSIVE METABOLIC [id number] 10:41:00 Test Item Value Reference Range Comments TOTAL PROTEIN (BEAKER) 6.8 gm/dL 6.0-8.3 (test sipw=688) ALBUMIN (BEAKER) (test 4.2 g/dL 3.5-5.0 zxxw=9412) ALKALINE PHOSPHATASE 35 U/L 40-150 (BEAKER) (test cyzz=817) BILIRUBIN TOTAL (BEAKER) 1.3 mg/dL 0.2-1.2 (test ugbt=327) SODIUM (BEAKER) (test 143 meq/L 136-145 iatt=274) POTASSIUM (BEAKER) (test 3.3 meq/L 3.5-5.1 elau=130) CHLORIDE (BEAKER) (test 111 meq/L 98-107 objb=834) CO2 (BEAKER) (test 20 meq/L 22-29 lnbl=182) BLOOD UREA NITROGEN 12 mg/dL 7-21 (BEAKER) (test teky=292) CREATININE (BEAKER) (test 2.68 mg/dL 0.57-1.25 pyzf=626) GLUCOSE RANDOM (BEAKER) 97 mg/dL 70-105 (test eiwu=116) CALCIUM (BEAKER) (test 8.6 mg/dL 8.4-10.2 fmbk=613) AST (SGOT) (BEAKER) (test 13 U/L 5-34 xfef=049) ALT (SGPT) (BEAKER) (test 6 U/L 6-55 pwbn=498) EGFR (BEAKER) (test 22 mL/min/1.73 sq m ESTIMATED GFR IS NOT nexd=4731) ACCURATE CREATININE CLEARANCE IN PREDICTING GLOMERULAR FILTRATION RATE. ESTIMATED GFR IS NOT APPLICABLE FOR DIALYSIS PATIENTS. BASIC METABOLIC [id number] 10:41:00 Test Item Value Reference Range Comments SODIUM (BEAKER) (test 143 meq/L 136-145 rang=999) POTASSIUM (BEAKER) (test 3.3 meq/L 3.5-5.1 zlot=507) CHLORIDE (BEAKER) (test 111 meq/L 98-107 dqld=009) CO2 (BEAKER) (test 20 meq/L 22-29 guxy=843) BLOOD UREA NITROGEN 12 mg/dL 7-21 (BEAKER) (test kyhk=040) CREATININE (BEAKER) (test 2.68 mg/dL 0.57-1.25 nkey=458) GLUCOSE RANDOM (BEAKER) 97 mg/dL 70-105 (test lbki=026) CALCIUM (BEAKER) (test 8.6 mg/dL 8.4-10.2 egpa=958) EGFR (BEAKER) (test 22 mL/min/1.73 sq m ESTIMATED GFR IS NOT irtw=9500) ACCURATE CREATININE CLEARANCE IN PREDICTING GLOMERULAR FILTRATION RATE. ESTIMATED GFR IS NOT APPLICABLE FOR DIALYSIS PATIENTS. CBC W/PLT COUNT & AUTO [id number] 10:37:00 Test Item Value Reference Range Comments WHITE BLOOD CELL COUNT (BEAKER) (test raae=730) 6.0 K/ L 3.5-10.5 RED BLOOD CELL COUNT (BEAKER) (test jayr=191) 2.33 M/ L 3.93-5.22 HEMOGLOBIN (BEAKER) (test ywus=720) 7.6 GM/DL 11.2-15.7 HEMATOCRIT (BEAKER) (test gqsf=286) 23.2 % 34.1-44.9 MEAN CORPUSCULAR VOLUME (BEAKER) (test mwjg=604) 99.6 fL 79.4-94.8 MEAN CORPUSCULAR HEMOGLOBIN (BEAKER) (test 32.6 pg 25.6-32.2 efkv=808) MEAN CORPUSCULAR HEMOGLOBIN CONC (BEAKER) (test 32.8 GM/DL 32.2-35.5 fudt=902) RED CELL DISTRIBUTION WIDTH (BEAKER) (test 13.6 % 11.7-14.4 isak=645) PLATELET COUNT (BEAKER) (test wrlv=960) 210 K/CU MM 150-450 MEAN PLATELET VOLUME (BEAKER) (test exet=110) 8.9 fL 9.4-12.3 NUCLEATED RED BLOOD CELLS (BEAKER) (test 0 /100 WBC 0-0 czhb=093) NEUTROPHILS RELATIVE PERCENT (BEAKER) (test 69 % litq=260) LYMPHOCYTES RELATIVE PERCENT (BEAKER) (test 23 % iuly=190) MONOCYTES RELATIVE PERCENT (BEAKER) (test 6 % adrs=433) EOSINOPHILS RELATIVE PERCENT (BEAKER) (test 1 % ymik=926) BASOPHILS RELATIVE PERCENT (BEAKER) (test 1 % njsx=936) NEUTROPHILS ABSOLUTE COUNT (BEAKER) (test 4.14 K/ L 1.56-6.13 prry=993) LYMPHOCYTES ABSOLUTE COUNT (BEAKER) (test 1.38 K/ L 1.18-3.74 vegx=977) MONOCYTES ABSOLUTE COUNT (BEAKER) (test 0.35 K/ L 0.24-0.36 yzsx=364) EOSINOPHILS ABSOLUTE COUNT (BEAKER) (test 0.06 K/ L 0.04-0.36 jppb=879) BASOPHILS ABSOLUTE COUNT (BEAKER) (test 0.05 K/ L 0.01-0.08 kibo=923) IMMATURE GRANULOCYTES-RELATIVE PERCENT (BEAKER) 0 % 0-1 (test nhot=4571) [id number] 10:34:00 Test Item Value Reference Range Comments PHOSPHORUS (BEAKER) (test wmdz=869) 1.8 mg/dL 2.3-4.7 [id number] 10:34:00 Test Item Value Reference Range Comments MAGNESIUM (BEAKER) (test kppc=854) 2.4 mg/dL 1.6-2.6 HEPATIC FUNCTION [id number] 10:34:00 Test Item Value Reference Range Comments TOTAL PROTEIN (BEAKER) (test iuav=233) 6.8 gm/dL 6.0-8.3 ALBUMIN (BEAKER) (test ionj=5264) 4.2 g/dL 3.5-5.0 BILIRUBIN TOTAL (BEAKER) (test goje=039) 1.3 mg/dL 0.2-1.2 BILIRUBIN DIRECT (BEAKER) (test aahz=885) 0.7 mg/dL 0.1-0.5 ALKALINE PHOSPHATASE (BEAKER) (test awbv=376) 35 U/L 40-150 AST (SGOT) (BEAKER) (test zdib=893) 13 U/L 5-34 ALT (SGPT) (BEAKER) (test szmg=929) 6 U/L 6-55 CREATINE KINASE (CK)2019-02-13 10:34:00 Test Item Value Reference Range Comments CREATINE KINASE TOTAL (BEAKER) (test zpcv=692) 37 U/L 29-200 ANTI-NUCLEAR ANTIBODY (CARROL)2019-02-13 10:25:00 Test Item Value Reference Range Comments ANTI-NUCLEAR ANTIBODY (CARROL) (BEAKER) (test Positive Negative ofvu=215) Test performed by IFA method.CARROL TITER AND [id number] 10:25:00 Test Item Value Reference Range Comments CARROL TITER (BEAKER) (test mqfm=4497) :160 CARROL PATTERN (BEAKER) (test mefq=2156) Homogeneous CALCIUM, [id number] 10:17:00 Test Item Value Reference Range Comments CALCIUM IONIZED (BEAKER) (test yysa=210) 1.03 mmol/L 1.12-1.27 PH, BLOOD (BEAKER) (test ileq=6066) 7.51 BODY FLUID CULTURE + GRAM [id number] 12:36:00 Test Item Value Reference Range Comments CULTURE (BEAKER) (test uoia=5872) No growth GRAM STAIN RESULT (BEAKER) (test <1+ White blood cells seen ihon=9002) GRAM STAIN RESULT (BEAKER) (test No organisms seen xbfa=01185) [id number] 09:07:00 Test Item Value Reference Range Comments PHOSPHORUS (BEAKER) (test kbxm=672) 2.2 mg/dL 2.3-4.7 [id number] 09:07:00 Test Item Value Reference Range Comments MAGNESIUM (BEAKER) (test fdyq=313) 2.4 mg/dL 1.6-2.6 COMPREHENSIVE METABOLIC [id number] 09:07:00 Test Item Value Reference Range Comments TOTAL PROTEIN (BEAKER) 6.2 gm/dL 6.0-8.3 (test cuhe=758) ALBUMIN (BEAKER) (test 3.7 g/dL 3.5-5.0 bbxf=4901) ALKALINE PHOSPHATASE 27 U/L 40-150 (BEAKER) (test vvkn=039) BILIRUBIN TOTAL (BEAKER) 0.8 mg/dL 0.2-1.2 (test icru=032) SODIUM (BEAKER) (test 142 meq/L 136-145 viuv=511) POTASSIUM (BEAKER) (test 3.4 meq/L 3.5-5.1 mlsr=243) CHLORIDE (BEAKER) (test 111 meq/L 98-107 iabz=967) CO2 (BEAKER) (test 20 meq/L 22-29 zbzl=104) BLOOD UREA NITROGEN 10 mg/dL 7-21 (BEAKER) (test gzpu=075) CREATININE (BEAKER) (test 2.89 mg/dL 0.57-1.25 rhkt=112) GLUCOSE RANDOM (BEAKER) 98 mg/dL 70-105 (test gcxi=389) CALCIUM (BEAKER) (test 8.5 mg/dL 8.4-10.2 vaxt=611) AST (SGOT) (BEAKER) (test 14 U/L 5-34 ydzt=706) ALT (SGPT) (BEAKER) (test 6 U/L 6-55 geeg=156) EGFR (BEAKER) (test 20 mL/min/1.73 sq m ESTIMATED GFR IS NOT zbuz=2506) ACCURATE CREATININE CLEARANCE IN PREDICTING GLOMERULAR FILTRATION RATE. ESTIMATED GFR IS NOT APPLICABLE FOR DIALYSIS PATIENTS. CALCIUM, [id number] 07:28:00 Test Item Value Reference Range Comments CALCIUM IONIZED (BEAKER) (test qyoy=869) 1.02 mmol/L 1.12-1.27 PH, BLOOD (BEAKER) (test gjud=2898) 7.46 CBC W/PLT COUNT & AUTO [id number] 06:55:00 Test Item Value Reference Range Comments WHITE BLOOD CELL COUNT (BEAKER) (test xrkg=380) 5.8 K/ L 3.5-10.5 RED BLOOD CELL COUNT (BEAKER) (test tbuv=513) 2.33 M/ L 3.93-5.22 HEMOGLOBIN (BEAKER) (test mrdu=999) 7.5 GM/DL 11.2-15.7 HEMATOCRIT (BEAKER) (test znvv=739) 23.5 % 34.1-44.9 MEAN CORPUSCULAR VOLUME (BEAKER) (test vmnt=602) 100.9 fL 79.4-94.8 MEAN CORPUSCULAR HEMOGLOBIN (BEAKER) (test 32.2 pg 25.6-32.2 vqsr=279) MEAN CORPUSCULAR HEMOGLOBIN CONC (BEAKER) (test 31.9 GM/DL 32.2-35.5 nnpc=357) RED CELL DISTRIBUTION WIDTH (BEAKER) (test 13.7 % 11.7-14.4 vjst=870) PLATELET COUNT (BEAKER) (test edva=811) 183 K/CU MM 150-450 MEAN PLATELET VOLUME (BEAKER) (test yzok=733) 8.3 fL 9.4-12.3 NUCLEATED RED BLOOD CELLS (BEAKER) (test 0 /100 WBC 0-0 dvax=208) NEUTROPHILS RELATIVE PERCENT (BEAKER) (test 71 % fjde=511) LYMPHOCYTES RELATIVE PERCENT (BEAKER) (test 21 % tqoy=890) MONOCYTES RELATIVE PERCENT (BEAKER) (test 6 % pxqb=516) EOSINOPHILS RELATIVE PERCENT (BEAKER) (test 2 % aevb=368) BASOPHILS RELATIVE PERCENT (BEAKER) (test 1 % htct=833) NEUTROPHILS ABSOLUTE COUNT (BEAKER) (test 4.13 K/ L 1.56-6.13 zjod=785) LYMPHOCYTES ABSOLUTE COUNT (BEAKER) (test 1.20 K/ L 1.18-3.74 bovt=518) MONOCYTES ABSOLUTE COUNT (BEAKER) (test 0.34 K/ L 0.24-0.36 hmzk=892) EOSINOPHILS ABSOLUTE COUNT (BEAKER) (test 0.09 K/ L 0.04-0.36 mvxw=123) BASOPHILS ABSOLUTE COUNT (BEAKER) (test 0.05 K/ L 0.01-0.08 roeo=542) IMMATURE GRANULOCYTES-RELATIVE PERCENT (BEAKER) 0 % 0-1 (test nlpc=7062) B-TYPE NATRIURETIC FACTOR (BNP)2019-02-11 17:28:00 Test Item Value Reference Range Comments B-TYPE NATRIURETIC PEPTIDE (BEAKER) (test bkqs=337) 61 pg/mL 0-100 CBC W/PLT COUNT & AUTO [id number] 17:10:00 Test Item Value Reference Range Comments WHITE BLOOD CELL COUNT (BEAKER) (test vlpk=112) 5.8 K/ L 3.5-10.5 RED BLOOD CELL COUNT (BEAKER) (test zfzk=780) 2.27 M/ L 3.93-5.22 HEMOGLOBIN (BEAKER) (test spfz=074) 7.3 GM/DL 11.2-15.7 HEMATOCRIT (BEAKER) (test qklg=392) 23.4 % 34.1-44.9 MEAN CORPUSCULAR VOLUME (BEAKER) (test vacb=099) 103.1 fL 79.4-94.8 MEAN CORPUSCULAR HEMOGLOBIN (BEAKER) (test 32.2 pg 25.6-32.2 dryx=251) MEAN CORPUSCULAR HEMOGLOBIN CONC (BEAKER) (test 31.2 GM/DL 32.2-35.5 oiyb=793) RED CELL DISTRIBUTION WIDTH (BEAKER) (test 14.0 % 11.7-14.4 suri=346) PLATELET COUNT (BEAKER) (test vuhu=979) 204 K/CU MM 150-450 MEAN PLATELET VOLUME (BEAKER) (test hyoy=866) 9.8 fL 9.4-12.3 NUCLEATED RED BLOOD CELLS (BEAKER) (test 0 /100 WBC 0-0 dglh=477) NEUTROPHILS RELATIVE PERCENT (BEAKER) (test 69 % hfth=666) LYMPHOCYTES RELATIVE PERCENT (BEAKER) (test 21 % jzwt=058) MONOCYTES RELATIVE PERCENT (BEAKER) (test 6 % oyfy=570) EOSINOPHILS RELATIVE PERCENT (BEAKER) (test 2 % icaw=217) BASOPHILS RELATIVE PERCENT (BEAKER) (test 1 % dyax=006) NEUTROPHILS ABSOLUTE COUNT (BEAKER) (test 4.04 K/ L 1.56-6.13 yrib=371) LYMPHOCYTES ABSOLUTE COUNT (BEAKER) (test 1.24 K/ L 1.18-3.74 dngu=673) MONOCYTES ABSOLUTE COUNT (BEAKER) (test 0.36 K/ L 0.24-0.36 kntv=337) EOSINOPHILS ABSOLUTE COUNT (BEAKER) (test 0.11 K/ L 0.04-0.36 wtti=859) BASOPHILS ABSOLUTE COUNT (BEAKER) (test 0.05 K/ L 0.01-0.08 lxll=056) IMMATURE GRANULOCYTES-RELATIVE PERCENT (BEAKER) 1 % 0-1 (test zhzx=9990) CT, [id number] 16:19:00FINAL REPORT TECHNIQUE: CT of the abdomen [...] Verified Date/Time: 02/11/2019 16: 19:52 Reading Location: [facility] B1 C013Y CT Body Reading Room [facility] [id number] 05:02:00 Test Item Value Reference Range Comments SODIUM (BEAKER) (test 142 meq/L 136-145 qvsb=332) POTASSIUM (BEAKER) (test 3.7 meq/L 3.5-5.1 dnmq=421) CHLORIDE (BEAKER) (test 113 meq/L 98-107 kndj=902) CO2 (BEAKER) (test 18 meq/L 22-29 tayw=118) BLOOD UREA NITROGEN 13 mg/dL 7-21 (BEAKER) (test mmjy=421) CREATININE (BEAKER) (test 2.15 mg/dL 0.57-1.25 lpfe=381) GLUCOSE RANDOM (BEAKER) 115 mg/dL 70-105 (test wnog=892) CALCIUM (BEAKER) (test 8.1 mg/dL 8.4-10.2 njef=755) EGFR (BEAKER) (test 28 mL/min/1.73 sq m ESTIMATED GFR IS NOT pbkq=2859) ACCURATE CREATININE CLEARANCE IN PREDICTING GLOMERULAR FILTRATION RATE. ESTIMATED GFR IS NOT APPLICABLE FOR DIALYSIS PATIENTS. HEPATIC FUNCTION [id number] 04:31:00 Test Item Value Reference Range Comments TOTAL PROTEIN (BEAKER) (test gksi=478) 5.9 gm/dL 6.0-8.3 ALBUMIN (BEAKER) (test tfha=2849) 3.0 g/dL 3.5-5.0 BILIRUBIN TOTAL (BEAKER) (test ipqk=257) 0.7 mg/dL 0.2-1.2 BILIRUBIN DIRECT (BEAKER) (test obzw=122) 0.4 mg/dL 0.1-0.5 ALKALINE PHOSPHATASE (BEAKER) (test ggcr=016) 34 U/L 40-150 AST (SGOT) (BEAKER) (test lhlw=206) 17 U/L 5-34 ALT (SGPT) (BEAKER) (test plnf=597) 9 U/L 6-55 [id number] 04:30:00 Test Item Value Reference Range Comments PHOSPHORUS (BEAKER) (test euvi=564) 2.5 mg/dL 2.3-4.7 [id number] 04:30:00 Test Item Value Reference Range Comments MAGNESIUM (BEAKER) (test rjzh=318) 1.5 mg/dL 1.6-2.6 CBC W/PLT COUNT & AUTO [id number] 04:04:00 Test Item Value Reference Range Comments WHITE BLOOD CELL COUNT (BEAKER) (test asgf=406) 6.0 K/ L 3.5-10.5 RED BLOOD CELL COUNT (BEAKER) (test kwkw=424) 2.64 M/ L 3.93-5.22 HEMOGLOBIN (BEAKER) (test hwac=677) 8.3 GM/DL 11.2-15.7 HEMATOCRIT (BEAKER) (test plup=796) 27.7 % 34.1-44.9 MEAN CORPUSCULAR VOLUME (BEAKER) (test tzrs=729) 104.9 fL 79.4-94.8 MEAN CORPUSCULAR HEMOGLOBIN (BEAKER) (test 31.4 pg 25.6-32.2 bcwi=265) MEAN CORPUSCULAR HEMOGLOBIN CONC (BEAKER) (test 30.0 GM/DL 32.2-35.5 omif=685) RED CELL DISTRIBUTION WIDTH (BEAKER) (test 14.1 % 11.7-14.4 qrqz=499) PLATELET COUNT (BEAKER) (test axcg=198) 198 K/CU MM 150-450 MEAN PLATELET VOLUME (BEAKER) (test xqkx=793) 8.4 fL 9.4-12.3 NUCLEATED RED BLOOD CELLS (BEAKER) (test 0 /100 WBC 0-0 mhgu=259) NEUTROPHILS RELATIVE PERCENT (BEAKER) (test 66 % qdyg=662) LYMPHOCYTES RELATIVE PERCENT (BEAKER) (test 25 % nymh=603) MONOCYTES RELATIVE PERCENT (BEAKER) (test 6 % nnto=548) EOSINOPHILS RELATIVE PERCENT (BEAKER) (test 2 % uahf=263) BASOPHILS RELATIVE PERCENT (BEAKER) (test 1 % fkrm=175) NEUTROPHILS ABSOLUTE COUNT (BEAKER) (test 3.90 K/ L 1.56-6.13 zutg=690) LYMPHOCYTES ABSOLUTE COUNT (BEAKER) (test 1.50 K/ L 1.18-3.74 zomd=493) MONOCYTES ABSOLUTE COUNT (BEAKER) (test 0.37 K/ L 0.24-0.36 cmjv=724) EOSINOPHILS ABSOLUTE COUNT (BEAKER) (test 0.11 K/ L 0.04-0.36 lsll=801) BASOPHILS ABSOLUTE COUNT (BEAKER) (test 0.05 K/ L 0.01-0.08 sodf=904) IMMATURE GRANULOCYTES-RELATIVE PERCENT (BEAKER) 1 % 0-1 (test bwdk=1321) URINALYSIS W/ REFLEX URINE [id number] 21:08:00 Test Item Value Reference Range Comments COLOR (BEAKER) (test oher=987) Yellow CLARITY (BEAKER) (test avvv=432) Hazy SPECIFIC GRAVITY UA (BEAKER) (test lpch=469) 1.015 1.001-1.035 PH UA (BEAKER) (test otiq=342) 5.5 5.0-8.0 PROTEIN UA (BEAKER) (test mqty=864) 20 mg/dL Negative GLUCOSE UA (BEAKER) (test qpqm=389) Negative Negative KETONES UA (BEAKER) (test avzq=447) Trace Negative BILIRUBIN UA (BEAKER) (test ahae=083) Negative Negative BLOOD UA (BEAKER) (test bbqd=856) Negative Negative NITRITE UA (BEAKER) (test pyca=067) Negative Negative LEUKOCYTE ESTERASE UA (BEAKER) (test qtle=867) Large Negative UROBILINOGEN UA (BEAKER) (test xnlz=206) 0.2 mg/dL 0.2-1.0 RBC UA (BEAKER) (test bimh=195) 1 /HPF WBC UA (BEAKER) (test toot=803) 10 /HPF SQUAMOUS EPITHELIAL (BEAKER) (test kshq=069) 3 /HPF HYALINE CASTS (BEAKER) (test nfrd=477) 2 /LPF CRYSTALS, URINE (BEAKER) (test scnp=8758) Rare YEAST (BEAKER) (test fbnu=7733) Occasional SOURCE(BEAKER) (test bidj=6441) HEPATITIS B SURFACE [id number] 20:13:00 Test Item Value Reference Range Comments HEPATITIS B SURFACE ANTIBODY (BEAKER) (test < mIU/mL <8.0 wlfg=022) HEPATITIS A ANTIBODY, [id number] 20:13:00 Test Item Value Reference Range Comments HEPATITIS A IGG ANTIBODY (BEAKER) (test pwoo=8472) Reactive Nonreactive HEPATITIS B SURFACE [id number] 20:11:00 Test Item Value Reference Range Comments HEPATITIS B SURFACE ANTIGEN (2) (BEAKER) (test Nonreactive Nonreactive xccx=3048) HEPATITIS C [id number] 20:11:00 Test Item Value Reference Range Comments HEPATITIS C ANTIBODY (BEAKER) (test gpvg=441) Nonreactive Nonreactive U/S, ABDOMINAL, WITH [id number] 20:08:00Reason for exam:->evaluation for liver disease, other [...] MDReport Verified Date/Time: 02/09/2019 20:08:48 Reading Location: [facility] C013W Consult Reading Room IMMUNOGLOBULIN G (IGG)2019-02-09 19:45:00 Test Item Value Reference Range Comments IMMUNOGLOBULIN G (IGG) (BEAKER) (test mgjy=514) 926 mg/dL 540-1,822 [id number] 19:13:00 Test Item Value Reference Range Comments FERRITIN (BEAKER) (test fhmg=071) 1896 ng/mL 5-275 BODY FLUID CELL COUNT WITH [id number] 19:01:00 Test Item Value Reference Range Comments APPEARANCE FLUID (BEAKER) (test xaza=009) Slightly Hazy Clear COLOR FLUID (BEAKER) (test nufv=531) Yellow Colorless, Straw RBC FLUID (BEAKER) (test hvia=269) 200 /cu mm <=1 ADJUSTED WBC FLUID (BEAKER) (test raaj=2372) 88 /cu mm <=5 LINING CELLS (BEAKER) (test tldn=0657) 2 /cu mm <=1 NEUTROPHILS FLUID (BEAKER) (test sjlu=9513) 1 % LYMPHS FLUID (BEAKER) (test rwob=714) 57 % MONO/MACROPHAGE FLUID (BEAKER) (test 40 % ztpk=002) EOSINOPHILS FLUID (BEAKER) (test ntve=614) 2 % BASO FLUID (BEAKER) (test iyiu=368) 0 % CONTAINER BODY FLUID (BEAKER) (test EDTA Tube tnlt=5820) IRON, TIBC, % SAT. (WITHOUT FERRITIN)2019-02-09 18:53:00 Test Item Value Reference Range Comments IRON (BEAKER) (test vgbk=766) 23.0 ug/dL 40.0-160.0 TOTAL IRON BINDING CAPACITY (BEAKER) (test 94 ug/dL 250-450 hnhy=586) IRON % SATURATION (2) (BEAKER) (test cjyl=8720) 24 % 20-55 GAMMA GLUTAMYL TRANSFERASE (GGT)2019-02-09 18:51:00 Test Item Value Reference Range Comments GAMMA GLUTAMYL TRANSFERASE 21 U/L 9-64 Specimen slightly hemolyzed (BEAKER) (test lgfw=402) ALBUMIN, BODY [id number] 18:07:00 Test Item Value Reference Range Comments ALBUMIN FLUID (BEAKER) (test mjab=950) 2.3 gm/dL Reference Range: No Normals Assay performance has not been validated for this type of specimen.LACTATE DEHYDROGENASE (LDH), BODY [id number] 18:07:00 Test Item Value Reference Range Comments LACTATE DEHYDROGENASE FLUID (BEAKER) (test guzx=443) 288 U/L Absence of reference range indicates that normals have not been defined.Assay performance has not been validated for this type of specimen.RAD, CHEST, 1 VIEW , NON [id number] 17:55:00Reason for exam:->dyspneaShould this be performed at [...] MDReport Verified Date/Time: 02/09/2019 17:55:29 Reading Location: [facility]W Consult Reading Room SODIUM, RANDOM [id number] 16:13:00 Test Item Value Reference Range Comments SODIUM URINE (BEAKER) (test atlj=666) < meq/L Reference Range: No NormalsCREATININE, RANDOM [id number] 16:11:00 Test Item Value Reference Range Comments CREATININE URINE (BEAKER) (test vfst=886) 177.2 mg/dL Reference Range: No NormalsUREA NITROGEN, RANDOM [id number] 16:11:00 Test Item Value Reference Range Comments UREA NITROGEN URINE (BEAKER) (test mtlc=942) 557 mg/dL Reference Range: No [id number] 15:34:00 Test Item Value Reference Range Comments PROCALCITONIN (BEAKER) (test lgmk=3773) 0.12 ng/mL <0.05 SEPSIS RISK (ng/mL)Low: 0.05-0.50Intermediate: 0.51-2.00High: & gt;=2.01B-TYPE NATRIURETIC FACTOR (BNP)2019-02-09 15:28:00 Test Item Value Reference Range Comments B-TYPE NATRIURETIC PEPTIDE (BEAKER) (test prtu=876) 17 pg/mL 0-100 TROPONIN [id number] 15:27:00 Test Item Value Reference Range Comments TROPONIN I (BEAKER) (test sjgz=499) < ng/mL 0.00-0.03 Troponin I (TnI) levels [...] acute neurological disease, and persistent tachyarrhythmia.HEPATIC FUNCTION [id number] 15:21: 00 Test Item Value Reference Range Comments TOTAL PROTEIN (BEAKER) (test fizs=973) 6.3 gm/dL 6.0-8.3 ALBUMIN (BEAKER) (test vdsg=7991) 2.9 g/dL 3.5-5.0 BILIRUBIN TOTAL (BEAKER) (test meov=579) 0.9 mg/dL 0.2-1.2 BILIRUBIN DIRECT (BEAKER) (test audh=972) 0.5 mg/dL 0.1-0.5 ALKALINE PHOSPHATASE (BEAKER) (test jccp=672) 40 U/L 40-150 AST (SGOT) (BEAKER) (test ibqf=871) 19 U/L 5-34 ALT (SGPT) (BEAKER) (test weod=661) 12 U/L 6-55 BASIC METABOLIC [id number] 15:21:00 Test Item Value Reference Range Comments SODIUM (BEAKER) (test 143 meq/L 136-145 vkkf=531) POTASSIUM (BEAKER) (test 3.3 meq/L 3.5-5.1 nfqp=893) CHLORIDE (BEAKER) (test 112 meq/L 98-107 edge=296) CO2 (BEAKER) (test 17 meq/L 22-29 sxfl=539) BLOOD UREA NITROGEN 16 mg/dL 7-21 (BEAKER) (test lyqn=189) CREATININE (BEAKER) (test 1.92 mg/dL 0.57-1.25 alvm=849) GLUCOSE RANDOM (BEAKER) 111 mg/dL 70-105 (test ndzh=183) CALCIUM (BEAKER) (test 8.6 mg/dL 8.4-10.2 yvbh=457) EGFR (BEAKER) (test 32 mL/min/1.73 sq m ESTIMATED GFR IS NOT hpjh=8319) ACCURATE CREATININE CLEARANCE IN PREDICTING GLOMERULAR FILTRATION RATE. ESTIMATED GFR IS NOT APPLICABLE FOR DIALYSIS PATIENTS. PROTHROMBIN TIME/[id number] 15:17:00 Test Item Value Reference Range Comments PROTIME (BEAKER) (test rsym=671) 16.0 seconds 11.7-14.7 INR (BEAKER) (test sgja=475) 1.3 <=5.9 RECOMMENDED COUMADIN/WARFARIN INR THERAPY RANGESSTANDARD DOSE: 2.0 - 3.0 Includes: PROPHYLAXIS forvenous thrombosis, systemic embolization; TREATMENT for venous thrombosis and/or pulmonary embolus.HIGH RISK: Target INR is 2.5-3.5 for patients with mechanical heart valves.[id number] 15:17:00 Test Item Value Reference Range Comments FIBRINOGEN LEVEL (BEAKER) (test eglg=083) 718 mg/dl 225-434 CBC W/PLT COUNT & AUTO [id number] 15:15:00 Test Item Value Reference Range Comments WHITE BLOOD CELL COUNT (BEAKER) (test egkw=489) 7.0 K/ L 3.5-10.5 RED BLOOD CELL COUNT (BEAKER) (test nvxf=998) 2.80 M/ L 3.93-5.22 HEMOGLOBIN (BEAKER) (test kqnu=836) 9.1 GM/DL 11.2-15.7 HEMATOCRIT (BEAKER) (test ixrl=603) 28.5 % 34.1-44.9 MEAN CORPUSCULAR VOLUME (BEAKER) (test jdsn=434) 101.8 fL 79.4-94.8 MEAN CORPUSCULAR HEMOGLOBIN (BEAKER) (test 32.5 pg 25.6-32.2 yjke=824) MEAN CORPUSCULAR HEMOGLOBIN CONC (BEAKER) (test 31.9 GM/DL 32.2-35.5 pjgi=581) RED CELL DISTRIBUTION WIDTH (BEAKER) (test 13.8 % 11.7-14.4 kmwj=668) PLATELET COUNT (BEAKER) (test vbth=925) 212 K/CU MM 150-450 MEAN PLATELET VOLUME (BEAKER) (test idde=224) 9.2 fL 9.4-12.3 NUCLEATED RED BLOOD CELLS (BEAKER) (test 0 /100 WBC 0-0 huig=484) NEUTROPHILS RELATIVE PERCENT (BEAKER) (test 70 % lqbj=328) LYMPHOCYTES RELATIVE PERCENT (BEAKER) (test 22 % yyob=534) MONOCYTES RELATIVE PERCENT (BEAKER) (test 5 % udbd=925) EOSINOPHILS RELATIVE PERCENT (BEAKER) (test 1 % cxap=761) BASOPHILS RELATIVE PERCENT (BEAKER) (test 1 % erlt=295) NEUTROPHILS ABSOLUTE COUNT (BEAKER) (test 4.92 K/ L 1.56-6.13 axnx=043) LYMPHOCYTES ABSOLUTE COUNT (BEAKER) (test 1.58 K/ L 1.18-3.74 wxfc=869) MONOCYTES ABSOLUTE COUNT (BEAKER) (test 0.35 K/ L 0.24-0.36 ejzo=280) EOSINOPHILS ABSOLUTE COUNT (BEAKER) (test 0.09 K/ L 0.04-0.36 lihx=336) BASOPHILS ABSOLUTE COUNT (BEAKER) (test 0.07 K/ L 0.01-0.08 oggm=919) IMMATURE GRANULOCYTES-RELATIVE PERCENT (BEAKER) 0 % 0-1 (test zdqp=8209) LACTIC ACID, [id number] 15:15:00 Test Item Value Reference Range Comments LACTATE BLOOD VENOUS (2) 1.3 mmol/L 0.5-2.2 Specimen moderately hemolyzed (BEAKER) (test bvsg=7185) [id number] 15:14:00 Test Item Value Reference Range Comments AMMONIA (BEAKER) (test 17 mol/L 18-72 Specimen moderately hemolyzed gkmf=335) [id number] 14:17:00Medical Cytology Report Case: [id number] Authorizing Provider: Mary Elizondo MD Collected: 02/01/2019 1654 Ordering Location: [address] Received: 02/02/2019 0857 Service Pathologist: Cherri [...] - HER 2 OVER-EXPRESSION: NEGATIVE (SCORE: 0)PB: 69870 X3, 01563 CAP REGULATION: FIXATION TIME FOR BIOMARKERS ASSESSMENTCollection [...] and Ki67 were assessed using clones SP1 ([place] ), 1294 (DAKO), 4B5 (FDA Approved [place] [employer]) and 30-9 ([place]) respectively. Control Slides Examined: In-house known ER, DE, HER2 and Ki67 positive controls were evaluated along with test tissue. These control slides run alongside of the patients sample show appropriate staining. Internal controls when available are evaluated.Interpretive Criteria: The staining results according to the ASCO/CAP guidelines for HER2 (Jaylen AC et al. Arch Pathol Lab Med December 29) and ER/DE (Yvette HERNÁNDEZ et al. Arch Pathol Lab Med 2010; 134:e48-e72) by ASCO/CAP guidelines.ER and DE "positive" requires greater or equal to 1% [...] equal to 10% of tumor cells. The ER/DE Proportion Score indicates the proportion of positive [...] 2002). Immunohistochemistry technical testing was performed at [facility], Pathology Laboratory where it was developed [...] (SEE COMMENT) Signing Pathologist Direct Phone Line: [phone] signed by Cherri Covington MD on 02/07/2019 at 4:06 PMThe peritoneal fluid shows few atypical cells,scattered mostly singly. These cells are positive for MOC-31, Irwin -EP4 and MAYUR-3. GCDFP is negative.Calretinin and WT-1 highlight mesothelial cells. The immunoprofile is compatible with patient's history of breast primaryAn addendm report will follow with the results of the biomarkers.26103, 28329; 93832; 60231 x 5Ascites, history of of breast cancer (dx 2010 s/p chemoXRT, lumpectomy)PERITONEAL [id number] mls yellow; 4 cytospins, cell blockCollected: [id number]: [id number] interpretation of this case included the use of immunohistochemistry or special stains. Calretinin; WT- 1; MAYUR-3; GCDFP; MOC-31 AND IRWIN-XX2Enyjcaiduwyprdzyqqph technical testing was performed at [facility], Pathology Laboratory where it [...] qualified to perform high complexity clinical laboratory testing.[facility], Department of Pathology, [address] [place] [address], [facility], [facility] of [facility], [address] [place] [address], [facility], [address] [place] [address], Tel STOOL CULTURE + SHIGA [id number] 00:23:00 Test Item Value Reference Range Comments CULTURE (BEAKER) (test No Salmonella, Shigella or hwqs=0379) Campylobacter isolated SHIGA TOXIN [id number] 10:46:00 Test Item Value Reference Range Comments SHIGA TOXIN 1 (BEAKER) (test wons=6584) Not detected Not detected SHIGA TOXIN 2 (BEAKER) (test rvjj=7644) Not detected Not detected Resubmit new specimen if clinically indicated.BODY FLUID CULTURE + GRAM [id number] 08:40:00 Test Item Value Reference Range Comments CULTURE (BEAKER) (test ezcy=8313) No growth GRAM STAIN RESULT (BEAKER) (test 1+ WBCs hknb=3793) GRAM STAIN RESULT (BEAKER) (test No organisms seen gqwa=45003) STOOL PATH [id number] 11:26:00 Test Item Value Reference Range Comments PATHOGEN EXAM CHARGED (BEAKER) (test ozgx=1598) Done C. DIFFICILE GDH [id number] 17:05:00 Test Item Value Reference Range Comments CDT TOXIN (test Negative Negative qjkd=[id number]) CDT GDH ANTIGEN (test Negative Negative No indication of Clostridium xsjd=[id number]) difficile infection and no colonization. Discontinue enteric isolation and therapy. Testing performed by [facility] Rapid Cassette Assay. For GDH, published sensitivity of the assay is 98.7% compared to cytotoxicity testing. For Toxin AB, published sensitivity is 87.8% and specificity 99.4% compared to cytotoxicity testing.Verification of kit performance was done by the [facility] Microbiology Lab prior to clinical use.[id number] 13:10:00 Test Item Value Reference Range Comments MAGNESIUM (BEAKER) (test etei=945) 1.9 mg/dL 1.6-2.6 BASIC METABOLIC [id number] 13:10:00 Test Item Value Reference Range Comments SODIUM (BEAKER) (test 139 meq/L 136-145 obvm=603) POTASSIUM (BEAKER) (test 4.0 meq/L 3.5-5.1 ctje=144) CHLORIDE (BEAKER) (test 110 meq/L 98-107 hvfd=912) CO2 (BEAKER) (test 21 meq/L 22-29 luus=260) BLOOD UREA NITROGEN 21 mg/dL 7-21 (BEAKER) (test qatn=960) CREATININE (BEAKER) (test 1.34 mg/dL 0.57-1.25 jgai=274) GLUCOSE RANDOM (BEAKER) 112 mg/dL 70-105 (test tqaf=696) CALCIUM (BEAKER) (test 8.5 mg/dL 8.4-10.2 razk=525) EGFR (BEAKER) (test 49 mL/min/1.73 sq m ESTIMATED GFR IS NOT ycwd=4392) ACCURATE CREATININE CLEARANCE IN PREDICTING GLOMERULAR FILTRATION RATE. ESTIMATED GFR IS NOT APPLICABLE FOR DIALYSIS PATIENTS. HEPATIC FUNCTION [id number] 13:10:00 Test Item Value Reference Range Comments TOTAL PROTEIN (BEAKER) (test dgid=762) 6.2 gm/dL 6.0-8.3 ALBUMIN (BEAKER) (test riin=8509) 2.7 g/dL 3.5-5.0 BILIRUBIN TOTAL (BEAKER) (test ubej=518) 0.5 mg/dL 0.2-1.2 BILIRUBIN DIRECT (BEAKER) (test ftxa=036) 0.2 mg/dL 0.1-0.5 ALKALINE PHOSPHATASE (BEAKER) (test thlb=163) 36 U/L 40-150 AST (SGOT) (BEAKER) (test vjfc=439) 16 U/L 5-34 ALT (SGPT) (BEAKER) (test tnoz=507) 10 U/L 6-55 CBC W/PLT COUNT & AUTO [id number] 12:41:00 Test Item Value Reference Range Comments WHITE BLOOD CELL COUNT (BEAKER) (test jasq=901) 6.6 K/ L 3.5-10.5 RED BLOOD CELL COUNT (BEAKER) (test dabi=775) 2.65 M/ L 3.93-5.22 HEMOGLOBIN (BEAKER) (test dysz=816) 8.6 GM/DL 11.2-15.7 HEMATOCRIT (BEAKER) (test sgya=645) 28.1 % 34.1-44.9 MEAN CORPUSCULAR VOLUME (BEAKER) (test mbgc=056) 106.0 fL 79.4-94.8 MEAN CORPUSCULAR HEMOGLOBIN (BEAKER) (test 32.5 pg 25.6-32.2 wbnp=931) MEAN CORPUSCULAR HEMOGLOBIN CONC (BEAKER) (test 30.6 GM/DL 32.2-35.5 rgqd=126) RED CELL DISTRIBUTION WIDTH (BEAKER) (test 13.6 % 11.7-14.4 fust=512) PLATELET COUNT (BEAKER) (test keqp=273) 285 K/CU MM 150-450 MEAN PLATELET VOLUME (BEAKER) (test jecm=157) 8.3 fL 9.4-12.3 NUCLEATED RED BLOOD CELLS (BEAKER) (test 0 /100 WBC 0-0 jfxf=370) NEUTROPHILS RELATIVE PERCENT (BEAKER) (test 71 % vrxl=576) LYMPHOCYTES RELATIVE PERCENT (BEAKER) (test 22 % iasi=179) MONOCYTES RELATIVE PERCENT (BEAKER) (test 6 % qyod=379) EOSINOPHILS RELATIVE PERCENT (BEAKER) (test 0 % rbid=051) BASOPHILS RELATIVE PERCENT (BEAKER) (test 1 % fygq=856) NEUTROPHILS ABSOLUTE COUNT (BEAKER) (test 4.68 K/ L 1.56-6.13 shaq=342) LYMPHOCYTES ABSOLUTE COUNT (BEAKER) (test 1.43 K/ L 1.18-3.74 fwqg=978) MONOCYTES ABSOLUTE COUNT (BEAKER) (test 0.39 K/ L 0.24-0.36 qlaz=103) EOSINOPHILS ABSOLUTE COUNT (BEAKER) (test 0.02 K/ L 0.04-0.36 hcjd=551) BASOPHILS ABSOLUTE COUNT (BEAKER) (test 0.03 K/ L 0.01-0.08 lipd=226) IMMATURE GRANULOCYTES-RELATIVE PERCENT (BEAKER) 1 % 0-1 (test xuwt=3142) U/S, ABDOMINAL, WITH [id number] 10:51:00Reason for exam:->ascites, evaluate for PVTFINAL REPORT [...] Vahid Espinozaeport Verified Date/Time: 10:51:26 Reading Location: [address] Ultrasound Reading Room BODY FLUID CELL COUNT WITH [id number] 19:54:00 Test Item Value Reference Range Comments APPEARANCE FLUID (BEAKER) (test djum=911) Slightly Hazy Clear COLOR FLUID (BEAKER) (test saol=433) Yellow Colorless, Straw RBC FLUID (BEAKER) (test kqqq=093) 262 /cu mm <=1 ADJUSTED WBC FLUID (BEAKER) (test nzfn=1334) 93 /cu mm <=5 LINING CELLS (BEAKER) (test bpbh=3742) 4 /cu mm <=1 NEUTROPHILS FLUID (BEAKER) (test lfpc=4914) 1 % LYMPHS FLUID (BEAKER) (test dunv=351) 14 % MONO/MACROPHAGE FLUID (BEAKER) (test 85 % rvmv=716) EOSINOPHILS FLUID (BEAKER) (test dmsn=356) 0 % BASO FLUID (BEAKER) (test cfst=943) 0 % CONTAINER BODY FLUID (BEAKER) (test EDTA Tube bzet=2866) ALBUMIN, BODY [id number] 18:05:00 Test Item Value Reference Range Comments ALBUMIN FLUID (BEAKER) (test jblg=869) 2.6 gm/dL Reference Range: No Normals Assay performance has not been validated for this type of specimen.PROTEIN, BODY [id number] 18:05:00 Test Item Value Reference Range Comments PROTEIN FLUID (BEAKER) (test rbhe=721) 4.6 g/dL Absence of reference range indicates that normals have not been defined.Assay performance has not been validated for this type of specimen.U/S, [id number] 17:07:00Reason for exam:->ascites of unclear etiology , [...] sterile technique, ultrasound guidance and a 5 Wolof coaxial needle, a single pass right lower [...] MDReport Verified Date/Time: 02/01/2019 17:07:23 Reading Location: [place] [id number] Ultrasound Reading Room [id number] 12:56:00 Test Item Value Reference Range Comments MAGNESIUM (BEAKER) (test uirq=528) 2.2 mg/dL 1.6-2.6 BASIC METABOLIC [id number] 12:56:00 Test Item Value Reference Range Comments SODIUM (BEAKER) (test 142 meq/L 136-145 cysw=485) POTASSIUM (BEAKER) (test 4.3 meq/L 3.5-5.1 whfj=781) CHLORIDE (BEAKER) (test 108 meq/L 98-107 nflb=021) CO2 (BEAKER) (test 24 meq/L 22-29 kymf=554) BLOOD UREA NITROGEN 22 mg/dL 7-21 (BEAKER) (test dskg=612) CREATININE (BEAKER) (test 1.72 mg/dL 0.57-1.25 oqar=403) GLUCOSE RANDOM (BEAKER) 139 mg/dL 70-105 (test xgtb=430) CALCIUM (BEAKER) (test 9.1 mg/dL 8.4-10.2 cnxk=499) EGFR (BEAKER) (test 36 mL/min/1.73 sq m ESTIMATED GFR IS NOT zwpj=4015) ACCURATE CREATININE CLEARANCE IN PREDICTING GLOMERULAR FILTRATION RATE. ESTIMATED GFR IS NOT APPLICABLE FOR DIALYSIS PATIENTS. HEPATIC FUNCTION [id number] 12:56:00 Test Item Value Reference Range Comments TOTAL PROTEIN (BEAKER) (test jkqs=651) 7.0 gm/dL 6.0-8.3 ALBUMIN (BEAKER) (test kbvt=0023) 3.1 g/dL 3.5-5.0 BILIRUBIN TOTAL (BEAKER) (test mhaq=676) 0.6 mg/dL 0.2-1.2 BILIRUBIN DIRECT (BEAKER) (test bxwl=735) 0.4 mg/dL 0.1-0.5 ALKALINE PHOSPHATASE (BEAKER) (test uluv=034) 42 U/L 40-150 AST (SGOT) (BEAKER) (test haop=475) 15 U/L 5-34 ALT (SGPT) (BEAKER) (test jafy=423) 10 U/L 6-55 PROTHROMBIN [id number] 12:51:00 Test Item Value Reference Range Comments PROTIME (BEAKER) (test pipp=249) 16.5 seconds 11.7-14.7 INR (BEAKER) (test usoz=700) 1.3 <=5.9 RECOMMENDED COUMADIN/WARFARIN INR THERAPY RANGESSTANDARD DOSE: 2.0 - 3.0 Includes: PROPHYLAXIS forvenous thrombosis, systemic embolization; TREATMENT for venous thrombosis and/or pulmonary embolus.HIGH RISK: Target INR is 2.5-3.5 for patients with mechanical heart valves.CBC (HEMOGRAM ONLY)2019-02-01 12:38:00 Test Item Value Reference Range Comments WHITE BLOOD CELL COUNT (BEAKER) (test jatb=165) 9.6 K/ L 3.5-10.5 RED BLOOD CELL COUNT (BEAKER) (test pbpe=087) 2.77 M/ L 3.93-5.22 HEMOGLOBIN (BEAKER) (test veyt=590) 9.1 GM/DL 11.2-15.7 HEMATOCRIT (BEAKER) (test chgu=491) 28.9 % 34.1-44.9 MEAN CORPUSCULAR VOLUME (BEAKER) (test ixzs=263) 104.3 fL 79.4-94.8 MEAN CORPUSCULAR HEMOGLOBIN (BEAKER) (test 32.9 pg 25.6-32.2 joij=027) MEAN CORPUSCULAR HEMOGLOBIN CONC (BEAKER) (test 31.5 GM/DL 32.2-35.5 douc=206) RED CELL DISTRIBUTION WIDTH (BEAKER) (test 13.7 % 11.7-14.4 epjb=079) PLATELET COUNT (BEAKER) (test ihcr=614) 318 K/CU MM 150-450 MEAN PLATELET VOLUME (BEAKER) (test nsjd=484) 8.3 fL 9.4-12.3 NUCLEATED RED BLOOD CELLS (BEAKER) (test 0 /100 WBC 0-0 ugsb=154)
[2019-11-27 08:27] VITALS: O2SAT 100
[2019-11-27 08:28] VITALS: BMI 31.0
--- NOTE | 2019-11-27 09:43 | RAD REPORT ---
EXAM DESCRIPTION: US - Paracentesis Proc Guidance - 11/27/2019 9:18 am CLINICAL HISTORY: ASCITES Ascites COMPARISON: Fluoroscopy <1 Hour dated 03/15/2019 FINDINGS: Informed consent was obtained and time-out was performed. Patient's abdomen was prepped and draped in the usual sterile fashion. 1% lidocaine was used for loca l anesthetic purposes. A small skin incision was made in the right lower quadrant. A paracentesis catheter was guided into t he peroneal cavity under sonographic guidance. A small amount of fluid was sent for requested lab studies. A large volume paracentesis was performed . The patient tolerated the procedure well. Patient was administered IV albumin per protocol following the procedure. IMPRESSION: Successful ultrasound-guided paracentesis.
[2019-11-27 12:02] VITALS: BP 104/61; TEMP 97.6
== END ==
LOC: DS 07:27
PROVIDERS: ATTEND Internal Medicine Hematology & Oncology
DX: R18.0 Malignant ascites (principal)
CPT/HCPCS: 96365; 49083; P9047

== ENCOUNTER 2020-01-01 06:47 | Day surgery (SDC) | payer OTHER ==
--- OUTSIDE RECORDS SUMMARY | 2020-01-01 06:51 | XMS REPORT ---
:1955 [facility] [place] [address] Care Team Providers Name Role Phone DANIELLE [...] Comments WHITE BLOOD CELL COUNT (BEAKER) (test wdza=041) 5.1 K/ L 3.5-10.5 RED BLOOD CELL COUNT (BEAKER) (test eppc=506) 2.77 M/ L 3.93-5.22 HEMOGLOBIN (BEAKER) (test bpwa=410) 8.4 GM/DL 11.2-15.7 HEMATOCRIT (BEAKER) (test xhlw=450) 26.7 % 34.1-44.9 MEAN CORPUSCULAR VOLUME (BEAKER) (test vvfx=789) 96.4 fL 79.4-94.8 MEAN CORPUSCULAR HEMOGLOBIN (BEAKER) (test yiln=400) 30.3 pg 25.6-32.2 MEAN CORPUSCULAR HEMOGLOBIN CONC (BEAKER) (test msxd=049) 31.5 GM/DL 32.2- 35.5 RED CELL DISTRIBUTION WIDTH (BEAKER) (test qptd=070) 15.5 % 11.7-14.4 PLATELET COUNT (BEAKER) (test groq=935) 179 K/CU MM 150-450 MEAN PLATELET VOLUME (BEAKER) (test dhbl=927) 10.2 fL 9.4-12.3 NUCLEATED RED BLOOD CELLS (BEAKER) (test gyqr=952) 0 /100 WBC 0-0 (CELLAVISION MANUAL DIFF)2019-02-20 12:08:00 Test Item Value Reference Range Comments NEUTROPHILS - REL (CELLAVISION)(BEAKER) (test 86 % kjxk=3359) LYMPHOCYTES - REL (CELLAVISION)(BEAKER) (test 7 % vbgp=0032) MONOCYTES - REL (CELLAVISION)(BEAKER) (test 1 % woel=0384) METAMYELOCYTES - REL (CELLAVISION)(BEAKER) (test 3 % 0-0 fomo=6473) BANDS - REL (CELLAVISION)(BEAKER) (test 3 % 0-10 tybl=8159) NEUTROPHILS - ABS (CELLAVISION)(BEAKER) (test 4.39 K/ul 1.56-6.13 mzhb=3593) LYMPHOCYTES - ABS (CELLAVISION)(BEAKER) (test 0.36 K/ul 1.18-3.74 zluj=7100) MONOCYTES - ABS (CELLAVISION)(BEAKER) (test 0.05 K/uL 0.24-0.36 oxra=8183) METAMYELOCYTES - ABS (CELLAVISION)(BEAKER) (test 0.15 K/uL 0.00-0.00 ycfs=6331) BANDS - ABS (CELLAVISION)(BEAKER) (test 0.15 K/uL 0.00-0.80 inpu=0424) TOTAL COUNTED (BEAKER) (test cnix=3884) 100 SMUDGE CELLS (BEAKER) (test uqey=0679) Present LARGE PLT(BEAKER) (test avak=2796) Present ANISOCYTOSIS (BEAKER) (test ibqs=397) 1+ few POIKILOCYTES (BEAKER) (test uytp=322) 1+ few SCHISTOCYTES (BEAKER) (test vzng=157) 1+ few ELLIPTOCYTES (BEAKER) (test hpjo=697) 2+ moderate VIDHI CELLS (BEAKER) (test duoj=570) 2+ moderate ARTIFACT (CELLAVISION)(BEAKER) (test iini=4438) Present PLATELET CONCENTRATION (CELLAVISION)(BEAKER) Adequate (test plqz=9051) Received comment: User comments: Slide comments: WBC: SEGMENTED WITH TOXIC GRANULATION PRESENTBASIC METABOLIC [id number] 07:54:00 Test Item Value Reference Range Comments SODIUM (BEAKER) (test 140 meq/L 136-145 rjcb=784) POTASSIUM (BEAKER) (test 3.4 meq/L 3.5-5.1 pfxt=777) CHLORIDE (BEAKER) (test 107 meq/L 98-107 frzk=586) CO2 (BEAKER) (test 26 meq/L 22-29 dixq=509) BLOOD UREA NITROGEN 14 mg/dL 7-21 (BEAKER) (test qehb=092) CREATININE (BEAKER) (test 1.71 mg/dL 0.57-1.25 sdvl=292) GLUCOSE RANDOM (BEAKER) 104 mg/dL 70-105 (test gece=959) CALCIUM (BEAKER) (test 7.8 mg/dL 8.4-10.2 dknw=336) EGFR (BEAKER) (test 37 mL/min/1.73 sq m ESTIMATED GFR IS NOT wmdq=3615) ACCURATE CREATININE CLEARANCE IN PREDICTING GLOMERULAR FILTRATION RATE. ESTIMATED GFR IS NOT APPLICABLE FOR DIALYSIS PATIENTS. [id number] 07:48:00 Test Item Value Reference Range Comments PHOSPHORUS (BEAKER) (test xqxm=835) 1.9 mg/dL 2.3-4.7 [id number] 07:48:00 Test Item Value Reference Range Comments MAGNESIUM (BEAKER) (test phth=685) 1.5 mg/dL 1.6-2.6 HEPATIC FUNCTION [id number] 07:48:00 Test Item Value Reference Range Comments TOTAL PROTEIN (BEAKER) (test ravw=348) 5.4 gm/dL 6.0-8.3 ALBUMIN (BEAKER) (test pztd=1119) 2.9 g/dL 3.5-5.0 BILIRUBIN TOTAL (BEAKER) (test jvgp=087) 1.0 mg/dL 0.2-1.2 BILIRUBIN DIRECT (BEAKER) (test obzn=087) 0.6 mg/dL 0.1-0.5 ALKALINE PHOSPHATASE (BEAKER) (test albz=302) 47 U/L 40-150 AST (SGOT) (BEAKER) (test timf=964) 44 U/L 5-34 ALT (SGPT) (BEAKER) (test xkfj=696) 22 U/L 6-55 CREATINE KINASE (CK)2019-02-20 07:48:00 Test Item Value Reference Range Comments CREATINE KINASE TOTAL (BEAKER) (test mcpw=438) 39 U/L 29-200 [id number] 07:48:00 Test Item Value Reference Range Comments PHOSPHORUS (BEAKER) (test ffij=663) 2.0 mg/dL 2.3-4.7 [id number] 07:48:00 Test Item Value Reference Range Comments MAGNESIUM (BEAKER) (test bpvy=477) 1.7 mg/dL 1.6-2.6 BASIC METABOLIC [id number] 07:48:00 Test Item Value Reference Range Comments SODIUM (BEAKER) (test 142 meq/L 136-145 zsbp=182) POTASSIUM (BEAKER) (test 3.3 meq/L 3.5-5.1 load=122) CHLORIDE (BEAKER) (test 106 meq/L 98-107 xwkf=306) CO2 (BEAKER) (test 26 meq/L 22-29 fyis=748) BLOOD UREA NITROGEN 19 mg/dL 7-21 (BEAKER) (test duwn=853) CREATININE (BEAKER) (test 1.97 mg/dL 0.57-1.25 lrie=703) GLUCOSE RANDOM (BEAKER) 113 mg/dL 70-105 (test bmgv=627) CALCIUM (BEAKER) (test 8.1 mg/dL 8.4-10.2 jdui=123) EGFR (BEAKER) (test 31 mL/min/1.73 sq m ESTIMATED GFR IS NOT xyoc=3154) ACCURATE CREATININE CLEARANCE IN PREDICTING GLOMERULAR FILTRATION RATE. ESTIMATED GFR IS NOT APPLICABLE FOR DIALYSIS PATIENTS. HEPATIC FUNCTION [id number] 07:48:00 Test Item Value Reference Range Comments TOTAL PROTEIN (BEAKER) (test hsxw=596) 5.7 gm/dL 6.0-8.3 ALBUMIN (BEAKER) (test zczd=7714) 3.1 g/dL 3.5-5.0 BILIRUBIN TOTAL (BEAKER) (test vcfi=598) 1.3 mg/dL 0.2-1.2 BILIRUBIN DIRECT (BEAKER) (test ujet=132) 0.8 mg/dL 0.1-0.5 ALKALINE PHOSPHATASE (BEAKER) (test vzpj=785) 51 U/L 40-150 AST (SGOT) (BEAKER) (test hhpc=245) 30 U/L 5-34 ALT (SGPT) (BEAKER) (test dwjx=944) 15 U/L 6-55 CBC W/PLT COUNT & AUTO [id number] 07:29:00 Test Item Value Reference Range Comments WHITE BLOOD CELL COUNT (BEAKER) (test mncp=521) 5.5 K/ L 3.5-10.5 RED BLOOD CELL COUNT (BEAKER) (test knkj=278) 2.97 M/ L 3.93-5.22 HEMOGLOBIN (BEAKER) (test dxvg=954) 9.2 GM/DL 11.2-15.7 HEMATOCRIT (BEAKER) (test lucu=195) 27.9 % 34.1-44.9 MEAN CORPUSCULAR VOLUME (BEAKER) (test uriv=141) 93.9 fL 79.4-94.8 MEAN CORPUSCULAR HEMOGLOBIN (BEAKER) (test 31.0 pg 25.6-32.2 mtkk=401) MEAN CORPUSCULAR HEMOGLOBIN CONC (BEAKER) (test 33.0 GM/DL 32.2-35.5 oqrp=211) RED CELL DISTRIBUTION WIDTH (BEAKER) (test 15.9 % 11.7-14.4 foob=977) PLATELET COUNT (BEAKER) (test ttns=637) 177 K/CU MM 150-450 MEAN PLATELET VOLUME (BEAKER) (test tqaz=393) 10.0 fL 9.4-12.3 NUCLEATED RED BLOOD CELLS (BEAKER) (test 0 /100 WBC 0-0 ggar=524) NEUTROPHILS RELATIVE PERCENT (BEAKER) (test 78 % rxyv=915) LYMPHOCYTES RELATIVE PERCENT (BEAKER) (test 18 % ewzu=077) MONOCYTES RELATIVE PERCENT (BEAKER) (test 2 % kynh=335) EOSINOPHILS RELATIVE PERCENT (BEAKER) (test 1 % lpbp=951) BASOPHILS RELATIVE PERCENT (BEAKER) (test 0 % ohvx=359) NEUTROPHILS ABSOLUTE COUNT (BEAKER) (test 4.29 K/ L 1.56-6.13 vrja=223) LYMPHOCYTES ABSOLUTE COUNT (BEAKER) (test 1.00 K/ L 1.18-3.74 oepu=769) MONOCYTES ABSOLUTE COUNT (BEAKER) (test 0.11 K/ L 0.24-0.36 mpms=588) EOSINOPHILS ABSOLUTE COUNT (BEAKER) (test 0.04 K/ L 0.04-0.36 tbdx=305) BASOPHILS ABSOLUTE COUNT (BEAKER) (test 0.02 K/ L 0.01-0.08 zaes=275) IMMATURE GRANULOCYTES-RELATIVE PERCENT (BEAKER) 0 % 0-1 (test ilmh=2692) U/S, [id number] 17:56:00Reason for exam:->ascitesFINAL REPORT Ultrasound-guided paracentesis. Clinical [...] Segundoeport Verified Date/Time: 02/18/2019 17:56:45 Reading Location: [address] Consult Reading Room [facility] METABOLIC [id number] 10:29:00 Test Item Value Reference Range Comments SODIUM (BEAKER) (test 136 meq/L 136-145 uayk=269) POTASSIUM (BEAKER) (test 3.2 meq/L 3.5-5.1 qqic=157) CHLORIDE (BEAKER) (test 106 meq/L 98-107 urjn=379) CO2 (BEAKER) (test 21 meq/L 22-29 nmtt=842) BLOOD UREA NITROGEN 21 mg/dL 7-21 (BEAKER) (test zbat=190) CREATININE (BEAKER) (test 2.30 mg/dL 0.57-1.25 wmmn=357) GLUCOSE RANDOM (BEAKER) 100 mg/dL 70-105 (test wgxm=186) CALCIUM (BEAKER) (test 7.9 mg/dL 8.4-10.2 okdt=084) EGFR (BEAKER) (test 26 mL/min/1.73 sq m ESTIMATED GFR IS NOT zfee=1051) ACCURATE CREATININE CLEARANCE IN PREDICTING GLOMERULAR FILTRATION RATE. ESTIMATED GFR IS NOT APPLICABLE FOR DIALYSIS PATIENTS. [id number] 10:16:00 Test Item Value Reference Range Comments PHOSPHORUS (BEAKER) (test ocij=775) 1.9 mg/dL 2.3-4.7 [id number] 10:16:00 Test Item Value Reference Range Comments MAGNESIUM (BEAKER) (test xflv=697) 2.0 mg/dL 1.6-2.6 HEPATIC FUNCTION [id number] 10:16:00 Test Item Value Reference Range Comments TOTAL PROTEIN (BEAKER) (test xmvo=296) 6.6 gm/dL 6.0-8.3 ALBUMIN (BEAKER) (test snvi=7420) 3.3 g/dL 3.5-5.0 BILIRUBIN TOTAL (BEAKER) (test ftqz=408) 1.2 mg/dL 0.2-1.2 BILIRUBIN DIRECT (BEAKER) (test bmdf=719) 0.6 mg/dL 0.1-0.5 ALKALINE PHOSPHATASE (BEAKER) (test evkt=599) 51 U/L 40-150 AST (SGOT) (BEAKER) (test sjpg=427) 30 U/L 5-34 ALT (SGPT) (BEAKER) (test rdkq=804) 16 U/L 6-55 [id number] 06:55:00 Test Item Value Reference Range Comments PROTIME (BEAKER) (test dhgz=600) 15.1 seconds 11.7-14.7 INR (BEAKER) (test nbbt=286) 1.2 <=5.9 PARTIAL THROMBOPLASTIN TIME (BEAKER) (test 31.5 seconds 22.5-36.0 zzle=707) RECOMMENDED COUMADIN/WARFARIN INR THERAPY RANGESSTANDARD DOSE: 2.0 - 3.0 Includes: PROPHYLAXIS forvenous thrombosis, systemic embolization; TREATMENT for venous thrombosis and/or pulmonary embolus.HIGH RISK: Target INR is 2.5-3.5 for patients with mechanical heart valves.For paracentesisFor paracentesisCBC W/PLT COUNT & AUTO [id number] 06:51:00 Test Item Value Reference Range Comments WHITE BLOOD CELL COUNT (BEAKER) (test hcsm=087) 6.0 K/ L 3.5-10.5 RED BLOOD CELL COUNT (BEAKER) (test vmwc=670) 2.89 M/ L 3.93-5.22 HEMOGLOBIN (BEAKER) (test dcny=288) 8.9 GM/DL 11.2-15.7 HEMATOCRIT (BEAKER) (test ixvn=286) 27.4 % 34.1-44.9 MEAN CORPUSCULAR VOLUME (BEAKER) (test jrez=473) 94.8 fL 79.4-94.8 MEAN CORPUSCULAR HEMOGLOBIN (BEAKER) (test 30.8 pg 25.6-32.2 bykb=375) MEAN CORPUSCULAR HEMOGLOBIN CONC (BEAKER) (test 32.5 GM/DL 32.2-35.5 zvnk=299) RED CELL DISTRIBUTION WIDTH (BEAKER) (test 16.2 % 11.7-14.4 eche=002) PLATELET COUNT (BEAKER) (test bzfj=444) 161 K/CU MM 150-450 MEAN PLATELET VOLUME (BEAKER) (test cdrm=725) 9.8 fL 9.4-12.3 NUCLEATED RED BLOOD CELLS (BEAKER) (test 0 /100 WBC 0-0 jhjj=758) NEUTROPHILS RELATIVE PERCENT (BEAKER) (test 77 % bnla=640) LYMPHOCYTES RELATIVE PERCENT (BEAKER) (test 18 % thet=115) MONOCYTES RELATIVE PERCENT (BEAKER) (test 4 % rcml=841) EOSINOPHILS RELATIVE PERCENT (BEAKER) (test 1 % ednb=396) BASOPHILS RELATIVE PERCENT (BEAKER) (test 0 % ddhg=003) NEUTROPHILS ABSOLUTE COUNT (BEAKER) (test 4.64 K/ L 1.56-6.13 njux=360) LYMPHOCYTES ABSOLUTE COUNT (BEAKER) (test 1.10 K/ L 1.18-3.74 nytb=711) MONOCYTES ABSOLUTE COUNT (BEAKER) (test 0.23 K/ L 0.24-0.36 azti=317) EOSINOPHILS ABSOLUTE COUNT (BEAKER) (test 0.03 K/ L 0.04-0.36 jaqw=434) BASOPHILS ABSOLUTE COUNT (BEAKER) (test 0.01 K/ L 0.01-0.08 cfyz=728) IMMATURE GRANULOCYTES-RELATIVE PERCENT (BEAKER) 1 % 0-1 (test lstg=5736) BASIC METABOLIC [id number] 09:31:00 Test Item Value Reference Range Comments SODIUM (BEAKER) (test 139 meq/L 136-145 yplo=431) POTASSIUM (BEAKER) (test 3.5 meq/L 3.5-5.1 nyda=405) CHLORIDE (BEAKER) (test 106 meq/L 98-107 fugl=687) CO2 (BEAKER) (test 23 meq/L 22-29 ibah=857) BLOOD UREA NITROGEN 20 mg/dL 7-21 (BEAKER) (test umjr=136) CREATININE (BEAKER) (test 2.29 mg/dL 0.57-1.25 fpag=035) GLUCOSE RANDOM (BEAKER) 130 mg/dL 70-105 (test ygve=405) CALCIUM (BEAKER) (test 7.8 mg/dL 8.4-10.2 oodv=859) EGFR (BEAKER) (test 26 mL/min/1.73 sq m ESTIMATED GFR IS NOT bmeg=8551) ACCURATE CREATININE CLEARANCE IN PREDICTING GLOMERULAR FILTRATION RATE. ESTIMATED GFR IS NOT APPLICABLE FOR DIALYSIS PATIENTS. COMPREHENSIVE METABOLIC [id number] 09:31:00 Test Item Value Reference Range Comments TOTAL PROTEIN (BEAKER) 5.9 gm/dL 6.0-8.3 (test mllo=013) ALBUMIN (BEAKER) (test 3.2 g/dL 3.5-5.0 oovz=0223) ALKALINE PHOSPHATASE 46 U/L 40-150 (BEAKER) (test tbik=817) BILIRUBIN TOTAL (BEAKER) 0.8 mg/dL 0.2-1.2 (test almm=047) SODIUM (BEAKER) (test 139 meq/L 136-145 xqso=282) POTASSIUM (BEAKER) (test 3.5 meq/L 3.5-5.1 nkuo=656) CHLORIDE (BEAKER) (test 106 meq/L 98-107 xwny=319) CO2 (BEAKER) (test 23 meq/L 22-29 jubj=502) BLOOD UREA NITROGEN 20 mg/dL 7-21 (BEAKER) (test aoyo=086) CREATININE (BEAKER) (test 2.29 mg/dL 0.57-1.25 gwdx=626) GLUCOSE RANDOM (BEAKER) 130 mg/dL 70-105 (test imbb=633) CALCIUM (BEAKER) (test 7.8 mg/dL 8.4-10.2 zkhg=937) AST (SGOT) (BEAKER) (test 32 U/L 5-34 cpgr=982) ALT (SGPT) (BEAKER) (test 16 U/L 6-55 eqlu=427) EGFR (BEAKER) (test 26 mL/min/1.73 sq m ESTIMATED GFR IS NOT waye=1660) ACCURATE CREATININE CLEARANCE IN PREDICTING GLOMERULAR FILTRATION RATE. ESTIMATED GFR IS NOT APPLICABLE FOR DIALYSIS PATIENTS. [id number] 09:30:00 Test Item Value Reference Range Comments PHOSPHORUS (BEAKER) (test zpfm=963) 2.5 mg/dL 2.3-4.7 URIC [id number] 09:30:00 Test Item Value Reference Range Comments URIC ACID (BEAKER) (test afxl=205) 8.7 mg/dL 2.6-7.2 HEPATIC FUNCTION [id number] 09:30:00 Test Item Value Reference Range Comments TOTAL PROTEIN (BEAKER) (test gynv=760) 5.9 gm/dL 6.0-8.3 ALBUMIN (BEAKER) (test ghlf=1579) 3.2 g/dL 3.5-5.0 BILIRUBIN TOTAL (BEAKER) (test pvpo=749) 0.8 mg/dL 0.2-1.2 BILIRUBIN DIRECT (BEAKER) (test onmr=094) 0.5 mg/dL 0.1-0.5 ALKALINE PHOSPHATASE (BEAKER) (test onal=835) 46 U/L 40-150 AST (SGOT) (BEAKER) (test kyko=285) 32 U/L 5-34 ALT (SGPT) (BEAKER) (test rhdd=006) 16 U/L 6-55 CALCIUM, [id number] 08:41:00 Test Item Value Reference Range Comments CALCIUM IONIZED (BEAKER) (test kvbu=091) 0.92 mmol/L 1.12-1.27 PH, BLOOD (BEAKER) (test anwc=6884) 7.41 [id number] 08:38:00 Test Item Value Reference Range Comments MAGNESIUM (BEAKER) (test ssiu=537) 1.8 mg/dL 1.6-2.6 CBC W/PLT COUNT & AUTO [id number] 08:34:00 Test Item Value Reference Range Comments WHITE BLOOD CELL COUNT (BEAKER) (test jtrb=679) 6.1 K/ L 3.5-10.5 RED BLOOD CELL COUNT (BEAKER) (test zhkq=401) 2.29 M/ L 3.93-5.22 HEMOGLOBIN (BEAKER) (test wria=256) 7.1 GM/DL 11.2-15.7 HEMATOCRIT (BEAKER) (test gvhc=172) 22.6 % 34.1-44.9 MEAN CORPUSCULAR VOLUME (BEAKER) (test bdse=969) 98.7 fL 79.4-94.8 MEAN CORPUSCULAR HEMOGLOBIN (BEAKER) (test 31.0 pg 25.6-32.2 btil=014) MEAN CORPUSCULAR HEMOGLOBIN CONC (BEAKER) (test 31.4 GM/DL 32.2-35.5 lrcc=284) RED CELL DISTRIBUTION WIDTH (BEAKER) (test 13.9 % 11.7-14.4 rxro=866) PLATELET COUNT (BEAKER) (test eugc=737) 193 K/CU MM 150-450 MEAN PLATELET VOLUME (BEAKER) (test ayid=618) 9.0 fL 9.4-12.3 NUCLEATED RED BLOOD CELLS (BEAKER) (test 0 /100 WBC 0-0 cfgn=597) NEUTROPHILS RELATIVE PERCENT (BEAKER) (test 80 % ghpq=999) LYMPHOCYTES RELATIVE PERCENT (BEAKER) (test 16 % acpw=633) MONOCYTES RELATIVE PERCENT (BEAKER) (test 4 % gazn=885) EOSINOPHILS RELATIVE PERCENT (BEAKER) (test 0 % oihs=628) BASOPHILS RELATIVE PERCENT (BEAKER) (test 0 % rkpv=080) NEUTROPHILS ABSOLUTE COUNT (BEAKER) (test 4.88 K/ L 1.56-6.13 aegs=076) LYMPHOCYTES ABSOLUTE COUNT (BEAKER) (test 0.95 K/ L 1.18-3.74 lhpn=112) MONOCYTES ABSOLUTE COUNT (BEAKER) (test 0.23 K/ L 0.24-0.36 dxao=156) EOSINOPHILS ABSOLUTE COUNT (BEAKER) (test 0.00 K/ L 0.04-0.36 gnnt=004) BASOPHILS ABSOLUTE COUNT (BEAKER) (test 0.01 K/ L 0.01-0.08 hrgo=394) IMMATURE GRANULOCYTES-RELATIVE PERCENT (BEAKER) 1 % 0-1 (test xqfn=5016) C. DIFFICILE GDH [id number] 19:27:00 Test Item Value Reference Range Comments CDT TOXIN (test Negative Negative vehp=[id number]) CDT GDH ANTIGEN (test Negative Negative No indication of Clostridium ifsq=[id number]) difficile infection and no colonization. Discontinue enteric isolation and therapy. Testing performed by [employer] Rapid Cassette Assay. For GDH, published sensitivity of the assay is 98.7% compared to cytotoxicity testing. For Toxin AB, published sensitivity is 87.8% and specificity 99.4% compared to cytotoxicity testing.Verification of kit performance was done by the [facility] Microbiology Lab prior to clinical use.CBC W/PLT COUNT & AUTO [id number] 13:33:00 Test Item Value Reference Range Comments WHITE BLOOD CELL COUNT (BEAKER) (test dznj=287) 7.3 K/ L 3.5-10.5 RED BLOOD CELL COUNT (BEAKER) (test dmdc=068) 2.43 M/ L 3.93-5.22 HEMOGLOBIN (BEAKER) (test utzg=297) 7.6 GM/DL 11.2-15.7 HEMATOCRIT (BEAKER) (test moqo=921) 24.4 % 34.1-44.9 MEAN CORPUSCULAR VOLUME (BEAKER) (test dvnu=547) 100.4 fL 79.4-94.8 MEAN CORPUSCULAR HEMOGLOBIN (BEAKER) (test 31.3 pg 25.6-32.2 mxhm=837) MEAN CORPUSCULAR HEMOGLOBIN CONC (BEAKER) (test 31.1 GM/DL 32.2-35.5 xpii=959) RED CELL DISTRIBUTION WIDTH (BEAKER) (test 14.1 % 11.7-14.4 uhbb=775) PLATELET COUNT (BEAKER) (test bmao=866) 214 K/CU MM 150-450 MEAN PLATELET VOLUME (BEAKER) (test iahq=187) 8.7 fL 9.4-12.3 NUCLEATED RED BLOOD CELLS (BEAKER) (test 0 /100 WBC 0-0 stwy=284) (MANUAL DIFFERENTIAL)2019-02-16 13:33:00 Test Item Value Reference Range Comments NEUTROPHILS - REL (DIFF) (BEAKER) (test okyo=1445) 74 % LYMPHOCYTES - REL (DIFF) (BEAKER) (test xsva=3800) 14 % MONOCYTES - REL (DIFF) (BEAKER) (test zegg=9466) 10 % EOSINOPHILS - REL (DIFF) (BEAKER) (test vzxc=1091) 1 % BASOPHILS - REL (DIFF) (BEAKER) (test jzhm=5918) 1 % NEUTROPHILS - ABS (DIFF) (BEAKER) (test hvrh=5462) 5.40 K/ L 1.80-8.00 LYMPHOCYTES - ABS (DIFF) (BEAKER) (test utim=9792) 1.02 K/ L 1.48-4.50 MONOCYTES - ABS (DIFF) (BEAKER) (test lpuk=1639) 0.73 K/ L 0.00-1.30 EOSINOPHILS - ABS (DIFF) (BEAKER) (test meqb=4433) 0.07 K/ L 0.00-0.50 BASOPHILS - ABS (DIFF) (BEAKER) (test kfks=2734) 0.07 K/ L 0.00-0.20 TOTAL COUNTED (BEAKER) (test uhma=7469) 100 WBC MORPHOLOGY (BEAKER) (test ekmt=388) Normal PLT MORPHOLOGY (BEAKER) (test pybb=677) Normal RBC MORPHOLOGY (BEAKER) (test elbv=111) Normal CALCIUM, [id number] 08:55:00 Test Item Value Reference Range Comments CALCIUM IONIZED (BEAKER) (test bdpo=955) 0.81 mmol/L 1.12-1.27 PH, BLOOD (BEAKER) (test itje=9701) 7.38 COMPREHENSIVE METABOLIC [id number] 07:16:00 Test Item Value Reference Range Comments TOTAL PROTEIN (BEAKER) 6.3 gm/dL 6.0-8.3 (test edqk=011) ALBUMIN (BEAKER) (test 3.5 g/dL 3.5-5.0 hups=2420) ALKALINE PHOSPHATASE 39 U/L 40-150 (BEAKER) (test opdw=139) BILIRUBIN TOTAL (BEAKER) 1.3 mg/dL 0.2-1.2 (test qugu=135) SODIUM (BEAKER) (test 140 meq/L 136-145 llxt=636) POTASSIUM (BEAKER) (test 3.6 meq/L 3.5-5.1 ppoj=686) CHLORIDE (BEAKER) (test 109 meq/L 98-107 qcja=217) CO2 (BEAKER) (test 19 meq/L 22-29 tvpd=086) BLOOD UREA NITROGEN 16 mg/dL 7-21 (BEAKER) (test iosk=052) CREATININE (BEAKER) (test 2.52 mg/dL 0.57-1.25 rtww=359) GLUCOSE RANDOM (BEAKER) 116 mg/dL 70-105 (test unwr=674) CALCIUM (BEAKER) (test 8.4 mg/dL 8.4-10.2 ovnc=233) AST (SGOT) (BEAKER) (test 25 U/L 5-34 myzx=951) ALT (SGPT) (BEAKER) (test 13 U/L 6-55 hote=029) EGFR (BEAKER) (test 23 mL/min/1.73 sq m ESTIMATED GFR IS NOT hcwn=1022) ACCURATE CREATININE CLEARANCE IN PREDICTING GLOMERULAR FILTRATION RATE. ESTIMATED GFR IS NOT APPLICABLE FOR DIALYSIS PATIENTS. BASIC METABOLIC [id number] 07:15:00 Test Item Value Reference Range Comments SODIUM (BEAKER) (test 140 meq/L 136-145 ubpu=826) POTASSIUM (BEAKER) (test 3.6 meq/L 3.5-5.1 hdom=479) CHLORIDE (BEAKER) (test 109 meq/L 98-107 afmh=583) CO2 (BEAKER) (test 19 meq/L 22-29 gduw=908) BLOOD UREA NITROGEN 16 mg/dL 7-21 (BEAKER) (test ambt=699) CREATININE (BEAKER) (test 2.52 mg/dL 0.57-1.25 fkrk=371) GLUCOSE RANDOM (BEAKER) 116 mg/dL 70-105 (test sjea=453) CALCIUM (BEAKER) (test 8.4 mg/dL 8.4-10.2 jxnh=641) EGFR (BEAKER) (test 23 mL/min/1.73 sq m ESTIMATED GFR IS NOT vihg=9310) ACCURATE CREATININE CLEARANCE IN PREDICTING GLOMERULAR FILTRATION RATE. ESTIMATED GFR IS NOT APPLICABLE FOR DIALYSIS PATIENTS. [id number] 07:10:00 Test Item Value Reference Range Comments PHOSPHORUS (BEAKER) (test lchv=416) 1.9 mg/dL 2.3-4.7 [id number] 07:10:00 Test Item Value Reference Range Comments MAGNESIUM (BEAKER) (test fitd=698) 1.9 mg/dL 1.6-2.6 HEPATIC FUNCTION [id number] 07:10:00 Test Item Value Reference Range Comments TOTAL PROTEIN (BEAKER) (test frwu=095) 6.3 gm/dL 6.0-8.3 ALBUMIN (BEAKER) (test nmin=9041) 3.5 g/dL 3.5-5.0 BILIRUBIN TOTAL (BEAKER) (test lxgn=163) 1.3 mg/dL 0.2-1.2 BILIRUBIN DIRECT (BEAKER) (test ncak=553) 0.8 mg/dL 0.1-0.5 ALKALINE PHOSPHATASE (BEAKER) (test qbej=060) 39 U/L 40-150 AST (SGOT) (BEAKER) (test vrmj=223) 25 U/L 5-34 ALT (SGPT) (BEAKER) (test llgs=628) 13 U/L 6-55 RAD, CHEST, 1 VIEW, NON [id number] 21:33:00Reason for exam:->PICC LINE TIP VERIFICATIONShould this [...] MDReport Verified Date/Time: 02/15 21:33:22 Reading Location: [address] Reading Room CBC W/PLT COUNT & AUTO [id number] 11:37:00 Test Item Value Reference Range Comments WHITE BLOOD CELL COUNT (BEAKER) (test faot=175) 7.1 K/ L 3.5-10.5 RED BLOOD CELL COUNT (BEAKER) (test kuun=157) 2.43 M/ L 3.93-5.22 HEMOGLOBIN (BEAKER) (test mqhn=464) 7.7 GM/DL 11.2-15.7 HEMATOCRIT (BEAKER) (test mhif=026) 24.3 % 34.1-44.9 MEAN CORPUSCULAR VOLUME (BEAKER) (test snnc=802) 100.0 fL 79.4-94.8 MEAN CORPUSCULAR HEMOGLOBIN (BEAKER) (test 31.7 pg 25.6-32.2 afov=853) MEAN CORPUSCULAR HEMOGLOBIN CONC (BEAKER) (test 31.7 GM/DL 32.2-35.5 ittd=801) RED CELL DISTRIBUTION WIDTH (BEAKER) (test 13.8 % 11.7-14.4 fsif=260) PLATELET COUNT (BEAKER) (test ljpi=408) 216 K/CU MM 150-450 MEAN PLATELET VOLUME (BEAKER) (test rwnq=398) 8.8 fL 9.4-12.3 NUCLEATED RED BLOOD CELLS (BEAKER) (test 0 /100 WBC 0-0 ceve=615) (CELLAVISION MANUAL DIFF)[id number] 11:37:00 Test Item Value Reference Range Comments NEUTROPHILS - REL (CELLAVISION)(BEAKER) (test 75 % mvdf=7617) LYMPHOCYTES - REL (CELLAVISION)(BEAKER) (test 20 % lfln=1138) MONOCYTES - REL (CELLAVISION)(BEAKER) (test 4 % jfbg=0727) ATYPICAL LYMPHOCYTES - REL (CELLAVISION)(BEAKER) 1 % 0-0 (test kyws=2428) NEUTROPHILS - ABS (CELLAVISION)(BEAKER) (test 5.33 K/ul 1.56-6.13 bsjb=9601) LYMPHOCYTES - ABS (CELLAVISION)(BEAKER) (test 1.42 K/ul 1.18-3.74 edas=8431) MONOCYTES - ABS (CELLAVISION)(BEAKER) (test 0.28 K/uL 0.24-0.36 nusb=0187) ATYPICAL LYMPHOCYTES - ABS (CELLAVISION)(BEAKER) 0.07 K/uL 0.00-0.00 (test svth=3336) TOTAL COUNTED (BEAKER) (test wshg=8519) 100 WBC MORPHOLOGY (BEAKER) (test pdfm=296) Normal LARGE PLT(BEAKER) (test ybfm=0699) Present POLYCHROMATOPHILLIC RBCS(BEAKER) (test xvzt=132) 1+ few HYPOCHROMIA (BEAKER) (test sewj=556) 1+ few ARTIFACT (CELLAVISION)(BEAKER) (test rfzo=4050) Present PLATELET CONCENTRATION (CELLAVISION)(BEAKER) (test Adequate tzzo=8589) Received comment: User comments: Slide comments:CREATININE, RANDOM [id number] 08:13:00 Test Item Value Reference Range Comments CREATININE URINE (BEAKER) (test szmp=339) 166.6 mg/dL Reference Range: No NormalsPROTEIN, RANDOM [id number] 07:32:00 Test Item Value Reference Range Comments PROTEIN, URINE (BEAKER) (test giqp=3940) 58 mg/dL 0-14 CALCIUM, [id number] 07:05:00 Test Item Value Reference Range Comments CALCIUM IONIZED (BEAKER) (test uctm=763) 0.72 mmol/L 1.12-1.27 PH, BLOOD (BEAKER) (test ewnp=4200) 7.50 CBC W/PLT COUNT & AUTO [id number] 06:47:00 Test Item Value Reference Range Comments WHITE BLOOD CELL COUNT (BEAKER) (test uoxl=292) 7.2 K/ L 3.5-10.5 RED BLOOD CELL COUNT (BEAKER) (test iafs=670) 2.42 M/ L 3.93-5.22 HEMOGLOBIN (BEAKER) (test knsy=823) 7.5 GM/DL 11.2-15.7 HEMATOCRIT (BEAKER) (test ysle=877) 24.2 % 34.1-44.9 MEAN CORPUSCULAR VOLUME (BEAKER) (test okzf=752) 100.0 fL 79.4-94.8 MEAN CORPUSCULAR HEMOGLOBIN (BEAKER) (test 31.0 pg 25.6-32.2 eeqv=129) MEAN CORPUSCULAR HEMOGLOBIN CONC (BEAKER) (test 31.0 GM/DL 32.2-35.5 gtql=983) RED CELL DISTRIBUTION WIDTH (BEAKER) (test 14.0 % 11.7-14.4 anjl=425) PLATELET COUNT (BEAKER) (test wpdg=162) 220 K/CU MM 150-450 MEAN PLATELET VOLUME (BEAKER) (test zafe=949) 8.5 fL 9.4-12.3 NUCLEATED RED BLOOD CELLS (BEAKER) (test 0 /100 WBC 0-0 rbvg=687) NEUTROPHILS RELATIVE PERCENT (BEAKER) (test 69 % uqrq=842) LYMPHOCYTES RELATIVE PERCENT (BEAKER) (test 22 % bizu=754) MONOCYTES RELATIVE PERCENT (BEAKER) (test 7 % kebl=143) EOSINOPHILS RELATIVE PERCENT (BEAKER) (test 1 % jzcw=933) BASOPHILS RELATIVE PERCENT (BEAKER) (test 1 % caaa=806) NEUTROPHILS ABSOLUTE COUNT (BEAKER) (test 4.98 K/ L 1.56-6.13 ejph=003) LYMPHOCYTES ABSOLUTE COUNT (BEAKER) (test 1.60 K/ L 1.18-3.74 vule=011) MONOCYTES ABSOLUTE COUNT (BEAKER) (test 0.53 K/ L 0.24-0.36 vaon=484) EOSINOPHILS ABSOLUTE COUNT (BEAKER) (test 0.04 K/ L 0.04-0.36 karz=590) BASOPHILS ABSOLUTE COUNT (BEAKER) (test 0.04 K/ L 0.01-0.08 ydzl=480) IMMATURE GRANULOCYTES-RELATIVE PERCENT (BEAKER) 0 % 0-1 (test fcbp=7346) COMPREHENSIVE METABOLIC [id number] 06:39:00 Test Item Value Reference Range Comments TOTAL PROTEIN (BEAKER) 6.4 gm/dL 6.0-8.3 (test qisz=869) ALBUMIN (BEAKER) (test 3.6 g/dL 3.5-5.0 uble=8907) ALKALINE PHOSPHATASE 32 U/L 40-150 (BEAKER) (test uuxg=977) BILIRUBIN TOTAL (BEAKER) 1.4 mg/dL 0.2-1.2 (test rvbj=142) SODIUM (BEAKER) (test 140 meq/L 136-145 xeyz=524) POTASSIUM (BEAKER) (test 3.8 meq/L 3.5-5.1 yqbe=418) CHLORIDE (BEAKER) (test 110 meq/L 98-107 meuu=411) CO2 (BEAKER) (test 19 meq/L 22-29 grkf=808) BLOOD UREA NITROGEN 15 mg/dL 7-21 (BEAKER) (test yioi=070) CREATININE (BEAKER) (test 2.30 mg/dL 0.57-1.25 mjtd=674) GLUCOSE RANDOM (BEAKER) 102 mg/dL 70-105 (test eyat=170) CALCIUM (BEAKER) (test 8.0 mg/dL 8.4-10.2 uvhr=261) AST (SGOT) (BEAKER) (test 17 U/L 5-34 azqx=262) ALT (SGPT) (BEAKER) (test 9 U/L 6-55 vqkl=724) EGFR (BEAKER) (test 26 mL/min/1.73 sq m ESTIMATED GFR IS NOT wjbm=4638) ACCURATE CREATININE CLEARANCE IN PREDICTING GLOMERULAR FILTRATION RATE. ESTIMATED GFR IS NOT APPLICABLE FOR DIALYSIS PATIENTS. HEPATIC FUNCTION [id number] 06:23:00 Test Item Value Reference Range Comments TOTAL PROTEIN (BEAKER) (test zgcl=961) 6.4 gm/dL 6.0-8.3 ALBUMIN (BEAKER) (test ilsx=7026) 3.6 g/dL 3.5-5.0 BILIRUBIN TOTAL (BEAKER) (test aydh=572) 1.3 mg/dL 0.2-1.2 BILIRUBIN DIRECT (BEAKER) (test kazu=569) 0.7 mg/dL 0.1-0.5 ALKALINE PHOSPHATASE (BEAKER) (test ffkj=753) 34 U/L 40-150 AST (SGOT) (BEAKER) (test bsfj=603) 19 U/L 5-34 ALT (SGPT) (BEAKER) (test tazu=007) 8 U/L 6-55 [id number] 06:22:00 Test Item Value Reference Range Comments PHOSPHORUS (BEAKER) (test uggi=638) 2.3 mg/dL 2.3-4.7 [id number] 06:22:00 Test Item Value Reference Range Comments MAGNESIUM (BEAKER) (test ylfg=445) 2.2 mg/dL 1.6-2.6 HEPATIC FUNCTION [id number] 06:22:00 Test Item Value Reference Range Comments TOTAL PROTEIN (BEAKER) (test rcuo=002) 6.4 gm/dL 6.0-8.3 ALBUMIN (BEAKER) (test mdcy=2467) 3.6 g/dL 3.5-5.0 BILIRUBIN TOTAL (BEAKER) (test nvtf=947) 1.4 mg/dL 0.2-1.2 BILIRUBIN DIRECT (BEAKER) (test gilq=976) 0.7 mg/dL 0.1-0.5 ALKALINE PHOSPHATASE (BEAKER) (test mtzd=645) 32 U/L 40-150 AST (SGOT) (BEAKER) (test jnml=382) 17 U/L 5-34 ALT (SGPT) (BEAKER) (test dgux=364) 9 U/L 6-55 BLOOD [id number] 20:01:00 Test Item Value Reference Range Comments CULTURE (BEAKER) (test ipug=9208) No growth in 5 days HEMOGLOBIN AND [id number] 13:02:00 Test Item Value Reference Range Comments HEMOGLOBIN (BEAKER) (test hdjr=793) 8.1 GM/DL 11.2-15.7 HEMATOCRIT (BEAKER) (test mkjj=411) 25.7 % 34.1-44.9 ANTI-MITOCHONDRIAL AB, REFLEX TO [id number] 12:19:00 Test Item Value Reference Range Comments SCAN RESULT (test frhx=[id number]) [id number] 07:43:00 Test Item Value Reference Range Comments PHOSPHORUS (BEAKER) (test vama=765) 1.3 mg/dL 2.3-4.7 CALCIUM, [id number] 06:25:00 Test Item Value Reference Range Comments CALCIUM IONIZED (BEAKER) (test wkmv=132) 1.05 mmol/L 1.12-1.27 PH, BLOOD (BEAKER) (test yncx=5228) 7.44 COMPREHENSIVE METABOLIC [id number] 06:24:00 Test Item Value Reference Range Comments TOTAL PROTEIN (BEAKER) 6.3 gm/dL 6.0-8.3 (test datd=594) ALBUMIN (BEAKER) (test 3.8 g/dL 3.5-5.0 cnzf=3795) ALKALINE PHOSPHATASE 31 U/L 40-150 (BEAKER) (test qcwe=974) BILIRUBIN TOTAL (BEAKER) 1.3 mg/dL 0.2-1.2 (test fyjh=245) SODIUM (BEAKER) (test 141 meq/L 136-145 ztgt=231) POTASSIUM (BEAKER) (test 3.5 meq/L 3.5-5.1 nwjz=347) CHLORIDE (BEAKER) (test 110 meq/L 98-107 died=487) CO2 (BEAKER) (test 22 meq/L 22-29 ezoz=976) BLOOD UREA NITROGEN 13 mg/dL 7-21 (BEAKER) (test pspf=703) CREATININE (BEAKER) (test 2.36 mg/dL 0.57-1.25 pzmo=706) GLUCOSE RANDOM (BEAKER) 108 mg/dL 70-105 (test ghyf=910) CALCIUM (BEAKER) (test 8.2 mg/dL 8.4-10.2 nrva=924) AST (SGOT) (BEAKER) (test 14 U/L 5-34 xfti=324) ALT (SGPT) (BEAKER) (test 6 U/L 6-55 ckav=983) EGFR (BEAKER) (test 25 mL/min/1.73 sq m ESTIMATED GFR IS NOT tjdl=8182) ACCURATE CREATININE CLEARANCE IN PREDICTING GLOMERULAR FILTRATION RATE. ESTIMATED GFR IS NOT APPLICABLE FOR DIALYSIS PATIENTS. [id number] 06:17:00 Test Item Value Reference Range Comments MAGNESIUM (BEAKER) (test tbuc=882) 2.2 mg/dL 1.6-2.6 CBC W/PLT COUNT & AUTO [id number] 05:33:00 Test Item Value Reference Range Comments WHITE BLOOD CELL COUNT (BEAKER) (test zyxw=912) 5.8 K/ L 3.5-10.5 RED BLOOD CELL COUNT (BEAKER) (test rbcd=427) 2.22 M/ L 3.93-5.22 HEMOGLOBIN (BEAKER) (test dmiu=406) 7.0 GM/DL 11.2-15.7 HEMATOCRIT (BEAKER) (test yals=547) 22.5 % 34.1-44.9 MEAN CORPUSCULAR VOLUME (BEAKER) (test flxq=234) 101.4 fL 79.4-94.8 MEAN CORPUSCULAR HEMOGLOBIN (BEAKER) (test 31.5 pg 25.6-32.2 auhd=646) MEAN CORPUSCULAR HEMOGLOBIN CONC (BEAKER) (test 31.1 GM/DL 32.2-35.5 owra=139) RED CELL DISTRIBUTION WIDTH (BEAKER) (test 13.6 % 11.7-14.4 fczb=291) PLATELET COUNT (BEAKER) (test fsks=372) 169 K/CU MM 150-450 MEAN PLATELET VOLUME (BEAKER) (test apyk=006) 8.5 fL 9.4-12.3 NUCLEATED RED BLOOD CELLS (BEAKER) (test 0 /100 WBC 0-0 ntmg=490) NEUTROPHILS RELATIVE PERCENT (BEAKER) (test 67 % udpx=476) LYMPHOCYTES RELATIVE PERCENT (BEAKER) (test 22 % rwet=226) MONOCYTES RELATIVE PERCENT (BEAKER) (test 9 % lkfs=108) EOSINOPHILS RELATIVE PERCENT (BEAKER) (test 1 % gypc=730) BASOPHILS RELATIVE PERCENT (BEAKER) (test 1 % sfgu=301) NEUTROPHILS ABSOLUTE COUNT (BEAKER) (test 3.84 K/ L 1.56-6.13 bcrj=555) LYMPHOCYTES ABSOLUTE COUNT (BEAKER) (test 1.28 K/ L 1.18-3.74 npxu=465) MONOCYTES ABSOLUTE COUNT (BEAKER) (test 0.50 K/ L 0.24-0.36 jhzm=942) EOSINOPHILS ABSOLUTE COUNT (BEAKER) (test 0.07 K/ L 0.04-0.36 ciwe=703) BASOPHILS ABSOLUTE COUNT (BEAKER) (test 0.06 K/ L 0.01-0.08 smkl=318) IMMATURE GRANULOCYTES-RELATIVE PERCENT (BEAKER) 0 % 0-1 (test aiww=0050) RAD, CHEST, 1 VIEW, NON [id number] 12:56:00Reason for exam:->edemaShould this be performed at [...] MDReport Verified Date/Time: 2018 12:56:07 Reading Location: [facility] Mammo Reading Room [id number] 11:09: 00Medical Cytology Report Case: [id number] Authorizing Provider: Charles Jaimes NP Collected : 02/09/2019 1600 Ordering Location: [place] [address] ICU Received: 02/10/2019 0805 Pathologist: Ayesha Vance MD Specimen: Peritoneal Fluid PERITONEAL FLUID (CYTOSPINS AND CELL BLOCK): - SCATTERED ATYPICAL CELLS, COMPATIBLE WITH METASTATIC ADENOCARCINOMA (SEE COMMENT) Signing Pathologist Direct Phone Line: [phone] signed by Ayesha Vance MD on 02/13/2019 at 11:09 AMThe patient has a recent sample of peritoneal fluid ([id number]) with metastatic adenocarcinoma. In the current sample , atypical cells with similar features are seen.Please see the prior sample (C19 -834) for additional evaluation and information. 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, [facility], [address] [place] [address], [facility]St[facility], Department of Path[facility], [address] [place] [address], b-TYPE NATRIURETIC FACTOR (BNP)2019-02-13 10:48:00 Test Item Value Reference Range Comments B-TYPE NATRIURETIC PEPTIDE (BEAKER) (test 107 pg/mL 0-100 gsjb=519) COMPREHENSIVE METABOLIC [id number] 10:41:00 Test Item Value Reference Range Comments TOTAL PROTEIN (BEAKER) 6.8 gm/dL 6.0-8.3 (test xvco=197) ALBUMIN (BEAKER) (test 4.2 g/dL 3.5-5.0 htkk=6564) ALKALINE PHOSPHATASE 35 U/L 40-150 (BEAKER) (test jnzh=725) BILIRUBIN TOTAL (BEAKER) 1.3 mg/dL 0.2-1.2 (test kesx=134) SODIUM (BEAKER) (test 143 meq/L 136-145 rxpi=530) POTASSIUM (BEAKER) (test 3.3 meq/L 3.5-5.1 twum=541) CHLORIDE (BEAKER) (test 111 meq/L 98-107 wxbv=318) CO2 (BEAKER) (test 20 meq/L 22-29 gsxc=042) BLOOD UREA NITROGEN 12 mg/dL 7-21 (BEAKER) (test ugwf=402) CREATININE (BEAKER) (test 2.68 mg/dL 0.57-1.25 jmms=317) GLUCOSE RANDOM (BEAKER) 97 mg/dL 70-105 (test vbbi=388) CALCIUM (BEAKER) (test 8.6 mg/dL 8.4-10.2 wadd=535) AST (SGOT) (BEAKER) (test 13 U/L 5-34 hmps=832) ALT (SGPT) (BEAKER) (test 6 U/L 6-55 rkak=247) EGFR (BEAKER) (test 22 mL/min/1.73 sq m ESTIMATED GFR IS NOT ghyq=2573) ACCURATE CREATININE CLEARANCE IN PREDICTING GLOMERULAR FILTRATION RATE. ESTIMATED GFR IS NOT APPLICABLE FOR DIALYSIS PATIENTS. BASIC METABOLIC [id number] 10:41:00 Test Item Value Reference Range Comments SODIUM (BEAKER) (test 143 meq/L 136-145 oink=977) POTASSIUM (BEAKER) (test 3.3 meq/L 3.5-5.1 ccmv=271) CHLORIDE (BEAKER) (test 111 meq/L 98-107 pksw=943) CO2 (BEAKER) (test 20 meq/L 22-29 bthc=185) BLOOD UREA NITROGEN 12 mg/dL 7-21 (BEAKER) (test vsax=540) CREATININE (BEAKER) (test 2.68 mg/dL 0.57-1.25 nvfh=531) GLUCOSE RANDOM (BEAKER) 97 mg/dL 70-105 (test susa=946) CALCIUM (BEAKER) (test 8.6 mg/dL 8.4-10.2 hzgz=382) EGFR (BEAKER) (test 22 mL/min/1.73 sq m ESTIMATED GFR IS NOT ngca=4645) ACCURATE CREATININE CLEARANCE IN PREDICTING GLOMERULAR FILTRATION RATE. ESTIMATED GFR IS NOT APPLICABLE FOR DIALYSIS PATIENTS. CBC W/PLT COUNT & AUTO [id number] 10:37:00 Test Item Value Reference Range Comments WHITE BLOOD CELL COUNT (BEAKER) (test ouhq=681) 6.0 K/ L 3.5-10.5 RED BLOOD CELL COUNT (BEAKER) (test lppz=968) 2.33 M/ L 3.93-5.22 HEMOGLOBIN (BEAKER) (test zaxz=665) 7.6 GM/DL 11.2-15.7 HEMATOCRIT (BEAKER) (test gxqr=600) 23.2 % 34.1-44.9 MEAN CORPUSCULAR VOLUME (BEAKER) (test qdfw=566) 99.6 fL 79.4-94.8 MEAN CORPUSCULAR HEMOGLOBIN (BEAKER) (test 32.6 pg 25.6-32.2 ewzd=278) MEAN CORPUSCULAR HEMOGLOBIN CONC (BEAKER) (test 32.8 GM/DL 32.2-35.5 pzew=959) RED CELL DISTRIBUTION WIDTH (BEAKER) (test 13.6 % 11.7-14.4 artw=015) PLATELET COUNT (BEAKER) (test hhum=926) 210 K/CU MM 150-450 MEAN PLATELET VOLUME (BEAKER) (test yvfy=601) 8.9 fL 9.4-12.3 NUCLEATED RED BLOOD CELLS (BEAKER) (test 0 /100 WBC 0-0 eypt=656) NEUTROPHILS RELATIVE PERCENT (BEAKER) (test 69 % ursu=896) LYMPHOCYTES RELATIVE PERCENT (BEAKER) (test 23 % eris=268) MONOCYTES RELATIVE PERCENT (BEAKER) (test 6 % jvwz=100) EOSINOPHILS RELATIVE PERCENT (BEAKER) (test 1 % mlmc=992) BASOPHILS RELATIVE PERCENT (BEAKER) (test 1 % gpox=837) NEUTROPHILS ABSOLUTE COUNT (BEAKER) (test 4.14 K/ L 1.56-6.13 mmwu=136) LYMPHOCYTES ABSOLUTE COUNT (BEAKER) (test 1.38 K/ L 1.18-3.74 djlg=592) MONOCYTES ABSOLUTE COUNT (BEAKER) (test 0.35 K/ L 0.24-0.36 fnhj=304) EOSINOPHILS ABSOLUTE COUNT (BEAKER) (test 0.06 K/ L 0.04-0.36 luyu=529) BASOPHILS ABSOLUTE COUNT (BEAKER) (test 0.05 K/ L 0.01-0.08 uutr=830) IMMATURE GRANULOCYTES-RELATIVE PERCENT (BEAKER) 0 % 0-1 (test qcgk=6650) [id number] 10:34:00 Test Item Value Reference Range Comments PHOSPHORUS (BEAKER) (test tlmg=093) 1.8 mg/dL 2.3-4.7 [id number] 10:34:00 Test Item Value Reference Range Comments MAGNESIUM (BEAKER) (test qlca=709) 2.4 mg/dL 1.6-2.6 HEPATIC FUNCTION [id number] 10:34:00 Test Item Value Reference Range Comments TOTAL PROTEIN (BEAKER) (test usxf=229) 6.8 gm/dL 6.0-8.3 ALBUMIN (BEAKER) (test mxnd=6946) 4.2 g/dL 3.5-5.0 BILIRUBIN TOTAL (BEAKER) (test iqkh=207) 1.3 mg/dL 0.2-1.2 BILIRUBIN DIRECT (BEAKER) (test xgrf=060) 0.7 mg/dL 0.1-0.5 ALKALINE PHOSPHATASE (BEAKER) (test kwfh=631) 35 U/L 40-150 AST (SGOT) (BEAKER) (test ekkq=414) 13 U/L 5-34 ALT (SGPT) (BEAKER) (test ajhz=249) 6 U/L 6-55 CREATINE KINASE (CK)2019-02-13 10:34:00 Test Item Value Reference Range Comments CREATINE KINASE TOTAL (BEAKER) (test qkcn=108) 37 U/L 29-200 ANTI-NUCLEAR ANTIBODY (CARROL)2019-02-13 10:25:00 Test Item Value Reference Range Comments ANTI-NUCLEAR ANTIBODY (CARROL) (BEAKER) (test Positive Negative qcdv=674) Test performed by IFA method.CARROL TITER AND [id number] 10:25:00 Test Item Value Reference Range Comments CARROL TITER (BEAKER) (test ftrd=8643) :160 CARROL PATTERN (BEAKER) (test ynie=8066) Homogeneous CALCIUM, [id number] 10:17:00 Test Item Value Reference Range Comments CALCIUM IONIZED (BEAKER) (test cjte=214) 1.03 mmol/L 1.12-1.27 PH, BLOOD (BEAKER) (test cpak=9866) 7.51 BODY FLUID CULTURE + GRAM [id number] 12:36:00 Test Item Value Reference Range Comments CULTURE (BEAKER) (test vrxq=8140) No growth GRAM STAIN RESULT (BEAKER) (test <1+ White blood cells seen thjx=7026) GRAM STAIN RESULT (BEAKER) (test No organisms seen vcis=96042) [id number] 09:07:00 Test Item Value Reference Range Comments PHOSPHORUS (BEAKER) (test wwyb=362) 2.2 mg/dL 2.3-4.7 [id number] 09:07:00 Test Item Value Reference Range Comments MAGNESIUM (BEAKER) (test xtxe=367) 2.4 mg/dL 1.6-2.6 COMPREHENSIVE METABOLIC [id number] 09:07:00 Test Item Value Reference Range Comments TOTAL PROTEIN (BEAKER) 6.2 gm/dL 6.0-8.3 (test hbab=537) ALBUMIN (BEAKER) (test 3.7 g/dL 3.5-5.0 mlfr=8499) ALKALINE PHOSPHATASE 27 U/L 40-150 (BEAKER) (test knsj=521) BILIRUBIN TOTAL (BEAKER) 0.8 mg/dL 0.2-1.2 (test ftln=834) SODIUM (BEAKER) (test 142 meq/L 136-145 pqcr=891) POTASSIUM (BEAKER) (test 3.4 meq/L 3.5-5.1 nmss=894) CHLORIDE (BEAKER) (test 111 meq/L 98-107 fmfy=389) CO2 (BEAKER) (test 20 meq/L 22-29 fgnw=878) BLOOD UREA NITROGEN 10 mg/dL 7-21 (BEAKER) (test bpxy=498) CREATININE (BEAKER) (test 2.89 mg/dL 0.57-1.25 yccn=317) GLUCOSE RANDOM (BEAKER) 98 mg/dL 70-105 (test gcsq=880) CALCIUM (BEAKER) (test 8.5 mg/dL 8.4-10.2 rsrk=719) AST (SGOT) (BEAKER) (test 14 U/L 5-34 szlj=636) ALT (SGPT) (BEAKER) (test 6 U/L 6-55 wgtj=770) EGFR (BEAKER) (test 20 mL/min/1.73 sq m ESTIMATED GFR IS NOT svod=3369) ACCURATE CREATININE CLEARANCE IN PREDICTING GLOMERULAR FILTRATION RATE. ESTIMATED GFR IS NOT APPLICABLE FOR DIALYSIS PATIENTS. CALCIUM, [id number] 07:28:00 Test Item Value Reference Range Comments CALCIUM IONIZED (BEAKER) (test ozmp=268) 1.02 mmol/L 1.12-1.27 PH, BLOOD (BEAKER) (test lkvp=3309) 7.46 CBC W/PLT COUNT & AUTO [id number] 06:55:00 Test Item Value Reference Range Comments WHITE BLOOD CELL COUNT (BEAKER) (test cfye=003) 5.8 K/ L 3.5-10.5 RED BLOOD CELL COUNT (BEAKER) (test mwdg=970) 2.33 M/ L 3.93-5.22 HEMOGLOBIN (BEAKER) (test uqiu=659) 7.5 GM/DL 11.2-15.7 HEMATOCRIT (BEAKER) (test olni=012) 23.5 % 34.1-44.9 MEAN CORPUSCULAR VOLUME (BEAKER) (test pbqb=635) 100.9 fL 79.4-94.8 MEAN CORPUSCULAR HEMOGLOBIN (BEAKER) (test 32.2 pg 25.6-32.2 zqax=453) MEAN CORPUSCULAR HEMOGLOBIN CONC (BEAKER) (test 31.9 GM/DL 32.2-35.5 ahdl=602) RED CELL DISTRIBUTION WIDTH (BEAKER) (test 13.7 % 11.7-14.4 uxgu=831) PLATELET COUNT (BEAKER) (test pygj=106) 183 K/CU MM 150-450 MEAN PLATELET VOLUME (BEAKER) (test pwic=849) 8.3 fL 9.4-12.3 NUCLEATED RED BLOOD CELLS (BEAKER) (test 0 /100 WBC 0-0 kaqz=846) NEUTROPHILS RELATIVE PERCENT (BEAKER) (test 71 % vsgv=210) LYMPHOCYTES RELATIVE PERCENT (BEAKER) (test 21 % mmfc=234) MONOCYTES RELATIVE PERCENT (BEAKER) (test 6 % ffxm=226) EOSINOPHILS RELATIVE PERCENT (BEAKER) (test 2 % bhvg=141) BASOPHILS RELATIVE PERCENT (BEAKER) (test 1 % rkzs=491) NEUTROPHILS ABSOLUTE COUNT (BEAKER) (test 4.13 K/ L 1.56-6.13 inlb=655) LYMPHOCYTES ABSOLUTE COUNT (BEAKER) (test 1.20 K/ L 1.18-3.74 ezme=213) MONOCYTES ABSOLUTE COUNT (BEAKER) (test 0.34 K/ L 0.24-0.36 hsza=689) EOSINOPHILS ABSOLUTE COUNT (BEAKER) (test 0.09 K/ L 0.04-0.36 lhhd=668) BASOPHILS ABSOLUTE COUNT (BEAKER) (test 0.05 K/ L 0.01-0.08 sbbk=035) IMMATURE GRANULOCYTES-RELATIVE PERCENT (BEAKER) 0 % 0-1 (test rdnf=3040) B-TYPE NATRIURETIC FACTOR (BNP)2019-02-11 17:28:00 Test Item Value Reference Range Comments B-TYPE NATRIURETIC PEPTIDE (BEAKER) (test yksy=665) 61 pg/mL 0-100 CBC W/PLT COUNT & AUTO [id number] 17:10:00 Test Item Value Reference Range Comments WHITE BLOOD CELL COUNT (BEAKER) (test xofr=659) 5.8 K/ L 3.5-10.5 RED BLOOD CELL COUNT (BEAKER) (test lltj=887) 2.27 M/ L 3.93-5.22 HEMOGLOBIN (BEAKER) (test mpmq=217) 7.3 GM/DL 11.2-15.7 HEMATOCRIT (BEAKER) (test ttvi=778) 23.4 % 34.1-44.9 MEAN CORPUSCULAR VOLUME (BEAKER) (test bbrz=533) 103.1 fL 79.4-94.8 MEAN CORPUSCULAR HEMOGLOBIN (BEAKER) (test 32.2 pg 25.6-32.2 azoy=635) MEAN CORPUSCULAR HEMOGLOBIN CONC (BEAKER) (test 31.2 GM/DL 32.2-35.5 luey=103) RED CELL DISTRIBUTION WIDTH (BEAKER) (test 14.0 % 11.7-14.4 qhte=248) PLATELET COUNT (BEAKER) (test owdy=630) 204 K/CU MM 150-450 MEAN PLATELET VOLUME (BEAKER) (test ghtq=234) 9.8 fL 9.4-12.3 NUCLEATED RED BLOOD CELLS (BEAKER) (test 0 /100 WBC 0-0 kqvz=874) NEUTROPHILS RELATIVE PERCENT (BEAKER) (test 69 % tqob=554) LYMPHOCYTES RELATIVE PERCENT (BEAKER) (test 21 % gtqk=078) MONOCYTES RELATIVE PERCENT (BEAKER) (test 6 % hjdn=983) EOSINOPHILS RELATIVE PERCENT (BEAKER) (test 2 % hnvb=279) BASOPHILS RELATIVE PERCENT (BEAKER) (test 1 % dsgo=405) NEUTROPHILS ABSOLUTE COUNT (BEAKER) (test 4.04 K/ L 1.56-6.13 fqtj=031) LYMPHOCYTES ABSOLUTE COUNT (BEAKER) (test 1.24 K/ L 1.18-3.74 vznf=463) MONOCYTES ABSOLUTE COUNT (BEAKER) (test 0.36 K/ L 0.24-0.36 yacv=237) EOSINOPHILS ABSOLUTE COUNT (BEAKER) (test 0.11 K/ L 0.04-0.36 sjjk=660) BASOPHILS ABSOLUTE COUNT (BEAKER) (test 0.05 K/ L 0.01-0.08 jjzn=923) IMMATURE GRANULOCYTES-RELATIVE PERCENT (BEAKER) 1 % 0-1 (test vyyi=1800) CT, [id number] 16:19:00FINAL REPORT TECHNIQUE: CT of the abdomen [...] Verified Date/Time: 02/11/2019 16: 19:52 Reading Location: [facility] B1 C013Y CT Body [facility] METABOLIC [id number] 05:02:00 Test Item Value Reference Range Comments SODIUM (BEAKER) (test 142 meq/L 136-145 ioxb=804) POTASSIUM (BEAKER) (test 3.7 meq/L 3.5-5.1 vzqp=625) CHLORIDE (BEAKER) (test 113 meq/L 98-107 mhzf=695) CO2 (BEAKER) (test 18 meq/L 22-29 cifn=430) BLOOD UREA NITROGEN 13 mg/dL 7-21 (BEAKER) (test efrv=365) CREATININE (BEAKER) (test 2.15 mg/dL 0.57-1.25 mcoh=014) GLUCOSE RANDOM (BEAKER) 115 mg/dL 70-105 (test uvvn=258) CALCIUM (BEAKER) (test 8.1 mg/dL 8.4-10.2 ohax=961) EGFR (BEAKER) (test 28 mL/min/1.73 sq m ESTIMATED GFR IS NOT dobr=1382) ACCURATE CREATININE CLEARANCE IN PREDICTING GLOMERULAR FILTRATION RATE. ESTIMATED GFR IS NOT APPLICABLE FOR DIALYSIS PATIENTS. HEPATIC FUNCTION [id number] 04:31:00 Test Item Value Reference Range Comments TOTAL PROTEIN (BEAKER) (test lvcn=480) 5.9 gm/dL 6.0-8.3 ALBUMIN (BEAKER) (test wgkn=6122) 3.0 g/dL 3.5-5.0 BILIRUBIN TOTAL (BEAKER) (test lafw=964) 0.7 mg/dL 0.2-1.2 BILIRUBIN DIRECT (BEAKER) (test xsjn=289) 0.4 mg/dL 0.1-0.5 ALKALINE PHOSPHATASE (BEAKER) (test fqab=921) 34 U/L 40-150 AST (SGOT) (BEAKER) (test hgho=057) 17 U/L 5-34 ALT (SGPT) (BEAKER) (test jiko=491) 9 U/L 6-55 [id number] 04:30:00 Test Item Value Reference Range Comments PHOSPHORUS (BEAKER) (test pxrg=116) 2.5 mg/dL 2.3-4.7 [id number] 04:30:00 Test Item Value Reference Range Comments MAGNESIUM (BEAKER) (test ahdr=168) 1.5 mg/dL 1.6-2.6 CBC W/PLT COUNT & AUTO [id number] 04:04:00 Test Item Value Reference Range Comments WHITE BLOOD CELL COUNT (BEAKER) (test bpdh=978) 6.0 K/ L 3.5-10.5 RED BLOOD CELL COUNT (BEAKER) (test zxlr=755) 2.64 M/ L 3.93-5.22 HEMOGLOBIN (BEAKER) (test flsp=122) 8.3 GM/DL 11.2-15.7 HEMATOCRIT (BEAKER) (test ctec=354) 27.7 % 34.1-44.9 MEAN CORPUSCULAR VOLUME (BEAKER) (test vefo=885) 104.9 fL 79.4-94.8 MEAN CORPUSCULAR HEMOGLOBIN (BEAKER) (test 31.4 pg 25.6-32.2 ocqn=354) MEAN CORPUSCULAR HEMOGLOBIN CONC (BEAKER) (test 30.0 GM/DL 32.2-35.5 rpvj=032) RED CELL DISTRIBUTION WIDTH (BEAKER) (test 14.1 % 11.7-14.4 ijjq=368) PLATELET COUNT (BEAKER) (test gffm=044) 198 K/CU MM 150-450 MEAN PLATELET VOLUME (BEAKER) (test ospf=204) 8.4 fL 9.4-12.3 NUCLEATED RED BLOOD CELLS (BEAKER) (test 0 /100 WBC 0-0 xpfq=513) NEUTROPHILS RELATIVE PERCENT (BEAKER) (test 66 % xisy=081) LYMPHOCYTES RELATIVE PERCENT (BEAKER) (test 25 % rdgz=799) MONOCYTES RELATIVE PERCENT (BEAKER) (test 6 % grww=429) EOSINOPHILS RELATIVE PERCENT (BEAKER) (test 2 % vtyk=045) BASOPHILS RELATIVE PERCENT (BEAKER) (test 1 % sghj=299) NEUTROPHILS ABSOLUTE COUNT (BEAKER) (test 3.90 K/ L 1.56-6.13 qzpq=203) LYMPHOCYTES ABSOLUTE COUNT (BEAKER) (test 1.50 K/ L 1.18-3.74 rsqy=915) MONOCYTES ABSOLUTE COUNT (BEAKER) (test 0.37 K/ L 0.24-0.36 qwoe=790) EOSINOPHILS ABSOLUTE COUNT (BEAKER) (test 0.11 K/ L 0.04-0.36 ufwy=984) BASOPHILS ABSOLUTE COUNT (BEAKER) (test 0.05 K/ L 0.01-0.08 ppbs=410) IMMATURE GRANULOCYTES-RELATIVE PERCENT (BEAKER) 1 % 0-1 (test wytm=8206) URINALYSIS W/ REFLEX URINE [id number] 21:08:00 Test Item Value Reference Range Comments COLOR (BEAKER) (test svil=503) Yellow CLARITY (BEAKER) (test ewlk=595) Hazy SPECIFIC GRAVITY UA (BEAKER) (test bwfp=388) 1.015 1.001-1.035 PH UA (BEAKER) (test kqxz=648) 5.5 5.0-8.0 PROTEIN UA (BEAKER) (test pcny=264) 20 mg/dL Negative GLUCOSE UA (BEAKER) (test dsbn=076) Negative Negative KETONES UA (BEAKER) (test rttn=944) Trace Negative BILIRUBIN UA (BEAKER) (test hnwx=389) Negative Negative BLOOD UA (BEAKER) (test pyxm=377) Negative Negative NITRITE UA (BEAKER) (test vjca=072) Negative Negative LEUKOCYTE ESTERASE UA (BEAKER) (test iyns=448) Large Negative UROBILINOGEN UA (BEAKER) (test uulv=529) 0.2 mg/dL 0.2-1.0 RBC UA (BEAKER) (test keoq=330) 1 /HPF WBC UA (BEAKER) (test dhdc=405) 10 /HPF SQUAMOUS EPITHELIAL (BEAKER) (test afuz=892) 3 /HPF HYALINE CASTS (BEAKER) (test adoc=465) 2 /LPF CRYSTALS, URINE (BEAKER) (test fjml=5985) Rare YEAST (BEAKER) (test pkgp=8963) Occasional SOURCE(BEAKER) (test qvzo=5673) HEPATITIS B SURFACE [id number] 20:13:00 Test Item Value Reference Range Comments HEPATITIS B SURFACE ANTIBODY (BEAKER) (test < mIU/mL <8.0 opgr=286) HEPATITIS A ANTIBODY, [id number] 20:13:00 Test Item Value Reference Range Comments HEPATITIS A IGG ANTIBODY (BEAKER) (test zvfz=6768) Reactive Nonreactive HEPATITIS B SURFACE [id number] 20:11:00 Test Item Value Reference Range Comments HEPATITIS B SURFACE ANTIGEN (2) (BEAKER) (test Nonreactive Nonreactive qinc=5259) HEPATITIS C [id number] 20:11:00 Test Item Value Reference Range Comments HEPATITIS C ANTIBODY (BEAKER) (test mzjt=019) Nonreactive Nonreactive U/S, ABDOMINAL, WITH [id number] 20:08:00Reason for exam:->evaluation for liver disease, other [...] MDReport Verified Date/Time: 02/09/2019 20:08:48 Reading Location: [facility] [id number] Consult Reading Room IMMUNOGLOBULIN G (IGG)2019-02-09 19:45:00 Test Item Value Reference Range Comments IMMUNOGLOBULIN G (IGG) (BEAKER) (test etni=727) 926 mg/dL 540-1,822 [id number] 19:13:00 Test Item Value Reference Range Comments FERRITIN (BEAKER) (test xjkh=046) 1896 ng/mL 5-275 BODY FLUID CELL COUNT WITH [id number] 19:01:00 Test Item Value Reference Range Comments APPEARANCE FLUID (BEAKER) (test jsos=054) Slightly Hazy Clear COLOR FLUID (BEAKER) (test bmdx=604) Yellow Colorless, Straw RBC FLUID (BEAKER) (test gurs=313) 200 /cu mm <=1 ADJUSTED WBC FLUID (BEAKER) (test pwbh=3655) 88 /cu mm <=5 LINING CELLS (BEAKER) (test tdfs=7232) 2 /cu mm <=1 NEUTROPHILS FLUID (BEAKER) (test bkvs=6210) 1 % LYMPHS FLUID (BEAKER) (test vgjh=898) 57 % MONO/MACROPHAGE FLUID (BEAKER) (test 40 % irhk=295) EOSINOPHILS FLUID (BEAKER) (test gshg=019) 2 % BASO FLUID (BEAKER) (test pxff=676) 0 % CONTAINER BODY FLUID (BEAKER) (test EDTA Tube bsdu=4386) IRON, TIBC, % SAT. (WITHOUT FERRITIN)2019-02-09 18:53:00 Test Item Value Reference Range Comments IRON (BEAKER) (test fneh=857) 23.0 ug/dL 40.0-160.0 TOTAL IRON BINDING CAPACITY (BEAKER) (test 94 ug/dL 250-450 njyl=472) IRON % SATURATION (2) (BEAKER) (test digq=2698) 24 % 20-55 GAMMA GLUTAMYL TRANSFERASE (GGT)2019-02-09 18:51:00 Test Item Value Reference Range Comments GAMMA GLUTAMYL TRANSFERASE 21 U/L 9-64 Specimen slightly hemolyzed (BEAKER) (test juxq=383) ALBUMIN, BODY [id number] 18:07:00 Test Item Value Reference Range Comments ALBUMIN FLUID (BEAKER) (test ukev=528) 2.3 gm/dL Reference Range: No Normals Assay performance has not been validated for this type of specimen.LACTATE DEHYDROGENASE (LDH), BODY [id number] 18:07:00 Test Item Value Reference Range Comments LACTATE DEHYDROGENASE FLUID (BEAKER) (test tiub=472) 288 U/L Absence of reference range indicates that normals have not been defined.Assay performance has not been validated for this type of specimen.RAD, CHEST, 1 VIEW , NON [id number] 17:55:00Reason for exam:->dyspneaShould this be performed at [...] MDReport Verified Date/Time: 02/09/2019 17:55:29 Reading Location: [facility] [id number] Consult Reading Room SODIUM, RANDOM [id number] 16:13:00 Test Item Value Reference Range Comments SODIUM URINE (BEAKER) (test afzt=426) < meq/L Reference Range: No NormalsCREATININE, RANDOM [id number] 16:11:00 Test Item Value Reference Range Comments CREATININE URINE (BEAKER) (test ediz=106) 177.2 mg/dL Reference Range: No NormalsUREA NITROGEN, RANDOM [id number] 16:11:00 Test Item Value Reference Range Comments UREA NITROGEN URINE (BEAKER) (test gozh=734) 557 mg/dL Reference Range: No [id number] 15:34:00 Test Item Value Reference Range Comments PROCALCITONIN (BEAKER) (test cwoq=8148) 0.12 ng/mL <0.05 SEPSIS RISK (ng/mL)Low: 0.05-0.50Intermediate: 0.51-2.00High: & gt;=2.01B-TYPE NATRIURETIC FACTOR (BNP)2019-02-09 15:28:00 Test Item Value Reference Range Comments B-TYPE NATRIURETIC PEPTIDE (BEAKER) (test eesm=091) 17 pg/mL 0-100 TROPONIN [id number] 15:27:00 Test Item Value Reference Range Comments TROPONIN I (BEAKER) (test qufc=018) < ng/mL 0.00-0.03 Troponin I (TnI) levels [...] acute neurological disease, and persistent tachyarrhythmia.HEPATIC FUNCTION [id number] 15:21: 00 Test Item Value Reference Range Comments TOTAL PROTEIN (BEAKER) (test rgne=903) 6.3 gm/dL 6.0-8.3 ALBUMIN (BEAKER) (test ojas=9846) 2.9 g/dL 3.5-5.0 BILIRUBIN TOTAL (BEAKER) (test bvwy=723) 0.9 mg/dL 0.2-1.2 BILIRUBIN DIRECT (BEAKER) (test ujey=572) 0.5 mg/dL 0.1-0.5 ALKALINE PHOSPHATASE (BEAKER) (test ouyj=308) 40 U/L 40-150 AST (SGOT) (BEAKER) (test rggk=670) 19 U/L 5-34 ALT (SGPT) (BEAKER) (test peif=911) 12 U/L 6-55 BASIC METABOLIC [id number] 15:21:00 Test Item Value Reference Range Comments SODIUM (BEAKER) (test 143 meq/L 136-145 rbyc=729) POTASSIUM (BEAKER) (test 3.3 meq/L 3.5-5.1 wejl=084) CHLORIDE (BEAKER) (test 112 meq/L 98-107 eeva=944) CO2 (BEAKER) (test 17 meq/L 22-29 wcty=230) BLOOD UREA NITROGEN 16 mg/dL 7-21 (BEAKER) (test ekbx=362) CREATININE (BEAKER) (test 1.92 mg/dL 0.57-1.25 iguv=209) GLUCOSE RANDOM (BEAKER) 111 mg/dL 70-105 (test euwn=125) CALCIUM (BEAKER) (test 8.6 mg/dL 8.4-10.2 pkhd=309) EGFR (BEAKER) (test 32 mL/min/1.73 sq m ESTIMATED GFR IS NOT mgge=1027) ACCURATE CREATININE CLEARANCE IN PREDICTING GLOMERULAR FILTRATION RATE. ESTIMATED GFR IS NOT APPLICABLE FOR DIALYSIS PATIENTS. PROTHROMBIN TIME/[id number] 15:17:00 Test Item Value Reference Range Comments PROTIME (BEAKER) (test dube=417) 16.0 seconds 11.7-14.7 INR (BEAKER) (test cvef=775) 1.3 <=5.9 RECOMMENDED COUMADIN/WARFARIN INR THERAPY RANGESSTANDARD DOSE: 2.0 - 3.0 Includes: PROPHYLAXIS forvenous thrombosis, systemic embolization; TREATMENT for venous thrombosis and/or pulmonary embolus.HIGH RISK: Target INR is 2.5-3.5 for patients with mechanical heart valves.[id number] 15:17:00 Test Item Value Reference Range Comments FIBRINOGEN LEVEL (BEAKER) (test sdvg=532) 718 mg/dl 225-434 CBC W/PLT COUNT & AUTO [id number] 15:15:00 Test Item Value Reference Range Comments WHITE BLOOD CELL COUNT (BEAKER) (test pdry=948) 7.0 K/ L 3.5-10.5 RED BLOOD CELL COUNT (BEAKER) (test jmnd=608) 2.80 M/ L 3.93-5.22 HEMOGLOBIN (BEAKER) (test btyf=446) 9.1 GM/DL 11.2-15.7 HEMATOCRIT (BEAKER) (test hclu=414) 28.5 % 34.1-44.9 MEAN CORPUSCULAR VOLUME (BEAKER) (test jymt=753) 101.8 fL 79.4-94.8 MEAN CORPUSCULAR HEMOGLOBIN (BEAKER) (test 32.5 pg 25.6-32.2 mjxi=316) MEAN CORPUSCULAR HEMOGLOBIN CONC (BEAKER) (test 31.9 GM/DL 32.2-35.5 ymkk=053) RED CELL DISTRIBUTION WIDTH (BEAKER) (test 13.8 % 11.7-14.4 ffev=694) PLATELET COUNT (BEAKER) (test zvwg=764) 212 K/CU MM 150-450 MEAN PLATELET VOLUME (BEAKER) (test tdwi=712) 9.2 fL 9.4-12.3 NUCLEATED RED BLOOD CELLS (BEAKER) (test 0 /100 WBC 0-0 wanp=500) NEUTROPHILS RELATIVE PERCENT (BEAKER) (test 70 % sftr=258) LYMPHOCYTES RELATIVE PERCENT (BEAKER) (test 22 % lnxq=328) MONOCYTES RELATIVE PERCENT (BEAKER) (test 5 % geku=710) EOSINOPHILS RELATIVE PERCENT (BEAKER) (test 1 % ugvp=115) BASOPHILS RELATIVE PERCENT (BEAKER) (test 1 % gnoo=194) NEUTROPHILS ABSOLUTE COUNT (BEAKER) (test 4.92 K/ L 1.56-6.13 ewva=133) LYMPHOCYTES ABSOLUTE COUNT (BEAKER) (test 1.58 K/ L 1.18-3.74 wrar=586) MONOCYTES ABSOLUTE COUNT (BEAKER) (test 0.35 K/ L 0.24-0.36 kiva=854) EOSINOPHILS ABSOLUTE COUNT (BEAKER) (test 0.09 K/ L 0.04-0.36 tobd=078) BASOPHILS ABSOLUTE COUNT (BEAKER) (test 0.07 K/ L 0.01-0.08 gvwd=011) IMMATURE GRANULOCYTES-RELATIVE PERCENT (BEAKER) 0 % 0-1 (test ooir=5309) LACTIC ACID, [id number] 15:15:00 Test Item Value Reference Range Comments LACTATE BLOOD VENOUS (2) 1.3 mmol/L 0.5-2.2 Specimen moderately hemolyzed (BEAKER) (test amlu=6802) [id number] 15:14:00 Test Item Value Reference Range Comments AMMONIA (BEAKER) (test 17 mol/L 18-72 Specimen moderately hemolyzed gtik=795) [id number] 14:17:00Medical Cytology Report Case: [id number] Authorizing Provider: Mary Elizondo MD Collected: 02/01/2019 1654 Ordering Location: [address] Received: 02/02/2019 0857 Service Pathologist: Cherri [...] - HER 2 OVER-EXPRESSION: NEGATIVE (SCORE: 0)PB: [id number] X3, 78124 CAP REGULATION: FIXATION TIME FOR BIOMARKERS ASSESSMENTCollection [...] and Ki67 were assessed using clones SP1 ([place] ), 1294 ([place]), 4B5 (FDA Approved [place] [employer]) and 30-9 ([place]) respectively. Control Slides Examined: In-house known ER, [...] 2002). Immunohistochemistry technical testing was performed at [facility], Pathology Laboratory where it was developed [...] (SEE COMMENT) Signing Pathologist Direct Phone Line: [phone] signed by Cherri Covington MD on 02/07/2019 at 4:06 PMThe peritoneal fluid shows few atypical cells,scattered mostly singly. These cells are positive for MOC-31, [place] -EP4 and MAYUR-3. GCDFP is negative.Calretinin and WT-1 highlight mesothelial cells. The immunoprofile is compatible with patient's history of breast primaryAn addendm report will follow with the results of the biomarkers.62581, 62430; 77593; 87031 x 5Ascites, history of of breast cancer (dx 2010 s/p chemoXRT, lumpectomy)PERITONEAL PGFWS6815 mls yellow; 4 cytospins, cell blockCollected: [id number]: [id number] interpretation of this case included the use of immunohistochemistry or special stains. Calretinin; WT- 1; MAYUR-3; GCDFP; MOC-31 AND IRWIN-JG2Ngtldcxgbvdnjegwogyi technical testing was performed at [facility], Pathology Laboratory where it was [...] qualified to perform high complexity clinical laboratory testing.[facility], Department of Pathology, [address] [place] [id number], [facility], [facility] of [facility], [address] [place] [address], [facility], [address] [place] [address], Tel STOOL CULTURE + SHIGA [id number] 00:23:00 Test Item Value Reference Range Comments CULTURE (BEAKER) (test No Salmonella, Shigella or etpr=8606) Campylobacter isolated SHIGA TOXIN [id number] 10:46:00 Test Item Value Reference Range Comments SHIGA TOXIN 1 (BEAKER) (test jqkz=6468) Not detected Not detected SHIGA TOXIN 2 (BEAKER) (test ddbx=9056) Not detected Not detected Resubmit new specimen if clinically indicated.BODY FLUID CULTURE + GRAM [id number] 08:40:00 Test Item Value Reference Range Comments CULTURE (BEAKER) (test grix=0006) No growth GRAM STAIN RESULT (BEAKER) (test 1+ WBCs gixh=8430) GRAM STAIN RESULT (BEAKER) (test No organisms seen pgvk=15284) STOOL PATH [id number] 11:26:00 Test Item Value Reference Range Comments PATHOGEN EXAM CHARGED (BEAKER) (test orak=2317) Done C. DIFFICILE GDH [id number] 17:05:00 Test Item Value Reference Range Comments CDT TOXIN (test Negative Negative enzb=[id number]) CDT GDH ANTIGEN (test Negative Negative No indication of Clostridium gnod=[id number]) difficile infection and no colonization. Discontinue enteric isolation and therapy. Testing performed by [employer] Rapid Cassette Assay. For GDH, published sensitivity of the assay is 98.7% compared to cytotoxicity testing. For Toxin AB, published sensitivity is 87.8% and specificity 99.4% compared to cytotoxicity testing.Verification of kit performance was done by the [facility] Microbiology Lab prior to clinical use.[id number] 13:10:00 Test Item Value Reference Range Comments MAGNESIUM (BEAKER) (test xpql=999) 1.9 mg/dL 1.6-2.6 BASIC METABOLIC [id number] 13:10:00 Test Item Value Reference Range Comments SODIUM (BEAKER) (test 139 meq/L 136-145 ykzs=648) POTASSIUM (BEAKER) (test 4.0 meq/L 3.5-5.1 suga=471) CHLORIDE (BEAKER) (test 110 meq/L 98-107 puiq=496) CO2 (BEAKER) (test 21 meq/L 22-29 oulk=418) BLOOD UREA NITROGEN 21 mg/dL 7-21 (BEAKER) (test gyht=863) CREATININE (BEAKER) (test 1.34 mg/dL 0.57-1.25 uipf=825) GLUCOSE RANDOM (BEAKER) 112 mg/dL 70-105 (test wsrn=690) CALCIUM (BEAKER) (test 8.5 mg/dL 8.4-10.2 slev=046) EGFR (BEAKER) (test 49 mL/min/1.73 sq m ESTIMATED GFR IS NOT kqwj=4930) ACCURATE CREATININE CLEARANCE IN PREDICTING GLOMERULAR FILTRATION RATE. ESTIMATED GFR IS NOT APPLICABLE FOR DIALYSIS PATIENTS. HEPATIC FUNCTION [id number] 13:10:00 Test Item Value Reference Range Comments TOTAL PROTEIN (BEAKER) (test cbpz=362) 6.2 gm/dL 6.0-8.3 ALBUMIN (BEAKER) (test udas=0771) 2.7 g/dL 3.5-5.0 BILIRUBIN TOTAL (BEAKER) (test cved=544) 0.5 mg/dL 0.2-1.2 BILIRUBIN DIRECT (BEAKER) (test ymtx=283) 0.2 mg/dL 0.1-0.5 ALKALINE PHOSPHATASE (BEAKER) (test eygs=102) 36 U/L 40-150 AST (SGOT) (BEAKER) (test ftqn=541) 16 U/L 5-34 ALT (SGPT) (BEAKER) (test ifls=125) 10 U/L 6-55 CBC W/PLT COUNT & AUTO [id number] 12:41:00 Test Item Value Reference Range Comments WHITE BLOOD CELL COUNT (BEAKER) (test tcho=785) 6.6 K/ L 3.5-10.5 RED BLOOD CELL COUNT (BEAKER) (test jmfm=385) 2.65 M/ L 3.93-5.22 HEMOGLOBIN (BEAKER) (test kepi=752) 8.6 GM/DL 11.2-15.7 HEMATOCRIT (BEAKER) (test ziqh=459) 28.1 % 34.1-44.9 MEAN CORPUSCULAR VOLUME (BEAKER) (test ebtc=469) 106.0 fL 79.4-94.8 MEAN CORPUSCULAR HEMOGLOBIN (BEAKER) (test 32.5 pg 25.6-32.2 kjyl=627) MEAN CORPUSCULAR HEMOGLOBIN CONC (BEAKER) (test 30.6 GM/DL 32.2-35.5 mxsy=726) RED CELL DISTRIBUTION WIDTH (BEAKER) (test 13.6 % 11.7-14.4 fley=397) PLATELET COUNT (BEAKER) (test jmnf=793) 285 K/CU MM 150-450 MEAN PLATELET VOLUME (BEAKER) (test nkwn=397) 8.3 fL 9.4-12.3 NUCLEATED RED BLOOD CELLS (BEAKER) (test 0 /100 WBC 0-0 dhyj=048) NEUTROPHILS RELATIVE PERCENT (BEAKER) (test 71 % flkm=988) LYMPHOCYTES RELATIVE PERCENT (BEAKER) (test 22 % mmuf=438) MONOCYTES RELATIVE PERCENT (BEAKER) (test 6 % bjkt=836) EOSINOPHILS RELATIVE PERCENT (BEAKER) (test 0 % szmb=616) BASOPHILS RELATIVE PERCENT (BEAKER) (test 1 % ewpn=925) NEUTROPHILS ABSOLUTE COUNT (BEAKER) (test 4.68 K/ L 1.56-6.13 aqmj=533) LYMPHOCYTES ABSOLUTE COUNT (BEAKER) (test 1.43 K/ L 1.18-3.74 ybop=448) MONOCYTES ABSOLUTE COUNT (BEAKER) (test 0.39 K/ L 0.24-0.36 ymdj=519) EOSINOPHILS ABSOLUTE COUNT (BEAKER) (test 0.02 K/ L 0.04-0.36 mxxw=002) BASOPHILS ABSOLUTE COUNT (BEAKER) (test 0.03 K/ L 0.01-0.08 ykjd=660) IMMATURE GRANULOCYTES-RELATIVE PERCENT (BEAKER) 1 % 0-1 (test xyyk=2984) U/S, ABDOMINAL, WITH [id number] 10:51:00Reason for exam:->ascites, evaluate for PVTFINAL REPORT [...] Vahid Espinozaeport Verified Date/Time: 10:51:26 Reading Location: [address] Ultrasound Reading Room BODY FLUID CELL COUNT WITH [id number] 19:54:00 Test Item Value Reference Range Comments APPEARANCE FLUID (BEAKER) (test xsoa=548) Slightly Hazy Clear COLOR FLUID (BEAKER) (test nfyf=878) Yellow Colorless, Straw RBC FLUID (BEAKER) (test zucx=054) 262 /cu mm <=1 ADJUSTED WBC FLUID (BEAKER) (test kxqg=4710) 93 /cu mm <=5 LINING CELLS (BEAKER) (test lltg=2226) 4 /cu mm <=1 NEUTROPHILS FLUID (BEAKER) (test gxlx=9335) 1 % LYMPHS FLUID (BEAKER) (test lodk=943) 14 % MONO/MACROPHAGE FLUID (BEAKER) (test 85 % bevn=714) EOSINOPHILS FLUID (BEAKER) (test lmmj=379) 0 % BASO FLUID (BEAKER) (test defg=532) 0 % CONTAINER BODY FLUID (BEAKER) (test EDTA Tube zuqe=9134) ALBUMIN, BODY [id number] 18:05:00 Test Item Value Reference Range Comments ALBUMIN FLUID (BEAKER) (test xmca=733) 2.6 gm/dL Reference Range: No Normals Assay performance has not been validated for this type of specimen.PROTEIN, BODY [id number] 18:05:00 Test Item Value Reference Range Comments PROTEIN FLUID (BEAKER) (test xvks=148) 4.6 g/dL Absence of reference range indicates that normals have not been defined.Assay performance has not been validated for this type of specimen.U/S, [id number] 17:07:00Reason for exam:->ascites of unclear etiology , [...] MDReport Verified Date/Time: 02/01/2019 17:07:23 Reading Location: [place] [id number] Ultrasound Reading Room [id number] 12:56:00 Test Item Value Reference Range Comments MAGNESIUM (BEAKER) (test abes=398) 2.2 mg/dL 1.6-2.6 BASIC METABOLIC [id number] 12:56:00 Test Item Value Reference Range Comments SODIUM (BEAKER) (test 142 meq/L 136-145 weuv=859) POTASSIUM (BEAKER) (test 4.3 meq/L 3.5-5.1 ilrv=986) CHLORIDE (BEAKER) (test 108 meq/L 98-107 tytp=146) CO2 (BEAKER) (test 24 meq/L 22-29 oyfx=047) BLOOD UREA NITROGEN 22 mg/dL 7-21 (BEAKER) (test mlcz=085) CREATININE (BEAKER) (test 1.72 mg/dL 0.57-1.25 kfhw=172) GLUCOSE RANDOM (BEAKER) 139 mg/dL 70-105 (test qabe=198) CALCIUM (BEAKER) (test 9.1 mg/dL 8.4-10.2 rluc=828) EGFR (BEAKER) (test 36 mL/min/1.73 sq m ESTIMATED GFR IS NOT djly=7873) ACCURATE CREATININE CLEARANCE IN PREDICTING GLOMERULAR FILTRATION RATE. ESTIMATED GFR IS NOT APPLICABLE FOR DIALYSIS PATIENTS. HEPATIC FUNCTION [id number] 12:56:00 Test Item Value Reference Range Comments TOTAL PROTEIN (BEAKER) (test cpzb=490) 7.0 gm/dL 6.0-8.3 ALBUMIN (BEAKER) (test bihn=1367) 3.1 g/dL 3.5-5.0 BILIRUBIN TOTAL (BEAKER) (test klez=680) 0.6 mg/dL 0.2-1.2 BILIRUBIN DIRECT (BEAKER) (test ejnr=445) 0.4 mg/dL 0.1-0.5 ALKALINE PHOSPHATASE (BEAKER) (test yrii=855) 42 U/L 40-150 AST (SGOT) (BEAKER) (test cicp=661) 15 U/L 5-34 ALT (SGPT) (BEAKER) (test vmks=823) 10 U/L 6-55 PROTHROMBIN [id number] 12:51:00 Test Item Value Reference Range Comments PROTIME (BEAKER) (test dtmd=408) 16.5 seconds 11.7-14.7 INR (BEAKER) (test jmqt=273) 1.3 <=5.9 RECOMMENDED COUMADIN/WARFARIN INR THERAPY RANGESSTANDARD DOSE: 2.0 - 3.0 Includes: PROPHYLAXIS forvenous thrombosis, systemic embolization; TREATMENT for venous thrombosis and/or pulmonary embolus.HIGH RISK: Target INR is 2.5-3.5 for patients with mechanical heart valves.CBC (HEMOGRAM ONLY)2019-02-01 12:38:00 Test Item Value Reference Range Comments WHITE BLOOD CELL COUNT (BEAKER) (test ccef=095) 9.6 K/ L 3.5-10.5 RED BLOOD CELL COUNT (BEAKER) (test mmsl=245) 2.77 M/ L 3.93-5.22 HEMOGLOBIN (BEAKER) (test kbfx=893) 9.1 GM/DL 11.2-15.7 HEMATOCRIT (BEAKER) (test zryg=324) 28.9 % 34.1-44.9 MEAN CORPUSCULAR VOLUME (BEAKER) (test tkoq=672) 104.3 fL 79.4-94.8 MEAN CORPUSCULAR HEMOGLOBIN (BEAKER) (test 32.9 pg 25.6-32.2 haxl=935) MEAN CORPUSCULAR HEMOGLOBIN CONC (BEAKER) (test 31.5 GM/DL 32.2-35.5 cnim=831) RED CELL DISTRIBUTION WIDTH (BEAKER) (test 13.7 % 11.7-14.4 fitr=098) PLATELET COUNT (BEAKER) (test fsci=325) 318 K/CU MM 150-450 MEAN PLATELET VOLUME (BEAKER) (test aapj=827) 8.3 fL 9.4-12.3 NUCLEATED RED BLOOD CELLS (BEAKER) (test 0 /100 WBC 0-0 ppfp=554)
[2020-01-01 08:30] VITALS: BP 123/77; TEMP 97.5; O2SAT 99; BMI 30.4
[2020-01-01] MEDS ORDERED: ALBUMIN HUMAN 25% 200 ML IV ONE (10:39)
[2020-01-01] MEDS ORDERED: ALBUMIN HUMAN 25% 100 ML IV ONE (10:59)
--- NOTE | 2020-01-01 11:25 | RAD REPORT ---
EXAM DESCRIPTION: US - Paracentesis Proc Guidance - 01/01/2020 10:13 am CLINICAL HISTORY: Liver disease with ascites FINDINGS: The risks, benefits and alternatives to the procedure were explained to the patient and in formed consent obtained. The skin and subcutaneous tissues were anesthetized with Lidocaine. Under sonographic guidance an 8 F rench catheter was placed into the right lower quadrant. 5 liters yellow fluid removed The patient experienced no immediate complication. IMPRESSION: Paracentesis
== END 2020-01-01 11:40 | disposition home or self-care (01) ==
LOC: DS 06:47
PROVIDERS: ATTEND Internal Medicine Gastroenterology
DX: R18.8 Other ascites (principal); K74.60 Unspecified cirrhosis of liver
CPT/HCPCS: 96365; 49083; P9047 ×2

== ENCOUNTER 2020-01-08 10:01 | Emergency (ER) | payer OTHER ==
--- OUTSIDE RECORDS SUMMARY | 2020-01-08 10:15 | XMS REPORT ---
:1955 [facility] [address] [place] [address] Care Team Providers Name Role Phone DANIELLE [...] Comments WHITE BLOOD CELL COUNT (BEAKER) (test wprd=755) 5.1 K/ L 3.5-10.5 RED BLOOD CELL COUNT (BEAKER) (test ykaw=307) 2.77 M/ L 3.93-5.22 HEMOGLOBIN (BEAKER) (test aoea=866) 8.4 GM/DL 11.2-15.7 HEMATOCRIT (BEAKER) (test uyhy=077) 26.7 % 34.1-44.9 MEAN CORPUSCULAR VOLUME (BEAKER) (test kjlj=767) 96.4 fL 79.4-94.8 MEAN CORPUSCULAR HEMOGLOBIN (BEAKER) (test cyro=874) 30.3 pg 25.6-32.2 MEAN CORPUSCULAR HEMOGLOBIN CONC (BEAKER) (test opkb=936) 31.5 GM/DL 32.2- 35.5 RED CELL DISTRIBUTION WIDTH (BEAKER) (test obfm=132) 15.5 % 11.7-14.4 PLATELET COUNT (BEAKER) (test exsm=573) 179 K/CU MM 150-450 MEAN PLATELET VOLUME (BEAKER) (test nocz=171) 10.2 fL 9.4-12.3 NUCLEATED RED BLOOD CELLS (BEAKER) (test uhzd=717) 0 /100 WBC 0-0 (CELLAVISION MANUAL DIFF)2019-02-20 12:08:00 Test Item Value Reference Range Comments NEUTROPHILS - REL (CELLAVISION)(BEAKER) (test 86 % bprt=3911) LYMPHOCYTES - REL (CELLAVISION)(BEAKER) (test 7 % pqrb=2267) MONOCYTES - REL (CELLAVISION)(BEAKER) (test 1 % pibh=4339) METAMYELOCYTES - REL (CELLAVISION)(BEAKER) (test 3 % 0-0 qigt=4251) BANDS - REL (CELLAVISION)(BEAKER) (test 3 % 0-10 sbqq=1941) NEUTROPHILS - ABS (CELLAVISION)(BEAKER) (test 4.39 K/ul 1.56-6.13 nxqt=7062) LYMPHOCYTES - ABS (CELLAVISION)(BEAKER) (test 0.36 K/ul 1.18-3.74 qodv=2129) MONOCYTES - ABS (CELLAVISION)(BEAKER) (test 0.05 K/uL 0.24-0.36 fshm=6225) METAMYELOCYTES - ABS (CELLAVISION)(BEAKER) (test 0.15 K/uL 0.00-0.00 pbkk=9399) BANDS - ABS (CELLAVISION)(BEAKER) (test 0.15 K/uL 0.00-0.80 etdc=3914) TOTAL COUNTED (BEAKER) (test jzhi=9963) 100 SMUDGE CELLS (BEAKER) (test hifm=9054) Present LARGE PLT(BEAKER) (test ierh=5228) Present ANISOCYTOSIS (BEAKER) (test thqi=452) 1+ few POIKILOCYTES (BEAKER) (test eeux=127) 1+ few SCHISTOCYTES (BEAKER) (test vrlf=157) 1+ few ELLIPTOCYTES (BEAKER) (test xbmc=791) 2+ moderate VIDHI CELLS (BEAKER) (test qepk=669) 2+ moderate ARTIFACT (CELLAVISION)(BEAKER) (test rifd=8490) Present PLATELET CONCENTRATION (CELLAVISION)(BEAKER) Adequate (test wncj=8758) Received comment: User comments: Slide comments: WBC: SEGMENTED WITH TOXIC GRANULATION PRESENTBASIC METABOLIC [id number] 07:54:00 Test Item Value Reference Range Comments SODIUM (BEAKER) (test 140 meq/L 136-145 nyqd=030) POTASSIUM (BEAKER) (test 3.4 meq/L 3.5-5.1 ngdm=558) CHLORIDE (BEAKER) (test 107 meq/L 98-107 okby=772) CO2 (BEAKER) (test 26 meq/L 22-29 lqeo=779) BLOOD UREA NITROGEN 14 mg/dL 7-21 (BEAKER) (test cotq=018) CREATININE (BEAKER) (test 1.71 mg/dL 0.57-1.25 uqwc=468) GLUCOSE RANDOM (BEAKER) 104 mg/dL 70-105 (test uysq=939) CALCIUM (BEAKER) (test 7.8 mg/dL 8.4-10.2 uewn=970) EGFR (BEAKER) (test 37 mL/min/1.73 sq m ESTIMATED GFR IS NOT twub=5192) ACCURATE CREATININE CLEARANCE IN PREDICTING GLOMERULAR FILTRATION RATE. ESTIMATED GFR IS NOT APPLICABLE FOR DIALYSIS PATIENTS. [id number] 07:48:00 Test Item Value Reference Range Comments PHOSPHORUS (BEAKER) (test ofgo=439) 1.9 mg/dL 2.3-4.7 [id number] 07:48:00 Test Item Value Reference Range Comments MAGNESIUM (BEAKER) (test afne=449) 1.5 mg/dL 1.6-2.6 HEPATIC FUNCTION [id number] 07:48:00 Test Item Value Reference Range Comments TOTAL PROTEIN (BEAKER) (test tjyh=392) 5.4 gm/dL 6.0-8.3 ALBUMIN (BEAKER) (test otjc=1672) 2.9 g/dL 3.5-5.0 BILIRUBIN TOTAL (BEAKER) (test indj=956) 1.0 mg/dL 0.2-1.2 BILIRUBIN DIRECT (BEAKER) (test lfmp=563) 0.6 mg/dL 0.1-0.5 ALKALINE PHOSPHATASE (BEAKER) (test bnbh=399) 47 U/L 40-150 AST (SGOT) (BEAKER) (test buox=794) 44 U/L 5-34 ALT (SGPT) (BEAKER) (test wakp=782) 22 U/L 6-55 CREATINE KINASE (CK)2019-02-20 07:48:00 Test Item Value Reference Range Comments CREATINE KINASE TOTAL (BEAKER) (test kzhe=043) 39 U/L 29-200 [id number] 07:48:00 Test Item Value Reference Range Comments PHOSPHORUS (BEAKER) (test aofj=867) 2.0 mg/dL 2.3-4.7 [id number] 07:48:00 Test Item Value Reference Range Comments MAGNESIUM (BEAKER) (test joiz=888) 1.7 mg/dL 1.6-2.6 BASIC METABOLIC [id number] 07:48:00 Test Item Value Reference Range Comments SODIUM (BEAKER) (test 142 meq/L 136-145 ulvj=847) POTASSIUM (BEAKER) (test 3.3 meq/L 3.5-5.1 sjfi=948) CHLORIDE (BEAKER) (test 106 meq/L 98-107 mlia=995) CO2 (BEAKER) (test 26 meq/L 22-29 qaaj=657) BLOOD UREA NITROGEN 19 mg/dL 7-21 (BEAKER) (test febl=588) CREATININE (BEAKER) (test 1.97 mg/dL 0.57-1.25 fupr=870) GLUCOSE RANDOM (BEAKER) 113 mg/dL 70-105 (test oqui=851) CALCIUM (BEAKER) (test 8.1 mg/dL 8.4-10.2 tcat=639) EGFR (BEAKER) (test 31 mL/min/1.73 sq m ESTIMATED GFR IS NOT nljb=5587) ACCURATE CREATININE CLEARANCE IN PREDICTING GLOMERULAR FILTRATION RATE. ESTIMATED GFR IS NOT APPLICABLE FOR DIALYSIS PATIENTS. HEPATIC FUNCTION [id number] 07:48:00 Test Item Value Reference Range Comments TOTAL PROTEIN (BEAKER) (test nfxa=926) 5.7 gm/dL 6.0-8.3 ALBUMIN (BEAKER) (test htmv=7074) 3.1 g/dL 3.5-5.0 BILIRUBIN TOTAL (BEAKER) (test rkkv=111) 1.3 mg/dL 0.2-1.2 BILIRUBIN DIRECT (BEAKER) (test rjss=931) 0.8 mg/dL 0.1-0.5 ALKALINE PHOSPHATASE (BEAKER) (test znvt=117) 51 U/L 40-150 AST (SGOT) (BEAKER) (test tolf=001) 30 U/L 5-34 ALT (SGPT) (BEAKER) (test tvsn=035) 15 U/L 6-55 CBC W/PLT COUNT & AUTO [id number] 07:29:00 Test Item Value Reference Range Comments WHITE BLOOD CELL COUNT (BEAKER) (test ofsk=320) 5.5 K/ L 3.5-10.5 RED BLOOD CELL COUNT (BEAKER) (test gyew=061) 2.97 M/ L 3.93-5.22 HEMOGLOBIN (BEAKER) (test ivjy=007) 9.2 GM/DL 11.2-15.7 HEMATOCRIT (BEAKER) (test boxn=997) 27.9 % 34.1-44.9 MEAN CORPUSCULAR VOLUME (BEAKER) (test tbis=193) 93.9 fL 79.4-94.8 MEAN CORPUSCULAR HEMOGLOBIN (BEAKER) (test 31.0 pg 25.6-32.2 tniz=764) MEAN CORPUSCULAR HEMOGLOBIN CONC (BEAKER) (test 33.0 GM/DL 32.2-35.5 ysfu=624) RED CELL DISTRIBUTION WIDTH (BEAKER) (test 15.9 % 11.7-14.4 nbkn=615) PLATELET COUNT (BEAKER) (test kfhi=940) 177 K/CU MM 150-450 MEAN PLATELET VOLUME (BEAKER) (test mckb=556) 10.0 fL 9.4-12.3 NUCLEATED RED BLOOD CELLS (BEAKER) (test 0 /100 WBC 0-0 lsrb=931) NEUTROPHILS RELATIVE PERCENT (BEAKER) (test 78 % gqzq=528) LYMPHOCYTES RELATIVE PERCENT (BEAKER) (test 18 % gxyb=575) MONOCYTES RELATIVE PERCENT (BEAKER) (test 2 % qbua=340) EOSINOPHILS RELATIVE PERCENT (BEAKER) (test 1 % yeww=007) BASOPHILS RELATIVE PERCENT (BEAKER) (test 0 % coce=594) NEUTROPHILS ABSOLUTE COUNT (BEAKER) (test 4.29 K/ L 1.56-6.13 anlj=469) LYMPHOCYTES ABSOLUTE COUNT (BEAKER) (test 1.00 K/ L 1.18-3.74 mepm=977) MONOCYTES ABSOLUTE COUNT (BEAKER) (test 0.11 K/ L 0.24-0.36 cfpf=931) EOSINOPHILS ABSOLUTE COUNT (BEAKER) (test 0.04 K/ L 0.04-0.36 txba=174) BASOPHILS ABSOLUTE COUNT (BEAKER) (test 0.02 K/ L 0.01-0.08 brtt=460) IMMATURE GRANULOCYTES-RELATIVE PERCENT (BEAKER) 0 % 0-1 (test blex=6089) U/S, [id number] 17:56:00Reason for exam:->ascitesFINAL REPORT Ultrasound-guided paracentesis. Clinical History: Ascites Informed consent was obtained from the patient and the risks of the procedure were explained including bleeding, infection, bowel perforation and visceral injury. Sedation: 1% Xylocaine was used as local sedation. Conscious sedation protocol was not utilized as no systemic analgesia was administered. Technique: Using sterile technique, ultrasound guidance and a 5 [place] coaxial needle, a single pass right lower [...] Segundoeport Verified Date/Time: 02/18/2019 17:56:45 Reading Location: [address] Consult Reading Room [facility] METABOLIC [id number] 10:29:00 Test Item Value Reference Range Comments SODIUM (BEAKER) (test 136 meq/L 136-145 okth=493) POTASSIUM (BEAKER) (test 3.2 meq/L 3.5-5.1 alzz=780) CHLORIDE (BEAKER) (test 106 meq/L 98-107 vrhj=571) CO2 (BEAKER) (test 21 meq/L 22-29 fvyg=720) BLOOD UREA NITROGEN 21 mg/dL 7-21 (BEAKER) (test supi=158) CREATININE (BEAKER) (test 2.30 mg/dL 0.57-1.25 tsxu=126) GLUCOSE RANDOM (BEAKER) 100 mg/dL 70-105 (test ovdn=936) CALCIUM (BEAKER) (test 7.9 mg/dL 8.4-10.2 ezjj=819) EGFR (BEAKER) (test 26 mL/min/1.73 sq m ESTIMATED GFR IS NOT kmyt=9111) ACCURATE CREATININE CLEARANCE IN PREDICTING GLOMERULAR FILTRATION RATE. ESTIMATED GFR IS NOT APPLICABLE FOR DIALYSIS PATIENTS. [id number] 10:16:00 Test Item Value Reference Range Comments PHOSPHORUS (BEAKER) (test dhbd=597) 1.9 mg/dL 2.3-4.7 [id number] 10:16:00 Test Item Value Reference Range Comments MAGNESIUM (BEAKER) (test herz=987) 2.0 mg/dL 1.6-2.6 HEPATIC FUNCTION [id number] 10:16:00 Test Item Value Reference Range Comments TOTAL PROTEIN (BEAKER) (test sudi=315) 6.6 gm/dL 6.0-8.3 ALBUMIN (BEAKER) (test prkg=1877) 3.3 g/dL 3.5-5.0 BILIRUBIN TOTAL (BEAKER) (test onvn=882) 1.2 mg/dL 0.2-1.2 BILIRUBIN DIRECT (BEAKER) (test riel=653) 0.6 mg/dL 0.1-0.5 ALKALINE PHOSPHATASE (BEAKER) (test aheq=780) 51 U/L 40-150 AST (SGOT) (BEAKER) (test zrkk=662) 30 U/L 5-34 ALT (SGPT) (BEAKER) (test tdws=212) 16 U/L 6-55 [id number] 06:55:00 Test Item Value Reference Range Comments PROTIME (BEAKER) (test gicg=295) 15.1 seconds 11.7-14.7 INR (BEAKER) (test zcsy=101) 1.2 <=5.9 PARTIAL THROMBOPLASTIN TIME (BEAKER) (test 31.5 seconds 22.5-36.0 yvwv=336) RECOMMENDED COUMADIN/WARFARIN INR THERAPY RANGESSTANDARD DOSE: 2.0 - 3.0 Includes: PROPHYLAXIS forvenous thrombosis, systemic embolization; TREATMENT for venous thrombosis and/or pulmonary embolus.HIGH RISK: Target INR is 2.5-3.5 for patients with mechanical heart valves.For paracentesisFor paracentesisCBC W/PLT COUNT & AUTO [id number] 06:51:00 Test Item Value Reference Range Comments WHITE BLOOD CELL COUNT (BEAKER) (test dilz=219) 6.0 K/ L 3.5-10.5 RED BLOOD CELL COUNT (BEAKER) (test dinm=299) 2.89 M/ L 3.93-5.22 HEMOGLOBIN (BEAKER) (test djyz=914) 8.9 GM/DL 11.2-15.7 HEMATOCRIT (BEAKER) (test oypc=151) 27.4 % 34.1-44.9 MEAN CORPUSCULAR VOLUME (BEAKER) (test ouzu=422) 94.8 fL 79.4-94.8 MEAN CORPUSCULAR HEMOGLOBIN (BEAKER) (test 30.8 pg 25.6-32.2 ruqx=182) MEAN CORPUSCULAR HEMOGLOBIN CONC (BEAKER) (test 32.5 GM/DL 32.2-35.5 nykf=985) RED CELL DISTRIBUTION WIDTH (BEAKER) (test 16.2 % 11.7-14.4 mouk=849) PLATELET COUNT (BEAKER) (test clgn=147) 161 K/CU MM 150-450 MEAN PLATELET VOLUME (BEAKER) (test fjeg=314) 9.8 fL 9.4-12.3 NUCLEATED RED BLOOD CELLS (BEAKER) (test 0 /100 WBC 0-0 ogtp=787) NEUTROPHILS RELATIVE PERCENT (BEAKER) (test 77 % cvyx=417) LYMPHOCYTES RELATIVE PERCENT (BEAKER) (test 18 % iqiv=509) MONOCYTES RELATIVE PERCENT (BEAKER) (test 4 % vccq=612) EOSINOPHILS RELATIVE PERCENT (BEAKER) (test 1 % varo=866) BASOPHILS RELATIVE PERCENT (BEAKER) (test 0 % adja=778) NEUTROPHILS ABSOLUTE COUNT (BEAKER) (test 4.64 K/ L 1.56-6.13 tcar=682) LYMPHOCYTES ABSOLUTE COUNT (BEAKER) (test 1.10 K/ L 1.18-3.74 gabo=822) MONOCYTES ABSOLUTE COUNT (BEAKER) (test 0.23 K/ L 0.24-0.36 oeig=632) EOSINOPHILS ABSOLUTE COUNT (BEAKER) (test 0.03 K/ L 0.04-0.36 rymn=201) BASOPHILS ABSOLUTE COUNT (BEAKER) (test 0.01 K/ L 0.01-0.08 sojf=070) IMMATURE GRANULOCYTES-RELATIVE PERCENT (BEAKER) 1 % 0-1 (test gtwn=6338) BASIC METABOLIC [id number] 09:31:00 Test Item Value Reference Range Comments SODIUM (BEAKER) (test 139 meq/L 136-145 bdrr=300) POTASSIUM (BEAKER) (test 3.5 meq/L 3.5-5.1 wrug=969) CHLORIDE (BEAKER) (test 106 meq/L 98-107 nwhl=425) CO2 (BEAKER) (test 23 meq/L 22-29 ptic=151) BLOOD UREA NITROGEN 20 mg/dL 7-21 (BEAKER) (test esnd=249) CREATININE (BEAKER) (test 2.29 mg/dL 0.57-1.25 venw=361) GLUCOSE RANDOM (BEAKER) 130 mg/dL 70-105 (test ogdv=571) CALCIUM (BEAKER) (test 7.8 mg/dL 8.4-10.2 wifc=067) EGFR (BEAKER) (test 26 mL/min/1.73 sq m ESTIMATED GFR IS NOT udcm=4727) ACCURATE CREATININE CLEARANCE IN PREDICTING GLOMERULAR FILTRATION RATE. ESTIMATED GFR IS NOT APPLICABLE FOR DIALYSIS PATIENTS. COMPREHENSIVE METABOLIC [id number] 09:31:00 Test Item Value Reference Range Comments TOTAL PROTEIN (BEAKER) 5.9 gm/dL 6.0-8.3 (test oner=325) ALBUMIN (BEAKER) (test 3.2 g/dL 3.5-5.0 lsee=0226) ALKALINE PHOSPHATASE 46 U/L 40-150 (BEAKER) (test xfml=891) BILIRUBIN TOTAL (BEAKER) 0.8 mg/dL 0.2-1.2 (test miks=031) SODIUM (BEAKER) (test 139 meq/L 136-145 thmb=224) POTASSIUM (BEAKER) (test 3.5 meq/L 3.5-5.1 gptv=586) CHLORIDE (BEAKER) (test 106 meq/L 98-107 ucus=928) CO2 (BEAKER) (test 23 meq/L 22-29 olba=188) BLOOD UREA NITROGEN 20 mg/dL 7-21 (BEAKER) (test bigk=853) CREATININE (BEAKER) (test 2.29 mg/dL 0.57-1.25 eriw=015) GLUCOSE RANDOM (BEAKER) 130 mg/dL 70-105 (test vhou=729) CALCIUM (BEAKER) (test 7.8 mg/dL 8.4-10.2 ywkz=983) AST (SGOT) (BEAKER) (test 32 U/L 5-34 kpjz=523) ALT (SGPT) (BEAKER) (test 16 U/L 6-55 tmvl=593) EGFR (BEAKER) (test 26 mL/min/1.73 sq m ESTIMATED GFR IS NOT ooqz=6092) ACCURATE CREATININE CLEARANCE IN PREDICTING GLOMERULAR FILTRATION RATE. ESTIMATED GFR IS NOT APPLICABLE FOR DIALYSIS PATIENTS. [id number] 09:30:00 Test Item Value Reference Range Comments PHOSPHORUS (BEAKER) (test lnfs=468) 2.5 mg/dL 2.3-4.7 URIC [id number] 09:30:00 Test Item Value Reference Range Comments URIC ACID (BEAKER) (test nujb=789) 8.7 mg/dL 2.6-7.2 HEPATIC FUNCTION [id number] 09:30:00 Test Item Value Reference Range Comments TOTAL PROTEIN (BEAKER) (test ilns=902) 5.9 gm/dL 6.0-8.3 ALBUMIN (BEAKER) (test uzre=5294) 3.2 g/dL 3.5-5.0 BILIRUBIN TOTAL (BEAKER) (test flze=812) 0.8 mg/dL 0.2-1.2 BILIRUBIN DIRECT (BEAKER) (test jqdb=473) 0.5 mg/dL 0.1-0.5 ALKALINE PHOSPHATASE (BEAKER) (test dwqk=260) 46 U/L 40-150 AST (SGOT) (BEAKER) (test nvwu=587) 32 U/L 5-34 ALT (SGPT) (BEAKER) (test remn=222) 16 U/L 6-55 CALCIUM, [id number] 08:41:00 Test Item Value Reference Range Comments CALCIUM IONIZED (BEAKER) (test pqis=662) 0.92 mmol/L 1.12-1.27 PH, BLOOD (BEAKER) (test nveq=1178) 7.41 [id number] 08:38:00 Test Item Value Reference Range Comments MAGNESIUM (BEAKER) (test wpwo=020) 1.8 mg/dL 1.6-2.6 CBC W/PLT COUNT & AUTO [id number] 08:34:00 Test Item Value Reference Range Comments WHITE BLOOD CELL COUNT (BEAKER) (test tbhy=371) 6.1 K/ L 3.5-10.5 RED BLOOD CELL COUNT (BEAKER) (test daip=610) 2.29 M/ L 3.93-5.22 HEMOGLOBIN (BEAKER) (test iuym=734) 7.1 GM/DL 11.2-15.7 HEMATOCRIT (BEAKER) (test aqei=579) 22.6 % 34.1-44.9 MEAN CORPUSCULAR VOLUME (BEAKER) (test ldte=414) 98.7 fL 79.4-94.8 MEAN CORPUSCULAR HEMOGLOBIN (BEAKER) (test 31.0 pg 25.6-32.2 ppyo=101) MEAN CORPUSCULAR HEMOGLOBIN CONC (BEAKER) (test 31.4 GM/DL 32.2-35.5 acso=613) RED CELL DISTRIBUTION WIDTH (BEAKER) (test 13.9 % 11.7-14.4 ffmi=503) PLATELET COUNT (BEAKER) (test aipc=348) 193 K/CU MM 150-450 MEAN PLATELET VOLUME (BEAKER) (test ukqp=856) 9.0 fL 9.4-12.3 NUCLEATED RED BLOOD CELLS (BEAKER) (test 0 /100 WBC 0-0 pfpc=601) NEUTROPHILS RELATIVE PERCENT (BEAKER) (test 80 % dvfr=317) LYMPHOCYTES RELATIVE PERCENT (BEAKER) (test 16 % urbk=849) MONOCYTES RELATIVE PERCENT (BEAKER) (test 4 % bhex=820) EOSINOPHILS RELATIVE PERCENT (BEAKER) (test 0 % geuk=720) BASOPHILS RELATIVE PERCENT (BEAKER) (test 0 % pyiv=295) NEUTROPHILS ABSOLUTE COUNT (BEAKER) (test 4.88 K/ L 1.56-6.13 xwel=405) LYMPHOCYTES ABSOLUTE COUNT (BEAKER) (test 0.95 K/ L 1.18-3.74 xfuq=676) MONOCYTES ABSOLUTE COUNT (BEAKER) (test 0.23 K/ L 0.24-0.36 pwak=446) EOSINOPHILS ABSOLUTE COUNT (BEAKER) (test 0.00 K/ L 0.04-0.36 phbd=918) BASOPHILS ABSOLUTE COUNT (BEAKER) (test 0.01 K/ L 0.01-0.08 jxbe=533) IMMATURE GRANULOCYTES-RELATIVE PERCENT (BEAKER) 1 % 0-1 (test dsus=9598) C. DIFFICILE GDH [id number] 19:27:00 Test Item Value Reference Range Comments CDT TOXIN (test Negative Negative hayb=[id number]) CDT GDH ANTIGEN (test Negative Negative No indication of Clostridium gmvw=[id number]) difficile infection and no colonization. Discontinue enteric isolation and therapy. Testing performed by Responsa Rapid Cassette Assay. For GDH, published sensitivity of the assay is 98.7% compared to cytotoxicity testing. For Toxin AB, published sensitivity is 87.8% and specificity 99.4% compared to cytotoxicity testing.Verification of kit performance was done by the [facility] Microbiology Lab prior to clinical use.CBC W/PLT COUNT & AUTO [id number] 13:33:00 Test Item Value Reference Range Comments WHITE BLOOD CELL COUNT (BEAKER) (test teff=965) 7.3 K/ L 3.5-10.5 RED BLOOD CELL COUNT (BEAKER) (test lsyz=584) 2.43 M/ L 3.93-5.22 HEMOGLOBIN (BEAKER) (test xnow=693) 7.6 GM/DL 11.2-15.7 HEMATOCRIT (BEAKER) (test vebg=872) 24.4 % 34.1-44.9 MEAN CORPUSCULAR VOLUME (BEAKER) (test kmjv=886) 100.4 fL 79.4-94.8 MEAN CORPUSCULAR HEMOGLOBIN (BEAKER) (test 31.3 pg 25.6-32.2 jlbg=219) MEAN CORPUSCULAR HEMOGLOBIN CONC (BEAKER) (test 31.1 GM/DL 32.2-35.5 mlso=976) RED CELL DISTRIBUTION WIDTH (BEAKER) (test 14.1 % 11.7-14.4 jgux=485) PLATELET COUNT (BEAKER) (test ulcd=563) 214 K/CU MM 150-450 MEAN PLATELET VOLUME (BEAKER) (test qmbd=752) 8.7 fL 9.4-12.3 NUCLEATED RED BLOOD CELLS (BEAKER) (test 0 /100 WBC 0-0 rgqa=811) (MANUAL DIFFERENTIAL)[id number] 13:33:00 Test Item Value Reference Range Comments NEUTROPHILS - REL (DIFF) (BEAKER) (test bshs=5142) 74 % LYMPHOCYTES - REL (DIFF) (BEAKER) (test sosu=7410) 14 % MONOCYTES - REL (DIFF) (BEAKER) (test wtyv=0284) 10 % EOSINOPHILS - REL (DIFF) (BEAKER) (test sctu=9784) 1 % BASOPHILS - REL (DIFF) (BEAKER) (test qcaa=4244) 1 % NEUTROPHILS - ABS (DIFF) (BEAKER) (test wfdi=9460) 5.40 K/ L 1.80-8.00 LYMPHOCYTES - ABS (DIFF) (BEAKER) (test smgu=9807) 1.02 K/ L 1.48-4.50 MONOCYTES - ABS (DIFF) (BEAKER) (test wndx=2474) 0.73 K/ L 0.00-1.30 EOSINOPHILS - ABS (DIFF) (BEAKER) (test magg=5699) 0.07 K/ L 0.00-0.50 BASOPHILS - ABS (DIFF) (BEAKER) (test yhez=1439) 0.07 K/ L 0.00-0.20 TOTAL COUNTED (BEAKER) (test dqwh=8436) 100 WBC MORPHOLOGY (BEAKER) (test iezk=152) Normal PLT MORPHOLOGY (BEAKER) (test pjbq=136) Normal RBC MORPHOLOGY (BEAKER) (test mqyy=438) Normal CALCIUM, [id number] 08:55:00 Test Item Value Reference Range Comments CALCIUM IONIZED (BEAKER) (test jbwl=581) 0.81 mmol/L 1.12-1.27 PH, BLOOD (BEAKER) (test zogk=1852) 7.38 COMPREHENSIVE METABOLIC [id number] 07:16:00 Test Item Value Reference Range Comments TOTAL PROTEIN (BEAKER) 6.3 gm/dL 6.0-8.3 (test vmtw=870) ALBUMIN (BEAKER) (test 3.5 g/dL 3.5-5.0 uqls=3698) ALKALINE PHOSPHATASE 39 U/L 40-150 (BEAKER) (test pkxl=077) BILIRUBIN TOTAL (BEAKER) 1.3 mg/dL 0.2-1.2 (test sqpp=824) SODIUM (BEAKER) (test 140 meq/L 136-145 iqpj=509) POTASSIUM (BEAKER) (test 3.6 meq/L 3.5-5.1 opmh=418) CHLORIDE (BEAKER) (test 109 meq/L 98-107 fvfb=858) CO2 (BEAKER) (test 19 meq/L 22-29 toaf=468) BLOOD UREA NITROGEN 16 mg/dL 7-21 (BEAKER) (test amsm=869) CREATININE (BEAKER) (test 2.52 mg/dL 0.57-1.25 iuyl=202) GLUCOSE RANDOM (BEAKER) 116 mg/dL 70-105 (test bdmq=871) CALCIUM (BEAKER) (test 8.4 mg/dL 8.4-10.2 bfmf=543) AST (SGOT) (BEAKER) (test 25 U/L 5-34 qezc=809) ALT (SGPT) (BEAKER) (test 13 U/L 6-55 cujh=612) EGFR (BEAKER) (test 23 mL/min/1.73 sq m ESTIMATED GFR IS NOT yrzn=5549) ACCURATE CREATININE CLEARANCE IN PREDICTING GLOMERULAR FILTRATION RATE. ESTIMATED GFR IS NOT APPLICABLE FOR DIALYSIS PATIENTS. BASIC METABOLIC [id number] 07:15:00 Test Item Value Reference Range Comments SODIUM (BEAKER) (test 140 meq/L 136-145 oizc=541) POTASSIUM (BEAKER) (test 3.6 meq/L 3.5-5.1 fmlj=015) CHLORIDE (BEAKER) (test 109 meq/L 98-107 htww=816) CO2 (BEAKER) (test 19 meq/L 22-29 hfwe=227) BLOOD UREA NITROGEN 16 mg/dL 7-21 (BEAKER) (test sxpl=364) CREATININE (BEAKER) (test 2.52 mg/dL 0.57-1.25 sati=556) GLUCOSE RANDOM (BEAKER) 116 mg/dL 70-105 (test pmkg=931) CALCIUM (BEAKER) (test 8.4 mg/dL 8.4-10.2 fscl=492) EGFR (BEAKER) (test 23 mL/min/1.73 sq m ESTIMATED GFR IS NOT smxf=5929) ACCURATE CREATININE CLEARANCE IN PREDICTING GLOMERULAR FILTRATION RATE. ESTIMATED GFR IS NOT APPLICABLE FOR DIALYSIS PATIENTS. [id number] 07:10:00 Test Item Value Reference Range Comments PHOSPHORUS (BEAKER) (test afom=256) 1.9 mg/dL 2.3-4.7 [id number] 07:10:00 Test Item Value Reference Range Comments MAGNESIUM (BEAKER) (test shrf=983) 1.9 mg/dL 1.6-2.6 HEPATIC FUNCTION [id number] 07:10:00 Test Item Value Reference Range Comments TOTAL PROTEIN (BEAKER) (test gjoi=358) 6.3 gm/dL 6.0-8.3 ALBUMIN (BEAKER) (test qkia=7493) 3.5 g/dL 3.5-5.0 BILIRUBIN TOTAL (BEAKER) (test eego=201) 1.3 mg/dL 0.2-1.2 BILIRUBIN DIRECT (BEAKER) (test tadb=977) 0.8 mg/dL 0.1-0.5 ALKALINE PHOSPHATASE (BEAKER) (test qpfo=915) 39 U/L 40-150 AST (SGOT) (BEAKER) (test bzbq=910) 25 U/L 5-34 ALT (SGPT) (BEAKER) (test pepw=999) 13 U/L 6-55 RAD, CHEST, 1 VIEW, NON [id number] 21:33:00Reason for exam:->PICC LINE TIP VERIFICATIONShould this [...] MDReport Verified Date/Time: 02/15 21:33:22 Reading Location: [address] Reading Room CBC W/PLT COUNT & AUTO [id number] 11:37:00 Test Item Value Reference Range Comments WHITE BLOOD CELL COUNT (BEAKER) (test saar=862) 7.1 K/ L 3.5-10.5 RED BLOOD CELL COUNT (BEAKER) (test qzya=057) 2.43 M/ L 3.93-5.22 HEMOGLOBIN (BEAKER) (test uslw=952) 7.7 GM/DL 11.2-15.7 HEMATOCRIT (BEAKER) (test zawe=389) 24.3 % 34.1-44.9 MEAN CORPUSCULAR VOLUME (BEAKER) (test mlbx=337) 100.0 fL 79.4-94.8 MEAN CORPUSCULAR HEMOGLOBIN (BEAKER) (test 31.7 pg 25.6-32.2 icdg=046) MEAN CORPUSCULAR HEMOGLOBIN CONC (BEAKER) (test 31.7 GM/DL 32.2-35.5 lrwj=240) RED CELL DISTRIBUTION WIDTH (BEAKER) (test 13.8 % 11.7-14.4 himn=432) PLATELET COUNT (BEAKER) (test exyz=421) 216 K/CU MM 150-450 MEAN PLATELET VOLUME (BEAKER) (test vovt=079) 8.8 fL 9.4-12.3 NUCLEATED RED BLOOD CELLS (BEAKER) (test 0 /100 WBC 0-0 lxhf=110) (CELLAVISION MANUAL DIFF)[id number] 11:37:00 Test Item Value Reference Range Comments NEUTROPHILS - REL (CELLAVISION)(BEAKER) (test 75 % ysmz=2902) LYMPHOCYTES - REL (CELLAVISION)(BEAKER) (test 20 % eapk=8652) MONOCYTES - REL (CELLAVISION)(BEAKER) (test 4 % jnzb=3716) ATYPICAL LYMPHOCYTES - REL (CELLAVISION)(BEAKER) 1 % 0-0 (test olfs=5973) NEUTROPHILS - ABS (CELLAVISION)(BEAKER) (test 5.33 K/ul 1.56-6.13 pwjo=5854) LYMPHOCYTES - ABS (CELLAVISION)(BEAKER) (test 1.42 K/ul 1.18-3.74 jzmd=7932) MONOCYTES - ABS (CELLAVISION)(BEAKER) (test 0.28 K/uL 0.24-0.36 agmg=7608) ATYPICAL LYMPHOCYTES - ABS (CELLAVISION)(BEAKER) 0.07 K/uL 0.00-0.00 (test leyu=5703) TOTAL COUNTED (BEAKER) (test mohw=6715) 100 WBC MORPHOLOGY (BEAKER) (test kedv=150) Normal LARGE PLT(BEAKER) (test ivdj=8063) Present POLYCHROMATOPHILLIC RBCS(BEAKER) (test cfha=293) 1+ few HYPOCHROMIA (BEAKER) (test vhrg=344) 1+ few ARTIFACT (CELLAVISION)(BEAKER) (test djuw=9978) Present PLATELET CONCENTRATION (CELLAVISION)(BEAKER) (test Adequate gukr=7088) Received comment: User comments: Slide comments:CREATININE, RANDOM [id number] 08:13:00 Test Item Value Reference Range Comments CREATININE URINE (BEAKER) (test dpbg=653) 166.6 mg/dL Reference Range: No NormalsPROTEIN, RANDOM [id number] 07:32:00 Test Item Value Reference Range Comments PROTEIN, URINE (BEAKER) (test ehte=2537) 58 mg/dL 0-14 CALCIUM, [id number] 07:05:00 Test Item Value Reference Range Comments CALCIUM IONIZED (BEAKER) (test sukb=370) 0.72 mmol/L 1.12-1.27 PH, BLOOD (BEAKER) (test zwcz=1213) 7.50 CBC W/PLT COUNT & AUTO [id number] 06:47:00 Test Item Value Reference Range Comments WHITE BLOOD CELL COUNT (BEAKER) (test qyyu=695) 7.2 K/ L 3.5-10.5 RED BLOOD CELL COUNT (BEAKER) (test ppqy=532) 2.42 M/ L 3.93-5.22 HEMOGLOBIN (BEAKER) (test ocdp=416) 7.5 GM/DL 11.2-15.7 HEMATOCRIT (BEAKER) (test xvtb=052) 24.2 % 34.1-44.9 MEAN CORPUSCULAR VOLUME (BEAKER) (test mwsl=456) 100.0 fL 79.4-94.8 MEAN CORPUSCULAR HEMOGLOBIN (BEAKER) (test 31.0 pg 25.6-32.2 bqhq=285) MEAN CORPUSCULAR HEMOGLOBIN CONC (BEAKER) (test 31.0 GM/DL 32.2-35.5 pswk=909) RED CELL DISTRIBUTION WIDTH (BEAKER) (test 14.0 % 11.7-14.4 notc=591) PLATELET COUNT (BEAKER) (test rafu=508) 220 K/CU MM 150-450 MEAN PLATELET VOLUME (BEAKER) (test wzel=719) 8.5 fL 9.4-12.3 NUCLEATED RED BLOOD CELLS (BEAKER) (test 0 /100 WBC 0-0 mjob=640) NEUTROPHILS RELATIVE PERCENT (BEAKER) (test 69 % nbcz=683) LYMPHOCYTES RELATIVE PERCENT (BEAKER) (test 22 % qbfk=676) MONOCYTES RELATIVE PERCENT (BEAKER) (test 7 % nqpf=733) EOSINOPHILS RELATIVE PERCENT (BEAKER) (test 1 % mtys=151) BASOPHILS RELATIVE PERCENT (BEAKER) (test 1 % nook=379) NEUTROPHILS ABSOLUTE COUNT (BEAKER) (test 4.98 K/ L 1.56-6.13 lpbb=135) LYMPHOCYTES ABSOLUTE COUNT (BEAKER) (test 1.60 K/ L 1.18-3.74 tyaf=396) MONOCYTES ABSOLUTE COUNT (BEAKER) (test 0.53 K/ L 0.24-0.36 zjsf=172) EOSINOPHILS ABSOLUTE COUNT (BEAKER) (test 0.04 K/ L 0.04-0.36 vuwx=499) BASOPHILS ABSOLUTE COUNT (BEAKER) (test 0.04 K/ L 0.01-0.08 uqzv=404) IMMATURE GRANULOCYTES-RELATIVE PERCENT (BEAKER) 0 % 0-1 (test rjus=6103) COMPREHENSIVE METABOLIC [id number] 06:39:00 Test Item Value Reference Range Comments TOTAL PROTEIN (BEAKER) 6.4 gm/dL 6.0-8.3 (test snpj=471) ALBUMIN (BEAKER) (test 3.6 g/dL 3.5-5.0 omam=0273) ALKALINE PHOSPHATASE 32 U/L 40-150 (BEAKER) (test dywa=222) BILIRUBIN TOTAL (BEAKER) 1.4 mg/dL 0.2-1.2 (test xhzv=981) SODIUM (BEAKER) (test 140 meq/L 136-145 fvar=384) POTASSIUM (BEAKER) (test 3.8 meq/L 3.5-5.1 jfsu=666) CHLORIDE (BEAKER) (test 110 meq/L 98-107 hami=047) CO2 (BEAKER) (test 19 meq/L 22-29 elzm=710) BLOOD UREA NITROGEN 15 mg/dL 7-21 (BEAKER) (test zbws=176) CREATININE (BEAKER) (test 2.30 mg/dL 0.57-1.25 frwn=724) GLUCOSE RANDOM (BEAKER) 102 mg/dL 70-105 (test xaag=530) CALCIUM (BEAKER) (test 8.0 mg/dL 8.4-10.2 kuni=429) AST (SGOT) (BEAKER) (test 17 U/L 5-34 igea=046) ALT (SGPT) (BEAKER) (test 9 U/L 6-55 icla=363) EGFR (BEAKER) (test 26 mL/min/1.73 sq m ESTIMATED GFR IS NOT usoe=4795) ACCURATE CREATININE CLEARANCE IN PREDICTING GLOMERULAR FILTRATION RATE. ESTIMATED GFR IS NOT APPLICABLE FOR DIALYSIS PATIENTS. HEPATIC FUNCTION [id number] 06:23:00 Test Item Value Reference Range Comments TOTAL PROTEIN (BEAKER) (test nyoa=776) 6.4 gm/dL 6.0-8.3 ALBUMIN (BEAKER) (test cnln=8920) 3.6 g/dL 3.5-5.0 BILIRUBIN TOTAL (BEAKER) (test xbcr=724) 1.3 mg/dL 0.2-1.2 BILIRUBIN DIRECT (BEAKER) (test xjax=110) 0.7 mg/dL 0.1-0.5 ALKALINE PHOSPHATASE (BEAKER) (test sjme=623) 34 U/L 40-150 AST (SGOT) (BEAKER) (test klup=175) 19 U/L 5-34 ALT (SGPT) (BEAKER) (test spwa=752) 8 U/L 6-55 [id number] 06:22:00 Test Item Value Reference Range Comments PHOSPHORUS (BEAKER) (test drha=384) 2.3 mg/dL 2.3-4.7 [id number] 06:22:00 Test Item Value Reference Range Comments MAGNESIUM (BEAKER) (test ltou=446) 2.2 mg/dL 1.6-2.6 HEPATIC FUNCTION [id number] 06:22:00 Test Item Value Reference Range Comments TOTAL PROTEIN (BEAKER) (test fsmx=749) 6.4 gm/dL 6.0-8.3 ALBUMIN (BEAKER) (test tvfg=8106) 3.6 g/dL 3.5-5.0 BILIRUBIN TOTAL (BEAKER) (test ljkv=460) 1.4 mg/dL 0.2-1.2 BILIRUBIN DIRECT (BEAKER) (test ubhe=730) 0.7 mg/dL 0.1-0.5 ALKALINE PHOSPHATASE (BEAKER) (test frab=094) 32 U/L 40-150 AST (SGOT) (BEAKER) (test plej=520) 17 U/L 5-34 ALT (SGPT) (BEAKER) (test wryc=082) 9 U/L 6-55 BLOOD [id number] 20:01:00 Test Item Value Reference Range Comments CULTURE (BEAKER) (test jhkf=9438) No growth in 5 days HEMOGLOBIN AND [id number] 13:02:00 Test Item Value Reference Range Comments HEMOGLOBIN (BEAKER) (test kltt=722) 8.1 GM/DL 11.2-15.7 HEMATOCRIT (BEAKER) (test bdxx=370) 25.7 % 34.1-44.9 ANTI-MITOCHONDRIAL AB, REFLEX TO [id number] 12:19:00 Test Item Value Reference Range Comments SCAN RESULT (test hrcd=[id number]) [id number] 07:43:00 Test Item Value Reference Range Comments PHOSPHORUS (BEAKER) (test eswx=324) 1.3 mg/dL 2.3-4.7 CALCIUM, [id number] 06:25:00 Test Item Value Reference Range Comments CALCIUM IONIZED (BEAKER) (test fmks=857) 1.05 mmol/L 1.12-1.27 PH, BLOOD (BEAKER) (test mxag=4219) 7.44 COMPREHENSIVE METABOLIC [id number] 06:24:00 Test Item Value Reference Range Comments TOTAL PROTEIN (BEAKER) 6.3 gm/dL 6.0-8.3 (test lnme=594) ALBUMIN (BEAKER) (test 3.8 g/dL 3.5-5.0 hpgs=9276) ALKALINE PHOSPHATASE 31 U/L 40-150 (BEAKER) (test okhg=881) BILIRUBIN TOTAL (BEAKER) 1.3 mg/dL 0.2-1.2 (test vcow=465) SODIUM (BEAKER) (test 141 meq/L 136-145 gjbp=091) POTASSIUM (BEAKER) (test 3.5 meq/L 3.5-5.1 fsoy=939) CHLORIDE (BEAKER) (test 110 meq/L 98-107 bukb=069) CO2 (BEAKER) (test 22 meq/L 22-29 nrta=583) BLOOD UREA NITROGEN 13 mg/dL 7-21 (BEAKER) (test pmag=180) CREATININE (BEAKER) (test 2.36 mg/dL 0.57-1.25 noup=317) GLUCOSE RANDOM (BEAKER) 108 mg/dL 70-105 (test vlxu=396) CALCIUM (BEAKER) (test 8.2 mg/dL 8.4-10.2 uxoa=485) AST (SGOT) (BEAKER) (test 14 U/L 5-34 yyuk=211) ALT (SGPT) (BEAKER) (test 6 U/L 6-55 qljo=359) EGFR (BEAKER) (test 25 mL/min/1.73 sq m ESTIMATED GFR IS NOT jbvg=8280) ACCURATE CREATININE CLEARANCE IN PREDICTING GLOMERULAR FILTRATION RATE. ESTIMATED GFR IS NOT APPLICABLE FOR DIALYSIS PATIENTS. [id number] 06:17:00 Test Item Value Reference Range Comments MAGNESIUM (BEAKER) (test gcha=241) 2.2 mg/dL 1.6-2.6 CBC W/PLT COUNT & AUTO [id number] 05:33:00 Test Item Value Reference Range Comments WHITE BLOOD CELL COUNT (BEAKER) (test afva=135) 5.8 K/ L 3.5-10.5 RED BLOOD CELL COUNT (BEAKER) (test jgqp=896) 2.22 M/ L 3.93-5.22 HEMOGLOBIN (BEAKER) (test pmeb=844) 7.0 GM/DL 11.2-15.7 HEMATOCRIT (BEAKER) (test zmoy=393) 22.5 % 34.1-44.9 MEAN CORPUSCULAR VOLUME (BEAKER) (test sicx=520) 101.4 fL 79.4-94.8 MEAN CORPUSCULAR HEMOGLOBIN (BEAKER) (test 31.5 pg 25.6-32.2 ydge=783) MEAN CORPUSCULAR HEMOGLOBIN CONC (BEAKER) (test 31.1 GM/DL 32.2-35.5 kfni=124) RED CELL DISTRIBUTION WIDTH (BEAKER) (test 13.6 % 11.7-14.4 aozb=581) PLATELET COUNT (BEAKER) (test aixn=081) 169 K/CU MM 150-450 MEAN PLATELET VOLUME (BEAKER) (test txef=435) 8.5 fL 9.4-12.3 NUCLEATED RED BLOOD CELLS (BEAKER) (test 0 /100 WBC 0-0 xank=972) NEUTROPHILS RELATIVE PERCENT (BEAKER) (test 67 % vjms=288) LYMPHOCYTES RELATIVE PERCENT (BEAKER) (test 22 % xuuo=814) MONOCYTES RELATIVE PERCENT (BEAKER) (test 9 % mwji=969) EOSINOPHILS RELATIVE PERCENT (BEAKER) (test 1 % bfqg=337) BASOPHILS RELATIVE PERCENT (BEAKER) (test 1 % qepm=185) NEUTROPHILS ABSOLUTE COUNT (BEAKER) (test 3.84 K/ L 1.56-6.13 rync=831) LYMPHOCYTES ABSOLUTE COUNT (BEAKER) (test 1.28 K/ L 1.18-3.74 jnia=813) MONOCYTES ABSOLUTE COUNT (BEAKER) (test 0.50 K/ L 0.24-0.36 smtr=873) EOSINOPHILS ABSOLUTE COUNT (BEAKER) (test 0.07 K/ L 0.04-0.36 vdao=429) BASOPHILS ABSOLUTE COUNT (BEAKER) (test 0.06 K/ L 0.01-0.08 bonr=477) IMMATURE GRANULOCYTES-RELATIVE PERCENT (BEAKER) 0 % 0-1 (test bahe=7421) RAD, CHEST, 1 VIEW, NON [id number] 12:56:00Reason for exam:->edemaShould this be performed at [...] MDReport Verified Date/Time: 2018 12:56:07 Reading Location: [facility] Mammo Reading Room [id number] 11:09: 00Medical Cytology Report Case: [id number] Authorizing Provider: Charles Jaimes NP Collected : 02/09/2019 1600 Ordering Location: [place] [address] ICU Received: 02/10/2019 0805 Pathologist: Ayesha Vance MD Specimen: Peritoneal Fluid PERITONEAL FLUID (CYTOSPINS AND CELL BLOCK): - SCATTERED ATYPICAL CELLS, COMPATIBLE WITH METASTATIC ADENOCARCINOMA (SEE COMMENT) Signing Pathologist Direct Phone Line: [phone] signed by Ayesha Vance MD on 02/13/2019 at 11:09 AMThe patient has a recent sample of peritoneal fluid ([id number]) with metastatic adenocarcinoma. In the current sample , atypical cells with similar features are seen.Please see the prior sample (C19 -834) for additional evaluation and information. 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 02/03/19(see [id number] )PERITONEAL [id number] mls yellow; 4 cytospins, cell blockCollected: [id number]: [id number] [facility], Department of Pathology, [address] [place] [address], [facility], [address] [place] [address], [facility], [facility], [address] [place] [address], b-TYPE NATRIURETIC FACTOR (BNP)2019-02-13 10:48:00 Test Item Value Reference Range Comments B-TYPE NATRIURETIC PEPTIDE (BEAKER) (test 107 pg/mL 0-100 xcvv=507) COMPREHENSIVE METABOLIC [id number] 10:41:00 Test Item Value Reference Range Comments TOTAL PROTEIN (BEAKER) 6.8 gm/dL 6.0-8.3 (test vloj=847) ALBUMIN (BEAKER) (test 4.2 g/dL 3.5-5.0 nlir=4031) ALKALINE PHOSPHATASE 35 U/L 40-150 (BEAKER) (test bzqq=478) BILIRUBIN TOTAL (BEAKER) 1.3 mg/dL 0.2-1.2 (test lmbw=618) SODIUM (BEAKER) (test 143 meq/L 136-145 mhvd=699) POTASSIUM (BEAKER) (test 3.3 meq/L 3.5-5.1 fbou=830) CHLORIDE (BEAKER) (test 111 meq/L 98-107 hszr=275) CO2 (BEAKER) (test 20 meq/L 22-29 knbz=214) BLOOD UREA NITROGEN 12 mg/dL 7-21 (BEAKER) (test czkv=769) CREATININE (BEAKER) (test 2.68 mg/dL 0.57-1.25 nxzo=230) GLUCOSE RANDOM (BEAKER) 97 mg/dL 70-105 (test vfjg=256) CALCIUM (BEAKER) (test 8.6 mg/dL 8.4-10.2 wifw=007) AST (SGOT) (BEAKER) (test 13 U/L 5-34 xrzi=026) ALT (SGPT) (BEAKER) (test 6 U/L 6-55 gugs=607) EGFR (BEAKER) (test 22 mL/min/1.73 sq m ESTIMATED GFR IS NOT ybcn=6199) ACCURATE CREATININE CLEARANCE IN PREDICTING GLOMERULAR FILTRATION RATE. ESTIMATED GFR IS NOT APPLICABLE FOR DIALYSIS PATIENTS. BASIC METABOLIC [id number] 10:41:00 Test Item Value Reference Range Comments SODIUM (BEAKER) (test 143 meq/L 136-145 awzj=845) POTASSIUM (BEAKER) (test 3.3 meq/L 3.5-5.1 swkz=370) CHLORIDE (BEAKER) (test 111 meq/L 98-107 iuia=002) CO2 (BEAKER) (test 20 meq/L 22-29 toxp=449) BLOOD UREA NITROGEN 12 mg/dL 7-21 (BEAKER) (test nmhy=767) CREATININE (BEAKER) (test 2.68 mg/dL 0.57-1.25 tads=726) GLUCOSE RANDOM (BEAKER) 97 mg/dL 70-105 (test qzsv=619) CALCIUM (BEAKER) (test 8.6 mg/dL 8.4-10.2 oibz=929) EGFR (BEAKER) (test 22 mL/min/1.73 sq m ESTIMATED GFR IS NOT ijeq=0350) ACCURATE CREATININE CLEARANCE IN PREDICTING GLOMERULAR FILTRATION RATE. ESTIMATED GFR IS NOT APPLICABLE FOR DIALYSIS PATIENTS. CBC W/PLT COUNT & AUTO [id number] 10:37:00 Test Item Value Reference Range Comments WHITE BLOOD CELL COUNT (BEAKER) (test mjve=366) 6.0 K/ L 3.5-10.5 RED BLOOD CELL COUNT (BEAKER) (test xopx=143) 2.33 M/ L 3.93-5.22 HEMOGLOBIN (BEAKER) (test ycge=332) 7.6 GM/DL 11.2-15.7 HEMATOCRIT (BEAKER) (test swog=026) 23.2 % 34.1-44.9 MEAN CORPUSCULAR VOLUME (BEAKER) (test nkvb=803) 99.6 fL 79.4-94.8 MEAN CORPUSCULAR HEMOGLOBIN (BEAKER) (test 32.6 pg 25.6-32.2 vhxi=732) MEAN CORPUSCULAR HEMOGLOBIN CONC (BEAKER) (test 32.8 GM/DL 32.2-35.5 foks=279) RED CELL DISTRIBUTION WIDTH (BEAKER) (test 13.6 % 11.7-14.4 ptka=833) PLATELET COUNT (BEAKER) (test kfpr=940) 210 K/CU MM 150-450 MEAN PLATELET VOLUME (BEAKER) (test mzkh=534) 8.9 fL 9.4-12.3 NUCLEATED RED BLOOD CELLS (BEAKER) (test 0 /100 WBC 0-0 rzjl=013) NEUTROPHILS RELATIVE PERCENT (BEAKER) (test 69 % emty=598) LYMPHOCYTES RELATIVE PERCENT (BEAKER) (test 23 % zbzh=559) MONOCYTES RELATIVE PERCENT (BEAKER) (test 6 % iods=436) EOSINOPHILS RELATIVE PERCENT (BEAKER) (test 1 % plxc=498) BASOPHILS RELATIVE PERCENT (BEAKER) (test 1 % gbhh=357) NEUTROPHILS ABSOLUTE COUNT (BEAKER) (test 4.14 K/ L 1.56-6.13 pbha=971) LYMPHOCYTES ABSOLUTE COUNT (BEAKER) (test 1.38 K/ L 1.18-3.74 xgih=374) MONOCYTES ABSOLUTE COUNT (BEAKER) (test 0.35 K/ L 0.24-0.36 snkg=864) EOSINOPHILS ABSOLUTE COUNT (BEAKER) (test 0.06 K/ L 0.04-0.36 bqnr=310) BASOPHILS ABSOLUTE COUNT (BEAKER) (test 0.05 K/ L 0.01-0.08 ueqk=546) IMMATURE GRANULOCYTES-RELATIVE PERCENT (BEAKER) 0 % 0-1 (test demq=2411) [id number] 10:34:00 Test Item Value Reference Range Comments PHOSPHORUS (BEAKER) (test eodg=837) 1.8 mg/dL 2.3-4.7 [id number] 10:34:00 Test Item Value Reference Range Comments MAGNESIUM (BEAKER) (test rgry=133) 2.4 mg/dL 1.6-2.6 HEPATIC FUNCTION [id number] 10:34:00 Test Item Value Reference Range Comments TOTAL PROTEIN (BEAKER) (test lnul=300) 6.8 gm/dL 6.0-8.3 ALBUMIN (BEAKER) (test hbtd=0280) 4.2 g/dL 3.5-5.0 BILIRUBIN TOTAL (BEAKER) (test nxiq=150) 1.3 mg/dL 0.2-1.2 BILIRUBIN DIRECT (BEAKER) (test iopq=391) 0.7 mg/dL 0.1-0.5 ALKALINE PHOSPHATASE (BEAKER) (test knbp=817) 35 U/L 40-150 AST (SGOT) (BEAKER) (test actq=348) 13 U/L 5-34 ALT (SGPT) (BEAKER) (test yrah=512) 6 U/L 6-55 CREATINE KINASE (CK)2019-02-13 10:34:00 Test Item Value Reference Range Comments CREATINE KINASE TOTAL (BEAKER) (test neiq=025) 37 U/L 29-200 ANTI-NUCLEAR ANTIBODY (CARROL)2019-02-13 10:25:00 Test Item Value Reference Range Comments ANTI-NUCLEAR ANTIBODY (CARROL) (BEAKER) (test Positive Negative iqsk=402) Test performed by IFA method.CARROL TITER AND [id number] 10:25:00 Test Item Value Reference Range Comments CARROL TITER (BEAKER) (test lmpm=1128) :160 CARROL PATTERN (BEAKER) (test tahc=9376) Homogeneous CALCIUM, [id number] 10:17:00 Test Item Value Reference Range Comments CALCIUM IONIZED (BEAKER) (test cxms=005) 1.03 mmol/L 1.12-1.27 PH, BLOOD (BEAKER) (test llfb=5285) 7.51 BODY FLUID CULTURE + GRAM [id number] 12:36:00 Test Item Value Reference Range Comments CULTURE (BEAKER) (test yocr=5453) No growth GRAM STAIN RESULT (BEAKER) (test <1+ White blood cells seen lmgu=6273) GRAM STAIN RESULT (BEAKER) (test No organisms seen rprv=82764) [id number] 09:07:00 Test Item Value Reference Range Comments PHOSPHORUS (BEAKER) (test imnj=613) 2.2 mg/dL 2.3-4.7 [id number] 09:07:00 Test Item Value Reference Range Comments MAGNESIUM (BEAKER) (test eeiy=523) 2.4 mg/dL 1.6-2.6 COMPREHENSIVE METABOLIC [id number] 09:07:00 Test Item Value Reference Range Comments TOTAL PROTEIN (BEAKER) 6.2 gm/dL 6.0-8.3 (test rbmv=623) ALBUMIN (BEAKER) (test 3.7 g/dL 3.5-5.0 batj=0092) ALKALINE PHOSPHATASE 27 U/L 40-150 (BEAKER) (test kify=933) BILIRUBIN TOTAL (BEAKER) 0.8 mg/dL 0.2-1.2 (test wwnk=738) SODIUM (BEAKER) (test 142 meq/L 136-145 tfnn=218) POTASSIUM (BEAKER) (test 3.4 meq/L 3.5-5.1 swef=900) CHLORIDE (BEAKER) (test 111 meq/L 98-107 hnjq=055) CO2 (BEAKER) (test 20 meq/L 22-29 eyxb=046) BLOOD UREA NITROGEN 10 mg/dL 7-21 (BEAKER) (test zmmw=212) CREATININE (BEAKER) (test 2.89 mg/dL 0.57-1.25 iddn=538) GLUCOSE RANDOM (BEAKER) 98 mg/dL 70-105 (test egda=060) CALCIUM (BEAKER) (test 8.5 mg/dL 8.4-10.2 knvk=609) AST (SGOT) (BEAKER) (test 14 U/L 5-34 trzy=190) ALT (SGPT) (BEAKER) (test 6 U/L 6-55 rfrg=965) EGFR (BEAKER) (test 20 mL/min/1.73 sq m ESTIMATED GFR IS NOT qrbg=4065) ACCURATE CREATININE CLEARANCE IN PREDICTING GLOMERULAR FILTRATION RATE. ESTIMATED GFR IS NOT APPLICABLE FOR DIALYSIS PATIENTS. CALCIUM, [id number] 07:28:00 Test Item Value Reference Range Comments CALCIUM IONIZED (BEAKER) (test ieym=468) 1.02 mmol/L 1.12-1.27 PH, BLOOD (BEAKER) (test lnjh=3999) 7.46 CBC W/PLT COUNT & AUTO [id number] 06:55:00 Test Item Value Reference Range Comments WHITE BLOOD CELL COUNT (BEAKER) (test zlkf=048) 5.8 K/ L 3.5-10.5 RED BLOOD CELL COUNT (BEAKER) (test mmte=083) 2.33 M/ L 3.93-5.22 HEMOGLOBIN (BEAKER) (test rqng=570) 7.5 GM/DL 11.2-15.7 HEMATOCRIT (BEAKER) (test basi=788) 23.5 % 34.1-44.9 MEAN CORPUSCULAR VOLUME (BEAKER) (test hquq=143) 100.9 fL 79.4-94.8 MEAN CORPUSCULAR HEMOGLOBIN (BEAKER) (test 32.2 pg 25.6-32.2 mmts=918) MEAN CORPUSCULAR HEMOGLOBIN CONC (BEAKER) (test 31.9 GM/DL 32.2-35.5 tuvw=307) RED CELL DISTRIBUTION WIDTH (BEAKER) (test 13.7 % 11.7-14.4 sskm=082) PLATELET COUNT (BEAKER) (test feuz=145) 183 K/CU MM 150-450 MEAN PLATELET VOLUME (BEAKER) (test drjb=479) 8.3 fL 9.4-12.3 NUCLEATED RED BLOOD CELLS (BEAKER) (test 0 /100 WBC 0-0 ssuu=841) NEUTROPHILS RELATIVE PERCENT (BEAKER) (test 71 % hasa=444) LYMPHOCYTES RELATIVE PERCENT (BEAKER) (test 21 % yazq=219) MONOCYTES RELATIVE PERCENT (BEAKER) (test 6 % vqtr=020) EOSINOPHILS RELATIVE PERCENT (BEAKER) (test 2 % bhfl=129) BASOPHILS RELATIVE PERCENT (BEAKER) (test 1 % fpji=182) NEUTROPHILS ABSOLUTE COUNT (BEAKER) (test 4.13 K/ L 1.56-6.13 khsd=530) LYMPHOCYTES ABSOLUTE COUNT (BEAKER) (test 1.20 K/ L 1.18-3.74 nctd=297) MONOCYTES ABSOLUTE COUNT (BEAKER) (test 0.34 K/ L 0.24-0.36 oatu=770) EOSINOPHILS ABSOLUTE COUNT (BEAKER) (test 0.09 K/ L 0.04-0.36 cxlr=323) BASOPHILS ABSOLUTE COUNT (BEAKER) (test 0.05 K/ L 0.01-0.08 taoa=707) IMMATURE GRANULOCYTES-RELATIVE PERCENT (BEAKER) 0 % 0-1 (test logb=7416) B-TYPE NATRIURETIC FACTOR (BNP)2019-02-11 17:28:00 Test Item Value Reference Range Comments B-TYPE NATRIURETIC PEPTIDE (BEAKER) (test movm=514) 61 pg/mL 0-100 CBC W/PLT COUNT & AUTO [id number] 17:10:00 Test Item Value Reference Range Comments WHITE BLOOD CELL COUNT (BEAKER) (test jdzq=767) 5.8 K/ L 3.5-10.5 RED BLOOD CELL COUNT (BEAKER) (test ktpz=084) 2.27 M/ L 3.93-5.22 HEMOGLOBIN (BEAKER) (test pmat=247) 7.3 GM/DL 11.2-15.7 HEMATOCRIT (BEAKER) (test exun=274) 23.4 % 34.1-44.9 MEAN CORPUSCULAR VOLUME (BEAKER) (test wxxr=183) 103.1 fL 79.4-94.8 MEAN CORPUSCULAR HEMOGLOBIN (BEAKER) (test 32.2 pg 25.6-32.2 wujr=513) MEAN CORPUSCULAR HEMOGLOBIN CONC (BEAKER) (test 31.2 GM/DL 32.2-35.5 zjlh=358) RED CELL DISTRIBUTION WIDTH (BEAKER) (test 14.0 % 11.7-14.4 gtek=979) PLATELET COUNT (BEAKER) (test nzft=238) 204 K/CU MM 150-450 MEAN PLATELET VOLUME (BEAKER) (test gyco=520) 9.8 fL 9.4-12.3 NUCLEATED RED BLOOD CELLS (BEAKER) (test 0 /100 WBC 0-0 wlxo=570) NEUTROPHILS RELATIVE PERCENT (BEAKER) (test 69 % bqzz=952) LYMPHOCYTES RELATIVE PERCENT (BEAKER) (test 21 % bnmh=031) MONOCYTES RELATIVE PERCENT (BEAKER) (test 6 % qlhz=606) EOSINOPHILS RELATIVE PERCENT (BEAKER) (test 2 % mawr=498) BASOPHILS RELATIVE PERCENT (BEAKER) (test 1 % oieg=730) NEUTROPHILS ABSOLUTE COUNT (BEAKER) (test 4.04 K/ L 1.56-6.13 btig=634) LYMPHOCYTES ABSOLUTE COUNT (BEAKER) (test 1.24 K/ L 1.18-3.74 uyco=669) MONOCYTES ABSOLUTE COUNT (BEAKER) (test 0.36 K/ L 0.24-0.36 muwi=019) EOSINOPHILS ABSOLUTE COUNT (BEAKER) (test 0.11 K/ L 0.04-0.36 hzsv=191) BASOPHILS ABSOLUTE COUNT (BEAKER) (test 0.05 K/ L 0.01-0.08 dqxu=455) IMMATURE GRANULOCYTES-RELATIVE PERCENT (BEAKER) 1 % 0-1 (test cqcm=1990) CT, [id number] 16:19:00FINAL REPORT TECHNIQUE: CT of the abdomen [...] Verified Date/Time: 02/11/2019 16: 19:52 Reading Location: [facility] B1 C013Y CT Body Reading Room [facility] METABOLIC [id number] 05:02:00 Test Item Value Reference Range Comments SODIUM (BEAKER) (test 142 meq/L 136-145 eccm=176) POTASSIUM (BEAKER) (test 3.7 meq/L 3.5-5.1 oyik=656) CHLORIDE (BEAKER) (test 113 meq/L 98-107 eqcp=535) CO2 (BEAKER) (test 18 meq/L 22-29 svhc=202) BLOOD UREA NITROGEN 13 mg/dL 7-21 (BEAKER) (test kkfk=143) CREATININE (BEAKER) (test 2.15 mg/dL 0.57-1.25 rrww=347) GLUCOSE RANDOM (BEAKER) 115 mg/dL 70-105 (test eire=819) CALCIUM (BEAKER) (test 8.1 mg/dL 8.4-10.2 aieh=673) EGFR (BEAKER) (test 28 mL/min/1.73 sq m ESTIMATED GFR IS NOT okdd=2399) ACCURATE CREATININE CLEARANCE IN PREDICTING GLOMERULAR FILTRATION RATE. ESTIMATED GFR IS NOT APPLICABLE FOR DIALYSIS PATIENTS. HEPATIC FUNCTION [id number] 04:31:00 Test Item Value Reference Range Comments TOTAL PROTEIN (BEAKER) (test rxfp=372) 5.9 gm/dL 6.0-8.3 ALBUMIN (BEAKER) (test puks=7308) 3.0 g/dL 3.5-5.0 BILIRUBIN TOTAL (BEAKER) (test sify=201) 0.7 mg/dL 0.2-1.2 BILIRUBIN DIRECT (BEAKER) (test qric=351) 0.4 mg/dL 0.1-0.5 ALKALINE PHOSPHATASE (BEAKER) (test entl=638) 34 U/L 40-150 AST (SGOT) (BEAKER) (test hlgv=093) 17 U/L 5-34 ALT (SGPT) (BEAKER) (test iumf=672) 9 U/L 6-55 [id number] 04:30:00 Test Item Value Reference Range Comments PHOSPHORUS (BEAKER) (test pabi=223) 2.5 mg/dL 2.3-4.7 [id number] 04:30:00 Test Item Value Reference Range Comments MAGNESIUM (BEAKER) (test ysvs=149) 1.5 mg/dL 1.6-2.6 CBC W/PLT COUNT & AUTO [id number] 04:04:00 Test Item Value Reference Range Comments WHITE BLOOD CELL COUNT (BEAKER) (test pvyk=740) 6.0 K/ L 3.5-10.5 RED BLOOD CELL COUNT (BEAKER) (test lzam=118) 2.64 M/ L 3.93-5.22 HEMOGLOBIN (BEAKER) (test yrcl=019) 8.3 GM/DL 11.2-15.7 HEMATOCRIT (BEAKER) (test fdzc=193) 27.7 % 34.1-44.9 MEAN CORPUSCULAR VOLUME (BEAKER) (test lpyk=825) 104.9 fL 79.4-94.8 MEAN CORPUSCULAR HEMOGLOBIN (BEAKER) (test 31.4 pg 25.6-32.2 kvvu=845) MEAN CORPUSCULAR HEMOGLOBIN CONC (BEAKER) (test 30.0 GM/DL 32.2-35.5 sllu=850) RED CELL DISTRIBUTION WIDTH (BEAKER) (test 14.1 % 11.7-14.4 jefd=989) PLATELET COUNT (BEAKER) (test iiau=219) 198 K/CU MM 150-450 MEAN PLATELET VOLUME (BEAKER) (test clgp=424) 8.4 fL 9.4-12.3 NUCLEATED RED BLOOD CELLS (BEAKER) (test 0 /100 WBC 0-0 budn=876) NEUTROPHILS RELATIVE PERCENT (BEAKER) (test 66 % wflp=543) LYMPHOCYTES RELATIVE PERCENT (BEAKER) (test 25 % xjzh=136) MONOCYTES RELATIVE PERCENT (BEAKER) (test 6 % ryhk=641) EOSINOPHILS RELATIVE PERCENT (BEAKER) (test 2 % xywx=156) BASOPHILS RELATIVE PERCENT (BEAKER) (test 1 % kjpj=866) NEUTROPHILS ABSOLUTE COUNT (BEAKER) (test 3.90 K/ L 1.56-6.13 xtkl=164) LYMPHOCYTES ABSOLUTE COUNT (BEAKER) (test 1.50 K/ L 1.18-3.74 ctgu=683) MONOCYTES ABSOLUTE COUNT (BEAKER) (test 0.37 K/ L 0.24-0.36 vnuq=062) EOSINOPHILS ABSOLUTE COUNT (BEAKER) (test 0.11 K/ L 0.04-0.36 ieuk=517) BASOPHILS ABSOLUTE COUNT (BEAKER) (test 0.05 K/ L 0.01-0.08 qbwy=067) IMMATURE GRANULOCYTES-RELATIVE PERCENT (BEAKER) 1 % 0-1 (test pbqx=1278) URINALYSIS W/ REFLEX URINE [id number] 21:08:00 Test Item Value Reference Range Comments COLOR (BEAKER) (test esxq=841) Yellow CLARITY (BEAKER) (test uerz=508) Hazy SPECIFIC GRAVITY UA (BEAKER) (test yprz=971) 1.015 1.001-1.035 PH UA (BEAKER) (test ijhw=345) 5.5 5.0-8.0 PROTEIN UA (BEAKER) (test iysm=426) 20 mg/dL Negative GLUCOSE UA (BEAKER) (test qowx=281) Negative Negative KETONES UA (BEAKER) (test gyrk=357) Trace Negative BILIRUBIN UA (BEAKER) (test jdmu=163) Negative Negative BLOOD UA (BEAKER) (test nxda=794) Negative Negative NITRITE UA (BEAKER) (test cscq=832) Negative Negative LEUKOCYTE ESTERASE UA (BEAKER) (test lbjj=226) Large Negative UROBILINOGEN UA (BEAKER) (test bqcy=734) 0.2 mg/dL 0.2-1.0 RBC UA (BEAKER) (test oenf=159) 1 /HPF WBC UA (BEAKER) (test cfii=821) 10 /HPF SQUAMOUS EPITHELIAL (BEAKER) (test csqx=085) 3 /HPF HYALINE CASTS (BEAKER) (test ggwm=020) 2 /LPF CRYSTALS, URINE (BEAKER) (test lbsb=6423) Rare YEAST (BEAKER) (test wddk=6452) Occasional SOURCE(BEAKER) (test uzop=4827) HEPATITIS B SURFACE [id number] 20:13:00 Test Item Value Reference Range Comments HEPATITIS B SURFACE ANTIBODY (BEAKER) (test < mIU/mL <8.0 ifpw=604) HEPATITIS A ANTIBODY, [id number] 20:13:00 Test Item Value Reference Range Comments HEPATITIS A IGG ANTIBODY (BEAKER) (test caav=1074) Reactive Nonreactive HEPATITIS B SURFACE [id number] 20:11:00 Test Item Value Reference Range Comments HEPATITIS B SURFACE ANTIGEN (2) (BEAKER) (test Nonreactive Nonreactive hrwo=8550) HEPATITIS C [id number] 20:11:00 Test Item Value Reference Range Comments HEPATITIS C ANTIBODY (BEAKER) (test gjmd=998) Nonreactive Nonreactive U/S, ABDOMINAL, WITH [id number] 20:08:00Reason for exam:->evaluation for liver disease, other [...] MDReport Verified Date/Time: 02/09/2019 20:08:48 Reading Location: [facility] C013W Consult Reading Room IMMUNOGLOBULIN G (IGG)2019-02-09 19:45:00 Test Item Value Reference Range Comments IMMUNOGLOBULIN G (IGG) (BEAKER) (test jewi=882) 926 mg/dL 540-1,822 [id number] 19:13:00 Test Item Value Reference Range Comments FERRITIN (BEAKER) (test tdib=868) 1896 ng/mL 5-275 BODY FLUID CELL COUNT WITH [id number] 19:01:00 Test Item Value Reference Range Comments APPEARANCE FLUID (BEAKER) (test ctcf=608) Slightly Hazy Clear COLOR FLUID (BEAKER) (test zoca=665) Yellow Colorless, Straw RBC FLUID (BEAKER) (test tzrc=290) 200 /cu mm <=1 ADJUSTED WBC FLUID (BEAKER) (test yyll=4978) 88 /cu mm <=5 LINING CELLS (BEAKER) (test cnqh=3909) 2 /cu mm <=1 NEUTROPHILS FLUID (BEAKER) (test tuuj=5201) 1 % LYMPHS FLUID (BEAKER) (test uivq=985) 57 % MONO/MACROPHAGE FLUID (BEAKER) (test 40 % zslb=969) EOSINOPHILS FLUID (BEAKER) (test mzpq=670) 2 % BASO FLUID (BEAKER) (test gwse=600) 0 % CONTAINER BODY FLUID (BEAKER) (test EDTA Tube yzab=0834) IRON, TIBC, % SAT. (WITHOUT FERRITIN)2019-02-09 18:53:00 Test Item Value Reference Range Comments IRON (BEAKER) (test rtyq=220) 23.0 ug/dL 40.0-160.0 TOTAL IRON BINDING CAPACITY (BEAKER) (test 94 ug/dL 250-450 zacn=530) IRON % SATURATION (2) (BEAKER) (test loah=4078) 24 % 20-55 GAMMA GLUTAMYL TRANSFERASE (GGT)2019-02-09 18:51:00 Test Item Value Reference Range Comments GAMMA GLUTAMYL TRANSFERASE 21 U/L 9-64 Specimen slightly hemolyzed (BEAKER) (test eyjp=807) ALBUMIN, BODY [id number] 18:07:00 Test Item Value Reference Range Comments ALBUMIN FLUID (BEAKER) (test uyzl=880) 2.3 gm/dL Reference Range: No Normals Assay performance has not been validated for this type of specimen.LACTATE DEHYDROGENASE (LDH), BODY [id number] 18:07:00 Test Item Value Reference Range Comments LACTATE DEHYDROGENASE FLUID (BEAKER) (test pkio=945) 288 U/L Absence of reference range indicates that normals have not been defined.Assay performance has not been validated for this type of specimen.RAD, CHEST, 1 VIEW , NON [id number] 17:55:00Reason for exam:->dyspneaShould this be performed at [...] MDReport Verified Date/Time: 02/09/2019 17:55:29 Reading Location: [facility] C013W Consult Reading Room SODIUM, RANDOM [id number] 16:13:00 Test Item Value Reference Range Comments SODIUM URINE (BEAKER) (test ukzy=588) < meq/L Reference Range: No NormalsCREATININE, RANDOM [id number] 16:11:00 Test Item Value Reference Range Comments CREATININE URINE (BEAKER) (test twtq=516) 177.2 mg/dL Reference Range: No NormalsUREA NITROGEN, RANDOM [id number] 16:11:00 Test Item Value Reference Range Comments UREA NITROGEN URINE (BEAKER) (test jhwj=522) 557 mg/dL Reference Range: No [id number] 15:34:00 Test Item Value Reference Range Comments PROCALCITONIN (BEAKER) (test hedr=4907) 0.12 ng/mL <0.05 SEPSIS RISK (ng/mL)Low: 0.05-0.50Intermediate: 0.51-2.00High: & gt;=2.01B-TYPE NATRIURETIC FACTOR (BNP)2019-02-09 15:28:00 Test Item Value Reference Range Comments B-TYPE NATRIURETIC PEPTIDE (BEAKER) (test pqzy=923) 17 pg/mL 0-100 TROPONIN [id number] 15:27:00 Test Item Value Reference Range Comments TROPONIN I (BEAKER) (test urze=517) < ng/mL 0.00-0.03 Troponin I (TnI) levels [...] acute neurological disease, and persistent tachyarrhythmia.HEPATIC FUNCTION [id number] 15:21: 00 Test Item Value Reference Range Comments TOTAL PROTEIN (BEAKER) (test tids=659) 6.3 gm/dL 6.0-8.3 ALBUMIN (BEAKER) (test gllw=1515) 2.9 g/dL 3.5-5.0 BILIRUBIN TOTAL (BEAKER) (test puke=456) 0.9 mg/dL 0.2-1.2 BILIRUBIN DIRECT (BEAKER) (test bqoz=662) 0.5 mg/dL 0.1-0.5 ALKALINE PHOSPHATASE (BEAKER) (test vydy=801) 40 U/L 40-150 AST (SGOT) (BEAKER) (test kujo=635) 19 U/L 5-34 ALT (SGPT) (BEAKER) (test fyxl=935) 12 U/L 6-55 BASIC METABOLIC [id number] 15:21:00 Test Item Value Reference Range Comments SODIUM (BEAKER) (test 143 meq/L 136-145 zwqh=394) POTASSIUM (BEAKER) (test 3.3 meq/L 3.5-5.1 ycjo=096) CHLORIDE (BEAKER) (test 112 meq/L 98-107 ayag=254) CO2 (BEAKER) (test 17 meq/L 22-29 oqub=621) BLOOD UREA NITROGEN 16 mg/dL 7-21 (BEAKER) (test tqaj=676) CREATININE (BEAKER) (test 1.92 mg/dL 0.57-1.25 tuut=485) GLUCOSE RANDOM (BEAKER) 111 mg/dL 70-105 (test lbwm=715) CALCIUM (BEAKER) (test 8.6 mg/dL 8.4-10.2 mgwx=089) EGFR (BEAKER) (test 32 mL/min/1.73 sq m ESTIMATED GFR IS NOT jsbt=3715) ACCURATE CREATININE CLEARANCE IN PREDICTING GLOMERULAR FILTRATION RATE. ESTIMATED GFR IS NOT APPLICABLE FOR DIALYSIS PATIENTS. PROTHROMBIN [id number] 15:17:00 Test Item Value Reference Range Comments PROTIME (BEAKER) (test qouh=853) 16.0 seconds 11.7-14.7 INR (BEAKER) (test sdbl=265) 1.3 <=5.9 RECOMMENDED COUMADIN/WARFARIN INR THERAPY RANGESSTANDARD DOSE: 2.0 - 3.0 Includes: PROPHYLAXIS forvenous thrombosis, systemic embolization; TREATMENT for venous thrombosis and/or pulmonary embolus.HIGH RISK: Target INR is 2.5-3.5 for patients with mechanical heart valves.[id number] 15:17:00 Test Item Value Reference Range Comments FIBRINOGEN LEVEL (BEAKER) (test xoti=700) 718 mg/dl 225-434 CBC W/PLT COUNT & AUTO [id number] 15:15:00 Test Item Value Reference Range Comments WHITE BLOOD CELL COUNT (BEAKER) (test affj=538) 7.0 K/ L 3.5-10.5 RED BLOOD CELL COUNT (BEAKER) (test lgyp=611) 2.80 M/ L 3.93-5.22 HEMOGLOBIN (BEAKER) (test fmxj=418) 9.1 GM/DL 11.2-15.7 HEMATOCRIT (BEAKER) (test bppr=526) 28.5 % 34.1-44.9 MEAN CORPUSCULAR VOLUME (BEAKER) (test cfaz=392) 101.8 fL 79.4-94.8 MEAN CORPUSCULAR HEMOGLOBIN (BEAKER) (test 32.5 pg 25.6-32.2 zkyq=085) MEAN CORPUSCULAR HEMOGLOBIN CONC (BEAKER) (test 31.9 GM/DL 32.2-35.5 arfo=299) RED CELL DISTRIBUTION WIDTH (BEAKER) (test 13.8 % 11.7-14.4 blir=421) PLATELET COUNT (BEAKER) (test kybz=239) 212 K/CU MM 150-450 MEAN PLATELET VOLUME (BEAKER) (test pvbx=370) 9.2 fL 9.4-12.3 NUCLEATED RED BLOOD CELLS (BEAKER) (test 0 /100 WBC 0-0 oqgq=226) NEUTROPHILS RELATIVE PERCENT (BEAKER) (test 70 % hlpc=868) LYMPHOCYTES RELATIVE PERCENT (BEAKER) (test 22 % qmty=335) MONOCYTES RELATIVE PERCENT (BEAKER) (test 5 % xpae=981) EOSINOPHILS RELATIVE PERCENT (BEAKER) (test 1 % ioiq=074) BASOPHILS RELATIVE PERCENT (BEAKER) (test 1 % jgri=218) NEUTROPHILS ABSOLUTE COUNT (BEAKER) (test 4.92 K/ L 1.56-6.13 ieps=862) LYMPHOCYTES ABSOLUTE COUNT (BEAKER) (test 1.58 K/ L 1.18-3.74 qxuf=891) MONOCYTES ABSOLUTE COUNT (BEAKER) (test 0.35 K/ L 0.24-0.36 pomj=868) EOSINOPHILS ABSOLUTE COUNT (BEAKER) (test 0.09 K/ L 0.04-0.36 avhp=032) BASOPHILS ABSOLUTE COUNT (BEAKER) (test 0.07 K/ L 0.01-0.08 zryu=571) IMMATURE GRANULOCYTES-RELATIVE PERCENT (BEAKER) 0 % 0-1 (test evjv=5547) LACTIC ACID, [id number] 15:15:00 Test Item Value Reference Range Comments LACTATE BLOOD VENOUS (2) 1.3 mmol/L 0.5-2.2 Specimen moderately hemolyzed (BEAKER) (test cevr=5645) [id number] 15:14:00 Test Item Value Reference Range Comments AMMONIA (BEAKER) (test 17 mol/L 18-72 Specimen moderately hemolyzed ijjn=449) [id number] 14:17:00Medical Cytology Report Case: [id number] Authorizing Provider: Mary Elizondo MD Collected: 02/01/2019 1654 Ordering Location: [address] Received: 02/02/2019 0857 Service Pathologist: Cherri [...] - HER 2 OVER-EXPRESSION: NEGATIVE (SCORE: 0)PB: 82945 X3, 62803 CAP REGULATION: FIXATION TIME FOR BIOMARKERS ASSESSMENTCollection [...] and Ki67 were assessed using clones SP1 ([facility] ), 1294 (DAKO), 4B5 (FDA Approved [facility]) and 30-9 ([facility]) respectively. Control Slides Examined: In-house known ER, RI, HER2 and Ki67 positive controls were evaluated along with test tissue. These control slides run alongside of the patients sample show appropriate staining. Internal controls when available are evaluated.Interpretive Criteria: The staining results according to the ASCO/CAP guidelines for HER2 (Jaylen AC et al. Arch Pathol Lab Med December 29) and ER/RI (Yvette HERNÁNDEZ et al. Arch Pathol Lab Med 2010; 134:e48-e72) by ASCO/CAP guidelines.ER and RI "positive" requires greater or equal to 1% [...] equal to 10% of tumor cells. The ER/RI Proportion Score indicates the proportion of positive [...] 2002). Immunohistochemistry technical testing was performed at [facility], Pathology Laboratory where it was [...] (SEE COMMENT) Signing Pathologist Direct Phone Line: [phone] signed by Cherri Covington MD on 02/07/2019 at 4:06 PMThe peritoneal fluid shows few atypical cells,scattered mostly singly. These cells are positive for MOC-31, Irwin -EP4 and MAYUR-3. GCDFP is negative.Calretinin and WT-1 highlight mesothelial cells. The immunoprofile is compatible with patient's history of breast primaryAn addendm report will follow with the results of the biomarkers.59738, 78515; 20114; 83573 x 5Ascites, history of of breast cancer (dx 2010 s/p chemoXRT, lumpectomy)PERITONEAL PBTYE2900 mls yellow; 4 cytospins, cell blockCollected: 238187Kwyxiabf: 725142TvullphpwzabDqu interpretation of this case included the use of immunohistochemistry or special stains. Calretinin; WT- 1; MAYUR-3; GCDFP; MOC-31 AND IRWIN-NS4Kdaogiargegmcdpfrdvh technical testing was performed at [facility], Pathology Laboratory where it was [...] qualified to perform high complexity clinical laboratory testing.[facility], Department of Pathology, [address] [place] [address], Tel [facility], [facility], [address] [place] [address], [facility], [address] [place] [address], Tel STOOL CULTURE + SHIGA [id number] 00:23:00 Test Item Value Reference Range Comments CULTURE (BEAKER) (test No Salmonella, Shigella or lzsw=2911) Campylobacter isolated SHIGA TOXIN [id number] 10:46:00 Test Item Value Reference Range Comments SHIGA TOXIN 1 (BEAKER) (test wigp=9322) Not detected Not detected SHIGA TOXIN 2 (BEAKER) (test bsva=2924) Not detected Not detected Resubmit new specimen if clinically indicated.BODY FLUID CULTURE + GRAM [id number] 08:40:00 Test Item Value Reference Range Comments CULTURE (BEAKER) (test dvhy=7246) No growth GRAM STAIN RESULT (BEAKER) (test 1+ WBCs gova=9741) GRAM STAIN RESULT (BEAKER) (test No organisms seen hfjq=40638) STOOL PATH [id number] 11:26:00 Test Item Value Reference Range Comments PATHOGEN EXAM CHARGED (BEAKER) (test iqrt=7606) Done C. DIFFICILE GDH [id number] 17:05:00 Test Item Value Reference Range Comments CDT TOXIN (test Negative Negative oidp=[id number]) CDT GDH ANTIGEN (test Negative Negative No indication of Clostridium omup=[id number]) difficile infection and no colonization. Discontinue enteric isolation and therapy. Testing performed by [employer] Rapid Cassette Assay. For GDH, published sensitivity of the assay is 98.7% compared to cytotoxicity testing. For Toxin AB, published sensitivity is 87.8% and specificity 99.4% compared to cytotoxicity testing.Verification of kit performance was done by the [facility] Microbiology Lab prior to clinical use.[id number] 13:10:00 Test Item Value Reference Range Comments MAGNESIUM (BEAKER) (test qnrg=579) 1.9 mg/dL 1.6-2.6 BASIC METABOLIC [id number] 13:10:00 Test Item Value Reference Range Comments SODIUM (BEAKER) (test 139 meq/L 136-145 prjp=712) POTASSIUM (BEAKER) (test 4.0 meq/L 3.5-5.1 bkey=687) CHLORIDE (BEAKER) (test 110 meq/L 98-107 icas=505) CO2 (BEAKER) (test 21 meq/L 22-29 ebsw=423) BLOOD UREA NITROGEN 21 mg/dL 7-21 (BEAKER) (test faej=541) CREATININE (BEAKER) (test 1.34 mg/dL 0.57-1.25 kjmc=081) GLUCOSE RANDOM (BEAKER) 112 mg/dL 70-105 (test tjka=807) CALCIUM (BEAKER) (test 8.5 mg/dL 8.4-10.2 vwon=142) EGFR (BEAKER) (test 49 mL/min/1.73 sq m ESTIMATED GFR IS NOT ronk=1298) ACCURATE CREATININE CLEARANCE IN PREDICTING GLOMERULAR FILTRATION RATE. ESTIMATED GFR IS NOT APPLICABLE FOR DIALYSIS PATIENTS. HEPATIC FUNCTION [id number] 13:10:00 Test Item Value Reference Range Comments TOTAL PROTEIN (BEAKER) (test rtxe=319) 6.2 gm/dL 6.0-8.3 ALBUMIN (BEAKER) (test xcgm=4177) 2.7 g/dL 3.5-5.0 BILIRUBIN TOTAL (BEAKER) (test neni=477) 0.5 mg/dL 0.2-1.2 BILIRUBIN DIRECT (BEAKER) (test evhn=724) 0.2 mg/dL 0.1-0.5 ALKALINE PHOSPHATASE (BEAKER) (test otic=386) 36 U/L 40-150 AST (SGOT) (BEAKER) (test iobk=944) 16 U/L 5-34 ALT (SGPT) (BEAKER) (test mcdc=273) 10 U/L 6-55 CBC W/PLT COUNT & AUTO [id number] 12:41:00 Test Item Value Reference Range Comments WHITE BLOOD CELL COUNT (BEAKER) (test auar=505) 6.6 K/ L 3.5-10.5 RED BLOOD CELL COUNT (BEAKER) (test xalu=607) 2.65 M/ L 3.93-5.22 HEMOGLOBIN (BEAKER) (test vese=753) 8.6 GM/DL 11.2-15.7 HEMATOCRIT (BEAKER) (test rvws=641) 28.1 % 34.1-44.9 MEAN CORPUSCULAR VOLUME (BEAKER) (test yrwn=814) 106.0 fL 79.4-94.8 MEAN CORPUSCULAR HEMOGLOBIN (BEAKER) (test 32.5 pg 25.6-32.2 waxx=280) MEAN CORPUSCULAR HEMOGLOBIN CONC (BEAKER) (test 30.6 GM/DL 32.2-35.5 piji=767) RED CELL DISTRIBUTION WIDTH (BEAKER) (test 13.6 % 11.7-14.4 zqke=578) PLATELET COUNT (BEAKER) (test utus=684) 285 K/CU MM 150-450 MEAN PLATELET VOLUME (BEAKER) (test sqde=454) 8.3 fL 9.4-12.3 NUCLEATED RED BLOOD CELLS (BEAKER) (test 0 /100 WBC 0-0 fgfe=739) NEUTROPHILS RELATIVE PERCENT (BEAKER) (test 71 % zhpf=811) LYMPHOCYTES RELATIVE PERCENT (BEAKER) (test 22 % miro=607) MONOCYTES RELATIVE PERCENT (BEAKER) (test 6 % tiub=735) EOSINOPHILS RELATIVE PERCENT (BEAKER) (test 0 % wvjm=562) BASOPHILS RELATIVE PERCENT (BEAKER) (test 1 % lqnk=593) NEUTROPHILS ABSOLUTE COUNT (BEAKER) (test 4.68 K/ L 1.56-6.13 zjpi=357) LYMPHOCYTES ABSOLUTE COUNT (BEAKER) (test 1.43 K/ L 1.18-3.74 izjm=972) MONOCYTES ABSOLUTE COUNT (BEAKER) (test 0.39 K/ L 0.24-0.36 eqab=106) EOSINOPHILS ABSOLUTE COUNT (BEAKER) (test 0.02 K/ L 0.04-0.36 abug=931) BASOPHILS ABSOLUTE COUNT (BEAKER) (test 0.03 K/ L 0.01-0.08 ugyi=703) IMMATURE GRANULOCYTES-RELATIVE PERCENT (BEAKER) 1 % 0-1 (test zosp=9847) U/S, ABDOMINAL, WITH [id number] 10:51:00Reason for exam:->ascites, evaluate for PVTFINAL REPORT [...] Vahid Espinozaeport Verified Date/Time: 10:51:26 Reading Location: [address] Ultrasound Reading Room BODY FLUID CELL COUNT WITH [id number] 19:54:00 Test Item Value Reference Range Comments APPEARANCE FLUID (BEAKER) (test yjld=775) Slightly Hazy Clear COLOR FLUID (BEAKER) (test hadr=831) Yellow Colorless, Straw RBC FLUID (BEAKER) (test wszv=110) 262 /cu mm <=1 ADJUSTED WBC FLUID (BEAKER) (test ygiq=8940) 93 /cu mm <=5 LINING CELLS (BEAKER) (test lzgy=8391) 4 /cu mm <=1 NEUTROPHILS FLUID (BEAKER) (test bzkz=4706) 1 % LYMPHS FLUID (BEAKER) (test ybhg=155) 14 % MONO/MACROPHAGE FLUID (BEAKER) (test 85 % lvzv=736) EOSINOPHILS FLUID (BEAKER) (test voqx=280) 0 % BASO FLUID (BEAKER) (test cjbu=285) 0 % CONTAINER BODY FLUID (BEAKER) (test EDTA Tube bmkp=0399) ALBUMIN, BODY [id number] 18:05:00 Test Item Value Reference Range Comments ALBUMIN FLUID (BEAKER) (test szbk=166) 2.6 gm/dL Reference Range: No Normals Assay performance has not been validated for this type of specimen.PROTEIN, BODY [id number] 18:05:00 Test Item Value Reference Range Comments PROTEIN FLUID (BEAKER) (test prqx=659) 4.6 g/dL Absence of reference range indicates that normals have not been defined.Assay performance has not been validated for this type of specimen.U/S, [id number] 17:07:00Reason for exam:->ascites of unclear etiology , [...] sterile technique, ultrasound guidance and a 5 [place] coaxial needle, a single pass right lower [...] MDReport Verified Date/Time: 02/01/2019 17:07:23 Reading Location: [place] [id number] Ultrasound Reading Room [id number] 12:56:00 Test Item Value Reference Range Comments MAGNESIUM (BEAKER) (test mkms=701) 2.2 mg/dL 1.6-2.6 BASIC METABOLIC [id number] 12:56:00 Test Item Value Reference Range Comments SODIUM (BEAKER) (test 142 meq/L 136-145 knky=621) POTASSIUM (BEAKER) (test 4.3 meq/L 3.5-5.1 hrie=039) CHLORIDE (BEAKER) (test 108 meq/L 98-107 hidm=341) CO2 (BEAKER) (test 24 meq/L 22-29 alwd=590) BLOOD UREA NITROGEN 22 mg/dL 7-21 (BEAKER) (test udxs=839) CREATININE (BEAKER) (test 1.72 mg/dL 0.57-1.25 mpsz=843) GLUCOSE RANDOM (BEAKER) 139 mg/dL 70-105 (test esuu=648) CALCIUM (BEAKER) (test 9.1 mg/dL 8.4-10.2 icgl=880) EGFR (BEAKER) (test 36 mL/min/1.73 sq m ESTIMATED GFR IS NOT sytd=6520) ACCURATE CREATININE CLEARANCE IN PREDICTING GLOMERULAR FILTRATION RATE. ESTIMATED GFR IS NOT APPLICABLE FOR DIALYSIS PATIENTS. HEPATIC FUNCTION [id number] 12:56:00 Test Item Value Reference Range Comments TOTAL PROTEIN (BEAKER) (test jdwo=244) 7.0 gm/dL 6.0-8.3 ALBUMIN (BEAKER) (test fzay=7230) 3.1 g/dL 3.5-5.0 BILIRUBIN TOTAL (BEAKER) (test kplb=323) 0.6 mg/dL 0.2-1.2 BILIRUBIN DIRECT (BEAKER) (test pnat=520) 0.4 mg/dL 0.1-0.5 ALKALINE PHOSPHATASE (BEAKER) (test npyo=500) 42 U/L 40-150 AST (SGOT) (BEAKER) (test pjov=438) 15 U/L 5-34 ALT (SGPT) (BEAKER) (test dyvs=155) 10 U/L 6-55 PROTHROMBIN [id number] 12:51:00 Test Item Value Reference Range Comments PROTIME (BEAKER) (test nrlz=420) 16.5 seconds 11.7-14.7 INR (BEAKER) (test ihtv=557) 1.3 <=5.9 RECOMMENDED COUMADIN/WARFARIN INR THERAPY RANGESSTANDARD DOSE: 2.0 - 3.0 Includes: PROPHYLAXIS forvenous thrombosis, systemic embolization; TREATMENT for venous thrombosis and/or pulmonary embolus.HIGH RISK: Target INR is 2.5-3.5 for patients with mechanical heart valves.CBC (HEMOGRAM ONLY)2019-02-01 12:38:00 Test Item Value Reference Range Comments WHITE BLOOD CELL COUNT (BEAKER) (test jgdd=895) 9.6 K/ L 3.5-10.5 RED BLOOD CELL COUNT (BEAKER) (test vbel=795) 2.77 M/ L 3.93-5.22 HEMOGLOBIN (BEAKER) (test nngt=715) 9.1 GM/DL 11.2-15.7 HEMATOCRIT (BEAKER) (test awxk=932) 28.9 % 34.1-44.9 MEAN CORPUSCULAR VOLUME (BEAKER) (test ktpx=677) 104.3 fL 79.4-94.8 MEAN CORPUSCULAR HEMOGLOBIN (BEAKER) (test 32.9 pg 25.6-32.2 rzhr=238) MEAN CORPUSCULAR HEMOGLOBIN CONC (BEAKER) (test 31.5 GM/DL 32.2-35.5 hgqv=099) RED CELL DISTRIBUTION WIDTH (BEAKER) (test 13.7 % 11.7-14.4 wlyk=773) PLATELET COUNT (BEAKER) (test dkam=822) 318 K/CU MM 150-450 MEAN PLATELET VOLUME (BEAKER) (test lzvx=273) 8.3 fL 9.4-12.3 NUCLEATED RED BLOOD CELLS (BEAKER) (test 0 /100 WBC 0-0 tyhg=182)
--- NOTE | 2020-01-08 11:23 | RAD REPORT ---
EXAM DESCRIPTION: RAD - Chest Single View - 01/08/2020 10:58 am CLINICAL HISTORY: CHEST PAIN COMPARISON: Chest Single View dated 11/23/2019; Chest Abdomen W Con dated 12/06/2019 TECHNIQUE: AP portable chest image was obtained 01/08/2020 10:58 am . FINDINGS: Lung volumes are low but similar to comparison. Chronic left base pleural and parenchymal opacification have not changed. Right-side access catheter has not changed. Heart and vasculature are normal. No pneumothorax. No right-sided pleural effusion. No acute bony abnormality seen. No acute a ortic findings suspected. IMPRESSION: Chronic left base pleural and parenchymal opacification similar to comparison studies. No new or progressive finding.
[2020-01-08 11:25] LABS: Absolute Lymphocytes (CBC) 1.8 K/uL (0.7-4.9); Hematocrit 37.2 % (36.0-45.0); Lymphocytes % 28.6 % (15.3-44.8); MPV 7.2 fL (7.6-11.3); RBC Red Blood Cell Count 3.83 M/uL (3.86-4.86)
[2020-01-08 11:27] LABS: Arterial Blood Carboxyhemoglob 1.1 % (0-1.5); Blood Gas Oxyhemoglobin 67.6 % (94-97)
[2020-01-08 11:27] LABS: Protime INR 1.11
[2020-01-08 11:44] LABS: ALT/SGPT 12 U/L (12-78); AST/SGOT 20 U/L (15-37); Albumin 2.8 g/dL (3.4-5.0); Alkaline Phosphatase 68 U/L (45-117); BUN Blood Urea Nitrogen 9 mg/dL (7-18); Bicarbonate 22 mmol/L (21-32); Bilirubin Direct 0.2 mg/dL (0-0.2); Bilirubin Total 0.6 mg/dL (0.2-1.0); Glucose Level 101 mg/dL (74-106); Magnesium 1.9 mg/dL (1.8-2.4); NT PRO-BNP 51 pg/mL (<125); Potassium 3.6 mmol/L (3.5-5.1); Protein, Total 6.9 g/dL (6.4-8.2); Sodium Level 139 mmol/L (136-145); Troponin (Emerg Dept Use Only) < 0.02 ng/mL (0.0-0.045)
[2020-01-08] MEDS ORDERED: LORazepam 2 MG/ML VIAL ONE (12:08)
[2020-01-08] MEDS ORDERED: NA CHLORIDE 0.9% 500 ML ONE ×2 (13:00→14:25)
--- NOTE | 2020-01-08 15:32 | EKG ---
Test Date: 2020-01-08 Test Time: 10:24:55 Marketing Research Coordinator: DOUGLAS MEASUREMENT RESULTS: Intervals: Rate: 113 IA: 140 QRSD: 74 QT: 338 QTc: 463 [place]: P: 42 IA: 140 QRS: 46 T: 27 INTERPRETIVE STATEMENTS: Sinus tachycardia Otherwise normal ECG Compared to ECG 04/01/2019 13:34:53 No significant changes Electronically Signed On 01-08-20 15:32:10 RESIDENTIAL SALES EXECUTIVE by Jean-Paul Calderon
--- NOTE | 2020-01-08 15:34 | EDPHYS ---
Physician Documentation [facility] Name: Angie Spring Age: 64 yrs Sex: Female : 1955 Arrival Date: 01/08/2020 Time: 10:02 Bed 7 Private MD: Michelle Pollard ED Physician Vidal Espinal HPI: 01/07 10:45 This 64 yrs old Black Female presents to ER via Ambulatory with complaints of Chest snw Pain. 10:45 The patient or guardian reports chest pain that is located primarily in the anterior snw chest wall, bilaterally. Onset: 3 day(s) ago, and became persistent. The pain does not radiate. Associated signs and symptoms: Pertinent positives: nausea, shortness of breath. The chest pain is described as a pressure. Duration: The patient or guardian reports a single episode, that is still ongoing. Modifying factors: The symptoms are alleviated by breast ca, on chemo, paracentesis recently. Severity of pain: At its worst the pain was moderate. It is unknown whether or not the patient has had similar symptoms in the past. The patient has been recently seen by a physician: a dairy equipment mechanic, an oncologist. Historical: - Allergies: 10:20 No Known Allergies; ss - PMHx: 10:20 ascites; breast cancer; Currently on Chemo; fluid around lungs; Hypertension; ss lymphedema; - PSHx: 10:20 Right lumpectomy; partial throidectomy; ss - Immunization history:: Adult Immunizations up to date. - Social history:: Smoking status: Patient denies any tobacco usage or history of. ROS: 10:43 Constitutional: Negative for fever, chills, and weight loss, Eyes: Negative for injury, snw pain, redness, and discharge, ENT: Negative for injury, pain, and discharge, Neck: Negative for injury, pain, and swelling. 10:43 Respiratory: Negative for shortness of breath, cough, wheezing, and pleuritic chest pain, Abdomen/GI: Negative for abdominal pain, nausea, vomiting, diarrhea, and constipation, Back: Negative for injury and pain, : Negative for injury, bleeding, discharge, and swelling, MS/Extremity: Negative for injury and deformity, Skin: Negative for injury, rash, and discoloration, Neuro: Negative for headache, weakness, numbness, tingling, and seizure, Psych: Negative for depression, anxiety, suicide ideation, homicidal ideation, and hallucinations. 10:43 Cardiovascular: Positive for chest pain. Exam: 10:41 Head/Face: Normocephalic, atraumatic. Eyes: Pupils equal round and reactive to light, snw extra-ocular motions intact. Lids and lashes normal. Conjunctiva and sclera are non-icteric and not injected. Cornea within normal limits. Periorbital areas with no swelling, redness, or edema. ENT: Nares patent. No nasal discharge, no septal abnormalities noted. Tympanic membranes are normal and external auditory canals are clear. Oropharynx with no redness, swelling, or masses, exudates, or evidence of obstruction, uvula midline. Mucous membranes moist. Neck: Trachea midline, no thyromegaly or masses palpated, and no cervical lymphadenopathy. Supple, full range of motion without nuchal rigidity, or vertebral point tenderness. No Meningismus. Chest/axilla: Normal chest wall appearance and motion. Nontender with no deformity. No lesions are appreciated. 10:41 Back: No spinal tenderness. No costovertebral tenderness. Full range of motion. Skin: Warm, dry with normal turgor. Normal color with no rashes, no lesions, and no evidence of cellulitis. MS/ Extremity: Pulses equal, no cyanosis. Neurovascular intact. Full, normal range of motion. Neuro: Awake and alert, GCS 15, oriented to person, place, time, and situation. Cranial nerves II-XII grossly intact. Motor strength 5/5 in all extremities. Sensory grossly intact. Cerebellar exam normal. Normal gait. Psych: Awake, alert, with orientation to person, place and time. Behavior, mood, and affect are within normal limits. 10:41 Constitutional: The patient appears alert, awake. 10:41 Cardiovascular: Rate: tachycardic, Rhythm: regular, Pulses: no pulse deficits are appreciated, Heart sounds: normal. 10:41 Respiratory: the patient does not display signs of respiratory distress, Respirations: shallow respirations, that is moderate, Breath sounds: bowel sounds throughout. 10:41 Abdomen/GI: Inspection: obese Bowel sounds: hyperactive, Palpation: mild abdominal tenderness, in the right upper quadrant and left upper quadrant. 10:55 ECG was reviewed by the Attending Physician. sn Vital Signs: 10:15 BP 114 / 94; Pulse 118; Resp 17; Temp 97.0(TE); Pulse Ox 98% on R/A; Weight 86.18 kg; ss Height 5 ft. 7 in. (170.18 cm); Pain 5/10; 11:29 BP 95 / 60; Pulse 110; Resp 18; Pulse Ox 99% on R/A; ph 12:47 BP 85 / 73; Pulse 118; Resp 20; Pulse Ox 94% on R/A; ph 13:42 BP 107 / 79; Pulse 115; Resp 20; Temp 97.8(O); Pulse Ox 97% on R/A; ph 15:16 BP 112 / 84; Pulse 109; Resp 18; Pulse Ox 100% on R/A; ph 10:15 Body Mass Index 29.76 (86.18 kg, 170.18 cm) ss MDM: 10:33 Patient medically screened. aminata 10:41 ALEKS Risk Score: 1 - Recent [<24hrs] Severe Angina. Data reviewed: vital signs, nurses snw notes. Data interpreted: Pulse oximetry: on room air is 98 %. Interpretation: normal. 14:36 ECG:. The patient was not given aspirin in the Emergency Department. Not indicated due snw to patient's past medical history. 14:37 Special discussion: Based on the history and exam findings, there is no indication for snw further emergent testing or inpatient evaluation. I discussed with the patient/guardian the need to see the dairy equipment mechanic/oncologist for further evaluation of the symptoms. I discussed with the patient/guardian the need to see the primary care provider for further evaluation of the symptoms. ED course: Pt feeling better, awaiting fluid bolus completion for discharge. 01/07 10:30 Order name: Basic Metabolic Panel; Complete Time: 11:47 snw 01/07 10:30 Order name: CBC with Diff; Complete Time: 11:32 snw 01/07 10:30 Order name: LFT's; Complete Time: 11:47 snw 01/07 10:30 Order name: Magnesium; Complete Time: 11:47 snw 01/07 10:30 Order name: NT PRO-BNP; Complete Time: 11:47 snw 01/07 10:30 Order name: PT-INR; Complete Time: 11:32 snw 01/07 10:30 Order name: Troponin (emerg Dept Use Only); Complete Time: 11:47 snw 01/07 10:30 Order name: XRAY Chest (1 view); Complete Time: 11:30 snw 01/07 10:31 Order name: ABG: venous blood gas; Complete Time: 11:31 snw 01/07 10:31 Order name: TS; Complete Time: 14:33 snw 01/07 12:36 Order name: Antibody Identification; Complete Time: 14:33 EDMS 01/07 13:31 Order name: ABO/RH no charge; Complete Time: 13:33 EDMS 01/07 14:08 Order name: Antigen type; Complete Time: 14:33 EDMS 01/07 10:30 Order name: EKG; Complete Time: 10:31 snw 01/07 10:30 Order name: Cardiac monitoring; Complete Time: 10:39 snw 01/07 10:30 Order name: EKG - Nurse/Tech; Complete Time: 13:14 snw 01/07 10:30 Order name: IV Saline Lock; Complete Time: 11:29 snw 01/07 10:30 Order name: Labs collected and sent; Complete Time: 11:29 snw 01/07 10:30 Order name: O2 Per Protocol; Complete Time: 11:29 snw 01/07 10:30 Order name: O2 Sat Monitoring; Complete Time: 11:29 snw 01/07 11:51 Order name: Labs - recollect needed: collect abo/rh no charge; Complete Time: 12:14 bd Administered Medications: 12:13 Drug: Ativan 1 mg Route: IVP; Site: Port-a-cath; ph 13:00 Follow up: Response: No adverse reaction; Anxiety decreased ph 13:00 Drug: NS 0.9% 500 ml Route: IV; Rate: bolus; Site: Port-a-cath; ph 15:50 Follow up: Response: No adverse reaction; IV Status: Completed infusion; IV Intake: ph 1000ml Disposition: 16:48 Co-signature as Attending Physician, Vidal Espinal MD I agree with the assessment and aminata plan of care. Disposition: 01/08/20 15:33 Discharged to Home. Impression: Chest pain, unspecified, Dehydration. - Condition is Stable. - Discharge Instructions: Nonspecific Chest Pain, Dehydration, Adult, Rehydration, Adult. - Prescriptions for orphenadrine citrate 100 mg Oral Tablet Sustained Release - take 1 tablet by ORAL route 2 times per day As needed; 20 tablet. - Medication Reconciliation Form, Thank You Letter, Antibiotic Education, Prescription Opioid Use form. - Follow up: Emergency Department; When: As needed; Reason: Worsening of condition. Follow up: Michelle Pollard MD; When: 1 - 2 days; Reason: Recheck today's complaints, Continuance of care, Re-evaluation by your physician. Signatures: Dispatcher [employer] Galina Isaacs Corey, MD MD cha Therrien, Shelly, CORDUROY CUTTING SUPERVISOR-C CORDUROY CUTTING SUPERVISOR-Csnw Pearl Pekc RN RN ss Iman May RN RN ph Corrections: (The following items were deleted from the chart) 16:05 15:33 01/08/2020 15:33 Discharged to Home. Impression: Chest pain, unspecified; ph Dehydration. Condition is Stable. Forms are Medication Reconciliation Form, Thank You Letter, Antibiotic Education, Prescription Opioid Use. Follow up: Emergency Department; When: As needed; Reason: Worsening of condition. Follow up: Michelle Pollard; When: 1 - 2 days; Reason: Recheck today's complaints, Continuance of care, Re-evaluation by your physician. snw
--- NOTE | 2020-01-08 15:34 | ER ---
Nurse's Notes [facility] Name: Angie Spring Age: 64 yrs Sex: Female : 1955 Arrival Date: 01/08/2020 Time: 10:02 Bed 7 Private MD: Michelle Pollard Diagnosis: Chest pain, unspecified;Dehydration Presentation: 01/07 10:17 Chief complaint: Patient states: chest pain x several days with fatigue/ generalized ss weakness. Pt reports that she is currently undergoing chemotherapy and was sent to ER for further evaluation of chest pain by Dr. Baker. Coronavirus screen: The patient has NOT traveled to [place] in the past 14 days. Proceed with normal triage procedures. Ebola Screen: Patient denies exposure to infectious person. Patient denies travel to an Ebola-affected area in the 21 days before illness onset. Initial Sepsis Screen: Does the patient meet any 2 criteria? HR > 90 bpm. Does the patient have a suspected source of infection? No. Patient's initial sepsis screen is negative. Risk Assessment: Do you want to hurt yourself or someone else? Patient reports no desire to harm self or others. 10:17 Acuity: KAT 2 ss 10:17 Method Of Arrival: Ambulatory ss Historical: - Allergies: 10:20 No Known Allergies; ss - PMHx: 10:20 ascites; breast cancer; Currently on Chemo; fluid around lungs; Hypertension; ss lymphedema; - PSHx: 10:20 Right lumpectomy; partial throidectomy; ss - Immunization history:: Adult Immunizations up to date. - Social history:: Smoking status: Patient denies any tobacco usage or history of. Screenin:46 Abuse screen: Denies threats or abuse. Denies injuries from another. Nutritional ph screening: No deficits noted. Tuberculosis screening: No symptoms or risk factors identified. Fall Risk None identified. Assessment: 10:30 General: Appears in no apparent distress. uncomfortable, well groomed, Behavior is ph cooperative, appropriate for age, anxious, Reports fatigue for >3 days, Denies fever. Pain: Complains of pain in chest Pain does not radiate. Pain began 2-3 days ago. Neuro: Level of Consciousness is awake, alert, obeys commands, Oriented to person, place, time, situation, Reports weakness in "all over". Cardiovascular: Reports chest pain, fatigue, Denies nausea, syncope, Capillary refill < 3 seconds in bilateral fingers Patient's skin is warm and dry. Respiratory: Airway is patent Respiratory effort is even, unlabored, Respiratory pattern is regular, symmetrical. Derm: Skin is intact, Skin is pink, warm \\T\\ dry. Musculoskeletal: Circulation, motion, and sensation intact. Range of motion: intact in all extremities. 12:00 Reassessment: Patient appears in no apparent distress at this time. Patient and/or ph family updated on plan of care and expected duration. Pain level reassessed. Patient is alert, oriented x 3, equal unlabored respirations, skin warm/dry/pink. Pt yelling for help, states, " My anxiety is up and I need my medicine!" Pt appears anxious, states that she takes anxiety medication at home but does not recall the name, ERP notified, see MAR. 13:00 Reassessment: Patient appears in no apparent distress at this time. Patient and/or ph family updated on plan of care and expected duration. Pain level reassessed. Patient is alert, oriented x 3, equal unlabored respirations, skin warm/dry/pink. 14:00 Reassessment: Patient appears in no apparent distress at this time. Patient and/or ph family updated on plan of care and expected duration. Pain level reassessed. Patient is alert, oriented x 3, equal unlabored respirations, skin warm/dry/pink. 15:00 Reassessment: Patient appears in no apparent distress at this time. Patient and/or ph family updated on plan of care and expected duration. Pain level reassessed. Patient is alert, oriented x 3, equal unlabored respirations, skin warm/dry/pink. Vital Signs: 10:15 BP 114 / 94; Pulse 118; Resp 17; Temp 97.0(TE); Pulse Ox 98% on R/A; Weight 86.18 kg; ss Height 5 ft. 7 in. (170.18 cm); Pain 5/10; 11:29 BP 95 / 60; Pulse 110; Resp 18; Pulse Ox 99% on R/A; ph 12:47 BP 85 / 73; Pulse 118; Resp 20; Pulse Ox 94% on R/A; ph 13:42 BP 107 / 79; Pulse 115; Resp 20; Temp 97.8(O); Pulse Ox 97% on R/A; ph 15:16 BP 112 / 84; Pulse 109; Resp 18; Pulse Ox 100% on R/A; ph 10:15 Body Mass Index 29.76 (86.18 kg, 170.18 cm) ED Course: 10:02 Patient arrived in ED. mr 10:02 Michelle Pollard MD is Private Physician. mr 10:15 Arm band placed on right wrist. ss 10:19 Triage completed. ss 10:25 EKG done, by ED staff, reviewed by Vidal Espinal MD. dh3 10:31 Keesha Garcia FNP-C is PHCP. snw 10:31 Vidal Espinal MD is Attending Physician. snw 10:36 Iman May, SEVERIANO is Primary Nurse. ph 11:00 XRAY Chest (1 view) In Process Unspecified. EDMS 11:05 No provider procedures requiring assistance completed. Accessed Port-a-Cath. using ph accessed w/ # 20 Herrera needle, ,sterile technique, per hospital protocol. Clean \\T\\ dry. Dressing intact. Good blood return. Flushes easily. Patient maintains SpO2 saturation greater than 95% on room air. 12:45 Patient has correct armband on for positive identification. Placed in gown. Bed in low ph position. Call light in reach. Side rails up X2. phototypesetting equipment monitor on. Pulse ox on. NIBP on. Door closed. Noise minimized. Lights dimmed. Warm blanket given. Head of bed lowered. 15:32 Michelle Pollard MD is Referral Physician. snw 16:00 IV discontinued, intact, bleeding controlled. ph Administered Medications: 12:13 Drug: Ativan 1 mg Route: IVP; Site: Port-a-cath; ph 13:00 Follow up: Response: No adverse reaction; Anxiety decreased ph 13:00 Drug: NS 0.9% 500 ml Route: IV; Rate: bolus; Site: Port-a-cath; ph 15:50 Follow up: Response: No adverse reaction; IV Status: Completed infusion; IV Intake: ph 1000ml Intake: 15:50 IV: 1000ml; Total: 1000ml. ph Outcome: 15:33 Discharge ordered by . snw 16:05 Patient left the ED. ph 16:05 Discharged to home via wheelchair, with family. ph 16:05 Condition: good 16:05 Discharge instructions given to patient, family, Instructed on discharge instructions, follow up and referral plans. medication usage, Demonstrated understanding of instructions, follow-up care, medications, Prescriptions given X 1. Signatures: Dispatcher [employer] EDME Keesha Garcia, ELOISE-C CENTRAL OFFICE MECHANIC-Emiw Damaris SanchezPearl voss, RN RN Iman Hoffmann RN RN [place], Maddie [facility]
[2020-01-08 16:22] VITALS: TEMP 97.8
[2020-01-08 16:23] VITALS: BP 112/84; O2SAT 100
[2020-01-10] MEDS ORDERED: ACETAMINOPHEN 325 MG TABLET ONE (19:29)
== END 2020-01-08 16:05 | disposition home or self-care (01) ==
LOC: ER 10:01
DX: R07.9 Chest pain, unspecified (principal); E86.0 Dehydration
CPT/HCPCS: 96361; 93005; 85025; 80048; 36415; 86900; 83735; 86850; 85610; 86902; 86870; 86901; 80076; 84484; 83880; 71045; 82805; 96374; 99285; J7040 ×2